=== PATIENT | female | born 1955 | race Caucasian/White ===

== ENCOUNTER 2016-06-25 10:10 | Emergency (ER) | payer OTHER ==
[2016-06-25] MEDS ORDERED: ONDANSETRON 4 MG/2 ML VIAL IVP STA (11:07)
[2016-06-25] MEDS ORDERED: PANTOPRAZOLE 40 MG/10 ML VIAL IVP STA (11:07)
[2016-06-25] MEDS ORDERED: SODIUM CHLORIDE 0.9% 1,000 ML IV STA (11:07)
[2016-06-25] MEDS ORDERED: MORPHINE SULFATE 4 MG/ML SYRINGE IVP STA ×2 (11:07→12:19)
--- NOTE | 2016-06-25 11:25 | ED ---
General Adult HPI - General Chief complaint: Abdominal Pain Stated complaint: rt side pain Time Seen by Provider: 06/25/16 10:53 Source: patient, RN notes reviewed, old records reviewed Mode of arrival: ambulatory Limitations: no limitations - History of Present Illness Initial comments: This is a 6-year-old female year for evaluation of right upper quadrant epigastric abdominal pain. Patient has medical history of similar issues. No comorbid conditions, patient has had thorough evaluation of this pain including EGD MRCP ultrasound, patient has had a cholecystectomy, she is told she has before mildly elevated liver enzymes. But no known causative issue of pain. Patient did see her family doctor yesterday and was given nausea medications and at that did help further the day but her pain returned today and was worse. Patient denies any fevers or Trilogy no diarrhea. - Related Data Home Medications Medication Instructions Recorded Confirmed PARoxetine [Paxil] 20 mg PO DAILY 06/01/15 06/25/16 OXcarbazepine [Trileptal] 300 mg PO QAM 03/03/16 06/25/16 Acetaminophen Tab [Tylenol Tab] 650 mg PO Q4H PRN 06/25/16 06/25/16 OXcarbazepine [Trileptal] 600 mg PO HS 06/25/16 06/25/16 Verapamil [Isoptin] 40 mg PO DAILY 06/25/16 06/25/16 Previous Rx's Medication Instructions Recorded Acetaminophen with Codeine 1 tab PO Q4H PRN #20 tab 06/25/16 [Tylenol w/codeine #3] Prochlorperazine [Compazine] 10 mg PO Q6H PRN #30 tab 06/25/16 Allergies Allergy/AdvReac Type Severity Reaction Status Date / Time ciprofloxacin [From Cipro] Allergy Rash/Hives Verified 06/25/16 10:57 ciprofloxacin HCl Allergy Rash/Hives Verified 06/25/16 10:57 [From Cipro] clarithromycin [From Biaxin] Allergy Rash/Hives Verified 06/25/16 10:57 hydrocodone bitartrate Allergy Rash/Hives Verified 06/25/16 10:57 [From Vicodin] hydromorphone HCl Allergy Itching Verified 06/25/16 10:57 [From Dilaudid] levofloxacin [From Levaquin] Allergy Rash/Hives Verified 06/25/16 10:57 lorazepam [From Ativan] Allergy SEIZURES Verified 06/25/16 10:57 meloxicam [From Mobic] Allergy Rash/Hives Verified 06/25/16 10:57 oxycodone Allergy Confusion Verified 06/25/16 10:57 Penicillins Allergy Swelling Verified 06/25/16 10:57 IN THROAT promethazine HCl Allergy SEIZURES Verified 06/25/16 10:57 [From Phenergan] propoxyphene napsylate Allergy Rash/Hives Verified 06/25/16 10:57 [From Darvocet-N] tramadol HCl [From Ultram] Allergy SEIZURES Verified 06/25/16 10:57 Review of Systems ROS Statement: Those systems with pertinent positive or pertinent negative responses have been documented in the HPI. ROS Other: All systems not noted in ROS Statement are negative. Past Medical History Past Medical History: Cancer, Hypertension, Seizure Disorder Additional Past Medical History / Comment(s): ABDOMINAL PAIN, Last seizure 2015, Chronic Pancreatitis. Hx Kidney Stones, Hx Cervical Cancer. HIATAL HERNIA. History of Any Multi-Drug Resistant Organisms: None Reported Past Surgical History: Appendectomy, Bowel Resection, Cholecystectomy, Hysterectomy Additional Past Surgical History / Comment(s): Surgery on RT Salivary Gland. RT ELBOW NERVE SURG. EGD & COLONOSCOPY, JADEN FUNDLAPLASTY 06/2015 Past Anesthesia/Blood Transfusion Reactions: Postoperative Nausea & Vomiting ( PONV) Additional Past Anesthesia/Blood Transfusion Reaction / Comment(s): TAKES LONG TIME TO AWAKEN Past Psychological History: Anxiety, Panic Disorder Additional Psychological History / Comment(s): PT STATED SHE SEE'S A THERAPIST. CURRENTLY DENIES ANY THOUGHTS OF HARMING SELF NO HOPELESSNESS FELINGS. Smoking Status: Former smoker Past Alcohol Use History: None Reported Additional Past Alcohol Use History / Comment(s): SMOKED 20 YEARS, 5 PPD. QUIT 1998 Past Drug Use History: None Reported - Past Family History Mother Sister(s) Family Medical History: Cancer Additional Family Medical History / Comment(s): COLON CANCER. GRANDFATHER ALSO HAD COLON CANCER Mother Family Medical History: Cancer, Myocardial Infarction ([place]) General Exam Limitations: no limitations General appearance: alert, in no apparent distress Head exam: Present: atraumatic, normocephalic, normal inspection Eye exam: Present: normal appearance, PERRL, EOMI. Absent: scleral icterus, conjunctival injection, periorbital swelling ENT exam: Present: normal exam, mucous membranes moist Neck exam: Present: normal inspection. Absent: tenderness, meningismus, lymphadenopathy Respiratory exam: Present: normal lung sounds bilaterally. Absent: respiratory distress, wheezes, rales, rhonchi, stridor Cardiovascular Exam: Present: regular rate, normal rhythm, normal heart sounds. Absent: systolic murmur, diastolic murmur, rubs, gallop, clicks GI/Abdominal exam: Present: soft, tenderness (Right upper quadrant), normal bowel sounds. Absent: distended, guarding, rebound, rigid Extremities exam: Present: normal inspection, full ROM, normal capillary refill. Absent: tenderness, pedal edema, joint swelling, calf tenderness Back exam: Present: normal inspection Neurological exam: Present: alert, oriented X3, CN II-XII intact Psychiatric exam: Present: normal affect, normal mood Skin exam: Present: warm, dry, intact, normal color. Absent: rash Course Vital Signs 06/25/16 10:22 Temperature 98.5 F Pulse Rate 87 Respiratory 20 Rate Blood Pressure 128/72 O2 Sat by Pulse 98 Oximetry - Reevaluation(s) Reevaluation #1: 06/25/16 12:20 Patient spent this time is resolved Medical Decision Making - Medical Decision Making 60 female with acute on chronic intractable abdominal pain, significant prior workup including multiple different testing and evaluation by stiffer specialist , patient is having exacerbation of pain today, laboratory is normal she is feeling better at this time and can be discharged home - Lab Data Result diagrams: 06/25/16 11:46 Lab Results 06/25/16 Range/Units 11:46 Sodium 141 (137-145) mmol/L Potassium 4.3 (3.5-5.1) mmol/L Chloride 106 (98-107) mmol/L Carbon Dioxide 24 (22-30) mmol/L Anion Gap 11 mmol/L BUN 10 (7-17) mg/dL Creatinine 0.65 (0.52-1.04) mg/dL Est GFR (MDRD) Af Amer >60 (>60 ml/min/1.73 sqM) Est GFR (MDRD) Non-Af >60 (>60 ml/min/1.73 sqM) Glucose 88 (74-99) mg/dL Calcium 9.4 (8.4-10.2) mg/dL Total Bilirubin 0.5 (0.2-1.3) mg/dL AST 22 (14-36) U/L ALT 32 (9-52) U/L Alkaline Phosphatase 116 (38-126) U/L Total Protein 6.6 (6.3-8.2) g/dL Albumin 4.3 (3.5-5.0) g/dL Amylase 49 (30-110) U/L Lipase 223 (23-300) U/L Disposition Clinical Impression: GERD (gastroesophageal reflux disease) Disposition: HOME SELF-CARE Instructions: Abdominal Pain (ED) Prescriptions: Acetaminophen with Codeine [Tylenol w/codeine #3] 1 tab PO Q4H PRN #20 tab PRN Reason: Pain Prochlorperazine [Compazine] 10 mg PO Q6H PRN #30 tab PRN Reason: Nausea Referrals: Sharon Paige MD [Primary Care Provider] - 1-2 days
[2016-06-25 12:02] LABS: ALT 32 U/L (9-52); AST 22 U/L (14-36); Alkaline Phosphatase 116 U/L (38-126); Amylase 49 U/L (30-110); Anion Gap 11 mmol/L; Blood Urea Nitrogen 10 mg/dL (7-17); Calcium 9.4 mg/dL (8.4-10.2); Carbon Dioxide 24 mmol/L (22-30); Chloride 106 mmol/L (98-107); Glucose 88 mg/dL (74-99); Non-African American GFR(MDRD) >60 (>60 ml/min/1.73 sqM); Potassium 4.3 mmol/L (3.5-5.1); Sodium 141 mmol/L (137-145); Total Bilirubin 0.5 mg/dL (0.2-1.3); Total Protein 6.6 g/dL (6.3-8.2)
[2016-06-25 12:16] LABS: Creatine Kinase 54 U/L (30-135)
[2016-06-25] MEDS ORDERED: METOCLOPRAMIDE 5 MG/ML 2 ML VIAL IVP STA (12:18)
[2016-06-25] MEDS ORDERED: diphenhydrAMINE 50 MG/ML 1 ML VIAL IVP STA (12:18)
[2016-06-25 12:29] LABS: Creatine Kinase MB 0.4 ng/mL (0.0-2.4); Troponin I <0.012 ng/mL (0.000-0.034)
[2016-06-25 12:44] VITALS: RESP 18
[2016-06-25 13:09] LABS: Basophils % (A) 1 %; CH 33.6; CHCM 35.7; Eosinophils # (A) 0.2 k/uL (0-0.7); Eosinophils % (A) 2 %; HCT 41.7 % (34.0-46.0); HDW 2.68; Luc # (Auto) 0.15; Luc % (Auto) 2; Lymphocytes # (A) 1.5 k/uL (1.0-4.8); Lymphocytes % (A) 23 %; MCH 31.7 pg (25.0-35.0); MCHC 33.6 g/dL (31.0-37.0); MCV 94.6 fL (80.0-100.0); Mean Platelet Volume 6.8; Monocytes # (A) 0.4 k/uL (0-1.0); Monocytes % (A) 6 %; Neutrophils # (A) 4.2 k/uL (1.3-7.7); Neutrophils % (A) 66 %; RBC 4.41 m/uL (3.80-5.40); RDW 12.3 % (11.5-15.5); WBC 6.5 k/uL (3.8-10.6); WBC (Perox) 6.37
[2016-06-25 13:20] VITALS: BP 140/67; PULSE 92; TEMP 97.8
== END 2016-06-25 13:20 | disposition home or self-care (01) ==
LOC: EC 10:10
DX: K21.9 Gastro-esophageal reflux disease without esophagitis (principal); F41.9 Anxiety disorder, unspecified; F41.0 Panic disorder [episodic paroxysmal anxiety]; G40.909 Epilepsy, unspecified, not intractable, without status epilepticus; I10 Essential (primary) hypertension; Z87.891 Personal history of nicotine dependence; Z79.899 Other long term (current) drug therapy; Z88.1 Allergy status to other antibiotic agents; Z88.5 Allergy status to narcotic agent; Z88.8 Allergy status to other drugs, medicaments and biological substances; Z88.0 Allergy status to penicillin; Z87.19 Personal history of other diseases of the digestive system; Z85.41 Personal history of malignant neoplasm of cervix uteri; Z90.49 Acquired absence of other specified parts of digestive tract; Z90.710 Acquired absence of both cervix and uterus; Z98.890 Other specified postprocedural states
CPT/HCPCS: 99284; 96374; 96375 ×4; 96376; 96361; 36415; 80053; 82150; 82550; 82553; 83690; 84484; 85025; J2270; J1200; J2765; J2405; C9113

== ENCOUNTER 2016-06-29 12:05 | Emergency (ER) | payer OTHER ==
[2016-06-29 12:35] VITALS: RESP 16
[2016-06-29] MEDS ORDERED: ONDANSETRON 4 MG/2 ML VIAL IVP STA (12:46)
[2016-06-29] MEDS ORDERED: DIAZEPAM 5 MG/ML 2 ML SYRINGE IVP STA (12:46)
[2016-06-29] MEDS ORDERED: SODIUM CHLORIDE 0.9% 1,000 ML IV STA ×2 (12:46)
--- NOTE | 2016-06-29 12:52 | ED ---
General Adult HPI - General Chief complaint: Abdominal Pain Stated complaint: RUQ Pain Time Seen by Provider: 06/29/16 12:33 Source: family, RN notes reviewed Mode of arrival: ambulatory Limitations: no limitations - History of Present Illness Initial comments: Patient is a 60-year-old female with significant past medical history for finger times, who presents emergency room today with a chief complaint of increased abdominal pain to the right upper quadrant. Patient does admit that she's had this pain in the past. She admits that she's had increased nausea. She states the nausea is worse than the pain. She states she does take nausea medication of Reglan at home. States tried this with little relief. Denies any vomiting. Patient admits that when she was in the waiting room waiting to be seen she did have a seizure. She does remember it. She states consistent with seizure that she's had in the past. She does admit that she takes Trileptal. States been taking this medication. Patient denies any other complaints or symptoms. Patient denies any recent fever, chills, shortness of breath, chest pain, vomiting, numbness or tingling, dysuria or hematuria, constipation or diarrhea, headaches or visual changes, or any other complaints. - Related Data Home Medications Medication Instructions Recorded Confirmed PARoxetine [Paxil] 20 mg PO DAILY 06/01/15 06/29/16 OXcarbazepine [Trileptal] 300 mg PO QAM 03/03/16 06/29/16 Acetaminophen Tab [Tylenol Tab] 650 mg PO Q4H PRN 06/25/16 06/29/16 OXcarbazepine [Trileptal] 600 mg PO HS 06/25/16 06/29/16 Verapamil [Isoptin] 40 mg PO HS 06/25/16 06/29/16 Previous Rx's Medication Instructions Recorded Acetaminophen with Codeine 1 tab PO Q4H PRN #20 tab 06/25/16 [Tylenol w/codeine #3] Prochlorperazine [Compazine] 10 mg PO Q6H PRN #30 tab 06/25/16 Metoclopramide HCl [Reglan] 10 mg PO Q6HR PRN #5 day 06/29/16 Allergies Allergy/AdvReac Type Severity Reaction Status Date / Time ciprofloxacin [From Cipro] Allergy Rash/Hives Verified 06/29/16 13:01 ciprofloxacin HCl Allergy Rash/Hives Verified 06/29/16 13:01 [From Cipro] clarithromycin [From Biaxin] Allergy Rash/Hives Verified 06/29/16 13:01 hydrocodone bitartrate Allergy Rash/Hives Verified 06/29/16 13:01 [From Vicodin] hydromorphone HCl Allergy Itching Verified 06/29/16 13:01 [From Dilaudid] levofloxacin [From Levaquin] Allergy Rash/Hives Verified 06/29/16 13:01 lorazepam [From Ativan] Allergy SEIZURES Verified 06/29/16 13:01 meloxicam [From Mobic] Allergy Rash/Hives Verified 06/29/16 13:01 oxycodone Allergy Confusion Verified 06/29/16 13:01 Penicillins Allergy Swelling Verified 06/29/16 13:01 IN THROAT promethazine HCl Allergy SEIZURES Verified 06/29/16 13:01 [From Phenergan] propoxyphene napsylate Allergy Rash/Hives Verified 06/29/16 13:01 [From Darvocet-N] tramadol HCl [From Ultram] Allergy SEIZURES Verified 06/29/16 13:01 Review of Systems ROS Statement: Those systems with pertinent positive or pertinent negative responses have been documented in the HPI. ROS Other: All systems not noted in ROS Statement are negative. Past Medical History Past Medical History: Cancer, Hypertension, Seizure Disorder Additional Past Medical History / Comment(s): ABDOMINAL PAIN, Last seizure 2015, Chronic Pancreatitis. Hx Kidney Stones, Hx Cervical Cancer. HIATAL HERNIA. History of Any Multi-Drug Resistant Organisms: None Reported Past Surgical History: Appendectomy, Bowel Resection, Cholecystectomy, Hysterectomy Additional Past Surgical History / Comment(s): Surgery on RT Salivary Gland. RT ELBOW NERVE SURG. EGD & COLONOSCOPY, JADEN FUNDLAPLASTY 06/2015 Past Anesthesia/Blood Transfusion Reactions: Postoperative Nausea & Vomiting ( PONV) Additional Past Anesthesia/Blood Transfusion Reaction / Comment(s): TAKES LONG TIME TO AWAKEN Past Psychological History: Anxiety, Panic Disorder Additional Psychological History / Comment(s): PT STATED SHE SEE'S A THERAPIST. CURRENTLY DENIES ANY THOUGHTS OF HARMING SELF NO HOPELESSNESS FELINGS. Smoking Status: Former smoker Past Alcohol Use History: None Reported Additional Past Alcohol Use History / Comment(s): SMOKED 20 YEARS, 5 PPD. QUIT 1998 Past Drug Use History: None Reported - Past Family History Mother Sister(s) Family Medical History: Cancer Additional Family Medical History / Comment(s): COLON CANCER. GRANDFATHER ALSO HAD COLON CANCER Mother Family Medical History: Cancer, Myocardial Infarction ([place]) General Exam - General Exam Comments Initial Comments: General: The patient is awake and alert, in no distress, and does not appear acutely ill. Eye: Pupils are equal, round and reactive to light, extra-ocular movements are intact. No nystagmus. There is normal conjunctiva bilaterally. No signs of icterus. Ears, nose, mouth and throat: There are moist mucous membranes and no oral lesions. Neck: The neck is supple, there is no tenderness or JVD. Cardiovascular: There is a regular rate and rhythm. No murmur, rub or gallop is appreciated. Respiratory: Lungs are clear to auscultation, respirations are non-labored, breath sounds are equal. No wheezes, stridor, rales, or rhonchi. Gastrointestinal: Normal appearance then. Normal bowel sounds. Abdomen soft on palpation. Patient does have mild tenderness right upper quadrant. No rebound tenderness. No guarding. No CVA tenderness. Musculoskeletal: Normal ROM, no tenderness. Strength 5/5. Sensation intact. Pulses equal bilaterally 2+. Neurological: A&O x 3. CN II-XII intact, There are no obvious motor or sensory deficits. Coordination appears grossly intact. Speech is normal. Skin: Skin is warm and dry and no rashes or lesions are noted. Psychiatric: Cooperative, appropriate mood & affect, normal judgment. Limitations: no limitations Course Vital Signs 06/29/16 12:29 Temperature 98.9 F Pulse Rate 64 Respiratory 16 Rate Blood Pressure 163/77 O2 Sat by Pulse 96 Oximetry Medical Decision Making - Medical Decision Making Case discussed in detail with attending physician Dr. Terrazas. Patient reexamined at this time shows no signs of distress. Patient labs been reviewed and are unremarkable. Patient states she's feeling much better here in the emergency room after she was given the Reglan. She'll be discharged home on Reglan advised follow-up with her GI specialist and also family doctor. Advised return if any symptoms increase or worsen or for any other concerns. - Lab Data Result diagrams: 06/29/16 13:42 06/29/16 13:42 Lab Results 06/29/16 06/29/16 06/29/16 Range/Units 13:42 13:42 14:42 WBC 6.3 (3.8-10.6) k/uL RBC 4.30 (3.80-5.40) m/uL Hgb 14.2 (11.4-16.0) gm/dL Hct 40.7 (34.0-46.0) % MCV 94.6 (80.0-100.0) fL MCH 32.9 (25.0-35.0) pg MCHC 34.8 (31.0-37.0) g/dL RDW 12.2 (11.5-15.5) % Plt Count 219 (150-450) k/uL Neutrophils % 68 % Lymphocytes % 22 % Monocytes % 6 % Eosinophils % 2 % Basophils % 1 % Neutrophils # 4.3 (1.3-7.7) k/uL Lymphocytes # 1.4 (1.0-4.8) k/uL Monocytes # 0.4 (0-1.0) k/uL Eosinophils # 0.1 (0-0.7) k/uL Basophils # 0.1 (0-0.2) k/uL Sodium 143 (137-145) mmol/L Potassium 3.7 (3.5-5.1) mmol/L Chloride 108 H (98-107) mmol/L Carbon Dioxide 24 (22-30) mmol/L Anion Gap 11 mmol/L BUN 11 (7-17) mg/dL Creatinine 0.60 (0.52-1.04) mg/dL Est GFR (MDRD) Af Amer >60 (>60 ml/min/1.73 sqM) Est GFR (MDRD) Non-Af >60 (>60 ml/min/1.73 sqM) Glucose 119 H (74-99) mg/dL Calcium 9.7 (8.4-10.2) mg/dL Total Bilirubin 0.5 (0.2-1.3) mg/dL AST 22 (14-36) U/L ALT 28 (9-52) U/L Alkaline Phosphatase 99 (38-126) U/L Total Protein 6.4 (6.3-8.2) g/dL Albumin 4.2 (3.5-5.0) g/dL Amylase 54 (30-110) U/L Lipase 258 (23-300) U/L Urine Color Yellow Urine Appearance Clear (Clear) Urine pH 6.5 (5.0-8.0) Ur Specific [place] 1.015 (1.001-1.035) Urine Protein Negative (Negative) Urine Glucose (UA) Negative (Negative) Urine Ketones Negative (Negative) Urine Blood Negative (Negative) Urine Nitrate Negative (Negative) Urine Bilirubin Negative (Negative) Urine Urobilinogen <2.0 (<2.0) mg/dL Ur Leukocyte Esterase Small H (Negative) Urine RBC <1 (0-5) /hpf Urine WBC 5 (0-5) /hpf Ur Squamous Epith Cells 1 (0-4) /hpf Urine Bacteria Rare H (None) /hpf Disposition Clinical Impression: Nausea, Chronic abdominal pain Disposition: HOME SELF-CARE Condition: Good Instructions: Abdominal Pain (ED) Additional Instructions: Please follow up with the family doctor/ GI specialist over the next 2-5 days as discussed. Please use nausea medication as prescribed and return here to the emergency room if any symptoms increase or worsen or for any other concerns. Prescriptions: Metoclopramide HCl [Reglan] 10 mg PO Q6HR PRN #5 day PRN Reason: Nausea Referrals: Sharon Paige MD [Primary Care Provider] - 1-2 days Angeles Monreal MD [STAFF PHYSICIAN] - 1-2 days Time of Disposition: 15:24
[2016-06-29 13:59] LABS: Basophils # (A) 0.1 k/uL (0-0.2); Basophils % (A) 1 %; CH 33.8; CHCM 35.9; Eosinophils # (A) 0.1 k/uL (0-0.7); Eosinophils % (A) 2 %; HCT 40.7 % (34.0-46.0); HDW 2.77; HGB 14.2 gm/dL (11.4-16.0); Luc # (Auto) 0.13; Luc % (Auto) 2; Lymphocytes # (A) 1.4 k/uL (1.0-4.8); Lymphocytes % (A) 22 %; MCH 32.9 pg (25.0-35.0); MCHC 34.8 g/dL (31.0-37.0); MCV 94.6 fL (80.0-100.0); Mean Platelet Volume 7.2; Monocytes # (A) 0.4 k/uL (0-1.0); Monocytes % (A) 6 %; Neutrophils # (A) 4.3 k/uL (1.3-7.7); Neutrophils % (A) 68 %; RDW 12.2 % (11.5-15.5); WBC 6.3 k/uL (3.8-10.6); WBC (Perox) 6.66
[2016-06-29 14:13] LABS: ALT 28 U/L (9-52); AST 22 U/L (14-36); Alkaline Phosphatase 99 U/L (38-126); Amylase 54 U/L (30-110); Anion Gap 11 mmol/L; Blood Urea Nitrogen 11 mg/dL (7-17); Calcium 9.7 mg/dL (8.4-10.2); Carbon Dioxide 24 mmol/L (22-30); Chloride 108 mmol/L (98-107); Glucose 119 mg/dL (74-99); Non-African American GFR(MDRD) >60 (>60 ml/min/1.73 sqM); Potassium 3.7 mmol/L (3.5-5.1); Sodium 143 mmol/L (137-145); Total Bilirubin 0.5 mg/dL (0.2-1.3); Total Protein 6.4 g/dL (6.3-8.2)
--- NOTE | 2016-06-29 14:38 | XR ---
EXAMINATION TYPE: XR KUB DATE OF EXAM: 06/29/2016 2:15 PM CLINICAL HISTORY: Right-sided abdominal pain for a few weeks. History of pancreatitis and colitis. TECHNIQUE: 2 upright KUB images of the abdomen are obtained. COMPARISON: CT abdomen and pelvis February 04, 2016. Abdominal x-ray February 23, 2016. FINDINGS: Scattered gas is seen in non-distended small bowel loops. Gas and fecal material is seen in non-distended colon densities from prior surgery at pubic symphysis are redemonstrated. Cholecyste ctomy clips are again seen. Lung bases are clear. No pneumoperitoneum is identified. IMPRESSION: Overall nonobstructive bowel gas pattern.
[2016-06-29] MEDS ORDERED: ACETAMINOPHEN IV (For NPO) 1,000 MG in SALINE 100 100ML.BAG IVPB STA (14:41)
[2016-06-29] MEDS ORDERED: METOCLOPRAMIDE 5 MG/ML 2 ML VIAL IVP STA (14:59)
[2016-06-29 15:00] LABS: Appearance,Urine Clear (Clear); Bacteria,Urine Rare /hpf; Bilirubin,Urine Negative (Negative); Glucose,Urine (UA) Negative (Negative); Ketones,Urine Negative (Negative); Leukocyte Esterase,Urine Small (Negative); Nitrite,Urine Negative (Negative); PH, Urine 6.5 (5.0-8.0); Particle Count 1429; Protein,Urine Negative (Negative); RBC,Urine <1 /hpf (0-5); Specific Gravity,Urine 1.015 (1.001-1.035); Squamous Epithelial Cell,Urine 1 /hpf (0-4); UA Billing (MACRO vs. MICRO) MICRO; Urobilinogen,Urine <2.0 mg/dL (<2.0); WBC,Urine 5 /hpf (0-5)
[2016-06-29 15:49] VITALS: BP 155/78; PULSE 94; TEMP 97.5
== END 2016-06-29 15:49 | disposition home or self-care (01) ==
LOC: EC 12:05
DX: G89.29 Other chronic pain (principal); R10.11 Right upper quadrant pain; R11.0 Nausea; G40.909 Epilepsy, unspecified, not intractable, without status epilepticus; I10 Essential (primary) hypertension; F41.0 Panic disorder [episodic paroxysmal anxiety]; Z79.899 Other long term (current) drug therapy; Z87.891 Personal history of nicotine dependence; Z87.19 Personal history of other diseases of the digestive system; Z87.442 Personal history of urinary calculi
CPT/HCPCS: 36415; 80053; 80183; 82150; 83690; 85025; 81001; 74000; 99284; 96365; 96375 ×2; 96361 ×2; J2765; J3360; J2405; J0131

== ENCOUNTER → 2016-08-07 | Outpatient (CLI) | payer OTHER ==
--- NOTE | 2016-08-07 11:35 | FL ---
EXAMINATION TYPE: FL UGI w esophagus DATE OF EXAM: 08/07/2016 10:41 AM COMPARISON: Prior exam 03 July 2015 HISTORY: Gastroesophageal reflux disease TECHNIQUE: A single/double contrast UGI study is performed. FINDINGS: Swallowing mechanism is normal. No abnormal collections of contrast, the esophagus shows no rmal motility, no extrinsic or intrinsic lesion. At the level of the distal esophagus there is promin ence of the distal esophagus, spectral is a possible recurrent small hiatal hernia present. Gastroeso phageal reflux, reflux from the level of the recurrent hiatal hernia or distal esophageal pouch is no flory into the thoracic esophagus, tertiary esophageal contractions are present. Stomach shows no abnor mal collections of contrast. Duodenal bulb and duodenal sweep are normal. IMPRESSION: Findings compatible with patient's history gastroesophageal reflux disease. Suspect recur rence of hiatal hernia.
== END | disposition home or self-care (01) ==
LOC: RADFLWHC 09:32
PROVIDERS: ATTEND Surgery
DX: K21.9 Gastro-esophageal reflux disease without esophagitis (principal)
CPT/HCPCS: 74240

== ENCOUNTER 2016-08-27 21:08 | Emergency (ER) | payer OTHER ==
[2016-08-27 21:37] VITALS: RESP 18
[2016-08-27] MEDS ORDERED: SODIUM CHLORIDE 0.9% 1,000 ML IV STA (22:16)
--- NOTE | 2016-08-27 22:32 | ED ---
Headache HPI - General Chief Complaint: Headache Stated Complaint: HX: Seizure/brain shocks Time Seen by Provider: 08/27/16 21:50 Source: RN notes reviewed Mode of arrival: wheelchair Limitations: no limitations - History of Present Illness Initial Comments: Patient is a 61-year-old female presents emergency room for evaluation. Patient states she's been having "brain shocks" throughout the day. Patient does state that she's experienced these symptoms in the past before. Patient states she has a history of seizures. Patient states that today she is having worsening brain shocks and feels like her brain is being squeezed. Patient states feeling very drowsy and tired starting this afternoon. Patient's is present with patient. Patient's states that patient began complaining of headache while shopping around noon. Patient's states they went home and patient took a Valium and went for nap. Patient's states that patient was still complaining of head pain so they brought her to the emergency room. Patient's states after arriving in the emergency room patient has been more tired and not acting herself. Patient states she feels weak all over. Patient denies any one-sided weakness. Patient denies changes in vision. Patient denies chest pain, shortness of breath, dizziness. Patient's states that patient takes Briviact for seizures. Patient's states that they had a recent increase in the dose of Briviact. Patient denies alcohol use or illicit drug use. Patient denies accidentally taking more than one of her medications at a time. - Related Data Home Medications Medication Instructions Recorded Confirmed Acetaminophen Tab [Tylenol Tab] 650 mg PO Q4H PRN 06/25/16 08/27/16 Verapamil [Isoptin] 40 mg PO TID 06/25/16 08/27/16 Brivaracetam [Briviact] 100 mg PO BID 08/12/16 08/27/16 Omeprazole [PriLOSEC] 20 mg PO AC-BRKFST 08/12/16 08/27/16 Pyridoxine [Vitamin B-6] 100 mg PO DAILY 08/12/16 08/27/16 Allergies Allergy/AdvReac Type Severity Reaction Status Date / Time ciprofloxacin [From Cipro] Allergy Rash/Hives Verified 08/27/16 21:33 ciprofloxacin HCl Allergy Rash/Hives Verified 08/27/16 21:33 [From Cipro] clarithromycin [From Biaxin] Allergy Rash/Hives Verified 08/27/16 21:33 hydrocodone bitartrate Allergy Rash/Hives Verified 08/27/16 21:33 [From Vicodin] hydromorphone HCl Allergy Itching Verified 08/27/16 21:33 [From Dilaudid] levofloxacin [From Levaquin] Allergy Rash/Hives Verified 08/27/16 21:33 lorazepam [From Ativan] Allergy SEIZURES Verified 08/27/16 21:33 meloxicam [From Mobic] Allergy Rash/Hives Verified 08/27/16 21:33 oxycodone Allergy Confusion Verified 08/27/16 21:33 Penicillins Allergy Swelling Verified 08/27/16 21:33 IN THROAT promethazine HCl Allergy SEIZURES Verified 08/27/16 21:33 [From Phenergan] propoxyphene napsylate Allergy Rash/Hives Verified 08/27/16 21:33 [From Darvocet-N] tramadol HCl [From Ultram] Allergy SEIZURES Verified 08/27/16 21:33 Review of Systems ROS Statement: Those systems with pertinent positive or pertinent negative responses have been documented in the HPI. ROS Other: All systems not noted in ROS Statement are negative. Past Medical History Past Medical History: Cancer, Hypertension, Seizure Disorder Additional Past Medical History / Comment(s): ABDOMINAL PAIN, Last seizure 2015, Chronic Pancreatitis. Hx Kidney Stones, Hx Cervical Cancer. HIATAL HERNIA. History of Any Multi-Drug Resistant Organisms: None Reported Past Surgical History: Appendectomy, Bowel Resection, Cholecystectomy, Hysterectomy Additional Past Surgical History / Comment(s): Surgery on RT Salivary Gland. RT ELBOW NERVE SURG. EGD & COLONOSCOPY, JADEN FUNDLAPLASTY 06/2015 Past Anesthesia/Blood Transfusion Reactions: Postoperative Nausea & Vomiting ( PONV) Additional Past Anesthesia/Blood Transfusion Reaction / Comment(s): TAKES LONG TIME TO AWAKEN Past Psychological History: Anxiety, Panic Disorder Additional Psychological History / Comment(s): PT STATED SHE SEE'S A THERAPIST. CURRENTLY DENIES ANY THOUGHTS OF HARMING SELF NO HOPELESSNESS FELINGS. Smoking Status: Former smoker Past Alcohol Use History: None Reported Additional Past Alcohol Use History / Comment(s): SMOKED 20 YEARS, 5 PPD. QUIT 1998 Past Drug Use History: None Reported - Past Family History Mother Sister(s) Family Medical History: Cancer Additional Family Medical History / Comment(s): COLON CANCER. GRANDFATHER ALSO HAD COLON CANCER Mother Family Medical History: Cancer, Myocardial Infarction ([place]) General Exam - General Exam Comments Initial Comments: Sitting in exam room, sleeping, answers questions when spoken to. Limitations: no limitations General appearance: alert, in no apparent distress Head exam: Present: atraumatic, normocephalic, normal inspection Eye exam: Present: normal appearance, PERRL, EOMI Pupils: Present: normal accommodation Neck exam: Present: normal inspection, full ROM. Absent: tenderness, lymphadenopathy Respiratory exam: Present: normal lung sounds bilaterally. Absent: respiratory distress Cardiovascular Exam: Present: regular rate, normal rhythm, normal heart sounds Extremities exam: Present: normal inspection, full ROM, normal capillary refill Back exam: Present: normal inspection, full ROM Expanded Neurological exam: Present: inattentive Sensory exam: Upper Extremity Light Touch: Normal, Lower Extremity Light Touch: Normal Motor strength exam: RUE: 5, LUE: 5, RLE: 5, LLE: 5 Eye Response: (3) open to voice Motor Response: (6) obeys commands Verbal Response: (4) confused conversation Psychiatric exam: Present: normal affect, normal mood Skin exam: Present: warm, dry, intact, normal color. Absent: rash Course Vital Signs 08/27/16 08/27/16 08/27/16 21:33 22:18 22:49 Temperature 98.1 F Pulse Rate 98 84 83 Respiratory 18 18 18 Rate Blood Pressure 158/71 155/71 164/79 O2 Sat by Pulse 99 Oximetry 08/27/16 08/27/16 08/28/16 23:18 23:48 01:22 Temperature 97.2 F L Pulse Rate 86 82 80 Respiratory 18 18 18 Rate Blood Pressure 141/71 143/87 127/59 O2 Sat by Pulse 100 100 98 Oximetry Medical Decision Making - Medical Decision Making Patient is a 61-year-old female presents to the emergency room for evaluation of headache and drowsiness. Patient's lab show no concerning findings. Urine drug screen significant for benzos. It is possible patient's seizure medications could be causing her symptoms or patient may have taken too much of her valium. CT of brain negative for any acute findings. Patient was given fluids. Patient's symptoms significantly improved and wished to be discharged home. Advised patient to follow-up with her neurologist or primary care provider first thing tomorrow morning. Patient and her state they understand everything that was discussed with them. Return parameters discussed. Case discussed with Dr. Nogueira. - Lab Data Result diagrams: 08/27/16 23:07 08/27/16 23:07 Lab Results 08/27/16 08/27/16 08/27/16 Range/Units 23:07 23:07 23:07 WBC 7.8 (3.8-10.6) k/uL RBC 4.10 (3.80-5.40) m/uL Hgb 13.7 (11.4-16.0) gm/dL Hct 38.2 (34.0-46.0) % MCV 93.2 (80.0-100.0) fL MCH 33.5 (25.0-35.0) pg MCHC 36.0 (31.0-37.0) g/dL RDW 12.6 (11.5-15.5) % Plt Count 239 (150-450) k/uL Neutrophils % 52 % Lymphocytes % 35 % Monocytes % 6 % Eosinophils % 4 % Basophils % 1 % Neutrophils # 4.0 (1.3-7.7) k/uL Lymphocytes # 2.7 (1.0-4.8) k/uL Monocytes # 0.4 (0-1.0) k/uL Eosinophils # 0.3 (0-0.7) k/uL Basophils # 0.0 (0-0.2) k/uL PT (9.0-12.0) sec INR (<1.1) APTT (22.0-30.0) sec Sodium 142 (137-145) mmol/L Potassium 4.1 (3.5-5.1) mmol/L Chloride 110 H (98-107) mmol/L Carbon Dioxide 24 (22-30) mmol/L Anion Gap 8 mmol/L BUN 12 (7-17) mg/dL Creatinine 0.70 (0.52-1.04) mg/dL Est GFR (MDRD) Af Amer >60 (>60 ml/min/1.73 sqM) Est GFR (MDRD) Non-Af >60 (>60 ml/min/1.73 sqM) Glucose 95 (74-99) mg/dL Calcium 9.2 (8.4-10.2) mg/dL Magnesium 2.0 (1.6-2.3) mg/dL Total Bilirubin 0.4 (0.2-1.3) mg/dL AST 26 (14-36) U/L ALT 33 (9-52) U/L Alkaline Phosphatase 94 (38-126) U/L Total Creatine Kinase 42 (30-135) U/L CK-MB (CK-2) 0.5 (0.0-2.4) ng/mL CK-MB (CK-2) Rel Index 1.2 Troponin I <0.012 (0.000-0.034) ng/mL Total Protein 5.7 L (6.3-8.2) g/dL Albumin 3.8 (3.5-5.0) g/dL Salicylates <1.0 mg/dL Urine Opiates Screen (NotDetected) Ur Oxycodone Screen (NotDetected) Urine Methadone Screen (NotDetected) Ur Propoxyphene Screen (NotDetected) Acetaminophen <10.0 ug/mL Ur Barbiturates Screen (NotDetected) U Tricyclic Antidepress (NotDetected) Ur Phencyclidine Scrn (NotDetected) Ur Amphetamines Screen (NotDetected) U Methamphetamines Scrn (NotDetected) U Benzodiazepines Scrn (NotDetected) Urine Cocaine Screen (NotDetected) U Marijuana (THC) Screen (NotDetected) Serum Alcohol <10 mg/dL 08/27/16 08/27/16 Range/Units 23:07 23:33 WBC (3.8-10.6) k/uL RBC (3.80-5.40) m/uL Hgb (11.4-16.0) gm/dL Hct (34.0-46.0) % MCV (80.0-100.0) fL MCH (25.0-35.0) pg MCHC (31.0-37.0) g/dL RDW (11.5-15.5) % Plt Count (150-450) k/uL Neutrophils % % Lymphocytes % % Monocytes % % Eosinophils % % Basophils % % Neutrophils # (1.3-7.7) k/uL Lymphocytes # (1.0-4.8) k/uL Monocytes # (0-1.0) k/uL Eosinophils # (0-0.7) k/uL Basophils # (0-0.2) k/uL PT 10.2 (9.0-12.0) sec INR 1.0 (<1.1) APTT 18.4 L (22.0-30.0) sec Sodium (137-145) mmol/L Potassium (3.5-5.1) mmol/L Chloride (98-107) mmol/L Carbon Dioxide (22-30) mmol/L Anion Gap mmol/L BUN (7-17) mg/dL Creatinine (0.52-1.04) mg/dL Est GFR (MDRD) Af Amer (>60 ml/min/1.73 sqM) Est GFR (MDRD) Non-Af (>60 ml/min/1.73 sqM) Glucose (74-99) mg/dL Calcium (8.4-10.2) mg/dL Magnesium (1.6-2.3) mg/dL Total Bilirubin (0.2-1.3) mg/dL AST (14-36) U/L ALT (9-52) U/L Alkaline Phosphatase (38-126) U/L Total Creatine Kinase (30-135) U/L CK-MB (CK-2) (0.0-2.4) ng/mL CK-MB (CK-2) Rel Index Troponin I (0.000-0.034) ng/mL Total Protein (6.3-8.2) g/dL Albumin (3.5-5.0) g/dL Salicylates mg/dL Urine Opiates Screen Not Detected (NotDetected) Ur Oxycodone Screen Not Detected (NotDetected) Urine Methadone Screen Not Detected (NotDetected) Ur Propoxyphene Screen Not Detected (NotDetected) Acetaminophen ug/mL Ur Barbiturates Screen Not Detected (NotDetected) U Tricyclic Antidepress Not Detected (NotDetected) Ur Phencyclidine Scrn Not Detected (NotDetected) Ur Amphetamines Screen Not Detected (NotDetected) U Methamphetamines Scrn Not Detected (NotDetected) U Benzodiazepines Scrn Detected H (NotDetected) Urine Cocaine Screen Not Detected (NotDetected) U Marijuana (THC) Screen Not Detected (NotDetected) Serum Alcohol mg/dL - Radiology Data Radiology results: report reviewed, image reviewed Disposition Clinical Impression: Headache Disposition: HOME SELF-CARE Condition: Good Instructions: Acute Headache (ED) Additional Instructions: Please follow up with primary care provider and neurologist in 24-48 hours. If any new symptom arises or symptoms worsen, return to ER as soon as possible. Referrals: Sharon Paige MD [Primary Care Provider] - 1-2 days Elena Gonzalez MD [STAFF PHYSICIAN] - 1-2 days Time of Disposition: 01:02
[2016-08-27 23:30] LABS: Basophils % (A) 1 %; CH 34.2; CHCM 36.8; Eosinophils # (A) 0.3 k/uL (0-0.7); Eosinophils % (A) 4 %; HCT 38.2 % (34.0-46.0); HDW 2.99; HGB 13.7 gm/dL (11.4-16.0); Luc # (Auto) 0.27; Luc % (Auto) 3; Lymphocytes # (A) 2.7 k/uL (1.0-4.8); Lymphocytes % (A) 35 %; MCH 33.5 pg (25.0-35.0); MCV 93.2 fL (80.0-100.0); Mean Platelet Volume 6.6; Monocytes # (A) 0.4 k/uL (0-1.0); Monocytes % (A) 6 %; Neutrophils % (A) 52 %; RDW 12.6 % (11.5-15.5); WBC 7.8 k/uL (3.8-10.6); WBC (Perox) 7.82
[2016-08-27 23:43] LABS: ALT 33 U/L (9-52); AST 26 U/L (14-36); Acetaminophen <10.0 ug/mL; Alcohol <10 mg/dL; Alkaline Phosphatase 94 U/L (38-126); Anion Gap 8 mmol/L; Blood Urea Nitrogen 12 mg/dL (7-17); Calcium 9.2 mg/dL (8.4-10.2); Carbon Dioxide 24 mmol/L (22-30); Chloride 110 mmol/L (98-107); Glucose 95 mg/dL (74-99); Non-African American GFR(MDRD) >60 (>60 ml/min/1.73 sqM); Potassium 4.1 mmol/L (3.5-5.1); Salicylate <1.0 mg/dL; Sodium 142 mmol/L (137-145); Total Bilirubin 0.4 mg/dL (0.2-1.3); Total Protein 5.7 g/dL (6.3-8.2)
[2016-08-27 23:44] LABS: Prothrombin Time 10.2 sec (9.0-12.0)
[2016-08-27 23:45] LABS: Partial Thromboplastin Time 18.4 sec (22.0-30.0)
[2016-08-27 23:58] LABS: Creatine Kinase 42 U/L (30-135)
[2016-08-28 00:11] LABS: Creatine Kinase MB 0.5 ng/mL (0.0-2.4); Troponin I <0.012 ng/mL (0.000-0.034)
--- NOTE | 2016-08-28 00:41 | CT ---
EXAM: CT Head Without Intravenous Contrast. CLINICAL HISTORY: Reason: Pain TECHNIQUE: Axial computed tomography images of the head/brain without intravenous contrast. CTDI is 57.4 mGy and DLP is 1064.3 mGy-cm This CT exam was performed using one or more of the following dose reduction techniques: automated exposure control, adjustment of the mA and/or kV according to patient size, and/or use of iterative reconstruction technique. COMPARISON: 11/26/13 FINDINGS: Brain: Bifrontal cerebral volume loss appears unchanged from previous study. No hemorrhage. No significant white matter disease. No edema. Ventricles: Unremarkable. No ventriculomegaly. Bones: No acute fracture. Sinuses: Unremarkable as visualized. No acute sinusitis. Mastoid air cells: Unremarkable as visualized. No mastoid effusion. IMPRESSION: No acute intracranial abnormality.
--- NOTE | 2016-08-28 00:59 | XR ---
EXAM: XR Chest, 2 Views. CLINICAL HISTORY: Reason: Chest Pain TECHNIQUE: Frontal and lateral views of the chest. COMPARISON: No relevant prior studies available. FINDINGS: Lungs: Unremarkable. No consolidation. Pleural spaces: Unremarkable. No pneumothorax. Heart: Unremarkable. No cardiomegaly. Mediastinum: Unremarkable. Bones: Unremarkable. No acute fracture. IMPRESSION: No acute findings in the chest
[2016-08-28 01:24] VITALS: BP 127/59; PULSE 80; TEMP 97.2
== END 2016-08-28 01:24 | disposition home or self-care (01) ==
LOC: EC 21:08
DX: R51 Headache (principal); I10 Essential (primary) hypertension; G40.909 Epilepsy, unspecified, not intractable, without status epilepticus; Z85.41 Personal history of malignant neoplasm of cervix uteri; Z87.891 Personal history of nicotine dependence; Z88.1 Allergy status to other antibiotic agents; Z88.5 Allergy status to narcotic agent; Z88.0 Allergy status to penicillin; Z88.8 Allergy status to other drugs, medicaments and biological substances; Z88.6 Allergy status to analgesic agent
CPT/HCPCS: 36415; 70450; 71020; 80053; 80306; 80320; 82550; 82553; 83520; 83735; 84484; 85025; 85610; 85730; 93005; 96360; 96361; 99284

== ENCOUNTER 2016-11-28 17:04 | Emergency (ER) | payer OTHER ==
[2016-11-28 17:38] VITALS: PULSE 89
[2016-11-28] MEDS ORDERED: MORPHINE SULFATE 4 MG/ML SYRINGE IV STA (18:12)
[2016-11-28] MEDS ORDERED: SODIUM CHLORIDE 0.9% 1,000 ML IV STA (18:12)
[2016-11-28] MEDS ORDERED: ONDANSETRON 4 MG/2 ML VIAL IVP STA (18:12)
[2016-11-28] MEDS ORDERED: metroNIDAZOLE-NS PMX 500 MG in SALINE 1 100ML.BAG IVPB STA (18:15)
--- NOTE | 2016-11-28 18:17 | ED ---
General Adult HPI - General Chief complaint: Abdominal Pain Stated complaint: Abd Pain Time Seen by Provider: 11/28/16 18:02 Source: patient, RN notes reviewed Mode of arrival: ambulatory Limitations: no limitations - History of Present Illness Initial comments: 61-year-old female presents to the emergency department with a chief complaint of abdominal pain. Patient states she's had abdominal pain for about one week. Patient states that it has been getting worse. Patient states it's mostly in her left lower quadrant and extends to her back. Patient states any touch or movement causes her abdomen hurt. Patient does admit to a bowel resection in the past due to diverticulitis. Patient states she has had episode of vomiting. Patient denies any fever. Patient states that she was concerned due to her worsening pain so she thought that she should be evaluated. Patient denies any recent fever, chills, shortness of breath, chest pain, back pain, numbness or tingling, dysuria or hematuria, constipation or diarrhea, headaches or visual changes, or any other current symptoms. - Related Data Home Medications Medication Instructions Recorded Confirmed Verapamil [Isoptin] 40 mg PO HS 06/25/16 11/28/16 Brivaracetam [Briviact] 100 mg PO BID 08/12/16 11/28/16 Omeprazole [PriLOSEC] 20 mg PO AC-BRKFST 08/12/16 11/28/16 Pyridoxine [Vitamin B-6] 100 mg PO DAILY 08/12/16 11/28/16 Cyanocobalamin (Vitamin B-12) 1,000 mcg PO DAILY 11/28/16 11/28/16 [Vitamin B-12] Desvenlafaxine Succinate 25 mg PO DAILY 11/28/16 11/28/16 [Desvenlafaxine Succinate ER] Riboflavin [Vitamin B-2] 100 mg PO DAILY 11/28/16 11/28/16 Allergies Allergy/AdvReac Type Severity Reaction Status Date / Time ciprofloxacin [From Cipro] Allergy Rash/Hives Verified 11/28/16 19:07 ciprofloxacin HCl Allergy Rash/Hives Verified 11/28/16 19:07 [From Cipro] clarithromycin [From Biaxin] Allergy Rash/Hives Verified 11/28/16 19:07 hydrocodone bitartrate Allergy Rash/Hives Verified 11/28/16 19:07 [From Vicodin] hydromorphone HCl Allergy Itching Verified 11/28/16 19:07 [From Dilaudid] levofloxacin [From Levaquin] Allergy Rash/Hives Verified 11/28/16 19:07 lorazepam [From Ativan] Allergy SEIZURES Verified 11/28/16 19:07 meloxicam [From Mobic] Allergy Rash/Hives Verified 11/28/16 19:07 oxycodone Allergy Confusion Verified 11/28/16 19:07 Penicillins Allergy Swelling Verified 11/28/16 19:07 IN THROAT promethazine HCl Allergy SEIZURES Verified 11/28/16 19:07 [From Phenergan] propoxyphene napsylate Allergy Rash/Hives Verified 11/28/16 19:07 [From Darvocet-N] tramadol HCl [From Ultram] Allergy SEIZURES Verified 11/28/16 19:07 Review of Systems ROS Statement: Those systems with pertinent positive or pertinent negative responses have been documented in the HPI. ROS Other: All systems not noted in ROS Statement are negative. Past Medical History Past Medical History: Cancer, Hypertension, Seizure Disorder Additional Past Medical History / Comment(s): Last seizure 05/2015, Chronic Pancreatitis. Hx Kidney Stones, Hx Cervical Cancer. HIATAL HERNIA. History of Any Multi-Drug Resistant Organisms: None Reported Past Surgical History: Appendectomy, Bowel Resection, Cholecystectomy, Hysterectomy Additional Past Surgical History / Comment(s): Surgery on RT Salivary Gland. RT ELBOW NERVE SURG. EGD & COLONOSCOPY, JADEN FUNDLAPLASTY 06/2015 Past Anesthesia/Blood Transfusion Reactions: Postoperative Nausea & Vomiting ( PONV) Additional Past Anesthesia/Blood Transfusion Reaction / Comment(s): TAKES LONG TIME TO AWAKEN Past Psychological History: Anxiety, Panic Disorder Smoking Status: Former smoker Past Alcohol Use History: None Reported Past Drug Use History: None Reported - Past Family History Mother Sister(s) Family Medical History: Cancer Additional Family Medical History / Comment(s): COLON CANCER. GRANDFATHER ALSO HAD COLON CANCER Mother Family Medical History: Cancer, Myocardial Infarction ([place]) General Exam Limitations: no limitations General appearance: alert, in no apparent distress Head exam: Present: atraumatic, normocephalic, normal inspection ENT exam: Present: normal exam, mucous membranes moist Neck exam: Present: normal inspection. Absent: tenderness, meningismus, lymphadenopathy Respiratory exam: Present: normal lung sounds bilaterally. Absent: respiratory distress, wheezes, rales, rhonchi, stridor Cardiovascular Exam: Present: regular rate, normal rhythm, normal heart sounds. Absent: systolic murmur, diastolic murmur, rubs, gallop, clicks GI/Abdominal exam: Present: soft, distended, normal bowel sounds. Absent: tenderness, guarding, rebound, rigid Neurological exam: Present: alert, oriented X3 Psychiatric exam: Present: normal affect, normal mood Skin exam: Present: warm, dry, intact, normal color. Absent: rash Course Vital Signs 11/28/16 11/28/16 17:35 22:21 Temperature 99.3 F 97.7 F Pulse Rate 89 89 Respiratory 18 16 Rate Blood Pressure 141/77 152/69 O2 Sat by Pulse 98 96 Oximetry Medical Decision Making - Medical Decision Making 61-year-old female presents to the emergency department with abdominal pain. At this time CAT scan is reviewed that does show 3 mm left ureteral stone. At this time patient's blood work and CAT scan is reviewed which does appear to 3 mm obstructing stone. This time this makes sense for the patient's symptoms. We will start him on nausea pain medication and anti-inflammatories as well as antibiotics for home. We did discuss close follow-up and return parameters all patient's questions. They state Alli they are given plan. They will be discharged. - Lab Data Result diagrams: 11/28/16 18:58 11/28/16 18:58 Lab Results 11/28/16 11/28/16 11/28/16 Range/Units 18:55 18:58 18:58 WBC 9.8 (3.8-10.6) k/uL RBC 4.24 (3.80-5.40) m/uL Hgb 14.1 (11.4-16.0) gm/dL Hct 40.4 (34.0-46.0) % MCV 95.2 (80.0-100.0) fL MCH 33.1 (25.0-35.0) pg MCHC 34.8 (31.0-37.0) g/dL RDW 12.6 (11.5-15.5) % Plt Count 236 (150-450) k/uL Neutrophils % 61 % Lymphocytes % 23 % Monocytes % 5 % Eosinophils % 7 % Basophils % 1 % Neutrophils # 6.0 (1.3-7.7) k/uL Lymphocytes # 2.3 (1.0-4.8) k/uL Monocytes # 0.5 (0-1.0) k/uL Eosinophils # 0.7 (0-0.7) k/uL Basophils # 0.1 (0-0.2) k/uL PT 9.8 (9.0-12.0) sec INR 1.0 (<1.2) APTT 20.3 L (22.0-30.0) sec Sodium (137-145) mmol/L Potassium (3.5-5.1) mmol/L Chloride (98-107) mmol/L Carbon Dioxide (22-30) mmol/L Anion Gap mmol/L BUN (7-17) mg/dL Creatinine (0.52-1.04) mg/dL Est GFR (MDRD) Af Amer (>60 ml/min/1.73 sqM) Est GFR (MDRD) Non-Af (>60 ml/min/1.73 sqM) Glucose (74-99) mg/dL Plasma Lactic Acid Chandu (0.7-2.0) mmol/L Calcium (8.4-10.2) mg/dL Total Bilirubin (0.2-1.3) mg/dL AST (14-36) U/L ALT (9-52) U/L Alkaline Phosphatase (38-126) U/L Total Protein (6.3-8.2) g/dL Albumin (3.5-5.0) g/dL Urine Color Urine Appearance (Clear) Urine pH (5.0-8.0) Ur Specific [place] (1.001-1.035) Urine Protein (Negative) Urine Glucose (UA) (Negative) Urine Ketones (Negative) Urine Blood (Negative) Urine Nitrite (Negative) Urine Bilirubin (Negative) Urine Urobilinogen (<2.0) mg/dL Ur Leukocyte Esterase (Negative) Urine RBC (0-5) /hpf Urine WBC (0-5) /hpf Ur Squamous Epith Cells (0-4) /hpf Urine Mucus (None) /hpf Blood Type B Positive Blood Type Confirm Blood Type Recheck CABO Indicated Antibody Screen NEGATIVE Spec Expiration Date 12/01/2016235411/28/16 11/28/1611/28/17 Range/Units 18:58 18:58 20:46 WBC (3.8-10.6) k/uL RBC (3.80-5.40) m/uL Hgb (11.4-16.0) gm/dL Hct (34.0-46.0) % MCV (80.0-100.0) fL MCH (25.0-35.0) pg MCHC (31.0-37.0) g/dL RDW (11.5-15.5) % Plt Count (150-450) k/uL Neutrophils % % Lymphocytes % % Monocytes % % Eosinophils % % Basophils % % Neutrophils # (1.3-7.7) k/uL Lymphocytes # (1.0-4.8) k/uL Monocytes # (0-1.0) k/uL Eosinophils # (0-0.7) k/uL Basophils # (0-0.2) k/uL PT (9.0-12.0) sec INR (<1.2) APTT (22.0-30.0) sec Sodium 142 (137-145) mmol/L Potassium 3.8 (3.5-5.1) mmol/L Chloride 108 H (98-107) mmol/L Carbon Dioxide 25 (22-30) mmol/L Anion Gap 9 mmol/L BUN 14 (7-17) mg/dL Creatinine 0.62 (0.52-1.04) mg/dL Est GFR (MDRD) Af Amer >60 (>60 ml/min/1.73 sqM) Est GFR (MDRD) Non-Af >60 (>60 ml/min/1.73 sqM) Glucose 86 (74-99) mg/dL Plasma Lactic Acid Chandu 1.4 (0.7-2.0) mmol/L Calcium 9.2 (8.4-10.2) mg/dL Total Bilirubin 0.2 (0.2-1.3) mg/dL AST 27 (14-36) U/L ALT 33 (9-52) U/L Alkaline Phosphatase 118 (38-126) U/L Total Protein 6.3 (6.3-8.2) g/dL Albumin 4.3 (3.5-5.0) g/dL Urine Color Yellow Urine Appearance Cloudy H (Clear) Urine pH 5.5 (5.0-8.0) Ur Specific [place] 1.015 (1.001-1.035) Urine Protein Negative (Negative) Urine Glucose (UA) Negative (Negative) Urine Ketones Negative (Negative) Urine Blood Moderate H (Negative) Urine Nitrite Positive H (Negative) Urine Bilirubin Negative (Negative) Urine Urobilinogen <2.0 (<2.0) mg/dL Ur Leukocyte Esterase Moderate H (Negative) Urine RBC >182 H (0-5) /hpf Urine WBC 41 H (0-5) /hpf Ur Squamous Epith Cells <1 (0-4) /hpf Urine Mucus Rare H (None) /hpf Blood Type Blood Type Confirm Blood Type Recheck Antibody Screen Spec Expiration Date 11/28/16 Range/Units 20:50 WBC (3.8-10.6) k/uL RBC (3.80-5.40) m/uL Hgb (11.4-16.0) gm/dL Hct (34.0-46.0) % MCV (80.0-100.0) fL MCH (25.0-35.0) pg MCHC (31.0-37.0) g/dL RDW (11.5-15.5) % Plt Count (150-450) k/uL Neutrophils % % Lymphocytes % % Monocytes % % Eosinophils % % Basophils % % Neutrophils # (1.3-7.7) k/uL Lymphocytes # (1.0-4.8) k/uL Monocytes # (0-1.0) k/uL Eosinophils # (0-0.7) k/uL Basophils # (0-0.2) k/uL PT (9.0-12.0) sec INR (<1.2) APTT (22.0-30.0) sec Sodium (137-145) mmol/L Potassium (3.5-5.1) mmol/L Chloride (98-107) mmol/L Carbon Dioxide (22-30) mmol/L Anion Gap mmol/L BUN (7-17) mg/dL Creatinine (0.52-1.04) mg/dL Est GFR (MDRD) Af Amer (>60 ml/min/1.73 sqM) Est GFR (MDRD) Non-Af (>60 ml/min/1.73 sqM) Glucose (74-99) mg/dL Plasma Lactic Acid Chandu (0.7-2.0) mmol/L Calcium (8.4-10.2) mg/dL Total Bilirubin (0.2-1.3) mg/dL AST (14-36) U/L ALT (9-52) U/L Alkaline Phosphatase (38-126) U/L Total Protein (6.3-8.2) g/dL Albumin (3.5-5.0) g/dL Urine Color Urine Appearance (Clear) Urine pH (5.0-8.0) Ur Specific [place] (1.001-1.035) Urine Protein (Negative) Urine Glucose (UA) (Negative) Urine Ketones (Negative) Urine Blood (Negative) Urine Nitrite (Negative) Urine Bilirubin (Negative) Urine Urobilinogen (<2.0) mg/dL Ur Leukocyte Esterase (Negative) Urine RBC (0-5) /hpf Urine WBC (0-5) /hpf Ur Squamous Epith Cells (0-4) /hpf Urine Mucus (None) /hpf Blood Type Blood Type Confirm B Positive Blood Type Recheck Antibody Screen Spec Expiration Date - Radiology Data Radiology results: report reviewed, image reviewed Disposition Clinical Impression: Left ureteral calculus, UTI (urinary tract infection) Disposition: HOME SELF-CARE Condition: Stable Instructions: Kidney Stones (ED), Urinary Tract Infection in Women (ED) Additional Instructions: Please use medication as discussed. Please follow up with family doctor if symptoms have not improved over the next two days. Please return to the emergency room if your symptoms increase or worsen or for any other concerns. Referrals: Sharon Paige MD [Primary Care Provider] - 1-2 days
--- NOTE | 2016-11-28 18:58 | CT ---
EXAMINATION TYPE: CT abdomen pelvis wo con DATE OF EXAM: 11/28/2016 COMPARISON: 02/04/2016 HISTORY: Generalized pain with nuasea CT DLP: 347.7 mGycm Automated exposure control for dose reduction was used. TECHNIQUE: Helical acquisition of images was performed from the lung bases through the pelvis. FINDINGS: Lung bases are clear. There is no pleural effusion. Heart size is normal. Liver shows no focal defect. There are clips from cholecystectomy. Bile ducts are not dilated. Spleen and pancreas appear normal. There is no adrenal mass. Kidneys have normal size and contour. Ureters are not dilated. There is mil d fullness of the calyces and pelvis of the left kidney with evidence of a 3 mm calculus in the proxi mal left ureter. There is no retroperitoneal adenopathy. There is no ascites. Bladder distends smoothly. There are num erous diverticula in the colon. There is no sign of diverticulitis. There are surgical clips from col on surgery in the pelvis. I see no bony destructive process. Appendix is not seen. IMPRESSION: SEVERE COLONIC DIVERTICULOSIS WITHOUT SIGN OF DIVERTICULITIS. 3 MM STONE PARTIALLY OBSTRUCTING THE LEFT UPPER COLLECTING SYSTEM IN THE PROXIMAL LEFT URETER. THIS A PPEARS NEW COMPARED TO OLD EXAM.
[2016-11-28 19:19] LABS: Basophils # (A) 0.1 k/uL (0-0.2); Basophils % (A) 1 %; CH 32.2; CHCM 33.9; Eosinophils # (A) 0.7 k/uL (0-0.7); Eosinophils % (A) 7 %; HCT 40.4 % (34.0-46.0); HDW 2.88; HGB 14.1 gm/dL (11.4-16.0); Luc # (Auto) 0.24; Luc % (Auto) 3; Lymphocytes # (A) 2.3 k/uL (1.0-4.8); Lymphocytes % (A) 23 %; MCH 33.1 pg (25.0-35.0); MCHC 34.8 g/dL (31.0-37.0); MCV 95.2 fL (80.0-100.0); Mean Platelet Volume 6.8; Monocytes # (A) 0.5 k/uL (0-1.0); Monocytes % (A) 5 %; Neutrophils % (A) 61 %; RBC 4.24 m/uL (3.80-5.40); RDW 12.6 % (11.5-15.5); WBC 9.8 k/uL (3.8-10.6)
[2016-11-28] MEDS ORDERED: HYDROmorphone 1 MG/ML 1 ML SYRINGE IVP STA (19:27)
[2016-11-28 19:37] LABS: ALT 33 U/L (9-52); AST 27 U/L (14-36); Alkaline Phosphatase 118 U/L (38-126); Anion Gap 9 mmol/L; Blood Urea Nitrogen 14 mg/dL (7-17); Calcium 9.2 mg/dL (8.4-10.2); Carbon Dioxide 25 mmol/L (22-30); Chloride 108 mmol/L (98-107); Glucose 86 mg/dL (74-99); Non-African American GFR(MDRD) >60 (>60 ml/min/1.73 sqM); Potassium 3.8 mmol/L (3.5-5.1); Sodium 142 mmol/L (137-145); Total Bilirubin 0.2 mg/dL (0.2-1.3); Total Protein 6.3 g/dL (6.3-8.2)
[2016-11-28 19:40] LABS: Prothrombin Time 9.8 sec (9.0-12.0)
[2016-11-28] MEDS ORDERED: METOCLOPRAMIDE 5 MG/ML 2 ML VIAL IVP STA (19:53)
[2016-11-28] MEDS ORDERED: KETOROLAC 30 MG/ML 1 ML VIAL IVP STA (19:53)
[2016-11-28 20:08] LABS: Partial Thromboplastin Time 20.3 sec (22.0-30.0)
[2016-11-28] MEDS ORDERED: TAMSULOSIN 0.4 MG CAP.ER.24H PO STA (20:37)
[2016-11-28 21:01] LABS: Appearance,Urine Cloudy (Clear); Bilirubin,Urine Negative (Negative); Glucose,Urine (UA) Negative (Negative); Ketones,Urine Negative (Negative); Leukocyte Esterase,Urine Moderate (Negative); Mucus,Urine Rare /hpf; Nitrite,Urine Positive (Negative); PH, Urine 5.5 (5.0-8.0); Particle Count 2553; Protein,Urine Negative (Negative); RBC,Urine >182 /hpf (0-5); Specific Gravity,Urine 1.015 (1.001-1.035); Squamous Epithelial Cell,Urine <1 /hpf (0-4); UA Billing (MACRO vs. MICRO) MICRO; Urobilinogen,Urine <2.0 mg/dL (<2.0); WBC,Urine 41 /hpf (0-5)
[2016-11-28] MEDS ORDERED: diphenhydrAMINE 50 MG/ML 1 ML VIAL IVP STA (21:15)
[2016-11-28 22:22] VITALS: BP 152/69; RESP 16; TEMP 97.7
== END 2016-11-28 22:21 | disposition home or self-care (01) ==
LOC: EC 17:04
DX: N20.1 Calculus of ureter (principal); N39.0 Urinary tract infection, site not specified; R11.2 Nausea with vomiting, unspecified; I10 Essential (primary) hypertension; G40.909 Epilepsy, unspecified, not intractable, without status epilepticus; F41.9 Anxiety disorder, unspecified; Z85.41 Personal history of malignant neoplasm of cervix uteri; Z87.891 Personal history of nicotine dependence; Z79.899 Other long term (current) drug therapy; Z88.0 Allergy status to penicillin; Z88.1 Allergy status to other antibiotic agents; Z88.5 Allergy status to narcotic agent; Z88.6 Allergy status to analgesic agent; Z88.8 Allergy status to other drugs, medicaments and biological substances
CPT/HCPCS: 36415; 86900; 86901; 80053; 83605; 85025; 85610; 85730; 86850; 81001; 87040; 87086; 74176; 99284; 96365; 96368; 96366; 96375 ×5; J2270; J2765; J2405; J0696; J1885; J1170

== ENCOUNTER → 2016-12-26 | Outpatient (CLI) | payer OTHER ==
--- NOTE | 2016-12-26 19:49 | CT ---
EXAMINATION TYPE: CT angio abdomen pelvis DATE OF EXAM: 12/26/2016 HISTORY: Generalized pain CT DLP: 500.3mGycm Automated Exposure Control for Dose Reduction was Utilized. CONTRAST: CT scan of the abdomen and pelvis is performed with IV Contrast, patient injected with 100 mL of Omni paque 300. COMPARISON: None. FINDINGS: There are 3-D post processed images. Lung bases are clear. There is no pleural effusion. Noncontrast images show mild atheromatous change in abdominal aorta. There is no sign of aneurysm. There are clips at the gastric fundus. There are cl ips from cholecystectomy. There is no sign of a renal calculus. Abdominal aorta has normal diameter. There is no evidence of aneurysm or dissection. There is patency of the common internal and external iliac arteries bilaterally. There is bilateral patency of the re nal arteries. There is patency of the superior mesenteric artery and the celiac artery. I see no evid ence of hemodynamically significant stenosis. Spleen pancreas liver appear normal. Bile ducts are not dilated. There is no retroperitoneal adenopat hy. Kidneys appear normal. There is no hydronephrosis. There is no ascites. IMPRESSION: There is mild atheromatous change in the abdominal aorta. No evidence of aneurysm or diss ection. No evidence of hemodynamic significant stenosis.
== END | disposition home or self-care (01) ==
LOC: RADCTMAIN 18:24
PROVIDERS: ATTEND Surgery Vascular Surgery
DX: I77.4 Celiac artery compression syndrome (principal); I70.0 Atherosclerosis of aorta
CPT/HCPCS: 74174; Q9967

== ENCOUNTER 2017-01-31 13:05 | Emergency (ER) | payer OTHER ==
[2017-01-31] MEDS ORDERED: SODIUM CHLORIDE 0.9% 1,000 ML IV STA (13:50)
[2017-01-31] MEDS ORDERED: KETOROLAC 30 MG/ML 1 ML VIAL IVP STA (13:50)
[2017-01-31] MEDS ORDERED: METOCLOPRAMIDE 5 MG/ML 2 ML VIAL IVP STA (13:50)
--- NOTE | 2017-01-31 13:53 | ED ---
General Adult HPI - General Chief complaint: Abdominal Pain Stated complaint: Abd Pain Time Seen by Provider: 01/31/17 13:45 Source: patient, RN notes reviewed Mode of arrival: ambulatory Limitations: no limitations - History of Present Illness Initial comments: Patient is a pleasant 61-year-old female presenting to the emergency department complaining of abdominal discomfort. Symptoms started a couple of days ago and are worse today. Discomfort is left lower abdomen with radiation towards the back. Patient has had similar symptoms several times previously associated with kidney stones. Patient does have some dysuria. No hematuria. Patient did not have a bowel movement today otherwise no constipation or diarrhea. Patient has nausea without vomiting. No fevers. Discomfort is moderate to severe. - Related Data Home Medications Medication Instructions Recorded Confirmed Verapamil [Isoptin] 40 mg PO TID 06/25/16 01/31/17 Brivaracetam [Briviact] 100 mg PO BID 08/12/16 01/31/17 Desvenlafaxine Succinate 25 mg PO DAILY 11/28/16 01/31/17 [Desvenlafaxine Succinate ER] Hyoscyamine Sulfate [Levbid] 0.375 mg PO Q12H 01/31/17 01/31/17 Previous Rx's Medication Instructions Recorded Ketorolac [Toradol] 10 mg PO Q6HR PRN #15 tab 01/31/17 Metoclopramide HCl [Reglan] 10 mg PO Q6HR PRN #15 tablet 01/31/17 Tamsulosin [Flomax] 0.4 mg PO DAILY #14 cap 01/31/17 Allergies Allergy/AdvReac Type Severity Reaction Status Date / Time ciprofloxacin [From Cipro] Allergy Rash/Hives Verified 01/31/17 13:59 ciprofloxacin HCl Allergy Rash/Hives Verified 01/31/17 13:59 [From Cipro] clarithromycin [From Biaxin] Allergy Rash/Hives Verified 01/31/17 13:59 hydrocodone bitartrate Allergy Rash/Hives Verified 01/31/17 13:59 [From Vicodin] hydromorphone HCl Allergy Itching Verified 01/31/17 13:59 [From Dilaudid] levofloxacin [From Levaquin] Allergy Rash/Hives Verified 01/31/17 13:59 lorazepam [From Ativan] Allergy SEIZURES Verified 01/31/17 13:59 meloxicam [From Mobic] Allergy Rash/Hives Verified 01/31/17 13:59 oxycodone Allergy Confusion Verified 01/31/17 13:59 Penicillins Allergy Swelling Verified 01/31/17 13:59 IN THROAT promethazine HCl Allergy SEIZURES Verified 01/31/17 13:59 [From Phenergan] propoxyphene napsylate Allergy Rash/Hives Verified 01/31/17 13:59 [From Darvocet-N] tramadol HCl [From Ultram] Allergy SEIZURES Verified 01/31/17 13:59 Review of Systems ROS Statement: Those systems with pertinent positive or pertinent negative responses have been documented in the HPI. ROS Other: All systems not noted in ROS Statement are negative. Constitutional: Denies: fever Eyes: Denies: eye pain ENT: Denies: ear pain Respiratory: Denies: cough Cardiovascular: Denies: chest pain Endocrine: Denies: fatigue Gastrointestinal: Reports: abdominal pain, nausea. Denies: vomiting, diarrhea, constipation Genitourinary: Reports: dysuria. Denies: urgency, frequency, hematuria Musculoskeletal: Denies: arthralgia Skin: Denies: rash Neurological: Denies: weakness Past Medical History Past Medical History: Cancer, Hypertension, Seizure Disorder Additional Past Medical History / Comment(s): Last seizure 05/2015, Chronic Pancreatitis. Hx Kidney Stones, Hx Cervical Cancer. HIATAL HERNIA. History of Any Multi-Drug Resistant Organisms: None Reported Past Surgical History: Appendectomy, Bowel Resection, Cholecystectomy, Hysterectomy Additional Past Surgical History / Comment(s): Surgery on RT Salivary Gland. RT ELBOW NERVE SURG. EGD & COLONOSCOPY, JADEN FUNDLAPLASTY 06/2015 Past Anesthesia/Blood Transfusion Reactions: Postoperative Nausea & Vomiting ( PONV) Additional Past Anesthesia/Blood Transfusion Reaction / Comment(s): TAKES LONG TIME TO AWAKEN Past Psychological History: Anxiety, Panic Disorder Smoking Status: Former smoker Past Alcohol Use History: None Reported Past Drug Use History: None Reported - Past Family History Mother Sister(s) Family Medical History: Cancer Additional Family Medical History / Comment(s): COLON CANCER. GRANDFATHER ALSO HAD COLON CANCER Mother Family Medical History: Cancer, Myocardial Infarction ([place]) General Exam Limitations: no limitations General appearance: alert, in no apparent distress Head exam: Present: atraumatic Eye exam: Present: normal appearance, PERRL ENT exam: Present: normal oropharynx Neck exam: Present: normal inspection Respiratory exam: Present: normal lung sounds bilaterally Cardiovascular Exam: Present: regular rate, normal rhythm Expanded Peripheral pulses: 2+: Dorsalis Pedis (R), Dorsalis Pedis (L) GI/Abdominal exam: Present: soft, tenderness (Mild diffuse tenderness, mild to moderate left lower abdomen tenderness), normal bowel sounds. Absent: distended , guarding, rebound, rigid, pulsatile mass Extremities exam: Present: normal inspection Back exam: Present: CVA tenderness (L) (Mild) Neurological exam: Present: alert Psychiatric exam: Present: normal affect, normal mood Skin exam: Present: normal color Course Vital Signs 01/31/17 13:25 Temperature 97.3 F L Pulse Rate 110 H Respiratory 20 Rate Blood Pressure 131/64 O2 Sat by Pulse 98 Oximetry Medical Decision Making - Medical Decision Making Patient reevaluated and resting comfortably in bed. Patient states discomfort has improved however not resolved. Patient does not want further medication and is comfortable with discharge home. Patient was updated on results and need for follow-up. - Lab Data Result diagrams: 01/31/17 14:40 01/31/17 14:40 Lab Results 01/31/17 01/31/17 01/31/17 Range/Units 14:25 14:40 14:40 WBC 10.7 H (3.8-10.6) k/uL RBC 4.25 (3.80-5.40) m/uL Hgb 14.3 (11.4-16.0) gm/dL Hct 40.2 (34.0-46.0) % MCV 94.6 (80.0-100.0) fL MCH 33.5 (25.0-35.0) pg MCHC 35.5 (31.0-37.0) g/dL RDW 12.4 (11.5-15.5) % Plt Count 248 (150-450) k/uL Neutrophils % 75 % Lymphocytes % 14 % Monocytes % 6 % Eosinophils % 3 % Basophils % 0 % Neutrophils # 8.0 H (1.3-7.7) k/uL Lymphocytes # 1.5 (1.0-4.8) k/uL Monocytes # 0.7 (0-1.0) k/uL Eosinophils # 0.3 (0-0.7) k/uL Basophils # 0.0 (0-0.2) k/uL PT 10.0 (9.0-12.0) sec INR 1.0 (<1.2) APTT 21.9 L (22.0-30.0) sec Sodium (137-145) mmol/L Potassium (3.5-5.1) mmol/L Chloride (98-107) mmol/L Carbon Dioxide (22-30) mmol/L Anion Gap mmol/L BUN (7-17) mg/dL Creatinine (0.52-1.04) mg/dL Est GFR (MDRD) Af Amer (>60 ml/min/1.73 sqM) Est GFR (MDRD) Non-Af (>60 ml/min/1.73 sqM) Glucose (74-99) mg/dL Calcium (8.4-10.2) mg/dL Total Bilirubin (0.2-1.3) mg/dL AST (14-36) U/L ALT (9-52) U/L Alkaline Phosphatase (38-126) U/L Total Protein (6.3-8.2) g/dL Albumin (3.5-5.0) g/dL Amylase (30-110) U/L Lipase (23-300) U/L Urine Color Light Yellow Urine Appearance Clear (Clear) Urine pH 5.5 (5.0-8.0) Ur Specific [place] 1.003 (1.001-1.035) Urine Protein Negative (Negative) Urine Glucose (UA) Negative (Negative) Urine Ketones Negative (Negative) Urine Blood Negative (Negative) Urine Nitrite Negative (Negative) Urine Bilirubin Negative (Negative) Urine Urobilinogen <2.0 (<2.0) mg/dL Ur Leukocyte Esterase Negative (Negative) 01/31/17 Range/Units 14:40 WBC (3.8-10.6) k/uL RBC (3.80-5.40) m/uL Hgb (11.4-16.0) gm/dL Hct (34.0-46.0) % MCV (80.0-100.0) fL MCH (25.0-35.0) pg MCHC (31.0-37.0) g/dL RDW (11.5-15.5) % Plt Count (150-450) k/uL Neutrophils % % Lymphocytes % % Monocytes % % Eosinophils % % Basophils % % Neutrophils # (1.3-7.7) k/uL Lymphocytes # (1.0-4.8) k/uL Monocytes # (0-1.0) k/uL Eosinophils # (0-0.7) k/uL Basophils # (0-0.2) k/uL PT (9.0-12.0) sec INR (<1.2) APTT (22.0-30.0) sec Sodium 136 L (137-145) mmol/L Potassium 5.5 H (3.5-5.1) mmol/L Chloride 105 (98-107) mmol/L Carbon Dioxide 19 L (22-30) mmol/L Anion Gap 12 mmol/L BUN 16 (7-17) mg/dL Creatinine 0.93 (0.52-1.04) mg/dL Est GFR (MDRD) Af Amer >60 (>60 ml/min/1.73 sqM) Est GFR (MDRD) Non-Af >60 (>60 ml/min/1.73 sqM) Glucose 77 (74-99) mg/dL Calcium 9.2 (8.4-10.2) mg/dL Total Bilirubin 1.4 H (0.2-1.3) mg/dL AST 84 H (14-36) U/L ALT 38 (9-52) U/L Alkaline Phosphatase 98 (38-126) U/L Total Protein 7.2 (6.3-8.2) g/dL Albumin 4.6 (3.5-5.0) g/dL Amylase 52 (30-110) U/L Lipase 221 (23-300) U/L Urine Color Urine Appearance (Clear) Urine pH (5.0-8.0) Ur Specific [place] (1.001-1.035) Urine Protein (Negative) Urine Glucose (UA) (Negative) Urine Ketones (Negative) Urine Blood (Negative) Urine Nitrite (Negative) Urine Bilirubin (Negative) Urine Urobilinogen (<2.0) mg/dL Ur Leukocyte Esterase (Negative) - Radiology Data Radiology results: image reviewed (Computed tomography scan and pelvis shows 6 mm calculi left UVJ. Associated hydronephrosis and hydroureter.) Disposition Clinical Impression: Ureterolithiasis Disposition: HOME SELF-CARE Condition: Stable Instructions: Kidney Stones (ED) Additional Instructions: Please follow-up with primary care physician and urology in the being the week. Return for fevers, increased pain, vomiting, worsening symptoms or other concerns. Prescriptions: Ketorolac [Toradol] 10 mg PO Q6HR PRN #15 tab PRN Reason: Pain Metoclopramide HCl [Reglan] 10 mg PO Q6HR PRN #15 tablet PRN Reason: Nausea Tamsulosin [Flomax] 0.4 mg PO DAILY #14 cap Referrals: Sharon Paige MD [Primary Care Provider] - 1-2 days Drew Faulkner MD [STAFF PHYSICIAN] - 1-2 days Time of Disposition: 15:35
[2017-01-31 14:32] LABS: Appearance,Urine Clear (Clear); Bilirubin,Urine Negative (Negative); Glucose,Urine (UA) Negative (Negative); Ketones,Urine Negative (Negative); Leukocyte Esterase,Urine Negative (Negative); Nitrite,Urine Negative (Negative); PH, Urine 5.5 (5.0-8.0); Protein,Urine Negative (Negative); Specific Gravity,Urine 1.003 (1.001-1.035); UA Billing (MACRO vs. MICRO) CHEM; Urobilinogen,Urine <2.0 mg/dL (<2.0)
[2017-01-31 14:53] LABS: Basophils % (A) 0 %; CH 33.2; CHCM 35.3; Eosinophils # (A) 0.3 k/uL (0-0.7); Eosinophils % (A) 3 %; HCT 40.2 % (34.0-46.0); HDW 2.71; HGB 14.3 gm/dL (11.4-16.0); Luc # (Auto) 0.17; Luc % (Auto) 2; Lymphocytes # (A) 1.5 k/uL (1.0-4.8); Lymphocytes % (A) 14 %; MCH 33.5 pg (25.0-35.0); MCHC 35.5 g/dL (31.0-37.0); MCV 94.6 fL (80.0-100.0); Mean Platelet Volume 6.5; Monocytes # (A) 0.7 k/uL (0-1.0); Monocytes % (A) 6 %; Neutrophils % (A) 75 %; RBC 4.25 m/uL (3.80-5.40); RDW 12.4 % (11.5-15.5); WBC 10.7 k/uL (3.8-10.6); WBC (Perox) 11.37
[2017-01-31 15:09] LABS: ALT 38 U/L (9-52); AST 84 U/L (14-36); Alkaline Phosphatase 98 U/L (38-126); Amylase 52 U/L (30-110); Anion Gap 12 mmol/L; Blood Urea Nitrogen 16 mg/dL (7-17); Calcium 9.2 mg/dL (8.4-10.2); Carbon Dioxide 19 mmol/L (22-30); Chloride 105 mmol/L (98-107); Glucose 77 mg/dL (74-99); Non-African American GFR(MDRD) >60 (>60 ml/min/1.73 sqM); Sodium 136 mmol/L (137-145); Total Bilirubin 1.4 mg/dL (0.2-1.3); Total Protein 7.2 g/dL (6.3-8.2)
[2017-01-31 15:10] LABS: Potassium 5.5 mmol/L (3.5-5.1)
--- NOTE | 2017-01-31 15:10 | CT ---
EXAMINATION TYPE: CT abdomen pelvis wo con DATE OF EXAM: 01/31/2017 COMPARISON: 11/28/2016 HISTORY: Left sided pain CT DLP: 301.2 mGycm Automated exposure control for dose reduction was used. TECHNIQUE: Helical acquisition of images was performed from the lung bases through the pelvis. FINDINGS: Lung bases are clear. There is no pleural effusion. Heart size is normal. Liver spleen pancreas appear normal. There are clips from cholecystectomy. Bile ducts are not dilated . There is a small hiatal hernia. There is no adrenal mass. There is mild left-sided hydronephrosis and hydroureter. There is a 6 mm ca lculus at the left ureterovesical junction. Bladder distends smoothly. I see no intestinal wall thickening. There are no dilated loops. There is no sign of a pelvic mass. T here is no ascites. Appendix is not seen. There is no sign of appendicitis. There is no sign of retro peritoneal adenopathy. I see no bony destructive process. IMPRESSION: SMALL CALCULUS AT THE LEFT URETEROVESICAL JUNCTION WITH LEFT-SIDED HYDRONEPHROSIS AND HYDROURETER. TH ERE IS MIGRATION OF THE CALCULUS FROM THE PROXIMAL LEFT URETER COMPARED TO LAST EXAM. SMALL HIATAL HERNIA.
[2017-01-31 15:11] LABS: Partial Thromboplastin Time 21.9 sec (22.0-30.0)
[2017-01-31 15:51] VITALS: BP 133/66; PULSE 100; RESP 18; TEMP 97.9
== END 2017-01-31 15:51 | disposition home or self-care (01) ==
LOC: EC 13:05
DX: N20.1 Calculus of ureter (principal); E78.5 Hyperlipidemia, unspecified; G40.909 Epilepsy, unspecified, not intractable, without status epilepticus; F41.9 Anxiety disorder, unspecified; Z85.41 Personal history of malignant neoplasm of cervix uteri; Z87.442 Personal history of urinary calculi; Z87.891 Personal history of nicotine dependence; Z79.899 Other long term (current) drug therapy; Z88.1 Allergy status to other antibiotic agents; Z88.5 Allergy status to narcotic agent; Z88.8 Allergy status to other drugs, medicaments and biological substances; Z88.0 Allergy status to penicillin; Z90.49 Acquired absence of other specified parts of digestive tract; Z90.710 Acquired absence of both cervix and uterus
CPT/HCPCS: 36415; 80053; 82150; 83690; 85025; 85610; 85730; 81003; 74176; 99284; 96374; 96375; 96361; J2765; J1885

== ENCOUNTER → 2017-02-04 | Outpatient (CLI) | payer OTHER ==
--- NOTE | 2017-02-04 11:54 | XR ---
EXAMINATION TYPE: XR abdomen 1V DATE OF EXAM: 02/04/2017 COMPARISON: 11/28/2016, 01/31/2017 HISTORY: Follow-up renal stones. TECHNIQUE: One view abdominal series FINDINGS: The osseous structures are intact. The bowel gas pattern is nonspecific. There is a calcification the left pelvis measuring 3 mm. Calcification on the right measuring 4 mm li abram is vascular. Previous surgery overlying the pubic rami. Previous surgery right upper quadrant ab domen. IMPRESSION: 1. 2 to 3 mm distal pelvic calcification on the left may correspond to the CT abnormality.
== END ==
LOC: RADXRMAIN 11:17
PROVIDERS: ATTEND Urology
DX: N20.1 Calculus of ureter (principal)
CPT/HCPCS: 74000

== ENCOUNTER 2017-02-13 14:37 | Observation (INO) | payer OTHER ==
[2017-02-13] MEDS ORDERED: ONDANSETRON 4 MG/2 ML VIAL IVP STA (15:47)
[2017-02-13] MEDS ORDERED: PANTOPRAZOLE 40 MG/10 ML VIAL IVP STA (15:47)
[2017-02-13] MEDS ORDERED: SODIUM CHLORIDE 0.9% 1,000 ML IV STA ×3 (15:47→18:42)
[2017-02-13] MEDS ORDERED: MORPHINE SULFATE 4 MG/ML SYRINGE IVP STA (15:48)
[2017-02-13] MEDS ORDERED: diphenhydrAMINE 50 MG/ML 1 ML VIAL IVP STA (16:02)
[2017-02-13] MEDS ORDERED: HYDROmorphone 1 MG/ML 1 ML SYRINGE IVP STA (16:02)
--- NOTE | 2017-02-13 16:41 | ED ---
General Adult HPI - General Chief complaint: Abdominal Pain Stated complaint: abdominal pain Source: patient, RN notes reviewed, old records reviewed Mode of arrival: ambulatory Limitations: no limitations - History of Present Illness Initial comments: This is a 61-year-old female to the ER for evaluation of severe and intractable abdominal pain. Patient takes Bentyl at home for irritable bowel but no pain control for abdominal pain. Patient has significant history of GI disease noticed. Multiple surgeries. Patient states her pain is been going on for about a year but is episodic. This time patient states her abdomen is severely distended with nausea no vomiting. No recent fevers or family history. Patient did have a bowel movement yesterday that was normal. Patient states her pain is continuing to get worse since the morning to the point where she can 't bear it any longer. - Related Data Home Medications Medication Instructions Recorded Confirmed Verapamil [Isoptin] 40 mg PO HS 06/25/16 02/13/17 Brivaracetam [Briviact] 100 mg PO BID 08/12/16 02/13/17 Desvenlafaxine Succinate 25 mg PO HS 11/28/16 02/13/17 [Desvenlafaxine Succinate ER] Dicyclomine [Bentyl] 20 mg PO BID 02/13/17 02/13/17 Omeprazole [PriLOSEC] 20 mg PO AC-BRKFST 02/13/17 02/13/17 Allergies Allergy/AdvReac Type Severity Reaction Status Date / Time ciprofloxacin [From Cipro] Allergy Rash/Hives Verified 02/13/17 15:01 ciprofloxacin HCl Allergy Rash/Hives Verified 02/13/17 15:01 [From Cipro] clarithromycin [From Biaxin] Allergy Rash/Hives Verified 02/13/17 15:01 hydrocodone bitartrate Allergy Rash/Hives Verified 02/13/17 15:01 [From Vicodin] hydromorphone HCl Allergy Itching Verified 02/13/17 15:01 [From Dilaudid] levofloxacin [From Levaquin] Allergy Rash/Hives Verified 02/13/17 15:01 lorazepam [From Ativan] Allergy SEIZURES Verified 02/13/17 15:01 meloxicam [From Mobic] Allergy Rash/Hives Verified 02/13/17 15:01 oxycodone Allergy Confusion Verified 10/06/17 15:01 Penicillins Allergy Swelling Verified 02/13/17 15:01 IN THROAT promethazine HCl Allergy SEIZURES Verified 02/13/17 15:01 [From Phenergan] propoxyphene napsylate Allergy Rash/Hives Verified 02/13/17 15:01 [From Darvocet-N] tramadol HCl [From Ultram] Allergy SEIZURES Verified 02/13/17 15:01 Review of Systems ROS Statement: Those systems with pertinent positive or pertinent negative responses have been documented in the HPI. ROS Other: All systems not noted in ROS Statement are negative. Past Medical History Past Medical History: Cancer, Hypertension, Seizure Disorder Additional Past Medical History / Comment(s): Last seizure 05/2015, Chronic Pancreatitis. Hx Kidney Stones, Hx Cervical Cancer. HIATAL HERNIA. History of Any Multi-Drug Resistant Organisms: None Reported Past Surgical History: Appendectomy, Bowel Resection, Cholecystectomy, Hysterectomy Additional Past Surgical History / Comment(s): Surgery on RT Salivary Gland. RT ELBOW NERVE SURG. EGD & COLONOSCOPY, JADEN FUNDLAPLASTY 06/2015 Past Anesthesia/Blood Transfusion Reactions: Postoperative Nausea & Vomiting ( PONV) Additional Past Anesthesia/Blood Transfusion Reaction / Comment(s): TAKES LONG TIME TO AWAKEN Past Psychological History: Anxiety, Panic Disorder Smoking Status: Former smoker Past Alcohol Use History: None Reported Past Drug Use History: None Reported - Past Family History Mother Sister(s) Family Medical History: Cancer Additional Family Medical History / Comment(s): COLON CANCER. GRANDFATHER ALSO HAD COLON CANCER Mother Family Medical History: Cancer, Myocardial Infarction ([place]) General Exam Limitations: no limitations General appearance: alert, in no apparent distress, anxious, obese Head exam: Present: atraumatic, normocephalic, normal inspection Eye exam: Present: normal appearance, PERRL, EOMI. Absent: scleral icterus, conjunctival injection, periorbital swelling ENT exam: Present: normal exam, mucous membranes moist Neck exam: Present: normal inspection. Absent: tenderness, meningismus, lymphadenopathy Respiratory exam: Present: normal lung sounds bilaterally. Absent: respiratory distress, wheezes, rales, rhonchi, stridor Cardiovascular Exam: Present: regular rate, normal rhythm, normal heart sounds. Absent: systolic murmur, diastolic murmur, rubs, gallop, clicks GI/Abdominal exam: Present: soft, distended, tenderness, guarding, normal bowel sounds. Absent: rebound, rigid Extremities exam: Present: normal inspection, full ROM, normal capillary refill. Absent: tenderness, pedal edema, joint swelling, calf tenderness Back exam: Present: normal inspection Neurological exam: Present: alert, oriented X3, CN II-XII intact Psychiatric exam: Present: normal affect, normal mood Skin exam: Present: warm, dry, intact, normal color. Absent: rash Course Vital Signs 02/13/17 02/13/17 14:43 18:07 Temperature 98.9 F Pulse Rate 98 102 H Respiratory 18 18 Rate Blood Pressure 149/79 166/85 O2 Sat by Pulse 98 100 Oximetry - Reevaluation(s) Reevaluation #1: 02/13/17 18:46 Patient is able to have adequate pain control at this time, resting Reevaluation #2: 02/13/17 18:46 Medical record is consistent with severe abdominal disease and issues. Multiple imaging studies. Medical Decision Making - Medical Decision Making 61 female the ER for evaluation regarding intractable abdominal pain. Patient has severe epigastric abdominal pain with abdominal distention. Patient will be admitted for pain control, nothing by mouth, GI as well as surgical evaluation. - Lab Data Result diagrams: 02/13/17 17:04 02/13/17 17:04 Lab Results 02/13/17 02/13/17 02/13/17 Range/Units 17:04 17:04 17:04 WBC 8.9 (3.8-10.6) k/uL RBC 4.19 (3.80-5.40) m/uL Hgb 13.9 (11.4-16.0) gm/dL Hct 41.1 (34.0-46.0) % MCV 97.9 (80.0-100.0) fL MCH 33.1 (25.0-35.0) pg MCHC 33.8 (31.0-37.0) g/dL RDW 13.2 (11.5-15.5) % Plt Count 262 (150-450) k/uL Neutrophils % 66 % Lymphocytes % 23 % Monocytes % 5 % Eosinophils % 4 % Basophils % 1 % Neutrophils # 5.8 (1.3-7.7) k/uL Lymphocytes # 2.1 (1.0-4.8) k/uL Monocytes # 0.4 (0-1.0) k/uL Eosinophils # 0.4 (0-0.7) k/uL Basophils # 0.1 (0-0.2) k/uL PT (9.0-12.0) sec INR (<1.2) APTT (22.0-30.0) sec Sodium 142 (137-145) mmol/L Potassium 3.6 (3.5-5.1) mmol/L Chloride 109 H (98-107) mmol/L Carbon Dioxide 23 (22-30) mmol/L Anion Gap 10 mmol/L BUN 10 (7-17) mg/dL Creatinine 0.57 (0.52-1.04) mg/dL Est GFR (MDRD) Af Amer >60 (>60 ml/min/1.73 sqM) Est GFR (MDRD) Non-Af >60 (>60 ml/min/1.73 sqM) Glucose 89 (74-99) mg/dL Plasma Lactic Acid [place] (0.7-2.0) mmol/L Calcium 9.3 (8.4-10.2) mg/dL Total Bilirubin 0.2 (0.2-1.3) mg/dL AST 25 (14-36) U/L ALT 39 (9-52) U/L Alkaline Phosphatase 99 (38-126) U/L Total Creatine Kinase 38 (30-135) U/L CK-MB (CK-2) 0.5 (0.0-2.4) ng/mL CK-MB (CK-2) Rel Index 1.3 Troponin I <0.012 (0.000-0.034) ng/mL Total Protein 6.5 (6.3-8.2) g/dL Albumin 4.3 (3.5-5.0) g/dL Amylase 63 (30-110) U/L Lipase 449 H (23-300) U/L 02/13/17 02/13/17 Range/Units 17:04 17:04 WBC (3.8-10.6) k/uL RBC (3.80-5.40) m/uL Hgb (11.4-16.0) gm/dL Hct (34.0-46.0) % MCV (80.0-100.0) fL MCH (25.0-35.0) pg MCHC (31.0-37.0) g/dL RDW (11.5-15.5) % Plt Count (150-450) k/uL Neutrophils % % Lymphocytes % % Monocytes % % Eosinophils % % Basophils % % Neutrophils # (1.3-7.7) k/uL Lymphocytes # (1.0-4.8) k/uL Monocytes # (0-1.0) k/uL Eosinophils # (0-0.7) k/uL Basophils # (0-0.2) k/uL PT 10.1 (9.0-12.0) sec INR 1.0 (<1.2) APTT 21.2 L (22.0-30.0) sec Sodium (137-145) mmol/L Potassium (3.5-5.1) mmol/L Chloride (98-107) mmol/L Carbon Dioxide (22-30) mmol/L Anion Gap mmol/L BUN (7-17) mg/dL Creatinine (0.52-1.04) mg/dL Est GFR (MDRD) Af Amer (>60 ml/min/1.73 sqM) Est GFR (MDRD) Non-Af (>60 ml/min/1.73 sqM) Glucose (74-99) mg/dL Plasma Lactic Acid [place] 0.9 (0.7-2.0) mmol/L Calcium (8.4-10.2) mg/dL Total Bilirubin (0.2-1.3) mg/dL AST (14-36) U/L ALT (9-52) U/L Alkaline Phosphatase (38-126) U/L Total Creatine Kinase (30-135) U/L CK-MB (CK-2) (0.0-2.4) ng/mL CK-MB (CK-2) Rel Index Troponin I (0.000-0.034) ng/mL Total Protein (6.3-8.2) g/dL Albumin (3.5-5.0) g/dL Amylase (30-110) U/L Lipase (23-300) U/L - Radiology Data Radiology results: report reviewed (X-ray abdominal series is negative for acute disease), image reviewed Disposition Clinical Impression: Intractable abdominal pain, Pancreatitis Disposition: ADMITTED IP TO THIS [facility] Condition: Good Referrals: Sharon Paige MD [Primary Care Provider] - 1-2 days
[2017-02-13 17:21] LABS: Basophils # (A) 0.1 k/uL (0-0.2); Basophils % (A) 1 %; CH 34.3; CHCM 35.2; Eosinophils # (A) 0.4 k/uL (0-0.7); Eosinophils % (A) 4 %; HCT 41.1 % (34.0-46.0); HDW 2.81; HGB 13.9 gm/dL (11.4-16.0); Luc # (Auto) 0.13; Luc % (Auto) 2; Lymphocytes # (A) 2.1 k/uL (1.0-4.8); Lymphocytes % (A) 23 %; MCH 33.1 pg (25.0-35.0); MCHC 33.8 g/dL (31.0-37.0); MCV 97.9 fL (80.0-100.0); Monocytes # (A) 0.4 k/uL (0-1.0); Monocytes % (A) 5 %; Neutrophils # (A) 5.8 k/uL (1.3-7.7); Neutrophils % (A) 66 %; RBC 4.19 m/uL (3.80-5.40); RDW 13.2 % (11.5-15.5); WBC 8.9 k/uL (3.8-10.6); WBC (Perox) 9.25
[2017-02-13 17:29] LABS: ALT 39 U/L (9-52); AST 25 U/L (14-36); Alkaline Phosphatase 99 U/L (38-126); Amylase 63 U/L (30-110); Anion Gap 10 mmol/L; Blood Urea Nitrogen 10 mg/dL (7-17); Calcium 9.3 mg/dL (8.4-10.2); Carbon Dioxide 23 mmol/L (22-30); Chloride 109 mmol/L (98-107); Glucose 89 mg/dL (74-99); Non-African American GFR(MDRD) >60 (>60 ml/min/1.73 sqM); Potassium 3.6 mmol/L (3.5-5.1); Sodium 142 mmol/L (137-145); Total Bilirubin 0.2 mg/dL (0.2-1.3); Total Protein 6.5 g/dL (6.3-8.2)
[2017-02-13 17:35] LABS: Creatine Kinase 38 U/L (30-135)
[2017-02-13 17:46] LABS: Prothrombin Time 10.1 sec (9.0-12.0)
[2017-02-13 17:48] LABS: Creatine Kinase MB 0.5 ng/mL (0.0-2.4); Troponin I <0.012 ng/mL (0.000-0.034)
[2017-02-13 17:51] LABS: Partial Thromboplastin Time 21.2 sec (22.0-30.0)
--- NOTE | 2017-02-13 18:19 | XR ---
EXAMINATION TYPE: XR abdomen acute w cxr DATE OF EXAM: 02/13/2017 COMPARISON: 01/28/1717 HISTORY: Abdominal pain TECHNIQUE: Supine, upright, and left side down lateral decubitus views of the abdomen are obtained. FINDINGS: Heart and mediastinum are normal. Lungs are clear. There are clips from cholecystectomy. There is no pleural effusion. Bowel gas pattern is normal. There is no sign of intestinal obstruction or pneumope ritoneum. Fecal pattern is normal. There are no pathologic calcifications over the kidneys.. IMPRESSION: Normal chest. Nonacute abdomen. No adverse change in the abdomen compared to old exam.
[2017-02-13] MEDS ORDERED: SODIUM CHLORIDE 0.9% 1,000 ML IV ONE (18:42)
[2017-02-13] MEDS: MORPHINE SULFATE 4 MG/ML SYRINGE IVP PRN ×2 (19:19→23:24)
[2017-02-13 21:04] VITALS: BMI 25.4
[2017-02-13] MEDS: ONDANSETRON 4 MG/2 ML VIAL IVP PRN (21:23)
[2017-02-13] MEDS: DICYCLOMINE 20 MG TAB PO SCH (22:51)
[2017-02-13] MEDS: VERAPAMIL 40 MG TAB PO SCH (22:51)
[2017-02-13] MEDS: diphenhydrAMINE 50 MG/ML 1 ML VIAL IVP PRN (23:24)
[2017-02-14] MEDS: ONDANSETRON 4 MG/2 ML VIAL IVP PRN ×4 (03:45→21:57)
[2017-02-14] MEDS: MORPHINE SULFATE 4 MG/ML SYRINGE IVP PRN ×3 (03:48→15:31)
[2017-02-14] MEDS: diphenhydrAMINE 50 MG/ML 1 ML VIAL IVP PRN ×3 (08:50→22:02)
[2017-02-14] MEDS: BRIVARACETAM 100 MG PO SCH ×2 (08:52→21:25)
[2017-02-14] MEDS: DICYCLOMINE 20 MG TAB PO SCH ×2 (08:53→21:25)
[2017-02-14] MEDS: PANTOPRAZOLE 40 MG/10 ML VIAL IVP SCH (11:37)
--- NOTE | 2017-02-14 15:21 | P.GSCN ---
History of Present Illness Consult date: 02/14/17 Reason for Consult: Pancreatitis History of present illness: This 61-year-old female who has had multiple episodes of pancreatitis in the past. She's also had multiple abdominal surgeries including a hiatal hernia repair. She states that she began having abdominal pain which was worsening over the last several days in her midepigastric area. She admits to some nausea. Denies any diarrhea. She denies any fevers or chills. She's been able to tolerate some liquids. She denies any alcohol use. She is previously had cholecystectomy. Review of Systems All systems: negative (Noted in history of present illness) Past Medical History Past Medical History: Cancer, Hypertension, Seizure Disorder Additional Past Medical History / Comment(s): Last seizure 10/2016, Chronic Pancreatitis. Hx Kidney Stones, Hx Cervical Cancer. HIATAL HERNIA. History of Any Multi-Drug Resistant Organisms: None Reported Past Surgical History: Appendectomy, Bowel Resection, Cholecystectomy, Hysterectomy Additional Past Surgical History / Comment(s): Surgery on RT Salivary Gland. RT ELBOW NERVE SURG. EGD & COLONOSCOPY, JADEN FUNDLAPLASTY 06/2015, cervicle cancer surgery 1988 Past Anesthesia/Blood Transfusion Reactions: Postoperative Nausea & Vomiting ( PONV) Additional Past Anesthesia/Blood Transfusion Reaction / Comm: TAKES LONG TIME TO AWAKEN Past Psychological History: Anxiety, Panic Disorder Additional Psychological History / Comment(s): PT STATED SHE SEE'S A THERAPIST. CURRENTLY DENIES ANY THOUGHTS OF HARMING SELF NO HOPELESSNESS FELINGS. Smoking Status: Former smoker Past Alcohol Use History: None Reported Additional Past Alcohol Use History / Comment(s): SMOKED 20 YEARS, 5 PPD. QUIT 1998 Past Drug Use History: None Reported - Past Family History Mother Sister(s) Family Medical History: Cancer Additional Family Medical History / Comment(s): COLON CANCER. GRANDFATHER ALSO HAD COLON CANCER Mother Family Medical History: Cancer, Myocardial Infarction ([place]) Medications and Allergies Home Medications Medication Instructions Recorded Confirmed Type Verapamil [Isoptin] 40 mg PO HS 06/25/16 02/13/17 History Brivaracetam [Briviact] 100 mg PO BID 08/12/16 02/13/17 History Desvenlafaxine Succinate 25 mg PO HS 11/28/16 02/13/17 History [Desvenlafaxine Succinate ER] Dicyclomine [Bentyl] 20 mg PO BID 10/06/17 10/06/17 History Omeprazole [PriLOSEC] 20 mg PO AC-BRKFST 02/13/17 02/13/17 History Allergies Allergy/AdvReac Type Severity Reaction Status Date / Time ciprofloxacin [From Cipro] Allergy Rash/Hives Verified 02/13/17 21:06 ciprofloxacin HCl Allergy Rash/Hives Verified 02/13/17 21:06 [From Cipro] clarithromycin [From Biaxin] Allergy Rash/Hives Verified 02/13/17 21:06 hydrocodone bitartrate Allergy Rash/Hives Verified 02/13/17 21:06 [From Vicodin] hydromorphone HCl Allergy Itching Verified 02/13/17 21:06 [From Dilaudid] levofloxacin [From Levaquin] Allergy Rash/Hives Verified 02/13/17 21:06 lorazepam [From Ativan] Allergy SEIZURES Verified 02/13/17 21:06 meloxicam [From Mobic] Allergy Rash/Hives Verified 02/13/17 21:06 oxycodone Allergy Confusion Verified 02/13/17 21:06 Penicillins Allergy Swelling Verified 02/13/17 21:06 IN THROAT promethazine HCl Allergy SEIZURES Verified 02/13/17 21:06 [From Phenergan] propoxyphene napsylate Allergy Rash/Hives Verified 02/13/17 21:06 [From Darvocet-N] tramadol HCl [From Ultram] Allergy SEIZURES Verified 02/13/17 21:06 Surgical - Exam Osteopathic Statement: *. No significant issues noted on an osteopathic structural exam other than those noted in the History and Physical/Consult. Vital Signs Temp Pulse Resp BP Pulse Ox 98.9 F 98 18 149/79 98 02/13/17 14:43 02/13/17 14:43 02/13/17 14:43 02/13/17 14:43 02/13/17 14:43 - General well developed, well nourished, no distress - Eyes PERRL - ENT normal mucosa - Neck trachea midline - Respiratory normal expansion, normal respiratory effort - Cardiovascular Rhythm: regular - Abdomen Soft mild midepigastric tenderness to palpation nondistended no rebound rigidity or guarding - Neurologic normal coordination, normal sensation - Psychiatric oriented to time, oriented to person, oriented to place Results - Labs 02/13/17 17:04 02/13/17 17:04 Abnormal Lab Results - Last 24 Hours (Table) 02/13/17 02/13/17 Range/Units 17:04 17:04 APTT 21.2 L (22.0-30.0) sec Chloride 109 H (98-107) mmol/L Lipase 449 H (23-300) U/L Diabetes panel 02/13/17 Range/Units 17:04 Sodium 142 (137-145) mmol/L Potassium 3.6 (3.5-5.1) mmol/L Chloride 109 H (98-107) mmol/L Carbon Dioxide 23 (22-30) mmol/L BUN 10 (7-17) mg/dL Creatinine 0.57 (0.52-1.04) mg/dL Glucose 89 (74-99) mg/dL Calcium 9.3 (8.4-10.2) mg/dL AST 25 (14-36) U/L ALT 39 (9-52) U/L Alkaline Phosphatase 99 (38-126) U/L Total Protein 6.5 (6.3-8.2) g/dL Albumin 4.3 (3.5-5.0) g/dL Calcium panel 02/13/17 Range/Units 17:04 Calcium 9.3 (8.4-10.2) mg/dL Albumin 4.3 (3.5-5.0) g/dL Pituitary panel 02/13/17 Range/Units 17:04 Sodium 142 (137-145) mmol/L Potassium 3.6 (3.5-5.1) mmol/L Chloride 109 H (98-107) mmol/L Carbon Dioxide 23 (22-30) mmol/L BUN 10 (7-17) mg/dL Creatinine 0.57 (0.52-1.04) mg/dL Glucose 89 (74-99) mg/dL Calcium 9.3 (8.4-10.2) mg/dL Adrenal panel 02/13/17 Range/Units 17:04 Sodium 142 (137-145) mmol/L Potassium 3.6 (3.5-5.1) mmol/L Chloride 109 H (98-107) mmol/L Carbon Dioxide 23 (22-30) mmol/L BUN 10 (7-17) mg/dL Creatinine 0.57 (0.52-1.04) mg/dL Glucose 89 (74-99) mg/dL Calcium 9.3 (8.4-10.2) mg/dL Total Bilirubin 0.2 (0.2-1.3) mg/dL AST 25 (14-36) U/L ALT 39 (9-52) U/L Alkaline Phosphatase 99 (38-126) U/L Total Protein 6.5 (6.3-8.2) g/dL Albumin 4.3 (3.5-5.0) g/dL Assessment and Plan (1) Pancreatitis Status: Acute Plan: Acute pancreatitis etiology unknown at this time. Suspect underlying chronic pancreatitis. 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 If she begins to feel better she may start clear liquid diet. No acute surgical intervention planned at this time
--- NOTE | 2017-02-14 17:49 | P.HPIM ---
History of Present Illness H&P Date: 02/14/17 This is a 60-year-old female one of Dr. Paige with a previous medical history significant for hypertension and hypertensive cardiovascular disease, seizure disorder, hyperlipidemia, GERD, headache, osteoarthritis, history of diverticulitis in the past status post partial colectomy, patient has been struggling with significant abdominal pain over the last year or so initially she thought it was due to her hiatal hernia for which she underwent had a hernia repair that was done in April 2016 without any relief of her pain apparently the patient was seen by the histology supposed to be transferred to the [facility] as an outpatient to follow-up with one of the vascular surgery for possible superior mesenteric artery stenting. Apparently the patient came to the ER with increased bowel pain associated with increased nausea and vomiting not able to get anything out except for dry heaves associated with significant diarrhea as well as she has no hematemesis or hematochezia she has no black tarry stool, she was seen in the ER she was found to have an elevated lipase of 449 because of that she he was felt that the patient needed to be admitted to the hospital for evaluation she was seen in consultation by general surgery she was started on clear liquid diet, patient continues to have significant pain in the midepigastric area radiating to the back she has no evidence of any surgical abdomen at this point patient will be kept in the hospital for another 24 hours she was placed on clear liquid diet and hopefully she will be discharged home in the next 24 hours. I spoke with the patient in length about the possibility of abdominal angina and she is in agreement to go and follow up with her primary care physician and keep the planned to go to the [facility] for possible angiogram of the celiac plexus for evaluation of possible superior mesenteric artery stenosis. Review of Systems Constitutional: Reports anorexia, Reports chronic pain, Reports lethargy, Reports malaise, Reports weakness, Denies weight gain, Denies weight loss Eyes: denies blurred vision, denies bulging eye, denies decreased vision, denies diplopia Ears: deny: decreased hearing Ears, nose, mouth and throat: Denies dysphagia, Denies neck lump, Denies sore throat, Denies vertigo Breasts: absent: change in shape Cardiovascular: Denies chest pain, Denies decreased exercise tolerance, Denies dyspnea on exertion, Denies high blood pressure, Denies rapid heart beat, Denies shortness of breath, Denies syncope Respiratory: Denies cough with sputum, Denies home oxygen, Denies sleep apnea, Denies snoring, Denies wheezing Gastrointestinal: Reports abdominal pain, Reports bloating, Reports diarrhea, Reports dyspepsia, Reports heartburn, Reports loss of appetite, Reports nausea, Reports vomiting, Denies melena Genitourinary: Denies dysuria, Denies hematuria Menstruation: Reports postmenopausal Musculoskeletal: Denies myalgias Musculoskeletal: absent: ankle pain, ankle stiffness, ankle swelling, elbow pain , elbow stiffness, elbow swelling, foot pain, foot stiffness, foot swelling, hand pain, hand stiffness, hand swelling, hip pain, hip stiffness, hip swelling , knee pain, knee stiffness, knee swelling, shoulder pain, shoulder stiffness, shoulder swelling, wrist pain, wrist stiffness, wrist swelling Integumentary: Denies pruritus, Denies rash Neurological: Reports seizures, Denies convulsions, Denies numbness, Denies weakness Psychiatric: Denies anxiety, Denies depression Endocrine: Denies fatigue, Denies weight change Past Medical History Past Medical History: Cancer, Hypertension, Seizure Disorder Additional Past Medical History / Comment(s): Last seizure 10/2016, Chronic Pancreatitis. Hx Kidney Stones, Hx Cervical Cancer. HIATAL HERNIA. History of Any Multi-Drug Resistant Organisms: None Reported Past Surgical History: Appendectomy, Bowel Resection, Cholecystectomy, Hysterectomy Additional Past Surgical History / Comment(s): Surgery on RT Salivary Gland. RT ELBOW NERVE SURG. EGD & COLONOSCOPY, JADEN FUNDLAPLASTY 06/2015, cervicle cancer surgery 1988 Past Anesthesia/Blood Transfusion Reactions: Postoperative Nausea & Vomiting ( PONV) Additional Past Anesthesia/Blood Transfusion Reaction / Comment(s): TAKES LONG TIME TO AWAKEN Past Psychological History: Anxiety, Panic Disorder Additional Psychological History / Comment(s): PT STATED SHE SEE'S A THERAPIST. CURRENTLY DENIES ANY THOUGHTS OF HARMING SELF NO HOPELESSNESS FELINGS. Smoking Status: Former smoker Past Alcohol Use History: None Reported Additional Past Alcohol Use History / Comment(s): SMOKED 20 YEARS, 5 PPD. QUIT 1998 Past Drug Use History: None Reported - Past Family History Mother Sister(s) Family Medical History: Cancer Additional Family Medical History / Comment(s): COLON CANCER. GRANDFATHER ALSO HAD COLON CANCER Mother Family Medical History: Cancer (mother at age of 62 from colon cancer she also had history of [place] and hypertension.), Myocardial Infarction ([place]) Father Family Medical History: Hypertension (father at age of 88 from hypertension.) Brother(s) Family Medical History: No Reported History (patient had 3 brothers one of them from motor vehicle accident.) Sister(s) Family Medical History: Cancer (patient has one sister who from head and neck cancer.) Daughter(s) Family Medical History: No Reported History (patient has one daughter biologic no major medical problems) Son(s) Family Medical History: No Reported History (patient has one biologic son no major medical problem and 3 adopted sons.) Medications and Allergies Home Medications Medication Instructions Recorded Confirmed Type Verapamil [Isoptin] 40 mg PO HS 06/25/16 02/13/17 History Brivaracetam [Briviact] 100 mg PO BID 08/12/16 02/13/17 History Desvenlafaxine Succinate 25 mg PO HS 11/28/16 02/13/17 History [Desvenlafaxine Succinate ER] Dicyclomine [Bentyl] 20 mg PO BID 02/13/17 02/13/17 History Omeprazole [PriLOSEC] 20 mg PO AC-BRKFST 02/13/17 02/13/17 History Allergies Allergy/AdvReac Type Severity Reaction Status Date / Time ciprofloxacin [From Cipro] Allergy Rash/Hives Verified 02/13/17 21:06 ciprofloxacin HCl Allergy Rash/Hives Verified 02/13/17 21:06 [From Cipro] clarithromycin [From Biaxin] Allergy Rash/Hives Verified 02/13/17 21:06 hydrocodone bitartrate Allergy Rash/Hives Verified 02/13/17 21:06 [From Vicodin] hydromorphone HCl Allergy Itching Verified 02/13/17 21:06 [From Dilaudid] levofloxacin [From Levaquin] Allergy Rash/Hives Verified 02/13/17 21:06 lorazepam [From Ativan] Allergy SEIZURES Verified 02/13/17 21:06 meloxicam [From Mobic] Allergy Rash/Hives Verified 02/13/17 21:06 oxycodone Allergy Confusion Verified 02/13/17 21:06 Penicillins Allergy Swelling Verified 02/13/17 21:06 IN THROAT promethazine HCl Allergy SEIZURES Verified 02/13/17 21:06 [From Phenergan] propoxyphene napsylate Allergy Rash/Hives Verified 02/13/17 21:06 [From Darvocet-N] tramadol HCl [From Ultram] Allergy SEIZURES Verified 02/13/17 21:06 Physical Exam Vitals: Vital Signs Temp Pulse Pulse Resp BP BP Pulse Ox 02/14/17 08:00 98.6 F 89 18 136/78 98 02/14/17 04:00 96 18 02/14/17 00:00 100 18 02/13/17 23:54 98.4 F 100 18 138/70 99 02/13/17 21:17 16 02/13/17 19:50 98.1 F 95 18 175/97 98 02/13/17 19:25 98.9 F 102 H 18 166/85 100 02/13/17 18:07 102 H 18 166/85 100 02/13/17 14:43 98.9 F 98 18 149/79 98 Intake and Output 02/13/17 02/14/17 02/14/17 22:59 06:59 14:59 Intake Total 800 850 Balance 800 850 Intake: Amount of Fluid Infused ( 800 ml) Intake, IV Titration 800 Amount Sodium Chloride 0.9% 1, 800 000 ml @ 100 mls/hr IV . Q10H STA Rx#:[id number] Oral 50 Other: Voiding Method Toilet Toilet # Voids 1 3 Weight 63.049 kg - Constitutional General appearance: average body habitus, mild distress - EENT Eyes: anicteric sclerae, EOMI, PERRLA, no ptosis, no scleral icterus, normal appearance ENT: hearing grossly normal, NA/AT, normal oropharynx, no thrush Ears: bilateral: normal - Neck Neck: no lymphadenopathy, normal ROM, no rigidity, no stridor, no thyromegaly Carotids: bilateral: upstroke normal Thyroid: bilateral: normal size - Respiratory Respiratory: bilateral: diminished, negative: dullness, rales, rhonchi, wheezing , prolonged expiration - Cardiovascular Rhythm: irregularly irregular Heart sounds: normal: S1, S2 Abnormal Heart Sounds: no systolic murmur, no S3 Gallop, no S4 Gallop - Gastrointestinal General gastrointestinal: decreased bowel sounds, soft, tenderness (in the mid epigastric area.) - Integumentary Integumentary: normal, normal turgor - Neurologic Neurologic: CNII-XII intact - Musculoskeletal Musculoskeletal: generalized weakness, strength equal bilaterally - Psychiatric Psychiatric: A&O x's 3, appropriate affect, intact judgment & insight Results CBC & Chem 7: 02/15/17 07:36 02/15/17 07:36 Labs: Abnormal Lab Results - Last 24 Hours (Table) 02/13/17 02/13/17 Range/Units 17:04 17:04 APTT 21.2 L (22.0-30.0) sec Chloride 109 H (98-107) mmol/L Lipase 449 H (23-300) U/L Thrombosis Risk Factor Assmnt - DVT/VTE Prophylaxis DVT/VTE Prophylaxis: Pharmacologic Prophylaxis ordered, Mechanical Prophylaxis ordered - Choose All That Apply Each Risk Factor Represents 2 Points: Age 61-74 years Thrombosis Risk Factor Assessment Total Risk Factor Score: 2 Thrombosis Risk Factor Assessment Level: Low Risk Assessment and Plan Plan: Assessment and plan: 1. Mild elevation of lipase possible mild pancreatitis without any evidence of severe case of pancreatitis. Patient was kept on nothing per mouth for tonight she will be started on clear liquid diet, she will be kept on current pain management, she was seen in consultation by surgery there is no further recommendations at this point in time. I had a long conversation with the patient about possibly for abdominal angina that could be related to superior mesenteric artery ischemia subsequently patient may need to follow-up as an outpatient with [facility] as planned by her primary care physician and she was in agreement for that. 2. 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 Patient will need to go for celiac trunk angiogram. 3. History of seizure disorder. Continue Breviact 100 mg orally twice every day. 4. Hypertension and hypertensive cardiovascular disease. Continue verapamil 40 mg orally bedtime. 5. Migraine headaches. Continue verapamil for secondary prevention. 6. History of GERD. Continue PPI. 7. DVT prophylaxis. Heparin 5000 units subcutaneously every 12 hours. 8. GI prophylaxis. As above. 9. Patient is a full code. 10. OBV.
[2017-02-14] MEDS: DESVENLAFAXINE SUCCINATE 25 MG PO SCH (21:25)
[2017-02-14] MEDS: HEPARIN SODIUM,PORCINE 5,000 UNIT/ML 1 ML VIAL SQ SCH (21:25)
[2017-02-14] MEDS: VERAPAMIL 40 MG TAB PO SCH (21:25)
[2017-02-14] MEDS: MORPHINE SULFATE 2 MG/ML SYRINGE IVP PRN (22:02)
[2017-02-15 08:03] LABS: Basophils % (A) 1 %; CH 33.7; CHCM 36.5; Eosinophils # (A) 0.3 k/uL (0-0.7); Eosinophils % (A) 4 %; HCT 37.4 % (34.0-46.0); HDW 2.89; HGB 13.7 gm/dL (11.4-16.0); Luc % (Auto) 1; Lymphocytes # (A) 2.2 k/uL (1.0-4.8); Lymphocytes % (A) 31 %; MCH 34.1 pg (25.0-35.0); MCHC 36.8 g/dL (31.0-37.0); Mean Platelet Volume 8.1; Monocytes # (A) 0.5 k/uL (0-1.0); Monocytes % (A) 6 %; Neutrophils # (A) 4.2 k/uL (1.3-7.7); Neutrophils % (A) 57 %; RBC 4.03 m/uL (3.80-5.40); RDW 12.4 % (11.5-15.5); WBC 7.3 k/uL (3.8-10.6); WBC (Perox) 7.37
[2017-02-15] MEDS: PANTOPRAZOLE 40 MG/10 ML VIAL IVP SCH (08:07)
[2017-02-15] MEDS: HEPARIN SODIUM,PORCINE 5,000 UNIT/ML 1 ML VIAL SQ SCH ×2 (08:07→21:49)
[2017-02-15] MEDS: DICYCLOMINE 20 MG TAB PO SCH ×2 (08:07→21:49)
[2017-02-15 08:18] LABS: MCV 92.8 fL (80.0-100.0)
[2017-02-15] MEDS: BRIVARACETAM 100 MG PO SCH ×2 (08:29→21:48)
[2017-02-15] MEDS: ONDANSETRON 4 MG/2 ML VIAL IVP PRN ×2 (08:29→19:40)
[2017-02-15 08:43] LABS: Anion Gap 8 mmol/L; Carbon Dioxide 24 mmol/L (22-30); Chloride 106 mmol/L (98-107); Glucose 85 mg/dL (74-99); Non-African American GFR(MDRD) >60 (>60 ml/min/1.73 sqM); Sodium 138 mmol/L (137-145); Total Bilirubin 0.5 mg/dL (0.2-1.3); Total Protein 5.6 g/dL (6.3-8.2)
[2017-02-15 08:55] LABS: Blood Urea Nitrogen 5 mg/dL (7-17); Potassium 3.8 mmol/L (3.5-5.1)
[2017-02-15 08:56] LABS: ALT 41 U/L (9-52); AST 31 U/L (14-36); Alkaline Phosphatase 81 U/L (38-126)
[2017-02-15] MEDS: diphenhydrAMINE 50 MG/ML 1 ML VIAL IVP PRN ×2 (09:36→19:39)
[2017-02-15] MEDS: MORPHINE SULFATE 2 MG/ML SYRINGE IVP PRN ×2 (09:37→19:41)
--- NOTE | 2017-02-15 13:47 | P.PN ---
Subjective Progress Note Date: 02/15/17 Principal diagnosis: Pancreatitis Patient states that her abdominal pain is improved today however she complains of some nausea and emesis after eating. Denies any fevers or chills no other complaints at this time Objective - Vital Signs Vital signs: Vital Signs Temp 97.8 F 02/15/17 07:00 Pulse 65 02/15/17 07:00 Resp 18 02/15/17 07:00 BP 131/68 02/15/17 07:00 Pulse Ox 96 02/15/17 07:00 Intake & Output 02/14/17 02/15/17 02/15/17 18:59 06:59 18:59 Intake Total 400 200 Balance 400 200 Intake: Oral 400 200 Other: Voiding Method Toilet # Voids 1 1 - Constitutional General appearance: Present: cooperative - Respiratory Details: Nonlabored breathing - Cardiovascular Rhythm: regular - Gastrointestinal Gastrointestinal Comment(s): Abdomen is soft nontender nondistended - Psychiatric Psychiatric: Present: A&O x's 3 - Labs CBC & Chem 7: 02/15/17 07:36 02/15/17 07:36 Labs: Abnormal Lab Results - Last 24 Hours (Table) 02/15/17 Range/Units 07:36 BUN 5 L (7-17) mg/dL Total Protein 5.6 L (6.3-8.2) g/dL Assessment and Plan (1) Pancreatitis Status: Acute Plan: Pancreatitis appears to be resolving however the patient is experiencing some nausea. Will try clears today. No acute surgical intervention planned at this time.
[2017-02-15] MEDS ORDERED: DEXTROSE 5%-0.45% NACL 1,000 ML IV SCH (15:00)
[2017-02-15] MEDS: D5-0.45% NACL WITH KCL 20MEQ/L 1,000 ML IV SCH ×2 (16:44→21:49)
--- NOTE | 2017-02-15 20:21 | P.PN ---
Subjective Progress Note Date: 02/15/17 This is a 60-year-old female one of Dr. Paige with a previous medical history significant for hypertension and hypertensive cardiovascular disease, seizure disorder, hyperlipidemia, GERD, headache, osteoarthritis, history of diverticulitis in the past status post partial colectomy, patient has been struggling with significant abdominal pain over the last year or so initially she thought it was due to her hiatal hernia for which she underwent had a hernia repair that was done in April 2016 without any relief of her pain apparently the patient was seen by the histology supposed to be transferred to the [facility] as an outpatient to follow-up with one of the vascular surgery for possible superior mesenteric artery stenting. Apparently the patient came to the ER with increased bowel pain associated with increased nausea and vomiting not able to get anything out except for dry heaves associated with significant diarrhea as well as she has no hematemesis or hematochezia she has no black tarry stool, she was seen in the ER she was found to have an elevated lipase of 449 because of that she he was felt that the patient needed to be admitted to the hospital for evaluation she was seen in consultation by general surgery she was started on clear liquid diet, patient continues to have significant pain in the midepigastric area radiating to the back she has no evidence of any surgical abdomen at this point patient will be kept in the hospital for another 24 hours she was placed on clear liquid diet and hopefully she will be discharged home in the next 24 hours. I spoke with the patient in length about the possibility of abdominal angina and she is in agreement to go and follow up with her primary care physician and keep the planned to go to the [facility] for possible angiogram of the celiac plexus for evaluation of possible superior mesenteric artery stenosis. 02/15: Patient feels nauseated and not able to tolerate clears very well , we will increase IVF and will monitor for the next 24 h and keep on supportive care. Objective - Vital Signs Vital signs: Vital Signs Temp 97.8 F 02/15/17 07:00 Pulse 65 02/15/17 07:00 Resp 18 02/15/17 07:00 BP 131/68 02/15/17 07:00 Pulse Ox 96 02/15/17 07:00 Intake & Output 02/14/17 02/15/17 02/15/17 18:59 06:59 18:59 Intake Total 400 Balance 400 Intake: Oral 400 Other: Voiding Method Toilet # Voids 1 1 - Exam - Constitutional General appearance: average body habitus, mild distress - EENT Eyes: anicteric sclerae, EOMI, PERRLA, no ptosis, no scleral icterus, normal appearance ENT: hearing grossly normal, NA/AT, normal oropharynx, no thrush Ears: bilateral: normal - Neck Neck: no lymphadenopathy, normal ROM, no rigidity, no stridor, no thyromegaly Carotids: bilateral: upstroke normal Thyroid: bilateral: normal size - Respiratory Respiratory: bilateral: diminished, negative: dullness, rales, rhonchi, wheezing , prolonged expiration - Cardiovascular Rhythm: irregularly irregular Heart sounds: normal: S1, S2 Abnormal Heart Sounds: no systolic murmur, no S3 Gallop, no S4 Gallop - Gastrointestinal General gastrointestinal: decreased bowel sounds, soft, tenderness (in the mid epigastric area.) - Integumentary Integumentary: normal, normal turgor - Neurologic Neurologic: CNII-XII intact - Musculoskeletal Musculoskeletal: generalized weakness, strength equal bilaterally - Psychiatric Psychiatric: A&O x's 3, appropriate affect, intact judgment & insight - Labs CBC & Chem 7: 02/15/17 07:36 02/15/17 07:36 Assessment and Plan Plan: Assessment and plan: 1. Mild elevation of lipase possible mild pancreatitis without any evidence of severe case of pancreatitis. Patient was kept on nothing per mouth for tonight she will be started on clear liquid diet, she will be kept on current pain management, she was seen in consultation by surgery there is no further recommendations at this point in time. I had a long conversation with the patient about possibly for abdominal angina that could be related to superior mesenteric artery ischemia subsequently patient may need to follow-up as an outpatient with the [facility] as planned by her primary care physician and she was in agreement for that. 2. 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 Patient will need to go for celiac trunk angiogram. 3. History of seizure disorder. Continue Breviact 100 mg orally twice every day. 4. Hypertension and hypertensive cardiovascular disease. Continue verapamil 40 mg orally bedtime. 5. Migraine headaches. Continue verapamil for secondary prevention. 6. History of GERD. Continue PPI. 7. DVT prophylaxis. Heparin 5000 units subcutaneously every 12 hours. 8. GI prophylaxis. As above. 9. Patient is a full code.
[2017-02-15] MEDS: DESVENLAFAXINE SUCCINATE 25 MG PO SCH (21:47)
[2017-02-15] MEDS: VERAPAMIL 40 MG TAB PO SCH (21:49)
[2017-02-15 23:39] VITALS: RESP 16
--- NOTE | 2017-02-16 04:12 | P.CONS ---
History of Present Illness - Reason for Consult Consult date: 02/14/17 Pancreatitis - History of Present Illness The patient is a 61-year-old female who presented to the emergency room with intractable abdominal pain and was found to have elevated lipase level and was admitted for further management with the working diagnosis of acute pancreatitis. The patient reported similar episodes of pains since 1999 or 2001 occurring once or twice a year, however, these has been occurring more frequently this last year. She, apparently, does not comment to the hospital every time she has an episode of pain and tries self-care by staying in bed and following liquid diet with improvement after few days. She had hiatal hernia surgery within the last year without improvement. 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 There is no history of alcohol use. She had prior cholecystectomy. She also had prior bowel resection surgery. Review of Systems Constitutional: Denied fever, chills and unintentional weight loss Neurologic: No headaches, double vision or sensory or motor changes. History of seizure disorder Cardiopulmonary: Denies chest pains, shortness of breath or palpitations Genitourinary: No hematuria, dysuria or frequency. History of kidney stones. history of cervical cancer, S/P hysterectomy Skin: No rashes Musculoskeletal: No joint swelling or pain Endocrine: No diabetes or thyroid disease Psychiatric: No anxiety or depression Past Medical History Past Medical History: Cancer, Hypertension, Seizure Disorder Additional Past Medical History / Comment(s): Last seizure 10/2016, Chronic Pancreatitis. Hx Kidney Stones, Hx Cervical Cancer. HIATAL HERNIA. History of Any Multi-Drug Resistant Organisms: None Reported Past Surgical History: Appendectomy, Bowel Resection, Cholecystectomy, Hysterectomy Additional Past Surgical History / Comment(s): Surgery on RT Salivary Gland. RT ELBOW NERVE SURG. EGD & COLONOSCOPY, JADEN FUNDLAPLASTY 06/2015, cervicle cancer surgery 1988 Past Anesthesia/Blood Transfusion Reactions: Postoperative Nausea & Vomiting ( PONV) Additional Past Anesthesia/Blood Transfusion Reaction / Comm: TAKES LONG TIME TO AWAKEN Past Psychological History: Anxiety, Panic Disorder Additional Psychological History / Comment(s): PT STATED SHE SEE'S A THERAPIST. CURRENTLY DENIES ANY THOUGHTS OF HARMING SELF NO HOPELESSNESS FELINGS. Smoking Status: Former smoker Past Alcohol Use History: None Reported Additional Past Alcohol Use History / Comment(s): SMOKED 20 YEARS, 5 PPD. QUIT 1998 Past Drug Use History: None Reported - Past Family History Mother Sister(s) Family Medical History: Cancer Additional Family Medical History / Comment(s): COLON CANCER. GRANDFATHER ALSO HAD COLON CANCER Mother Family Medical History: Cancer (mother at age of 62 from colon cancer she also had history of MO and hypertension.), Myocardial Infarction (MO) Father Family Medical History: Hypertension (father at age of 88 from hypertension.) Brother(s) Family Medical History: No Reported History (patient had 3 brothers one of them from motor vehicle accident.) Sister(s) Family Medical History: Cancer (patient has one sister who from head and neck cancer.) Daughter(s) Family Medical History: No Reported History (patient has one daughter biologic no major medical problems) Son(s) Family Medical History: No Reported History (patient has one biologic son no major medical problem and 3 adopted sons.) Medications and Allergies Home Medications Medication Instructions Recorded Confirmed Type Verapamil [Isoptin] 40 mg PO HS 06/25/16 02/13/17 History Brivaracetam [Briviact] 100 mg PO BID 08/12/16 02/13/17 History Desvenlafaxine Succinate 25 mg PO HS 11/28/16 02/13/17 History [Desvenlafaxine Succinate ER] Dicyclomine [Bentyl] 20 mg PO BID 02/13/17 02/13/17 History Omeprazole [PriLOSEC] 20 mg PO AC-BRKFST 02/13/17 02/13/17 History Allergies Allergy/AdvReac Type Severity Reaction Status Date / Time ciprofloxacin [From Cipro] Allergy Rash/Hives Verified 02/13/17 21:06 ciprofloxacin HCl Allergy Rash/Hives Verified 02/13/17 21:06 [From Cipro] clarithromycin [From Biaxin] Allergy Rash/Hives Verified 02/13/17 21:06 hydrocodone bitartrate Allergy Rash/Hives Verified 02/13/17 21:06 [From Vicodin] hydromorphone HCl Allergy Itching Verified 02/13/17 21:06 [From Dilaudid] levofloxacin [From Levaquin] Allergy Rash/Hives Verified 02/13/17 21:06 lorazepam [From Ativan] Allergy SEIZURES Verified 02/13/17 21:06 meloxicam [From Mobic] Allergy Rash/Hives Verified 02/13/17 21:06 oxycodone Allergy Confusion Verified 02/13/17 21:06 Penicillins Allergy Swelling Verified 02/13/17 21:06 IN THROAT promethazine HCl Allergy SEIZURES Verified 02/13/17 21:06 [From Phenergan] propoxyphene napsylate Allergy Rash/Hives Verified 02/13/17 21:06 [From Darvocet-N] tramadol HCl [From Ultram] Allergy SEIZURES Verified 02/13/17 21:06 Physical Exam Vitals: Vital Signs Temp Pulse Pulse Resp BP BP Pulse Ox 02/14/17 08:00 98.6 F 89 18 136/78 98 02/14/17 04:00 96 18 02/14/17 00:00 100 18 02/13/17 23:54 98.4 F 100 18 138/70 99 02/13/17 21:17 16 02/13/17 19:50 98.1 F 95 18 175/97 98 02/13/17 19:25 98.9 F 102 H 18 166/85 100 02/13/17 18:07 102 H 18 166/85 100 Intake and Output 02/14/17 02/14/17 02/14/17 06:59 14:59 22:59 Intake Total 850 Balance 850 Intake: Intake, IV Titration 800 Amount Sodium Chloride 0.9% 1, 800 000 ml @ 100 mls/hr IV . Q10H STA Rx#:[id number] Oral 50 Other: Voiding Method Toilet # Voids 3 General appearance: The patient is alert, oriented, in no acute distress. HET: Head is normocephalic and atraumatic. Pupils are equal and reactive. Oropharynx is clear without lesions. Neck: Supple without lymphadenopathy. Trachea midline. Heart: S1 S2. Regular rate and rhythm. Lungs: No crackles or wheezes are heard. Abdomen: Soft, nondistended with bowel sounds. Mild tenderness in epigastric area. No peritoneal signs. No palpable organomegaly or masses. Extremities: Normal skin color and turgor. No cyanosis, rash, ulceration, clubbing, or edema. Radial and pedal pulses are 2/4 bilaterally. Neurological: No focal deficits. Strength and sensation are grossly intact. Results CBC & Chem 7: 02/15/17 07:36 02/15/17 07:36 Assessment and Plan Plan: This 61-year-old female presenting with a clinical picture of chronic pancreatitis. In the absence of any clear etiology, we are most likely dealing with idiopathic pancreatitis. The management is essentially similar with different etiologies, although, specific etiology would have helped prevent future episodes. I doubt that we are dealing with steroid responsive pancreatitis in the absence of imaging findings and the absence of liver enzyme abnormalities and jaundice. Agree with your current management. Will continue to follow with you with interest.
--- NOTE | 2017-02-16 04:24 | P.PN ---
Subjective Progress Note Date: 02/15/17 The patient is a 61-year-old female who presented to the emergency room with intractable abdominal pain and was found to have elevated lipase level and was admitted for further management with the working diagnosis of acute pancreatitis. The patient reported similar episodes of pains since 1999 or 2001 occurring once or twice a year, however, these has been occurring more frequently this last year. She, apparently, does not comment to the hospital every time she has an episode of pain and tries self-care by staying in bed and following liquid diet with improvement after few days. She had hiatal hernia surgery within the last year without improvement. 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 There is no history of alcohol use. She had prior cholecystectomy. She also had prior bowel resection surgery. Last CT of the abdomen was last month and it revealed prior cholecystectomy but no other significant findings in the pancreas or biliary tree. The patient continues to feel somewhat nauseated today and is not desiring oral intake yet. No significant abdominal pain, fever, chills or jaundice. Objective - Vital Signs Vital signs: Vital Signs Temp 97.3 F L 02/15/17 14:12 Pulse 94 02/15/17 14:12 Resp 18 02/15/17 14:12 BP 119/69 02/15/17 14:12 Pulse Ox 97 02/15/17 14:12 Intake & Output 02/15/17 02/15/17 02/16/17 06:59 18:59 06:59 Intake Total 400 440 Balance 400 440 Intake: Oral 400 440 Other: Voiding Method Toilet # Voids 1 2 - Exam General appearance: The patient is alert, oriented, in no acute distress. HET: Head is normocephalic and atraumatic. Pupils are equal and reactive. Oropharynx is clear without lesions. Neck: Supple without lymphadenopathy. Trachea midline. Heart: S1 S2. Regular rate and rhythm. Lungs: No crackles or wheezes are heard. Abdomen: Soft, nontender, nondistended with bowel sounds. No peritoneal signs. No palpable organomegaly or masses. Extremities: Normal skin color and turgor. No cyanosis, rash, ulceration, clubbing, or edema. Radial and pedal pulses are 2/4 bilaterally. Neurological: No focal deficits. Strength and sensation are grossly intact. - Labs CBC & Chem 7: 02/15/17 07:36 02/15/17 07:36 Labs: Abnormal Lab Results - Last 24 Hours (Table) 02/15/17 Range/Units 07:36 BUN 5 L (7-17) mg/dL Total Protein 5.6 L (6.3-8.2) g/dL Assessment and Plan Plan: This 61-year-old female presenting with a clinical picture of chronic pancreatitis. In the absence of any clear etiology, we are most likely dealing with idiopathic pancreatitis. Agree with your current management. Will continue to follow with you closely. An endoscopic ultrasound can be considered based on her course after addressing the superior mesenteric artery stenosis at the [facility] as planned.
[2017-02-16 07:52] VITALS: BP 120/67; PULSE 82; TEMP 97.8
[2017-02-16] MEDS: HEPARIN SODIUM,PORCINE 5,000 UNIT/ML 1 ML VIAL SQ SCH (08:47)
[2017-02-16] MEDS: DICYCLOMINE 20 MG TAB PO SCH (08:47)
[2017-02-16] MEDS: PANTOPRAZOLE 40 MG/10 ML VIAL IVP SCH (08:47)
[2017-02-16] MEDS: ONDANSETRON 4 MG/2 ML VIAL IVP PRN (08:56)
[2017-02-16] MEDS: MORPHINE SULFATE 2 MG/ML SYRINGE IVP PRN (08:57)
[2017-02-16] MEDS: diphenhydrAMINE 50 MG/ML 1 ML VIAL IVP PRN (08:57)
[2017-02-16] MEDS: BRIVARACETAM 100 MG PO SCH (09:14)
[2017-02-16] MEDS: D5-0.45% NACL WITH KCL 20MEQ/L 1,000 ML IV SCH (09:15)
[2017-02-16 12:38] LABS: ALT 31 U/L (9-52); AST 39 U/L (14-36); Alkaline Phosphatase 76 U/L (38-126); Amylase <30 U/L (30-110); Anion Gap 7 mmol/L; Blood Urea Nitrogen 5 mg/dL (7-17); Calcium 8.8 mg/dL (8.4-10.2); Carbon Dioxide 25 mmol/L (22-30); Chloride 107 mmol/L (98-107); Glucose 93 mg/dL (74-99); Non-African American GFR(MDRD) >60 (>60 ml/min/1.73 sqM); Sodium 139 mmol/L (137-145); Total Bilirubin 0.6 mg/dL (0.2-1.3); Total Protein 5.7 g/dL (6.3-8.2)
[2017-02-16 12:45] LABS: Potassium 4.1 mmol/L (3.5-5.1)
--- NOTE | 2017-02-17 12:44 | P.DS ---
Providers Date of admission: 02/13/17 18:42 Expected date of discharge: 02/16/17 Attending physician: Shukri Ambrose Consults: 02/13/17 18:42 Consult Physician Routine Consulting Provider: Murray Tovar Consult Reason/Comments: juan luis,caitlin Do you want consulting provider notified?: Yes Consult Physician Routine Consulting Provider: Osman Amanda Consult Reason/Comments: known Do you want consulting provider notified?: Yes Primary care physician: Sharon Paige [facility] Course: This is a 60-year-old female one of Dr. Paige with a previous medical history significant for hypertension and hypertensive cardiovascular disease, seizure disorder, hyperlipidemia, GERD, headache, osteoarthritis, history of diverticulitis in the past status post partial colectomy, patient has been struggling with significant abdominal pain over the last year or so initially she thought it was due to her hiatal hernia for which she underwent had a hernia repair that was done in April 2016 without any relief of her pain apparently the patient was seen by the histology supposed to be transferred to the [facility] as an outpatient to follow-up with one of the vascular surgery for possible superior mesenteric artery stenting. Apparently the patient came to the ER with increased bowel pain associated with increased nausea and vomiting not able to get anything out except for dry heaves associated with significant diarrhea as well as she has no hematemesis or hematochezia she has no black tarry stool, she was seen in the ER she was found to have an elevated lipase of 449 because of that she he was felt that the patient needed to be admitted to the hospital for evaluation she was seen in consultation by general surgery she was started on clear liquid diet, patient continues to have significant pain in the midepigastric area radiating to the back she has no evidence of any surgical abdomen at this point patient will be kept in the hospital for another 24 hours she was placed on clear liquid diet and hopefully she will be discharged home in the next 24 hours. I spoke with the patient in length about the possibility of abdominal angina and she is in agreement to go and follow up with her primary care physician and keep the planned to go to the [facility] for possible angiogram of the celiac plexus for evaluation of possible superior mesenteric artery stenosis. 02/15: Patient feels nauseated and not able to tolerate clears very well , we will increase IVF and will monitor for the next 24 h and keep on supportive care. 02/16: Repeat amylase is less than 30 and lipase at 173. Patient states that she is still hurting a lot but no nausea. Plan is for patient to follow-up with [facility]. Patient was seen in consultation by Dr. Garcia and patient's symptoms were improving at the time of evaluation. She was also seen by Dr. Amanda with plan for follow-up [facility]. Patient will be discharged home today in stable condition. Discharge diagnoses: 1. Mild elevation of lipase possible mild pancreatitis without any evidence of severe case of pancreatitis. 2. 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 3. History of seizure disorder. 4. Hypertension and hypertensive cardiovascular disease. 5. Migraine headaches. 6. History of GERD. Discharge plan: Home Impression and plan of care have been directed as dictated by the signing physician. Betsy Calvillo nurse practitioner acting as scribe for signing physician. Cc: Dr. Paige Patient Condition at Discharge: Good Plan - Discharge Summary New Discharge Prescriptions: Continue Verapamil [Isoptin] 40 mg PO HS Brivaracetam [Briviact] 100 mg PO BID Desvenlafaxine Succinate [Desvenlafaxine Succinate ER] 25 mg PO HS Omeprazole [PriLOSEC] 20 mg PO AC-BRKFST Dicyclomine [Bentyl] 20 mg PO BID Discharge Medication List Verapamil [Isoptin] 40 mg PO HS 06/25/16 [History] Brivaracetam [Briviact] 100 mg PO BID 08/12/16 [History] Desvenlafaxine Succinate [Desvenlafaxine Succinate ER] 25 mg PO HS 11/28/16 [ History] Dicyclomine [Bentyl] 20 mg PO BID 02/13/17 [History] Omeprazole [PriLOSEC] 20 mg PO AC-BRKFST 02/13/17 [History] Follow up Appointment(s)/Referral(s): Sharon Paige MD [Primary Care Provider] - 1 Week Patient Instructions/Handouts: Pancreatitis (DC) Activity/Diet/Wound Care/Special Instructions: follow up as an outpatient with U marielos Monreal about superior mesenteric artery stenosis Discharge Disposition: HOME SELF-CARE
== END 2017-02-16 13:31 | disposition home or self-care (01) ==
LOC: EC 14:37 → 3OBS 18:42 → 4MS4W 02-14 17:05
PROVIDERS: ADMIT Internal Medicine; ATTEND Internal Medicine
DX: R74.8 Abnormal levels of other serum enzymes (principal); K86.1 Other chronic pancreatitis; K86.81 Exocrine pancreatic insufficiency; G40.909 Epilepsy, unspecified, not intractable, without status epilepticus; I11.9 Hypertensive heart disease without heart failure; G43.909 Migraine, unspecified, not intractable, without status migrainosus; K21.9 Gastro-esophageal reflux disease without esophagitis; E78.5 Hyperlipidemia, unspecified; M19.90 Unspecified osteoarthritis, unspecified site; F41.0 Panic disorder [episodic paroxysmal anxiety]; K58.0 Irritable bowel syndrome with diarrhea; Z79.899 Other long term (current) drug therapy; Z88.6 Allergy status to analgesic agent; Z88.1 Allergy status to other antibiotic agents; Z88.5 Allergy status to narcotic agent; Z88.0 Allergy status to penicillin; Z88.8 Allergy status to other drugs, medicaments and biological substances; Z85.41 Personal history of malignant neoplasm of cervix uteri; Z87.891 Personal history of nicotine dependence; Z80.0 Family history of malignant neoplasm of digestive organs; Z82.49 Family history of ischemic heart disease and other diseases of the circulatory system; Z90.49 Acquired absence of other specified parts of digestive tract
CPT/HCPCS: 96376 ×4; 96361 ×4; 96372 ×3; 96374; 96375; 99285; 36415; 80053 ×3; 82150 ×2; 82550; 82553; 83605; 83690 ×2; 84484; 85025 ×2; 85610; 85730; 74022; G0378 ×5; J2270 ×5; J1200 ×4; J1644 ×3; J2405 ×4; J1170; C9113 ×4

== ENCOUNTER 2017-02-28 13:29 | Observation (INO) | payer OTHER ==
[2017-02-28] MEDS ORDERED: SODIUM CHLORIDE 0.9% 500 ML IV ONE (14:04)
--- NOTE | 2017-02-28 14:10 | ED ---
General Adult HPI - General Chief complaint: Neuro Symptoms/Deficit Stated complaint: acting weird; hx of seizures Time Seen by Provider: 02/28/17 13:35 Source: patient, family, RN notes reviewed Mode of arrival: wheelchair Limitations: no limitations - History of Present Illness Initial comments: This is a 61-year-old female presents emergency Department with a past medical history significant for seizures. 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 Patient comes in today because she feels like she is out of. Family states she has slightly altered and very slow speaking. Patient states symptoms began about 12:30 and she has the sense that she is not really fully here. Patient states that all of her limbs are weak. Patient denies any fever or chills patient denies any chest pain difficulty breathing shortest breath per patient denies any headache. Patient denies any focal deficit. Patient states she does have abdominal pain but that is chronic and nothing new. Patient states she's nauseated. But has not vomited. Patient denies any diarrhea. Patient denies any recent injury or fall. Patient denies drug use. - Related Data Home Medications Medication Instructions Recorded Confirmed Verapamil [Isoptin] 40 mg PO HS 06/25/16 02/28/17 Brivaracetam [Briviact] 100 mg PO BID 08/12/16 02/28/17 Desvenlafaxine Succinate 25 mg PO HS 11/28/16 02/28/17 [Desvenlafaxine Succinate ER] Dicyclomine [Bentyl] 20 mg PO BID 02/13/17 02/28/17 Allergies Allergy/AdvReac Type Severity Reaction Status Date / Time ciprofloxacin [From Cipro] Allergy Rash/Hives Verified 02/28/17 14:11 ciprofloxacin HCl Allergy Rash/Hives Verified 02/28/17 14:11 [From Cipro] clarithromycin [From Biaxin] Allergy Rash/Hives Verified 02/28/17 14:11 hydrocodone bitartrate Allergy Rash/Hives Verified 02/28/17 14:11 [From Vicodin] hydromorphone HCl Allergy Itching Verified 02/28/17 14:11 [From Dilaudid] levofloxacin [From Levaquin] Allergy Rash/Hives Verified 02/28/17 14:11 lorazepam [From Ativan] Allergy Rash/Hives Verified 02/28/17 14:11 meloxicam [From Mobic] Allergy Rash/Hives Verified 02/28/17 14:11 oxycodone Allergy Rash/Hives Verified 02/28/17 14:11 Penicillins Allergy Swelling Verified 02/28/17 14:11 IN THROAT promethazine HCl Allergy Rash/Hives Verified 02/28/17 14:11 [From Phenergan] propoxyphene napsylate Allergy Rash/Hives Verified 02/28/17 14:11 [From Darvocet-N] tramadol HCl [From Ultram] Allergy Rash/Hives Verified 02/28/17 14:11 Review of Systems ROS Statement: Those systems with pertinent positive or pertinent negative responses have been documented in the HPI. ROS Other: All systems not noted in ROS Statement are negative. Past Medical History Past Medical History: Cancer, Hypertension, Seizure Disorder Additional Past Medical History / Comment(s): Last seizure 10/2016, Chronic Pancreatitis. Hx Kidney Stones, Hx Cervical Cancer. HIATAL HERNIA. History of Any Multi-Drug Resistant Organisms: None Reported Past Surgical History: Appendectomy, Bowel Resection, Cholecystectomy, Hysterectomy Additional Past Surgical History / Comment(s): Surgery on RT Salivary Gland. RT ELBOW NERVE SURG. EGD & COLONOSCOPY, JADEN FUNDLAPLASTY 06/2015, cervicle cancer surgery 1988 Past Anesthesia/Blood Transfusion Reactions: Postoperative Nausea & Vomiting ( PONV) Additional Past Anesthesia/Blood Transfusion Reaction / Comment(s): TAKES LONG TIME TO AWAKEN Past Psychological History: Anxiety, Panic Disorder Smoking Status: Former smoker Past Alcohol Use History: None Reported Past Drug Use History: None Reported - Past Family History Mother Sister(s) Family Medical History: Cancer Additional Family Medical History / Comment(s): COLON CANCER. GRANDFATHER ALSO HAD COLON CANCER Mother Family Medical History: Cancer (mother at age of 62 from colon cancer she also had history of IA and hypertension.), Myocardial Infarction (IA) Father Family Medical History: Hypertension (father at age of 88 from hypertension.) Brother(s) Family Medical History: No Reported History (patient had 3 brothers one of them from motor vehicle accident.) Sister(s) Family Medical History: Cancer (patient has one sister who from head and neck cancer.) Daughter(s) Family Medical History: No Reported History (patient has one daughter biologic no major medical problems) Son(s) Family Medical History: No Reported History (patient has one biologic son no major medical problem and 3 adopted sons.) General Exam - General Exam Comments Initial Comments: GENERAL: Patient is well-developed and well-nourished. Patient is nontoxic and well- hydrated and is in no acute distress. ENT: Neck is soft and supple. No significant lymphadenopathy is noted. Oropharynx is clear. Moist mucous membranes. Neck has full range of motion without eliciting any pain. EYES: The sclera were anicteric and conjunctiva were pink and moist. Extraocular movements were intact and pupils were equal round and reactive to light. Eyelids were unremarkable. PULMONARY: Unlabored respirations. Good breath sounds bilaterally. No audible rales rhonchi or wheezing was noted. CARDIOVASCULAR: There is a regular rate and rhythm without any murmurs gallops or rubs. ABDOMEN: Soft and nontender with normal bowel sounds. No palpable organomegaly was noted. There is no palpable pulsatile mass. SKIN: Skin is clear with no lesions or rashes and otherwise unremarkable. NEUROLOGIC: Patient is alert and oriented x3. Cranial nerves II through XII are grossly intact. Patient has generalized weakness of all 4 extremities. Symmetrical smile. Patient initially acted like she couldn't sit up later on she sat up on her own without problem but then could not lay back down without completely collapsing and not helping her self ground slowly. It seemed inconsistent.Patient is having some difficulty speaking but other times completely fluid speech except for the fact that she is talking in a baby talk like manner MUSCULOSKELETAL: Normal extremities with adequate strength and full range of motion. No lower extremity swelling or edema. No calf tenderness. LYMPHATICS: No significant lymphadenopathy is noted PSYCHIATRIC: Unable to evaluate because of the bizarre behavior Limitations: no limitations Course Vital Signs 02/28/17 02/28/17 02/28/17 13:34 14:47 15:40 Temperature 98.8 F Pulse Rate 115 H 90 90 Respiratory 20 20 18 Rate Blood Pressure 171/87 184/84 146/67 O2 Sat by Pulse 99 98 100 Oximetry Medical Decision Making - Medical Decision Making EKG shows normal sinus rhythm at 89 bpm TN interval is 150 QRS is 84 QT interval 374 QTC is 455. Patient's EKG shows no ST segment elevation or depression or T wave abnormalities are noted. Patient does show old Q waves in the inferior leads. Q waves that were seen were also seen on the old EKG. CT of the brain shows no acute normalities. I spoke with Dr. Escamilla and he agreed to admit the patient I admitted the patient. - Lab Data Result diagrams: 02/28/17 14:05 02/28/17 14:05 Lab Results 02/28/17 02/28/17 02/28/17 Range/Units 14:05 14:05 14:05 WBC 6.8 (3.8-10.6) k/uL RBC 4.27 (3.80-5.40) m/uL Hgb 13.7 (11.4-16.0) gm/dL Hct 39.9 (34.0-46.0) % MCV 93.5 (80.0-100.0) fL MCH 32.2 (25.0-35.0) pg MCHC 34.5 (31.0-37.0) g/dL RDW 12.5 (11.5-15.5) % Plt Count 266 (150-450) k/uL Neutrophils % 60 % Lymphocytes % 28 % Monocytes % 7 % Eosinophils % 3 % Basophils % 1 % Neutrophils # 4.1 (1.3-7.7) k/uL Lymphocytes # 1.9 (1.0-4.8) k/uL Monocytes # 0.5 (0-1.0) k/uL Eosinophils # 0.2 (0-0.7) k/uL Basophils # 0.1 (0-0.2) k/uL PT (9.0-12.0) sec INR (<1.2) APTT (22.0-30.0) sec Sodium 144 (137-145) mmol/L Potassium 4.4 (3.5-5.1) mmol/L Chloride 111 H (98-107) mmol/L Carbon Dioxide 22 (22-30) mmol/L Anion Gap 11 mmol/L BUN 7 (7-17) mg/dL Creatinine 0.58 (0.52-1.04) mg/dL Est GFR (MDRD) Af Amer >60 (>60 ml/min/1.73 sqM) Est GFR (MDRD) Non-Af >60 (>60 ml/min/1.73 sqM) Glucose 102 H (74-99) mg/dL Calcium 9.7 (8.4-10.2) mg/dL Total Bilirubin 0.3 (0.2-1.3) mg/dL AST 23 (14-36) U/L ALT 28 (9-52) U/L Alkaline Phosphatase 85 (38-126) U/L Total Creatine Kinase 37 (30-135) U/L CK-MB (CK-2) 0.4 (0.0-2.4) ng/mL CK-MB (CK-2) Rel Index 1.1 Troponin I <0.012 (0.000-0.034) ng/mL Total Protein 6.5 (6.3-8.2) g/dL Albumin 4.3 (3.5-5.0) g/dL Amylase 67 (30-110) U/L Lipase 387 H (23-300) U/L Urine Color Urine Appearance (Clear) Urine pH (5.0-8.0) Ur Specific [place] (1.001-1.035) Urine Protein (Negative) Urine Glucose (UA) (Negative) Urine Ketones (Negative) Urine Blood (Negative) Urine Nitrite (Negative) Urine Bilirubin (Negative) Urine Urobilinogen (<2.0) mg/dL Ur Leukocyte Esterase (Negative) Urine RBC (0-5) /hpf Urine WBC (0-5) /hpf Ur Squamous Epith Cells (0-4) /hpf Urine Mucus (None) /hpf Urine Opiates Screen (NotDetected) Ur Oxycodone Screen (NotDetected) Urine Methadone Screen (NotDetected) Ur Propoxyphene Screen (NotDetected) Ur Barbiturates Screen (NotDetected) U Tricyclic Antidepress (NotDetected) Ur Phencyclidine Scrn (NotDetected) Ur Amphetamines Screen (NotDetected) U Methamphetamines Scrn (NotDetected) U Benzodiazepines Scrn (NotDetected) Urine Cocaine Screen (NotDetected) U Marijuana (THC) Screen (NotDetected) 02/28/17 02/28/17 Range/Units 14:05 15:35 WBC (3.8-10.6) k/uL RBC (3.80-5.40) m/uL Hgb (11.4-16.0) gm/dL Hct (34.0-46.0) % MCV (80.0-100.0) fL MCH (25.0-35.0) pg MCHC (31.0-37.0) g/dL RDW (11.5-15.5) % Plt Count (150-450) k/uL Neutrophils % % Lymphocytes % % Monocytes % % Eosinophils % % Basophils % % Neutrophils # (1.3-7.7) k/uL Lymphocytes # (1.0-4.8) k/uL Monocytes # (0-1.0) k/uL Eosinophils # (0-0.7) k/uL Basophils # (0-0.2) k/uL PT 10.4 (9.0-12.0) sec INR 1.0 (<1.2) APTT 18.1 L (22.0-30.0) sec Sodium (137-145) mmol/L Potassium (3.5-5.1) mmol/L Chloride (98-107) mmol/L Carbon Dioxide (22-30) mmol/L Anion Gap mmol/L BUN (7-17) mg/dL Creatinine (0.52-1.04) mg/dL Est GFR (MDRD) Af Amer (>60 ml/min/1.73 sqM) Est GFR (MDRD) Non-Af (>60 ml/min/1.73 sqM) Glucose (74-99) mg/dL Calcium (8.4-10.2) mg/dL Total Bilirubin (0.2-1.3) mg/dL AST (14-36) U/L ALT (9-52) U/L Alkaline Phosphatase (38-126) U/L Total Creatine Kinase (30-135) U/L CK-MB (CK-2) (0.0-2.4) ng/mL CK-MB (CK-2) Rel Index Troponin I (0.000-0.034) ng/mL Total Protein (6.3-8.2) g/dL Albumin (3.5-5.0) g/dL Amylase (30-110) U/L Lipase (23-300) U/L Urine Color Light Yellow Urine Appearance Clear (Clear) Urine pH 6.5 (5.0-8.0) Ur Specific [place] 1.006 (1.001-1.035) Urine Protein Negative (Negative) Urine Glucose (UA) Negative (Negative) Urine Ketones Negative (Negative) Urine Blood Negative (Negative) Urine Nitrite Negative (Negative) Urine Bilirubin Negative (Negative) Urine Urobilinogen <2.0 (<2.0) mg/dL Ur Leukocyte Esterase Trace H (Negative) Urine RBC <1 (0-5) /hpf Urine WBC 2 (0-5) /hpf Ur Squamous Epith Cells <1 (0-4) /hpf Urine Mucus Rare H (None) /hpf Urine Opiates Screen Not Detected (NotDetected) Ur Oxycodone Screen Not Detected (NotDetected) Urine Methadone Screen Not Detected (NotDetected) Ur Propoxyphene Screen Not Detected (NotDetected) Ur Barbiturates Screen Not Detected (NotDetected) U Tricyclic Antidepress Not Detected (NotDetected) Ur Phencyclidine Scrn Not Detected (NotDetected) Ur Amphetamines Screen Not Detected (NotDetected) U Methamphetamines Scrn Not Detected (NotDetected) U Benzodiazepines Scrn Not Detected (NotDetected) Urine Cocaine Screen Not Detected (NotDetected) U Marijuana (THC) Screen Not Detected (NotDetected) Disposition Clinical Impression: Altered mental state Disposition: ADMITTED IP TO THIS [facility] Referrals: Sharon Paige MD [Primary Care Provider] - 1-2 days Time of Disposition: 16:12
[2017-02-28 14:18] LABS: Basophils # (A) 0.1 k/uL (0-0.2); Basophils % (A) 1 %; CH 33.3; CHCM 35.8; Eosinophils # (A) 0.2 k/uL (0-0.7); Eosinophils % (A) 3 %; HCT 39.9 % (34.0-46.0); HDW 3.01; HGB 13.7 gm/dL (11.4-16.0); Luc # (Auto) 0.12; Luc % (Auto) 2; Lymphocytes # (A) 1.9 k/uL (1.0-4.8); Lymphocytes % (A) 28 %; MCH 32.2 pg (25.0-35.0); MCHC 34.5 g/dL (31.0-37.0); MCV 93.5 fL (80.0-100.0); Mean Platelet Volume 6.6; Monocytes # (A) 0.5 k/uL (0-1.0); Monocytes % (A) 7 %; Neutrophils # (A) 4.1 k/uL (1.3-7.7); Neutrophils % (A) 60 %; RBC 4.27 m/uL (3.80-5.40); RDW 12.5 % (11.5-15.5); WBC 6.8 k/uL (3.8-10.6); WBC (Perox) 6.39
[2017-02-28 14:26] LABS: ALT 28 U/L (9-52); AST 23 U/L (14-36); Alkaline Phosphatase 85 U/L (38-126); Amylase 67 U/L (30-110); Anion Gap 11 mmol/L; Blood Urea Nitrogen 7 mg/dL (7-17); Calcium 9.7 mg/dL (8.4-10.2); Carbon Dioxide 22 mmol/L (22-30); Chloride 111 mmol/L (98-107); Glucose 102 mg/dL (74-99); Non-African American GFR(MDRD) >60 (>60 ml/min/1.73 sqM); Partial Thromboplastin Time 18.1 sec (22.0-30.0); Potassium 4.4 mmol/L (3.5-5.1); Prothrombin Time 10.4 sec (9.0-12.0); Sodium 144 mmol/L (137-145); Total Bilirubin 0.3 mg/dL (0.2-1.3); Total Protein 6.5 g/dL (6.3-8.2)
--- NOTE | 2017-02-28 14:32 | CT ---
EXAMINATION TYPE: CT brain wo con DATE OF EXAM: 02/28/2017 COMPARISON: 08/28/2016 INDICATION: Altered mental status. History of cervical cancer and seizure disorder. Patient states sh e feels "weird." Confusion, feeling of electrical shocks through body, and heart racing. DLP: 877.20 mGycm, Automated exposure control for dose reduction was used. CONTRAST: None CT of the brain is performed utilizing 3 mm thick sections through the posterior fossa and 3 mm thick sections through the remaining calvarium. Study is performed within 24 hours of arrival to the hosp [facility]. No abnormal hyperdensity is present to suggest an acute intracranial hemorrhage. No mass lesion is evident. No acute infarcts are evident. Ventricles and sulci are appropriate for the patient age. Extra-axial space adjacent to the frontal lobes is slightly prominent. Significant change from prior exam however is not evident. Paranasal sinuses and mastoid air cells within the [id number] are clear. IMPRESSIONS: 1. No acute intracranial process.
[2017-02-28 14:40] LABS: Creatine Kinase 37 U/L (30-135)
--- NOTE | 2017-02-28 14:46 | XR ---
EXAMINATION TYPE: XR chest 2V DATE OF EXAM: 02/28/2017 COMPARISON: NONE INDICATION: Altered mental status hypertension seizure TECHNIQUE: Frontal and lateral views of the chest are obtained. FINDINGS: The heart size is normal. The pulmonary vasculature is normal. The lungs are clear. EKG leads overlie the chest. IMPRESSION: 1. No acute pulmonary process.
[2017-02-28] MEDS ORDERED: ONDANSETRON 4 MG/2 ML VIAL IVP STA (14:48)
[2017-02-28 14:53] LABS: Creatine Kinase MB 0.4 ng/mL (0.0-2.4); Troponin I <0.012 ng/mL (0.000-0.034)
[2017-02-28 15:45] LABS: Appearance,Urine Clear (Clear); Bilirubin,Urine Negative (Negative); Glucose,Urine (UA) Negative (Negative); Ketones,Urine Negative (Negative); Leukocyte Esterase,Urine Trace (Negative); Mucus,Urine Rare /hpf; Nitrite,Urine Negative (Negative); PH, Urine 6.5 (5.0-8.0); Particle Count 956; Protein,Urine Negative (Negative); RBC,Urine <1 /hpf (0-5); Specific Gravity,Urine 1.006 (1.001-1.035); Squamous Epithelial Cell,Urine <1 /hpf (0-4); UA Billing (MACRO vs. MICRO) MICRO; Urobilinogen,Urine <2.0 mg/dL (<2.0); WBC,Urine 2 /hpf (0-5)
[2017-02-28] MEDS: ONDANSETRON 4 MG/2 ML VIAL IVP PRN (18:44)
[2017-02-28] MEDS ORDERED: DESVENLAFAXINE 25 MG PO SCH (21:00)
[2017-02-28] MEDS ORDERED: VERAPAMIL 40 MG TAB PO SCH (21:00)
[2017-02-28] MEDS: BRIVIACT 100 MG PO SCH (21:01)
[2017-02-28] MEDS: DICYCLOMINE 20 MG TAB PO SCH (21:02)
--- NOTE | 2017-02-28 21:52 | HP ---
HISTORY AND PHYSICAL CHIEF COMPLAINT: Altered mental status and acting weird. HISTORY OF PRESENT ILLNESS: This 61-year-old female presented to the emergency department with altered mental status. Patient was eating at a local restaurant when she started acting weird according to her friend who was with her. The patient did not pass out but felt that she was about to pass out. The patient had some jerky movements. Did not lose consciousness and did not have any bowel or bladder incontinence. The patient complained of some weakness and fatigue after the episode, was slightly confused and presented to the emergency department where the patient was alert and oriented x3. Following commands and currently still following commands and alert, oriented x3. The patient was extremely weak and lethargic and had a history of seizure, was admitted for further evaluation and admitted to the medical floor. REVIEW OF SYSTEMS: All 14 systems reviewed and negative except as above. HOME MEDICATION: 1. Verapamil 40 mg daily. 2. Brivaracetam 100 mg twice daily. 3. Desvenlafaxine succinate 25 mg q.h.s. 4. Bentyl 20 mg twice daily as needed. ALLERGIES: CIPRO.CLARITHROMYCIN.VICODIN.DILAUDID.LEVAQUIN.ATIVAN.MOBIC.OXYCODONE.PENICILLIN.PHENER LUL.DARVOCET.ULTRAM. PAST MEDICAL HISTORY: 1. Hypertension. 2. Seizure disorder. 3. Chronic pancreatitis. 4. History of kidney stones. 5. History of cervical cancer. 6. Hiatal hernia. 7. Appendectomy. 8. Bowel resection. 9. Cholecystectomy. 10.Hysterectomy. 11.Right salivary gland surgery. 12.Right elbow nerve surgery. 13.EGD. 14.Colonoscopy. 15.Justin fundoplasty in February 2016. 16.Cervical cancer surgery 1988. FAMILY HISTORY: Significant for colon cancer in her mother. Hypertension in her father. PHYSICAL EXAMINATION: General: In her stated age, in no acute distress. HEENT atraumatic, normocephalic. PERRLA. LUNGS: Clear to auscultation bilaterally. NECK: Supple S1, S2. ABDOMEN: Soft, nontender, bowel sounds all 4 quadrants. Lower extremity no edema. Psych alert oriented x3. Following commands. Neuro no focal deficit. Cranial nerves 2-12 intact. Normal strength in all 4 extremities. Skin no rash. IMAGING AND LABS: EKG showed normal sinus rhythm. CT head head showed no acute abnormality. CBC showed normal finding. Chemistry showed normal finding. Liver function test within acceptable range. Troponin negative. Lipase is slightly elevated elevated at 387 with highest normal is 300. PT, PTT, INR within normal limits. UA was normal. Urine drug screen showed normal finding. ASSESSMENT AND PLAN: 1. Altered mental status. Unclear etiology. Patient had a history of seizure. Has been compliant with her medication according to her story. Unsure if this is like episode of seizure. The patient had no bowel or bladder incontinence. The patient had no trauma or loss of consciousness. I would like to consult Neurology. Continue her home medication and consider further recommendation per Neurology recommendation. 2. Generalized weakness. Unclear etiology as above. We will provide home medication and encourage oral intake and repeat blood work in the morning. 3. Seizure disorder. Management as above. 4. Hypertension under fair control. 5. History of chronic pancreatitis, likely slightly elevated. I would continue monitoring and repeat in the morning. 6. Irritable bowel syndrome. We will continue Bentyl 20 mg twice a day as needed. 7. Discharge planning based on clinical progress. MMODL / LAMN: [id number] /
[2017-02-28 22:03] LABS: Glucose,Whole Blood 86 mg/dL (75-99)
[2017-03-01 07:46] VITALS: BP 117/63; PULSE 82; RESP 20; TEMP 97.9
[2017-03-01 07:52] LABS: Basophils % (A) 1 %; CH 33.4; CHCM 34.4; Eosinophils # (A) 0.3 k/uL (0-0.7); Eosinophils % (A) 4 %; HCT 39.6 % (34.0-46.0); HDW 2.99; Luc # (Auto) 0.14; Luc % (Auto) 2; Lymphocytes # (A) 2.1 k/uL (1.0-4.8); Lymphocytes % (A) 30 %; MCH 32.1 pg (25.0-35.0); MCHC 32.9 g/dL (31.0-37.0); MCV 97.5 fL (80.0-100.0); Mean Platelet Volume 6.8; Monocytes # (A) 0.4 k/uL (0-1.0); Monocytes % (A) 6 %; Neutrophils # (A) 3.9 k/uL (1.3-7.7); Neutrophils % (A) 57 %; RBC 4.06 m/uL (3.80-5.40); RDW 12.4 % (11.5-15.5); WBC 6.9 k/uL (3.8-10.6); WBC (Perox) 6.95
[2017-03-01 07:59] LABS: ALT 28 U/L (9-52); AST 21 U/L (14-36); Alkaline Phosphatase 80 U/L (38-126); Anion Gap 11 mmol/L; Blood Urea Nitrogen 5 mg/dL (7-17); Calcium 9.2 mg/dL (8.4-10.2); Carbon Dioxide 20 mmol/L (22-30); Chloride 110 mmol/L (98-107); Glucose 89 mg/dL (74-99); Non-African American GFR(MDRD) >60 (>60 ml/min/1.73 sqM); Sodium 141 mmol/L (137-145); Total Bilirubin 0.4 mg/dL (0.2-1.3); Total Protein 5.8 g/dL (6.3-8.2)
[2017-03-01] MEDS: BRIVIACT 100 MG PO SCH (08:06)
[2017-03-01] MEDS: DICYCLOMINE 20 MG TAB PO SCH (08:06)
[2017-03-01] MEDS: ONDANSETRON 4 MG/2 ML VIAL IVP PRN (08:06)
--- NOTE | 2017-03-01 10:37 | P.DS ---
Providers Date of admission: 02/28/17 16:19 Attending physician: Marybel Ely Consults: 02/28/17 16:18 Consult Physician Urgent Consulting Provider: Jamila Perez Consult Reason/Comments: Altered mental status Do you want consulting provider notified?: Yes 03/01/17 03:45 Consult Physician Routine Consulting Provider: Angeles Monreal Consult Reason/Comments: chronic pancreatitis Do you want consulting provider notified?: Yes, Notify in am 03/01/17 08:00 Consult Physician Urgent Consulting Provider: Aaron Bosch Consult Reason/Comments: Patient with panic attacks and night terrors. Do you want consulting provider notified?: Yes Primary care physician: [facility] Course: This is 61 years old female who presented to the hospital with new onset weakness and fatigue. Patient is well known to have seizure and has been maintained on her medication for a long time and has been followed with neurology and sent clear. Patient denied any bowel or bladder incontinence, loss of consciousness, tongue biting or any trauma. Episode was witnessed by a friend when patient was at the restaurant and felt not to be related to seizure. Patient was admitted to the hospital for further evaluation and evaluated by neurology who recommended EEG and continuous EEG monitoring on an outpatient at [facility]. Patient stated that she would rather follow up with her primary neurologist outpatient as she's been maintained with this neurologist for a long time and he knows her anatomy better than any other physician and she would like to follow up outpatient. Patient felt stable from the medical standpoint and her entire blood work showed stability during the hospital stay. Patient's felt sterile from the medical standpoint and was discharged to follow-up with her primary care physician in one to 2 days and follow-up with neurology in 1 week for consideration for the above testing on outpatient basis. Plan discussed with the nursing staff and patient was discharged in stable condition. Plan - Discharge Summary New Discharge Prescriptions: No Action Verapamil [Isoptin] 40 mg PO HS Brivaracetam [Briviact] 100 mg PO BID Desvenlafaxine Succinate [Desvenlafaxine Succinate ER] 25 mg PO HS Dicyclomine [Bentyl] 20 mg PO BID Discharge Medication List Verapamil [Isoptin] 40 mg PO HS 06/25/16 [History] Brivaracetam [Briviact] 100 mg PO BID 08/12/16 [History] Desvenlafaxine Succinate [Desvenlafaxine Succinate ER] 25 mg PO HS 11/28/16 [ History] Dicyclomine [Bentyl] 20 mg PO BID 02/13/17 [History] Follow up Appointment(s)/Referral(s): Sharon Paige MD [Primary Care Provider] - 1-2 days
--- NOTE | 2017-03-01 10:38 | P.CNNES ---
History of Present Illness Consult date: 02/28/17 Reason for Consult: Patient is being evaluated for altered mental status and confusion. History of Present Illness: This patient is a 61-year-old right-handed white female who has a long-standing history of underlying seizure disorder. Patient states she was at home and just was not feeling well and describes as if she was in a trance. She states that her entire body was out of her control and that she was feeling weak. She states that her heart was racing. She could not focus. She just did not feel well and describes it as a weird sensation. She was noted to have some slurring of her speech as well. The patient apparently has a history of underlying seizure disorder. She has been taking Briviact 100 mg by mouth twice a day as her primary anticonvulsant medication. She states he has been to several neurologists over the years and has been treated with various anticonvulsant medications. She states she first developed fatigue mall seizures at the age of 6. These continued until she was age 20 and she seemed to be grown out of her seizures. Apparently in 2012 she had a grand mal seizure. She was started on Keppra and was evaluated at [facility] epilepsy unit. She was told to switch from Keppra to Lamictal. Apparently she developed hallucinations at that time and was taken off of Lamictal. She had been seen by another neurologist who continued her on Briviact in October 2016. She has been on the same anticonvulsant ever since. The patient was admitted to the medical floor for further management. There is no anticonvulsant blood level that can be done on this particular anticonvulsant that she is taking. She is at the maximum dose of this anticonvulsant. The patient apparently had a unusual event which was noted by her admitting nurse. An 18 code was called as there was concern whether she was having seizure-like activity. Apparently the nursing personnel who responded to the cold did not feel that she was having tonic-clonic or grand mal-like seizures but some weird movements were noted. The patient also mentions that she suffers from severe pancreatitis. She is followed by Dr. Monreal for this condition. She does continuously have recurrent abdominal pain and apparently is being scheduled to be seen at the [facility] for this condition. The patient is now admitted and neurology has been consulted for further evaluation and recommendations. Review of Systems Constitutional: Denies chills, Denies fever Eyes: denies blurred vision, denies pain Ears, nose, mouth and throat: Denies headache, Denies sore throat Cardiovascular: Denies chest pain, Denies shortness of breath Respiratory: Denies cough Gastrointestinal: Denies abdominal pain, Denies diarrhea, Denies nausea, Denies vomiting Genitourinary: Denies dysuria, Denies hematuria Musculoskeletal: Denies myalgias Integumentary: Denies pruritus, Denies rash Neurological: Reports change in mentation, Reports confusion, Reports convulsions, Reports hearing difficulties, Reports memory loss, Reports motor disturbance, Reports paresthesias, Reports tremors, Denies numbness, Denies weakness Psychiatric: Reports anxiety attacks, Reports disorientation, Reports irritability, Reports mood swings, Denies anxiety, Denies depression Endocrine: Denies fatigue, Denies weight change Past Medical History Past Medical History: Cancer, Hypertension, Seizure Disorder Additional Past Medical History / Comment(s): Last seizure 10/2016, Chronic Pancreatitis. Hx Kidney Stones, Hx Cervical Cancer. HIATAL HERNIA. History of Any Multi-Drug Resistant Organisms: None Reported Past Surgical History: Appendectomy, Bowel Resection, Cholecystectomy, Hysterectomy Additional Past Surgical History / Comment(s): Surgery on RT Salivary Gland. RT ELBOW NERVE SURG. EGD & COLONOSCOPY, JADEN FUNDLAPLASTY 06/2015, cervicle cancer surgery 1988 Past Anesthesia/Blood Transfusion Reactions: Postoperative Nausea & Vomiting ( PONV) Additional Past Anesthesia/Blood Transfusion Reaction / Comment(s): TAKES LONG TIME TO AWAKEN Past Psychological History: Anxiety, Panic Disorder Additional Psychological History / Comment(s): PT STATED SHE SEE'S A THERAPIST. CURRENTLY DENIES ANY THOUGHTS OF HARMING SELF NO HOPELESSNESS FELINGS. Smoking Status: Former smoker Past Alcohol Use History: None Reported Additional Past Alcohol Use History / Comment(s): SMOKED 20 YEARS, 5 PPD. QUIT 1998 Past Drug Use History: None Reported - Past Family History Mother Sister(s) Family Medical History: Cancer Additional Family Medical History / Comment(s): COLON CANCER. GRANDFATHER ALSO HAD COLON CANCER Mother Family Medical History: Cancer, Myocardial Infarction ([place]) Father Family Medical History: Hypertension Brother(s) Family Medical History: No Reported History Sister(s) Family Medical History: Cancer Daughter(s) Family Medical History: No Reported History Son(s) Family Medical History: No Reported History Medications and Allergies Home Medications Medication Instructions Recorded Confirmed Type Verapamil [Isoptin] 40 mg PO HS 06/25/16 02/28/17 History Brivaracetam [Briviact] 100 mg PO BID 08/12/16 02/28/17 History Desvenlafaxine Succinate 25 mg PO HS 11/28/16 02/28/17 History [Desvenlafaxine Succinate ER] Dicyclomine [Bentyl] 20 mg PO BID 02/13/17 02/28/17 History Allergies Allergy/AdvReac Type Severity Reaction Status Date / Time ciprofloxacin [From Cipro] Allergy Rash/Hives Verified 02/28/17 14:11 ciprofloxacin HCl Allergy Rash/Hives Verified 02/28/17 14:11 [From Cipro] clarithromycin [From Biaxin] Allergy Rash/Hives Verified 02/28/17 14:11 hydrocodone bitartrate Allergy Rash/Hives Verified 02/28/17 14:11 [From Vicodin] hydromorphone HCl Allergy Itching Verified 02/28/17 14:11 [From Dilaudid] levofloxacin [From Levaquin] Allergy Rash/Hives Verified 02/28/17 14:11 lorazepam [From Ativan] Allergy Rash/Hives Verified 02/28/17 14:11 meloxicam [From Mobic] Allergy Rash/Hives Verified 02/28/17 14:11 oxycodone Allergy Rash/Hives Verified 02/28/17 14:11 Penicillins Allergy Swelling Verified 02/28/17 14:11 IN THROAT promethazine HCl Allergy Rash/Hives Verified 02/28/17 14:11 [From Phenergan] propoxyphene napsylate Allergy Rash/Hives Verified 02/28/17 14:11 [From Darvocet-N] tramadol HCl [From Ultram] Allergy Rash/Hives Verified 02/28/17 14:11 Physical Examination - Vital Signs Vital Signs: Vital Signs Temp Pulse Pulse Resp BP BP Pulse Ox 02/28/17 17:20 98.0 F 100 20 124/90 98 02/28/17 16:52 97 18 140/70 99 02/28/17 15:40 90 18 146/67 100 02/28/17 14:47 90 20 184/84 98 02/28/17 13:34 98.8 F 115 H 20 171/87 99 Intake and Output 02/28/17 02/28/17 02/28/17 06:59 14:59 22:59 Other: Weight 61.689 kg Patient Weight 03/01/17 06:59 Weight 61.689 kg - Constitutional General appearance: average body habitus, cooperative - EENT EENT: PERRL, mucous membranes moist - Respiratory Respiratory: chest non-tender, lungs clear, rhonchi - Cardiovascular Cardiovascular: regular rate, normal S1, normal S2 Extremities: no peripheral edema bilaterally - Gastrointestinal Gastrointestinal: normoactive bowel sounds - Integumentary Integumentary: normal - Neurologic Reflex and gait examination: intact Reflexes: 1+: ankle, bicep, knee, tricep - Musculoskeletal Musculoskeletal: no pain - Psychiatric Psychiatric: mood/affect appropriate, cooperative Results - Laboratory Findings CBC and BMP: 03/01/17 07:15 03/01/17 07:15 Abnormal Lab Findings: Abnormal Labs 02/28/17 02/28/17 02/28/17 14:05 14:05 15:35 APTT 18.1 L Chloride 111 H Glucose 102 H Lipase 387 H Ur Leukocyte Esterase Trace H Urine Mucus Rare H Assessment and Plan (1) Acute encephalopathy Current Visit: Yes Status: Acute SNOMED Code(s): 6405668 (2) Seizure disorder Current Visit: Yes Status: Acute SNOMED Code(s): 468442057 (3) Intractable abdominal pain Current Visit: No Status: Acute SNOMED Code(s): 45283101 (4) Pancreatitis Current Visit: No Status: Acute SNOMED Code(s): 82265540 Plan: This patient is a 61-year-old female admitted with abnormal movements and questionable seizure-like activity. She has a long-standing history of underlying seizure disorder. She is currently on anticonvulsant therapy and takes Briviact 100 mg by mouth twice a day. Anticonvulsant blood levels are not available for this anticonvulsant at this time. The patient apparently has been taking her seizure medication on a very regular basis. She had an episode of confusion and altered mentation which brought her to the emergency room earlier today. She was seen in the ER by Dr. Moser and subsequently admitted to the hospital. Patient was sent for a computed tomography scan of the brain which was reported negative for any acute changes. Patient was admitted to the medical floor and had an event that was very unusual. An 18 code was called for this event. The patient is now back to baseline and is able to follow all commands. We are recommending she undergo routine EEG for further evaluation. She should continue on her current anticonvulsant medication. We are recommending a psychiatry consultation for further evaluation of panic disorder and night terrors. We will await further recommendations from psychiatry. We will recommend a gastroenterology consultation for further evaluation of her history of chronic pancreatitis and abdominal pain. Her overall prognosis at this time remains guarded. Time with Patient: Greater than 30
--- NOTE | 2017-03-01 13:02 | CONS ---
CONSULTATION DATE OF CONSULTATION: 03/01/17 REASON FOR CONSULTATION: Abdominal pain, nausea, vomiting. HISTORY OF PRESENT ILLNESS: The patient is a 61-year-old pleasant white female who was admitted to hospital with seizure-like activity and altered mental status. She has brought into the emergency room by her and subsequently admitted to the hospital for further evaluation. She was seen by neurology and was advised to have an outpatient EEG done. In the meantime, the reason we are consulted is because of ongoing intermittent abdominal pain associated with nausea, vomiting. The patient was admitted to the hospital in the beginning of this month for abdominal pain, slightly elevated lipase and was told she has pancreatitis. On review of the labs lipase was elevated to 400, which is less than 3 times upper limit of normal. Presently, she complains of some pain in the epigastric and right upper quadrant area. She has some nausea but no emesis. She has intermittent explosive diarrhea. Normally has regular bowel movements. No rectal bleeding. PAST MEDICAL HISTORY: Significant for hypertension, seizure disorder. MEDICATIONS: At home include Verapamil, and Bentyl. ALLERGIES: TO CIPRO, DILAUDID, VICODIN, ERYTHROMYCIN, ATIVAN, OXYCODONE, PENICILLIN AND DARVOCET. PAST MEDICAL HISTORY: Past medical history significant for hypertension, seizure disorder, gastroesophageal reflux disease, history of kidney stones. PAST SURGICAL HISTORY: Hiatal hernia repair, appendectomy, bowel resection, cholecystectomy, hysterectomy, right elbow surgery, EGD, colonoscopy in the past. Justin fundoplication. SOCIAL HISTORY: No smoking, alcohol use. FAMILY HISTORY: Mother had colon cancer and father has hypertension. REVIEW OF SYSTEMS: Cardiopulmonary: No chest pain or shortness of breath. Genitourinary: No dysuria or hematuria. Musculoskeletal: Unremarkable. Skin unremarkable and endocrine unremarkable. Psychiatric unremarkable. Neurology unremarkable. ENT vision unremarkable. Constitutional: No recent weight loss. No fever, chills, night sweats. PHYSICAL EXAMINATION: Blood pressure 129/90, pulse rate 100, temperature 98, HEENT examination unremarkable. Conjunctivae pink. Sclerae anicteric. Oral cavity no lesions. Neck: No jugular venous distention or lymph node enlargement. Chest clear to auscultation. HEART: Regular rate and rhythm. ABDOMEN: Soft, it was nontender, nondistended. Bowel sounds are positive. No organomegaly. Extremities no pedal edema. Skin no rashes. NEUROLOGIC: Alert and oriented x3. No focal deficits. LABS: From today, CBC is within normal limits. Amylase and lipase are normal. ALT, AST, T- bilirubin and alkaline phosphatase are normal. Lipase yesterday was 387 and today it is 414. CT of the abdomen and pelvis done in November of 2016 showed normal-appearing pancreas. She had a CT of the brain done yesterday which was normal. IMPRESSION: 1. Seizure-like activity. The patient being followed by Neurology. 2. Abdominal pain, nausea, vomiting. Mild elevation of lipase, not consistent with acute pancreatitis. Often in patients with acute pancreatitis the lipase is more than 3 times the upper limit of normal. I also reviewed labs from her last hospitalization, which was 3 weeks ago, and lipase was always less than 500. CT of the abdomen in November showed completely normal-appearing pancreas. RECOMMENDATIONS: 1. The patient has already been discharged home by Dr. Escamilla today, which I agree with. 2. She has an outpatient appointment to see me in the office in 2 days. 3. She will continue with David for possible irritable bowel syndrome. 4. We will follow her closely during the hospital stay. Thank you for this consultation. MMODL / IJN: [id number] /
== END 2017-03-01 13:46 | disposition home or self-care (01) ==
LOC: EC 13:29 → 4MS4W 16:19 → INTOOBSV 16:19
PROVIDERS: ADMIT Family Medicine; ATTEND Family Medicine
DX: R41.82 Altered mental status, unspecified (principal); R53.1 Weakness; G40.409 Other generalized epilepsy and epileptic syndromes, not intractable, without status epilepticus; G93.40 Encephalopathy, unspecified; K86.1 Other chronic pancreatitis; I10 Essential (primary) hypertension; F41.0 Panic disorder [episodic paroxysmal anxiety]; K58.0 Irritable bowel syndrome with diarrhea; Z79.899 Other long term (current) drug therapy; Z87.442 Personal history of urinary calculi; Z85.41 Personal history of malignant neoplasm of cervix uteri; Z90.49 Acquired absence of other specified parts of digestive tract; Z87.891 Personal history of nicotine dependence; Z88.1 Allergy status to other antibiotic agents; Z88.5 Allergy status to narcotic agent; Z88.0 Allergy status to penicillin; Z88.8 Allergy status to other drugs, medicaments and biological substances; F51.4 Sleep terrors [night terrors]; R10.9 Unspecified abdominal pain; R11.2 Nausea with vomiting, unspecified; R74.8 Abnormal levels of other serum enzymes
CPT/HCPCS: 96376 ×2; 96374; 99285; 36415; 93005; 80053 ×2; 82140; 82150; 82550; 82553; 83690 ×2; 84484; 85025 ×2; 85610; 85730; 81001; 80306; 71020; 70450; G0378 ×2; J2405 ×2

== ENCOUNTER 2017-04-07 16:14 | Emergency (ER) | payer OTHER ==
[2017-04-07 16:27] VITALS: RESP 16
[2017-04-07] MEDS ORDERED: ORPHENADRINE 30 MG/ML 2 ML VIAL IVP STA (17:53)
[2017-04-07] MEDS ORDERED: METOCLOPRAMIDE 5 MG/ML 2 ML VIAL IVP STA (17:53)
[2017-04-07] MEDS ORDERED: SODIUM CHLORIDE 0.9% 500 ML IV STA (17:53)
--- NOTE | 2017-04-07 18:01 | ED ---
Abdominal Pain HPI - General Chief Complaint: Abdominal Pain Stated Complaint: post surgical pain Time Seen by Provider: 04/07/17 17:34 Source: patient, family, RN notes reviewed Mode of arrival: wheelchair Limitations: no limitations - History of Present Illness Initial Comments: 61-year-old female presents emergency Department with chief complaint of abdominal pain. Patient states she's had chronic abdominal pain last year and a half up until one week ago which she received injections in her abdominal wall by her PCP. They felt that she had chronic abdominal wall secondary to her hiatal hernia surgery. Patient states that she went to [facility] for an EGD yesterday and states that she had now developed abdominal pain today. She states the pain is exactly what she had before and they did call her GI doctor who did this procedure and recommended her to receive her injection in her abdominal wall again. Patient denies any shortness of breath denies nausea vomiting diarrhea constipation. - Related Data Home Medications Medication Instructions Recorded Confirmed Verapamil [Isoptin] 40 mg PO HS 06/25/16 04/07/17 Brivaracetam [Briviact] 100 mg PO BID 08/12/16 04/07/17 Desvenlafaxine Succinate 25 mg PO HS 11/28/16 04/07/17 [Desvenlafaxine Succinate ER] Dicyclomine [Bentyl] 20 mg PO BID 02/13/17 04/07/17 Allergies Allergy/AdvReac Type Severity Reaction Status Date / Time ciprofloxacin [From Cipro] Allergy Rash/Hives Verified 04/07/17 17:50 ciprofloxacin HCl Allergy Rash/Hives Verified 04/07/17 17:50 [From Cipro] clarithromycin [From Biaxin] Allergy Rash/Hives Verified 04/07/17 17:50 dicyclomine [From Bentyl] Allergy Confusion Verified 04/07/17 17:50 hydrocodone bitartrate Allergy Rash/Hives Verified 04/07/17 17:50 [From Vicodin] hydromorphone HCl Allergy Itching Verified 04/07/17 17:50 [From Dilaudid] levofloxacin [From Levaquin] Allergy Rash/Hives Verified 04/07/17 17:50 lorazepam [From Ativan] Allergy Rash/Hives Verified 04/07/17 17:50 meloxicam [From Mobic] Allergy Rash/Hives Verified 04/07/17 17:50 oxycodone Allergy Rash/Hives Verified 04/07/17 17:50 Penicillins Allergy Swelling Verified 04/07/17 17:50 IN THROAT promethazine HCl Allergy Rash/Hives Verified 04/07/17 17:50 [From Phenergan] propoxyphene napsylate Allergy Rash/Hives Verified 04/07/17 17:50 [From Darvocet-N] tramadol HCl [From Ultram] Allergy Rash/Hives Verified 04/07/17 17:50 Review of Systems ROS Statement: Those systems with pertinent positive or pertinent negative responses have been documented in the HPI. ROS Other: All systems not noted in ROS Statement are negative. Past Medical History Past Medical History: Cancer, Hypertension, Seizure Disorder Additional Past Medical History / Comment(s): Last seizure 10/2016, Chronic Pancreatitis. Hx Kidney Stones, Hx Cervical Cancer. HIATAL HERNIA. History of Any Multi-Drug Resistant Organisms: None Reported Past Surgical History: Appendectomy, Bowel Resection, Cholecystectomy, Hysterectomy Additional Past Surgical History / Comment(s): Surgery on RT Salivary Gland. RT ELBOW NERVE SURG. EGD & COLONOSCOPY, JADEN FUNDLAPLASTY 06/2015, cervicle cancer surgery 1988 Past Anesthesia/Blood Transfusion Reactions: Postoperative Nausea & Vomiting ( PONV) Additional Past Anesthesia/Blood Transfusion Reaction / Comment(s): TAKES LONG TIME TO AWAKEN Past Psychological History: Anxiety, Panic Disorder Smoking Status: Former smoker Past Alcohol Use History: None Reported Past Drug Use History: None Reported - Past Family History Mother Sister(s) Family Medical History: Cancer Additional Family Medical History / Comment(s): COLON CANCER. GRANDFATHER ALSO HAD COLON CANCER Mother Family Medical History: Cancer, Myocardial Infarction ([place]) Father Family Medical History: Hypertension Brother(s) Family Medical History: No Reported History Sister(s) Family Medical History: Cancer Daughter(s) Family Medical History: No Reported History Son(s) Family Medical History: No Reported History General Exam Limitations: no limitations General appearance: alert, in no apparent distress Head exam: Present: atraumatic, normocephalic, normal inspection Neck exam: Present: normal inspection, full ROM. Absent: tenderness, meningismus, lymphadenopathy Respiratory exam: Present: normal lung sounds bilaterally. Absent: respiratory distress, wheezes, rales, rhonchi, stridor Cardiovascular Exam: Present: regular rate, normal rhythm, normal heart sounds. Absent: systolic murmur, diastolic murmur, rubs, gallop, clicks GI/Abdominal exam: Present: soft, tenderness (Moderate upper abdominal tenderness and epigastric tenderness), normal bowel sounds. Absent: distended, guarding, rebound, rigid Back exam: Absent: CVA tenderness (R), CVA tenderness (L) Skin exam: Present: warm, dry, intact, normal color. Absent: rash Course Vital Signs 04/07/17 16:24 Temperature 98.7 F Pulse Rate 83 Respiratory 16 Rate Blood Pressure 136/80 O2 Sat by Pulse 99 Oximetry Medical Decision Making - Medical Decision Making 61-year-old female presented emergency department for abdominal pain. Patient fiber, x-rays within normal limits. Patient was given Norflex states she feels much better at this time. Patient states she is symptom-free she'll be discharged with follow-up tomorrow with her PCP at her scheduled appointment return parameters were discussed. - Lab Data Result diagrams: 04/07/17 18:35 04/07/17 18:35 Lab Results 04/07/17 04/07/17 04/07/17 Range/Units 18:35 18:35 18:54 WBC 10.9 H (3.8-10.6) k/uL RBC 4.03 (3.80-5.40) m/uL Hgb 13.3 (11.4-16.0) gm/dL Hct 38.2 (34.0-46.0) % MCV 94.7 (80.0-100.0) fL MCH 32.9 (25.0-35.0) pg MCHC 34.7 (31.0-37.0) g/dL RDW 13.6 (11.5-15.5) % Plt Count 282 (150-450) k/uL Neutrophils % 63 % Lymphocytes % 27 % Monocytes % 5 % Eosinophils % 3 % Basophils % 1 % Neutrophils # 6.9 (1.3-7.7) k/uL Lymphocytes # 2.9 (1.0-4.8) k/uL Monocytes # 0.6 (0-1.0) k/uL Eosinophils # 0.4 (0-0.7) k/uL Basophils # 0.1 (0-0.2) k/uL Sodium 141 (137-145) mmol/L Potassium 4.3 (3.5-5.1) mmol/L Chloride 110 H (98-107) mmol/L Carbon Dioxide 21 L (22-30) mmol/L Anion Gap 10 mmol/L BUN 10 (7-17) mg/dL Creatinine 0.60 (0.52-1.04) mg/dL Est GFR (MDRD) Af Amer >60 (>60 ml/min/1.73 sqM) Est GFR (MDRD) Non-Af >60 (>60 ml/min/1.73 sqM) Glucose 87 (74-99) mg/dL Calcium 9.5 (8.4-10.2) mg/dL Total Bilirubin 0.4 (0.2-1.3) mg/dL AST 27 (14-36) U/L ALT 34 (9-52) U/L Alkaline Phosphatase 86 (38-126) U/L Total Protein 6.5 (6.3-8.2) g/dL Albumin 4.2 (3.5-5.0) g/dL Amylase 79 (30-110) U/L Lipase 424 H (23-300) U/L Urine Color Yellow Urine Appearance Clear (Clear) Urine pH 5.5 (5.0-8.0) Ur Specific [place] 1.015 (1.001-1.035) Urine Protein Negative (Negative) Urine Glucose (UA) Negative (Negative) Urine Ketones Negative (Negative) Urine Blood Negative (Negative) Urine Nitrite Negative (Negative) Urine Bilirubin Negative (Negative) Urine Urobilinogen <2.0 (<2.0) mg/dL Ur Leukocyte Esterase Negative (Negative) Disposition Clinical Impression: Abdominal pain Disposition: HOME SELF-CARE Condition: Stable Instructions: Abdominal Pain (ED) Additional Instructions: Please return to the Emergency Department if symptoms worsen or any other concerns. Referrals: Sharon Paige MD [Primary Care Provider] - 1-2 days Time of Disposition: 19:30
[2017-04-07 19:00] LABS: Basophils # (A) 0.1 k/uL (0-0.2); Basophils % (A) 1 %; CH 32.5; CHCM 34.4; Eosinophils # (A) 0.4 k/uL (0-0.7); Eosinophils % (A) 3 %; HCT 38.2 % (34.0-46.0); HDW 2.67; HGB 13.3 gm/dL (11.4-16.0); Luc # (Auto) 0.12; Luc % (Auto) 1; Lymphocytes # (A) 2.9 k/uL (1.0-4.8); Lymphocytes % (A) 27 %; MCH 32.9 pg (25.0-35.0); MCHC 34.7 g/dL (31.0-37.0); MCV 94.7 fL (80.0-100.0); Mean Platelet Volume 7.6; Monocytes # (A) 0.6 k/uL (0-1.0); Monocytes % (A) 5 %; Neutrophils # (A) 6.9 k/uL (1.3-7.7); Neutrophils % (A) 63 %; RBC 4.03 m/uL (3.80-5.40); RDW 13.6 % (11.5-15.5); WBC 10.9 k/uL (3.8-10.6); WBC (Perox) 11.33
[2017-04-07 19:10] LABS: ALT 34 U/L (9-52); AST 27 U/L (14-36); Alkaline Phosphatase 86 U/L (38-126); Amylase 79 U/L (30-110); Anion Gap 10 mmol/L; Blood Urea Nitrogen 10 mg/dL (7-17); Calcium 9.5 mg/dL (8.4-10.2); Carbon Dioxide 21 mmol/L (22-30); Chloride 110 mmol/L (98-107); Glucose 87 mg/dL (74-99); Non-African American GFR(MDRD) >60 (>60 ml/min/1.73 sqM); Potassium 4.3 mmol/L (3.5-5.1); Sodium 141 mmol/L (137-145); Total Bilirubin 0.4 mg/dL (0.2-1.3); Total Protein 6.5 g/dL (6.3-8.2)
[2017-04-07 19:13] LABS: Appearance,Urine Clear (Clear); Bilirubin,Urine Negative (Negative); Glucose,Urine (UA) Negative (Negative); Ketones,Urine Negative (Negative); Leukocyte Esterase,Urine Negative (Negative); Nitrite,Urine Negative (Negative); PH, Urine 5.5 (5.0-8.0); Protein,Urine Negative (Negative); Specific Gravity,Urine 1.015 (1.001-1.035); UA Billing (MACRO vs. MICRO) CHEM; Urobilinogen,Urine <2.0 mg/dL (<2.0)
--- NOTE | 2017-04-07 19:23 | XR ---
EXAMINATION TYPE: XR chest 2V DATE OF EXAM: 04/07/2017 COMPARISON: 02/28/2017 HISTORY: Abdominal pain TECHNIQUE: Frontal and lateral views of the chest are obtained. FINDINGS: Heart and mediastinum are normal. Lungs are clear. Costophrenic angles are clear. There ar e no hilar masses. Bony thorax is intact. IMPRESSION: Normal chest. No change.
--- NOTE | 2017-04-07 19:23 | XR ---
EXAMINATION TYPE: XR abdomen 2V DATE OF EXAM: 04/07/2017 COMPARISON: 02/13/2017 HISTORY: Abdominal pain TECHNIQUE: 3 views FINDINGS: There are clips from cholecystectomy. Bowel gas pattern is normal. There is no sign of inte stinal obstruction or pneumoperitoneum. Fecal pattern is normal. Lung bases are clear. IMPRESSION: Nonacute abdomen. No change.
[2017-04-07 19:38] VITALS: BP 136/60; PULSE 78; TEMP 98.1
== END 2017-04-07 19:41 | disposition home or self-care (01) ==
LOC: EC 16:14
DX: R10.9 Unspecified abdominal pain (principal); I10 Essential (primary) hypertension; G40.909 Epilepsy, unspecified, not intractable, without status epilepticus; F41.9 Anxiety disorder, unspecified; Z85.41 Personal history of malignant neoplasm of cervix uteri; Z87.442 Personal history of urinary calculi; Z87.19 Personal history of other diseases of the digestive system; Z87.891 Personal history of nicotine dependence; Z90.49 Acquired absence of other specified parts of digestive tract; Z90.710 Acquired absence of both cervix and uterus; Z98.890 Other specified postprocedural states; Z79.899 Other long term (current) drug therapy; Z88.0 Allergy status to penicillin; Z88.1 Allergy status to other antibiotic agents; Z88.5 Allergy status to narcotic agent; Z88.6 Allergy status to analgesic agent; Z88.8 Allergy status to other drugs, medicaments and biological substances
CPT/HCPCS: 36415; 80053; 82150; 83690; 85025; 81003; 71020; 74020; 99284; 96374; 96375; 96361; J2360; J2765

== ENCOUNTER 2017-08-05 09:32 | Emergency (ER) | payer OTHER ==
[2017-08-05] MEDS ORDERED: IBUPROFEN 600 MG TAB PO STA (10:08)
[2017-08-05] MEDS ORDERED: SODIUM CHLORIDE 0.9% 1,000 ML IV STA (10:08)
[2017-08-05] MEDS ORDERED: ACETAMINOPHEN TAB 500 MG TAB PO STA (10:08)
[2017-08-05 11:01] LABS: Basophils # (A) 0.1 k/uL (0-0.2); Basophils % (A) 1 %; Eosinophils # (A) 0.2 k/uL (0-0.7); Eosinophils % (A) 4 %; HGB 15.3 gm/dL (11.4-16.0); Lymphocytes # (A) 1.3 k/uL (1.0-4.8); Lymphocytes % (A) 20 %; MCH 32.5 pg (25.0-35.0); MCHC 36.4 g/dL (31.0-37.0); MCV 89.5 fL (80.0-100.0); Mean Platelet Volume 6.8; Monocytes # (A) 0.5 k/uL (0-1.0); Monocytes % (A) 7 %; Neutrophils # (A) 4.4 k/uL (1.3-7.7); Neutrophils % (A) 65 %; Platelet Count 229 k/uL (150-450); RDW 12.1 % (11.5-15.5); WBC 6.7 k/uL (3.8-10.6)
[2017-08-05 11:14] LABS: ALT 36 U/L (9-52); AST 35 U/L (14-36); Albumin 4.3 g/dL (3.5-5.0); Alkaline Phosphatase 109 U/L (38-126); Anion Gap 14 mmol/L; Blood Urea Nitrogen 8 mg/dL (7-17); Calcium 9.5 mg/dL (8.4-10.2); Carbon Dioxide 25 mmol/L (22-30); Chloride 104 mmol/L (98-107); Glucose 95 mg/dL (74-99); Sodium 143 mmol/L (137-145); Total Bilirubin 0.4 mg/dL (0.2-1.3); Total Protein 6.7 g/dL (6.3-8.2)
[2017-08-05 11:16] VITALS: RESP 18
[2017-08-05 11:23] LABS: Creatine Kinase 63 U/L (30-135)
--- NOTE | 2017-08-05 11:24 | XR ---
EXAMINATION TYPE: XR chest 2V DATE OF EXAM: 08/05/2017 COMPARISON: 04/07/2017 HISTORY: 62-year-old female with cough TECHNIQUE: PA and lateral views FINDINGS: The cardiomediastinal silhouette, aorta, and pulmonary vasculature are within normal limits. Mild int erstitial prominence is unchanged. No consolidation or pleural effusion. IMPRESSION: Chronic changes without acute cardiopulmonary process.
[2017-08-05 11:36] LABS: Creatine Kinase MB 0.4 ng/mL (0.0-2.4); Troponin I <0.012 ng/mL (0.000-0.034)
--- NOTE | 2017-08-05 12:02 | ED ---
General Adult HPI - General Chief complaint: Upper Respiratory Infection Stated complaint: Head & chest cold Time Seen by Provider: 08/05/17 10:00 Source: patient, RN notes reviewed Mode of arrival: ambulatory Limitations: no limitations - History of Present Illness Initial comments: Patient 62-year-old female presenting to the emergency room today with chief complaint of increased cough congestion. She does admit to some bodyaches. Admits some chills and fevers at home. She states she's had increased congestion with positive sputum production. States symptoms of increased last 4 days. Patient states she has not taken anything for the symptoms today other than her regular medications. Patient denies any recent shortness of breath, chest pain, back pain, abdominal pain, nausea or vomiting, numbness or tingling , dysuria or hematuria, constipation or diarrhea, visual changes, or any other complaints. - Related Data Home Medications Medication Instructions Recorded Confirmed Verapamil [Isoptin] 40 mg PO HS 06/25/16 08/05/17 Brivaracetam [Briviact] 100 mg PO BID 08/12/16 08/05/17 Desvenlafaxine Succinate 25 mg PO HS 11/28/16 08/05/17 [Desvenlafaxine Succinate ER] Cyanocobalamin [Vitamin B-12] 500 mcg PO DAILY 08/05/17 08/05/17 Fluticasone Nasal [place] [Flonase 1 spray EA NOSTRIL DAILY PRN 08/05/17 08/05/17 Nasal [place]] Pyridoxine [Vitamin B-6] 50 mg PO DAILY 08/05/17 08/05/17 Riboflavin [Vitamin B-2] 50 mg PO DAILY 08/05/17 08/05/17 guaiFENesin [Mucinex] 600 mg PO ONCE PRN 08/05/17 08/05/17 Previous Rx's Medication Instructions Recorded Azithromycin [Zithromax Z-pack] 0 mg PO DIRECTED #6 tab 08/05/17 methylPREDNISolone Dose Pack 4 mg PO DIRECTED #21 package 08/05/17 [Medrol Dose Pack] Allergies Allergy/AdvReac Type Severity Reaction Status Date / Time ciprofloxacin [From Cipro] Allergy Rash/Hives Verified 08/05/17 10:02 ciprofloxacin HCl Allergy Rash/Hives Verified 08/05/17 10:02 [From Cipro] clarithromycin [From Biaxin] Allergy Rash/Hives Verified 08/05/17 10:02 dicyclomine [From Bentyl] Allergy Confusion Verified 08/05/17 10:02 hydrocodone bitartrate Allergy Rash/Hives Verified 08/05/17 10:02 [From Vicodin] hydromorphone HCl Allergy Itching Verified 08/05/17 10:02 [From Dilaudid] levofloxacin [From Levaquin] Allergy Rash/Hives Verified 08/05/17 10:02 lorazepam [From Ativan] Allergy Rash/Hives Verified 08/05/17 10:02 meloxicam [From Mobic] Allergy Rash/Hives Verified 08/05/17 10:02 oxycodone Allergy Rash/Hives Verified 08/05/17 10:02 Penicillins Allergy Swelling Verified 08/05/17 10:02 IN THROAT promethazine HCl Allergy Rash/Hives Verified 08/05/17 10:02 [From Phenergan] propoxyphene napsylate Allergy Rash/Hives Verified 08/05/17 10:02 [From Darvocet-N] tramadol HCl [From Ultram] Allergy Rash/Hives Verified 08/05/17 10:02 Review of Systems ROS Statement: Those systems with pertinent positive or pertinent negative responses have been documented in the HPI. ROS Other: All systems not noted in ROS Statement are negative. Past Medical History Past Medical History: Cancer, Hypertension, Seizure Disorder Additional Past Medical History / Comment(s): Last seizure 10/2016, Chronic Pancreatitis. Hx Kidney Stones, Hx Cervical Cancer. HIATAL HERNIA. History of Any Multi-Drug Resistant Organisms: None Reported Past Surgical History: Appendectomy, Bowel Resection, Cholecystectomy, Hysterectomy Additional Past Surgical History / Comment(s): Surgery on RT Salivary Gland. RT ELBOW NERVE SURG. EGD & COLONOSCOPY, JADEN FUNDLAPLASTY 06/2015, cervicle cancer surgery 1988 Past Anesthesia/Blood Transfusion Reactions: Postoperative Nausea & Vomiting ( PONV) Additional Past Anesthesia/Blood Transfusion Reaction / Comment(s): TAKES LONG TIME TO AWAKEN Past Psychological History: Anxiety, Panic Disorder Smoking Status: Former smoker Past Alcohol Use History: None Reported Past Drug Use History: None Reported - Past Family History Mother Sister(s) Family Medical History: Cancer Additional Family Medical History / Comment(s): COLON CANCER. GRANDFATHER ALSO HAD COLON CANCER Mother Family Medical History: Cancer, Myocardial Infarction ([place]) Father Family Medical History: Hypertension Brother(s) Family Medical History: No Reported History Sister(s) Family Medical History: Cancer Daughter(s) Family Medical History: No Reported History Son(s) Family Medical History: No Reported History General Exam - General Exam Comments Initial Comments: General: The patient is awake and alert, in no distress, and does not appear acutely ill. Eye: Pupils are equal, round and reactive to light, extra-ocular movements are intact. No nystagmus. There is normal conjunctiva bilaterally. No signs of icterus. Ears, nose, mouth and throat: There are moist mucous membranes and no oral lesions. Neck: The neck is supple, there is no tenderness or JVD. Cardiovascular: There is a regular rate and rhythm. No murmur, rub or gallop is appreciated. Patient tender on palpation to the anterior chest wall. Respiratory: Lungs are clear to auscultation, respirations are non-labored, breath sounds are equal. No wheezes, stridor, rales, or rhonchi Musculoskeletal: Normal ROM, no tenderness. Strength 5/5. Sensation intact. Pulses equal bilaterally 2+. Neurological: A&O x 3. CN II-XII intact, There are no obvious motor or sensory deficits. Coordination appears grossly intact. Speech is normal. Skin: Skin is warm and dry and no rashes or lesions are noted. Psychiatric: Cooperative, appropriate mood & affect, normal judgment. Limitations: no limitations Course Vital Signs 08/05/17 08/05/17 08/05/17 09:44 11:14 12:17 Temperature 100.6 F H 99.3 F Pulse Rate 110 H 95 67 Respiratory 20 18 18 Rate Blood Pressure 159/86 184/76 139/89 O2 Sat by Pulse 96 99 99 Oximetry EKG Findings - EKG Comments: EKG Findings:: EKG performed at 1024: A 12-lead EKG was performed and shows the following: Rate is 100, and rhythm is normal sinus. There are normal QRS complexes and normal R-wave progression. ST segments have no elevation or depression, and AL segments appear normal. Medical Decision Making - Medical Decision Making Patient reexamined at this time shows no signs of distress. She is feeling better here in emergency room. She has had cough congestion over the last 4 days. She has had sputum production. Patient does have pain to the anterior chest wall that she admits is worse with the cough and congestion started after all the coughing over the last just 2 days. Patient pain is reproducible. She did have cardiac enzymes which are negative. Patient chest x-ray negative for any pneumonia. EKG showing no changes. Case was discussed with attending physician Dr. Reynolds. She'll restart on antibiotics of azithromycin cover for bronchitis infection also steroids. Advised follow-up family physician over the next 2 days return for any other concerns. - Lab Data Result diagrams: 08/05/17 10:45 08/05/17 10:45 Lab Results 08/05/17 08/05/17 08/05/17 Range/Units 10:45 10:45 10:45 WBC 6.7 (3.8-10.6) k/uL RBC 4.70 (3.80-5.40) m/uL Hgb 15.3 (11.4-16.0) gm/dL Hct 42.0 (34.0-46.0) % MCV 89.5 (80.0-100.0) fL MCH 32.5 (25.0-35.0) pg MCHC 36.4 (31.0-37.0) g/dL RDW 12.1 (11.5-15.5) % Plt Count 229 (150-450) k/uL Neutrophils % 65 % Lymphocytes % 20 % Monocytes % 7 % Eosinophils % 4 % Basophils % 1 % Neutrophils # 4.4 (1.3-7.7) k/uL Lymphocytes # 1.3 (1.0-4.8) k/uL Monocytes # 0.5 (0-1.0) k/uL Eosinophils # 0.2 (0-0.7) k/uL Basophils # 0.1 (0-0.2) k/uL Sodium 143 (137-145) mmol/L Potassium 4.0 (3.5-5.1) mmol/L Chloride 104 (98-107) mmol/L Carbon Dioxide 25 (22-30) mmol/L Anion Gap 14 mmol/L BUN 8 (7-17) mg/dL Creatinine 0.65 (0.52-1.04) mg/dL Est GFR (CKD-EPI)AfAm >90 (>60 ml/min/1.73 sqM) Est GFR (CKD-EPI)NonAf >90 (>60 ml/min/1.73 sqM) Glucose 95 (74-99) mg/dL Plasma Lactic Acid Chandu (0.7-2.0) mmol/L Calcium 9.5 (8.4-10.2) mg/dL Total Bilirubin 0.4 (0.2-1.3) mg/dL AST 35 (14-36) U/L ALT 36 (9-52) U/L Alkaline Phosphatase 109 (38-126) U/L Total Creatine Kinase (30-135) U/L CK-MB (CK-2) (0.0-2.4) ng/mL CK-MB (CK-2) Rel Index Troponin I (0.000-0.034) ng/mL Total Protein 6.7 (6.3-8.2) g/dL Albumin 4.3 (3.5-5.0) g/dL Urine Color Urine Appearance (Clear) Urine pH (5.0-8.0) Ur Specific Golden (1.001-1.035) Urine Protein (Negative) Urine Glucose (UA) (Negative) Urine Ketones (Negative) Urine Blood (Negative) Urine Nitrite (Negative) Urine Bilirubin (Negative) Urine Urobilinogen (<2.0) mg/dL Ur Leukocyte Esterase (Negative) Influenza Type A RNA Not Detected (Not Detectd) Influenza Type B (PCR) Not Detected (Not Detectd) 08/05/17 08/05/17 08/05/17 Range/Units 10:45 10:45 11:45 WBC (3.8-10.6) k/uL RBC (3.80-5.40) m/uL Hgb (11.4-16.0) gm/dL Hct (34.0-46.0) % MCV (80.0-100.0) fL MCH (25.0-35.0) pg MCHC (31.0-37.0) g/dL RDW (11.5-15.5) % Plt Count (150-450) k/uL Neutrophils % % Lymphocytes % % Monocytes % % Eosinophils % % Basophils % % Neutrophils # (1.3-7.7) k/uL Lymphocytes # (1.0-4.8) k/uL Monocytes # (0-1.0) k/uL Eosinophils # (0-0.7) k/uL Basophils # (0-0.2) k/uL Sodium (137-145) mmol/L Potassium (3.5-5.1) mmol/L Chloride (98-107) mmol/L Carbon Dioxide (22-30) mmol/L Anion Gap mmol/L BUN (7-17) mg/dL Creatinine (0.52-1.04) mg/dL Est GFR (CKD-EPI)AfAm (>60 ml/min/1.73 sqM) Est GFR (CKD-EPI)NonAf (>60 ml/min/1.73 sqM) Glucose (74-99) mg/dL Plasma Lactic Acid Chandu 0.9 (0.7-2.0) mmol/L Calcium (8.4-10.2) mg/dL Total Bilirubin (0.2-1.3) mg/dL AST (14-36) U/L ALT (9-52) U/L Alkaline Phosphatase (38-126) U/L Total Creatine Kinase 63 (30-135) U/L CK-MB (CK-2) 0.4 (0.0-2.4) ng/mL CK-MB (CK-2) Rel Index 0.6 Troponin I <0.012 (0.000-0.034) ng/mL Total Protein (6.3-8.2) g/dL Albumin (3.5-5.0) g/dL Urine Color Yellow Urine Appearance Clear (Clear) Urine pH 5.5 (5.0-8.0) Ur Specific [place] 1.014 (1.001-1.035) Urine Protein Negative (Negative) Urine Glucose (UA) Negative (Negative) Urine Ketones Negative (Negative) Urine Blood Negative (Negative) Urine Nitrite Negative (Negative) Urine Bilirubin Negative (Negative) Urine Urobilinogen <2.0 (<2.0) mg/dL Ur Leukocyte Esterase Negative (Negative) Influenza Type A RNA (Not Detectd) Influenza Type B (PCR) (Not Detectd) Disposition Clinical Impression: Acute bronchitis Disposition: HOME SELF-CARE Condition: Good Instructions: Acute Bronchitis (ED) Additional Instructions: Please use medication as discussed. Please follow-up with family doctor in the next 2 days of symptoms have not improved. Please return to emergency room if the symptoms increase or worsen or for any other concerns. Prescriptions: Azithromycin [Zithromax Z-pack] 0 mg PO DIRECTED #6 tab methylPREDNISolone Dose Pack [Medrol Dose Pack] 4 mg PO DIRECTED #21 package Referrals: Alex Gomez DO [Primary Care Provider] - 1-2 days Time of Disposition: 12:30
[2017-08-05 12:11] LABS: Appearance,Urine Clear (Clear); Bilirubin,Urine Negative (Negative); Blood,Urine Negative (Negative); Color,Urine Yellow; Glucose,Urine (UA) Negative (Negative); Ketones,Urine Negative (Negative); Leukocyte Esterase,Urine Negative (Negative); Nitrite,Urine Negative (Negative); PH, Urine 5.5 (5.0-8.0); Protein,Urine Negative (Negative); Specific Gravity,Urine 1.014 (1.001-1.035); Urobilinogen,Urine <2.0 mg/dL (<2.0)
[2017-08-05 12:43] VITALS: BP 143/81; PULSE 90; TEMP 97.3
== END 2017-08-05 12:41 | disposition home or self-care (01) ==
LOC: EC 09:32
DX: J20.9 Acute bronchitis, unspecified (principal); G40.909 Epilepsy, unspecified, not intractable, without status epilepticus; I10 Essential (primary) hypertension; F41.0 Panic disorder [episodic paroxysmal anxiety]; Z85.41 Personal history of malignant neoplasm of cervix uteri; Z87.891 Personal history of nicotine dependence; Z79.899 Other long term (current) drug therapy; Z88.1 Allergy status to other antibiotic agents; Z88.0 Allergy status to penicillin; Z88.5 Allergy status to narcotic agent; Z88.6 Allergy status to analgesic agent; Z88.8 Allergy status to other drugs, medicaments and biological substances
CPT/HCPCS: 36415; 71046; 80053; 81003; 82550; 82553; 83605; 84484; 85025; 87040; 87502; 93005; 96360; 99284

== ENCOUNTER 2017-08-09 19:25 | Observation (INO) | payer OTHER ==
[2017-08-09] MEDS ORDERED: IPRATROPIUM 0.5 MG/2.5 ML NEBU INHALATION STA (19:48)
[2017-08-09] MEDS ORDERED: ALBUTEROL NEBULIZED 2.5 MG/3 ML INHALATION STA (19:48)
[2017-08-09] MEDS ORDERED: SODIUM CHLORIDE 0.9% 500 ML IV STA (19:48)
[2017-08-09] MEDS ORDERED: methylPREDNISolone SOD SUCCI 125 MG/2 ML VIAL IV STA (19:48)
[2017-08-09] MEDS ORDERED: ONDANSETRON 4 MG/2 ML VIAL IVP STA (19:51)
--- NOTE | 2017-08-09 19:54 | ED ---
General Adult HPI - General Chief complaint: Shortness of Breath Stated complaint: SOB Time Seen by Provider: 08/09/17 19:31 Source: patient, RN notes reviewed, old records reviewed Mode of arrival: ambulatory Limitations: no limitations - History of Present Illness Initial comments: 62-year-old female presents for reevaluation of cough and dyspnea. She was in the emergency department several days ago with these symptoms. She was prescribed antibiotics and steroids, despite this treatment she has failed to improve. No history of asthma or COPD, she was a previous smoker and was exposed to secondhand smoke. States she has had a productive cough and dyspnea which has been worsening over the past several days. She also reports some anterior chest pain with cough. She is having some nausea, no significant vomiting. No abdominal pain or diarrhea. She does report subjective fever and chills. No lower extremity pain or swelling. - Related Data Home Medications Medication Instructions Recorded Confirmed Verapamil [Isoptin] 40 mg PO HS 06/25/16 08/09/17 Brivaracetam [Briviact] 100 mg PO BID 08/12/16 08/09/17 Cyanocobalamin [Vitamin B-12] 500 mcg PO DAILY 08/05/17 08/09/17 Fluticasone Nasal [place] [Flonase 1 spray EA NOSTRIL DAILY PRN 08/05/17 08/09/17 Nasal [place]] Pyridoxine [Vitamin B-6] 50 mg PO DAILY 08/05/17 08/09/17 Riboflavin [Vitamin B-2] 50 mg PO DAILY 08/05/17 08/09/17 Azithromycin [Zithromax Z-pack] See Taper PO DAILY 08/09/17 08/09/17 Desvenlafaxine Succinate [Pristiq 25 mg PO HS 08/09/17 08/09/17 ER] methylPREDNISolone Dose Pack See Taper PO DIRECTED 08/09/17 08/09/17 [Medrol Dose Pack] Allergies Allergy/AdvReac Type Severity Reaction Status Date / Time ciprofloxacin [From Cipro] Allergy Rash/Hives Verified 08/09/17 19:30 ciprofloxacin HCl Allergy Rash/Hives Verified 08/09/17 19:30 [From Cipro] clarithromycin [From Biaxin] Allergy Rash/Hives Verified 08/09/17 19:30 dicyclomine [From Bentyl] Allergy Confusion Verified 08/09/17 19:30 hydrocodone bitartrate Allergy Rash/Hives Verified 08/09/17 19:30 [From Vicodin] hydromorphone HCl Allergy Itching Verified 08/09/17 19:30 [From Dilaudid] levofloxacin [From Levaquin] Allergy Rash/Hives Verified 08/09/17 19:30 lorazepam [From Ativan] Allergy Rash/Hives Verified 08/09/17 19:30 meloxicam [From Mobic] Allergy Rash/Hives Verified 08/09/17 19:30 oxycodone Allergy Rash/Hives Verified 08/09/17 19:30 Penicillins Allergy Swelling Verified 08/09/17 19:30 IN THROAT promethazine HCl Allergy Rash/Hives Verified 08/09/17 19:30 [From Phenergan] propoxyphene napsylate Allergy Rash/Hives Verified 08/09/17 19:30 [From Darvocet-N] tramadol HCl [From Ultram] Allergy Rash/Hives Verified 08/09/17 19:30 Review of Systems ROS Statement: Those systems with pertinent positive or pertinent negative responses have been documented in the HPI. ROS Other: All systems not noted in ROS Statement are negative. Past Medical History Past Medical History: Cancer, Hypertension, Seizure Disorder Additional Past Medical History / Comment(s): Last seizure 10/2016, Chronic Pancreatitis. Hx Kidney Stones, Hx Cervical Cancer. HIATAL HERNIA. History of Any Multi-Drug Resistant Organisms: None Reported Past Surgical History: Appendectomy, Bowel Resection, Cholecystectomy, Hysterectomy Additional Past Surgical History / Comment(s): Surgery on RT Salivary Gland. RT ELBOW NERVE SURG. EGD & COLONOSCOPY, JADEN FUNDLAPLASTY 06/2015, cervicle cancer surgery 1988 Past Anesthesia/Blood Transfusion Reactions: Postoperative Nausea & Vomiting ( PONV) Additional Past Anesthesia/Blood Transfusion Reaction / Comment(s): TAKES LONG TIME TO AWAKEN Past Psychological History: Anxiety, Panic Disorder Smoking Status: Former smoker Past Alcohol Use History: None Reported Past Drug Use History: None Reported - Past Family History Mother Sister(s) Family Medical History: Cancer Additional Family Medical History / Comment(s): COLON CANCER. GRANDFATHER ALSO HAD COLON CANCER Mother Family Medical History: Cancer, Myocardial Infarction ([place]) Father Family Medical History: Hypertension Brother(s) Family Medical History: No Reported History Sister(s) Family Medical History: Cancer Daughter(s) Family Medical History: No Reported History Son(s) Family Medical History: No Reported History General Exam Limitations: no limitations General appearance: alert, in no apparent distress Head exam: Present: atraumatic, normocephalic Eye exam: Present: normal appearance, PERRL, EOMI ENT exam: Present: normal exam Neck exam: Present: normal inspection. Absent: tenderness, meningismus Respiratory exam: Present: respiratory distress, wheezes, prolonged expiratory Cardiovascular Exam: Present: regular rate, normal rhythm GI/Abdominal exam: Present: soft. Absent: distended, tenderness, guarding Extremities exam: Present: normal inspection, normal capillary refill. Absent: pedal edema, calf tenderness Neurological exam: Present: alert, oriented X3, CN II-XII intact. Absent: motor sensory deficit Psychiatric exam: Present: anxious Skin exam: Present: warm, dry, intact. Absent: cyanosis, diaphoretic Course Vital Signs 08/09/17 08/09/17 08/09/17 19:28 20:31 20:58 Temperature 97.9 F Pulse Rate 101 H 84 94 Respiratory 22 Rate Blood Pressure 212/93 O2 Sat by Pulse 97 Oximetry EKG Findings - EKG Comments: EKG Findings:: EKG: Normal sinus rhythm, ventricular rate 96, ND interval 140, QRS duration 82, QTC 459, no ST segment elevation or depression Medical Decision Making - Medical Decision Making 60-year-old female presenting with cough and dyspnea. Patient's symptoms have been ongoing for approximately one week, she has been on antibiotics and steroids as an outpatient, she has failed to improve. Laboratory studies reveal white blood cell count 12.4, hemoglobin 15.0, d-dimer is negative, sodium mildly elevated 146, other electrolytes are within normal limits. Troponin and BNP negative. Influenza negative. Chest x-ray consistent with asthma or bronchitis. Patient does not have a formal diagnosis of asthma or COPD, however she does have significant tobacco use in her history and is presenting as reactive airway. The fact that she has failed to improve with outpatient treatment she will be admitted for further treatment of COPD exacerbation - Lab Data Result diagrams: 08/09/17 19:42 08/09/17 19:42 Lab Results 04/01/18 04/01/18 04/01/18 Range/Units 19:42 19:42 19:42 WBC 12.4 H (3.8-10.6) k/uL RBC 4.63 (3.80-5.40) m/uL Hgb 15.0 (11.4-16.0) gm/dL Hct 41.0 (34.0-46.0) % MCV 88.5 (80.0-100.0) fL MCH 32.3 (25.0-35.0) pg MCHC 36.5 (31.0-37.0) g/dL RDW 12.3 (11.5-15.5) % Plt Count 361 (150-450) k/uL Neutrophils % 76 % Lymphocytes % 17 % Monocytes % 4 % Eosinophils % 1 % Basophils % 0 % Neutrophils # 9.4 H (1.3-7.7) k/uL Lymphocytes # 2.1 (1.0-4.8) k/uL Monocytes # 0.5 (0-1.0) k/uL Eosinophils # 0.2 (0-0.7) k/uL Basophils # 0.0 (0-0.2) k/uL Hyperchromasia Slight PT (9.0-12.0) sec INR (<1.2) APTT (22.0-30.0) sec D-Dimer (<0.60) mg/L FEU Sodium 146 H (137-145) mmol/L Potassium 4.0 (3.5-5.1) mmol/L Chloride 109 H (98-107) mmol/L Carbon Dioxide 22 (22-30) mmol/L Anion Gap 15 mmol/L BUN 17 (7-17) mg/dL Creatinine 0.57 (0.52-1.04) mg/dL Est GFR (CKD-EPI)AfAm >90 (>60 ml/min/1.73 sqM) Est GFR (CKD-EPI)NonAf >90 (>60 ml/min/1.73 sqM) Glucose 115 H (74-99) mg/dL Plasma Lactic Acid Chandu (0.7-2.0) mmol/L Calcium 9.7 (8.4-10.2) mg/dL Magnesium 2.1 (1.6-2.3) mg/dL Total Bilirubin 0.3 (0.2-1.3) mg/dL AST 60 H (14-36) U/L ALT 95 H (9-52) U/L Alkaline Phosphatase 94 (38-126) U/L Total Creatine Kinase 45 (30-135) U/L CK-MB (CK-2) 0.5 (0.0-2.4) ng/mL CK-MB (CK-2) Rel Index 1.1 Troponin I <0.012 (0.000-0.034) ng/mL NT-Pro-B Natriuret Pep pg/mL Total Protein 6.7 (6.3-8.2) g/dL Albumin 4.3 (3.5-5.0) g/dL Influenza Type A RNA (Not Detectd) Influenza Type B (PCR) (Not Detectd) 08/09/17 08/09/17 08/09/17 Range/Units 19:42 19:42 19:42 WBC (3.8-10.6) k/uL RBC (3.80-5.40) m/uL Hgb (11.4-16.0) gm/dL Hct (34.0-46.0) % MCV (80.0-100.0) fL MCH (25.0-35.0) pg MCHC (31.0-37.0) g/dL RDW (11.5-15.5) % Plt Count (150-450) k/uL Neutrophils % % Lymphocytes % % Monocytes % % Eosinophils % % Basophils % % Neutrophils # (1.3-7.7) k/uL Lymphocytes # (1.0-4.8) k/uL Monocytes # (0-1.0) k/uL Eosinophils # (0-0.7) k/uL Basophils # (0-0.2) k/uL Hyperchromasia PT 9.6 (9.0-12.0) sec INR 1.0 (<1.2) APTT 19.4 L (22.0-30.0) sec D-Dimer 0.43 (<0.60) mg/L FEU Sodium (137-145) mmol/L Potassium (3.5-5.1) mmol/L Chloride (98-107) mmol/L Carbon Dioxide (22-30) mmol/L Anion Gap mmol/L BUN (7-17) mg/dL Creatinine (0.52-1.04) mg/dL Est GFR (CKD-EPI)AfAm (>60 ml/min/1.73 sqM) Est GFR (CKD-EPI)NonAf (>60 ml/min/1.73 sqM) Glucose (74-99) mg/dL Plasma Lactic Acid Chandu 2.0 (0.7-2.0) mmol/L Calcium (8.4-10.2) mg/dL Magnesium (1.6-2.3) mg/dL Total Bilirubin (0.2-1.3) mg/dL AST (14-36) U/L ALT (9-52) U/L Alkaline Phosphatase (38-126) U/L Total Creatine Kinase (30-135) U/L CK-MB (CK-2) (0.0-2.4) ng/mL CK-MB (CK-2) Rel Index Troponin I (0.000-0.034) ng/mL NT-Pro-B Natriuret Pep 240 pg/mL Total Protein (6.3-8.2) g/dL Albumin (3.5-5.0) g/dL Influenza Type A RNA (Not Detectd) Influenza Type B (PCR) (Not Detectd) 08/09/17 Range/Units 20:08 WBC (3.8-10.6) k/uL RBC (3.80-5.40) m/uL Hgb (11.4-16.0) gm/dL Hct (34.0-46.0) % MCV (80.0-100.0) fL MCH (25.0-35.0) pg MCHC (31.0-37.0) g/dL RDW (11.5-15.5) % Plt Count (150-450) k/uL Neutrophils % % Lymphocytes % % Monocytes % % Eosinophils % % Basophils % % Neutrophils # (1.3-7.7) k/uL Lymphocytes # (1.0-4.8) k/uL Monocytes # (0-1.0) k/uL Eosinophils # (0-0.7) k/uL Basophils # (0-0.2) k/uL Hyperchromasia PT (9.0-12.0) sec INR (<1.2) APTT (22.0-30.0) sec D-Dimer (<0.60) mg/L FEU Sodium (137-145) mmol/L Potassium (3.5-5.1) mmol/L Chloride (98-107) mmol/L Carbon Dioxide (22-30) mmol/L Anion Gap mmol/L BUN (7-17) mg/dL Creatinine (0.52-1.04) mg/dL Est GFR (CKD-EPI)AfAm (>60 ml/min/1.73 sqM) Est GFR (CKD-EPI)NonAf (>60 ml/min/1.73 sqM) Glucose (74-99) mg/dL Plasma Lactic Acid Chandu (0.7-2.0) mmol/L Calcium (8.4-10.2) mg/dL Magnesium (1.6-2.3) mg/dL Total Bilirubin (0.2-1.3) mg/dL AST (14-36) U/L ALT (9-52) U/L Alkaline Phosphatase (38-126) U/L Total Creatine Kinase (30-135) U/L CK-MB (CK-2) (0.0-2.4) ng/mL CK-MB (CK-2) Rel Index Troponin I (0.000-0.034) ng/mL NT-Pro-B Natriuret Pep pg/mL Total Protein (6.3-8.2) g/dL Albumin (3.5-5.0) g/dL Influenza Type A RNA Not Detected (Not Detectd) Influenza Type B (PCR) Not Detected (Not Detectd) Disposition Clinical Impression: Acute exacerbation of chronic obstructive airways disease, Acute bronchitis Disposition: ADMITTED IP TO THIS [facility] Condition: Stable Referrals: Alex Gomez DO [Primary Care Provider] - 1-2 days Decision to Admit Reason: Admit from EC Decision Date: 08/09/17 Decision Time: 21:31
[2017-08-09 20:03] LABS: Basophils % (A) 0 %; Eosinophils # (A) 0.2 k/uL (0-0.7); Eosinophils % (A) 1 %; Hyperchromasia Slight; Lymphocytes # (A) 2.1 k/uL (1.0-4.8); Lymphocytes % (A) 17 %; MCH 32.3 pg (25.0-35.0); MCHC 36.5 g/dL (31.0-37.0); MCV 88.5 fL (80.0-100.0); Mean Platelet Volume 6.7; Monocytes # (A) 0.5 k/uL (0-1.0); Monocytes % (A) 4 %; Neutrophils # (A) 9.4 k/uL (1.3-7.7); Neutrophils % (A) 76 %; Platelet Count 361 k/uL (150-450); RBC 4.63 m/uL (3.80-5.40); RDW 12.3 % (11.5-15.5); WBC 12.4 k/uL (3.8-10.6)
[2017-08-09 20:11] LABS: ALT 95 U/L (9-52); AST 60 U/L (14-36); Albumin 4.3 g/dL (3.5-5.0); Alkaline Phosphatase 94 U/L (38-126); Anion Gap 15 mmol/L; Blood Urea Nitrogen 17 mg/dL (7-17); Calcium 9.7 mg/dL (8.4-10.2); Carbon Dioxide 22 mmol/L (22-30); Chloride 109 mmol/L (98-107); Glucose 115 mg/dL (74-99); Magnesium 2.1 mg/dL (1.6-2.3); Sodium 146 mmol/L (137-145); Total Bilirubin 0.3 mg/dL (0.2-1.3); Total Protein 6.7 g/dL (6.3-8.2)
--- NOTE | 2017-08-09 20:21 | XR ---
EXAMINATION TYPE: XR chest 2V DATE OF EXAM: 08/09/2017 COMPARISON: 08/05/2017 HISTORY: 62-year-old female shortness of breath, difficulty breathing TECHNIQUE: AP and lateral views FINDINGS: Heart normal size. Aorta and pulmonary vasculature within normal limits. Mild peribronchial cuffing i s similar to prior. Some strandy atelectasis mid lungs. No consolidation or pleural effusion. IMPRESSION: Similar mild peribronchial cuffing could represent asthma or bronchitis. Otherwise, no acute cardiopu lmonary process.
[2017-08-09 20:22] LABS: Creatine Kinase 45 U/L (30-135)
[2017-08-09 20:24] LABS: D-Dimer 0.43 mg/L FEU (<0.60); Prothrombin Time 9.6 sec (9.0-12.0)
[2017-08-09 20:28] LABS: Partial Thromboplastin Time 19.4 sec (22.0-30.0)
[2017-08-09 20:35] LABS: Creatine Kinase MB 0.5 ng/mL (0.0-2.4); Troponin I <0.012 ng/mL (0.000-0.034)
[2017-08-09] MEDS ORDERED: IPRATROPIUM-ALBUTEROL 3 ML NEB INHALATION PRN (21:32)
[2017-08-09] MEDS ORDERED: ALBUTEROL NEBULIZED 2.5 MG/3 ML INHALATION PRN (21:34)
[2017-08-09] MEDS ORDERED: ACETAMINOPHEN TAB 325 MG TAB PO PRN (23:05)
[2017-08-09] MEDS ORDERED: HYDROcodone/APAP 5-325MG 1 EACH TAB PO PRN (23:06)
[2017-08-09] MEDS: methylPREDNISolone SOD SUCCI 125 MG/2 ML VIAL IV SCH (23:42)
[2017-08-10] MEDS: guaiFENesin SYRUP 100MG/5ML 200 MG/10 ML CUP PO PRN ×2 (00:02→15:22)
[2017-08-10] MEDS ORDERED: RX INFO: IV CONTRAST WAS GIVEN 1 EACH MISC MISCELLANE PRN (00:12)
[2017-08-10] MEDS ORDERED: NALOXONE 0.4 MG/ML 1 ML VIAL IV PRN (00:14)
--- NOTE | 2017-08-10 00:23 | P.HPIM ---
History of Present Illness H&P Date: 08/10/17 Chief Complaint: sob Admitted to the hospital for shortness of breath that has been ongoing for the last few days the patient has been treated as an outpatient for COPD exacerbation without any significant improvement continued to be short of breath complained also of some chest pain and some right upper quadrant abdominal pain review of systems and systems as reviewed all negative and positive findings as per hpi Past Medical History: Cancer, Hypertension, Seizure Disorder Additional Past Medical History / Comment(s): Last seizure 10/2016, Chronic Pancreatitis. Hx Kidney Stones, Hx Cervical Cancer. HIATAL HERNIA. History of Any Multi-Drug Resistant Organisms: None Reported Past Surgical History: Appendectomy, Bowel Resection, Cholecystectomy, Hysterectomy Additional Past Surgical History / Comment(s): Surgery on RT Salivary Gland. RT ELBOW NERVE SURG. EGD & COLONOSCOPY, JADEN FUNDLAPLASTY 06/2015, cervicle cancer surgery 1988 Past Anesthesia/Blood Transfusion Reactions: Postoperative Nausea & Vomiting ( PONV) Additional Past Anesthesia/Blood Transfusion Reaction / Comment(s): TAKES LONG TIME TO AWAKEN Past Psychological History: Anxiety, Panic Disorder Smoking Status: Former smoker Past Alcohol Use History: None Reported Past Drug Use History: None Reported Constitutional: No acute distress, conversant, pleasant Eyes: Anicteric sclerae, moist conjunctiva, no lid-lag PERRLA ENMT: NC/AT Oropharynx clear, no erythema, exudates Neck: Supple, FROM, no masses, or JVD No carotid bruits No thyromegaly Lungs: Tight bilaterally spastic Cardiovascular: Heart regular in rate and rhythm, No murmurs, gallops, or rubs No peripheral edema Abdominal: Soft Nontender, no guarding, rebound or rigidity Abdomen moving with respiration Normoactive bowel sounds No hepatomegaly, No splenomegaly No palpable mass No abdominal wall hernia noted Skin: Normal temperature, tone, texture, turgor No induration No subcutaneous nodules No rash, lesions No ulcers Extremities: No digital cyanosis No clubbing Pedal pulses intact and symmetrical Radial pulses intact and symmetrical Normal gait and station No calf tenderness Psychiatric:Alert and oriented to person, place and time Appropriate affect Intact judgement Neuro: Muscles Strength 5/5 in all 4 extremities Sensation to light touch grossly present throughout Cranial nerves II-XII grossly intact No focal sensory deficits Laboratory Results - last 24 hr 08/09/17 08/09/17 08/09/17 19:42 19:42 19:42 WBC 12.4 H RBC 4.63 Hgb 15.0 Hct 41.0 MCV 88.5 MCH 32.3 MCHC 36.5 RDW 12.3 Plt Count 361 Neutrophils % 76 Lymphocytes % 17 Monocytes % 4 Eosinophils % 1 Basophils % 0 Neutrophils # 9.4 H Lymphocytes # 2.1 Monocytes # 0.5 Eosinophils # 0.2 Basophils # 0.0 Hyperchromasia Slight PT INR APTT D-Dimer Sodium 146 H Potassium 4.0 Chloride 109 H Carbon Dioxide 22 Anion Gap 15 BUN 17 Creatinine 0.57 Est GFR (CKD-EPI)AfAm >90 Est GFR (CKD-EPI)NonAf >90 Glucose 115 H Plasma Lactic Acid Chandu Calcium 9.7 Magnesium 2.1 Total Bilirubin 0.3 AST 60 H ALT 95 H Alkaline Phosphatase 94 Total Creatine Kinase 45 CK-MB (CK-2) 0.5 CK-MB (CK-2) Rel Index 1.1 Troponin I <0.012 NT-Pro-B Natriuret Pep Total Protein 6.7 Albumin 4.3 Influenza Type A RNA Influenza Type B (PCR) 08/09/17 08/09/17 08/09/17 19:42 19:42 19:42 WBC RBC Hgb Hct MCV MCH MCHC RDW Plt Count Neutrophils % Lymphocytes % Monocytes % Eosinophils % Basophils % Neutrophils # Lymphocytes # Monocytes # Eosinophils # Basophils # Hyperchromasia PT 9.6 INR 1.0 APTT 19.4 L D-Dimer 0.43 Sodium Potassium Chloride Carbon Dioxide Anion Gap BUN Creatinine Est GFR (CKD-EPI)AfAm Est GFR (CKD-EPI)NonAf Glucose Plasma Lactic Acid Chandu 2.0 Calcium Magnesium Total Bilirubin AST ALT Alkaline Phosphatase Total Creatine Kinase CK-MB (CK-2) CK-MB (CK-2) Rel Index Troponin I NT-Pro-B Natriuret Pep 240 Total Protein Albumin Influenza Type A RNA Influenza Type B (PCR) 08/09/17 20:08 WBC RBC Hgb Hct MCV MCH MCHC RDW Plt Count Neutrophils % Lymphocytes % Monocytes % Eosinophils % Basophils % Neutrophils # Lymphocytes # Monocytes # Eosinophils # Basophils # Hyperchromasia PT INR APTT D-Dimer Sodium Potassium Chloride Carbon Dioxide Anion Gap BUN Creatinine Est GFR (CKD-EPI)AfAm Est GFR (CKD-EPI)NonAf Glucose Plasma Lactic Acid Chandu Calcium Magnesium Total Bilirubin AST ALT Alkaline Phosphatase Total Creatine Kinase CK-MB (CK-2) CK-MB (CK-2) Rel Index Troponin I NT-Pro-B Natriuret Pep Total Protein Albumin Influenza Type A RNA Not Detected Influenza Type B (PCR) Not Detected Vital Signs 08/09/17 08/09/17 08/09/17 19:28 20:31 20:58 Temperature 97.9 F Pulse Rate 101 H 84 94 Pulse Rate [ Right] Respiratory 22 Rate Blood Pressure 212/93 Blood Pressure [Left Arm] O2 Sat by Pulse 97 Oximetry 08/09/17 08/09/17 21:38 23:00 Temperature 98.0 F Pulse Rate 99 Pulse Rate [ 83 Right] Respiratory 16 18 Rate Blood Pressure 136/67 Blood Pressure 161/76 [Left Arm] O2 Sat by Pulse 98 95 Oximetry Past Medical History: Cancer, Hypertension, Seizure Disorder Additional Past Medical History / Comment(s): Last seizure 10/2016, Chronic Pancreatitis. Hx Kidney Stones, Hx Cervical Cancer. HIATAL HERNIA. History of Any Multi-Drug Resistant Organisms: None Reported Past Surgical History: Appendectomy, Bowel Resection, Cholecystectomy, Hysterectomy Additional Past Surgical History / Comment(s): Surgery on RT Salivary Gland. RT ELBOW NERVE SURG. EGD & COLONOSCOPY, JADEN FUNDLAPLASTY 06/2015, cervicle cancer surgery 1988 Past Anesthesia/Blood Transfusion Reactions: Postoperative Nausea & Vomiting ( PONV) Additional Past Anesthesia/Blood Transfusion Reaction / Comment(s): TAKES LONG TIME TO AWAKEN Past Psychological History: Anxiety, Panic Disorder Smoking Status: Former smoker Past Alcohol Use History: None Reported Past Drug Use History: None Reported Assessment and plan COPD exacerbation that failed outpatient therapy will continue patient on IV sediment all and tympanic antibiotics Pleuritic chest pain we'll check computed tomography scan of the lungs to rule out PE Right upper quadrant abdominal pain we'll check computed tomography scan of the abdomen If persists consider ultrasound of the abdomen History of seizures no evidence of any seizure activity at this time continue home medications DVT and GI prophylaxis Admit the patient to regular medical floor Past Medical History Past Medical History: Cancer, Hypertension, Seizure Disorder Additional Past Medical History / Comment(s): Last seizure 10/2016, Chronic Pancreatitis. Hx Kidney Stones, Hx Cervical Cancer. HIATAL HERNIA. History of Any Multi-Drug Resistant Organisms: None Reported Past Surgical History: Appendectomy, Bowel Resection, Cholecystectomy, Hysterectomy Additional Past Surgical History / Comment(s): Surgery on RT Salivary Gland. RT ELBOW NERVE SURG. EGD & COLONOSCOPY, JADEN FUNDLAPLASTY 06/2015, cervicle cancer surgery 1988 Past Anesthesia/Blood Transfusion Reactions: Postoperative Nausea & Vomiting ( PONV) Additional Past Anesthesia/Blood Transfusion Reaction / Comment(s): TAKES LONG TIME TO AWAKEN Past Psychological History: Anxiety, Panic Disorder Additional Psychological History / Comment(s): PT STATED SHE SEE'S A THERAPIST. CURRENTLY DENIES ANY THOUGHTS OF HARMING SELF NO HOPELESSNESS FELINGS. Smoking Status: Former smoker Past Alcohol Use History: None Reported Additional Past Alcohol Use History / Comment(s): SMOKED 20 YEARS, 5 PPD. QUIT 1998 Past Drug Use History: None Reported - Past Family History Mother Sister(s) Family Medical History: Cancer Additional Family Medical History / Comment(s): COLON CANCER. GRANDFATHER ALSO HAD COLON CANCER Mother Family Medical History: Cancer, Myocardial Infarction ([place]) Father Family Medical History: Hypertension Brother(s) Family Medical History: No Reported History Sister(s) Family Medical History: Cancer Daughter(s) Family Medical History: No Reported History Son(s) Family Medical History: No Reported History Medications and Allergies Home Medications Medication Instructions Recorded Confirmed Type Verapamil [Isoptin] 40 mg PO HS 06/25/16 08/09/17 History Brivaracetam [Briviact] 100 mg PO BID 08/12/16 08/09/17 History Cyanocobalamin [Vitamin B-12] 500 mcg PO DAILY 08/05/17 08/09/17 History Fluticasone Nasal [place] [Flonase 1 spray EA NOSTRIL DAILY PRN 08/05/17 08/09/17 History Nasal [place]] Pyridoxine [Vitamin B-6] 50 mg PO DAILY 08/05/17 08/09/17 History Riboflavin [Vitamin B-2] 50 mg PO DAILY 08/05/17 08/09/17 History Azithromycin [Zithromax Z-pack] See Taper PO DAILY 08/09/17 08/09/17 History Desvenlafaxine Succinate [Pristiq 25 mg PO HS 08/09/17 08/09/17 History ER] methylPREDNISolone Dose Pack See Taper PO DIRECTED 08/09/17 08/09/17 History [Medrol Dose Pack] Allergies Allergy/AdvReac Type Severity Reaction Status Date / Time ciprofloxacin [From Cipro] Allergy Rash/Hives Verified 08/09/17 19:30 ciprofloxacin HCl Allergy Rash/Hives Verified 08/09/17 19:30 [From Cipro] clarithromycin [From Biaxin] Allergy Rash/Hives Verified 08/09/17 19:30 dicyclomine [From Bentyl] Allergy Confusion Verified 08/09/17 19:30 hydrocodone bitartrate Allergy Rash/Hives Verified 08/09/17 19:30 [From Vicodin] hydromorphone HCl Allergy Itching Verified 08/09/17 19:30 [From Dilaudid] levofloxacin [From Levaquin] Allergy Rash/Hives Verified 08/09/17 19:30 lorazepam [From Ativan] Allergy Rash/Hives Verified 08/09/17 19:30 meloxicam [From Mobic] Allergy Rash/Hives Verified 08/09/17 19:30 oxycodone Allergy Rash/Hives Verified 08/09/17 19:30 Penicillins Allergy Swelling Verified 08/09/17 19:30 IN THROAT promethazine HCl Allergy Rash/Hives Verified 08/09/17 19:30 [From Phenergan] propoxyphene napsylate Allergy Rash/Hives Verified 08/09/17 19:30 [From Darvocet-N] tramadol HCl [From Ultram] Allergy Rash/Hives Verified 08/09/17 19:30 Physical Exam Vitals: Vital Signs Temp Pulse Pulse Resp BP BP Pulse Ox 08/09/17 23:00 98.0 F 83 18 161/76 95 08/09/17 21:38 99 16 136/67 98 08/09/17 20:58 94 08/09/17 20:31 84 08/09/17 19:28 97.9 F 101 H 22 212/93 97 Intake and Output 08/09/17 08/09/17 08/10/17 14:59 22:59 06:59 Other: Weight 64.864 kg Results CBC & Chem 7: 08/09/17 19:42 08/09/17 19:42 Labs: Abnormal Lab Results - Last 24 Hours (Table) 08/09/17 08/09/17 08/09/17 Range/Units 19:42 19:42 19:42 WBC 12.4 H (3.8-10.6) k/uL Neutrophils # 9.4 H (1.3-7.7) k/uL APTT 19.4 L (22.0-30.0) sec Sodium 146 H (137-145) mmol/L Chloride 109 H (98-107) mmol/L Glucose 115 H (74-99) mg/dL AST 60 H (14-36) U/L ALT 95 H (9-52) U/L Thrombosis Risk Factor Assmnt - Choose All That Apply Each Factor Represents 1 point: Obesity (BMI >25), Serious lung disease incl. pneumonia (< 1month) Each Risk Factor Represents 2 Points: Age 61-74 years Thrombosis Risk Factor Assessment Total Risk Factor Score: 4 Thrombosis Risk Factor Assessment Level: Moderate Risk
[2017-08-10] MEDS: methylPREDNISolone SOD SUCCI 125 MG/2 ML VIAL IV SCH ×2 (05:05→13:20)
[2017-08-10 07:28] LABS: Glucose,Whole Blood 139 mg/dL (75-99)
[2017-08-10] MEDS: IPRATROPIUM-ALBUTEROL 3 ML NEB INHALATION SCH ×4 (07:50→22:53)
[2017-08-10] MEDS ORDERED: HEPARIN SODIUM,PORCINE 5,000 UNIT/ML 1 ML VIAL SQ SCH (08:00)
[2017-08-10 08:02] LABS: Basophils % (A) 0 %; Eosinophils # (A) 0.1 k/uL (0-0.7); Eosinophils % (A) 1 %; HCT 40.4 % (34.0-46.0); Lymphocytes # (A) 0.9 k/uL (1.0-4.8); Lymphocytes % (A) 8 %; MCH 32.9 pg (25.0-35.0); MCHC 34.6 g/dL (31.0-37.0); Mean Platelet Volume 7.1; Monocytes # (A) 0.1 k/uL (0-1.0); Monocytes % (A) 1 %; Neutrophils # (A) 10.1 k/uL (1.3-7.7); Neutrophils % (A) 90 %; Platelet Count 297 k/uL (150-450); RBC 4.25 m/uL (3.80-5.40); RDW 12.3 % (11.5-15.5); WBC 11.3 k/uL (3.8-10.6)
[2017-08-10 08:06] LABS: ALT 81 U/L (9-52); AST 48 U/L (14-36); Alkaline Phosphatase 91 U/L (38-126); Anion Gap 18 mmol/L; Blood Urea Nitrogen 13 mg/dL (7-17); Calcium 9.3 mg/dL (8.4-10.2); Carbon Dioxide 18 mmol/L (22-30); Chloride 106 mmol/L (98-107); Glucose 141 mg/dL (74-99); Potassium 3.9 mmol/L (3.5-5.1); Sodium 142 mmol/L (137-145); Total Bilirubin 0.3 mg/dL (0.2-1.3); Total Protein 6.1 g/dL (6.3-8.2)
[2017-08-10 08:08] LABS: MCV 95.1 fL (80.0-100.0)
[2017-08-10] MEDS: INSULIN ASPART 100 UNIT/ML 1 ML 10 ML VIAL SQ SCH ×4 (08:41→21:04)
[2017-08-10] MEDS: PANTOPRAZOLE 40 MG TABLET PO SCH (08:41)
[2017-08-10] MEDS: AZITHROMYCIN 500 MG in SODIUM CHLORIDE 0.9% 250 ML IVPB SCH (08:41)
[2017-08-10] MEDS ORDERED: BRIVARACETAM 100 MG PO SCH (09:00)
[2017-08-10] MEDS: BRIVARACETAM 100 MG PO SCH ×2 (10:30→21:04)
[2017-08-10 11:25] LABS: Glucose,Whole Blood 120 mg/dL (75-99)
--- NOTE | 2017-08-10 11:35 | CT ---
EXAMINATION TYPE: CT angio chest DATE OF EXAM: 08/10/2017 COMPARISON: Chest radiograph of the same date HISTORY: Chest pain, R/O PE CT DLP: 401 mGycm. Automated Exposure Control for Dose Reduction was Utilized. CONTRAST: CTA scan of the thorax is performed with IV Contrast, patient injected with 100 ml mL of Isovue 370, pulmonary embolism protocol. MIP Images are created on CT scanner and reviewed. FINDINGS: LUNGS: Mild centrilobular emphysematous changes are most pronounced at the lung apices. Minimal bibas ilar subsegmental dependent atelectasis is also noted with pleural parenchymal family scarring at the right lung base. No focal consolidation is noted. The lungs are grossly clear, there is no concernin g parenchymal mass or nodule identified. There is no pleural effusion or pneumothorax seen. The tr acheobronchial tree is patent. MEDIASTINUM: There is satisfactory enhancement of the pulmonary artery and its branches, there is no CT evidence for pulmonary embolism. There are no greater than 1 cm hilar or mediastinal lymph nodes. No cardiomegaly or pericardial effusion is seen. OTHER: Small hiatal hernia is incidentally identified. Remainder the visualized portions of the upper abdomen are discussed in the CT abdomen and pelvis dictation the same date. Minimal degenerative tyler nges of the thoracic spine are noted IMPRESSION: 1. No evidence of pulmonary embolus. 2. Small hiatal hernia. 3. Mild centrilobular emphysema and bibasilar subsegmental atelectasis.
[2017-08-10] MEDS ORDERED: ALPRAZolam 0.5 MG TAB PO PRN (11:42)
--- NOTE | 2017-08-10 11:45 | CT ---
EXAMINATION TYPE: CT abdomen pelvis wo con DATE OF EXAM: 08/10/2017 COMPARISON: 01/31/2017 HISTORY: Abdominal pain CT DLP: 778 mGycm Automated exposure control for dose reduction was used. TECHNIQUE: Helical acquisition of images was performed from the lung bases through the pelvis. FINDINGS: LUNG BASES: Lungs are discussed in the CT thorax dictation of the same date LIVER/GB: Gallbladder surgically absent. Unenhanced liver is unremarkable in morphology. PANCREAS: No significant abnormality is seen. SPLEEN: No splenomegaly. ADRENALS: No thickening or nodularity. KIDNEYS: No significant abnormality is seen. No hydronephrosis or nephrolithiasis. FREE AIR: No free air is visualized ADENOPATHY: No greater than 1 cm short axis nodes are seen within the abdomen or pelvis. URINARY BLADDER: No significant abnormality is seen. OSSEOUS STRUCTURES: Nonspecific sclerotic lesion is seen within the right acetabulum, unchanged from the prior. BOWEL: There is a small hiatal hernia with postsurgical changes at the gastroesophageal junction. An astomotic site is seen in the distal sigmoid colon with circumferential minimal thickening just dista l to the anastomotic site, likely due to incomplete distention. No proximal strictures seen. Few colo dulce scattered diverticula are noted without pericolonic fat stranding. No evidence of obstruction thr oughout the bowel. IMPRESSION: 1. NO ACUTE INTRA-ABDOMINAL PROCESS. 2. SMALL HIATAL HERNIA POST SURGICAL CHANGES AT THE GASTROESOPHAGEAL JUNCTION. 3. COLONIC DIVERTICULOSIS WITHOUT EVIDENCE OF DIVERTICULITIS.
--- NOTE | 2017-08-10 14:30 | P.PN ---
Subjective Progress Note Date: 08/10/17 Principal diagnosis: Shortness of breath Patient is feeling better today, everything is better, no chest pain. Still having cough. No fevers or chills. Objective - Vital Signs Vital signs: Vital Signs Temp 98.3 F 08/10/17 07:00 Pulse 122 H 08/10/17 11:37 Resp 18 08/10/17 08:00 BP 181/93 08/10/17 08:00 Pulse Ox 98 08/10/17 08:00 Intake & Output 08/09/17 08/10/17 08/10/17 18:59 06:59 18:59 Weight 64.864 kg Other: Voiding Method Toilet # Voids 2 - Exam Constitutional: No acute distress, conversant, pleasant Eyes:Anicteric sclerae, moist conjunctiva, no lid-lag, PERRLA, ENMT: Oropharynx clear, no erythema, exudates Neck: Supple, FROM, no masses, or JVD, No carotid bruits, No thyromegaly Lungs: Minimal bilateral wheezing, Clear to percussion, Normal respiratory effort, no accessory muscle use Cardiovascular: Tachycardic, regular, No murmurs, gallops, or rubs, No peripheral edema Abdominal: Soft, Nontender, no guarding, rebound or rigidity, Normoactive bowel sounds, No hepatomegaly, No splenomegaly, No palpable mass Skin: Normal temperature, tone, texture, turgor, no induration, No subcutaneous nodules, No rash, lesions, No ulcers Extremities: No digital cyanosis, No clubbing, Pedal pulses intact and symmetrical, Radial pulses intact and symmetrical, No calf tenderness Psychiatric: Alert and oriented to person, place and time, appropriate affect, intact judgement Neuro: Muscles Strength 5/5 in all 4 extremities, Sensation to light touch grossly present throughout, Cranial nerves II-XII grossly intact, no focal sensory deficits - Labs CBC & Chem 7: 08/10/17 07:00 08/10/17 07:00 Labs: Abnormal Lab Results - Last 24 Hours (Table) 08/09/17 08/09/17 08/09/17 Range/Units 19:42 19:42 19:42 WBC 12.4 H (3.8-10.6) k/uL Neutrophils # 9.4 H (1.3-7.7) k/uL Lymphocytes # (1.0-4.8) k/uL APTT 19.4 L (22.0-30.0) sec Sodium 146 H (137-145) mmol/L Chloride 109 H (98-107) mmol/L Carbon Dioxide (22-30) mmol/L Creatinine (0.52-1.04) mg/dL Glucose 115 H (74-99) mg/dL POC Glucose (mg/dL) (75-99) mg/dL AST 60 H (14-36) U/L ALT 95 H (9-52) U/L Troponin I (0.000-0.034) ng/mL Total Protein (6.3-8.2) g/dL 08/10/17 08/10/17 08/10/17 Range/Units 07:00 07:00 07:26 WBC 11.3 H (3.8-10.6) k/uL Neutrophils # 10.1 H (1.3-7.7) k/uL Lymphocytes # 0.9 L (1.0-4.8) k/uL APTT (22.0-30.0) sec Sodium (137-145) mmol/L Chloride (98-107) mmol/L Carbon Dioxide 18 L (22-30) mmol/L Creatinine 0.47 L (0.52-1.04) mg/dL Glucose 141 H (74-99) mg/dL POC Glucose (mg/dL) 139 H (75-99) mg/dL AST 48 H (14-36) U/L ALT 81 H (9-52) U/L Troponin I (0.000-0.034) ng/mL Total Protein 6.1 L (6.3-8.2) g/dL 08/10/17 08/10/17 Range/Units 11:24 13:09 WBC (3.8-10.6) k/uL Neutrophils # (1.3-7.7) k/uL Lymphocytes # (1.0-4.8) k/uL APTT (22.0-30.0) sec Sodium (137-145) mmol/L Chloride (98-107) mmol/L Carbon Dioxide (22-30) mmol/L Creatinine (0.52-1.04) mg/dL Glucose (74-99) mg/dL POC Glucose (mg/dL) 120 H (75-99) mg/dL AST (14-36) U/L ALT (9-52) U/L Troponin I 0.044 H* (0.000-0.034) ng/mL Total Protein (6.3-8.2) g/dL Assessment and Plan Plan: #1 COPD exacerbation: Failed outpatient therapy Continue azithromycin, steroids and DuoNeb. Computed tomography scan of the abdomen/pelvis, and chest reviewed #2 Sinus tachycardia/elevated troponins Acute coronary event is in the differential Consult cardiology Aspirin, Lovenox therapeutic dose, start metoprolol #3 Right upper quadrant abdominal pain CT abdomen and pelvis reviewed, no acute abnormality Continue to monitor #4 History of seizures/essential hypertension Stable Resume home medications Anticipated date of discharge: 08/12. Changed to inpatient
[2017-08-10] MEDS: ASPIRIN 325 MG TAB PO SCH (15:16)
[2017-08-10] MEDS: ENOXAPARIN 60 MG/0.6 ML SYRINGE SQ SCH ×2 (15:16→21:04)
[2017-08-10] MEDS: DIAZEPAM 5 MG TAB PO PRN (15:16)
[2017-08-10] MEDS: METOPROLOL TARTRATE 12.5 MG TAB PO SCH ×2 (15:17→21:52)
[2017-08-10 17:23] LABS: Glucose,Whole Blood 134 mg/dL (75-99)
[2017-08-10] MEDS: methylPREDNISolone SOD SUCCI 40 MG/ML 1 ML VIAL IV SCH ×2 (18:10→22:10)
--- NOTE | 2017-08-10 19:24 | P.CRDCN ---
History of Present Illness History of present illness: Please see full consultation Patient complaining of shortness of breath cough fever for the last 7-10 days. Was in the emergency room about a week back and was treated with antibiotics and steroids but she has not improved. Her shortness of breath became worse and she was experiencing chest discomfort midsternal and she came to the ER once again EKG shows sinus tachycardia. Examination of the lung is consistent with bronchitis No evidence of pulmonary was him on computed tomography scan ECG shows 0.5-[address] depressions upsloping sinus tachycardia 2 troponins are normal Glucose elevated Abnormal LFTs BNP 240 Impression COPD exacerbation Shortness of breath Midsternal chest discomfort Normal cardiac enzymes hypertension Chronic pancreatitis Seizure disorder Past history of smoking Long list of ALLERGIES including ciprofloxacin and Biaxin levofloxacin penicillin Unsure why she takes verapamil 40 mg at night Plan Management of COPD/orchitis admitting physicians 2-D echo and Doppler study to assess cardiac structure and function Lipid panel TSH Telemetry monitoring Outpatient follow-up with Dr. Ascencio in 1-2 weeks Past Medical History Past Medical History: Cancer, Hypertension, Seizure Disorder Additional Past Medical History / Comment(s): Last seizure 10/2016, Chronic Pancreatitis. Hx Kidney Stones, Hx Cervical Cancer. HIATAL HERNIA. History of Any Multi-Drug Resistant Organisms: None Reported Past Surgical History: Appendectomy, Bowel Resection, Cholecystectomy, Hysterectomy Additional Past Surgical History / Comment(s): Surgery on RT Salivary Gland. RT ELBOW NERVE SURG. EGD & COLONOSCOPY, JADEN FUNDLAPLASTY 06/2015, cervicle cancer surgery 1988 Past Anesthesia/Blood Transfusion Reactions: Postoperative Nausea & Vomiting ( PONV) Additional Past Anesthesia/Blood Transfusion Reaction / Comment(s): TAKES LONG TIME TO AWAKEN Past Psychological History: Anxiety, Panic Disorder Additional Psychological History / Comment(s): PT STATED SHE SEE'S A THERAPIST. CURRENTLY DENIES ANY THOUGHTS OF HARMING SELF NO HOPELESSNESS FELINGS. Smoking Status: Former smoker Past Alcohol Use History: None Reported Additional Past Alcohol Use History / Comment(s): SMOKED 20 YEARS, 5 PPD. QUIT 1998 Past Drug Use History: None Reported - Past Family History Mother Sister(s) Family Medical History: Cancer Additional Family Medical History / Comment(s): COLON CANCER. GRANDFATHER ALSO HAD COLON CANCER Mother Family Medical History: Cancer, Myocardial Infarction (NE) Father Family Medical History: Hypertension Brother(s) Family Medical History: No Reported History Sister(s) Family Medical History: Cancer Daughter(s) Family Medical History: No Reported History Son(s) Family Medical History: No Reported History Medications and Allergies Home Medications Medication Instructions Recorded Confirmed Type Verapamil [Isoptin] 40 mg PO HS 06/25/16 08/09/17 History Brivaracetam [Briviact] 100 mg PO BID 08/12/16 08/09/17 History Cyanocobalamin [Vitamin B-12] 500 mcg PO DAILY 08/05/17 08/09/17 History Fluticasone Nasal [place] [Flonase 1 spray EA NOSTRIL DAILY PRN 08/05/17 08/09/17 History Nasal [place]] Pyridoxine [Vitamin B-6] 50 mg PO DAILY 08/05/17 08/09/17 History Riboflavin [Vitamin B-2] 50 mg PO DAILY 08/05/17 08/09/17 History Azithromycin [Zithromax Z-pack] See Taper PO DAILY 08/09/17 08/09/17 History Desvenlafaxine Succinate [Pristiq] 25 mg PO HS 08/09/17 08/09/17 History methylPREDNISolone Dose Pack See Taper PO DIRECTED 08/09/17 08/09/17 History [Medrol Dose Pack] Acetaminophen Tab [Tylenol] 650 mg PO Q4HR PRN tab 08/10/17 Rx Albuterol Sulfate [Proair Hfa] 1 - 2 puff INHALATION Q6HR PRN #1 08/10/17 Rx inhaler Doxycycline Hyclate 100 mg PO BID 5 Days #10 tab 08/10/17 Rx guaiFENesin SYRUP 100MG/5ML 200 mg PO Q4H PRN #20 cup 08/10/17 Rx [Robitussin] Allergies Allergy/AdvReac Type Severity Reaction Status Date / Time ciprofloxacin [From Cipro] Allergy Rash/Hives Verified 08/09/17 19:30 ciprofloxacin HCl Allergy Rash/Hives Verified 08/09/17 19:30 [From Cipro] clarithromycin [From Biaxin] Allergy Rash/Hives Verified 08/09/17 19:30 dicyclomine [From Bentyl] Allergy Confusion Verified 08/09/17 19:30 hydrocodone bitartrate Allergy Rash/Hives Verified 08/09/17 19:30 [From Vicodin] hydromorphone HCl Allergy Itching Verified 08/09/17 19:30 [From Dilaudid] levofloxacin [From Levaquin] Allergy Rash/Hives Verified 08/09/17 19:30 lorazepam [From Ativan] Allergy Rash/Hives Verified 08/09/17 19:30 meloxicam [From Mobic] Allergy Rash/Hives Verified 08/09/17 19:30 oxycodone Allergy Rash/Hives Verified 08/09/17 19:30 Penicillins Allergy Swelling Verified 08/09/17 19:30 IN THROAT promethazine HCl Allergy Rash/Hives Verified 08/09/17 19:30 [From Phenergan] propoxyphene napsylate Allergy Rash/Hives Verified 08/09/17 19:30 [From Darvocet-N] tramadol HCl [From Ultram] Allergy Rash/Hives Verified 08/09/17 19:30 Physical Exam Vitals: Vital Signs Temp Pulse Pulse Resp BP BP Pulse Ox 08/10/17 15:02 116 H 08/10/17 15:00 98.3 F 119 H 18 175/77 96 08/10/17 14:53 127 H 08/10/17 11:37 122 H 08/10/17 11:22 118 H 08/10/17 08:00 92 130 H 18 181/93 98 08/10/17 07:50 76 08/10/17 07:00 98.3 F 121 H 18 157/74 96 08/10/17 02:48 88 08/10/17 02:40 84 08/09/17 23:00 98.0 F 83 18 161/76 95 08/09/17 21:38 99 16 136/67 98 08/09/17 20:58 94 08/09/17 20:31 84 08/09/17 19:28 97.9 F 101 H 22 212/93 97 Intake and Output 08/10/17 08/10/17 08/10/17 06:59 14:59 22:59 Intake Total 250 Balance 250 Intake: Intake, IV Titration 250 Amount Azithromycin 500 mg In 250 Sodium Chloride 0.9% 250 ml @ 125 mls/hr IVPB DAILY [facility] Rx#:[id number] Other: Voiding Method Toilet # Voids 2 4 Results 08/10/17 07:00 08/10/17 07:00 Cardiac Enzymes 08/09/17 08/09/17 08/10/17 Range/Units 19:42 19:42 07:00 AST 60 H 48 H (14-36) U/L CK-MB (CK-2) 0.5 (0.0-2.4) ng/mL Troponin I <0.012 (0.000-0.034) ng/mL 08/10/17 08/10/17 08/10/17 Range/Units 07:00 09:04 13:09 AST (14-36) U/L CK-MB (CK-2) (0.0-2.4) ng/mL Troponin I <0.012 <0.012 0.044 H* (0.000-0.034) ng/mL Coagulation 08/09/17 Range/Units 19:42 PT 9.6 (9.0-12.0) sec APTT 19.4 L (22.0-30.0) sec CBC 08/09/17 08/10/17 Range/Units 19:42 07:00 WBC 12.4 H 11.3 H (3.8-10.6) k/uL RBC 4.63 4.25 (3.80-5.40) m/uL Hgb 15.0 14.0 (11.4-16.0) gm/dL Hct 41.0 40.4 (34.0-46.0) % Plt Count 361 297 (150-450) k/uL Comprehensive Metabolic Panel 08/09/17 08/10/17 Range/Units 19:42 07:00 Sodium 146 H 142 (137-145) mmol/L Potassium 4.0 3.9 (3.5-5.1) mmol/L Chloride 109 H 106 (98-107) mmol/L Carbon Dioxide 22 18 L (22-30) mmol/L BUN 17 13 (7-17) mg/dL Creatinine 0.57 0.47 L (0.52-1.04) mg/dL Glucose 115 H 141 H (74-99) mg/dL Calcium 9.7 9.3 (8.4-10.2) mg/dL AST 60 H 48 H (14-36) U/L ALT 95 H 81 H (9-52) U/L Alkaline Phosphatase 94 91 (38-126) U/L Total Protein 6.7 6.1 L (6.3-8.2) g/dL Albumin 4.3 4.0 (3.5-5.0) g/dL Current Medications Generic Name Dose Route Start Last Admin Trade Name Freq PRN Reason Stop Dose Admin Acetaminophen 650 mg 08/09/17 23:05 08/10/17 06:52 Tylenol Tab PO 650 mg Q4HR PRN Administration Fever and/ or Pain Hydrocodone Bitart/Acetaminophen 1 each 08/09/17 23:06 08/09/17 23:42 Strong 5-325 PO 1 each Q6HR PRN Administration Pain Albuterol Sulfate 2.5 mg 08/09/17 21:34 08/10/17 02:40 Ventolin Nebulized INHALATION 2.5 mg RT-Q2H PRN Administration Shortness Of Breath Or Wheezing Albuterol/Ipratropium 3 ml 08/10/17 08:00 08/10/17 14:53 Duoneb 0.5 Mg-3 Mg/3 Ml Soln INHALATION 3 ml RT-QID [facility] Administration Aspirin 325 mg 08/10/17 14:30 08/10/17 15:16 Aspirin PO 325 mg DAILY [facility] Administration Diazepam 5 mg 08/10/17 11:48 08/10/17 15:16 Valium PO 5 mg BID PRN Administration Anxiety Enoxaparin Sodium 60 mg 08/10/17 14:30 08/10/17 15:16 Lovenox SQ 60 mg Q12HR [facility]LA[facility] Administration Guaifenesin 200 mg 08/09/17 23:07 08/10/17 15:22 Robitussin PO 200 mg Q4H PRN Administration Cough Azithromycin 500 mg/ Sodium 250 mls @ 125 mls/hr 08/10/17 09:00 08/10/17 08: 41 Chloride IVPB 125 mls/hr DAILY F[facility] Administration Insulin Aspart 0 unit 08/10/17 07:30 08/10/17 18:13 Novolog SQ 1 unit ACHS FLAK[facility] Administration Protocol Methylprednisolone Sodium Succinate 40 mg 08/10/17 18:00 08/10/17 18:10 Solu-Medrol IV 40 mg Q6HR [facility] Administration Metoprolol Tartrate 12.5 mg 08/10/17 21:00 08/10/17 15:17 Lopressor PO 12.5 mg BID [facility] Administration Miscellaneous Information 1 each 08/10/17 00:12 Rx Info: Iv Contrast Was Given MISCELLANE 08/12/17 00:13 DAILY PRN Per Protocol Naloxone HCl 0.2 mg 08/10/17 00:14 Narcan IV Q2M PRN Opioid Reversal Non-Formulary Medication 25 mg 08/10/17 21:00 Desvenlafaxine Succinate [Pristiq] PO HS [facility] Non-Formulary Medication 100 mg 08/10/17 11:00 08/10/17 10:30 Brivaracetam [Briviact] PO 100 mg BID [facility] Administration Pantoprazole Sodium 40 mg 08/10/17 07:30 08/10/17 08:41 Protonix PO 40 mg [id number] FLAK[facility] Administration Verapamil HCl 40 mg 08/10/17 21:00 Isoptin PO [facility] Intake and Output 08/10/17 08/10/17 08/10/17 06:59 14:59 22:59 Intake Total 250 Balance 250 Intake: Intake, IV Titration 250 Amount Azithromycin 500 mg In 250 Sodium Chloride 0.9% 250 ml @ 125 mls/hr IVPB DAILY [facility] Rx#:[id number] Other: Voiding Method Toilet # Voids 2 4 08/10/17 07:00 08/10/17 07:00
[2017-08-10 20:54] LABS: Glucose,Whole Blood 154 mg/dL (75-99)
[2017-08-10] MEDS ORDERED: NON-FORMULARY DRUG (Desvenlafaxine Succinate [Pristiq] 25 MG) PO SCH (21:00)
[2017-08-10] MEDS ORDERED: VERAPAMIL 40 MG TAB PO SCH (21:00)
[2017-08-10] MEDS ORDERED: FUROSEMIDE 10 MG/ML 2 ML VIAL IV ONE (21:49)
[2017-08-10] MEDS ORDERED: DIAZEPAM 5 MG TAB PO STA (21:49)
[2017-08-11] MEDS: methylPREDNISolone SOD SUCCI 40 MG/ML 1 ML VIAL IV SCH ×3 (05:40→17:44)
[2017-08-11 07:09] LABS: Glucose,Whole Blood 118 mg/dL (75-99)
[2017-08-11] MEDS: INSULIN ASPART 100 UNIT/ML 1 ML 10 ML VIAL SQ SCH ×3 (07:39→17:33)
[2017-08-11] MEDS: PANTOPRAZOLE 40 MG TABLET PO SCH (07:41)
[2017-08-11] MEDS: guaiFENesin SYRUP 100MG/5ML 200 MG/10 ML CUP PO PRN (07:47)
[2017-08-11 07:52] LABS: Basophils % (A) 0 %; Eosinophils # (A) 0.2 k/uL (0-0.7); Eosinophils % (A) 1 %; HCT 41.3 % (34.0-46.0); HGB 13.9 gm/dL (11.4-16.0); Lymphocytes # (A) 1.3 k/uL (1.0-4.8); Lymphocytes % (A) 6 %; MCHC 33.7 g/dL (31.0-37.0); MCV 91.8 fL (80.0-100.0); Mean Platelet Volume 7.5; Monocytes # (A) 0.5 k/uL (0-1.0); Monocytes % (A) 2 %; Neutrophils # (A) 20.8 k/uL (1.3-7.7); Neutrophils % (A) 91 %; Platelet Count 380 k/uL (150-450); RDW 12.6 % (11.5-15.5); WBC 22.9 k/uL (3.8-10.6)
[2017-08-11 08:00] LABS: ALT 74 U/L (9-52); AST 41 U/L (14-36); Albumin 4.2 g/dL (3.5-5.0); Alkaline Phosphatase 86 U/L (38-126); Anion Gap 14 mmol/L; Blood Urea Nitrogen 20 mg/dL (7-17); Calcium 9.8 mg/dL (8.4-10.2); Carbon Dioxide 23 mmol/L (22-30); Chloride 106 mmol/L (98-107); Glucose 119 mg/dL (74-99); Magnesium 2.2 mg/dL (1.6-2.3); Phosphorus 3.7 mg/dL (2.5-4.5); Potassium 4.3 mmol/L (3.5-5.1); Sodium 143 mmol/L (137-145); Total Bilirubin 0.4 mg/dL (0.2-1.3); Total Protein 6.3 g/dL (6.3-8.2)
[2017-08-11 08:12] VITALS: RESP 16
[2017-08-11] MEDS: IPRATROPIUM-ALBUTEROL 3 ML NEB INHALATION SCH ×3 (08:45→15:54)
[2017-08-11] MEDS: AZITHROMYCIN 500 MG in SODIUM CHLORIDE 0.9% 250 ML IVPB SCH (08:57)
[2017-08-11] MEDS: ASPIRIN 325 MG TAB PO SCH (09:09)
[2017-08-11] MEDS: METOPROLOL TARTRATE 12.5 MG TAB PO SCH (09:10)
[2017-08-11] MEDS: DIAZEPAM 5 MG TAB PO PRN (09:10)
[2017-08-11] MEDS: BRIVARACETAM 100 MG PO SCH (09:11)
[2017-08-11] MEDS: ENOXAPARIN 60 MG/0.6 ML SYRINGE SQ SCH (09:11)
[2017-08-11] MEDS ORDERED: ATORVASTATIN 20 MG TAB PO SCH (11:00)
[2017-08-11 11:23] LABS: Glucose,Whole Blood 123 mg/dL (75-99)
--- NOTE | 2017-08-11 11:34 | ECHOF ---
Referral Reason:sob MEASUREMENTS -------- HEIGHT: 157.5 cm WEIGHT: 64.9 kg BP: 157/91 RVIDd: 2.4 cm (< 3.3) IVSd: 1.2 cm (0.6 - 1.1) LVIDd: 4.0 cm (3.9 - 5.3) LVPWd: 1.1 cm (0.6 - 1.1) IVSs: 1.5 cm LVIDs: 2.9 cm LVPWs: 1.4 cm LA Diam: 2.9 cm (2.7 - 3.8) LAESV Index (A-L): 19.53 ml/m Ao Diam: 2.7 cm (2.0 - 3.7) AV Cusp: 1.9 cm (1.5 - 2.6) MV EXCURSION: 10.022 mm (> 18.000) MV EF SLOPE: 51 mm/s (70 - 150) EPSS: 0.3 cm MV E Braulio: 0.95 m/s MV DecT: 167 ms MV A Braulio: 0.94 m/s MV E/A Ratio: 1.01 FINDINGS -------- Sinus rhythm. This was a technically good study. The left ventricular size is normal. There is borderline concentric left ventricular hypertrophy. Overall left ventricular systolic function is normal with, an EF between 55 - 60 %. The right ventricle is normal in size. Normal LA size by volume 22+/-6 ml/m2. The right atrium is normal in size. The aortic valve is trileaflet and appears structurally normal. The mitral valve is normal. The tricuspid valve appears structurally normal. There is no pulmonic regurgitation present. The aortic root size is normal. Normal inferior vena cava with normal inspiratory collapse consistent with estimated right atrial pre ssure of 5 mmHg. There is no pericardial effusion. CONCLUSIONS -------- 1. Sinus rhythm. 2. This was a technically good study. 3. The left ventricular size is normal. 4. There is borderline concentric left ventricular hypertrophy. 5. Overall left ventricular systolic function is normal with, an EF between 55 - 60 %. 6. The right ventricle is normal in size. 7. Normal LA size by volume 22+/-6 ml/m2. 8. The right atrium is normal in size. 9. The aortic valve is trileaflet and appears structurally normal. 10. The mitral valve is normal. 11. The tricuspid valve appears structurally normal. 12. There is no pulmonic regurgitation present. 13. The aortic root size is normal. 14. Normal inferior vena cava with normal inspiratory collapse consistent with estimated right atrial pressure of 5 mmHg. 15. There is no pericardial effusion. PRACTICE MANAGEMENT CONSULTANT: Vielka Jordan RDCS
--- NOTE | 2017-08-11 12:59 | CONS ---
CONSULTATION Nora Colindres is a 62-year-old female a patient of Dr. Gomez who presents for re- evaluation of cough and dyspnea. She was in the emergency room several days back and she was complaining of shortness of breath with exertion and cough with expectoration. She has already been prescribed antibiotics and steroids and there was no improvement. She has a productive cough and dyspnea for the last few days. REVIEW OF SYSTEMS: Subjectively, she felt feverish and chilly. She has cough with expectoration. No nausea, vomiting, diarrhea. No hematuria or dysuria. No strokes or seizures. No skin lesions. No musculoskeletal complaints. She denied chest pain to me when I interviewed her. PAST HISTORY: Her past history is history of cancer, hypertension, seizure disorder, chronic pancreatitis, cervical cancer, hiatus hernia, kidney stones, appendectomy, bowel resection, cholecystectomy, hysterectomy. PAST PSYCHOLOGICAL HISTORY: She has a panic disorder and anxiety disorder. ALLERGIES: She has a long list of allergies including CIPROFLOXACIN, CLARITHROMYCIN, BENTYL, HYDROCODONE, HYDROMORPHONE, LEVAQUIN, ATIVAN, MELOXICAM, PENICILLIN, PROPOXYPHENE, TRAMADOL. MEDICATIONS: List was reviewed. She is on verapamil, brivaracetam, B12, inhalers, vitamin B6, vitamin B2, Z-Aleksandr, Pristiq and steroid dose pack. PHYSICAL EXAMINATION: On examination, her blood pressure on admission was 175/77 and 157/91 mmHg. She was afebrile on admission and has been so. Her pulse rate is about 120 beats per minute. Breath sounds are reduced bilaterally with bilateral rhonchi. Some crackles at the bases. ABDOMEN: Soft, nontender. HEART: Sounds are normal. No murmurs, no gallops, no rub. Extremities are warm, no edema. A 12-lead ECG was reviewed and shows sinus rhythm with upsloping ST segments. CT scan is reviewed and is consistent with her diagnosis of bronchitis. There is no pulmonary embolism. Mild centrilobular emphysema with bibasilar subsegmental atelectasis consistent with the examination and noted. Diverticulosis is noted on CT abdomen. LABS: Labs are reviewed. On admission, her white count was elevated at 12.4, now 22.9. She is on steroids. Hemoglobin is normal range. Electrolytes are normal. Glucose was elevated. Kidney function was normal. She has had 6 troponins drawn from the first of August. The first 3 troponins are normal and the second 3 troponins are abnormal. Lipid panel was drawn. LDL 92, triglycerides 59. IMPRESSION: 1. Shortness of breath and cough with expectoration consistent with bronchitis being treated with antibiotics as well as steroids. 2. Mild troponin, this is a delayed leak without any EKG changes without any definite ST-segment abnormalities. I will repeat the EKG again. 3. Hypertension. 4. Anxiety disorder. 5. Past history of smoking. 6. I am not sure why she is on verapamil q.h.s. SUGGEST: 1. I would suggest 81 mg of aspirin rather than 325 mg of aspirin. 2. Atorvastatin 20 mg p.o. daily. 3. I will discontinue verapamil completely and start her on 25 mg of losartan if needed for hypertension. We will watch her blood pressure. I reviewed her 2D echo study and shows normal LV size and systolic function. Valves are normal. RV is normal. I will repeat a 12-lead ECG once again once her bronchitis improves, then an ischemia workup will be pursued as an outpatient in the next 1 to 2 weeks. Discussed with the hospitalists. AZAR / THALIA: [id number] /
[2017-08-11 15:39] VITALS: BP 144/68; PULSE 97; TEMP 98
[2017-08-11 17:30] LABS: Glucose,Whole Blood 137 mg/dL (75-99)
[2017-08-12] MEDS ORDERED: AZITHROMYCIN 500 MG TAB PO SCH (09:00)
[2017-08-12] MEDS ORDERED: ASPIRIN 81 MG PO SCH (09:00)
--- NOTE | 2017-08-12 09:45 | P.DS ---
Providers Date of admission: 08/09/17 21:35 Expected date of discharge: 08/11/17 Attending physician: Washington Rosales MD Consults: 08/10/17 14:20 Consult Physician Routine Consulting Provider: George Villeda Consult Reason/Comments: SOB Do you want consulting provider notified?: Yes Primary care physician: [facility] Course: 62-year-old female presented to the emergency department because of shortness of breath that has been ongoing for the last few days. Patient before coming to the ER was treated as an outpatient for COPD exacerbation without any significant improvement, she continued to be short of breath and cough. She also was having some chest pain located in the left side of the chest and radiated to the left arm. The pain felt worse with deep breathing. She was also having some right upper quadrant abdominal pain. Evaluation in the emergency department revealed some tachycardia, EKG showed sinus tachycardia without acute ST or T-wave changes. The rest of her vital signs were within normal limits. She was not febrile or hypoxic. Laboratory findings revealed mild leukocytosis of about 12,000 and mild hypernatremia with a sodium level of 146. Physical exam revealed diffuse wheezing and rhonchi throughout the chest. Patient was admitted to the hospital, she was started on steroids DuoNeb's and azithromycin. Initial troponins were negative but later throughout the admission troponins turned minimally positive. Because of that cardiology was consulted, verapamil was discontinued and she was started on Lopressor, aspirin and was treated with about 48 hours of Lovenox subcu therapeutic dose, she was also started on a statin. She had an echocardiogram which did not reveal any acute abnormalities. Her ejection fraction was within normal limits. Cardiology did not recommend working her up for coronary artery disease while she was in the hospital, Dr. Vuong prefer to see the patient in the office after the respiratory status stabilizes. The case was discussed with the machine operator hay stacker in details. Feedback was provided to the patient as well. Because of the abdominal pain she had a computed tomography scan of the abdomen and pelvis and that showed no acute intra-abdominal process, there was some hiatal hernia and mild diverticulosis. Because of the respiratory symptoms she had a CT angiogram of the chest and that did not show any evidence of PE. There was some mild emphysema on the computed tomography scan. No infiltrates were seen. On the day of discharge she did not have any wheezing and she was able to ambulate without significant shortness of breath, tachycardia or hypoxia. Patient will follow-up in the office with the machine operator hay stacker in several days, she will follow-up with her primary care physician as well. She is aware to come back to emergency department if she has worsening shortness of breath or chest pain. Time for discharge 35 minutes. Patient Condition at Discharge: Stable Plan - Discharge Summary New Discharge Prescriptions: New Acetaminophen Tab [Tylenol] 650 mg PO Q4HR PRN tab PRN Reason: Fever And/ Or Pain Doxycycline Hyclate 100 mg PO BID 5 Days #10 tab guaiFENesin SYRUP 100MG/5ML [Robitussin] 200 mg PO Q4H PRN #20 cup PRN Reason: Cough Albuterol Sulfate [Proair Hfa] 1 - 2 puff INHALATION Q6HR PRN #1 inhaler PRN Reason: Shortness Of Breath Aspirin 81 mg PO DAILY #60 chew Atorvastatin [Lipitor] 20 mg PO DAILY #30 tab Metoprolol Tartrate [Lopressor] 12.5 mg PO BID #60 tab methylPREDNISolone [Medrol Dose Pack] 4 mg PO DIRECTED #1 pack Continue Brivaracetam [Briviact] 100 mg PO BID Riboflavin [Vitamin B-2] 50 mg PO DAILY Pyridoxine [Vitamin B-6] 50 mg PO DAILY Fluticasone Nasal [place] [Flonase Nasal [place]] 1 spray EA NOSTRIL DAILY PRN PRN Reason: Nasal Congestion Cyanocobalamin [Vitamin B-12] 500 mcg PO DAILY Desvenlafaxine Succinate [Pristiq] 25 mg PO HS methylPREDNISolone Dose Pack [Medrol Dose Pack] See Taper PO DIRECTED Azithromycin [Zithromax Z-pack] See Taper PO DAILY Discontinued Verapamil [Isoptin] 40 mg PO HS Discharge Medication List Brivaracetam [Briviact] 100 mg PO BID 08/12/16 [History] Cyanocobalamin [Vitamin B-12] 500 mcg PO DAILY 08/05/17 [History] Fluticasone Nasal [place] [Flonase Nasal [place]] 1 spray EA NOSTRIL DAILY PRN 08/05 [History] Pyridoxine [Vitamin B-6] 50 mg PO DAILY 08/05/17 [History] Riboflavin [Vitamin B-2] 50 mg PO DAILY 08/05/17 [History] Azithromycin [Zithromax Z-pack] See Taper PO DAILY 08/09/17 [History] Desvenlafaxine Succinate [Pristiq] 25 mg PO HS 08/09/17 [History] methylPREDNISolone Dose Pack [Medrol Dose Pack] See Taper PO DIRECTED [History] Acetaminophen Tab [Tylenol] 650 mg PO Q4HR PRN tab 08/10/17 [Rx] Albuterol Sulfate [Proair Hfa] 1 - 2 puff INHALATION Q6HR PRN #1 inhaler [Rx] Doxycycline Hyclate 100 mg PO BID 5 Days #10 tab 08/10/17 [Rx] guaiFENesin [place] 100MG/5ML [Robitussin] 200 mg PO Q4H PRN #20 cup 08/10/17 [Rx] Aspirin 81 mg PO DAILY #60 chew 08/11/17 [Rx] Atorvastatin [Lipitor] 20 mg PO DAILY #30 tab 08/11/17 [Rx] Metoprolol Tartrate [Lopressor] 12.5 mg PO BID #60 tab 08/11/17 [Rx] methylPREDNISolone [Medrol Dose Pack] 4 mg PO DIRECTED #1 pack 08/11/17 [Rx] Follow up Appointment(s)/Referral(s): Haile Vuong MD [STAFF PHYSICIAN] - 08/14/17 (Office will call with appt. time for August.) Alex Gomez DO [Primary Care Provider] - 08/13/17 1:50 pm Patient Instructions/Handouts: Metoprolol (By mouth), Doxycycline (By mouth), Albuterol (By breathing), Aspirin (By mouth), Guaifenesin (By mouth), Methylprednisolone (By mouth), Atorvastatin (By mouth), COPD (Chronic Obstructive Pulmonary Disease) (DC) Activity/Diet/Wound Care/Special Instructions: make sure patient gets her bottle of Briviact from home in med box Discharge Disposition: HOME SELF-CARE
== END 2017-08-11 18:05 | disposition home or self-care (01) ==
LOC: EC 19:25 → 5MS5E 21:35
PROVIDERS: ADMIT Internal Medicine; ATTEND Internal Medicine
DX: J44.1 Chronic obstructive pulmonary disease with (acute) exacerbation (principal); J20.9 Acute bronchitis, unspecified; J44.0 Chronic obstructive pulmonary disease with (acute) lower respiratory infection; R10.11 Right upper quadrant pain; E87.0 Hyperosmolality and hypernatremia; R94.5 Abnormal results of liver function studies; R11.0 Nausea; R00.0 Tachycardia, unspecified; Z77.22 Contact with and (suspected) exposure to environmental tobacco smoke (acute) (chronic); E66.9 Obesity, unspecified; Z68.26 Body mass index [BMI] 26.0-26.9, adult; F41.0 Panic disorder [episodic paroxysmal anxiety]; K86.1 Other chronic pancreatitis; I10 Essential (primary) hypertension; G40.909 Epilepsy, unspecified, not intractable, without status epilepticus; Z79.899 Other long term (current) drug therapy; Z88.1 Allergy status to other antibiotic agents; Z88.5 Allergy status to narcotic agent; Z88.0 Allergy status to penicillin; Z88.8 Allergy status to other drugs, medicaments and biological substances; Z87.891 Personal history of nicotine dependence; Z87.442 Personal history of urinary calculi; Z85.41 Personal history of malignant neoplasm of cervix uteri; Z80.0 Family history of malignant neoplasm of digestive organs; Z82.49 Family history of ischemic heart disease and other diseases of the circulatory system; R73.9 Hyperglycemia, unspecified
CPT/HCPCS: 36415; 71046; 71275; 74176; 80053; 80061; 82550; 82553; 83605; 83735; 83880; 84100; 84443; 84484; 85025; 85379; 85610; 85730; 87040; 87502; 93005; 93306; 94640; 96365; 96366; 96372; 96375; 96376; 99285

== ENCOUNTER → 2017-09-07 | Outpatient (CLI) | payer OTHER ==
[2017-09-04 16:20] VITALS: BMI 26.6
[2017-09-07 14:37] VITALS: BP 144/71; PULSE 87; RESP 16
--- NOTE | 2017-09-09 06:01 | P.PAINCN ---
History of Present Illness - Reason for Consult Consult date: 09/07/17 - History of Present Illness This is 62 years old female with a chronic history of severe right upper quadrant pain, pain started in 2014 after she had hiatal hernia repair surgery, and she had multiple diagnostic study done at [facility],, she reported that the pain is constant localized in the right upper quadrant, it is not related to food, any activity increases her pain is bending, or changing position or taking deep breaths increases her pain, she denies any skin rash, denies any motor or sensory deficits, intensity of the pain is 7/10 increased to 10 over 10, she was treated in the past with specific physical therapy, and she gets some benefit from it and also she had trigger point injection done by her family physician and this decreased her pain for short time, Past Medical History Past Medical History: Cancer, GERD/Reflux, Hypertension, Seizure Disorder Additional Past Medical History / Comment(s): Last seizure 04/2017, Chronic Pancreatitis. Hx Kidney Stones, Hx Cervical Cancer. HIATAL HERNIA,current steroid History of Any Multi-Drug Resistant Organisms: None Reported Past Surgical History: Appendectomy, Bowel Resection, Cholecystectomy, Hysterectomy Additional Past Surgical History / Comment(s): Surgery on RT Salivary Gland. RT ELBOW NERVE SURG. EGD & COLONOSCOPY, JADEN FUNDLAPLASTY 06/2015, cervicle cancer surgery 1988 Past Anesthesia/Blood Transfusion Reactions: Postoperative Nausea & Vomiting ( PONV) Additional Past Anesthesia/Blood Transfusion Reaction / Comm: TAKES LONG TIME TO AWAKEN Past Psychological History: Anxiety, Panic Disorder Additional Psychological History / Comment(s): PT STATED SHE SEE'S A THERAPIST. CURRENTLY DENIES ANY THOUGHTS OF HARMING SELF NO HOPELESSNESS FELINGS. Smoking Status: Former smoker Past Alcohol Use History: None Reported Additional Past Alcohol Use History / Comment(s): SMOKED 20 YEARS, 5 PPD. QUIT 1998 Past Drug Use History: None Reported - Past Family History Mother Sister(s) Family Medical History: Cancer Additional Family Medical History / Comment(s): COLON CANCER. GRANDFATHER ALSO HAD COLON CANCER Mother Family Medical History: Cancer, Myocardial Infarction (ND) Father Family Medical History: Hypertension Brother(s) Family Medical History: No Reported History Sister(s) Family Medical History: Cancer Daughter(s) Family Medical History: No Reported History Son(s) Family Medical History: No Reported History Medications and Allergies Home Medications Medication Instructions Recorded Confirmed Type Brivaracetam [Briviact] 100 mg PO BID 08/12/16 09/07/17 History Cyanocobalamin [Vitamin B-12] 500 mcg PO DAILY 08/05/17 09/07/17 History Fluticasone Nasal Garfield [Flonase 1 spray EA NOSTRIL DAILY PRN 08/05/17 09/07/17 History Nasal Garfield] Pyridoxine [Vitamin B-6] 50 mg PO DAILY 08/05/17 09/07/17 History Desvenlafaxine Succinate [Pristiq] 25 mg PO HS 08/09/17 09/07/17 History methylPREDNISolone Dose Pack See Taper PO DIRECTED 08/09/17 09/07/17 History [Medrol Dose Pack] Albuterol Sulfate [Proair Hfa] 1 - 2 puff INHALATION Q6HR PRN #1 08/10/17 Rx inhaler Aspirin 81 mg PO DAILY #60 chew 08/11/17 09/07/17 Rx Atorvastatin [Lipitor] 20 mg PO DAILY #30 tab 08/11/17 09/07/17 Rx Metoprolol Tartrate [Lopressor] 12.5 mg PO BID #60 tab 08/11/17 09/07/17 Rx Fluticasone/Salmeterol [Advair 1 inhalation PO BID 09/04/17 09/07/17 History 250-50 Diskus] Allergies Allergy/AdvReac Type Severity Reaction Status Date / Time ciprofloxacin [From Cipro] Allergy Rash/Hives Verified 09/07/17 14:18 ciprofloxacin HCl Allergy Rash/Hives Verified 09/07/17 14:18 [From Cipro] clarithromycin [From Biaxin] Allergy Rash/Hives Verified 09/07/17 14:18 dicyclomine [From Bentyl] Allergy Confusion Verified 09/07/17 14:18 hydrocodone bitartrate Allergy Rash/Hives Verified 09/07/17 14:18 [From Vicodin] hydromorphone HCl Allergy Itching Verified 09/07/17 14:18 [From Dilaudid] levofloxacin [From Levaquin] Allergy Rash/Hives Verified 09/07/17 14:18 lorazepam [From Ativan] Allergy seizures Verified 09/07/17 14:18 meloxicam [From Mobic] Allergy Rash/Hives Verified 09/07/17 14:18 oxycodone Allergy Rash/Hives Verified 09/07/17 14:18 Penicillins Allergy Swelling Verified 09/07/17 14:18 IN THROAT promethazine HCl Allergy seizures Verified 09/07/17 14:18 [From Phenergan] propoxyphene napsylate Allergy Rash/Hives Verified 09/07/17 14:18 [From Darvocet-N] tramadol HCl [From Ultram] Allergy seizures Verified 09/07/17 14:18 Physical Exam Social history : smoker , NO ETOH , NO Illegal drugs us Review of Systems : 1- Constitutional : no chills , no fever , no night sweats , 2- Ears : no ear discharge , no change in hearing 3-Nose, Mouth ,Throat ; no bleeding gums, no sore throat , no epistaxis , 4-Cardiovascular : Denies chest pain, , no orthopnea , no palpitation 5-Respiratory : Denies cough , no dyspnea , no hemoptysis 6-Gastrointestinal :, no change in bowel habits , no coffee- ground emesis, complaining of right upper quadrant pain . 7-Genitourinary : No hematuria , no discharge , no incontinence, 8-Musculoskeletal : No gait dysfunction , report low back pain , 9- Neurological : no ataxia , no tremor , no sezure , 10-Psychatric , no suicidal ideation no hallucination 11- Endocrine : no cold intolerence , no polyuria , no polydypsia , 12-Hematologic : no easy bleeding , no easy brusing , 13-Allergic / immunology : no angioedema , no wheezing ,no allergic rhinitis 14-Integumentary : no brttle nails , no change hair / nails , no foot/leg ulcers . Physical Examinations : 1-Constitutional : Cooperative , not in acute distress . 2-HEENT : nech ; supple , no Lymphadenopathy , no Thyromegaly , :eyes , no icterus, no photophobia . ENT : , normal oropharynx , no Thrush 3- Respiratory : Chest clear to auscultations Bilaterally , no wheezing . 4- Cardiovascular : regular rate and rhythem , S1 , S2 , no S3 , no S4. 5- Gastrointestinal: abdomen soft no tenderness , no organomegally , allodynia in the right upper quadrant Tenderness to superficial and deep palpation of the right upper quadrant, the skin of the abdomen intact Is no skin rash in the abdominal area,, tenderness over the costal margin on the right side. 6- Genitourinary : Defferred . 7-Integumentary : No cellulitis , no ulcers , normal skin turgor , no cyanotic . 8- neurologic : Cranial nerve II to XII intact , no focal neurological deffecit 9-psychatric : alert , oriented X 3 , appropriate affect , intact judgment and insight . 10-Lymphatic : no Lymphadenopathy. 11- musculoskeltal: normal gait Cervical Spine motor stregnth in the deltoid and biceps, normal right side , normal Left si . Lumber spine moter stegnth lower extremities ,thigh and legs 5/5 Right side , 5/5 Left side Assessment and Plan Plan: Assessment and plan= 1-right upper quadrant abdominal pain clinic and examination support that the pain secondary to musculoskeletal/muscle spasm . Patient could benefit from ultrasound-guided right rectus sheath block, procedure risk and benefits discussed with the patient , and she agreed with the preceding Time with Patient: Greater than 30 PQRS Measure Charge Sheet Measure #130: Documentation of Current Meds in Medical Chart: Patient's medications documented in chart Measure #226: Tobacco Use: Screen & Cessation Intervention: Pt not a tobacco user Measure #111: Pneumonia Vaccination: Pneumococcal vaccine administered or previously received Measure #47: Advance Care Plan: Advance care planning discussed & documented, plan or surrogate given Measure #412: Opioid Treatment Agreement: No documentation of signed opioid treatment agreement Measure #408: Opioid Therapy Follow-up Evaluation: Patient had NO f/u eval minimum every 3 months during opioid therapy Measure #317: Preventitive Care & Scrn High Bld Press & F/U: Pre-hypertensive or hypertensive BP documented, pt will f/u with PCP Measure #128: Body Mass Index (BMI) Screening & Follow-up: BMI documented within normal parameters Measure #131: Pain Assessment & Follow-up: Pain positive & plan documented, Follow-up scheduled Measure #431: Unhealthy Alcohol Use Preventative Care & Scrn: Patient not identified as an unhealthy alcohol user PQRS Narrative: Smoking Status Former smoker Do You Want the Pneumonia No Vaccine AT THIS TIME? Blood Pressure 144/71 Pain Intensity [Right Upper 8 Abdomen] Scale Used Numeric (1 - 10) Hx Alcohol Use (MH) No Home Medications: Ambulatory Orders Brivaracetam [Briviact] 100 mg PO BID 08/12/16 Cyanocobalamin [Vitamin B-12] 500 mcg PO DAILY 08/05/17 Fluticasone Nasal Garfield [Flonase Nasal Garfield] 1 spray EA NOSTRIL DAILY PRN 08/05 Pyridoxine [Vitamin B-6] 50 mg PO DAILY 08/05/17 Desvenlafaxine Succinate [Pristiq] 25 mg PO HS 08/09/17 methylPREDNISolone Dose Pack [Medrol Dose Pack] See Taper PO DIRECTED Albuterol Sulfate [Proair Hfa] 1 - 2 puff INHALATION Q6HR PRN #1 inhaler Aspirin 81 mg PO DAILY #60 chew 08/11/17 Atorvastatin [Lipitor] 20 mg PO DAILY #30 tab 08/11/17 Metoprolol Tartrate [Lopressor] 12.5 mg PO BID #60 tab 08/11/17 Fluticasone/Salmeterol [Advair 250-50 Diskus] 1 inhalation PO BID 09/04/17
== END | disposition home or self-care (01) ==
LOC: PNWHC3 13:40
PROVIDERS: ATTEND Specialist
DX: G89.28 Other chronic postprocedural pain (principal); R10.11 Right upper quadrant pain; M62.838 Other muscle spasm; K21.9 Gastro-esophageal reflux disease without esophagitis; I10 Essential (primary) hypertension; G40.909 Epilepsy, unspecified, not intractable, without status epilepticus; F41.9 Anxiety disorder, unspecified; F41.0 Panic disorder [episodic paroxysmal anxiety]; Z87.891 Personal history of nicotine dependence; Z79.51 Long term (current) use of inhaled steroids; Z79.899 Other long term (current) drug therapy; Z79.82 Long term (current) use of aspirin; Z88.1 Allergy status to other antibiotic agents; Z88.6 Allergy status to analgesic agent; Z88.0 Allergy status to penicillin; Z90.49 Acquired absence of other specified parts of digestive tract; Z98.890 Other specified postprocedural states; Z88.8 Allergy status to other drugs, medicaments and biological substances
CPT/HCPCS: 99211

== ENCOUNTER → 2017-09-11 | Outpatient (CLI) | payer OTHER ==
--- NOTE | 2017-09-14 08:07 | MM ---
Reason for exam: screening (asymptomatic). Last mammogram was performed 1 year and 1 month ago. History: Patient has history of other cancer at age 33. Physical Findings: A clinical breast exam by your physician is recommended on an annual basis and results should be correlated with mammographic findings. MG Screening Mammo w CAD Bilateral CC and MLO view(s) were taken. Prior study comparison: August 08, 2016, mammogram, performed at [facility]. January 29, 2015, mammogram, performed at [facility]. There are scattered fibroglandular densities. There is chronic nodularity bilaterally. Increase in size bilateral nodules. This finding is changed when compared with previous exams. ASSESSMENT: Incomplete: need additional imaging evaluation, BI-RAD 0 RECOMMENDATION: Ultrasound of both breasts. [facility] will attempt to contact patient to return for ultrasound.
== END | disposition home or self-care (01) ==
LOC: RADMAMWWP 09:47
PROVIDERS: ATTEND Family Medicine
DX: Z12.31 Encounter for screening mammogram for malignant neoplasm of breast (principal)
CPT/HCPCS: 77067

== ENCOUNTER → 2017-09-15 | Outpatient (CLI) | payer OTHER ==
--- NOTE | 2017-09-15 09:25 | USB ---
Reason for exam: additional evaluation requested from abnormal screening. History: Patient has history of other cancer at age 33. Physical Findings: Nurse did not find any significant physical abnormalities on exam. US Breast Workup [facility] Right complete breast ultrasound includes all four quadrants, the retroareolar region and axilla. Finding demonstrates a 0.4 x 0.4 x 0.1cm oval lesion too small to characterize at 10 o'clock, likely tiny cyst. Left complete breast ultrasound includes all four quadrants, the retroareolar region and axilla. Finding demonstrates a 0.5 x 0.3 x 0.4cm round, mixed lesion at 2 o'clock, possibly a complicated cyst and a 0.5 x 0.4 x 0.3cm oval, cystic lesion at 4 o'clock. Multiple 2mm lesions seen lateral bilaterally. 6 month follow up mammogram recommended as a precautionary measure. These results were verbally communicated with the patient and result sheet given to the patient on 09/15/17. ASSESSMENT: Probably benign, BI-RAD 3 RECOMMENDATION: Follow-up diagnostic mammogram of both breasts in 6 months.
== END | disposition home or self-care (01) ==
LOC: RADUSWWP 08:01
PROVIDERS: ATTEND Family Medicine
DX: R92.8 Other abnormal and inconclusive findings on diagnostic imaging of breast (principal)

== ENCOUNTER 2017-09-21 07:14 | Day surgery (SDC) | payer OTHER ==
[2017-09-17 09:13] VITALS: BMI 26.3
[~2017-09-21 07:14] MED LIST: LACTATED RINGERS 1,000 ML IV SCH
[2017-09-21 08:50] VITALS: RESP 16; TEMP 98.2
[2017-09-21] MEDS ORDERED: LIDOCAINE 1% 20 ML VIAL (10MG/ML) FOR IV START INTRADERMA ONE (08:56)
--- NOTE | 2017-09-21 09:57 | P.PCN ---
Date of Procedure: 09/21/17 Preoperative Diagnosis: Right upper quadrant abdominal musculoskeletal pain Rectus sheath syndrome Postoperative Diagnosis: Same as above Procedure(s) Performed: Rectus sheath injection under ultrasound guidance Anesthesia: MAC (Local with IV conscious sedation with to when those of Versed) Surgeon: Kamille Pang Pathology: none sent Condition: stable Disposition: PACU Description of Procedure: The patient was seen in the preop holding area, the procedure was explained to her and her questions were answered then she signed the consent for the procedure. The patient then was brought into the procedure room and placed in the supine position. Skin was prepped with ChloraPrep and draped in a sterile manner. Lidocaine 1% was used to numb the skin up at the entry site. Ultrasound was used to identify the rectus sheath of the right abdominal rectus muscle. Then I used a 4 inch 21-gauge needle to go through the skin and under ultrasound guidance into the rectus sheath and I then injected 40 mg of Kenalog +5 MLS of Marcaine 0.5%. The needle then was removed. The patient tolerated procedure well and was transferred in stable condition to PACU.
[2017-09-21] MEDS ORDERED: IV FLUID CONTINUATION 1,000 ML IV ONE (10:07)
[2017-09-21 10:41] VITALS: BP 154/81; PULSE 84
== END 2017-09-21 10:52 | disposition home or self-care (01) ==
LOC: ORPAIN 07:14
PROVIDERS: ATTEND Anesthesiology
DX: R10.11 Right upper quadrant pain (principal); K21.9 Gastro-esophageal reflux disease without esophagitis; I10 Essential (primary) hypertension; G40.909 Epilepsy, unspecified, not intractable, without status epilepticus; K86.1 Other chronic pancreatitis; F41.9 Anxiety disorder, unspecified; F41.0 Panic disorder [episodic paroxysmal anxiety]; Z79.51 Long term (current) use of inhaled steroids; Z79.82 Long term (current) use of aspirin; Z79.52 Long term (current) use of systemic steroids; Z79.899 Other long term (current) drug therapy; Z85.41 Personal history of malignant neoplasm of cervix uteri; Z87.442 Personal history of urinary calculi; Z87.891 Personal history of nicotine dependence; Z88.6 Allergy status to analgesic agent; Z88.1 Allergy status to other antibiotic agents; Z88.5 Allergy status to narcotic agent; Z88.0 Allergy status to penicillin; Z88.8 Allergy status to other drugs, medicaments and biological substances
CPT/HCPCS: 20550; J2250; J3301; 99152

== ENCOUNTER 2017-09-24 00:10 | Observation (INO) | payer OTHER ==
[2017-09-24 01:07] LABS: Basophils % (A) 0 %; Eosinophils # (A) 0.2 k/uL (0-0.7); Eosinophils % (A) 3 %; HGB 12.9 gm/dL (11.4-16.0); Lymphocytes # (A) 1.9 k/uL (1.0-4.8); Lymphocytes % (A) 21 %; MCH 31.3 pg (25.0-35.0); MCV 92.2 fL (80.0-100.0); Monocytes # (A) 0.6 k/uL (0-1.0); Monocytes % (A) 7 %; Neutrophils # (A) 5.9 k/uL (1.3-7.7); Neutrophils % (A) 67 %; Platelet Count 238 k/uL (150-450); RBC 4.12 m/uL (3.80-5.40); RDW 13.1 % (11.5-15.5); WBC 8.8 k/uL (3.8-10.6)
[2017-09-24 01:18] LABS: ALT 51 U/L (9-52); AST 32 U/L (14-36); Alkaline Phosphatase 94 U/L (38-126); Amylase 74 U/L (30-110); Anion Gap 10 mmol/L; Blood Urea Nitrogen 16 mg/dL (7-17); Calcium 9.5 mg/dL (8.4-10.2); Carbon Dioxide 24 mmol/L (22-30); Chloride 107 mmol/L (98-107); Glucose 107 mg/dL (74-99); Lipase 448 U/L (23-300); Potassium 3.6 mmol/L (3.5-5.1); Sodium 141 mmol/L (137-145); Total Bilirubin 0.2 mg/dL (0.2-1.3); Total Protein 5.6 g/dL (6.3-8.2)
[2017-09-24 01:23] LABS: Creatine Kinase 114 U/L (30-135)
[2017-09-24 01:26] LABS: D-Dimer 0.19 mg/L FEU (<0.60); Prothrombin Time 9.6 sec (9.0-12.0)
[2017-09-24 01:31] LABS: Partial Thromboplastin Time 18.6 sec (22.0-30.0)
[2017-09-24 01:37] LABS: Creatine Kinase MB 2.2 ng/mL (0.0-2.4); Troponin I <0.012 ng/mL (0.000-0.034)
--- NOTE | 2017-09-24 01:50 | XR ---
EXAMINATION TYPE: XR chest 2V DATE OF EXAM: 09/24/2017 COMPARISON: 08/09/2017 HISTORY: Chest pain TECHNIQUE: Frontal and lateral views of the chest are obtained. FINDINGS: Heart and mediastinum are normal. Lungs are clear. Diaphragm is normal. Bony thorax is int act. There are chest leads. IMPRESSION: Normal chest. No change.
[2017-09-24] MEDS ORDERED: NITROGLYCERIN SL TABS 0.4 MG TAB SUBLINGUAL PRN (02:26)
[2017-09-24] MEDS ORDERED: ALBUTEROL NEBULIZED 2.5 MG/3 ML INHALATION PRN (02:29)
[2017-09-24] MEDS ORDERED: FLUTICASONE 50MCG/SPRAY NASAL 16GM EA NOSTRIL PRN (02:29)
--- NOTE | 2017-09-24 02:31 | ED ---
Chest Pain HPI - General Chief Complaint: Chest Pain Stated Complaint: chest pain Time Seen by Provider: 09/24/17 00:12 Source: patient Mode of arrival: EMS Limitations: no limitations - History of Present Illness Initial Comments: This patient is a 62-year-old woman who presents to be evaluated for substernal chest pain which is also radiating to her neck or jaw. Patient states that the pain came on while she was resting in bed. She used one of her inhalers, and then shortly after noted that the pain had, and she also was feeling a little bit nauseated. She states she did have similar episode previously and was seen at the hospital, including have a cardiology consultation and was told that she had a "heart problem." She states that she had a stress test but does not know the result of this yet. MD Complaint: chest pain Onset/Timin -: hour(s) Onset: during rest Pain Location: substernal Pain Radiation: jaw/teeth Severity: severe Quality: tightness Consistency: constant Improves With: nothing Worsens With: nothing Anginal Symptoms: nausea Treatments Prior to Arrival: none - Related Data Home Medications Medication Instructions Recorded Confirmed Brivaracetam [Briviact] 100 mg PO BID 08/12/16 09/24/17 Cyanocobalamin [Vitamin B-12] 500 mcg PO DAILY 08/05/17 09/24/17 Pyridoxine [Vitamin B-6] 50 mg PO DAILY 08/05/17 09/24/17 Desvenlafaxine Succinate [Pristiq] 25 mg PO HS 08/09/17 09/24/17 Budesonide-Formot 160-4.5 Mcg 2 puff INHALATION RT-BID 09/17/17 09/24/17 [Symbicort 160-4.5 Mcg Inhaler] Metoprolol Tartrate 12.5 mg PO BID 09/17/17 09/24/17 Montelukast [Singulair] 10 mg PO HS 09/17/17 09/24/17 Riboflavin [Vitamin B-2] 50 mg PO DAILY 09/24/17 09/24/17 Previous Rx's Medication Instructions Recorded Aspirin 81 mg PO DAILY #60 chew 08/11/17 Atorvastatin [Lipitor] 20 mg PO DAILY #30 tab 08/11/17 Nitroglycerin Sl Tabs [Nitrostat] 0.4 mg SUBLINGUAL Q5M PRN #25 tab 09/24/17 Allergies Allergy/AdvReac Type Severity Reaction Status Date / Time ciprofloxacin [From Cipro] Allergy Rash/Hives Verified 09/24/17 08:42 ciprofloxacin HCl Allergy Rash/Hives Verified 09/24/17 08:42 [From Cipro] clarithromycin [From Biaxin] Allergy Rash/Hives Verified 09/24/17 08:42 dicyclomine [From Bentyl] Allergy Confusion Verified 09/24/17 08:42 hydrocodone bitartrate Allergy Rash/Hives Verified 09/24/17 08:42 [From Vicodin] hydromorphone HCl Allergy Itching Verified 09/24/17 08:42 [From Dilaudid] levofloxacin [From Levaquin] Allergy Rash/Hives Verified 09/24/17 08:42 lorazepam [From Ativan] Allergy seizures Verified 09/24/17 08:42 meloxicam [From Mobic] Allergy Rash/Hives Verified 09/24/17 08:42 oxycodone Allergy Rash/Hives Verified 09/24/17 08:42 Penicillins Allergy Swelling Verified 09/24/17 08:42 IN THROAT promethazine HCl Allergy seizures Verified 09/24/17 08:42 [From Phenergan] propoxyphene napsylate Allergy Rash/Hives Verified 09/24/17 08:42 [From Darvocet-N] tramadol HCl [From Ultram] Allergy seizures Verified 09/24/17 08:42 ipratropium [From Atrovent] AdvReac pain Verified 09/24/17 08:42 Review of Systems ROS Statement: Those systems with pertinent positive or pertinent negative responses have been documented in the HPI. ROS Other: All systems not noted in ROS Statement are negative. Constitutional: Denies: fever, chills, weakness Respiratory: Denies: cough, dyspnea, wheezes Cardiovascular: Reports: as per HPI, chest pain. Denies: palpitations, dyspnea on exertion, orthopnea, edema, syncope Gastrointestinal: Reports: nausea. Denies: abdominal pain, vomiting Genitourinary: Denies: dysuria, hematuria Musculoskeletal: Denies: back pain Skin: Denies: rash Neurological: Denies: headache, weakness, numbness EKG Findings - EKG Comments: EKG Findings:: Possible old inferior infarct. - EKG Results: EKG: interpreted by FELICIANO, sinus rhythm (Rate approximately 92 bpm), normal axis , normal QRS, normal ST/T Past Medical History Past Medical History: Asthma, Cancer, COPD, Hyperlipidemia, Hypertension, Seizure Disorder Additional Past Medical History / Comment(s): Last seizure 04/2017, Chronic Pancreatitis. Hx Kidney Stones, Hx Cervical Cancer. HIATAL HERNIA, hx migraines, hx heart murmer, hx diverticulitis, History of Any Multi-Drug Resistant Organisms: None Reported Past Surgical History: Appendectomy, Bowel Resection, Cholecystectomy, Hysterectomy, Orthopedic Surgery Additional Past Surgical History / Comment(s): Surgery on RT Salivary Gland. RT ELBOW NERVE SURG, EGD & COLONOSCOPY, JADEN FUNDLAPLASTY, cervicle cancer surgery 1988, mendez oophorectomy, Past Anesthesia/Blood Transfusion Reactions: Postoperative Nausea & Vomiting ( PONV) Additional Past Anesthesia/Blood Transfusion Reaction / Comment(s): TAKES LONG TIME TO AWAKEN Past Psychological History: Anxiety, Panic Disorder Smoking Status: Former smoker Past Alcohol Use History: None Reported Past Drug Use History: None Reported - Past Family History Mother Sister(s) Family Medical History: Cancer Additional Family Medical History / Comment(s): COLON CANCER. GRANDFATHER ALSO HAD COLON CANCER Mother Family Medical History: Cancer Father Family Medical History: Hypertension Brother(s) Family Medical History: No Reported History Sister(s) Family Medical History: Cancer Daughter(s) Family Medical History: No Reported History Son(s) Family Medical History: No Reported History General Exam Limitations: no limitations General appearance: alert, in no apparent distress Head exam: Present: atraumatic, normocephalic Eye exam: Present: normal appearance. Absent: scleral icterus, conjunctival injection ENT exam: Present: normal oropharynx Neck exam: Present: normal inspection, full ROM Respiratory exam: Present: normal lung sounds bilaterally. Absent: respiratory distress, wheezes, rales, rhonchi, stridor, chest wall tenderness Cardiovascular Exam: Present: regular rate, normal rhythm, normal heart sounds. Absent: systolic murmur, diastolic murmur, rubs, gallop GI/Abdominal exam: Present: soft. Absent: distended, tenderness, guarding, rebound, rigid Extremities exam: Present: normal inspection, normal capillary refill. Absent: pedal edema, calf tenderness Back exam: Present: normal inspection. Absent: CVA tenderness (R), CVA tenderness (L) Neurological exam: Present: alert Skin exam: Present: warm, dry, intact, normal color. Absent: rash Course Vital Signs 09/24/17 09/24/17 09/24/17 00:11 00:54 01:42 Temperature 97.6 F 98.0 F Pulse Rate 100 88 Respiratory 17 16 16 Rate Blood Pressure 150/89 139/76 O2 Sat by Pulse 98 99 Oximetry 09/24/17 09/24/17 01:57 02:59 Temperature 97.8 F 97.8 F Pulse Rate 93 90 Respiratory 16 16 Rate Blood Pressure 139/76 159/74 O2 Sat by Pulse 99 99 Oximetry Chest Pain MDM - MDM The patient's symptoms have resolved, but she'll be admitted here for further evaluation. Disposition Clinical Impression: Chest pain Disposition: ADMITTED IP TO THIS HOSP Condition: Good Is patient prescribed a controlled substance at d/c from ED?: No
[2017-09-24] MEDS: ACETAMINOPHEN TAB 325 MG TAB PO PRN ×2 (04:09→11:33)
[2017-09-24 07:53] VITALS: RESP 18
[2017-09-24] MEDS ORDERED: SYMBICORT 160-4.5 MCG INHALER INHALATION SCH (08:00)
[2017-09-24 08:02] LABS: Creatine Kinase 93 U/L (30-135)
[2017-09-24 08:16] LABS: Creatine Kinase MB 2.1 ng/mL (0.0-2.4); Troponin I <0.012 ng/mL (0.000-0.034)
[2017-09-24] MEDS ORDERED: PYRIDOXINE 50 MG TAB PO SCH (09:00)
[2017-09-24] MEDS ORDERED: BRIVARACETAM 100 MG PO SCH (09:00)
[2017-09-24] MEDS ORDERED: CYANOCOBALAMIN 500 MCG TAB PO SCH (09:00)
[2017-09-24] MEDS ORDERED: METOPROLOL TARTRATE 12.5 MG TAB PO SCH (09:00)
[2017-09-24] MEDS ORDERED: ATORVASTATIN 20 MG TAB PO SCH (09:00)
[2017-09-24 11:43] LABS: Creatine Kinase 91 U/L (30-135)
[2017-09-24 11:50] VITALS: BP 139/67; TEMP 98.3
[2017-09-24 11:56] LABS: Creatine Kinase MB 1.8 ng/mL (0.0-2.4); Troponin I <0.012 ng/mL (0.000-0.034)
--- NOTE | 2017-09-24 12:06 | P.CRDCN ---
History of Present Illness Consult date: 09/24/17 History of present illness: Mrs. Colindres is a pleasant 62-year-old female past medical history significant for COPD, hypertension, dyslipidemia, seizure disorder, chronic pancreatitis and former tobacco use. She follows with Dr. Vuong in the office. We have been asked to see her in consultation for chest pain. She states last night while sitting in bed developed a pain in the lower jaw that radiated down into the neck, b/l shoulders and anterior chest wall. This was associated with shortness of breath and nausea. Her symptoms persisted for approximately 45 minutes and at that time she decided to call EMS, she was given aspirin in route to the hospital and her pain had almost completely subsided by the time she arrived in the emergency department. She has experienced these symptoms in the past and was evaluated in the hospital and by Dr. Vuong. She underwent a Lexiscan stress test in the office September 17 which was negative for reversible cardiac ischemia with a normal ejection fraction of approximately 65%. EKG reveals sinus mechanism with no acute ST or T-wave abnormalities with nonspecific T-wave abnormalities inferiorly as well as upsloping ST depression. This is consistent with old EKGs. No new changes. Chest x-ray is negative for an acute cardiopulmonary process. Laboratory data reviewed, hemoglobin 12.9, platelets 238, d-dimer negative, sodium 141, potassium 3.6, magnesium 2.0, creatinine 0.7, cardiac enzymes negative 2, lipase 448. Current cardiac medications include aspirin 81 mg daily, atorvastatin 20 mg daily and Lopressor 12.5 mg twice a day. Most recent echocardiogram performed reveals preserved left ventricular systolic function with ejection fraction 55-60%. This was done August 2017. Review of Systems At the time of my exam: CONSTITUTIONAL: Denies fever. Denies chills. EYES: Denies blurred vision. Denies vision changes. Denies eye pain. EARS, NOSE, MOUTH & THROAT: Denies headache. Denies sore throat. Denies ear pain. CARDIOVASCULAR: Denies chest pain. Denies shortness of breath. Denies orthopnea. Denies PND. Denies palpitations. RESPIRATORY: Denies cough. GASTROINTESTINAL: Denies abdominal pain. Denies diarrhea. Denies constipation. Denies nausea. Denies vomiting. MUSCULOSKELETAL: Denies myalgias. INTEGUMENTARY: Denies pruitis. Denies rash. NEUROLOGIC: Denies numbness. Denies tingling. Denies weakness. PSYCHIATRIC: Denies anxiety. Denies depression. ENDOCRINE: Denies fatigue. Denies weight change. Denies polydipsia. Denies polyurina. GENITOURINARY: Denies burning, hematuria or urgency with micturation. HEMATOLOGIC: Denies history of anemia. Denies bleeding. Past Medical History Past Medical History: Asthma, Cancer, COPD, Hyperlipidemia, Hypertension, Seizure Disorder Additional Past Medical History / Comment(s): Last seizure 04/2017, Chronic Pancreatitis. Hx Kidney Stones, Hx Cervical Cancer. HIATAL HERNIA, hx migraines, hx heart murmer, hx diverticulitis, History of Any Multi-Drug Resistant Organisms: None Reported Past Surgical History: Appendectomy, Bowel Resection, Cholecystectomy, Hysterectomy, Orthopedic Surgery Additional Past Surgical History / Comment(s): Surgery on RT Salivary Gland. RT ELBOW NERVE SURG, EGD & COLONOSCOPY, JADEN FUNDLAPLASTY, cervicle cancer surgery 1988, mendez oophorectomy, Past Anesthesia/Blood Transfusion Reactions: Postoperative Nausea & Vomiting ( PONV) Additional Past Anesthesia/Blood Transfusion Reaction / Comment(s): TAKES LONG TIME TO AWAKEN Past Psychological History: Anxiety, Panic Disorder Smoking Status: Former smoker Past Alcohol Use History: None Reported Past Drug Use History: None Reported - Past Family History Mother Sister(s) Family Medical History: Cancer Additional Family Medical History / Comment(s): COLON CANCER. GRANDFATHER ALSO HAD COLON CANCER Mother Family Medical History: Cancer Father Family Medical History: Hypertension Brother(s) Family Medical History: No Reported History Additional Family Medical History / Comment(s): diverticulitis Sister(s) Family Medical History: Cancer Additional Family Medical History / Comment(s): head and neck cancer, brain aneurysm Daughter(s) Family Medical History: No Reported History Son(s) Family Medical History: No Reported History Medications and Allergies Home Medications Medication Instructions Recorded Confirmed Type Brivaracetam [Briviact] 100 mg PO BID 08/12/16 09/24/17 History Cyanocobalamin [Vitamin B-12] 500 mcg PO DAILY 08/05/17 09/24/17 History Pyridoxine [Vitamin B-6] 50 mg PO DAILY 08/05/17 09/24/17 History Desvenlafaxine Succinate [Pristiq] 25 mg PO HS 08/09/17 09/24/17 History Aspirin 81 mg PO DAILY #60 chew 08/11/17 09/24/17 Rx Atorvastatin [Lipitor] 20 mg PO DAILY #30 tab 08/11/17 09/24/17 Rx Budesonide-Formot 160-4.5 Mcg 2 puff INHALATION RT-BID 09/17/17 09/24/17 History [Symbicort 160-4.5 Mcg Inhaler] Metoprolol Tartrate 12.5 mg PO BID 09/17/17 09/24/17 History Montelukast [Singulair] 10 mg PO HS 09/17/17 09/24/17 History Riboflavin [Vitamin B-2] 50 mg PO DAILY 09/24/17 09/24/17 History Allergies Allergy/AdvReac Type Severity Reaction Status Date / Time ciprofloxacin [From Cipro] Allergy Rash/Hives Verified 09/24/17 08:42 ciprofloxacin HCl Allergy Rash/Hives Verified 09/24/17 08:42 [From Cipro] clarithromycin [From Biaxin] Allergy Rash/Hives Verified 09/24/17 08:42 dicyclomine [From Bentyl] Allergy Confusion Verified 09/24/17 08:42 hydrocodone bitartrate Allergy Rash/Hives Verified 09/24/17 08:42 [From Vicodin] hydromorphone HCl Allergy Itching Verified 09/24/17 08:42 [From Dilaudid] levofloxacin [From Levaquin] Allergy Rash/Hives Verified 09/24/17 08:42 lorazepam [From Ativan] Allergy seizures Verified 09/24/17 08:42 meloxicam [From Mobic] Allergy Rash/Hives Verified 09/24/17 08:42 oxycodone Allergy Rash/Hives Verified 09/24/17 08:42 Penicillins Allergy Swelling Verified 09/24/17 08:42 IN THROAT promethazine HCl Allergy seizures Verified 09/24/17 08:42 [From Phenergan] propoxyphene napsylate Allergy Rash/Hives Verified 09/24/17 08:42 [From Darvocet-N] tramadol HCl [From Ultram] Allergy seizures Verified 09/24/17 08:42 ipratropium [From Atrovent] AdvReac pain Verified 09/24/17 08:42 Physical Exam Vitals: Vital Signs Temp Pulse Pulse Pulse Resp BP BP 09/24/17 07:20 98.0 F 87 18 09/24/17 07:15 09/24/17 04:00 98.2 F 90 16 138/78 09/24/17 03:56 16 09/24/17 02:59 97.8 F 90 16 159/74 09/24/17 01:57 97.8 F 93 16 139/76 09/24/17 01:42 98.0 F 88 16 139/76 09/24/17 00:54 16 09/24/17 00:11 97.6 F 100 17 150/89 BP Pulse Ox 09/24/17 07:20 132/63 96 09/24/17 07:15 96 09/24/17 04:00 99 09/24/17 03:56 09/24/17 02:59 99 09/24/17 01:57 99 09/24/17 01:42 99 09/24/17 00:54 09/24/17 00:11 98 Intake and Output 09/23/17 09/24/17 09/24/17 22:59 06:59 14:59 Other: Voiding Method Toilet # Voids 1 Weight 65.317 kg Blood pressure 139/67 heart rate 92 afebrile maintaining oxygen saturation on room air GENERAL: This is a 62-year-old female in no apparent distress at the time of my examination. HEENT: Head is atraumatic, normocephalic. Pupils are equal, round. Sclerae anicteric. Conjunctivae are clear. Mucous membranes of the mouth are moist. Neck is supple. There is no jugular venous distention. No carotid bruit is heard. LUNGS: Clear to auscultation no wheezes, rales or rhonchi. No chest wall tenderness is noted on palpation or with deep breathing. Diminished bilaterally. HEART: Regular rate and rhythm without murmurs, rubs or gallops. S1 and S2 heard. ABDOMEN: Soft, nontender. Bowel sounds are heard. No organomegaly noted. EXTREMITIES: No evidence of peripheral edema and no calf tenderness noted. VASCULAR: Radial and dorsalis pedis pulses palpated, no evidence of clubbing. NEUROLOGIC: Patient is awake, alert and oriented x3. Results 09/24/17 00:43 05/17/18 00:43 Cardiac Enzymes 09/24/17 09/24/17 Range/Units 00:43 00:43 AST 32 (14-36) U/L CK-MB (CK-2) 2.2 (0.0-2.4) ng/mL Troponin I <0.012 (0.000-0.034) ng/mL Coagulation 09/24/17 Range/Units 00:43 PT 9.6 (9.0-12.0) sec APTT 18.6 L (22.0-30.0) sec CBC 09/24/17 Range/Units 00:43 WBC 8.8 (3.8-10.6) k/uL RBC 4.12 (3.80-5.40) m/uL Hgb 12.9 (11.4-16.0) gm/dL Hct 38.0 (34.0-46.0) % Plt Count 238 (150-450) k/uL Comprehensive Metabolic Panel 09/24/17 Range/Units 00:43 Sodium 141 (137-145) mmol/L Potassium 3.6 (3.5-5.1) mmol/L Chloride 107 (98-107) mmol/L Carbon Dioxide 24 (22-30) mmol/L BUN 16 (7-17) mg/dL Creatinine 0.70 (0.52-1.04) mg/dL Glucose 107 H (74-99) mg/dL Calcium 9.5 (8.4-10.2) mg/dL AST 32 (14-36) U/L ALT 51 (9-52) U/L Alkaline Phosphatase 94 (38-126) U/L Total Protein 5.6 L (6.3-8.2) g/dL Albumin 4.0 (3.5-5.0) g/dL Current Medications Generic Name Dose Route Start Last Admin Trade Name Freq PRN Reason Stop Dose Admin Acetaminophen 650 mg 09/24/17 03:55 09/24/17 04:09 Tylenol Tab PO 650 mg Q4HR PRN Administration Fever and/ or Pain Albuterol Sulfate 2.5 mg 09/24/17 02:29 Ventolin Nebulized INHALATION Q6HR PRN Shortness Of Breath Aspirin 325 mg 09/25/17 09:00 Aspirin PO DAILY FLAKITA Atorvastatin Calcium 20 mg 09/24/17 09:00 Lipitor PO DAILY FLAKITA Budesonide/Formoterol Fumarate 2 puff 09/24/17 08:00 09/24/17 07:15 Symbicort 160-4.5 Mcg Inhaler INHALATION 2 puff RT-BID FLAKITA Administration Cyanocobalamin 500 mcg 09/24/17 09:00 Vitamin B-12 PO DAILY FLAKITA Fluticasone Propionate 1 spray 09/24/17 02:29 Flonase Nasal [place] EA NOSTRIL DAILY PRN Nasal Congestion Metoprolol Tartrate 12.5 mg 09/24/17 09:00 Lopressor PO BID FLAKITA Montelukast Sodium 10 mg 09/24/17 21:00 Singulair PO HS FLAKITA Nitroglycerin 0.4 mg 09/24/17 02:26 Nitrostat SUBLINGUAL Q5M PRN Chest Pain Non-Formulary Medication 100 mg 09/24/17 09:00 Brivaracetam [Briviact] PO BID FLAKITA Non-Formulary Medication 25 mg 09/24/17 21:00 Desvenlafaxine Succinate [Pristiq] PO HS FLAKITA Pyridoxine HCl 50 mg 09/24/17 09:00 Vitamin B-6 PO DAILY FLAKITA Intake and Output 09/23/17 09/24/17 09/24/17 22:59 06:59 14:59 Other: Voiding Method Toilet # Voids 1 Weight 65.317 kg 09/24/17 00:43 09/24/17 00:43 Assessment and Plan Assessment: ASSESSMENT 1. Chest pain, atypical. Recent normal Lexiscan stress test last week in the office. An acute coronary event has been ruled out. 2. Hypertension 3. Dyslipidemia 4. COPD 5. Former tobacco use 6. Chronic pancreatitis with elevated lipase on admission 448 PLAN An acute coronary event has been ruled out with no EKG evidence of acute ischemia and negative cardiac enzymes. Continue with aspirin, atorvastatin and Lopressor as was previously ordered. Check lipid panel. Stable from a cardiac perspective. Follow up with Dr. Vuong upon discharge. Thank you kindly for this consultation. Nurse Practitioner note has been reviewed, I agree with a documented findings and plan of care. Patient was seen and examined.
[2017-09-24 12:25] VITALS: PULSE 90
[2017-09-24 12:25] LABS: Cholesterol 136 mg/dL (<200); HDL Cholesterol 87 mg/dL (40-60); LDL Cholesterol,Calculated 40 mg/dL (0-99); Triglycerides 45 mg/dL (<150)
--- NOTE | 2017-09-24 13:17 | P.CRDCN ---
History of Present Illness History of present illness: Patient interviewed and examined. Atypical chest discomfort with 2 serial ECGs that are normal and 3 serial cardiac enzymes that are normal Stress test in the office was normal Suggest patient to go home and follow with a primary care physician and follow with Dr. Ascencio as previously scheduled Past Medical History Past Medical History: Asthma, Cancer, COPD, Hyperlipidemia, Hypertension, Seizure Disorder Additional Past Medical History / Comment(s): Last seizure 04/2017, Chronic Pancreatitis. Hx Kidney Stones, Hx Cervical Cancer. HIATAL HERNIA, hx migraines, hx heart murmer, hx diverticulitis, History of Any Multi-Drug Resistant Organisms: None Reported Past Surgical History: Appendectomy, Bowel Resection, Cholecystectomy, Hysterectomy, Orthopedic Surgery Additional Past Surgical History / Comment(s): Surgery on RT Salivary Gland. RT ELBOW NERVE SURG, EGD & COLONOSCOPY, JADEN FUNDLAPLASTY, cervicle cancer surgery 1988, mendez oophorectomy, Past Anesthesia/Blood Transfusion Reactions: Postoperative Nausea & Vomiting ( PONV) Additional Past Anesthesia/Blood Transfusion Reaction / Comment(s): TAKES LONG TIME TO AWAKEN Past Psychological History: Anxiety, Panic Disorder Smoking Status: Former smoker Past Alcohol Use History: None Reported Past Drug Use History: None Reported - Past Family History Mother Sister(s) Family Medical History: Cancer Additional Family Medical History / Comment(s): COLON CANCER. GRANDFATHER ALSO HAD COLON CANCER Mother Family Medical History: Cancer Father Family Medical History: Hypertension Brother(s) Family Medical History: No Reported History Additional Family Medical History / Comment(s): diverticulitis Sister(s) Family Medical History: Cancer Additional Family Medical History / Comment(s): head and neck cancer, brain aneurysm Daughter(s) Family Medical History: No Reported History Son(s) Family Medical History: No Reported History Medications and Allergies Home Medications Medication Instructions Recorded Confirmed Type RX: Brivaracetam [Briviact] 100 mg PO BID 08/12/16 09/24/17 History RX: Cyanocobalamin [Vitamin B-12] 500 mcg PO DAILY 08/05/17 09/24/17 History RX: Pyridoxine [Vitamin B-6] 50 mg PO DAILY 08/05/17 09/24/17 History RX: Desvenlafaxine Succinate 25 mg PO HS 08/09/17 09/24/17 History [Pristiq] RX: Aspirin 81 mg PO DAILY #60 chew 08/11/17 09/24/17 Rx RX: Atorvastatin [Lipitor] 20 mg PO DAILY #30 tab 08/11/17 09/24/17 Rx Budesonide-Formot 160-4.5 Mcg 2 puff INHALATION RT-BID 09/17/17 09/24/17 History [Symbicort 160-4.5 Mcg Inhaler] Montelukast [Singulair] 10 mg PO HS 09/17/17 09/24/17 History RX: Metoprolol Tartrate 12.5 mg PO BID 09/17/17 09/24/17 History Riboflavin [Vitamin B-2] 50 mg PO DAILY 09/24/17 09/24/17 History Allergies Allergy/AdvReac Type Severity Reaction Status Date / Time ciprofloxacin [From Cipro] Allergy Rash/Hives Verified 09/24/17 08:42 ciprofloxacin HCl Allergy Rash/Hives Verified 09/24/17 08:42 [From Cipro] clarithromycin [From Biaxin] Allergy Rash/Hives Verified 09/24/17 08:42 dicyclomine [From Bentyl] Allergy Confusion Verified 09/24/17 08:42 hydrocodone bitartrate Allergy Rash/Hives Verified 09/24/17 08:42 [From Vicodin] hydromorphone HCl Allergy Itching Verified 09/24/17 08:42 [From Dilaudid] levofloxacin [From Levaquin] Allergy Rash/Hives Verified 09/24/17 08:42 lorazepam [From Ativan] Allergy seizures Verified 09/24/17 08:42 meloxicam [From Mobic] Allergy Rash/Hives Verified 09/24/17 08:42 oxycodone Allergy Rash/Hives Verified 09/24/17 08:42 Penicillins Allergy Swelling Verified 09/24/17 08:42 IN THROAT promethazine HCl Allergy seizures Verified 09/24/17 08:42 [From Phenergan] propoxyphene napsylate Allergy Rash/Hives Verified 09/24/17 08:42 [From Darvocet-N] tramadol HCl [From Ultram] Allergy seizures Verified 09/24/17 08:42 ipratropium [From Atrovent] AdvReac pain Verified 09/24/17 08:42 Physical Exam Vitals: Vital Signs Temp Pulse Pulse Pulse Resp BP BP 09/24/17 12:00 90 92 18 09/24/17 11:35 98.3 F 92 18 09/24/17 08:00 90 87 18 09/24/17 07:20 98.0 F 87 18 09/24/17 07:15 09/24/17 04:00 98.2 F 90 16 138/78 09/24/17 03:56 16 09/24/17 02:59 97.8 F 90 16 159/74 09/24/17 01:57 97.8 F 93 16 139/76 09/24/17 01:42 98.0 F 88 16 139/76 09/24/17 00:54 16 09/24/17 00:11 97.6 F 100 17 150/89 BP Pulse Ox 09/24/17 12:00 09/24/17 11:35 139/67 97 09/24/17 08:00 09/24/17 07:20 132/63 96 09/24/17 07:15 96 09/24/17 04:00 99 09/24/17 03:56 09/24/17 02:59 99 09/24/17 01:57 99 09/24/17 01:42 99 09/24/17 00:54 09/24/17 00:11 98 Intake and Output 09/23/17 09/24/17 09/24/17 22:59 06:59 14:59 Other: Voiding Method Toilet Toilet # Voids 1 Weight 65.317 kg Results 09/24/17 00:43 09/24/17 00:43 Cardiac Enzymes 09/24/17 09/24/17 09/24/17 Range/Units 00:43 00:43 06:58 AST 32 (14-36) U/L CK-MB (CK-2) 2.2 2.1 (0.0-2.4) ng/mL Troponin I <0.012 <0.012 (0.000-0.034) ng/mL 09/24/17 Range/Units 11:01 AST (14-36) U/L CK-MB (CK-2) 1.8 (0.0-2.4) ng/mL Troponin I <0.012 (0.000-0.034) ng/mL Coagulation 09/24/17 Range/Units 00:43 PT 9.6 (9.0-12.0) sec APTT 18.6 L (22.0-30.0) sec Lipids 09/24/17 Range/Units 07:05 Triglycerides 45 (<150) mg/dL Cholesterol 136 (<200) mg/dL HDL Cholesterol 87 H (40-60) mg/dL CBC 09/24/17 Range/Units 00:43 WBC 8.8 (3.8-10.6) k/uL RBC 4.12 (3.80-5.40) m/uL Hgb 12.9 (11.4-16.0) gm/dL Hct 38.0 (34.0-46.0) % Plt Count 238 (150-450) k/uL Comprehensive Metabolic Panel 09/24/17 Range/Units 00:43 Sodium 141 (137-145) mmol/L Potassium 3.6 (3.5-5.1) mmol/L Chloride 107 (98-107) mmol/L Carbon Dioxide 24 (22-30) mmol/L BUN 16 (7-17) mg/dL Creatinine 0.70 (0.52-1.04) mg/dL Glucose 107 H (74-99) mg/dL Calcium 9.5 (8.4-10.2) mg/dL AST 32 (14-36) U/L ALT 51 (9-52) U/L Alkaline Phosphatase 94 (38-126) U/L Total Protein 5.6 L (6.3-8.2) g/dL Albumin 4.0 (3.5-5.0) g/dL Current Medications Generic Name Dose Route Start Last Admin Trade Name Freq PRN Reason Stop Dose Admin Acetaminophen 650 mg 09/24/17 03:55 09/24/17 11:33 Tylenol Tab PO 650 mg Q4HR PRN Administration Fever and/ or Pain Albuterol Sulfate 2.5 mg 09/24/17 02:29 Ventolin Nebulized INHALATION Q6HR PRN Shortness Of Breath Aspirin 81 mg 09/25/17 09:00 Aspirin PO DAILY FLAKITA Atorvastatin Calcium 20 mg 09/24/17 09:00 09/24/17 10:43 Lipitor PO 20 mg DAILY FLAKITA Administration Budesonide/Formoterol Fumarate 2 puff 09/24/17 08:00 09/24/17 07:15 Symbicort 160-4.5 Mcg Inhaler INHALATION 2 puff RT-BID [facility] Administration Cyanocobalamin 500 mcg 09/24/17 09:00 09/24/17 10:42 Vitamin B-12 PO 500 mcg DAILY [facility] Administration Fluticasone Propionate 1 spray 09/24/17 02:29 Flonase Nasal [place] EA NOSTRIL DAILY PRN Nasal Congestion Metoprolol Tartrate 12.5 mg 09/24/17 09:00 09/24/17 10:42 Lopressor PO 12.5 mg BID [facility] Administration Montelukast Sodium 10 mg 09/24/17 21:00 Singulair PO [facility] Nitroglycerin 0.4 mg 09/24/17 02:26 Nitrostat SUBLINGUAL Q5M PRN Chest Pain Non-Formulary Medication 100 mg 09/24/17 09:00 09/24/17 10:43 Brivaracetam [Briviact] PO 100 mg BID [facility] Administration Non-Formulary Medication 25 mg 09/24/17 21:00 Desvenlafaxine Succinate [Pristiq] PO [facility] Pyridoxine HCl 50 mg 09/24/17 09:00 09/24/17 10:42 Vitamin B-6 PO 50 mg DAILY [facility] Administration Intake and Output 09/23/17 09/24/17 09/24/17 22:59 06:59 14:59 Other: Voiding Method Toilet Toilet # Voids 1 Weight 65.317 kg 09/24/17 00:43 09/24/17 00:43
--- NOTE | 2017-09-24 17:45 | HP ---
HISTORY AND PHYSICAL HISTORY AND PHYSICAL AND DISCHARGE SUMMARY: DATE OF ADMISSION: 09/24/17 DATE OF DISCHARGE: 09/24/17 DATE OF SERVICE: 09/24/17 PRESENTING COMPLAINT: Chest pain. HISTORY OF PRESENTING COMPLAINT: A very pleasant 62-year-old patient who follows with Dr. 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 Chronic stable medical conditions include COPD, hyperlipidemia, hypertension, seizure last one being in April of 2017, hiatal hernia. The patient was sleeping around 11 o'clock last night when she felt pain in the jaw, neck and upper part of the chest. There was no dizziness. Had some nausea. No short of breath. No perspiration. Decided to call EMS. EMS gave 3 aspirins and in about half an hour patient chest pain subsided. The patient is rather active. Denies any prior cardiac history. The patient in fact had a stress test about a week ago at Dr. Vuong's office at [facility]. The patient's symptoms are completely resolved. REVIEW OF SYSTEMS: CONSTITUTIONAL: None. HEENT: None. RESPIRATORY: None. CARDIOVASCULAR: As above. Gastrointestinal none. Genitourinary none. Musculoskeletal none. Dermatological, hematologic, lymphatics none. Psychiatry none. Neurological none. PAST HISTORY: COPD, hyperlipidemia, hypertension, seizure disorder, hiatal hernia, diverticulitis, kidney stones, chronic pancreatitis. PAST SURGICAL HISTORY: Appendectomy, bowel resection, cholecystectomy, hysterectomy, surgery in the right salivary gland, right elbow nerve surgery, EGD, colonoscopy, Justin fundoplasty, cervical cancer surgery, bilateral oophorectomy. PSYCH HISTORY: Anxiety, anxiety disorder. SOCIAL HISTORY: Smoked for about 20 years about a pack a day. The patient quit in 1998. FAMILY HISTORY: Colon cancer. HOME MEDICATIONS: 1. Vitamin B2 50 mg a day. 2. Vitamin B6 50 mg a day. 3. Singulair 10 mg q.h.s. 4. Metoprolol 12.5 p.o. b.i.d. 5. Pristiq 25 mg p.o. q.h.s. 6. Vitamin B12 500 mcg a day. 7. Symbicort 160/4.5, 2 puffs b.i.d. 8. Briviact 100 mg b.i.d. 9. Lipitor 20 mg daily. 10.Aspirin 81 mg p.o. daily. 11.Nitrostat 0.4 sublingual q.5 p.r.n. ALLERGIES: LIST IS LONG INCLUDING CIPRO, CLINDAMYCIN, DICYCLOMINE, VICODIN, DILAUDID, LEVAQUIN, ATIVAN, MOBIC, OXYCODONE, PENICILLIN, PHENERGAN, DARVOCET-N 100, ULTRAM, ALL OF THESE APPEARS TO BE SIDE EFFECT. PHYSICAL EXAMINATION: Temperature 98, pulse 87, respiratory 18, blood pressure 132/63, pulse ox 96% on room air. General appearance: Average build, sitting up, not in distress. Eyes: Pupils equal. Conjunctivae normal. HEENT: External appearance of nose and ears normal. Oral cavity normal. Neck JVD not raised. Mass not palpable. Respiratory effort normal. Lungs slightly decreased breath sounds. Cardiovascular 1st and 2nd sounds no edema. ABDOMEN: Soft, nontender. Liver and spleen not palpable. Lymphatics: No lymph nodes palpable in the neck and axilla. Psychiatry alert and oriented x3. Mood and affect normal. Neurological pupils equal. Cranial nerves grossly intact. Power and sensation grossly intact. INVESTIGATIONS: White count 8.8, hemoglobin 12.9, potassium 3.6, BUN and creatinine is normal. Troponin x3 negative. EKG normal sinus rhythm. ASSESSMENT: 1. Atypical throat pain, could be from reflex in a patient who recently had a stress test results for which were initially pending. 2. Chronic obstructive pulmonary disease in an ex-smoker. 3. Hyperlipidemia. 4. Essential hypertension. 5. Hiatal hernia. PLAN: Cardiology was consulted. The patient has seen by Dr. Vuong. He did obtain patient's stress test from a week ago that was negative and said the patient can go home. The patient will follow up with him in the office. DISCHARGE MEDICATIONS: 1. Briviact 100 mg p.o. b.i.d. 2. Vitamin B12 500 mcg a day. 3. Vitamin B6 50 mg p.o. daily. 4. Pristiq 25 mg p.o. q.h.s. 5. Aspirin 81 mg daily. 6. Lipitor 20 mg p.o. daily. 7. Symbicort 160/4.5, 2 puffs b.i.d. 8. Metoprolol tartrate 12.5 p.o. b.i.d. 9. Singulair 10 mg q.h.s. 10.Nitrostat 0.4 sublingual q.5 p.r.n. 11.Vitamin D2 50 mg p.o. daily. FOLLOWUP: Follow up with Dr. Gomez in 3 days, follow up with Dr. Vuong in 1 week. [place] home. Copy Dr. Alex Gomez. MMODL / IJN: [id number] /
[2017-09-24] MEDS ORDERED: MONTELUKAST 10 MG TAB PO SCH (21:00)
[2017-09-24] MEDS ORDERED: NON-FORMULARY DRUG (Desvenlafaxine Succinate [Pristiq] 25 MG) PO SCH (21:00)
--- NOTE | 2017-09-24 21:51 | DS ---
DISCHARGE SUMMARY ADDENDUM: My H and P dictated on this patient earlier today is also discharge summary on this patient, so combine H and P and the discharge summary. MMODL / IJN: [id number] /
[2017-09-25] MEDS ORDERED: ASPIRIN 325 MG TAB PO SCH (09:00)
[2017-09-25] MEDS ORDERED: ASPIRIN 81 MG PO SCH (09:00)
== END 2017-09-24 16:50 | disposition home or self-care (01) ==
LOC: EC 00:10 → 3OBS 02:26
PROVIDERS: ADMIT Hospitalist; ATTEND Hospitalist
DX: R07.89 Other chest pain (principal); J44.9 Chronic obstructive pulmonary disease, unspecified; I10 Essential (primary) hypertension; K86.1 Other chronic pancreatitis; K44.9 Diaphragmatic hernia without obstruction or gangrene; G40.909 Epilepsy, unspecified, not intractable, without status epilepticus; E78.5 Hyperlipidemia, unspecified; Z85.41 Personal history of malignant neoplasm of cervix uteri; G43.909 Migraine, unspecified, not intractable, without status migrainosus; K57.90 Diverticulosis of intestine, part unspecified, without perforation or abscess without bleeding; F41.0 Panic disorder [episodic paroxysmal anxiety]; F41.9 Anxiety disorder, unspecified; Z79.51 Long term (current) use of inhaled steroids; Z79.899 Other long term (current) drug therapy; Z79.82 Long term (current) use of aspirin; Z90.49 Acquired absence of other specified parts of digestive tract; Z88.0 Allergy status to penicillin; Z88.1 Allergy status to other antibiotic agents; Z88.5 Allergy status to narcotic agent; Z88.6 Allergy status to analgesic agent; Z88.8 Allergy status to other drugs, medicaments and biological substances; Z87.891 Personal history of nicotine dependence; Z87.19 Personal history of other diseases of the digestive system; Z80.0 Family history of malignant neoplasm of digestive organs; Z82.49 Family history of ischemic heart disease and other diseases of the circulatory system; Z83.79 Family history of other diseases of the digestive system
CPT/HCPCS: 99285 ×2; 36415; 94640; 94760; 93005; 85379; 80061; 80053; 82150; 82550; 82553; 83690; 83735; 84484; 85025; 85610; 85730; 71046; G0378

== ENCOUNTER 2017-10-14 09:46 | Day surgery (SDC) | payer OTHER ==
[2017-10-08 11:53] VITALS: BMI 26.3
[2017-10-14] MEDS ORDERED: LACTATED RINGERS 1,000 ML IV ONE (10:09)
[2017-10-14 10:31] VITALS: TEMP 98.2
--- NOTE | 2017-10-14 11:21 | P.PCN ---
Date of Procedure: 10/14/17 Surgeon: Brandon Louie Pathology: none sent Condition: stable Disposition: PACU Description of Procedure: PROCEDURE: Ultrasound guided right rectus sheath block. PREOPERATIVE DIAGNOSIS: 1- chronic abdominal pain after hiatal hernia repair POSTOPERATIVE DIAGNOSIS: 1- chronic abdominal pain after hiatal hernia repair ANESTHESIA: Local anesthesia + IV sedation with Versed EBL: None. PROCEDURE INDICATION: History of pain in the right upper abdomen after previous hiatal hernia repair, unresponsive to more conservative treatment measures. Ultrasound was used to verify needle position and maximize safety. No use of blood thinners. PROCEDURE DESCRIPTION: The patient was seen and identified in the preoperative area. Risks, benefits, complications, and alternatives were discussed with the patient, with risks including but not limited to bleeding, infection, nerve damage, incomplete pain relief, and allergic reactions to medications. The patient agreed to proceed with the procedure and signed the consent. IV was started, and vital signs were stable. Patient was taken to the OR and time out was completed. Using ultrasound just to the right of the abdominal midline, the subcutaneous fat, rectus abdominis muscle, and peritoneum were identified. After localization with 1% lidocaine, a 4-inch 22 gauge spinal needle was advanced under direct ultrasound guidance to the posterior (deep) edge of the rectus abdominis. Subsequently, and after negative aspiration of air and blood, 10 mL of a block solution containing Kenalog 40 mg and 9 mL of 0.5% preservative-free ropivacaine, was injected under direct ultrasound guidance. Needle was then removed intact. Skin was cleansed and bandages were applied. There were no complications. DISPOSITION / PLANS: The patient was placed in a supine position and transferred to the recovery area in a stable condition for observation and was discharged from the recovery room after meeting discharge criteria. Home discharge instructions given to the patient by the staff. The patient was reexamined prior to discharge and there were no issues. The patient will schedule a third rectus sheath block in 2-4 weeks.
[2017-10-14] MEDS ORDERED: IV FLUID CONTINUATION 800 ML IV ONE (11:38)
[2017-10-14 11:42] VITALS: RESP 18
[2017-10-14 12:04] VITALS: BP 140/83; PULSE 83
== END 2017-10-14 12:23 | disposition home or self-care (01) ==
LOC: ORPAIN 09:46
PROVIDERS: ATTEND Anesthesiology
DX: G89.28 Other chronic postprocedural pain (principal); R10.9 Unspecified abdominal pain; Z88.1 Allergy status to other antibiotic agents; Z88.0 Allergy status to penicillin; Z88.8 Allergy status to other drugs, medicaments and biological substances
CPT/HCPCS: 64486; J2250; J3301; 20550; 99152

== ENCOUNTER → 2017-10-22 | Outpatient (CLI) | payer OTHER ==
[2017-10-22 12:30] VITALS: BP 129/77; PULSE 84; RESP 16
--- NOTE | 2017-10-22 13:08 | P.PAINPG ---
Subjective Progress Note Date: 10/22/17 Patient seen and examined today for follow-up visit with regards to right abdominal pain. Patient had umbilical hernia repair over 2 years ago, and has had chronic constant pain in her right upper quadrant around the umbilicus. Patient states severity is 7/10, ascribes it as a throbbing aching nagging type pain in her right upper quadrant. Patient has had 2 right rectus sheath blocks performed in our clinic, states that the first one was of most benefit, and that the second one provided only with to 3 days of relief. Patient had this issue treated by her primary care physician Raoul year and a half ago in which they blindly did trigger point injections in her right abdomen once a week for 3 weeks and then went to physical therapy. She states that she had about a year relief when she had that done, and it was reaggravated when she was ill and having chronic coughing spells. I discussed with patient performing a right-sided rectus sheath block again and the next 2-4 weeks, patient was inquiring about medication for pain, described discussed with her that opiates were not appropriate for this type of abdominal pain and to continue with regimen of extra Tylenol and ibuprofen when necessary. I prescribed lidocaine topical cream to be applied as needed to help with some of the myofascial pain. Physical exam: Vital signs: Stable, reviewed General: In O 3 no acute distress Cardio: Regular rate and rhythm, no murmurs Respiratory: Nonlabored, clear to auscultation bilateral Abdominal: tender to palpation right upper quadrant, no rebound. Integumentary: Surgical scars identified appropriate no erythema Psychiatric: Normal mood and affect Objective - Vital Signs Vital signs: Vital Signs Temp Pulse 84 10/22/17 12:18 Resp 16 10/22/17 12:18 BP 129/77 10/22/17 12:18 Pulse Ox 96 10/22/17 12:18 Intake & Output 10/21/17 10/22/17 10/22/17 18:59 06:59 18:59 Weight 65.317 kg Assessment and Plan Assessment: 1. Chronic post surgical pain 2. Chronic abdominal pain Plan: 1. Medications: We'll prescribed lidocaine 5% topical cream, continue with ibuprofen and Tylenol when necessary 2. Investigations: None 3. Intervention: Will perform a right rectus sheath block in 2 weeks PQRS Measure Charge Sheet PQRS Narrative: Smoking Status Former smoker Do You Want the Pneumonia No Vaccine AT THIS TIME? Blood Pressure 129/77 Pain Intensity [Right Upper 9 Lateral Abdomen] Scale Used Numeric (1 - 10) Hx Alcohol Use (MH) No Home Medications: Ambulatory Orders Brivaracetam [Briviact] 100 mg PO BID 08/12/16 Cyanocobalamin [Vitamin B-12] 500 mcg PO DAILY 08/05/17 Pyridoxine [Vitamin B-6] 50 mg PO DAILY 08/05/17 Desvenlafaxine Succinate [Pristiq] 25 mg PO HS 08/09/17 Aspirin 81 mg PO DAILY #60 chew 08/11/17 Atorvastatin [Lipitor] 20 mg PO DAILY #30 tab 08/11/17 Budesonide-Formot 160-4.5 Mcg [Symbicort 160-4.5 Mcg Inhaler] 2 puff INHALATION RT-BID 09/17/17 Metoprolol Tartrate 12.5 mg PO BID 09/17/17 Montelukast [Singulair] 10 mg PO HS 09/17/17 Nitroglycerin Sl Tabs [Nitrostat] 0.4 mg SUBLINGUAL Q5M PRN #25 tab 09/24/17 Riboflavin [Vitamin B-2] 50 mg PO DAILY 09/24/17 Acetaminophen Tab [Tylenol Tab] 500 mg PO HS PRN 10/22/17 Albuterol Inhaler [Ventolin Hfa Inhaler] 1 - 2 puff INHALATION RT-Q6H PRN Ibuprofen [Motrin] 600 mg PO HS PRN 10/22/17 Controlled Substance Measures - Controlled Substance Measures Is patient prescribed a controlled substance at discharge?: No
== END | disposition home or self-care (01) ==
LOC: PNWHC3 11:59
PROVIDERS: ATTEND Anesthesiology
DX: R10.9 Unspecified abdominal pain (principal); G89.29 Other chronic pain; Z79.899 Other long term (current) drug therapy; Z79.82 Long term (current) use of aspirin
CPT/HCPCS: 99211

== ENCOUNTER 2017-11-03 08:04 | Day surgery (SDC) | payer OTHER ==
[2017-10-28 15:28] VITALS: BMI 26.3
[2017-11-03 09:16] VITALS: RESP 16; TEMP 98.3
--- NOTE | 2017-11-03 10:14 | P.PCN ---
Date of Procedure: 11/03/17 Procedure(s) Performed: Procedure= right rectus abdominis sheathi block under ultrasound guidance. Preoperative diagnoses= chronic severe right upper quadrant pain, after hital hernia surgery. Postoperative diagnoses= same as preop diagnosis. Anesthesia= local infiltration with ropivacaine 0.5% 2 mL. Complications= none . Description of the procedure= risks and benefits and alternatives of the procedure discussed with the patient , including but not limited to risk of infection and bleeding and not complete pain relief and the risk of ALLERGIC reaction to the medication ,she agreed with the preceding, patient taken to the procedure room placed in supine position the right abdominal area prepped with chlorhexidine 3, then under strict sterile technique using ultrasound guidance , local infiltration of the skin and subcu interstitial with ropivacaine 0.5% to allow for skin and subcu infiltrations, using 26-gauge needle then 21-gauge PUjunk needle, 4 inches long advanced slowly under ultrasound guidance, and placed at the the sheath of the abdominis muscle, then after negative aspiration and after appropriate needle placement confirmed total of 15 ML of ropivacaine 0.5% mixed with 80 mg of Kenalog injected after negative aspiration patient tolerated the procedure well without any complete patient. And she will follow up with the pain clinic in a few weeks
[2017-11-03 10:15] VITALS: BP 134/72; PULSE 71
== END 2017-11-03 10:38 | disposition home or self-care (01) ==
LOC: ORPAIN 08:04
PROVIDERS: ATTEND Specialist
DX: G89.29 Other chronic pain (principal); R10.11 Right upper quadrant pain
CPT/HCPCS: 64486; J1030; 20550

== ENCOUNTER → 2017-12-03 | Outpatient (CLI) | payer OTHER ==
[2017-12-03 14:55] VITALS: BP 135/82; PULSE 91; RESP 18
--- NOTE | 2017-12-03 15:25 | P.PAINPG ---
Subjective Progress Note Date: 12/03/17 Principal diagnosis: Right-sided abdominal pain This a very pleasant 62-year-old woman with a history of long-standing right upper quadrant abdominal pain of myofascial origin that stems from her previous procedure of a Justin fundoplication. She recently underwent trigger point injections in this area. She says that this worked very well to relieve the anterior component of her pain. She now reports having myofascial pain from her mid axillary line posteriorly. She would like to have a repeat of her procedure to help reduce this. Objective - Vital Signs Vital signs: Vital Signs Temp Pulse 91 12/03/17 14:48 Resp 18 12/03/17 14:48 BP 135/82 12/03/17 14:48 Pulse Ox 97 12/03/17 14:48 Intake & Output 12/02/17 12/03/17 12/03/17 18:59 06:59 18:59 Weight 64.41 kg - Exam General: The patient is alert and oriented. Patient is not sedated Patient answers all question appropriately. Cardiac: Heart is regular in rate and rhythm Respiratory: Clear to auscultation. No audible wheezes. Abdomen: Soft nontender nondistended. She is tender to palpation in the mid axillary line at approximately T10 vertebral body. This is clearly identified. This is on the right side. There are no obvious sores or lesions. Lower extremities: Strength is normal bilaterally. Sensation is normal bilaterally. Reflexes are preserved and symmetric bilaterally. Straight leg raise is negative bilaterally. Assessment and Plan (1) Myofascial pain syndrome Narrative/Plan: Plan of Care We will schedule the patient for repeat of trigger point injections in her abdomen. We will schedule 3 of these to be done approximately one week apart. We will minimize her dose of steroids for these to make this an appropriate procedure. These will be done without any sedation so the patient can help identify the painful spots for her. I discussed this with her and she is in agreement with this plan of care. Current Visit: Yes Status: Acute Code(s): M79.1 - MYALGIA SNOMED Code(s): 311208207 (2) Intractable abdominal pain Current Visit: No Status: Acute Code(s): R10.9 - UNSPECIFIED ABDOMINAL PAIN SNOMED Code(s): 51546078 PQRS Measure Charge Sheet Measure #130: Documentation of Current Meds in Medical Chart: Patient not eligible for medications to be documented Measure #226: Tobacco Use: Screen & Cessation Intervention: Pt not a tobacco user Measure #111: Pneumonia Vaccination: Pneumococcal vaccine NOT administered or previously given Measure #47: Advance Care Plan: Advance care planning discussed & documented, pt chose/unable to give Measure #412: Opioid Treatment Agreement: No documentation of signed opioid treatment agreement Measure #408: Opioid Therapy Follow-up Evaluation: Patient had NO f/u eval minimum every 3 months during opioid therapy Measure #317: Preventitive Care & Scrn High Bld Press & F/U: Normal blood pressure, f/u not required Measure #128: Body Mass Index (BMI) Screening & Follow-up: BMI documented ABOVE normal parameters - f/u documented Measure #131: Pain Assessment & Follow-up: Pain positive & plan documented Measure #431: Unhealthy Alcohol Use Preventative Care & Scrn: Patient not identified as an unhealthy alcohol user PQRS Narrative: Smoking Status Former smoker Do You Want the Pneumonia Vaccine Up to Date Vaccine AT THIS TIME? Blood Pressure 135/82 Pain Intensity [Right 0 Generalized] Scale Used Numeric (1 - 10) Hx Alcohol Use (MH) No Home Medications: Ambulatory Orders Brivaracetam [Briviact] 100 mg PO BID 08/12/16 Cyanocobalamin [Vitamin B-12] 500 mcg PO DAILY 08/05/17 Pyridoxine [Vitamin B-6] 50 mg PO DAILY 08/05/17 Desvenlafaxine Succinate [Pristiq] 25 mg PO HS 08/09/17 Aspirin 81 mg PO DAILY #60 chew 08/11/17 Atorvastatin [Lipitor] 20 mg PO DAILY #30 tab 08/11/17 Budesonide-Formot 160-4.5 Mcg [Symbicort 160-4.5 Mcg Inhaler] 2 puff INHALATION RT-BID 09/17/17 Metoprolol Tartrate 12.5 mg PO BID 09/17/17 Montelukast [Singulair] 10 mg PO HS 09/17/17 Nitroglycerin Sl Tabs [Nitrostat] 0.4 mg SUBLINGUAL Q5M PRN #25 tab 09/24/17 Riboflavin [Vitamin B-2] 50 mg PO DAILY 09/24/17 Acetaminophen Tab [Tylenol Tab] 500 mg PO HS PRN 10/22/17 Albuterol Inhaler [Ventolin Hfa Inhaler] 1 - 2 puff INHALATION RT-Q6H PRN Ibuprofen [Motrin] 600 mg PO HS PRN 10/22/17 Lidocaine [Lidocaine 5% Rectal Cream] 1 applic TOPICAL QID PRN 10/22/17 Ondansetron [Zofran] 1 tab PO DAILY 12/03/17 Pantoprazole [Protonix] 1 tab PO DAILY 12/03/17 Ranitidine HCl [Zantac] 1 tab PO BID 12/03/17 Controlled Substance Measures - Controlled Substance Measures Is patient prescribed a controlled substance at discharge?: No
== END | disposition home or self-care (01) ==
LOC: PNWHC3 14:33
PROVIDERS: ATTEND Pain Medicine Pain Medicine
DX: R10.11 Right upper quadrant pain (principal); M79.1 Myalgia; Z87.891 Personal history of nicotine dependence; Z79.82 Long term (current) use of aspirin; Z79.899 Other long term (current) drug therapy
CPT/HCPCS: 99211

== ENCOUNTER 2018-01-01 10:02 | Day surgery (SDC) | payer OTHER ==
[2017-12-29 17:41] VITALS: BMI 26.2
--- NOTE | 2018-01-01 00:44 | P.GSHP ---
History of Present Illness H&P Date: 01/01/18 CHIEF COMPLAINT: GERD HISTORY OF PRESENT ILLNESS: The patient is a 62-year-old female who presents reports gastroesophageal reflux disease. Upper endoscopy was offered for further evaluation and management. PAST MEDICAL HISTORY: Please see list. PAST SURGICAL HISTORY: Please see list. MEDICATIONS: Please see list. ALLERGIES: Please see list. SOCIAL HISTORY: No illicit drug use FAMILY HISTORY: No reports of Crohn disease or ulcerative colitis. REVIEW OF ORGAN SYSTEMS: CONSTITUTIONAL: No reports of fevers or chills. GI: Denies any blood in stools or constipation. PHYSICAL EXAM: VITAL SIGNS: Stable GENERAL: Well-developed and pleasant in no acute distress. HEENT: No scleral icterus. Extraocular movements grossly intact. Moist buccal mucosa. NECK: Supple without lymphadenopathy. CHEST: Unlabored respirations. Equal bilateral excursions. CARDIOVASCULAR: Regular rate and rhythm. Distal 2+ pulses. ABDOMEN: Soft, nondistended. MUSCULOSKELETAL: No clubbing, cyanosis, or edema. ASSESSMENT: 1. Gastroesophageal reflux disease PLAN: 1. Recommend proceeding with an upper endoscopy Past Medical History Past Medical History: Asthma, Cancer, COPD, Hyperlipidemia, Hypertension, Seizure Disorder Additional Past Medical History / Comment(s): Last seizure 04/2017, Chronic Pancreatitis. Hx Kidney Stones, Hx Cervical Cancer. HIATAL HERNIA, REOCCURING , hx migraines, hx heart murmer, hx diverticulitis, HX ELEV LIVER ENZYMES. CHRONIC PAIN RUQ ABD; PAIN CLINIC PATIENT History of Any Multi-Drug Resistant Organisms: None Reported Past Surgical History: Appendectomy, Bowel Resection, Cholecystectomy, Hysterectomy, Orthopedic Surgery Additional Past Surgical History / Comment(s): Surgery on RT Salivary Gland. RT ELBOW NERVE SURG, EGD & COLONOSCOPY, JADEN FUNDOPLASTY, Cervical Cancer Surgery 1988, Flex Oophorectomy. EXPLORATORY LAPAROSCOPIES. PAIN CLINIC PROC Past Anesthesia/Blood Transfusion Reactions: Previous Problems w/ Anesthesia, Postoperative Nausea & Vomiting (PONV) Additional Past Anesthesia/Blood Transfusion Reaction / Comment(s): HX TAKES LONG TIME TO AWAKEN Smoking Status: Former smoker - Past Family History Mother Sister(s) Family Medical History: Cancer Additional Family Medical History / Comment(s): COLON CANCER. GRANDFATHER ALSO HAD COLON CANCER Mother Family Medical History: Cancer Additional Family Medical History / Comment(s): COLON CA Father Family Medical History: Hypertension Brother(s) Family Medical History: No Reported History Additional Family Medical History / Comment(s): diverticulitis Sister(s) Family Medical History: Cancer Additional Family Medical History / Comment(s): head and neck cancer, brain aneurysm Daughter(s) Family Medical History: No Reported History Son(s) Family Medical History: No Reported History Medications and Allergies Home Medications Medication Instructions Recorded Confirmed Type Brivaracetam [Briviact] 100 mg PO BID 08/12/16 12/29/17 History Cyanocobalamin [Vitamin B-12] 500 mcg PO DAILY 08/05/17 12/29/17 History Pyridoxine [Vitamin B-6] 50 mg PO DAILY 08/05/17 12/29/17 History Desvenlafaxine Succinate [Pristiq] 25 mg PO HS 08/09/17 12/29/17 History Atorvastatin [Lipitor] 20 mg PO DAILY #30 tab 08/11/17 12/29/17 Rx Budesonide-Formot 160-4.5 Mcg 2 puff INHALATION BID 09/17/17 12/29/17 History [Symbicort 160-4.5 Mcg Inhaler] Metoprolol Tartrate 12.5 mg PO BID 09/17/17 12/29/17 History Montelukast [Singulair] 10 mg PO HS 09/17/17 12/29/17 History Nitroglycerin Sl Tabs [Nitrostat] 0.4 mg SUBLINGUAL Q5M PRN #25 tab 09/24/17 Rx Riboflavin [Vitamin B-2] 200 mg PO DAILY 09/24/17 12/29/17 History Albuterol Inhaler [Ventolin Hfa 1 - 2 puff INHALATION Q6HR PRN 10/22/17 History Inhaler] Lidocaine [Lidocaine 5% Rectal 1 applic TOPICAL QID PRN 10/22/17 12/29/17 History Cream] Ondansetron [Zofran] 4 mg PO DAILY PRN 12/03/17 12/29/17 History Pantoprazole [Protonix] 40 mg PO DAILY 12/03/17 12/29/17 History Omeprazole [PriLOSEC] 20 mg PO 1200 12/29/17 12/29/17 History Ranitidine HCl 150 mg PO BID 12/29/17 12/29/17 History Allergies Allergy/AdvReac Type Severity Reaction Status Date / Time ciprofloxacin [From Cipro] Allergy Rash/Hives Verified 12/29/17 17:15 ciprofloxacin HCl Allergy Rash/Hives Verified 12/29/17 17:15 [From Cipro] clarithromycin [From Biaxin] Allergy Rash/Hives Verified 12/29/17 17:15 dicyclomine [From Bentyl] Allergy Confusion Verified 12/29/17 17:15 hydrocodone bitartrate Allergy Rash/Hives Verified 12/29/17 17:15 [From Vicodin] hydromorphone HCl Allergy Itching Verified 12/29/17 17:15 [From Dilaudid] levofloxacin [From Levaquin] Allergy Rash/Hives Verified 12/29/17 17:15 lorazepam [From Ativan] Allergy seizures Verified 12/29/17 17:15 meloxicam [From Mobic] Allergy Rash/Hives Verified 12/29/17 17:15 oxycodone Allergy Rash/Hives Verified 12/29/17 17:15 Penicillins Allergy Swelling Verified 12/29/17 17:15 IN THROAT promethazine HCl Allergy seizures Verified 12/29/17 17:15 [From Phenergan] propoxyphene napsylate Allergy Rash/Hives Verified 12/29/17 17:15 [From Darvocet-N] tramadol HCl [From Ultram] Allergy seizures Verified 12/29/17 17:15 ipratropium [From Atrovent] AdvReac pain Verified 12/29/17 17:15
[~2018-01-01 10:02] MED LIST changes: +LIDOCAINE 1% 20 ML VIAL (10MG/ML) FOR IV START INTRADERMA PRN; +MIDAZOLAM 2 MG/2 ML VIAL IV PRN
[2018-01-01 10:24] VITALS: RESP 18; TEMP 98.5
[2018-01-01] MEDS ORDERED: PROPOFOL 10 MG/ML 20 ML VIAL IV ONE (10:51)
[2018-01-01] MEDS ORDERED: LIDOCAINE 1% INJ 10MG/ML (20 ML MDV) ONE (10:51)
--- NOTE | 2018-01-01 11:10 | P.PCN ---
Date of Procedure: 01/01/18 Description of Procedure: PREOPERATIVE DIAGNOSIS: Gastroesophageal reflux disease. Previous history of Justin fundoplasty Epigastric abdominal pain POSTOPERATIVE DIAGNOSIS: Gastroesophageal reflux disease. Previous history of Justin fundoplasty Epigastric abdominal pain Diaphragmatic hiatal hernia, recurrent, incarcerated Gastritis, mild OPERATION: Esophagogastroduodenoscopy with biopsies along antrum. SURGEON: Nora Capellan MD ANESTHESIA: MAC. INDICATIONS: The patient is a 62-year-old female who presents with a history of reflux disease. Benefits and risks of the procedure were described. Informed consent was obtained. DESCRIPTION: The patient was brought into the endoscopy suite and laid in the left lateral decubitus position. An Olympus gastroscope was passed along the posterior oropharynx down to the distal esophagus where the squamocolumnar junction was encountered at 35 cm from the incisors. The stomach was entered and no bile reflux was found. Additional findings are listed below. Biopsies with cold forceps were obtained of the antrum. The first through third portion of the duodenum was examined and unremarkable. Retroflexion of the scope confirmed Hill grade 1 lower esophageal valve. The squamocolumnar junction demonstrated LA grade B erosive esophagitis. The stomach was desufflated. The patient tolerated the procedure well. FINDINGS: Squamocolumnar junction 35 cm from the incisors. Diaphragmatic hiatus at 37 cm. Hiatal hernia, 3 cm, fixed, recurrent Hill grade 1 lower esophageal valve. LA grade B erosive esophagitis. No active duodenitis. Chronic gastritis with recent bleed RECOMMENDATIONS: Upper endoscopy as needed. Plan - Discharge Summary New Discharge Prescriptions: No Action Brivaracetam [Briviact] 100 mg PO BID Pyridoxine [Vitamin B-6] 50 mg PO DAILY Cyanocobalamin [Vitamin B-12] 500 mcg PO DAILY Desvenlafaxine Succinate [Pristiq] 25 mg PO HS Atorvastatin [Lipitor] 20 mg PO DAILY #30 tab Budesonide-Formot 160-4.5 Mcg [Symbicort 160-4.5 Mcg Inhaler] 2 puff INHALATION BID Montelukast [Singulair] 10 mg PO HS Metoprolol Tartrate 12.5 mg PO BID Riboflavin [Vitamin B-2] 200 mg PO DAILY Nitroglycerin Sl Tabs [Nitrostat] 0.4 mg SUBLINGUAL Q5M PRN #25 tab PRN Reason: Chest Pain Albuterol Inhaler [Ventolin Hfa Inhaler] 1 - 2 puff INHALATION Q6HR PRN PRN Reason: sob Lidocaine [Lidocaine 5% Rectal Cream] 1 applic TOPICAL QID PRN PRN Reason: Pain Pantoprazole [Protonix] 40 mg PO DAILY Ondansetron [Zofran] 4 mg PO DAILY PRN PRN Reason: Nausea Omeprazole [PriLOSEC] 20 mg PO 1200 Ranitidine HCl 150 mg PO BID Discharge Medication List Brivaracetam [Briviact] 100 mg PO BID 08/12/16 [History] Cyanocobalamin [Vitamin B-12] 500 mcg PO DAILY 08/05/17 [History] Pyridoxine [Vitamin B-6] 50 mg PO DAILY 08/05/17 [History] Desvenlafaxine Succinate [Pristiq] 25 mg PO HS 08/09/17 [History] Atorvastatin [Lipitor] 20 mg PO DAILY #30 tab 08/11/17 [Rx] Budesonide-Formot 160-4.5 Mcg [Symbicort 160-4.5 Mcg Inhaler] 2 puff INHALATION BID 09/17/17 [History] Metoprolol Tartrate 12.5 mg PO BID 09/17/17 [History] Montelukast [Singulair] 10 mg PO HS 09/17/17 [History] Nitroglycerin Sl Tabs [Nitrostat] 0.4 mg SUBLINGUAL Q5M PRN #25 tab 09/24/17 [Rx ] Riboflavin [Vitamin B-2] 200 mg PO DAILY 09/24/17 [History] Albuterol Inhaler [Ventolin Hfa Inhaler] 1 - 2 puff INHALATION Q6HR PRN [History] Lidocaine [Lidocaine 5% Rectal Cream] 1 applic TOPICAL QID PRN 10/22/17 [History ] Ondansetron [Zofran] 4 mg PO DAILY PRN 12/03/17 [History] Pantoprazole [Protonix] 40 mg PO DAILY 12/03/17 [History] Omeprazole [PriLOSEC] 20 mg PO 1200 12/29/17 [History] Ranitidine HCl 150 mg PO BID 12/29/17 [History]
[2018-01-01] MEDS ORDERED: IV FLUID CONTINUATION 1,000 ML IV ONE (11:16)
[2018-01-01 11:35] VITALS: BP 138/82; PULSE 77
== END 2018-01-01 11:54 | disposition home or self-care (01) ==
LOC: ORWHC2ENDO 10:02
PROVIDERS: ATTEND Surgery Plastic and Reconstructive Surgery
DX: K29.51 Unspecified chronic gastritis with bleeding (principal); K21.9 Gastro-esophageal reflux disease without esophagitis; K44.9 Diaphragmatic hernia without obstruction or gangrene; K22.10 Ulcer of esophagus without bleeding; Z79.899 Other long term (current) drug therapy; Z88.0 Allergy status to penicillin; Z88.1 Allergy status to other antibiotic agents; Z88.5 Allergy status to narcotic agent; Z88.3 Allergy status to other anti-infective agents; Z88.8 Allergy status to other drugs, medicaments and biological substances; J44.9 Chronic obstructive pulmonary disease, unspecified; Z85.41 Personal history of malignant neoplasm of cervix uteri; K86.1 Other chronic pancreatitis; K57.92 Diverticulitis of intestine, part unspecified, without perforation or abscess without bleeding
CPT/HCPCS: 88305; 43239; J2001; J2704

== ENCOUNTER 2018-01-03 15:31 | Emergency (ER) | payer OTHER ==
[2018-01-03] MEDS ORDERED: IPRATROPIUM-ALBUTEROL 3 ML NEB INHALATION STA (16:01)
[2018-01-03] MEDS ORDERED: methylPREDNISolone SOD SUCCI 125 MG/2 ML VIAL IV STA (16:01)
[2018-01-03] MEDS ORDERED: SODIUM CHLORIDE 0.9% 1,000 ML IV STA ×2 (16:01)
--- NOTE | 2018-01-03 16:04 | ED ---
SOB HPI - General Chief Complaint: Shortness of Breath Stated Complaint: Sob Time Seen by Provider: 01/03/18 15:55 Source: patient, RN notes reviewed, old records reviewed Mode of arrival: wheelchair Limitations: no limitations - History of Present Illness Initial Comments: Patient is a 62 year old female with hisotry of COPD presents with cough, congestion and LUZ for one day. She reports she started with upper respiratory congestion end of last week. She reports it has settled to her lungs. Patient reports she uses her inhaler more frequently, and has nebulizer at home. She reports cough is productive. She reports her muscles hurt when coughing. She denies chest pain when not coughing or at rest. - Related Data Home Medications Medication Instructions Recorded Confirmed Brivaracetam [Briviact] 100 mg PO BID 08/12/16 01/01/18 Cyanocobalamin [Vitamin B-12] 500 mcg PO DAILY 08/05/17 01/01/18 Pyridoxine [Vitamin B-6] 50 mg PO DAILY 08/05/17 01/01/18 Desvenlafaxine Succinate [Pristiq] 25 mg PO HS 08/09/17 01/01/18 Budesonide-Formot 160-4.5 Mcg 2 puff INHALATION BID 09/17/17 01/01/18 [Symbicort 160-4.5 Mcg Inhaler] Metoprolol Tartrate 12.5 mg PO BID 09/17/17 01/01/18 Montelukast [Singulair] 10 mg PO HS 09/17/17 01/01/18 Riboflavin [Vitamin B-2] 200 mg PO DAILY 09/24/17 01/01/18 Albuterol Inhaler [Ventolin Hfa 1 - 2 puff INHALATION Q6HR PRN 10/22/17 01/01/18 Inhaler] Lidocaine [Lidocaine 5% Rectal 1 applic TOPICAL QID PRN 10/22/17 01/01/18 Cream] Ondansetron [Zofran] 4 mg PO DAILY PRN 12/03/17 01/01/18 Pantoprazole [Protonix] 40 mg PO DAILY 12/03/17 01/01/18 Omeprazole [PriLOSEC] 20 mg PO 1200 12/29/17 01/01/18 Ranitidine HCl 150 mg PO BID 12/29/17 01/01/18 Previous Rx's Medication Instructions Recorded Atorvastatin [Lipitor] 20 mg PO DAILY #30 tab 08/11/17 Nitroglycerin Sl Tabs [Nitrostat] 0.4 mg SUBLINGUAL Q5M PRN #25 tab 09/24/17 Doxycycline [Vibramycin] 100 mg PO Q12HR 7 Days 01/03/18 Ipratropium-Albuterol Nebulize 3 ml INHALATION Q4H #20 neb 01/03/18 [Duoneb 0.5 mg-3 mg/3 ml Soln] predniSONE 50 mg PO DAILY #5 tablet 01/03/18 Allergies Allergy/AdvReac Type Severity Reaction Status Date / Time ciprofloxacin [From Cipro] Allergy Rash/Hives Verified 01/03/18 15:37 ciprofloxacin HCl Allergy Rash/Hives Verified 01/03/18 15:37 [From Cipro] clarithromycin [From Biaxin] Allergy Rash/Hives Verified 01/03/18 15:37 dicyclomine [From Bentyl] Allergy Confusion Verified 01/03/18 15:37 hydrocodone bitartrate Allergy Rash/Hives Verified 01/03/18 15:37 [From Vicodin] hydromorphone HCl Allergy Itching Verified 01/03/18 15:37 [From Dilaudid] levofloxacin [From Levaquin] Allergy Rash/Hives Verified 01/03/18 15:37 lorazepam [From Ativan] Allergy seizures Verified 01/03/18 15:37 meloxicam [From Mobic] Allergy Rash/Hives Verified 01/03/18 15:37 oxycodone Allergy Rash/Hives Verified 01/03/18 15:37 Penicillins Allergy Swelling Verified 01/03/18 15:37 IN THROAT promethazine HCl Allergy seizures Verified 01/03/18 15:37 [From Phenergan] propoxyphene napsylate Allergy Rash/Hives Verified 01/03/18 15:37 [From Darvocet-N] tramadol HCl [From Ultram] Allergy seizures Verified 01/03/18 15:37 ipratropium [From Atrovent] AdvReac pain Verified 01/03/18 15:37 Review of Systems ROS Statement: Those systems with pertinent positive or pertinent negative responses have been documented in the HPI. ROS Other: All systems not noted in ROS Statement are negative. Past Medical History Past Medical History: Asthma, Cancer, COPD, Hyperlipidemia, Hypertension, Seizure Disorder Additional Past Medical History / Comment(s): Last seizure 04/2017, Chronic Pancreatitis. Hx Kidney Stones, Hx Cervical Cancer. HIATAL HERNIA, REOCCURING , hx migraines, hx heart murmer, hx diverticulitis, HX ELEV LIVER ENZYMES. CHRONIC PAIN RUQ ABD; PAIN CLINIC PATIENT History of Any Multi-Drug Resistant Organisms: None Reported Past Surgical History: Appendectomy, Bowel Resection, Cholecystectomy, Hysterectomy, Orthopedic Surgery Additional Past Surgical History / Comment(s): Surgery on RT Salivary Gland. RT ELBOW NERVE SURG, EGD & COLONOSCOPY, JADEN FUNDOPLASTY, Cervical Cancer Surgery 1988, Flex Oophorectomy. EXPLORATORY LAPAROSCOPIES. PAIN CLINIC PROC Past Anesthesia/Blood Transfusion Reactions: Previous Problems w/ Anesthesia, Postoperative Nausea & Vomiting (PONV) Additional Past Anesthesia/Blood Transfusion Reaction / Comment(s): HX TAKES LONG TIME TO AWAKEN Past Psychological History: Anxiety, Panic Disorder Smoking Status: Former smoker Past Alcohol Use History: None Reported Past Drug Use History: None Reported - Past Family History Mother Sister(s) Family Medical History: Cancer Additional Family Medical History / Comment(s): COLON CANCER. GRANDFATHER ALSO HAD COLON CANCER Mother Family Medical History: Cancer Additional Family Medical History / Comment(s): COLON CA Father Family Medical History: Hypertension Brother(s) Family Medical History: No Reported History Additional Family Medical History / Comment(s): diverticulitis Sister(s) Family Medical History: Cancer Additional Family Medical History / Comment(s): head and neck cancer, brain aneurysm Daughter(s) Family Medical History: No Reported History Son(s) Family Medical History: No Reported History General Exam - General Exam Comments Initial Comments: This is a 62 year old female, no significant distress. Limitations: no limitations General appearance: alert, in no apparent distress Head exam: Present: atraumatic, normocephalic, normal inspection Eye exam: Present: normal appearance, PERRL, EOMI. Absent: scleral icterus, conjunctival injection, periorbital swelling ENT exam: Present: normal exam, mucous membranes moist Neck exam: Present: normal inspection. Absent: tenderness, meningismus, lymphadenopathy Respiratory exam: Present: wheezes (bilateral wheezing). Absent: normal lung sounds bilaterally, respiratory distress, rales, rhonchi, stridor Cardiovascular Exam: Present: regular rate, normal rhythm, normal heart sounds. Absent: systolic murmur, diastolic murmur, rubs, gallop, clicks GI/Abdominal exam: Present: soft, normal bowel sounds. Absent: distended, tenderness, guarding, rebound, rigid Extremities exam: Present: normal inspection, full ROM, normal capillary refill. Absent: tenderness, pedal edema, joint swelling, calf tenderness Back exam: Present: normal inspection Neurological exam: Present: alert, oriented X3, CN II-XII intact Psychiatric exam: Present: normal affect, normal mood Skin exam: Present: warm, dry, intact, normal color. Absent: rash Course Vital Signs 01/03/18 01/03/18 01/03/18 15:32 16:13 16:30 Temperature 98.3 F Pulse Rate 74 74 78 Respiratory 24 18 18 Rate Blood Pressure 148/84 O2 Sat by Pulse 98 Oximetry 01/03/18 01/03/18 18:14 18:35 Temperature 98.2 F Pulse Rate 97 97 Respiratory 20 18 Rate Blood Pressure 176/74 142/76 O2 Sat by Pulse 98 96 Oximetry Medical Decision Making - Medical Decision Making This is a 62 year old female with cough, SOB for one day. She has upper respiratory congesiton for the week prior to today. She has diffuse wheezing on initial exam. Given double duoneb treatment with significant improvement. Vitals stable, and Oxygen is 99 to 98% on room air. CXR is unremarkable for pneumonia. She does continue to have productive cough. Given IV steriods, fluids. Labs were unremarkable. At this time, will treat the patient for COPD exacerbtaion with steriods, and doxycycline for productive cough. She has multiple antibiotic allergies. At this time, discussed close follow up with PCP and pulmonology. Discussed strict return parameters. Patient agrees to treatment plan and will comply. - Lab Data Result diagrams: 01/03/18 16:26 01/03/18 16: Lab Results 01/03/18 01/03/18 01/03/18 Range/Units 16:26 16:26 16:26 WBC 10.7 H (3.8-10.6) k/uL RBC 4.37 (3.80-5.40) m/uL Hgb 14.7 (11.4-16.0) gm/dL Hct 42.4 (34.0-46.0) % MCV 97.1 (80.0-100.0) fL MCH 33.6 (25.0-35.0) pg MCHC 34.6 (31.0-37.0) g/dL RDW 12.5 (11.5-15.5) % Plt Count 247 (150-450) k/uL Neutrophils % 64 % Lymphocytes % 25 % Monocytes % 7 % Eosinophils % 1 % Basophils % 1 % Neutrophils # 6.9 (1.3-7.7) k/uL Lymphocytes # 2.7 (1.0-4.8) k/uL Monocytes # 0.7 (0-1.0) k/uL Eosinophils # 0.1 (0-0.7) k/uL Basophils # 0.1 (0-0.2) k/uL PT (9.0-12.0) sec INR (<1.2) APTT (22.0-30.0) sec Sodium 142 (137-145) mmol/L Potassium 4.3 (3.5-5.1) mmol/L Chloride 110 H (98-107) mmol/L Carbon Dioxide 24 (22-30) mmol/L Anion Gap 8 mmol/L BUN 11 (7-17) mg/dL Creatinine 0.60 (0.52-1.04) mg/dL Est GFR (CKD-EPI)AfAm >90 (>60 ml/min/1.73 sqM) Est GFR (CKD-EPI)NonAf >90 (>60 ml/min/1.73 sqM) Glucose 79 (74-99) mg/dL Calcium 9.4 (8.4-10.2) mg/dL Magnesium 2.2 (1.6-2.3) mg/dL Total Bilirubin 0.5 (0.2-1.3) mg/dL AST 38 H (14-36) U/L ALT 43 (9-52) U/L Alkaline Phosphatase 75 (38-126) U/L Total Creatine Kinase 62 (30-135) U/L CK-MB (CK-2) 0.9 (0.0-2.4) ng/mL CK-MB (CK-2) Rel Index 1.5 Troponin I <0.012 (0.000-0.034) ng/mL NT-Pro-B Natriuret Pep pg/mL Total Protein 6.1 L (6.3-8.2) g/dL Albumin 4.1 (3.5-5.0) g/dL 01/03/18 01/03/18 Range/Units 16:26 16:26 WBC (3.8-10.6) k/uL RBC (3.80-5.40) m/uL Hgb (11.4-16.0) gm/dL Hct (34.0-46.0) % MCV (80.0-100.0) fL MCH (25.0-35.0) pg MCHC (31.0-37.0) g/dL RDW (11.5-15.5) % Plt Count (150-450) k/uL Neutrophils % % Lymphocytes % % Monocytes % % Eosinophils % % Basophils % % Neutrophils # (1.3-7.7) k/uL Lymphocytes # (1.0-4.8) k/uL Monocytes # (0-1.0) k/uL Eosinophils # (0-0.7) k/uL Basophils # (0-0.2) k/uL PT 9.6 (9.0-12.0) sec INR 1.0 (<1.2) APTT 20.8 L (22.0-30.0) sec Sodium (137-145) mmol/L Potassium (3.5-5.1) mmol/L Chloride (98-107) mmol/L Carbon Dioxide (22-30) mmol/L Anion Gap mmol/L BUN (7-17) mg/dL Creatinine (0.52-1.04) mg/dL Est GFR (CKD-EPI)AfAm (>60 ml/min/1.73 sqM) Est GFR (CKD-EPI)NonAf (>60 ml/min/1.73 sqM) Glucose (74-99) mg/dL Calcium (8.4-10.2) mg/dL Magnesium (1.6-2.3) mg/dL Total Bilirubin (0.2-1.3) mg/dL AST (14-36) U/L ALT (9-52) U/L Alkaline Phosphatase (38-126) U/L Total Creatine Kinase (30-135) U/L CK-MB (CK-2) (0.0-2.4) ng/mL CK-MB (CK-2) Rel Index Troponin I (0.000-0.034) ng/mL NT-Pro-B Natriuret Pep 250 pg/mL Total Protein (6.3-8.2) g/dL Albumin (3.5-5.0) g/dL Normal sinus rhythm. Possible inferior infarct age-indeterminate. Atenolol EKG noted. Ventricular rate of 87 bpm. NJ was 152. QRS duration 82. QT QTc is 360/442. 01/04/18 16:16 - Radiology Data Radiology results: report reviewed Normal sinus rhythm. Possible inferior infarct age-indeterminate. Atenolol EKG noted. Ventricular rate of 87 bpm. NJ was 152. QRS duration 82. QT QTc is 360/442. CXR is negative for acute disease. Disposition Clinical Impression: Acute exacerbation of chronic obstructive airways disease Disposition: HOME SELF-CARE Condition: Good Instructions: Acute Bronchitis (ED) Additional Instructions: Patient has a follow-up with gate supervisor and PCP the morning. Return to emergency department if any alarming signs or symptoms occur. Prescriptions: Doxycycline [Vibramycin] 100 mg PO Q12HR 7 Days Ipratropium-Albuterol Nebulize [Duoneb 0.5 mg-3 mg/3 ml Soln] 3 ml INHALATION Q4H #20 neb predniSONE 50 mg PO DAILY #5 tablet Is patient prescribed a controlled substance at d/c from ED?: No Referrals: Alex Gomez DO [Primary Care Provider] - 1-2 days Time of Disposition: 18:18
[2018-01-03 16:52] LABS: ALT 43 U/L (9-52); AST 38 U/L (14-36); Albumin 4.1 g/dL (3.5-5.0); Alkaline Phosphatase 75 U/L (38-126); Anion Gap 8 mmol/L; Blood Urea Nitrogen 11 mg/dL (7-17); Calcium 9.4 mg/dL (8.4-10.2); Carbon Dioxide 24 mmol/L (22-30); Chloride 110 mmol/L (98-107); Glucose 79 mg/dL (74-99); Magnesium 2.2 mg/dL (1.6-2.3); Potassium 4.3 mmol/L (3.5-5.1); Sodium 142 mmol/L (137-145); Total Bilirubin 0.5 mg/dL (0.2-1.3); Total Protein 6.1 g/dL (6.3-8.2)
[2018-01-03 16:54] LABS: Creatine Kinase 62 U/L (30-135)
[2018-01-03 16:56] LABS: Prothrombin Time 9.6 sec (9.0-12.0)
--- NOTE | 2018-01-03 16:59 | XR ---
EXAMINATION TYPE: XR chest 2V DATE OF EXAM: 01/03/2018 COMPARISON: Chest radiograph 09/24/2017 HISTORY: Dyspnea and chest pain TECHNIQUE: Frontal and lateral views of the chest are obtained. FINDINGS: There is no focal air space opacity, pleural effusion, or pneumothorax seen. The cardiac silhouette size is within normal limits. The osseous structures are intact. IMPRESSION: No acute cardiopulmonary process. No significant interval change.
[2018-01-03 17:04] LABS: Partial Thromboplastin Time 20.8 sec (22.0-30.0)
[2018-01-03 17:08] LABS: Creatine Kinase MB 0.9 ng/mL (0.0-2.4); Troponin I <0.012 ng/mL (0.000-0.034)
[2018-01-03 17:12] LABS: Basophils # (A) 0.1 k/uL (0-0.2); Basophils % (A) 1 %; Eosinophils # (A) 0.1 k/uL (0-0.7); Eosinophils % (A) 1 %; HCT 42.4 % (34.0-46.0); HGB 14.7 gm/dL (11.4-16.0); Lymphocytes # (A) 2.7 k/uL (1.0-4.8); Lymphocytes % (A) 25 %; MCH 33.6 pg (25.0-35.0); MCHC 34.6 g/dL (31.0-37.0); MCV 97.1 fL (80.0-100.0); Monocytes # (A) 0.7 k/uL (0-1.0); Monocytes % (A) 7 %; Neutrophils # (A) 6.9 k/uL (1.3-7.7); Neutrophils % (A) 64 %; Platelet Count 247 k/uL (150-450); RBC 4.37 m/uL (3.80-5.40); RDW 12.5 % (11.5-15.5); WBC 10.7 k/uL (3.8-10.6)
[2018-01-03 18:15] VITALS: PULSE 97
[2018-01-03 18:43] VITALS: BP 142/76; RESP 18; TEMP 98.2
== END 2018-01-03 18:35 | disposition home or self-care (01) ==
LOC: EC 15:31
DX: J44.1 Chronic obstructive pulmonary disease with (acute) exacerbation (principal); I10 Essential (primary) hypertension; G40.909 Epilepsy, unspecified, not intractable, without status epilepticus; Z87.891 Personal history of nicotine dependence; Z79.51 Long term (current) use of inhaled steroids; Z79.899 Other long term (current) drug therapy; Z88.0 Allergy status to penicillin; Z88.1 Allergy status to other antibiotic agents; Z88.5 Allergy status to narcotic agent; Z88.6 Allergy status to analgesic agent; Z88.8 Allergy status to other drugs, medicaments and biological substances; Z87.39 Personal history of other diseases of the musculoskeletal system and connective tissue; Z85.41 Personal history of malignant neoplasm of cervix uteri; Z90.710 Acquired absence of both cervix and uterus
CPT/HCPCS: 36415; 94640; 83880; 80053; 82550; 82553; 83735; 84484; 85025; 85610; 85730; 71046; 99285; 96374; 96361 ×2; J2930

== ENCOUNTER 2018-01-04 16:36 | Observation (INO) | payer OTHER ==
[2018-01-04] MEDS ORDERED: MAGNESIUM SULFATE-D5W PMX 1 GM in DEXTROSE/WATER 1 100ML.BAG IVPB STA (17:12)
[2018-01-04] MEDS ORDERED: methylPREDNISolone SOD SUCCI 125 MG/2 ML VIAL IV STA (17:12)
[2018-01-04] MEDS ORDERED: SODIUM CHLORIDE 0.9% 1,000 ML IV STA (17:12)
[2018-01-04] MEDS ORDERED: IPRATROPIUM-ALBUTEROL 3 ML NEB INHALATION STA (17:13)
[2018-01-04 18:23] LABS: Basophils % (A) 0 %; Eosinophils # (A) 0.3 k/uL (0-0.7); Eosinophils % (A) 1 %; HCT 41.3 % (34.0-46.0); HGB 13.5 gm/dL (11.4-16.0); Lymphocytes # (A) 1.1 k/uL (1.0-4.8); Lymphocytes % (A) 5 %; MCH 32.7 pg (25.0-35.0); MCHC 32.6 g/dL (31.0-37.0); MCV 100.1 fL (80.0-100.0); Mean Platelet Volume 6.9; Monocytes # (A) 0.6 k/uL (0-1.0); Monocytes % (A) 3 %; Neutrophils # (A) 18.4 k/uL (1.3-7.7); Neutrophils % (A) 90 %; Platelet Count 266 k/uL (150-450); RBC 4.13 m/uL (3.80-5.40); RDW 12.9 % (11.5-15.5); WBC 20.6 k/uL (3.8-10.6)
--- NOTE | 2018-01-04 18:32 | XR ---
EXAMINATION TYPE: XR chest 2V DATE OF EXAM: 01/04/2018 COMPARISON: Yesterday HISTORY: COPD. Difficulty breathing TECHNIQUE: Frontal and lateral views of the chest are obtained. FINDINGS: Heart and mediastinum are normal. Lungs are clear. There is no pleural effusion. There are chest leads. Bony thorax appears intact. IMPRESSION: No active cardiopulmonary disease. No change. No evidence of any significant COPD.
[2018-01-04 18:33] LABS: ALT 43 U/L (9-52); AST 30 U/L (14-36); Albumin 4.3 g/dL (3.5-5.0); Alkaline Phosphatase 76 U/L (38-126); Anion Gap 9 mmol/L; Blood Urea Nitrogen 13 mg/dL (7-17); Calcium 9.6 mg/dL (8.4-10.2); Carbon Dioxide 23 mmol/L (22-30); Chloride 109 mmol/L (98-107); Glucose 129 mg/dL (74-99); Sodium 141 mmol/L (137-145); Total Bilirubin 0.2 mg/dL (0.2-1.3); Total Protein 6.3 g/dL (6.3-8.2)
[2018-01-04 18:38] LABS: Creatine Kinase 69 U/L (30-135)
[2018-01-04 18:51] LABS: Creatine Kinase MB 1.7 ng/mL (0.0-2.4); Troponin I <0.012 ng/mL (0.000-0.034)
[2018-01-04] MEDS ORDERED: ACETAMINOPHEN TAB 325 MG TAB PO STA (18:55)
[2018-01-04 19:20] LABS: Prothrombin Time 9.5 sec (9.0-12.0)
[2018-01-04 19:24] LABS: D-Dimer <0.17 mg/L FEU (<0.60); Partial Thromboplastin Time 19.2 sec (22.0-30.0)
--- NOTE | 2018-01-04 22:50 | ED ---
General Adult HPI - General Chief complaint: Shortness of Breath Stated complaint: Diff breathing Time Seen by Provider: 01/04/18 16:49 Source: patient Mode of arrival: wheelchair Limitations: no limitations - History of Present Illness Initial comments: Nora Colindres is a 62-year-old female with history of COPD who presents to the emergency department today for evaluation of progressively worsening shortness of breath. Patient was seen in the emergency department yesterday she received steroids and a breathing treatment with improvement in her symptoms and discharged home. Patient reports that sometimes the weather can exacerbate her COPD so she went to an early lunch to avoid being in the heat. Patient reports that after returning home she had progressively worsening shortness of breath, around 2:30 she took a breathing treatment with minimal improvement. The rest the evening the patient could feel herself wheezing and by nighttime decided to come to the ER for further evaluation. Patient reports that she feels tightness and wheezing when she tries to take a deep breath, she denies any exertional chest pain, lightheadedness or diaphoresis. She does feel some palpitations but has had this in the past when having breathing difficulty. She denies any previous history of DVT or PE. Patient denies any fevers, chills, nausea, vomiting or change in bowel or bladder habits. She was prescribed by mouth prednisone upon discharge yesterday she states she has taken one dose of this. - Related Data Home Medications Medication Instructions Recorded Confirmed Brivaracetam [Briviact] 100 mg PO BID 08/12/16 01/04/18 Cyanocobalamin [Vitamin B-12] 500 mcg PO DAILY 08/05/17 01/04/18 Pyridoxine [Vitamin B-6] 50 mg PO DAILY 08/05/17 01/04/18 Desvenlafaxine Succinate [Pristiq] 25 mg PO HS 08/09/17 01/04/18 Budesonide-Formot 160-4.5 Mcg 2 puff INHALATION BID 09/17/17 01/04/18 [Symbicort 160-4.5 Mcg Inhaler] Metoprolol Tartrate 12.5 mg PO BID 09/17/17 01/04/18 Montelukast [Singulair] 10 mg PO HS 09/17/17 01/04/18 Riboflavin [Vitamin B-2] 200 mg PO DAILY 09/24/17 01/04/18 Albuterol Inhaler [Ventolin Hfa 1 - 2 puff INHALATION Q6HR PRN 10/22/17 01/04/18 Inhaler] Lidocaine [Lidocaine 5% Rectal 1 applic TOPICAL QID PRN 10/22/17 01/04/18 Cream] Ondansetron [Zofran] 4 mg PO DAILY PRN 12/03/17 01/04/18 Pantoprazole [Protonix] 40 mg PO DAILY 12/03/17 01/04/18 Omeprazole [PriLOSEC] 20 mg PO 1200 12/29/17 01/04/18 Ranitidine HCl 150 mg PO BID 12/29/17 01/04/18 Ipratropium-Albuterol Nebulize 3 ml INHALATION RT-Q4H 01/04/18 01/04/18 [Duoneb 0.5 mg-3 mg/3 ml Soln] Previous Rx's Medication Instructions Recorded Atorvastatin [Lipitor] 20 mg PO DAILY #30 tab 08/11/17 Nitroglycerin Sl Tabs [Nitrostat] 0.4 mg SUBLINGUAL Q5M PRN #25 tab 09/24/17 Doxycycline [Vibramycin] 100 mg PO Q12HR 7 Days 01/03/18 predniSONE 50 mg PO DAILY #5 tablet 01/03/18 Allergies Allergy/AdvReac Type Severity Reaction Status Date / Time ciprofloxacin [From Cipro] Allergy Rash/Hives Verified 01/04/18 17:52 ciprofloxacin HCl Allergy Rash/Hives Verified 01/04/18 17:52 [From Cipro] clarithromycin [From Biaxin] Allergy Rash/Hives Verified 01/04/18 17:52 dicyclomine [From Bentyl] Allergy Confusion Verified 01/04/18 17:52 hydrocodone bitartrate Allergy Rash/Hives Verified 01/04/18 17:52 [From Vicodin] hydromorphone HCl Allergy Itching Verified 01/04/18 17:52 [From Dilaudid] levofloxacin [From Levaquin] Allergy Rash/Hives Verified 01/04/18 17:52 lorazepam [From Ativan] Allergy seizures Verified 01/04/18 17:52 meloxicam [From Mobic] Allergy Rash/Hives Verified 01/04/18 17:52 oxycodone Allergy Rash/Hives Verified 01/04/18 17:52 Penicillins Allergy Swelling Verified 01/04/18 17:52 IN THROAT promethazine HCl Allergy seizures Verified 01/04/18 17:52 [From Phenergan] propoxyphene napsylate Allergy Rash/Hives Verified 01/04/18 17:52 [From Darvocet-N] tramadol HCl [From Ultram] Allergy seizures Verified 01/04/18 17:52 ipratropium [From Atrovent] AdvReac pain Verified 01/04/18 17:52 Review of Systems ROS Statement: Those systems with pertinent positive or pertinent negative responses have been documented in the HPI. ROS Other: All systems not noted in ROS Statement are negative. Past Medical History Past Medical History: Asthma, Cancer, COPD, Hyperlipidemia, Hypertension, Seizure Disorder Additional Past Medical History / Comment(s): Last seizure 04/2017, Chronic Pancreatitis. Hx Kidney Stones, Hx Cervical Cancer. HIATAL HERNIA, REOCCURING , hx migraines, hx heart murmer, hx diverticulitis, HX ELEV LIVER ENZYMES. CHRONIC PAIN RUQ ABD; PAIN CLINIC PATIENT History of Any Multi-Drug Resistant Organisms: None Reported Past Surgical History: Appendectomy, Bowel Resection, Cholecystectomy, Hysterectomy, Orthopedic Surgery Additional Past Surgical History / Comment(s): Surgery on RT Salivary Gland. RT ELBOW NERVE SURG, EGD & COLONOSCOPY, JADEN FUNDOPLASTY, Cervical Cancer Surgery 1988, Flex Oophorectomy. EXPLORATORY LAPAROSCOPIES. PAIN CLINIC PROC Past Anesthesia/Blood Transfusion Reactions: Previous Problems w/ Anesthesia, Postoperative Nausea & Vomiting (PONV) Additional Past Anesthesia/Blood Transfusion Reaction / Comment(s): HX TAKES LONG TIME TO AWAKEN Past Psychological History: Anxiety, Panic Disorder Smoking Status: Former smoker Past Alcohol Use History: None Reported Past Drug Use History: None Reported - Past Family History Mother Sister(s) Family Medical History: Cancer Additional Family Medical History / Comment(s): COLON CANCER. GRANDFATHER ALSO HAD COLON CANCER Mother Family Medical History: Cancer Additional Family Medical History / Comment(s): COLON CA Father Family Medical History: Hypertension Brother(s) Family Medical History: No Reported History Additional Family Medical History / Comment(s): diverticulitis Sister(s) Family Medical History: Cancer Additional Family Medical History / Comment(s): head and neck cancer, brain aneurysm Daughter(s) Family Medical History: No Reported History Son(s) Family Medical History: No Reported History General Exam - General Exam Comments Initial Comments: GENERAL: Patient is well-developed and well-nourished. Patient is nontoxic and well- hydrated and is in mild distress. HENT: Normocephalic, Atraumatic. Neck is soft and supple. No significant lymphadenopathy is noted. Oropharynx is clear. Moist mucous membranes. Neck has full range of motion without eliciting any pain. EYES: The sclera were anicteric and conjunctiva were pink and moist. Extraocular movements were intact and pupils were equal round and reactive to light. Eyelids were unremarkable. PULMONARY: Tachypnea, increased work of breathing, wheezes in all lung chavarria CARDIOVASCULAR: Tachycardic, regular ABDOMEN: Soft and nontender with normal bowel sounds. SKIN: Skin is clear with no lesions or rashes and otherwise unremarkable. NEUROLOGIC: Patient is alert and oriented x3. Cranial nerves II through XII are grossly intact. Motor and sensory are also intact. Normal speech, volume and content. Symmetrical smile. MUSCULOSKELETAL: Normal extremities with adequate strength and full range of motion. No lower extremity swelling or edema. No calf tenderness. LYMPHATICS: No significant lymphadenopathy is noted PSYCHIATRIC: Normal psychiatric evaluation. Limitations: no limitations Limitations: no limitations Course Vital Signs 01/04/18 01/04/18 01/04/18 16:41 17:25 17:31 Temperature 98.6 F Pulse Rate 130 H 111 H 113 H Respiratory 24 20 18 Rate Blood Pressure 162/85 O2 Sat by Pulse 98 Oximetry 01/04/18 01/04/18 18:57 22:29 Temperature Pulse Rate 112 H 105 H Respiratory 17 18 Rate Blood Pressure 134/74 149/86 O2 Sat by Pulse 96 95 Oximetry EKG Findings - EKG Comments: EKG Findings:: EKG obtained at 1656, rate is 1:15, rhythm is sinus tachycardia, normal axis, normal intervals, NH 148, QRS 88, QTC 464, noted to have Q waves in the inferior leads, no acute ST elevations or depressions no evidence of acute ischemia or infarction. Medical Decision Making - Medical Decision Making Patient was seen and evaluated, history was obtained from the patient She with a history of COPD now having worsening wheezing and shortness of breath , was evaluated yesterday received IV steroids, breathing treatment was discharged home on oral steroids Despite being compliant with medication she has progressively worsening wheezing Labs EKG and chest x-ray were ordered Chest x-ray with changes consistent with COPD, EKG with sinus tachycardia no acute findings noted Labs reveal significant leukocytosis, this is likely reactive and secondary to recent steroid use Patient with mild improvement after repeat steroids and DuoNeb's, at this time I feel the patient warrants admission to the hospital for [id number] steroids and DuoNeb's patient is agreeable with this that she is very anxious that if she is discharged home she will have recurrent exacerbation. Patient was admitted with a consult pulmonology. - Lab Data Result diagrams: 01/04/18 18:05 01/04/18 18:05 Lab Results 01/04/18 01/04/18 01/04/18 Range/Units 18:05 18:05 18:05 WBC 20.6 H (3.8-10.6) k/uL RBC 4.13 (3.80-5.40) m/uL Hgb 13.5 (11.4-16.0) gm/dL Hct 41.3 (34.0-46.0) % MCV 100.1 H (80.0-100.0) fL MCH 32.7 (25.0-35.0) pg MCHC 32.6 (31.0-37.0) g/dL RDW 12.9 (11.5-15.5) % Plt Count 266 (150-450) k/uL Neutrophils % 90 % Lymphocytes % 5 % Monocytes % 3 % Eosinophils % 1 % Basophils % 0 % Neutrophils # 18.4 H (1.3-7.7) k/uL Lymphocytes # 1.1 (1.0-4.8) k/uL Monocytes # 0.6 (0-1.0) k/uL Eosinophils # 0.3 (0-0.7) k/uL Basophils # 0.0 (0-0.2) k/uL PT (9.0-12.0) sec INR (<1.2) APTT (22.0-30.0) sec D-Dimer (<0.60) mg/L FEU Sodium 141 (137-145) mmol/L Potassium 4.0 (3.5-5.1) mmol/L Chloride 109 H (98-107) mmol/L Carbon Dioxide 23 (22-30) mmol/L Anion Gap 9 mmol/L BUN 13 (7-17) mg/dL Creatinine 0.60 (0.52-1.04) mg/dL Est GFR (CKD-EPI)AfAm >90 (>60 ml/min/1.73 sqM) Est GFR (CKD-EPI)NonAf >90 (>60 ml/min/1.73 sqM) Glucose 129 H (74-99) mg/dL Calcium 9.6 (8.4-10.2) mg/dL Total Bilirubin 0.2 (0.2-1.3) mg/dL AST 30 (14-36) U/L ALT 43 (9-52) U/L Alkaline Phosphatase 76 (38-126) U/L Total Creatine Kinase 69 (30-135) U/L CK-MB (CK-2) 1.7 (0.0-2.4) ng/mL CK-MB (CK-2) Rel Index 2.5 Troponin I <0.012 (0.000-0.034) ng/mL NT-Pro-B Natriuret Pep pg/mL Total Protein 6.3 (6.3-8.2) g/dL Albumin 4.3 (3.5-5.0) g/dL 01/04/18 01/04/18 Range/Units 18:05 18:44 WBC (3.8-10.6) k/uL RBC (3.80-5.40) m/uL Hgb (11.4-16.0) gm/dL Hct (34.0-46.0) % MCV (80.0-100.0) fL MCH (25.0-35.0) pg MCHC (31.0-37.0) g/dL RDW (11.5-15.5) % Plt Count (150-450) k/uL Neutrophils % % Lymphocytes % % Monocytes % % Eosinophils % % Basophils % % Neutrophils # (1.3-7.7) k/uL Lymphocytes # (1.0-4.8) k/uL Monocytes # (0-1.0) k/uL Eosinophils # (0-0.7) k/uL Basophils # (0-0.2) k/uL PT 9.5 (9.0-12.0) sec INR 1.0 (<1.2) APTT 19.2 L (22.0-30.0) sec D-Dimer <0.17 (<0.60) mg/L FEU Sodium (137-145) mmol/L Potassium (3.5-5.1) mmol/L Chloride (98-107) mmol/L Carbon Dioxide (22-30) mmol/L Anion Gap mmol/L BUN (7-17) mg/dL Creatinine (0.52-1.04) mg/dL Est GFR (CKD-EPI)AfAm (>60 ml/min/1.73 sqM) Est GFR (CKD-EPI)NonAf (>60 ml/min/1.73 sqM) Glucose (74-99) mg/dL Calcium (8.4-10.2) mg/dL Total Bilirubin (0.2-1.3) mg/dL AST (14-36) U/L ALT (9-52) U/L Alkaline Phosphatase (38-126) U/L Total Creatine Kinase (30-135) U/L CK-MB (CK-2) (0.0-2.4) ng/mL CK-MB (CK-2) Rel Index Troponin I (0.000-0.034) ng/mL NT-Pro-B Natriuret Pep 213 pg/mL Total Protein (6.3-8.2) g/dL Albumin (3.5-5.0) g/dL Disposition Clinical Impression: COPD (chronic obstructive pulmonary disease) Disposition: ADMITTED IP TO THIS [facility] Condition: Stable Referrals: Alex Gomez DO [Primary Care Provider] - 1-2 days
[2018-01-04] MEDS: IPRATROPIUM-ALBUTEROL 3 ML NEB INHALATION PRN (23:50)
[2018-01-05] MEDS: MONTELUKAST 10 MG TAB PO SCH ×2 (00:59→22:15)
[2018-01-05] MEDS: METOPROLOL TARTRATE 12.5 MG TAB PO SCH ×3 (00:59→22:14)
[2018-01-05] MEDS: ZOLPIDEM 5 MG TAB PO PRN (00:59)
[2018-01-05] MEDS: DESVENLAFAXINE SUCCINATE PO SCH ×2 (01:30→22:14)
[2018-01-05] MEDS: BRIVARACETAM PO SCH ×3 (01:30→22:13)
[2018-01-05] MEDS: IPRATROPIUM-ALBUTEROL 3 ML NEB INHALATION PRN ×4 (08:53→19:42)
[2018-01-05] MEDS ORDERED: predniSONE 20 MG TAB PO SCH (09:00)
--- NOTE | 2018-01-05 11:38 | P.CNPUL ---
History of Present Illness Consult date: 01/05/18 Requesting physician: Cecilio Mcconnell Reason for consult: dyspnea Chief complaint: Shortness of breath, chest tightness and wheezing. History of present illness: A pleasant 62-year-old female patient who has a history of chronic obstructive pulmonary disease and follows with Dr. Xiao in our office for the same. Her FEV1 value is 86% of predicted. He does have a 30 year smoking history however quit many years ago. She's been on Symbicort and Singulair and albuterol. She also has a history of hyperlipidemia, hypertension, peritonitis, diverticulitis , seizure disorder, GERD. He presented here to the emergency room on 2017 with complaints of increasing shortness breath cough or congestion. She was treated for an acute bronchitis and discharged home on doxycycline and prednisone 50 mg daily for 5 days. She felt no real improvement and return to the emergency room again yesterday. She felt as though the weather is making it very difficult for her to breathe. She did utilize breathing treatments at home without much improvement. Asked x-ray shows no acute pulmonary process. She was maintaining good O2 saturations in the 90s on room air. She was afebrile. She was tachycardic with slight tachypnea. White count 20.6 on 50 mg of prednisone. She was seen in consultation today on the regular medical floor. She is awake and alert in no acute distress. She is breathing somewhat better today as compared to yesterday. Still not quite back to her baseline. Dyspneic with minimal exertion. She has a dry nonproductive cough. No chills or night sweats. No hemoptysis. Review of Systems 14 point review of system was conducted. All negative other than as mentioned in HPI. Past Medical History Past Medical History: Asthma, Cancer, COPD, Hyperlipidemia, Hypertension, Seizure Disorder Additional Past Medical History / Comment(s): Last seizure 04/2017, chronic pancreatitis, kidney stones, cervical cancer. recurring hiatal hernia, migraines, heart murmur, diverticulitis, hx of LFT, chronic RUQ pain, pain clinic. History of Any Multi-Drug Resistant Organisms: None Reported Past Surgical History: Appendectomy, Bowel Resection, Cholecystectomy, Hysterectomy, Orthopedic Surgery Additional Past Surgical History / Comment(s): Surgery on right salivary gland, right elbow nerve surgery, EGD, colonoscopy, renee fundoplasty, cervical cancer surgery 1988, bilateral oophorectomy. exploratory laparscopies, pain clinic procedures. Past Anesthesia/Blood Transfusion Reactions: Previous Problems w/ Anesthesia, Postoperative Nausea & Vomiting (PONV) Additional Past Anesthesia/Blood Transfusion Reaction / Comment(s): Takes long time to awaken. Past Psychological History: Anxiety, Panic Disorder Smoking Status: Former smoker Past Alcohol Use History: None Reported Additional Past Alcohol Use History / Comment(s): Smoked 20 years, mostly 1 PPD. Quit 1998. Past Drug Use History: None Reported - Past Family History Mother Sister(s) Family Medical History: Cancer Additional Family Medical History / Comment(s): COLON CANCER. GRANDFATHER ALSO HAD COLON CANCER Mother Family Medical History: Cancer Additional Family Medical History / Comment(s): Colon cancer Father Family Medical History: Hypertension Brother(s) Family Medical History: No Reported History Additional Family Medical History / Comment(s): Diverticulitis Sister(s) Family Medical History: Cancer Additional Family Medical History / Comment(s): Head and neck cancer, brain aneurysm Daughter(s) Family Medical History: No Reported History Son(s) Family Medical History: No Reported History Medications and Allergies Home Medications Medication Instructions Recorded Confirmed Type Brivaracetam [Briviact] 100 mg PO BID 08/12/16 01/04/18 History Cyanocobalamin [Vitamin B-12] 500 mcg PO DAILY 08/05/17 01/04/18 History Pyridoxine [Vitamin B-6] 50 mg PO DAILY 08/05/17 01/04/18 History Desvenlafaxine Succinate [Pristiq] 25 mg PO HS 08/09/17 01/04/18 History Atorvastatin [Lipitor] 20 mg PO DAILY #30 tab 08/11/17 01/04/18 Rx Budesonide-Formot 160-4.5 Mcg 2 puff INHALATION BID 09/17/17 01/04/18 History [Symbicort 160-4.5 Mcg Inhaler] Metoprolol Tartrate 12.5 mg PO BID 09/17/17 01/04/18 History Montelukast [Singulair] 10 mg PO HS 09/17/17 01/04/18 History Nitroglycerin Sl Tabs [Nitrostat] 0.4 mg SUBLINGUAL Q5M PRN #25 tab 09/24/17 Rx Riboflavin [Vitamin B-2] 200 mg PO DAILY 09/24/17 01/04/18 History Albuterol Inhaler [Ventolin Hfa 1 - 2 puff INHALATION Q6HR PRN 10/22/17 History Inhaler] Lidocaine [Lidocaine 5% Rectal 1 applic TOPICAL QID PRN 10/22/17 01/04/18 History Cream] Ondansetron [Zofran] 4 mg PO DAILY PRN 12/03/17 01/04/18 History Pantoprazole [Protonix] 40 mg PO DAILY 12/03/17 01/04/18 History Omeprazole [PriLOSEC] 20 mg PO 1200 12/29/17 01/04/18 History Ranitidine HCl 150 mg PO BID 12/29/17 01/04/18 History Doxycycline [Vibramycin] 100 mg PO Q12HR 7 Days 01/03/18 01/04/18 Rx predniSONE 50 mg PO DAILY #5 tablet 01/03/18 01/04/18 Rx Ipratropium-Albuterol Nebulize 3 ml INHALATION RT-Q4H 01/04/18 01/04/18 History [Duoneb 0.5 mg-3 mg/3 ml Soln] Allergies Allergy/AdvReac Type Severity Reaction Status Date / Time ciprofloxacin [From Cipro] Allergy Rash/Hives Verified 01/04/18 17:52 ciprofloxacin HCl Allergy Rash/Hives Verified 01/04/18 17:52 [From Cipro] clarithromycin [From Biaxin] Allergy Rash/Hives Verified 01/04/18 17:52 dicyclomine [From Bentyl] Allergy Confusion Verified 01/04/18 17:52 hydrocodone bitartrate Allergy Rash/Hives Verified 01/04/18 17:52 [From Vicodin] hydromorphone HCl Allergy Itching Verified 01/04/18 17:52 [From Dilaudid] levofloxacin [From Levaquin] Allergy Rash/Hives Verified 01/04/18 17:52 lorazepam [From Ativan] Allergy seizures Verified 01/04/18 17:52 meloxicam [From Mobic] Allergy Rash/Hives Verified 01/04/18 17:52 oxycodone Allergy Rash/Hives Verified 01/04/18 17:52 Penicillins Allergy Swelling Verified 01/04/18 17:52 IN THROAT promethazine HCl Allergy seizures Verified 01/04/18 17:52 [From Phenergan] propoxyphene napsylate Allergy Rash/Hives Verified 01/04/18 17:52 [From Darvocet-N] tramadol HCl [From Ultram] Allergy seizures Verified 01/04/18 17:52 ipratropium [From Atrovent] AdvReac pain Verified 01/04/18 17:52 Physical Exam Vitals: Vital Signs Temp Pulse Pulse Resp BP BP Pulse Ox 01/05/18 09:04 98 01/05/18 08:54 94 20 94 L 01/05/18 05:45 97.2 F L 84 18 131/65 98 01/05/18 01:00 97.1 F L 118 H 22 162/79 94 L 01/05/18 00:01 108 H 01/04/18 23:50 104 H 01/04/18 23:38 98.8 F 103 H 18 144/80 97 01/04/18 22:29 105 H 18 149/86 95 01/04/18 18:57 112 H 17 134/74 96 01/04/18 17:31 113 H 18 01/04/18 17:25 111 H 20 01/04/18 16:41 98.6 F 130 H 24 162/85 98 Intake and Output 01/04/18 01/05/18 01/05/18 22:59 06:59 14:59 Other: Voiding Method Toilet # Voids 1 Weight 64.864 kg 65.9 kg GENERAL EXAM: Alert, active, comfortable in no apparent distress. HEAD: Normocephalic. EYES: Normal reaction of pupils, equal size. NOSE: Clear with pink turbinates. THROAT: No erythema or exudates. NECK: No masses, no JVD. CHEST: No chest wall deformity. LUNGS: Equal air entry with bilateral end expiratory wheeze. Diminished. CVS: S1 and S2 normal with no audible murmur, regular rhythm. ABDOMEN: No hepatosplenomegaly, normal bowel sounds, no guarding or rigidity. SPINE: No scoliosis or deformity SKIN: No rashes CENTRAL NERVOUS SYSTEM: No focal deficits, tone is normal in all 4 extremities. EXTREMITIES: There is no peripheral edema. No clubbing, no cyanosis. Peripheral pulses are intact. Results - Laboratory Findings CBC and BMP: 01/04/18 18:05 01/04/18 18:05 PT/INR, D-dimer PT 9.5 sec (9.0-12.0) 01/04/18 18:44 INR 1.0 (<1.2) 01/04/18 18:44 D-Dimer <0.17 mg/L FEU (<0.60) 01/04/18 18:44 Abnormal lab findings: Abnormal Labs 01/04/18 01/04/18 08 18:05 18:05 18:44 WBC 20.6 H MCV 100.1 H Neutrophils # 18.4 H APTT 19.2 L Chloride 109 H Glucose 129 H - Diagnostic Findings Chest x-ray: image reviewed (No acute process) Assessment and Plan Assessment: Impression: #1 Acute exacerbation of chronic obstructive pulmonary disease. #2 Hyperlipidemia. #3 Hypertension. #4 Seizure disorder. #5 Chronic pancreatitis. #6 Diverticulosis. #7 Remote history of smoking. #8 Anxiety/panic disorder. Plan: The patient was seen and evaluated by Dr. Fairbanks. We'll continue with her COPD exacerbation treatment plan including IV Solu-Medrol, DuoNeb inhalations, Symbicort, Singulair. We will increase her activity as tolerated. We'll continue to follow. I, the cosigning physician, performed a history & physical examination of the patient. Lungs sounds with bilateral end expiratory wheeze. Diminished. Maintaining good O2 saturations in the 90s on room air. I discussed the assessment and plan of care with my nurse practitioner, Astrid Farris. I attest to the above consultation as dictated by her. Time with Patient: Greater than 30
[2018-01-05] MEDS: methylPREDNISolone SOD SUCCI 125 MG/2 ML VIAL IV SCH ×2 (12:53→17:22)
[2018-01-05] MEDS ORDERED: ONDANSETRON 4 MG TAB PO PRN (13:04)
[2018-01-05] MEDS ORDERED: NITROGLYCERIN SL TABS 0.4 MG TAB SUBLINGUAL PRN (13:04)
[2018-01-05] MEDS ORDERED: LIDOCAINE 4% CREAM 5 GM TUBE TOPICAL PRN (13:04)
--- NOTE | 2018-01-05 14:45 | P.HPIM ---
History of Present Illness 62-year-old pleasant female with the remote history of smoking 30 years ago with a fever of 86% came in with comments of shortness of breath cough unable to bring up anything patient was seen in the ER last Thursday improved symptoms after which patient was discharged from ER after she was given breathing treatments and a dose of steroid. Patient started having symptoms today morning again unable to breathe patient came to bacteria ER because of that and patient was subsequently admitted patient is presently on 2 L of 5 and saturating 94%. Patient denied any fever chills or 60 did not send pneumonic process. Review of Systems REVIEW OF SYSTEMS: CONSTITUTIONAL: No fever, no malaise, no fatigue. HEENT: No recent visual problems or hearing problems. Denied any sore throat. CARDIOVASCULAR: No chest pain, orthopnea, PND, no palpitations, no syncope. PULMONARY: As mentioned in HPI GASTROINTESTINAL: No diarrhea, no nausea, no vomiting, no abdominal pain. Normoactive bowel sounds. NEUROLOGICAL: No headaches, no weakness, no numbness. HEMATOLOGICAL: Denies any bleeding or petechiae. GENITOURINARY: Denies any burning micturition, frequency, or urgency. MUSCULOSKELETAL/RHEUMATOLOGICAL: Denies any joint pain, swelling, or any muscle pain. ENDOCRINE: Denies any polyuria or polydipsia. The rest of the 14-point review of systems is negative. Past Medical History Past Medical History: Asthma, Cancer, COPD, Hyperlipidemia, Hypertension, Seizure Disorder Additional Past Medical History / Comment(s): Last seizure 04/2017, chronic pancreatitis, kidney stones, cervical cancer. recurring hiatal hernia, migraines, heart murmur, diverticulitis, hx of LFT, chronic RUQ pain, pain clinic. History of Any Multi-Drug Resistant Organisms: None Reported Past Surgical History: Appendectomy, Bowel Resection, Cholecystectomy, Hysterectomy, Orthopedic Surgery Additional Past Surgical History / Comment(s): Surgery on right salivary gland, right elbow nerve surgery, EGD, colonoscopy, renee fundoplasty, cervical cancer surgery 1988, bilateral oophorectomy. exploratory laparscopies, pain clinic procedures. Past Anesthesia/Blood Transfusion Reactions: Previous Problems w/ Anesthesia, Postoperative Nausea & Vomiting (PONV) Additional Past Anesthesia/Blood Transfusion Reaction / Comment(s): Takes long time to awaken. Past Psychological History: Anxiety, Panic Disorder Smoking Status: Former smoker Past Alcohol Use History: None Reported Additional Past Alcohol Use History / Comment(s): Smoked 20 years, mostly 1 PPD. Quit 1998. Past Drug Use History: None Reported - Past Family History Mother Sister(s) Family Medical History: Cancer Additional Family Medical History / Comment(s): COLON CANCER. GRANDFATHER ALSO HAD COLON CANCER Mother Family Medical History: Cancer Additional Family Medical History / Comment(s): Colon cancer Father Family Medical History: Hypertension Brother(s) Family Medical History: No Reported History Additional Family Medical History / Comment(s): Diverticulitis Sister(s) Family Medical History: Cancer Additional Family Medical History / Comment(s): Head and neck cancer, brain aneurysm Daughter(s) Family Medical History: No Reported History Son(s) Family Medical History: No Reported History Medications and Allergies Home Medications Medication Instructions Recorded Confirmed Type Brivaracetam [Briviact] 100 mg PO BID 08/12/16 01/04/18 History Cyanocobalamin [Vitamin B-12] 500 mcg PO DAILY 08/05/17 01/04/18 History Pyridoxine [Vitamin B-6] 50 mg PO DAILY 08/05/17 01/04/18 History Desvenlafaxine Succinate [Pristiq] 25 mg PO HS 08/09/17 01/04/18 History Atorvastatin [Lipitor] 20 mg PO DAILY #30 tab 08/11/17 01/04/18 Rx Budesonide-Formot 160-4.5 Mcg 2 puff INHALATION BID 09/17/17 01/04/18 History [Symbicort 160-4.5 Mcg Inhaler] Metoprolol Tartrate 12.5 mg PO BID 09/17/17 01/04/18 History Montelukast [Singulair] 10 mg PO HS 09/17/17 01/04/18 History Nitroglycerin Sl Tabs [Nitrostat] 0.4 mg SUBLINGUAL Q5M PRN #25 tab 09/24/17 Rx Riboflavin [Vitamin B-2] 200 mg PO DAILY 09/24/17 01/04/18 History Albuterol Inhaler [Ventolin Hfa 1 - 2 puff INHALATION Q6HR PRN 10/22/17 History Inhaler] Lidocaine [Lidocaine 5% Rectal 1 applic TOPICAL QID PRN 10/22/17 01/04/18 History Cream] Ondansetron [Zofran] 4 mg PO DAILY PRN 12/03/17 01/04/18 History Pantoprazole [Protonix] 40 mg PO DAILY 12/03/17 01/04/18 History Omeprazole [PriLOSEC] 20 mg PO 1200 12/29/17 01/04/18 History Ranitidine HCl 150 mg PO BID 12/29/17 01/04/18 History Doxycycline [Vibramycin] 100 mg PO Q12HR 7 Days 01/03/18 01/04/18 Rx predniSONE 50 mg PO DAILY #5 tablet 01/03/18 01/04/18 Rx Ipratropium-Albuterol Nebulize 3 ml INHALATION RT-Q4H 01/04/18 01/04/18 History [Duoneb 0.5 mg-3 mg/3 ml Soln] Allergies Allergy/AdvReac Type Severity Reaction Status Date / Time ciprofloxacin [From Cipro] Allergy Rash/Hives Verified 01/04/18 17:52 ciprofloxacin HCl Allergy Rash/Hives Verified 01/04/18 17:52 [From Cipro] clarithromycin [From Biaxin] Allergy Rash/Hives Verified 01/04/18 17:52 dicyclomine [From Bentyl] Allergy Confusion Verified 01/04/18 17:52 hydrocodone bitartrate Allergy Rash/Hives Verified 01/04/18 17:52 [From Vicodin] hydromorphone HCl Allergy Itching Verified 01/04/18 17:52 [From Dilaudid] levofloxacin [From Levaquin] Allergy Rash/Hives Verified 01/04/18 17:52 lorazepam [From Ativan] Allergy seizures Verified 01/04/18 17:52 meloxicam [From Mobic] Allergy Rash/Hives Verified 01/04/18 17:52 oxycodone Allergy Rash/Hives Verified 01/04/18 17:52 Penicillins Allergy Swelling Verified 01/04/18 17:52 IN THROAT promethazine HCl Allergy seizures Verified 01/04/18 17:52 [From Phenergan] propoxyphene napsylate Allergy Rash/Hives Verified 01/04/18 17:52 [From Darvocet-N] tramadol HCl [From Ultram] Allergy seizures Verified 01/04/18 17:52 ipratropium [From Atrovent] AdvReac pain Verified 01/04/18 17:52 Physical Exam Vitals: Vital Signs Temp Pulse Pulse Resp BP BP Pulse Ox 01/05/18 12:04 92 14 01/05/18 11:56 90 14 01/05/18 09:04 98 01/05/18 08:54 94 20 94 L 01/05/18 08:00 20 01/05/18 05:45 97.2 F L 84 18 131/65 98 01/05/18 01:00 97.1 F L 118 H 22 162/79 94 L 01/05/18 00:01 108 H 01/04/18 23:50 104 H 01/04/18 23:38 98.8 F 103 H 18 144/80 97 01/04/18 22:29 105 H 18 149/86 95 01/04/18 18:57 112 H 17 134/74 96 01/04/18 17:31 113 H 18 01/04/18 17:25 111 H 20 01/04/18 16:41 98.6 F 130 H 24 162/85 98 Intake and Output 01/04/18 01/05/18 01/05/18 22:59 06:59 14:59 Intake Total 600 Balance 600 Intake: Oral 600 Other: Voiding Method Toilet Toilet # Voids 1 3 Weight 64.864 kg 65.9 kg PHYSICAL EXAMINATION: GENERAL: The patient is alert and oriented x3, not in any acute distress. Well developed, well nourished. HEENT: Pupils are round and equally reacting to light. EOMI. No scleral icterus. No conjunctival pallor. Normocephalic, atraumatic. No pharyngeal erythema. No thyromegaly. CARDIOVASCULAR: S1 and S2 present. No murmurs, rubs, or gallops. PULMONARY: Decreased air entry with minimal expiratory wheezing ABDOMEN: Soft, nontender, nondistended, normoactive bowel sounds. No palpable organomegaly. MUSCULOSKELETAL: No joint swelling or deformity. EXTREMITIES: No cyanosis, clubbing, or pedal edema. NEUROLOGICAL: Gross neurological examination did not reveal any focal deficits. SKIN: No rashes. Results CBC & Chem 7: 01/04/18 18:05 01/04/18 18:05 Labs: Abnormal Lab Results - Last 24 Hours (Table) 01/04/18 01/04/18 01/04/18 Range/Units 18:05 18:05 18:44 WBC 20.6 H (3.8-10.6) k/uL MCV 100.1 H (80.0-100.0) fL Neutrophils # 18.4 H (1.3-7.7) k/uL APTT 19.2 L (22.0-30.0) sec Chloride 109 H (98-107) mmol/L Glucose 129 H (74-99) mg/dL Thrombosis Risk Factor Assmnt - Choose All That Apply Any of the Below Risk Factors Present?: Yes Each Factor Represents 1 point: Abnormal pulmonary function (COPD) Other Risk Factors: Yes Each Risk Factor Represents 2 Points: Age 61-74 years Other congenital or acquired thrombophilia - If yes, enter type in comment: No Thrombosis Risk Factor Assessment Total Risk Factor Score: 3 Thrombosis Risk Factor Assessment Level: Moderate Risk Assessment and Plan Plan: -COPD exacerbation: Patient is on IV steroids and doxycycline along with inhaled treatments. -Hypertension -Seizure disorder -Hyperlipidemia -Chronic pancreatitis -Anxiety or panic disorder. For above-mentioned chronic medical problems patient will be resumed on appropriate home medications.
[2018-01-05] MEDS: DOXYCYCLINE MONOHYDRATE 100 MG CAPSULE PO SCH ×2 (16:06→22:14)
[2018-01-05] MEDS: SYMBICORT 160-4.5 MCG INHALER INHALATION SCH (19:41)
[2018-01-05] MEDS: FAMOTIDINE 20 MG TAB PO SCH (22:15)
[2018-01-06] MEDS: methylPREDNISolone SOD SUCCI 125 MG/2 ML VIAL IV SCH ×3 (00:45→11:11)
[2018-01-06] MEDS: ZOLPIDEM 5 MG TAB PO PRN (00:45)
[2018-01-06] MEDS: METOPROLOL TARTRATE 12.5 MG TAB PO SCH (07:27)
[2018-01-06] MEDS: FAMOTIDINE 20 MG TAB PO SCH (07:27)
[2018-01-06] MEDS: DOXYCYCLINE MONOHYDRATE 100 MG CAPSULE PO SCH (07:27)
[2018-01-06] MEDS ORDERED: PANTOPRAZOLE 40 MG TABLET PO SCH (07:30)
[2018-01-06 08:04] VITALS: BP 143/72; RESP 18; TEMP 98
[2018-01-06] MEDS: IPRATROPIUM-ALBUTEROL 3 ML NEB INHALATION PRN (08:38)
[2018-01-06] MEDS: SYMBICORT 160-4.5 MCG INHALER INHALATION SCH (08:38)
[2018-01-06 08:50] VITALS: PULSE 96
[2018-01-06] MEDS ORDERED: RIBOFLAVIN 200 MG PO SCH (09:00)
[2018-01-06] MEDS ORDERED: ATORVASTATIN 20 MG TAB PO SCH (09:00)
[2018-01-06] MEDS: BRIVARACETAM PO SCH (09:13)
[2018-01-06] MEDS ORDERED: CYANOCOBALAMIN 500 MCG TAB PO SCH (12:00)
[2018-01-06] MEDS ORDERED: PYRIDOXINE 50 MG TAB PO SCH (12:00)
--- NOTE | 2018-01-06 14:37 | P.DS ---
Providers Date of admission: 01/04/18 22:54 Expected date of discharge: 01/06/18 Attending physician: Cecilio Mcconnell Consults: 01/04/18 22:54 Consult Physician Routine Consulting Provider: Michel Xiao Reason/Comments: COPD exacerbation Do you want consulting provider notified?: Yes, Notify in am Primary care physician: Alex Gomez [facility] Course: Final Diagnoses: -COPD exacerbation -Hypertension -Seizure disorder -Hyperlipidemia -Chronic pancreatitis -Anxiety or panic disorder. Hospital course:62-year-old pleasant female with the remote history of smoking 30 years ago with a fever of 86% came in with comments of shortness of breath cough unable to bring up anything patient was seen in the ER last Thursday improved symptoms after which patient was discharged from ER after she was given breathing treatments and a dose of steroid. Patient started having symptoms today morning again unable to breathe patient came to bacteria ER because of that and patient was subsequently admitted patient is presently on 2 L of 5 and saturating 94%. Patient denied any fever chills or 60 did not send pneumonic process. Evaluated by pulmonary, maintained on IV steroids, nebulized medical dilators, antibiotics. Significant clinical improvement. Cleared by pulmonary for discharge. Patient is being discharged home in a stable condition with guarded prognosis. EXAMINATION: GENERAL: The patient is alert and oriented x3, not in any acute distress. CARDIOVASCULAR: S1 and S2 present. No murmurs, rubs, or gallops. PULMONARY: Decreased air entry with no expiratory wheezing ABDOMEN: Soft, nontender, nondistended, normoactive bowel sounds. NEUROLOGICAL: Gross neurological examination did not reveal any focal deficits. The impression and plan of care has been dictated as directed. : I performed a history and examination of this patient, discussed the same with the dictator. I agree with the dictator's note ,documented as a scribe. Any additional findings or plans will be noted. Time taken: 35 minutes Patient Condition at Discharge: Stable Plan - Discharge Summary New Discharge Prescriptions: New predniSONE 10 mg PO DIRECTED #30 tab Continue Brivaracetam [Briviact] 100 mg PO BID Pyridoxine [Vitamin B-6] 50 mg PO DAILY Cyanocobalamin [Vitamin B-12] 500 mcg PO DAILY Desvenlafaxine Succinate [Pristiq] 25 mg PO HS Atorvastatin [Lipitor] 20 mg PO DAILY #30 tab Budesonide-Formot 160-4.5 Mcg [Symbicort 160-4.5 Mcg Inhaler] 2 puff INHALATION BID Montelukast [Singulair] 10 mg PO HS Metoprolol Tartrate 12.5 mg PO BID Riboflavin [Vitamin B-2] 200 mg PO DAILY Nitroglycerin Sl Tabs [Nitrostat] 0.4 mg SUBLINGUAL Q5M PRN #25 tab PRN Reason: Chest Pain Albuterol Inhaler [Ventolin Hfa Inhaler] 1 - 2 puff INHALATION Q6HR PRN PRN Reason: sob Lidocaine [Lidocaine 5% Rectal Cream] 1 applic TOPICAL QID PRN PRN Reason: Pain Pantoprazole [Protonix] 40 mg PO DAILY Ondansetron [Zofran] 4 mg PO DAILY PRN PRN Reason: Nausea Omeprazole [PriLOSEC] 20 mg PO 1200 Doxycycline [Vibramycin] 100 mg PO Q12HR 7 Days Ipratropium-Albuterol Nebulize [Duoneb 0.5 mg-3 mg/3 ml Soln] 3 ml INHALATION RT-Q4H Discontinued Ranitidine HCl 150 mg PO BID predniSONE 50 mg PO DAILY #5 tablet Discharge Medication List Brivaracetam [Briviact] 100 mg PO BID 08/12/16 [History] Cyanocobalamin [Vitamin B-12] 500 mcg PO DAILY 08/05/17 [History] Pyridoxine [Vitamin B-6] 50 mg PO DAILY 08/05/17 [History] Desvenlafaxine Succinate [Pristiq] 25 mg PO HS 08/09/17 [History] Atorvastatin [Lipitor] 20 mg PO DAILY #30 tab 08/11/17 [Rx] Budesonide-Formot 160-4.5 Mcg [Symbicort 160-4.5 Mcg Inhaler] 2 puff INHALATION BID 09/17/17 [History] Metoprolol Tartrate 12.5 mg PO BID 09/17/17 [History] Montelukast [Singulair] 10 mg PO HS 09/17/17 [History] Nitroglycerin Sl Tabs [Nitrostat] 0.4 mg SUBLINGUAL Q5M PRN #25 tab 09/24/17 [Rx ] Riboflavin [Vitamin B-2] 200 mg PO DAILY 09/24/17 [History] Albuterol Inhaler [Ventolin Hfa Inhaler] 1 - 2 puff INHALATION Q6HR PRN [History] Lidocaine [Lidocaine 5% Rectal Cream] 1 applic TOPICAL QID PRN 10/22/17 [History ] Ondansetron [Zofran] 4 mg PO DAILY PRN 12/03/17 [History] Pantoprazole [Protonix] 40 mg PO DAILY 12/03/17 [History] Omeprazole [PriLOSEC] 20 mg PO 1200 12/29/17 [History] Doxycycline [Vibramycin] 100 mg PO Q12HR 7 Days 01/03/18 [Rx] Ipratropium-Albuterol Nebulize [Duoneb 0.5 mg-3 mg/3 ml Soln] 3 ml INHALATION RT -Q4H 01/04/18 [History] predniSONE 10 mg PO DIRECTED #30 tab 01/06/18 [Rx] Follow up Appointment(s)/Referral(s): Michel Xiao DO [Doctor of Osteopathic Medicine] - 01/14/18 2:30 pm (With Sonia Farris NP) Alex Gomez DO [Primary Care Provider] - 01/14/18 1:00 pm Ambulatory/Diagnostic Orders: Complete Blood Count w/diff [LAB.AMB] Time Frame: 3 Days, Location: None Selected Patient Instructions/Handouts: COPD (Chronic Obstructive Pulmonary Disease) (DC ) Activity/Diet/Wound Care/Special Instructions: Regular, low fat diet. Activity as tolerated. Discharge Disposition: HOME SELF-CARE
== END 2018-01-06 12:13 | disposition home or self-care (01) ==
LOC: EC 16:36 → 4MS4W 22:54
PROVIDERS: ADMIT Internal Medicine; ATTEND Internal Medicine
DX: J44.1 Chronic obstructive pulmonary disease with (acute) exacerbation (principal); I10 Essential (primary) hypertension; G40.909 Epilepsy, unspecified, not intractable, without status epilepticus; E78.5 Hyperlipidemia, unspecified; K86.1 Other chronic pancreatitis; F41.0 Panic disorder [episodic paroxysmal anxiety]; Z87.891 Personal history of nicotine dependence; Z79.51 Long term (current) use of inhaled steroids; Z79.899 Other long term (current) drug therapy; Z88.6 Allergy status to analgesic agent; Z88.1 Allergy status to other antibiotic agents; Z88.5 Allergy status to narcotic agent; Z88.0 Allergy status to penicillin; Z88.8 Allergy status to other drugs, medicaments and biological substances; Z87.442 Personal history of urinary calculi; Z85.41 Personal history of malignant neoplasm of cervix uteri; R10.11 Right upper quadrant pain; G89.29 Other chronic pain; Z90.49 Acquired absence of other specified parts of digestive tract; Z80.0 Family history of malignant neoplasm of digestive organs; Z82.49 Family history of ischemic heart disease and other diseases of the circulatory system; Z83.79 Family history of other diseases of the digestive system; Z80.8 Family history of malignant neoplasm of other organs or systems; D72.829 Elevated white blood cell count, unspecified; K21.9 Gastro-esophageal reflux disease without esophagitis; K57.90 Diverticulosis of intestine, part unspecified, without perforation or abscess without bleeding
CPT/HCPCS: 96365 ×2; 96375 ×2; 96376 ×2; 99285; 36415; 94640 ×4; 94760; 93005; 85379; 83880; 80053; 82550; 82553; 84484; 85025; 85610; 85730; 71046; G0378 ×3; J2930 ×3; J3475; J7512

== ENCOUNTER 2018-01-07 16:45 | Emergency (ER) | payer OTHER ==
[2018-01-07] MEDS ORDERED: IPRATROPIUM 0.5 MG/2.5 ML NEBU INHALATION STA (17:30)
[2018-01-07] MEDS ORDERED: ALBUTEROL NEBULIZED 2.5 MG/3 ML INHALATION STA (17:30)
[2018-01-07] MEDS ORDERED: SODIUM CHLORIDE 0.9% 1,000 ML IV STA (17:30)
--- NOTE | 2018-01-07 18:02 | ED ---
General Adult HPI - General Chief complaint: Shortness of Breath Stated complaint: diff breathing Time Seen by Provider: 01/07/18 17:30 Source: patient, RN notes reviewed, old records reviewed Mode of arrival: wheelchair Limitations: no limitations - History of Present Illness Initial comments: This is a 62-year-old female the ER for evaluation today. States she presents for evaluation regards to shortness shortness of breath. Patient has known history of COPD treated recent diagnosis suspicious underlying heart disease. Patient was just discharged from hospital 24 hours ago states she had some increased shortness of breath while going for a walk last night and woke up today with significant shortness of breath, patient does admit to mild anxiety. She states that she tries to do any activity she becomes severely short of breath or chest pain - Related Data Home Medications Medication Instructions Recorded Confirmed Brivaracetam [Briviact] 100 mg PO BID 08/12/16 01/07/18 Cyanocobalamin [Vitamin B-12] 500 mcg PO DAILY 08/05/17 01/07/18 Pyridoxine [Vitamin B-6] 50 mg PO DAILY 08/05/17 01/07/18 Desvenlafaxine Succinate [Pristiq] 25 mg PO HS 08/09/17 01/07/18 Budesonide-Formot 160-4.5 Mcg 2 puff INHALATION RT-BID 09/17/17 01/07/18 [Symbicort 160-4.5 Mcg Inhaler] Metoprolol Tartrate 12.5 mg PO BID 09/17/17 01/07/18 Montelukast [Singulair] 10 mg PO HS 09/17/17 01/07/18 Riboflavin [Vitamin B-2] 200 mg PO DAILY 09/24/17 01/07/18 Albuterol Inhaler [Ventolin Hfa 1 - 2 puff INHALATION RT-Q6H PRN 10/22/17 Inhaler] Lidocaine [Lidocaine 5% Rectal 1 applic TOPICAL QID PRN 10/22/17 01/07/18 Cream] Ondansetron [Zofran] 4 mg PO DAILY PRN 12/03/17 01/07/18 Pantoprazole [Protonix] 40 mg PO DAILY 12/03/17 01/07/18 Omeprazole [PriLOSEC] 20 mg PO 1200 12/29/17 01/07/18 Ipratropium-Albuterol Nebulize 3 ml INHALATION RT-Q4H 01/04/18 01/07/18 [Duoneb 0.5 mg-3 mg/3 ml Soln] Previous Rx's Medication Instructions Recorded Atorvastatin [Lipitor] 20 mg PO DAILY #30 tab 08/11/17 Nitroglycerin Sl Tabs [Nitrostat] 0.4 mg SUBLINGUAL Q5M PRN #25 tab 09/24/17 Doxycycline [Vibramycin] 100 mg PO Q12HR 7 Days 01/03/18 predniSONE 10 mg PO DIRECTED #30 tab 01/06/18 Allergies Allergy/AdvReac Type Severity Reaction Status Date / Time ciprofloxacin [From Cipro] Allergy Rash/Hives Verified 01/07/18 18:03 ciprofloxacin HCl Allergy Rash/Hives Verified 01/07/18 18:03 [From Cipro] clarithromycin [From Biaxin] Allergy Rash/Hives Verified 01/07/18 18:03 dicyclomine [From Bentyl] Allergy Confusion Verified 01/07/18 18:03 hydrocodone bitartrate Allergy Rash/Hives Verified 01/07/18 18:03 [From Vicodin] hydromorphone HCl Allergy Itching Verified 01/07/18 18:03 [From Dilaudid] levofloxacin [From Levaquin] Allergy Rash/Hives Verified 01/07/18 18:03 lorazepam [From Ativan] Allergy seizures Verified 01/07/18 18:03 meloxicam [From Mobic] Allergy Rash/Hives Verified 01/07/18 18:03 oxycodone Allergy Rash/Hives Verified 01/07/18 18:03 Penicillins Allergy Swelling Verified 01/07/18 18:03 IN THROAT promethazine HCl Allergy seizures Verified 01/07/18 18:03 [From Phenergan] propoxyphene napsylate Allergy Rash/Hives Verified 01/07/18 18:03 [From Darvocet-N] tramadol HCl [From Ultram] Allergy seizures Verified 01/07/18 18:03 ipratropium [From Atrovent] AdvReac pain Verified 01/07/18 18:03 Review of Systems ROS Statement: Those systems with pertinent positive or pertinent negative responses have been documented in the HPI. ROS Other: All systems not noted in ROS Statement are negative. Past Medical History Past Medical History: Asthma, Cancer, COPD, Hyperlipidemia, Hypertension, Seizure Disorder Additional Past Medical History / Comment(s): Last seizure 04/2017, chronic pancreatitis, kidney stones, cervical cancer. recurring hiatal hernia, migraines, heart murmur, diverticulitis, hx of LFT, chronic RUQ pain, pain clinic. History of Any Multi-Drug Resistant Organisms: None Reported Past Surgical History: Appendectomy, Bowel Resection, Cholecystectomy, Hysterectomy, Orthopedic Surgery Additional Past Surgical History / Comment(s): Surgery on right salivary gland, right elbow nerve surgery, EGD, colonoscopy, renee fundoplasty, cervical cancer surgery 1988, bilateral oophorectomy. exploratory laparscopies, pain clinic procedures. Past Anesthesia/Blood Transfusion Reactions: Previous Problems w/ Anesthesia, Postoperative Nausea & Vomiting (PONV) Additional Past Anesthesia/Blood Transfusion Reaction / Comment(s): Takes long time to awaken. Past Psychological History: Anxiety, Panic Disorder Smoking Status: Former smoker Past Alcohol Use History: None Reported Past Drug Use History: None Reported - Past Family History Mother Sister(s) Family Medical History: Cancer Additional Family Medical History / Comment(s): COLON CANCER. GRANDFATHER ALSO HAD COLON CANCER Mother Family Medical History: Cancer Additional Family Medical History / Comment(s): Colon cancer Father Family Medical History: Hypertension Brother(s) Family Medical History: No Reported History Additional Family Medical History / Comment(s): Diverticulitis Sister(s) Family Medical History: Cancer Additional Family Medical History / Comment(s): Head and neck cancer, brain aneurysm Daughter(s) Family Medical History: No Reported History Son(s) Family Medical History: No Reported History General Exam Limitations: no limitations General appearance: alert, in no apparent distress, anxious Head exam: Present: atraumatic, normocephalic, normal inspection Eye exam: Present: normal appearance, PERRL, EOMI. Absent: scleral icterus, conjunctival injection, periorbital swelling ENT exam: Present: normal exam, mucous membranes moist Neck exam: Present: normal inspection. Absent: tenderness, meningismus, lymphadenopathy Respiratory exam: Present: wheezes. Absent: normal lung sounds bilaterally, respiratory distress, rales, rhonchi, stridor Cardiovascular Exam: Present: normal rhythm, tachycardia, normal heart sounds. Absent: systolic murmur, diastolic murmur, rubs, gallop, clicks GI/Abdominal exam: Present: soft, normal bowel sounds. Absent: distended, tenderness, guarding, rebound, rigid Extremities exam: Present: normal inspection, full ROM, normal capillary refill. Absent: tenderness, pedal edema, joint swelling, calf tenderness Back exam: Present: normal inspection Neurological exam: Present: alert, oriented X3, CN II-XII intact Psychiatric exam: Present: normal affect, normal mood Skin exam: Present: warm, dry, intact, normal color. Absent: rash Course Vital Signs 01/07/18 01/07/18 01/07/18 17:05 18:08 18:37 Temperature 98.5 F Pulse Rate 110 H 92 98 Respiratory 24 18 18 Rate Blood Pressure 143/72 O2 Sat by Pulse 99 Oximetry 01/07/18 01/07/18 19:04 19:57 Temperature Pulse Rate 108 H 107 H Respiratory 16 18 Rate Blood Pressure 136/64 151/80 O2 Sat by Pulse 95 97 Oximetry - Reevaluation(s) Reevaluation #1: 01/07/18 20:17 Patient's symptoms are significantly improved here in the emergency room Reevaluation #2: 01/07/18 20:17 Patient's oxygen level remains normal, patient states 100 heart rate is up at home oxygen still remains normal 96 percent EKG Findings - EKG Comments: EKG Findings:: EKG shows normal sinus rhythm rate of 99, UT 1:30, QRS 74, QTC 441 Medical Decision Making - Medical Decision Making 62 female the ER with COPD coming of COPD/anxiety reaction. Patient's feeling much better on oxygen here in the ER, patient symptoms are improved patient can be discharged home she has CT which is negative is no acute distress - Lab Data Result diagrams: 01/07/18 18:22 01/07/18 18:22 Lab Results 01/07/18 01/07/18 01/07/18 Range/Units 18:22 18:22 18:22 WBC 13.1 H (3.8-10.6) k/uL RBC 4.40 (3.80-5.40) m/uL Hgb 14.4 (11.4-16.0) gm/dL Hct 42.4 (34.0-46.0) % MCV 96.4 (80.0-100.0) fL MCH 32.7 (25.0-35.0) pg MCHC 33.9 (31.0-37.0) g/dL RDW 12.4 (11.5-15.5) % Plt Count 321 (150-450) k/uL Neutrophils % 86 % Lymphocytes % 8 % Monocytes % 3 % Eosinophils % 2 % Basophils % 0 % Neutrophils # 11.3 H (1.3-7.7) k/uL Lymphocytes # 1.1 (1.0-4.8) k/uL Monocytes # 0.5 (0-1.0) k/uL Eosinophils # 0.2 (0-0.7) k/uL Basophils # 0.0 (0-0.2) k/uL PT (9.0-12.0) sec INR (<1.2) APTT (22.0-30.0) sec Sodium 139 (137-145) mmol/L Potassium 4.7 (3.5-5.1) mmol/L Chloride 106 (98-107) mmol/L Carbon Dioxide 21 L (22-30) mmol/L Anion Gap 12 mmol/L BUN 18 H (7-17) mg/dL Creatinine 0.70 (0.52-1.04) mg/dL Est GFR (CKD-EPI)AfAm >90 (>60 ml/min/1.73 sqM) Est GFR (CKD-EPI)NonAf >90 (>60 ml/min/1.73 sqM) Glucose 109 H (74-99) mg/dL Calcium 10.0 (8.4-10.2) mg/dL Total Bilirubin 0.8 (0.2-1.3) mg/dL AST 58 H (14-36) U/L ALT 44 (9-52) U/L Alkaline Phosphatase 85 (38-126) U/L Total Creatine Kinase 54 (30-135) U/L CK-MB (CK-2) 1.9 (0.0-2.4) ng/mL CK-MB (CK-2) Rel Index 3.5 Troponin I <0.012 (0.000-0.034) ng/mL NT-Pro-B Natriuret Pep pg/mL Total Protein 6.5 (6.3-8.2) g/dL Albumin 4.4 (3.5-5.0) g/dL 01/07/18 01/07/18 Range/Units 18:22 18:22 WBC (3.8-10.6) k/uL RBC (3.80-5.40) m/uL Hgb (11.4-16.0) gm/dL Hct (34.0-46.0) % MCV (80.0-100.0) fL MCH (25.0-35.0) pg MCHC (31.0-37.0) g/dL RDW (11.5-15.5) % Plt Count (150-450) k/uL Neutrophils % % Lymphocytes % % Monocytes % % Eosinophils % % Basophils % % Neutrophils # (1.3-7.7) k/uL Lymphocytes # (1.0-4.8) k/uL Monocytes # (0-1.0) k/uL Eosinophils # (0-0.7) k/uL Basophils # (0-0.2) k/uL PT 18.0 H (9.0-12.0) sec INR 2.0 H (<1.2) APTT 23.8 (22.0-30.0) sec Sodium (137-145) mmol/L Potassium (3.5-5.1) mmol/L Chloride (98-107) mmol/L Carbon Dioxide (22-30) mmol/L Anion Gap mmol/L BUN (7-17) mg/dL Creatinine (0.52-1.04) mg/dL Est GFR (CKD-EPI)AfAm (>60 ml/min/1.73 sqM) Est GFR (CKD-EPI)NonAf (>60 ml/min/1.73 sqM) Glucose (74-99) mg/dL Calcium (8.4-10.2) mg/dL Total Bilirubin (0.2-1.3) mg/dL AST (14-36) U/L ALT (9-52) U/L Alkaline Phosphatase (38-126) U/L Total Creatine Kinase (30-135) U/L CK-MB (CK-2) (0.0-2.4) ng/mL CK-MB (CK-2) Rel Index Troponin I (0.000-0.034) ng/mL NT-Pro-B Natriuret Pep 500 pg/mL Total Protein (6.3-8.2) g/dL Albumin (3.5-5.0) g/dL - Radiology Data Radiology results: report reviewed (CTA chest is negative), image reviewed Disposition Clinical Impression: Asthma with exacerbation, Acute exacerbation of chronic obstructive airways disease, Anxiety Disposition: HOME SELF-CARE Condition: Good Instructions: Bronchospasm (ED), Acute Bronchitis (ED) Is patient prescribed a controlled substance at d/c from ED?: No Referrals: Alex Gomez DO [Primary Care Provider] - 1-2 days
[2018-01-07 18:38] LABS: Basophils % (A) 0 %; Eosinophils # (A) 0.2 k/uL (0-0.7); Eosinophils % (A) 2 %; HCT 42.4 % (34.0-46.0); HGB 14.4 gm/dL (11.4-16.0); Lymphocytes # (A) 1.1 k/uL (1.0-4.8); Lymphocytes % (A) 8 %; MCH 32.7 pg (25.0-35.0); MCHC 33.9 g/dL (31.0-37.0); MCV 96.4 fL (80.0-100.0); Monocytes # (A) 0.5 k/uL (0-1.0); Monocytes % (A) 3 %; Neutrophils # (A) 11.3 k/uL (1.3-7.7); Neutrophils % (A) 86 %; Platelet Count 321 k/uL (150-450); RDW 12.4 % (11.5-15.5); WBC 13.1 k/uL (3.8-10.6)
[2018-01-07 18:45] LABS: ALT 44 U/L (9-52); AST 58 U/L (14-36); Albumin 4.4 g/dL (3.5-5.0); Alkaline Phosphatase 85 U/L (38-126); Anion Gap 12 mmol/L; Blood Urea Nitrogen 18 mg/dL (7-17); Carbon Dioxide 21 mmol/L (22-30); Chloride 106 mmol/L (98-107); Glucose 109 mg/dL (74-99); Potassium 4.7 mmol/L (3.5-5.1); Sodium 139 mmol/L (137-145); Total Bilirubin 0.8 mg/dL (0.2-1.3); Total Protein 6.5 g/dL (6.3-8.2)
[2018-01-07 18:49] LABS: Creatine Kinase 54 U/L (30-135)
[2018-01-07 19:02] LABS: Creatine Kinase MB 1.9 ng/mL (0.0-2.4); Troponin I <0.012 ng/mL (0.000-0.034)
[2018-01-07 19:06] LABS: Partial Thromboplastin Time 23.8 sec (22.0-30.0)
[2018-01-07 19:58] VITALS: RESP 18
--- NOTE | 2018-01-07 20:03 | CT ---
EXAMINATION TYPE: CT angio chest DATE OF EXAM: 01/07/2018 7:57 PM COMPARISON: August 10, 2017 HISTORY: SOB AND CHEST PAIN CT DLP: 228.1 mGycm Automated exposure control for dose reduction was used. CONTRAST: CTA scan of the thorax is performed with IV Contrast, patient injected with 60 mL of Isovue 370, pulm onary embolism protocol. There are 3-D post processed images.. FINDINGS: The lungs are clear of consolidation. There is no pleural effusion. Heart appears normal. Thoracic ao rta appears normal. There is no sign of aneurysm or dissection. I see no filling defects in the pulmo nary arteries. There is no mediastinal adenopathy. There are no hilar masses. There is small hiatal h ernia. The bony thorax appears intact. IMPRESSION: NO EVIDENCE OF PULMONARY EMBOLISM. THERE IS CLEARING OF SUBSEGMENTAL ATELECTASIS AT THE RIGHT LUNG BA SE COMPARED TO LAST EXAM. SMALL HIATAL HERNIA.
[2018-01-07 21:06] VITALS: BP 149/82; PULSE 100; TEMP 98.2
== END 2018-01-07 21:07 | disposition home or self-care (01) ==
LOC: EC 16:45
DX: J44.1 Chronic obstructive pulmonary disease with (acute) exacerbation (principal); F41.9 Anxiety disorder, unspecified; I10 Essential (primary) hypertension; G40.909 Epilepsy, unspecified, not intractable, without status epilepticus; Z87.891 Personal history of nicotine dependence; Z79.51 Long term (current) use of inhaled steroids; Z79.899 Other long term (current) drug therapy; Z88.0 Allergy status to penicillin; Z88.1 Allergy status to other antibiotic agents; Z88.5 Allergy status to narcotic agent; Z88.6 Allergy status to analgesic agent; Z88.8 Allergy status to other drugs, medicaments and biological substances; Z87.19 Personal history of other diseases of the digestive system; Z85.41 Personal history of malignant neoplasm of cervix uteri; Z90.710 Acquired absence of both cervix and uterus
CPT/HCPCS: 36415; 94640; 93005; 83880; 80053; 82550; 82553; 84484; 85025; 85610; 85730; 71275; 99285; 96360; 96361; Q9967

== ENCOUNTER → 2018-03-11 | Outpatient (CLI) | payer OTHER ==
--- NOTE | 2018-03-11 13:59 | MM ---
Reason for exam: screening (asymptomatic). Last mammogram was performed 6 months ago. History: Patient is postmenopausal and has history of other cancer at age 33. Took estrogen for 1 year beginning at age 33. Took progesterone for 1 year beginning at age 33. Physical Findings: Nurse did not find any significant physical abnormalities on exam. MG Diagnostic Mammo w CAD [place] Bilateral CC and MLO view(s) were taken. Prior study comparison: September 11, 2017, bilateral MG screening mammo w CAD. August 08, 2016, mammogram, performed at [facility]. There are scattered fibroglandular densities. Chronic nodularity bilateral. No significant changes when compared with prior studies. These results were verbally communicated with the patient and result sheet given to the patient on 03/11/18 ASSESSMENT: Benign, BI-RAD 2 RECOMMENDATION: Routine screening mammogram of both breasts in 1 year.
== END | disposition home or self-care (01) ==
LOC: RADMAMWWP 12:57
PROVIDERS: ATTEND Family Medicine
DX: R92.8 Other abnormal and inconclusive findings on diagnostic imaging of breast (principal)
CPT/HCPCS: 77066

== ENCOUNTER → 2018-04-27 | Outpatient (CLI) | payer OTHER ==
[2018-04-27 12:08] LABS: Basophils # (A) 0.1 k/uL (0-0.2); Basophils % (A) 1 %; Eosinophils # (A) 0.3 k/uL (0-0.7); Eosinophils % (A) 4 %; HCT 41.3 % (34.0-46.0); HGB 13.4 gm/dL (11.4-16.0); Lymphocytes # (A) 1.7 k/uL (1.0-4.8); Lymphocytes % (A) 22 %; MCH 31.6 pg (25.0-35.0); MCHC 32.5 g/dL (31.0-37.0); MCV 97.2 fL (80.0-100.0); Mean Platelet Volume 7.1; Monocytes # (A) 0.4 k/uL (0-1.0); Monocytes % (A) 6 %; Neutrophils # (A) 4.9 k/uL (1.3-7.7); Neutrophils % (A) 65 %; Platelet Count 281 k/uL (150-450); RBC 4.26 m/uL (3.80-5.40); RDW 12.4 % (11.5-15.5); WBC 7.5 k/uL (3.8-10.6)
[2018-04-27 12:22] LABS: INR 0.9 (<1.2); Partial Thromboplastin Time 22.6 sec (22.0-30.0); Prothrombin Time 9.7 sec (9.0-12.0)
[2018-04-27 16:14] LABS: Anion Gap 6.1 mmol/L (4.00-12.00); Carbon Dioxide 26.9 mmol/L (21.6-31.8); Potassium 4.6 mmol/L (3.5-5.5)
== END ==
LOC: LABWHC1 11:04
PROVIDERS: ATTEND Internal Medicine
DX: I25.10 Atherosclerotic heart disease of native coronary artery without angina pectoris (principal)
CPT/HCPCS: 36415; 80051; 82565; 84520; 85025; 85610; 85730

== ENCOUNTER → 2018-05-25 | Outpatient (CLI) | payer OTHER ==
[2018-05-25 19:19] LABS: Anion Gap 10.3 mmol/L (4.00-12.00); Carbon Dioxide 27.7 mmol/L (21.6-31.8)
== END | disposition home or self-care (01) ==
LOC: LABWHC1 13:27
PROVIDERS: ATTEND Internal Medicine
DX: I25.10 Atherosclerotic heart disease of native coronary artery without angina pectoris (principal)
CPT/HCPCS: 36415; 80051; 82565; 84520

== ENCOUNTER 2018-06-14 10:16 | Emergency (ER) | payer OTHER ==
[2018-06-14 10:23] VITALS: RESP 18; TEMP 98.4
[2018-06-14] MEDS ORDERED: SODIUM CHLORIDE 0.9% 500 ML 500 ML IV STA (10:56)
--- NOTE | 2018-06-14 10:56 | ED ---
General Adult HPI - General Chief complaint: Seizure Stated complaint: Seizure Time Seen by Provider: 06/14/18 10:29 Source: patient Mode of arrival: ambulatory Limitations: no limitations - History of Present Illness Initial comments: Dictation was produced using [employer] dictation software. please excuse any grammatical, word or spelling errors. Chief Complaint: Patient is 62-year-old female with history of epilepsy. She takes antiseizure medications brought in for altered mental status. History of Present Illness: 62-year-old female. She has past medical history of epilepsy. Patient takes antiepileptic medications. Patient has established care with neurologist. 7 PM yesterday patient had episode of seizure. She recovered well from that. This morning she awoke and appeared normal. went to the hospital to do some errands. Those at approximately 8 AM with patient's felt that she was last at baseline. He came back home noted that EMS was there. Patient had allegedly called neurologist for unknown reason. EMS is not at bedside for report. at bedside reports that patient appears altered. She is usually verbal and coherent. Patient doesn't follow commands. Unable to obtain ROS at this time given mental status. PHYSICAL EXAM: General Impression: Eyes open, no acute distress, uncooperative, doesn't follow instructions HEENT: Normocephalic atraumatic, extra-ocular movements intact, pupils equal and reactive to light bilaterally, mucous membranes moist. Cardiovascular: Heart regular rate and rhythm, S1&S2 audible, no murmurs, rubs or gallops Chest: Lungs clear to auscultation bilaterally, no rhonchi, no wheeze, no rales Abdomen: Bowel sounds present, abdomen soft, non-tender, non-distended, no organomegaly Musculoskeletal: Pulses present and equal in all extremities, no peripheral edema Neurological: Moves all extremities grossly, with Spons to pain, eyes open Skin: Intact with no visualized rashes ED course: 62-year-old female presents with altered mental status. Vital signs upon arrival are within acceptable limits. Patient appears severely a phasic. Code stroke paged. Code stroke neurologist was contacted reviewed films Dr. turner. He states that patient is not a TPA candidate at this time. Recommends 1 g of Keppra and seizure precautions. Patient reevaluated and found to be within acceptable limits. Patient is mentating appropriately. Patient states she does not want Keppra because it makes her aggressive. Discussed patient case with Dr. Bowen patient's neurologist admits patient be admitted to light. Confirm This with Dr. Mcconnell. Patient's symptoms are suspicious for psychogenic seizures. At this point I believe patient does not need any antiseizure medication at this time. Patient stable for transfer to [facility] where there is neurology coverage.Laboratory evaluation obtained. CBC, metabolic panel, electrolytes showed no abnormalities. CT is unremarkable. Chest x-ray is unremarkable. CT angiogram of the head and neck shows no acute processes. Patient to be transferred to [facility]. Septic physician is Dr. Coburn. EKG interpretation: Ventricular rate 89, normal sinus rhythm, KS interval 140, QRS 86, QTC 467. No KS prolongation, no QTC prolongation, no ST or T-wave changes noted. EKG compared to 01/07/2018 showing no changes. Overall, this EKG is unremarkable - Related Data Home Medications Medication Instructions Recorded Confirmed Brivaracetam [Briviact] 100 mg PO BID 08/12/16 01/07/18 Cyanocobalamin [Vitamin B-12] 500 mcg PO DAILY 08/05/17 01/07/18 Pyridoxine [Vitamin B-6] 50 mg PO DAILY 08/05/17 01/07/18 Desvenlafaxine Succinate [Pristiq] 25 mg PO HS 08/09/17 01/07/18 Budesonide-Formot 160-4.5 Mcg 2 puff INHALATION RT-BID 09/17/17 01/07/18 [Symbicort 160-4.5 Mcg Inhaler] Metoprolol Tartrate 12.5 mg PO BID 09/17/17 01/07/18 Montelukast [Singulair] 10 mg PO HS 09/17/17 01/07/18 Riboflavin [Vitamin B-2] 200 mg PO DAILY 09/24/17 01/07/18 Albuterol Inhaler [Ventolin Hfa 1 - 2 puff INHALATION RT-Q6H PRN 10/22/17 Inhaler] Lidocaine [Lidocaine 5% Rectal 1 applic TOPICAL QID PRN 10/22/17 01/07/18 Cream] Ondansetron [Zofran] 4 mg PO DAILY PRN 12/03/17 01/07/18 Pantoprazole [Protonix] 40 mg PO DAILY 12/03/17 01/07/18 Omeprazole [PriLOSEC] 20 mg PO 1200 12/29/17 01/07/18 Ipratropium-Albuterol Nebulize 3 ml INHALATION RT-Q4H 01/04/18 01/07/18 [Duoneb 0.5 mg-3 mg/3 ml Soln] Previous Rx's Medication Instructions Recorded Atorvastatin [Lipitor] 20 mg PO DAILY #30 tab 08/11/17 Nitroglycerin Sl Tabs [Nitrostat] 0.4 mg SUBLINGUAL Q5M PRN #25 tab 09/24/17 Doxycycline [Vibramycin] 100 mg PO Q12HR 7 Days 01/03/18 predniSONE 10 mg PO DIRECTED #30 tab 01/06/18 Allergies Allergy/AdvReac Type Severity Reaction Status Date / Time ciprofloxacin [From Cipro] Allergy Rash/Hives Verified 01/07/18 18:03 ciprofloxacin HCl Allergy Rash/Hives Verified 01/07/18 18:03 [From Cipro] clarithromycin [From Biaxin] Allergy Rash/Hives Verified 01/07/18 18:03 dicyclomine [From Bentyl] Allergy Confusion Verified 01/07/18 18:03 hydrocodone bitartrate Allergy Rash/Hives Verified 01/07/18 18:03 [From Vicodin] hydromorphone HCl Allergy Itching Verified 01/07/18 18:03 [From Dilaudid] levofloxacin [From Levaquin] Allergy Rash/Hives Verified 01/07/18 18:03 lorazepam [From Ativan] Allergy seizures Verified 01/07/18 18:03 meloxicam [From Mobic] Allergy Rash/Hives Verified 01/07/18 18:03 oxycodone Allergy Rash/Hives Verified 01/07/18 18:03 Penicillins Allergy Swelling Verified 01/07/18 18:03 IN THROAT promethazine HCl Allergy seizures Verified 01/07/18 18:03 [From Phenergan] propoxyphene napsylate Allergy Rash/Hives Verified 01/07/18 18:03 [From Darvocet-N] tramadol HCl [From Ultram] Allergy seizures Verified 01/07/18 18:03 ipratropium [From Atrovent] AdvReac pain Verified 01/07/18 18:03 Review of Systems ROS Statement: Those systems with pertinent positive or pertinent negative responses have been documented in the HPI. ROS Other: All systems not noted in ROS Statement are negative. Past Medical History Past Medical History: Asthma, Cancer, COPD, Hyperlipidemia, Hypertension, Seizure Disorder Additional Past Medical History / Comment(s): Last seizure 04/2017, chronic pancreatitis, kidney stones, cervical cancer. recurring hiatal hernia, migraines, heart murmur, diverticulitis, hx of LFT, chronic RUQ pain, pain clinic. History of Any Multi-Drug Resistant Organisms: None Reported Past Surgical History: Appendectomy, Bowel Resection, Cholecystectomy, Hysterectomy, Orthopedic Surgery Additional Past Surgical History / Comment(s): Surgery on right salivary gland, right elbow nerve surgery, EGD, colonoscopy, renee fundoplasty, cervical cancer surgery 1988, bilateral oophorectomy. exploratory laparscopies, pain clinic procedures. Past Anesthesia/Blood Transfusion Reactions: Previous Problems w/ Anesthesia, Postoperative Nausea & Vomiting (PONV) Additional Past Anesthesia/Blood Transfusion Reaction / Comment(s): Takes long time to awaken. Past Psychological History: Anxiety, Panic Disorder Smoking Status: Former smoker Past Alcohol Use History: None Reported Past Drug Use History: None Reported - Past Family History Mother Sister(s) Family Medical History: Cancer Additional Family Medical History / Comment(s): COLON CANCER. GRANDFATHER ALSO HAD COLON CANCER Mother Family Medical History: Cancer Additional Family Medical History / Comment(s): Colon cancer Father Family Medical History: Hypertension Brother(s) Family Medical History: No Reported History Additional Family Medical History / Comment(s): Diverticulitis Sister(s) Family Medical History: Cancer Additional Family Medical History / Comment(s): Head and neck cancer, brain aneurysm Daughter(s) Family Medical History: No Reported History Son(s) Family Medical History: No Reported History General Exam Limitations: no limitations Course Vital Signs 06/14/18 06/14/18 06/14/18 10:18 10:45 11:00 Temperature 98.4 F Pulse Rate 102 H 85 86 Respiratory 18 18 18 Rate Blood Pressure 128/78 142/82 137/78 O2 Sat by Pulse 98 98 100 Oximetry 06/14/18 06/14/18 06/14/18 11:15 11:36 11:45 Temperature Pulse Rate 90 91 82 Respiratory 18 18 18 Rate Blood Pressure 158/72 143/81 145/89 O2 Sat by Pulse 98 99 100 Oximetry 06/14/18 11:57 Temperature Pulse Rate 87 Respiratory 18 Rate Blood Pressure 143/81 O2 Sat by Pulse 100 Oximetry Medical Decision Making - Lab Data Result diagrams: 06/14/18 10:38 06/14/18 10:38 Lab Results 06/14/18 06/14/18 06/14/18 Range/Units 10:38 10:38 10:38 WBC 8.2 (3.8-10.6) k/uL RBC 4.85 (3.80-5.40) m/uL Hgb 15.3 (11.4-16.0) gm/dL Hct 44.7 (34.0-46.0) % MCV 92.1 D (80.0-100.0) fL MCH 31.5 (25.0-35.0) pg MCHC 34.2 (31.0-37.0) g/dL RDW 12.4 (11.5-15.5) % Plt Count 299 (150-450) k/uL Neutrophils % 66 % Lymphocytes % 22 % Monocytes % 6 % Eosinophils % 4 % Basophils % 1 % Neutrophils # 5.4 (1.3-7.7) k/uL Lymphocytes # 1.8 (1.0-4.8) k/uL Monocytes # 0.5 (0-1.0) k/uL Eosinophils # 0.3 (0-0.7) k/uL Basophils # 0.1 (0-0.2) k/uL PT (9.0-12.0) sec INR (<1.2) APTT (22.0-30.0) sec Sodium 141 (137-145) mmol/L Potassium 3.5 (3.5-5.1) mmol/L Chloride 102 (98-107) mmol/L Carbon Dioxide 28 (22-30) mmol/L Anion Gap 11 mmol/L BUN 20 H (7-17) mg/dL Creatinine 0.71 (0.52-1.04) mg/dL Est GFR (CKD-EPI)AfAm >90 (>60 ml/min/1.73 sqM) Est GFR (CKD-EPI)NonAf >90 (>60 ml/min/1.73 sqM) Glucose 76 (74-99) mg/dL Calcium 10.0 (8.4-10.2) mg/dL Total Bilirubin 0.6 (0.2-1.3) mg/dL AST 28 (14-36) U/L ALT 26 (9-52) U/L Alkaline Phosphatase 115 (38-126) U/L Total Creatine Kinase 74 (30-135) U/L CK-MB (CK-2) 0.5 (0.0-2.4) ng/mL CK-MB (CK-2) Rel Index 0.7 Troponin I <0.012 (0.000-0.034) ng/mL Total Protein 7.0 (6.3-8.2) g/dL Albumin 4.7 (3.5-5.0) g/dL 06/14/18 Range/Units 10:38 WBC (3.8-10.6) k/uL RBC (3.80-5.40) m/uL Hgb (11.4-16.0) gm/dL Hct (34.0-46.0) % MCV (80.0-100.0) fL MCH (25.0-35.0) pg MCHC (31.0-37.0) g/dL RDW (11.5-15.5) % Plt Count (150-450) k/uL Neutrophils % % Lymphocytes % % Monocytes % % Eosinophils % % Basophils % % Neutrophils # (1.3-7.7) k/uL Lymphocytes # (1.0-4.8) k/uL Monocytes # (0-1.0) k/uL Eosinophils # (0-0.7) k/uL Basophils # (0-0.2) k/uL PT 9.9 (9.0-12.0) sec INR 0.9 (<1.2) APTT 22.4 (22.0-30.0) sec Sodium (137-145) mmol/L Potassium (3.5-5.1) mmol/L Chloride (98-107) mmol/L Carbon Dioxide (22-30) mmol/L Anion Gap mmol/L BUN (7-17) mg/dL Creatinine (0.52-1.04) mg/dL Est GFR (CKD-EPI)AfAm (>60 ml/min/1.73 sqM) Est GFR (CKD-EPI)NonAf (>60 ml/min/1.73 sqM) Glucose (74-99) mg/dL Calcium (8.4-10.2) mg/dL Total Bilirubin (0.2-1.3) mg/dL AST (14-36) U/L ALT (9-52) U/L Alkaline Phosphatase (38-126) U/L Total Creatine Kinase (30-135) U/L CK-MB (CK-2) (0.0-2.4) ng/mL CK-MB (CK-2) Rel Index Troponin I (0.000-0.034) ng/mL Total Protein (6.3-8.2) g/dL Albumin (3.5-5.0) g/dL Disposition Clinical Impression: Altered mental status Disposition: OTHER INSTITUTION NOT DEFINED Condition: Fair Referrals: Alex Gomez DO [Primary Care Provider] - 1-2 days Time of Disposition: 12:09 - Out of Hospital Transfer - Req. Specs Out of Hospital Transfer - Requested Specifics: Other Emergency Center ([facility])
[2018-06-14] MEDS ORDERED: levETIRAcetam IV 1,000 MG in SALINE 1 100ML.BAG IVPB STA (11:07)
--- NOTE | 2018-06-14 11:21 | CT ---
EXAMINATION TYPE: CT brain wo con for TPA DATE OF EXAM: 06/14/2018 HISTORY: Neuro Deficits CT DLP: 1075.4 mGycm. Automated Exposure Control for Dose Reduction was Utilized. TECHNIQUE: CT scan of the head is performed without contrast. COMPARISON: CT brain February 28, 2017. FINDINGS: There is no acute intracranial hemorrhage or midline shift identified. There is diffuse ventricular and sulcal prominence consistent with diffuse age-related cerebral atrophy most prominent over the bilateral frontal lobes. Yuen-white matter differentiation is fairly well-maintained. The globes are intact and the visualized sinuses are clear. IMPRESSION: No acute intracranial hemorrhage or midline shift. There is mild to moderate diffuse ag e-related cerebral atrophy most prominent over the bilateral frontal lobes redemonstrated. No signif icant change from most recent CT study.
[2018-06-14 11:29] LABS: Basophils # (A) 0.1 k/uL (0-0.2); Basophils % (A) 1 %; Eosinophils # (A) 0.3 k/uL (0-0.7); Eosinophils % (A) 4 %; HCT 44.7 % (34.0-46.0); HGB 15.3 gm/dL (11.4-16.0); Lymphocytes # (A) 1.8 k/uL (1.0-4.8); Lymphocytes % (A) 22 %; MCH 31.5 pg (25.0-35.0); MCHC 34.2 g/dL (31.0-37.0); Mean Platelet Volume 7.5; Monocytes # (A) 0.5 k/uL (0-1.0); Monocytes % (A) 6 %; Neutrophils # (A) 5.4 k/uL (1.3-7.7); Neutrophils % (A) 66 %; Platelet Count 299 k/uL (150-450); RBC 4.85 m/uL (3.80-5.40); RDW 12.4 % (11.5-15.5); WBC 8.2 k/uL (3.8-10.6)
[2018-06-14 11:31] LABS: ALT 26 U/L (9-52); AST 28 U/L (14-36); Albumin 4.7 g/dL (3.5-5.0); Alkaline Phosphatase 115 U/L (38-126); Anion Gap 11 mmol/L; Blood Urea Nitrogen 20 mg/dL (7-17); Carbon Dioxide 28 mmol/L (22-30); Chloride 102 mmol/L (98-107); Glucose 76 mg/dL (74-99); Potassium 3.5 mmol/L (3.5-5.1); Sodium 141 mmol/L (137-145); Total Bilirubin 0.6 mg/dL (0.2-1.3)
[2018-06-14 11:40] LABS: INR 0.9 (<1.2); Partial Thromboplastin Time 22.4 sec (22.0-30.0); Prothrombin Time 9.9 sec (9.0-12.0)
--- NOTE | 2018-06-14 11:42 | XR ---
EXAMINATION TYPE: XR chest 1V portable DATE OF EXAM: 06/14/2018 COMPARISON: Chest x-ray January 04, 2018. CTA chest January 07, 2018. HISTORY: Altered mental status and weakness. TECHNIQUE: Single AP portable frontal upright view of the chest is obtained. FINDINGS: There is some chronic parenchymal change without suspicious focal air space opacity, pleur al effusion, or pneumothorax seen. The cardiac silhouette size is stable and upper limits of normal. Overlying EKG leads are seen. Cholecystectomy clips are redemonstrated. The osseous structures are intact. IMPRESSION: No acute process. No significant change from prior studies.
[2018-06-14 11:47] LABS: MCV 92.1 fL (80.0-100.0)
[2018-06-14 11:53] LABS: Creatine Kinase 74 U/L (30-135)
--- NOTE | 2018-06-14 12:05 | CT ---
EXAMINATION TYPE: CODE STROKE: CTA head neck DATE OF EXAM: 06/14/2018 HISTORY: Neuro deficits COMPARISON: NONE CT DLP: 388.7 mGycm. Automated Exposure Control for Dose Reduction was Utilized. TECHNIQUE: CTA scan of the neck is performed without and with IV Contrast, patient injected with 65 ml mL of Isovue 370, axial images are obtained, coronal and sagittal reformatted images are reviewed. Three-D reconstructed images are created on an independent workstation and reviewed. FINDINGS: Carotid/Vascular Structures: There is a conventional three-vessel branch pattern of the aortic arch. The common carotid arteries are patent. Minimal nonhemodynamically significant stenosis is seen of th e proximal right internal carotid artery. There is medial course of the bilateral cervical portions o f the internal carotid arteries. The vertebral arteries are codominant and patent. There is diminutive caliber of the left and focal stenosis of the right posterior cerebral arteries i n the P1 segments. P2 segments appear patent. Posterior communicating arteries are present and theref ore [place] of [place] appears intact. No evidence of aneurysmal outpouching is seen of the intracrania l vasculature. Other: Mild emphysematous changes are seen at the lung apices. Mild multilevel degenerative changes o f the cervical spine are present. 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 IMPRESSION: 1. No evidence of vascular occlusion or dissection. No evidence of aneurysmal outpouching of the vasc ulature of the head or neck. 2. Nonhemodynamically significant stenosis of the P1 segment of the right posterior cerebral artery a nd a short segment of 3 mm with patency and normal caliber of the P2 segment.
[2018-06-14 12:06] LABS: Creatine Kinase MB 0.5 ng/mL (0.0-2.4); Troponin I <0.012 ng/mL (0.000-0.034)
[2018-06-14 12:07] LABS: Appearance,Urine Clear (Clear); Bilirubin,Urine Negative (Negative); Blood,Urine Negative (Negative); Color,Urine Yellow; Glucose,Urine (UA) Negative (Negative); Ketones,Urine Negative (Negative); Leukocyte Esterase,Urine Negative (Negative); Nitrite,Urine Negative (Negative); Protein,Urine Negative (Negative); Specific Gravity,Urine 1.005 (1.001-1.035); Urobilinogen,Urine <2.0 mg/dL (<2.0)
[2018-06-14 12:59] VITALS: BP 138/72; PULSE 82
== END 2018-06-14 13:48 | disposition other institution (70) ==
LOC: EC 10:16
DX: R41.82 Altered mental status, unspecified (principal); J44.9 Chronic obstructive pulmonary disease, unspecified; I10 Essential (primary) hypertension; G40.909 Epilepsy, unspecified, not intractable, without status epilepticus; Z87.891 Personal history of nicotine dependence; Z79.899 Other long term (current) drug therapy; Z79.51 Long term (current) use of inhaled steroids; Z88.1 Allergy status to other antibiotic agents; Z88.5 Allergy status to narcotic agent; Z88.8 Allergy status to other drugs, medicaments and biological substances; Z88.6 Allergy status to analgesic agent; Z88.0 Allergy status to penicillin; Z87.19 Personal history of other diseases of the digestive system; Z86.69 Personal history of other diseases of the nervous system and sense organs; Z85.41 Personal history of malignant neoplasm of cervix uteri; Z90.49 Acquired absence of other specified parts of digestive tract; Z90.710 Acquired absence of both cervix and uterus
CPT/HCPCS: 99285; 96360; 36415; 93005; 80053; 82550; 82553; 84484; 85025; 85610; 85730; 81003; 71045; 70496; 70450; 70498; Q9967

== ENCOUNTER → 2018-08-10 | Outpatient (CLI) | payer OTHER ==
[2018-08-10 13:15] VITALS: BP 134/66; PULSE 104; RESP 16; TEMP 96.8; BMI 26.5
--- NOTE | 2018-08-10 14:33 | P.HPOB ---
History of Present Illness H&P Date: 08/10/18 Chief Complaint: The patient is here for her routine gynecologic exam. This is a 63-year-old G2 PII with an LMP of 1988. She is status post [facility] in 1988 for cervical cancer according to the patient. No adjuvant therapy was needed she had a later BSO for benign reasons. The patient is without gynecologic complaints. Her last pelvic exam was about one year ago. Review of Systems The patient's weight has been stable over the last year. She denies respiratory, cardiac, or G.I. problems. Past Medical History Past Medical History: Asthma, Cancer, COPD, Hyperlipidemia, Hypertension, Seizure Disorder Additional Past Medical History / Comment(s): Last seizure 04/2017, chronic pancreatitis, kidney stones. recurring hiatal hernia, migraines, heart murmur, diverticulitis, hx of fatty liver, chronic RUQ pain, pain clinic. Osteopenia. 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 Cervical cancer history in 1988. History of Any Multi-Drug Resistant Organisms: None Reported Past Surgical History: Appendectomy, Bladder Surgery, Bowel Resection, Cholecystectomy, Hysterectomy, Orthopedic Surgery Additional Past Surgical History / Comment(s): Surgery on right salivary gland, right elbow nerve surgery, EGD, colonoscopy, renee fundoplasty, [facility] 1988, bilateral oophorectomy 1989, bladder sling procedure. exploratory laparscopies, pain clinic procedures. Past Anesthesia/Blood Transfusion Reactions: Previous Problems w/ Anesthesia, Postoperative Nausea & Vomiting (PONV) Additional Past Anesthesia/Blood Transfusion Reaction / Comment(s): Takes long time to awaken. Past Psychological History: Anxiety, Panic Disorder Additional Psychological History / Comment(s): . Smoking Status: Former smoker Past Alcohol Use History: None Reported Additional Past Alcohol Use History / Comment(s): Smoked 20 years, mostly 1 PPD. Quit 1998. Past Drug Use History: None Reported Additional History: She quit smoking in 1999. She has been since 1995 and does not work outside the home. - Past Family History Mother Sister(s) Family Medical History: Cancer Additional Family Medical History / Comment(s): COLON CANCER. GRANDFATHER ALSO HAD COLON CANCER Mother Family Medical History: Cancer Additional Family Medical History / Comment(s): Colon cancer Father Family Medical History: Hypertension Brother(s) Family Medical History: No Reported History Additional Family Medical History / Comment(s): Diverticulitis Sister(s) Family Medical History: Cancer Additional Family Medical History / Comment(s): Head and neck cancer, brain aneurysm Daughter(s) Family Medical History: No Reported History Son(s) Family Medical History: No Reported History Medications and Allergies Home Medications Medication Instructions Recorded Confirmed Type Brivaracetam [Briviact] 100 mg PO BID 08/12/16 01/07/18 History Cyanocobalamin [Vitamin B-12] 500 mcg PO DAILY 08/05/17 01/07/18 History Pyridoxine [Vitamin B-6] 50 mg PO DAILY 08/05/17 01/07/18 History Desvenlafaxine Succinate [Pristiq] 25 mg PO HS 08/09/17 01/07/18 History Atorvastatin [Lipitor] 20 mg PO DAILY #30 tab 08/11/17 01/07/18 Rx Budesonide-Formot 160-4.5 Mcg 2 puff INHALATION RT-BID 09/17/17 01/07/18 History [Symbicort 160-4.5 Mcg Inhaler] Metoprolol Tartrate 12.5 mg PO BID 09/17/17 01/07/18 History Montelukast [Singulair] 10 mg PO HS 09/17/17 01/07/18 History Nitroglycerin Sl Tabs [Nitrostat] 0.4 mg SUBLINGUAL Q5M PRN #25 tab 09/24/17 01/07/18 Rx Riboflavin [Vitamin B-2] 200 mg PO DAILY 09/24/17 01/07/18 History Albuterol Inhaler [Ventolin Hfa 1 - 2 puff INHALATION RT-Q6H PRN 10/22/17 01/07/18 History Inhaler] Lidocaine [Lidocaine 5% Rectal 1 applic TOPICAL QID PRN 10/22/17 01/07/18 History Cream] Ondansetron [Zofran] 4 mg PO DAILY PRN 12/03/17 01/07/18 History Pantoprazole [Protonix] 40 mg PO DAILY 12/03/17 01/07/18 History Omeprazole [PriLOSEC] 20 mg PO 1200 12/29/17 01/07/18 History Doxycycline [Vibramycin] 100 mg PO Q12HR 7 Days 01/03/18 01/07/18 Rx Ipratropium-Albuterol Nebulize 3 ml INHALATION RT-Q4H 01/04/18 01/07/18 History [Duoneb 0.5 mg-3 mg/3 ml Soln] predniSONE 10 mg PO DIRECTED #30 tab 01/06/18 01/07/18 Rx Allergies Allergy/AdvReac Type Severity Reaction Status Date / Time ciprofloxacin [From Cipro] Allergy Rash/Hives Verified 08/10/18 14:26 ciprofloxacin HCl Allergy Rash/Hives Verified 08/10/18 14:26 [From Cipro] clarithromycin [From Biaxin] Allergy Rash/Hives Verified 08/10/18 14:26 dicyclomine [From Bentyl] Allergy Confusion Verified 08/10/18 14:26 hydrocodone bitartrate Allergy Rash/Hives Verified 08/10/18 14:26 [From Vicodin] hydromorphone HCl Allergy Itching Verified 08/10/18 14:26 [From Dilaudid] levofloxacin [From Levaquin] Allergy Rash/Hives Verified 08/10/18 14:26 lorazepam [From Ativan] Allergy seizures Verified 08/10/18 14:26 meloxicam [From Mobic] Allergy Rash/Hives Verified 08/10/18 14:26 oxycodone Allergy Rash/Hives Verified 08/10/18 14:26 Penicillins Allergy Swelling Verified 08/10/18 14:26 IN THROAT promethazine HCl Allergy seizures Verified 08/10/18 14:26 [From Phenergan] propoxyphene napsylate Allergy Rash/Hives Verified 08/10/18 14:26 [From Darvocet-N] tramadol HCl [From Ultram] Allergy seizures Verified 08/10/18 14:26 ipratropium [From Atrovent] AdvReac pain Verified 08/10/18 14:26 Exam Vital Signs Temp Pulse Resp BP Pulse Ox 08/10/18 13:13 96.8 F L 104 H 16 134/66 96 Intake and Output 08/09/18 08/10/18 08/10/18 22:59 06:59 14:59 Other: Weight 65.771 kg Height 5'2", weight 145 pounds, BMI 26.5. This is a well-developed well-nourished white female who is alert and oriented times 3 in no acute distress. HEENT: Within normal limits. NECK: Supple without mass or thyromegaly. CHEST AND LUNGS: Clear to auscultation. HEART: Regular rate and rhythm. BREASTS: Are without mass or discharge. AXILLARY EXAM: Negative for adenopathy. BACK: Negative for CVA tenderness. ABDOMEN: Soft, nontender, without palpable masses. PELVIC EXAM: External genitalia appears normal with mild atrophy. Vagina appears normal mild to moderate atrophy. There is a benign appearing mucosal flap measuring approximately 6 mm in the area of her urethral sling which seems consistent with a mucosal change following her sling procedure. There is no evidence of prolapse. Bimanual examination is negative for mass or tenderness. RECTAL EXAM: Rectovaginal exam is negative for mass or tenderness and is negative for occult blood. EXTREMITIES: Nontender. IMPRESSION: 1. 63-year-old menopausal female status post [facility] for cervical cancer in 1988. No evidence of recurrence. 2. History of osteopenia per the patient. PLAN: 1. Pap smear of the vaginal cuff was obtained because of her history of cervical cancer. We will continue to do this yearly. 2. Self breast awareness was discussed with the patient. 3. Bilateral diagnostic mammogram was done on 03/11/2018 and it was recommended that she resume screening mammograms in one year. The patient was notified of this and she will do this in one year. 4. Osteoporosis prevention was discussed. I have stressed the importance of adequate calcium, vitamin D and regular exercise. Recommended amounts of calcium and vitamin D were also discussed. I have recommended bone density testing since it's been several years since she has had this done. She would like to do this next year with her annual well woman exam. 5. She was advised to return in one year for her annual well woman exam.
== END ==
LOC: WWCWWP 12:51
PROVIDERS: ATTEND Obstetrics & Gynecology
DX: Z53.9 Procedure and treatment not carried out, unspecified reason (principal)

== ENCOUNTER → 2018-08-23 | Outpatient (CLI) | payer OTHER ==
[2018-08-23 17:31] LABS: Anion Gap 8.2 mmol/L (4.00-12.00); Carbon Dioxide 28.8 mmol/L (21.6-31.8); Potassium 3.8 mmol/L (3.5-5.5)
== END | disposition home or self-care (01) ==
LOC: LABWHC1 10:48
PROVIDERS: ATTEND Internal Medicine
DX: E78.2 Mixed hyperlipidemia (principal); I25.10 Atherosclerotic heart disease of native coronary artery without angina pectoris; R94.31 Abnormal electrocardiogram [ECG] [EKG]; R07.2 Precordial pain; R56.9 Unspecified convulsions
CPT/HCPCS: 36415; 80051; 82565; 84520

== ENCOUNTER → 2018-09-13 | Outpatient (CLI) | payer OTHER ==
[2018-09-13 14:40] LABS: Basophils # (A) 0.1 k/uL (0-0.2); Basophils % (A) 1 %; Eosinophils # (A) 0.4 k/uL (0-0.7); Eosinophils % (A) 4 %; HCT 42.6 % (34.0-46.0); HGB 14.7 gm/dL (11.4-16.0); Lymphocytes % (A) 21 %; MCH 32.6 pg (25.0-35.0); MCHC 34.4 g/dL (31.0-37.0); MCV 94.9 fL (80.0-100.0); Mean Platelet Volume 6.8; Monocytes # (A) 0.5 k/uL (0-1.0); Monocytes % (A) 5 %; Neutrophils # (A) 6.3 k/uL (1.3-7.7); Neutrophils % (A) 67 %; Platelet Count 288 k/uL (150-450); RBC 4.49 m/uL (3.80-5.40); RDW 12.7 % (11.5-15.5); WBC 9.4 k/uL (3.8-10.6)
[2018-09-13 14:59] LABS: Appearance,Urine Clear (Clear); Bilirubin,Urine Negative (Negative); Blood,Urine Negative (Negative); Color,Urine Yellow; Glucose,Urine (UA) Negative (Negative); Ketones,Urine Negative (Negative); Leukocyte Esterase,Urine Negative (Negative); Nitrite,Urine Negative (Negative); Protein,Urine Negative (Negative); Specific Gravity,Urine 1.023 (1.001-1.035); Urobilinogen,Urine <2.0 mg/dL (<2.0)
[2018-09-13 19:48] LABS: LDL Cholesterol,Calculated 55.4 mg/dL (0.0-131.0); VLDL Calculation 24.6 mg/dL (5.00-40.00)
== END | disposition home or self-care (01) ==
LOC: LABWHC1 14:07
PROVIDERS: ATTEND Family Medicine
DX: Z00.01 Encounter for general adult medical examination with abnormal findings (principal)
CPT/HCPCS: 36415; 80061; 81003; 84443; 84450; 84460; 85025

== ENCOUNTER → 2018-09-20 | Outpatient (CLI) | payer OTHER ==
[2018-09-20 15:15] LABS: Basophils # (A) 0.1 k/uL (0-0.2); Basophils % (A) 1 %; Eosinophils # (A) 0.2 k/uL (0-0.7); Eosinophils % (A) 2 %; HCT 47.4 % (34.0-46.0); HGB 15.6 gm/dL (11.4-16.0); Lymphocytes # (A) 2.3 k/uL (1.0-4.8); Lymphocytes % (A) 23 %; MCH 31.4 pg (25.0-35.0); MCV 95.2 fL (80.0-100.0); Mean Platelet Volume 6.7; Monocytes # (A) 0.6 k/uL (0-1.0); Monocytes % (A) 6 %; Neutrophils # (A) 6.9 k/uL (1.3-7.7); Neutrophils % (A) 67 %; Platelet Count 296 k/uL (150-450); RBC 4.98 m/uL (3.80-5.40); RDW 12.8 % (11.5-15.5); WBC 10.3 k/uL (3.8-10.6)
[2018-09-20 19:19] LABS: Albumin 4.7 g/dL (3.80-4.90); Albumin/Globulin Ratio 3.36 (1.60-3.17); Anion Gap 8.5 mmol/L (4.00-12.00); Calcium 9.6 mg/dL (8.7-10.3); Carbon Dioxide 30.5 mmol/L (21.6-31.8); Globulin 1.4 g/dL (1.6-3.3); Total Bilirubin 0.4 mg/dL (0.2-1.2); Total Protein 6.1 g/dL (6.2-8.2)
== END ==
LOC: LABWHC1 14:36
PROVIDERS: ATTEND Family Medicine
DX: R53.83 Other fatigue (principal)
CPT/HCPCS: 36415; 80053; 84443; 85025

== ENCOUNTER 2018-10-09 15:02 | Emergency (ER) | payer OTHER ==
[2018-10-09] MEDS ORDERED: SODIUM CHLORIDE 0.9% 1,000 ML IV STA ×2 (15:16)
[2018-10-09] MEDS ORDERED: IPRATROPIUM-ALBUTEROL 3 ML NEB INHALATION STA (15:16)
[2018-10-09 15:28] VITALS: TEMP 98.3
--- NOTE | 2018-10-09 16:12 | ED ---
SOB HPI - General Chief Complaint: Shortness of Breath Stated Complaint: SOB Time Seen by Provider: 10/09/18 15:14 Source: patient, RN notes reviewed, old records reviewed Mode of arrival: ambulatory Limitations: no limitations - History of Present Illness Initial Comments: This is a 63-year-old female the ER for evaluation. Patient does say for evalua tion shortness of breath. History of shortness of breath. History of cough and congestion. Patient has history of COPD, no chest pain. No recent travel history no sick contacts. No fevers. Patient has a few days of shortness of breath is slowly improving MD Complaint: shortness of breath, cough -: days(s) Severity: mild Severity scale (1-10): 2 Quality: aching Consistency: constant Improves With: nothing Worsens With: nothing Known History Of: COPD, asthma Context: recent URI Associated Symptoms: fever, cough Treatments Prior to Arrival: none - Related Data Home Medications Medication Instructions Recorded Confirmed Brivaracetam [Briviact] 100 mg PO BID 08/12/16 10/09/18 Montelukast [Singulair] 10 mg PO HS 09/17/17 10/09/18 Pantoprazole [Protonix] 40 mg PO DAILY 12/03/17 10/09/18 Ipratropium-Albuterol Nebulize 3 ml INHALATION RT-Q4H 01/04/18 10/09/18 [Duoneb 0.5 mg-3 mg/3 ml Soln] Albuterol Inhaler [Ventolin Hfa 1 - 2 puff INHALATION RT-Q6H PRN 08/10/18 10/09/18 Inhaler] Aspirin 81 mg PO DAILY 08/10/18 10/09/18 Cyanocobalamin (Vitamin B-12) 1,000 mcg PO DAILY 08/10/18 10/09/18 [Vitamin B-12] Desvenlafaxine Succinate [Pristiq 25 mg PO DAILY 08/10/18 10/09/18 ER] Fluticasone Nasal [place] [Flonase 1 spray EA NOSTRIL DAILY 08/10/18 10/09/18 Nasal [place]] Fluticasone/Salmeterol 1 puff INHALATION RT-BID 08/10/18 10/09/18 [Fluticasone-Salmeterol 113-14] Hydrochlorothiazide 25 mg PO DAILY 08/10/18 10/09/18 Potassium 99 mg PO DAILY 08/10/18 10/09/18 Spironolactone 25 mg PO DAILY 08/10/18 10/09/18 Previous Rx's Medication Instructions Recorded Atorvastatin [Lipitor] 20 mg PO DAILY #30 tab 08/11/17 Nitroglycerin Sl Tabs [Nitrostat] 0.4 mg SUBLINGUAL Q5M PRN #25 tab 09/24/17 Azithromycin [Zithromax] 500 mg PO DAILY #5 tab 10/09/18 predniSONE 50 mg PO DAILY #5 tab 10/09/18 Allergies Allergy/AdvReac Type Severity Reaction Status Date / Time ciprofloxacin [From Cipro] Allergy Rash/Hives Verified 10/09/18 16:13 ciprofloxacin HCl Allergy Rash/Hives Verified 10/09/18 16:13 [From Cipro] clarithromycin [From Biaxin] Allergy Rash/Hives Verified 10/09/18 16:13 dicyclomine [From Bentyl] Allergy Confusion Verified 10/09/18 16:13 hydrocodone bitartrate Allergy Rash/Hives Verified 10/09/18 16:13 [From Vicodin] hydromorphone HCl Allergy Itching Verified 10/09/18 16:13 [From Dilaudid] levofloxacin [From Levaquin] Allergy Rash/Hives Verified 10/09/18 16:13 meloxicam [From Mobic] Allergy Rash/Hives Verified 10/09/18 16:13 oxycodone Allergy Rash/Hives Verified 10/09/18 16:13 Penicillins Allergy Swelling Verified 10/09/18 16:13 IN THROAT propoxyphene napsylate Allergy Rash/Hives Verified 10/09/18 16:13 [From Darvocet-N] ipratropium [From Atrovent] AdvReac Chest Pain Verified 10/09/18 16:13 lorazepam [From Ativan] AdvReac seizures Verified 10/09/18 16:13 promethazine HCl AdvReac seizures Verified 10/09/18 16:13 [From Phenergan] tramadol HCl [From Ultram] AdvReac seizures Verified 10/09/18 16:13 Review of Systems ROS Statement: Those systems with pertinent positive or pertinent negative responses have been documented in the HPI. ROS Other: All systems not noted in ROS Statement are negative. Past Medical History Past Medical History: Asthma, Coronary Artery Disease (CAD), Cancer, COPD, Hyperlipidemia, Hypertension, Seizure Disorder Additional Past Medical History / Comment(s): Last seizure 04/2017, chronic pancreatitis, kidney stones. recurring hiatal hernia, migraines, heart murmur, diverticulitis, hx of fatty liver, chronic RUQ pain, pain clinic. Osteopenia. 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 Cervical cancer history in 1988. History of Any Multi-Drug Resistant Organisms: None Reported Past Surgical History: Appendectomy, Bladder Surgery, Bowel Resection, Cholecystectomy, Heart Catheterization, Hysterectomy, Orthopedic Surgery Additional Past Surgical History / Comment(s): Surgery on right salivary gland, right elbow nerve surgery, EGD, colonoscopy, renee fundoplasty, [facility]N 1988, bilateral oophorectomy 1989, bladder sling procedure. exploratory laparscopies, pain clinic procedures. Past Anesthesia/Blood Transfusion Reactions: Previous Problems w/ Anesthesia, Postoperative Nausea & Vomiting (PONV) Additional Past Anesthesia/Blood Transfusion Reaction / Comment(s): Takes long time to awaken. Past Psychological History: Anxiety, Panic Disorder Smoking Status: Former smoker Past Alcohol Use History: None Reported Past Drug Use History: None Reported - Past Family History Mother Sister(s) Family Medical History: Cancer Additional Family Medical History / Comment(s): COLON CANCER. GRANDFATHER ALSO HAD COLON CANCER Mother Family Medical History: Cancer Additional Family Medical History / Comment(s): Colon cancer Father Family Medical History: Hypertension Brother(s) Family Medical History: No Reported History Additional Family Medical History / Comment(s): Diverticulitis Sister(s) Family Medical History: Cancer Additional Family Medical History / Comment(s): Head and neck cancer, brain aneurysm Daughter(s) Family Medical History: No Reported History Son(s) Family Medical History: No Reported History General Exam Limitations: no limitations General appearance: alert, in no apparent distress Head exam: Present: atraumatic, normocephalic, normal inspection Eye exam: Present: normal appearance, PERRL, EOMI. Absent: scleral icterus, conjunctival injection, periorbital swelling ENT exam: Present: normal exam, mucous membranes moist Neck exam: Present: normal inspection. Absent: tenderness, meningismus, lymphadenopathy Respiratory exam: Present: wheezes, accessory muscle use, decreased breath sounds, prolonged expiratory. Absent: respiratory distress, rales, rhonchi, stridor Cardiovascular Exam: Present: normal rhythm, tachycardia, normal heart sounds. Absent: systolic murmur, diastolic murmur, rubs, gallop, clicks GI/Abdominal exam: Present: soft, normal bowel sounds. Absent: distended, tenderness, guarding, rebound, rigid Extremities exam: Present: normal inspection, full ROM, normal capillary refill. Absent: tenderness, pedal edema, joint swelling, calf tenderness Back exam: Present: normal inspection Neurological exam: Present: alert, oriented X3, CN II-XII intact Psychiatric exam: Present: normal affect, normal mood Skin exam: Present: warm, dry, intact, normal color. Absent: rash Course Vital Signs 10/09/18 10/09/18 10/09/18 15:19 16:07 16:22 Temperature 98.3 F Pulse Rate 110 H 90 104 H Respiratory 22 20 14 Rate Blood Pressure 140/86 O2 Sat by Pulse 95 Oximetry - Reevaluation(s) Reevaluation #1: 10/09/18 18:13 Medical record is reviewed Reevaluation #2: 10/09/18 18:13 Patient has no acute distress, breathing is improved able to ambulate without difficulty. Medical Decision Making - Medical Decision Making 63 female the ER for evaluation. Patient symptoms are improved. Patient feelin g better would like to be discharged. No acute distress. - Lab Data Result diagrams: 10/09/18 15:41 10/09/18 15:41 Lab Results 10/09/18 10/09/18 10/09/18 Range/Units 15:41 15:41 15:41 WBC 11.1 H (3.8-10.6) k/uL RBC 4.69 (3.80-5.40) m/uL Hgb 14.8 (11.4-16.0) gm/dL Hct 43.2 (34.0-46.0) % MCV 92.1 (80.0-100.0) fL MCH 31.5 (25.0-35.0) pg MCHC 34.2 (31.0-37.0) g/dL RDW 14.6 (11.5-15.5) % Plt Count 330 (150-450) k/uL Neutrophils % 72 % Lymphocytes % 18 % Monocytes % 5 % Eosinophils % 3 % Basophils % 1 % Neutrophils # 8.0 H (1.3-7.7) k/uL Lymphocytes # 2.0 (1.0-4.8) k/uL Monocytes # 0.5 (0-1.0) k/uL Eosinophils # 0.4 (0-0.7) k/uL Basophils # 0.1 (0-0.2) k/uL PT 9.7 (9.0-12.0) sec INR 0.9 (<1.2) APTT 22.1 (22.0-30.0) sec D-Dimer 0.26 (<0.60) mg/L FEU Sodium 139 (137-145) mmol/L Potassium 3.3 L (3.5-5.1) mmol/L Chloride 102 (98-107) mmol/L Carbon Dioxide 26 (22-30) mmol/L Anion Gap 11 mmol/L BUN 14 (7-17) mg/dL Creatinine 0.73 (0.52-1.04) mg/dL Est GFR (CKD-EPI)AfAm >90 (>60 ml/min/1.73 sqM) Est GFR (CKD-EPI)NonAf 88 (>60 ml/min/1.73 sqM) Glucose 99 (74-99) mg/dL Calcium 9.8 (8.4-10.2) mg/dL Magnesium 2.3 (1.6-2.3) mg/dL Total Bilirubin 0.4 (0.2-1.3) mg/dL AST 30 (14-36) U/L ALT 30 (9-52) U/L Alkaline Phosphatase 100 (38-126) U/L Troponin I (0.000-0.034) ng/mL NT-Pro-B Natriuret Pep pg/mL Total Protein 6.6 (6.3-8.2) g/dL Albumin 4.5 (3.5-5.0) g/dL 10/09/18 10/09/18 Range/Units 15:41 15:41 WBC (3.8-10.6) k/uL RBC (3.80-5.40) m/uL Hgb (11.4-16.0) gm/dL Hct (34.0-46.0) % MCV (80.0-100.0) fL MCH (25.0-35.0) pg MCHC (31.0-37.0) g/dL RDW (11.5-15.5) % Plt Count (150-450) k/uL Neutrophils % % Lymphocytes % % Monocytes % % Eosinophils % % Basophils % % Neutrophils # (1.3-7.7) k/uL Lymphocytes # (1.0-4.8) k/uL Monocytes # (0-1.0) k/uL Eosinophils # (0-0.7) k/uL Basophils # (0-0.2) k/uL PT (9.0-12.0) sec INR (<1.2) APTT (22.0-30.0) sec D-Dimer (<0.60) mg/L FEU Sodium (137-145) mmol/L Potassium (3.5-5.1) mmol/L Chloride (98-107) mmol/L Carbon Dioxide (22-30) mmol/L Anion Gap mmol/L BUN (7-17) mg/dL Creatinine (0.52-1.04) mg/dL Est GFR (CKD-EPI)AfAm (>60 ml/min/1.73 sqM) Est GFR (CKD-EPI)NonAf (>60 ml/min/1.73 sqM) Glucose (74-99) mg/dL Calcium (8.4-10.2) mg/dL Magnesium (1.6-2.3) mg/dL Total Bilirubin (0.2-1.3) mg/dL AST (14-36) U/L ALT (9-52) U/L Alkaline Phosphatase (38-126) U/L Troponin I <0.012 (0.000-0.034) ng/mL NT-Pro-B Natriuret Pep 88 pg/mL Total Protein (6.3-8.2) g/dL Albumin (3.5-5.0) g/dL - EKG Data -: EKG Interpreted by Me (EKG shows sinus rhythm rate of 87, SD 1:30, QRS 80, QTC 480) - Radiology Data Radiology results: report reviewed (S x-rays negative for acute disease), image reviewed Disposition Clinical Impression: Acute bronchitis Disposition: HOME SELF-CARE Condition: Good Instructions (If sedation given, give patient instructions): Acute Bronchitis (ED) Prescriptions: predniSONE 50 mg PO DAILY #5 tab Azithromycin [Zithromax] 500 mg PO DAILY #5 tab Is patient prescribed a controlled substance at d/c from ED?: No Referrals: Alex Gomez DO [Primary Care Provider] - 1-2 days
[2018-10-09 16:24] LABS: Basophils # (A) 0.1 k/uL (0-0.2); Basophils % (A) 1 %; Eosinophils # (A) 0.4 k/uL (0-0.7); Eosinophils % (A) 3 %; HCT 43.2 % (34.0-46.0); HGB 14.8 gm/dL (11.4-16.0); Lymphocytes % (A) 18 %; MCH 31.5 pg (25.0-35.0); MCHC 34.2 g/dL (31.0-37.0); MCV 92.1 fL (80.0-100.0); Mean Platelet Volume 7.5; Monocytes # (A) 0.5 k/uL (0-1.0); Monocytes % (A) 5 %; Neutrophils % (A) 72 %; Platelet Count 330 k/uL (150-450); RBC 4.69 m/uL (3.80-5.40); RDW 14.6 % (11.5-15.5); WBC 11.1 k/uL (3.8-10.6)
[2018-10-09 16:38] LABS: D-Dimer 0.26 mg/L FEU (<0.60); INR 0.9 (<1.2); Partial Thromboplastin Time 22.1 sec (22.0-30.0); Prothrombin Time 9.7 sec (9.0-12.0)
[2018-10-09 16:40] LABS: ALT 30 U/L (9-52); AST 30 U/L (14-36); Albumin 4.5 g/dL (3.5-5.0); Alkaline Phosphatase 100 U/L (38-126); Anion Gap 11 mmol/L; Blood Urea Nitrogen 14 mg/dL (7-17); Calcium 9.8 mg/dL (8.4-10.2); Carbon Dioxide 26 mmol/L (22-30); Chloride 102 mmol/L (98-107); Glucose 99 mg/dL (74-99); Magnesium 2.3 mg/dL (1.6-2.3); Potassium 3.3 mmol/L (3.5-5.1); Sodium 139 mmol/L (137-145); Total Bilirubin 0.4 mg/dL (0.2-1.3); Total Protein 6.6 g/dL (6.3-8.2)
--- NOTE | 2018-10-09 16:45 | XR ---
EXAMINATION TYPE: XR chest 2V DATE OF EXAM: 10/09/2018 COMPARISON: Chest x-ray June 14, 2018 HISTORY: Shortness of breath. TECHNIQUE: Frontal and lateral views of the chest are obtained. FINDINGS: Overlying EKG leads are redemonstrated. There is chronic parenchymal change without suspici ous focal air space opacity, pleural effusion, or pneumothorax seen. The cardiac silhouette size is within normal limits. The osseous structures are intact. Cholecystectomy clips are redemonstrated. IMPRESSION: No acute cardiopulmonary process. No significant change from prior.
[2018-10-09] MEDS ORDERED: DEXAMETHASONE SOD PHOSPHATE 10 MG/ML 1 ML VIAL IV STA (18:10)
[2018-10-09 18:21] VITALS: BP 127/74; PULSE 105; RESP 17
== END 2018-10-09 18:20 | disposition home or self-care (01) ==
LOC: EC 15:02
DX: J20.9 Acute bronchitis, unspecified (principal); J44.0 Chronic obstructive pulmonary disease with (acute) lower respiratory infection; I25.10 Atherosclerotic heart disease of native coronary artery without angina pectoris; G40.909 Epilepsy, unspecified, not intractable, without status epilepticus; I10 Essential (primary) hypertension; Z79.82 Long term (current) use of aspirin; Z79.51 Long term (current) use of inhaled steroids; Z79.899 Other long term (current) drug therapy; Z88.1 Allergy status to other antibiotic agents; Z88.5 Allergy status to narcotic agent; Z88.6 Allergy status to analgesic agent; Z88.8 Allergy status to other drugs, medicaments and biological substances; Z88.0 Allergy status to penicillin; Z85.41 Personal history of malignant neoplasm of cervix uteri; Z87.891 Personal history of nicotine dependence; Z95.5 Presence of coronary angioplasty implant and graft
CPT/HCPCS: 36415; 94640; 93005; 85379; 83880; 80053; 83735; 84484; 85025; 85610; 85730; 71046; 99285; 96374; 96361; J1100

== ENCOUNTER → 2018-11-23 | Outpatient (CLI) | payer OTHER | END | disposition home or self-care (01) | LOC: LABWHC1 16:22 | PROVIDERS: ATTEND Surgery Plastic and Reconstructive Surgery | DX: Z01.812 Encounter for preprocedural laboratory examination (principal) | CPT/HCPCS: 36415; 86850; 86900; 86901 ==

== ENCOUNTER 2018-11-26 11:51 | Day surgery (SDC) | payer OTHER ==
--- NOTE | 2018-11-26 07:38 | P.GSHP ---
History of Present Illness H&P Date: 11/26/18 CHIEF COMPLAINT: History of intra-abdominal adhesions HISTORY OF PRESENT ILLNESS: The patient is a 63-year-old female who presents with history of intra-abdominal adhesions from multiple prior surgeries including increasing abdominal pain. She now presents for diagnostic laparoscopy including lysis of adhesions. PAST MEDICAL HISTORY: Please see list. PAST SURGICAL HISTORY: Please see list. MEDICATIONS: Please see list. ALLERGIES: Please see list. SOCIAL HISTORY: No illicit drug use FAMILY HISTORY: No reports of Crohn disease or ulcerative colitis. REVIEW OF ORGAN SYSTEMS: CONSTITUTIONAL: No reports of fevers or chills. GI: Denies any blood in stools or constipation. PHYSICAL EXAM: VITAL SIGNS: Stable GENERAL: Well-developed pleasant and in no acute distress. HEENT: No scleral icterus. Extraocular movements grossly intact. Moist buccal mucosa. NECK: Supple without lymphadenopathy. CHEST: Unlabored respirations. Equal bilateral excursions. CARDIOVASCULAR: Regular rate and rhythm. Distal 2+ pulses. ABDOMEN: Soft, diffuse abdominal tenderness. No peritonitis. MUSCULOSKELETAL: No clubbing, cyanosis, or edema. ASSESSMENT: 1. Diffuse abdominal pain. 2. History of multiple abdominal surgeries. 3. Intra-abdominal adhesions. PLAN: 1. Robotic lysis of adhesions were described in detail including risk of injury to the intestine, need for further surgery, and open technique. 2. DVT prophylaxis. 3. Antibiotic prophylaxis. Past Medical History Past Medical History: Asthma, Coronary Artery Disease (CAD), Cancer, COPD, Hyperlipidemia, Hypertension, Seizure Disorder Additional Past Medical History / Comment(s): Last seizure APRIL 28 OR JUN 2018. Chronic pancreatitis. Kidney stones. Recurring hiatal hernia. Migraines. Heart murmur. Diverticulitis. Fatty liver. Pain clinic. Osteopenia. Cervical cancer history in 1988. History of Any Multi-Drug Resistant Organisms: None Reported Past Surgical History: Appendectomy, Bladder Surgery, Bowel Resection, Cholecystectomy, Heart Catheterization, Hysterectomy, Orthopedic Surgery Additional Past Surgical History / Comment(s): Surgery on right salivary gland. Right elbow nerve surgery. EGD. Colonoscopy. Justin fundoplasty. EMELYN 1988, bilateral oophorectomy 1989. Bladder sling procedure. Exploratory laparscopies. Pain clinic procedures. Past Anesthesia/Blood Transfusion Reactions: Previous Problems w/ Anesthesia, Postoperative Nausea & Vomiting (PONV) Additional Past Anesthesia/Blood Transfusion Reaction / Comment(s): Takes long time to awaken. Past Psychological History: Anxiety, Panic Disorder Smoking Status: Former smoker Past Alcohol Use History: None Reported Additional Past Alcohol Use History / Comment(s): Smoked 20 years, mostly 1 PPD. Quit 1998. Past Drug Use History: None Reported - Past Family History Mother Sister(s) Family Medical History: Cancer Additional Family Medical History / Comment(s): COLON CANCER. GRANDFATHER ALSO HAD COLON CANCER Mother Family Medical History: Cancer Additional Family Medical History / Comment(s): Colon cancer Father Family Medical History: Hypertension Brother(s) Family Medical History: No Reported History Additional Family Medical History / Comment(s): Diverticulitis Sister(s) Family Medical History: Cancer Additional Family Medical History / Comment(s): Head and neck cancer, brain aneurysm Daughter(s) Family Medical History: No Reported History Son(s) Family Medical History: No Reported History Medications and Allergies Home Medications Medication Instructions Recorded Confirmed Type Brivaracetam [Briviact] 100 mg PO BID 08/12/16 11/22/18 History Montelukast [Singulair] 10 mg PO HS 09/17/17 11/22/18 History Nitroglycerin Sl Tabs [Nitrostat] 0.4 mg SUBLINGUAL Q5M PRN #25 tab 09/24/17 11/22/18 Rx Pantoprazole [Protonix] 40 mg PO QAM 12/03/17 11/22/18 History Ipratropium-Albuterol Nebulize 3 ml INHALATION RT-Q4H PRN 01/04/18 11/22/18 History [Duoneb 0.5 mg-3 mg/3 ml Soln] Albuterol Inhaler [Ventolin Hfa 1 - 2 puff INHALATION RT-Q6H PRN 08/10/18 11/22/18 History Inhaler] Aspirin 81 mg PO DAILY 08/10/18 11/22/18 History Cyanocobalamin (Vitamin B-12) 1,000 mcg PO DAILY 08/10/18 11/22/18 History [Vitamin B-12] Desvenlafaxine Succinate [Pristiq 25 mg PO DAILY 08/10/18 11/22/18 History ER] Fluticasone Nasal [place] [Flonase 1 spray EA NOSTRIL DAILY 08/10/18 11/22/18 His tory Nasal [place]] Fluticasone/Salmeterol 1 puff INHALATION RT-BID 08/10/18 11/22/18 History [Fluticasone-Salmeterol 113-14] Hydrochlorothiazide 25 mg PO QAM 08/10/18 11/22/18 History Potassium 595 mg PO DAILY 08/10/18 11/22/18 History Spironolactone 25 mg PO QAM 08/10/18 11/22/18 History Atorvastatin [Lipitor] 20 mg PO QAM 11/22/18 11/22/18 History Allergies Allergy/AdvReac Type Severity Reaction Status Date / Time ciprofloxacin [From Cipro] Allergy Rash/Hives Verified 11/22/18 15:17 ciprofloxacin HCl Allergy Rash/Hives Verified 11/22/18 15:17 [From Cipro] clarithromycin [From Biaxin] Allergy Rash/Hives Verified 11/22/18 15:17 dicyclomine [From Bentyl] Allergy Confusion Verified 11/22/18 15:17 hydrocodone bitartrate Allergy Rash/Hives Verified 11/22/18 15:17 [From Vicodin] hydromorphone HCl Allergy Itching Verified 11/22/18 15:17 [From Dilaudid] levofloxacin [From Levaquin] Allergy Rash/Hives Verified 11/22/18 15:17 meloxicam [From Mobic] Allergy Rash/Hives Verified 11/22/18 15:17 oxycodone Allergy Rash/Hives Verified 11/22/18 15:17 Penicillins Allergy Swelling Verified 11/22/18 15:17 IN THROAT propoxyphene napsylate Allergy Rash/Hives Verified 11/22/18 15:17 [From Darvocet-N] ipratropium [From Atrovent] AdvReac Chest Pain Verified 11/22/18 15:17 lorazepam [From Ativan] AdvReac seizures Verified 11/22/18 15:17 promethazine HCl AdvReac seizures Verified 11/22/18 15:17 [From Phenergan] tramadol HCl [From Ultram] AdvReac seizures Verified 11/22/18 15:17
[~2018-11-26 11:51] MED LIST changes: +CLINDAMYCIN 600 MG in DEXTROSE 5% IN WATER 50 ML IVPB STA; +HYDROmorphone 0.5 MG/0.5 ML SYRINGE IVP PRN; -LIDOCAINE 1% 20 ML VIAL (10MG/ML) FOR IV START INTRADERMA PRN; -MIDAZOLAM 2 MG/2 ML VIAL IV PRN; +Pre Op ABX Message 1 EACH MISC MISCELLANE ONE
[2018-11-26] MEDS ORDERED: LIDOCAINE 1% 20 ML VIAL (10MG/ML) FOR IV START INTRADERMA ONE (13:11)
[2018-11-26] MEDS: ONDANSETRON 4 MG/2 ML VIAL IVP PRN ×2 (13:18→15:26)
[2018-11-26 13:34] LABS: Basophils # (A) 0.1 k/uL (0-0.2); Basophils % (A) 1 %; Eosinophils # (A) 0.2 k/uL (0-0.7); Eosinophils % (A) 2 %; HCT 43.3 % (34.0-46.0); Lymphocytes # (A) 2.2 k/uL (1.0-4.8); Lymphocytes % (A) 22 %; MCH 32.4 pg (25.0-35.0); MCHC 34.7 g/dL (31.0-37.0); MCV 93.2 fL (80.0-100.0); Mean Platelet Volume 6.6; Monocytes # (A) 0.7 k/uL (0-1.0); Monocytes % (A) 7 %; Neutrophils # (A) 6.8 k/uL (1.3-7.7); Neutrophils % (A) 68 %; Platelet Count 344 k/uL (150-450); RBC 4.65 m/uL (3.80-5.40)
[2018-11-26 13:41] LABS: ALT 38 U/L (9-52); AST 29 U/L (14-36); African American GFR (CKD) >90 (>60 ml/min/1.73 sqM); Albumin 4.4 g/dL (3.5-5.0); Alkaline Phosphatase 96 U/L (38-126); Anion Gap 8 mmol/L; Blood Urea Nitrogen 16 mg/dL (7-17); Calcium 9.7 mg/dL (8.4-10.2); Carbon Dioxide 30 mmol/L (22-30); Chloride 102 mmol/L (98-107); Glucose 92 mg/dL (74-99); Potassium 3.4 mmol/L (3.5-5.1); Sodium 140 mmol/L (137-145); Total Bilirubin 0.6 mg/dL (0.2-1.3); Total Protein 6.4 g/dL (6.3-8.2)
[2018-11-26] MEDS ORDERED: HEPARIN SODIUM,PORCINE 5,000 UNIT/ML 1 ML VIAL SQ ONE (13:46)
[2018-11-26] MEDS ORDERED: ePHEDrine SULFATE/0.9% NACL/PF 50 MG/5 ML SYRINGE IV ONE (14:01)
[2018-11-26] MEDS ORDERED: KETOROLAC 30 MG/ML 1 ML VIAL ONE (14:01)
[2018-11-26] MEDS ORDERED: NEOSTIGMINE 1 MG/ML 10 ML VIAL ONE (14:01)
[2018-11-26] MEDS ORDERED: LIDOCAINE 1% INJ 10MG/ML (20 ML MDV) ONE (14:01)
[2018-11-26] MEDS ORDERED: MIDAZOLAM 2 MG/2 ML VIAL ONE (14:01)
[2018-11-26] MEDS ORDERED: PROPOFOL 10 MG/ML 20 ML VIAL IV ONE (14:01)
[2018-11-26] MEDS ORDERED: GLYCOPYRROLATE 0.2 MG/ML 2 ML VIAL ONE (14:01)
[2018-11-26] MEDS ORDERED: fentaNYL (PF) 50 MCG/ML 2 ML AMP ONE (14:01)
[2018-11-26] MEDS ORDERED: ROCURONIUM BROMIDE 10 MG/ML 10 ML VIAL IV ONE (14:01)
[2018-11-26] MEDS ORDERED: BUPIVACAINE (PF) 0.25% 30 ML VIAL SQ ONE (14:28)
[2018-11-26 15:23] VITALS: TEMP 100
[2018-11-26 15:37] VITALS: RESP 16
[2018-11-26] MEDS ORDERED: METOCLOPRAMIDE 5 MG/ML 2 ML VIAL IVP ONE (15:39)
--- NOTE | 2018-11-26 15:41 | P.OP ---
Date of Procedure: 11/26/18 Description of Procedure: Date of Procedure: 11/26/18 SURGEON: NORA CAPELLAN MD PREOPERATIVE DIAGNOSES: 1. Bilateral upper abdominal pain 2. Epigastric abdominal pain 3. History of multiple abdominal surgeries 4. History of peritoneal adhesions 5. History of multiple ALLERGIES 6. Chronic obstructive pulmonary disease 7. Ischemic cardiomyopathy 8. Gastroesophageal reflux disease 9. Hyperlipidemia 10. Depressive disorder POSTOPERATIVE DIAGNOSES: 1. Bilateral upper abdominal pain 2. Epigastric abdominal pain 3. History of multiple abdominal surgeries 4. History of peritoneal adhesions 5. History of multiple ALLERGIES 6. Chronic obstructive pulmonary disease 7. Ischemic cardiomyopathy 8. Gastroesophageal reflux disease 9. Hyperlipidemia 10. Depressive disorder OPERATION: 1. Robotic-assisted da Ju Xi laparoscopic extensive lysis of adhesions over 30 minutes Anesthesia: GETA, local Estimated Blood Loss (ml): 5 Pathology: none sent Condition: stable Disposition: same day Operative Findings: 1. Dense adhesions along the epigastrium consistent with patient's location of pain 2. All adhesions lysed including epigastrium, right upper quadrant and left lower quadrant INDICATIONS: The patient is a 63-year-old female who presents with severe epigastric and right upper quadrant abdominal pain. She has history of multiple abdominal surgeries. Robotic assisted laparoscopic approach was described. Benefits and risks of the procedure including but not limited to bleeding, infe ction, injury to the small bowel was described. Informed consent was obtained. DESCRIPTION OF PROCEDURE: Patient was brought to the operating room, placed in supine position. After general induction, the abdomen had been prepped and draped in standard sterile fashion. The robotic da Ju XI system was primed. After a timeout protocol was performed, the patient had been prepped and draped in standard sterile fashion. The robot was docked along the right lateral abdomen. The patient was repositioned in Trendelenburg position of 10 degrees. A 5 mm 0 degrees laparoscopic trocar entry was performed along the left upper quadrant. The abdomen was insufflated to 15 mmHg pressure which she tolerated well. Diagnostic laparoscopy demonstrated severe intra-abdominal adhesions involving the epigastrium and right upper quadrant. The small bowel was unremarkable without evidence of dilation or suggestion of obstruction. No injury to the bowel, viscera or mesentery was identified. Next, three 8 mm robotic ports were placed along the right lateral abdominal wall. Please note that the ports were placed at least 8 cm away from the target anatomy. Instruments were interchanged using only 3 ports for a grasper, vessel sealer, and scissors with cautery. Instruments were interchanged by the assistant sales center manager including Bovie cautery scissors. I had sat at the console. The camera was positioned along the epigastrium. Extensive lysis of adhesions over 30 minutes was performed. Carefully the adhesions were taken down without injury to the small bowel using vessel sealer and cautery on scissors. No involvement of small bowel was found. Hemostasis was excellent and abdomen was dry upon completion. The robot was undocked. All pneumoperitoneum and instruments were evacuated from the abdominal cavity. The incisions were reapproximated using 4-0 Monocryl in an interrupted subcuticular fashion. Please note along the trocar sites, local anesthetic was placed as a field block prior to insertion of all instruments. Liquid glue was applied to the skin. At the end of the procedure needle, sponge, and instrument count had been verified correct by the neurosurgical nurse practitioner. The patient was transferred to postanesthesia care unit in stable condition. Intraoperative images including findings were described to the patients family. Plan - Discharge Summary Discharge Rx Participant: No New Discharge Prescriptions: New Acetaminophen [Tylenol] 325 mg PO Q4H #30 tab Continue Brivaracetam [Briviact] 100 mg PO BID Montelukast [Singulair] 10 mg PO HS Nitroglycerin Sl Tabs [Nitrostat] 0.4 mg SUBLINGUAL Q5M PRN #25 tab PRN Reason: Chest Pain Pantoprazole [Protonix] 40 mg PO QAM Albuterol Inhaler [Ventolin Hfa Inhaler] 1 - 2 puff INHALATION RT-Q6H PRN PRN Reason: Shortness Of Breath Desvenlafaxine Succinate [Pristiq] 25 mg PO HS Fluticasone Nasal [place] [Flonase Nasal [place]] 1 spray EA NOSTRIL DAILY Aspirin 81 mg PO DAILY Spironolactone 25 mg PO QAM Potassium 595 mg PO DAILY Hydrochlorothiazide 25 mg PO QAM Fluticasone/Salmeterol [Fluticasone-Salmeterol 113-14] 1 puff INHALATION RT- BID Cyanocobalamin (Vitamin B-12) [Vitamin B-12] 1,000 mcg PO DAILY Atorvastatin [Lipitor] 20 mg PO QAM No Action Sulfamethox-Tmp 800-160Mg [Bactrim DS 800-160 mg] 2 tab PO Q12HR #40 tab Discharge Medication List Brivaracetam [Briviact] 100 mg PO BID 08/12/16 [History] Montelukast [Singulair] 10 mg PO HS 09/17/17 [History] Nitroglycerin Sl Tabs [Nitrostat] 0.4 mg SUBLINGUAL Q5M PRN #25 tab 09/24/17 [Rx] Pantoprazole [Protonix] 40 mg PO QAM 12/03/17 [History] Albuterol Inhaler [Ventolin Hfa Inhaler] 1 - 2 puff INHALATION RT-Q6H PRN 08/10/18 [History] Aspirin 81 mg PO DAILY 08/10/18 [History] Cyanocobalamin (Vitamin B-12) [Vitamin B-12] 1,000 mcg PO DAILY 08/10/18 [History] Desvenlafaxine Succinate [Pristiq] 25 mg PO HS 08/10/18 [History] Fluticasone Nasal [place] [Flonase Nasal [place]] 1 spray EA NOSTRIL DAILY 08/10/18 [History] Fluticasone/Salmeterol [Fluticasone-Salmeterol 113-14] 1 puff INHALATION RT-BID 08/10/18 [History] Hydrochlorothiazide 25 mg PO QAM 08/10/18 [History] Potassium 595 mg PO DAILY 08/10/18 [History] Spironolactone 25 mg PO QAM 08/10/18 [History] Atorvastatin [Lipitor] 20 mg PO QAM 11/22/18 [History] Acetaminophen [Tylenol] 325 mg PO Q4H #30 tab 11/26/18 [Rx] Sulfamethox-Tmp 800-160Mg [Bactrim DS 800-160 mg] 2 tab PO Q12HR #40 tab 12/05/18 [Rx] Follow up Appointment(s)/Referral(s): Nora Capellan MD [STAFF PHYSICIAN] - 12/07/18 Patient Instructions/Handouts: *Surgery [facility] - (Anesthesia) Discharge Instructions Outpatient Surgery, *[facility] - Scopalamine Patch Instructions, Lysis of Abdominal Adhesions (DC) Activity/Diet/Wound Care/Special Instructions: May shower. No bathtub soaks for 10 days, 12/06/2018. No lifting over 10 pounds until 12/06/2018. Take Tylenol as needed Discharge Disposition: HOME SELF-CARE
[2018-11-26] MEDS ORDERED: LACTATED RINGERS 1,000 ML IV ONE (15:51)
[2018-11-26] MEDS ORDERED: SCOPOLAMINE 1.5MG/72HR PATCH TRANSDERM ONE (16:08)
[2018-11-26 17:08] VITALS: PULSE 99
[2018-11-26 17:26] VITALS: BP 125/72
== END 2018-11-26 17:49 | disposition home or self-care (01) ==
LOC: OR 11:51
PROVIDERS: ATTEND Surgery Plastic and Reconstructive Surgery
DX: K66.0 Peritoneal adhesions (postprocedural) (postinfection) (principal); E87.6 Hypokalemia; F41.1 Generalized anxiety disorder; I49.9 Cardiac arrhythmia, unspecified; G45.4 Transient global amnesia; J44.9 Chronic obstructive pulmonary disease, unspecified; I25.5 Ischemic cardiomyopathy; E78.5 Hyperlipidemia, unspecified; F32.9 Major depressive disorder, single episode, unspecified; G40.909 Epilepsy, unspecified, not intractable, without status epilepticus; I25.10 Atherosclerotic heart disease of native coronary artery without angina pectoris; F41.9 Anxiety disorder, unspecified; K21.9 Gastro-esophageal reflux disease without esophagitis; G43.909 Migraine, unspecified, not intractable, without status migrainosus; Z82.49 Family history of ischemic heart disease and other diseases of the circulatory system; Z80.0 Family history of malignant neoplasm of digestive organs; Z88.1 Allergy status to other antibiotic agents; Z88.5 Allergy status to narcotic agent; Z88.0 Allergy status to penicillin; Z88.8 Allergy status to other drugs, medicaments and biological substances; Z79.82 Long term (current) use of aspirin; Z79.899 Other long term (current) drug therapy
CPT/HCPCS: 86900; 86901; 80053; 85025; 86850; 36415; 49329; J2250; J1644; J2710; J2765; J2405; J2001; J3010; J1885; J2704

== ENCOUNTER 2018-12-04 20:40 | Emergency (ER) | payer OTHER ==
[2018-12-04] MEDS ORDERED: SULFAMETHOX-TMP 800-160MG 1 EACH TAB PO STA (22:21)
--- NOTE | 2018-12-04 22:53 | ED ---
General Adult HPI - General Chief complaint: Skin/Abscess/Foreign Body Stated complaint: Surgical complications Time Seen by Provider: 12/04/18 21:25 Source: patient, RN notes reviewed, old records reviewed Mode of arrival: ambulatory Limitations: no limitations - History of Present Illness Initial comments: 63-year-old female patient past history of laparoscopic surgery to remove adhesions on 11/26 presents to ED with erythema around port sites. Patient has port sites on her right upper quadrant, right lower quadrant and left lower quadrant with mild amount of erythema around them. Patient has mild amount of pain on port site, denies any other symptoms. Denies any systemic symptoms including fevers chills, nausea vomiting or diarrhea. Denies any other complaints at this time. Systemic: Pt denies fatigue, fever/chills, rash. Pt denies weakness, night sweats, weight loss. Neuro: Pt denies headache, visual disturbances, syncope or pre-syncope. HEENT: Pt denies ocular discharge or irritation, otalgia, rhinorrhea, pharyngitis or notable lymphadenopathy. Cardiopulmonary: Pt denies chest pain, SOB, heart palpitations, dyspnea on exertion. Abdominal/GI: Pt denies abdominal pain, n/v/d. : Pt denies dysuria, burning w/ urination, frequency/urgency. Denies new onset urinary or bowel incontinence. MSK: Pt denies myalgia, loss of strength or function in extremities. Neuro: Pt denies new onset weakness, paresthesias. - Related Data Home Medications Medication Instructions Recorded Confirmed Brivaracetam [Briviact] 100 mg PO BID 08/12/16 11/22/18 Montelukast [Singulair] 10 mg PO 09/17/17 11/22/18 Pantoprazole [Protonix] 40 mg PO QAM 12/03/17 11/22/18 Albuterol Inhaler [Ventolin Hfa 1 - 2 puff INHALATION RT-Q6H PRN 08/10/18 11/26/18 Inhaler] Aspirin 81 mg PO DAILY 08/10/18 11/22/18 Cyanocobalamin (Vitamin B-12) 1,000 mcg PO DAILY 08/10/18 11/26/18 [Vitamin B-12] Desvenlafaxine Succinate [Pristiq] 25 mg PO 08/10/18 11/26/18 Fluticasone Nasal [place] [Flonase 1 spray EA NOSTRIL DAILY 08/10/18 11/26/18 Nasal [place]] Fluticasone/Salmeterol 1 puff INHALATION RT-BID 08/10/18 11/26/18 [Fluticasone-Salmeterol 113-14] Hydrochlorothiazide 25 mg PO QAM 08/10/18 11/22/18 Potassium 595 mg PO DAILY 08/10/18 11/22/18 Spironolactone 25 mg PO QAM 08/10/18 11/22/18 Atorvastatin [Lipitor] 20 mg PO QAM 11/22/18 11/26/18 Previous Rx's Medication Instructions Recorded Nitroglycerin Sl Tabs [Nitrostat] 0.4 mg SUBLINGUAL Q5M PRN #25 tab 09/24/17 Acetaminophen [Tylenol] 325 mg PO Q4H #30 tab 11/26/18 Sulfamethox-Tmp 800-160Mg [Bactrim 2 tab PO Q12HR #40 tab 12/05/18 DS 800-160 mg] Allergies Allergy/AdvReac Type Severity Reaction Status Date / Time ciprofloxacin [From Cipro] Allergy Rash/Hives Verified 12/04/18 20:46 ciprofloxacin HCl Allergy Rash/Hives Verified 12/04/18 20:46 [From Cipro] clarithromycin [From Biaxin] Allergy Rash/Hives Verified 12/04/18 20:46 dicyclomine [From Bentyl] Allergy Confusion Verified 12/04/18 20:46 hydrocodone bitartrate Allergy Rash/Hives Verified 12/04/18 20:46 [From Vicodin] hydromorphone HCl Allergy Itching Verified 12/04/18 20:46 [From Dilaudid] levofloxacin [From Levaquin] Allergy Rash/Hives Verified 12/04/18 20:46 meloxicam [From Mobic] Allergy Rash/Hives Verified 12/04/18 20:46 oxycodone Allergy Rash/Hives Verified 12/04/18 20:46 Penicillins Allergy Swelling Verified 12/04/18 20:46 IN THROAT propoxyphene napsylate Allergy Rash/Hives Verified 12/04/18 20:46 [From Darvocet-N] ipratropium [From Atrovent] AdvReac Chest Pain Verified 12/04/18 20:46 lorazepam [From Ativan] AdvReac seizures Verified 12/04/18 20:46 promethazine HCl AdvReac seizures Verified 12/04/18 20:46 [From Phenergan] tramadol HCl [From Ultram] AdvReac seizures Verified 12/04/18 20:46 Review of Systems ROS Statement: Those systems with pertinent positive or pertinent negative responses have been documented in the HPI. ROS Other: All systems not noted in ROS Statement are negative. Past Medical History Past Medical History: Asthma, Coronary Artery Disease (CAD), Cancer, COPD, Hyperlipidemia, Hypertension, Seizure Disorder Additional Past Medical History / Comment(s): Last seizure APRIL 28 OR JUN 2018. Chronic pancreatitis. Kidney stones. Recurring hiatal hernia. Migraines. Heart murmur. Diverticulitis. Fatty liver. Pain clinic. Osteopenia. Cervical cancer history in 1988. History of Any Multi-Drug Resistant Organisms: None Reported Past Surgical History: Appendectomy, Bladder Surgery, Bowel Resection, Cholecystectomy, Heart Catheterization, Hysterectomy, Orthopedic Surgery Additional Past Surgical History / Comment(s): Surgery on right salivary gland. Right elbow nerve surgery. EGD. Colonoscopy. Justin fundoplasty. EMELYN 1988, b ilateral oophorectomy 1989. Bladder sling procedure. Exploratory laparscopies. Pain clinic procedures. laparoscopic adhesions Past Anesthesia/Blood Transfusion Reactions: Previous Problems w/ Anesthesia, Postoperative Nausea & Vomiting (PONV) Additional Past Anesthesia/Blood Transfusion Reaction / Comment(s): Takes long time to awaken. Past Psychological History: Anxiety, Panic Disorder Smoking Status: Former smoker Past Alcohol Use History: None Reported Past Drug Use History: None Reported - Past Family History Mother Sister(s) Family Medical History: Cancer Additional Family Medical History / Comment(s): COLON CANCER. GRANDFATHER ALSO HAD COLON CANCER Mother Family Medical History: Cancer Additional Family Medical History / Comment(s): Colon cancer Father Family Medical History: Hypertension Brother(s) Family Medical History: No Reported History Additional Family Medical History / Comment(s): Diverticulitis Sister(s) Family Medical History: Cancer Additional Family Medical History / Comment(s): Head and neck cancer, brain aneurysm Daughter(s) Family Medical History: No Reported History Son(s) Family Medical History: No Reported History General Exam - General Exam Comments Initial Comments: Constitutional: NAD, AOX3, Pt has pleasant affect. HEENT: NC/AT, trachea midline, neck supple, no lymphadenopathy. Posterior pharynx non erythematous, without exudates. External ears appear normal, without discharge. Mucous membranes moist. Eyes PERRLA, EOM intact. There is no scleral icterus. No pallor noted. Cardiopulmonary: RRR, no murmurs, rubs or gallops, no JVD noted. Lungs CTAB in anterior and posterior chavarria. No peripheral edema. Abdominal exam: Abdomen soft and non-distended. Abdomen non-tender to palpation in all 4 quadrants. Bowel sounds active in LLQ. No hepatosplenomegaly. No ecchymosis Neuro: CN II-XII grossly intact. No nuchal rigidity. No raccon eyes, no hoff sign, no hemotympanum. No cervical spinal tenderness. MSK: No posterior calf tenderness bilaterally, homans sign negative bilaterally. Posterior tibialis and radial pulse +2 bilaterally. Sensation intact in upper and lower extremities. Full active ROM in upper and lower extremities, 5/5 stregnth. Mild erythema noted around port sites, no fluctuance, no drainage. Limitations: no limitations Course Vital Signs 12/04/18 12/04/18 20:43 23:42 Temperature 98.2 F 97.6 F Pulse Rate 104 H 88 Respiratory 18 16 Rate Blood Pressure 148/99 125/63 O2 Sat by Pulse 98 96 Oximetry Medical Decision Making - Medical Decision Making 62-year-old female patient with past medical history pertinent for recent laparoscopic abdominal surgery for removal of adhesions approximately one week ago by Dr. Capellan this ED after erythema around port sites developed approximately 2 days ago. Patient has a systemic symptoms. Physical exam revealed erythema around port sites, mildly tender to palpation, no drainage or fluctuance. O2 investigations revealed a leukocytosis of 14. On-call surgeon Dr. Mccoy was contacted by Dr. Hutchins who recommended based laboratory investigations and discharge on oral antibiotics. Patient discharged with Bactrim due to extensive ALLERGIES to antibiotics. Patient to follow up with Dr. Capellan on Thursday and return to ER if fever develops or if condition worsens in any way. - Lab Data Result diagrams: 12/04/18 23:35 12/04/18 23:35 Lab Results 12/04/18 12/04/18 Range/Units 23:35 23:35 WBC 14.0 H (3.8-10.6) k/uL RBC 4.65 (3.80-5.40) m/uL Hgb 15.0 (11.4-16.0) gm/dL Hct 43.7 (34.0-46.0) % MCV 93.9 (80.0-100.0) fL MCH 32.2 (25.0-35.0) pg MCHC 34.3 (31.0-37.0) g/dL RDW 13.0 (11.5-15.5) % Plt Count 280 (150-450) k/uL Neutrophils % 64 % Lymphocytes % 22 % Monocytes % 7 % Eosinophils % 3 % Basophils % 1 % Neutrophils # 9.0 H (1.3-7.7) k/uL Lymphocytes # 3.0 (1.0-4.8) k/uL Monocytes # 0.9 (0-1.0) k/uL Eosinophils # 0.5 (0-0.7) k/uL Basophils # 0.1 (0-0.2) k/uL Sodium 138 (137-145) mmol/L Potassium 3.5 (3.5-5.1) mmol/L Chloride 101 (98-107) mmol/L Carbon Dioxide 30 (22-30) mmol/L Anion Gap 7 mmol/L BUN 19 H (7-17) mg/dL Creatinine 0.69 (0.52-1.04) mg/dL Est GFR (CKD-EPI)AfAm >90 (>60 ml/min/1.73 sqM) Est GFR (CKD-EPI)NonAf >90 (>60 ml/min/1.73 sqM) Glucose 102 H (74-99) mg/dL Calcium 9.6 (8.4-10.2) mg/dL Total Bilirubin 0.5 (0.2-1.3) mg/dL AST 21 (14-36) U/L ALT 26 (9-52) U/L Alkaline Phosphatase 99 (38-126) U/L Total Protein 6.1 L (6.3-8.2) g/dL Albumin 4.2 (3.5-5.0) g/dL Disposition Clinical Impression: Pain at surgical site, Cellulitis Disposition: HOME SELF-CARE Condition: Stable Instructions (If sedation given, give patient instructions): Cellulitis (ED) Additional Instructions: Patient to adhere to previously discussed treatment plan and will take medication(s) as directed. Patient to follow up with PCP in 1-2 days. Patient to return to ED if symptoms do not improve. Take medications as directed. Follow-up with Dr. Capellan on thursday. Return immediately to ER if condition worsens, fever develops. Prescriptions: Sulfamethox-Tmp 800-160Mg [Bactrim DS 800-160 mg] 2 tab PO Q12HR #40 tab Is patient prescribed a controlled substance at d/c from ED?: No Referrals: Alex Gomez DO [Primary Care Provider] - 1-2 days Nora Capellan MD [STAFF PHYSICIAN] - 1-2 days
[2018-12-04 23:43] VITALS: BP 125/63; PULSE 88; RESP 16; TEMP 97.6
[2018-12-05 00:10] LABS: ALT 26 U/L (9-52); AST 21 U/L (14-36); African American GFR (CKD) >90 (>60 ml/min/1.73 sqM); Albumin 4.2 g/dL (3.5-5.0); Alkaline Phosphatase 99 U/L (38-126); Anion Gap 7 mmol/L; Basophils # (A) 0.1 k/uL (0-0.2); Basophils % (A) 1 %; Blood Urea Nitrogen 19 mg/dL (7-17); Calcium 9.6 mg/dL (8.4-10.2); Carbon Dioxide 30 mmol/L (22-30); Chloride 101 mmol/L (98-107); Eosinophils # (A) 0.5 k/uL (0-0.7); Eosinophils % (A) 3 %; Glucose 102 mg/dL (74-99); HCT 43.7 % (34.0-46.0); Lymphocytes % (A) 22 %; MCH 32.2 pg (25.0-35.0); MCHC 34.3 g/dL (31.0-37.0); MCV 93.9 fL (80.0-100.0); Mean Platelet Volume 6.5; Monocytes # (A) 0.9 k/uL (0-1.0); Monocytes % (A) 7 %; Neutrophils % (A) 64 %; Platelet Count 280 k/uL (150-450); Potassium 3.5 mmol/L (3.5-5.1); RBC 4.65 m/uL (3.80-5.40); Sodium 138 mmol/L (137-145); Total Bilirubin 0.5 mg/dL (0.2-1.3); Total Protein 6.1 g/dL (6.3-8.2)
[2018-12-05] MEDS ORDERED: SULFAMETHOX-TMP 800-160MG 1 EACH TAB PO STA (00:17)
[2018-12-05] MEDS ORDERED: SULFAMETH-TMP DS STARTER PACK 2 TAB BTL PO STA (00:17)
[2018-12-05] MEDS ORDERED: FLUCONAZOLE 150 MG TAB PO STA (00:30)
== END 2018-12-05 00:50 | disposition home or self-care (01) ==
LOC: EC 20:40
DX: T81.49XA Infection following a procedure, other surgical site, initial encounter (principal); D72.829 Elevated white blood cell count, unspecified; J44.9 Chronic obstructive pulmonary disease, unspecified; I25.10 Atherosclerotic heart disease of native coronary artery without angina pectoris; E78.5 Hyperlipidemia, unspecified; I10 Essential (primary) hypertension; G40.909 Epilepsy, unspecified, not intractable, without status epilepticus; F41.9 Anxiety disorder, unspecified; Z87.891 Personal history of nicotine dependence; Z88.0 Allergy status to penicillin; Z88.1 Allergy status to other antibiotic agents; Z88.5 Allergy status to narcotic agent; Z88.6 Allergy status to analgesic agent; Z88.8 Allergy status to other drugs, medicaments and biological substances; Z79.51 Long term (current) use of inhaled steroids; Z79.82 Long term (current) use of aspirin; Z79.899 Other long term (current) drug therapy; Z87.19 Personal history of other diseases of the digestive system; Z85.41 Personal history of malignant neoplasm of cervix uteri; Z90.710 Acquired absence of both cervix and uterus
CPT/HCPCS: 36415; 80053; 85025; 99284

== ENCOUNTER 2018-12-22 12:36 | Observation (INO) | payer OTHER ==
[2018-12-22] MEDS ORDERED: SODIUM CHLORIDE 0.9% 1,000 ML IV ONE (13:34)
[2018-12-22] MEDS ORDERED: HYDROmorphone 1 MG/ML 1 ML SYRINGE IVP STA (13:34)
[2018-12-22] MEDS ORDERED: ONDANSETRON 4 MG/2 ML VIAL IVP STA (13:34)
[2018-12-22] MEDS ORDERED: PANTOPRAZOLE 40 MG/10 ML VIAL IVP STA (13:35)
[2018-12-22] MEDS: SODIUM CHLORIDE 0.9% 1,000 ML IV SCH (13:45)
[2018-12-22 14:00] LABS: Basophils % (A) 0 %; Eosinophils # (A) 0.4 k/uL (0-0.7); Eosinophils % (A) 5 %; HCT 42.5 % (34.0-46.0); HGB 14.6 gm/dL (11.4-16.0); Lymphocytes % (A) 22 %; MCH 32.8 pg (25.0-35.0); MCHC 34.3 g/dL (31.0-37.0); MCV 95.7 fL (80.0-100.0); Monocytes # (A) 0.7 k/uL (0-1.0); Monocytes % (A) 7 %; Neutrophils # (A) 5.9 k/uL (1.3-7.7); Neutrophils % (A) 64 %; Platelet Count 294 k/uL (150-450); RBC 4.44 m/uL (3.80-5.40); RDW 12.9 % (11.5-15.5); WBC 9.2 k/uL (3.8-10.6)
[2018-12-22 14:07] LABS: Appearance,Urine Clear (Clear); Bilirubin,Urine Negative (Negative); Blood,Urine Negative (Negative); Color,Urine Light Yellow; Glucose,Urine (UA) Negative (Negative); Ketones,Urine Negative (Negative); Leukocyte Esterase,Urine Negative (Negative); Nitrite,Urine Negative (Negative); PH, Urine 7.5 (5.0-8.0); Protein,Urine Negative (Negative); Specific Gravity,Urine 1.013 (1.001-1.035); Urobilinogen,Urine <2.0 mg/dL (<2.0)
[2018-12-22 14:12] LABS: ALT 28 U/L (9-52); AST 25 U/L (14-36); African American GFR (CKD) >90 (>60 ml/min/1.73 sqM); Albumin 4.2 g/dL (3.5-5.0); Alkaline Phosphatase 89 U/L (38-126); Amylase 65 U/L (30-110); Anion Gap 8 mmol/L; Blood Urea Nitrogen 15 mg/dL (7-17); Calcium 9.8 mg/dL (8.4-10.2); Carbon Dioxide 29 mmol/L (22-30); Chloride 103 mmol/L (98-107); Glucose 100 mg/dL (74-99); Potassium 3.4 mmol/L (3.5-5.1); Sodium 140 mmol/L (137-145); Total Bilirubin 0.5 mg/dL (0.2-1.3); Total Protein 6.3 g/dL (6.3-8.2)
--- NOTE | 2018-12-22 14:22 | XR ---
EXAMINATION TYPE: XR KUB DATE OF EXAM: 12/22/2018 COMPARISON: 04/07/2017 HISTORY: Pain TECHNIQUE: One view abdominal series FINDINGS: The osseous structures are intact. The bowel gas pattern is nonspecific. Postsurgical change right u pper quadrant. Hypertrophic change of the spine. Metallic densities overlying the pelvis likely relat ed to previous intervention.. Arthropathy of the hips. IMPRESSION: 1. Nonspecific abdomen.
--- NOTE | 2018-12-22 14:42 | CT ---
EXAMINATION TYPE: CT abdomen pelvis w con DATE OF EXAM: 12/22/2018 COMPARISON: 08/10/2017 HISTORY: Post operative abdominal pain CT DLP: 689.3 mGycm Automated exposure control for dose reduction was used. TECHNIQUE: Helical acquisition of images was performed from the lung bases through the pelvis. CONTRAST: Performed without Oral Contrast and with IV Contrast, patient injected with 100 ml mL of Isovue 300. FINDINGS: LUNG BASES: No significant abnormality is appreciated. LIVER/GB: No significant abnormality is appreciated. Gallbladder surgically absent. Mild compensatory dilatation of the common bile duct. PANCREAS: No significant abnormality is seen. SPLEEN: No significant abnormality is seen. ADRENALS: No significant abnormality is seen. KIDNEYS: No significant abnormality is seen. FREE AIR: No free air is visualized. RETROPERITONEAL ADENOPATHY: None visualized REPRODUCTIVE ORGANS: Postsurgical changes of hysterectomy. URINARY BLADDER: No significant abnormality is seen. PELVIC ADENOPATHY: None visualized. OSSEOUS STRUCTURES: No significant abnormality is seen. BOWEL: Postsurgical changes are seen near the rectosigmoid junction. Moderate amount stool is seen t hroughout the large intestines. Diverticulosis without diverticulitis. No bowel obstruction. No ascit es. No free intraperitoneal air. OTHER: Redemonstration of postsurgical changes near the gastroesophageal junction with a small hiatal hernia. IMPRESSION: NO ACUTE PROCESS WITHIN THE ABDOMEN OR PELVIS. Postsurgical changes in the abdomen as above. Constipation. Diverticulosis.
--- NOTE | 2018-12-22 14:53 | ED ---
Abdominal Pain HPI - General Chief Complaint: Abdominal Pain Stated Complaint: Abd pain-post op Time Seen by Provider: 12/22/18 12:58 Source: patient, RN notes reviewed, old records reviewed Mode of arrival: ambulatory Limitations: no limitations - History of Present Illness Initial Comments: Patient has abdominal adhesion surgery around on 11/26 complaints of pain since that time. Patient reports he is nauseated no vomiting. She states she's had some loose stools. Patient reports that she has had this persistent pain since that time. Patient reports that when she be contacted Dr. Capellan, whom told her to come here for further evaluation. She reports that she has had no fevers or chills. Her incision states been uncomfortable. - Related Data Home Medications Medication Instructions Recorded Confirmed Brivaracetam [Briviact] 100 mg PO BID 08/12/16 12/22/18 Montelukast [Singulair] 10 mg PO HS 09/17/17 12/22/18 Pantoprazole [Protonix] 40 mg PO QAM 12/03/17 12/22/18 Albuterol Inhaler [Ventolin Hfa 1 - 2 puff INHALATION RT-Q6H PRN 08/10/18 12/22/18 Inhaler] Aspirin 81 mg PO DAILY 08/10/18 12/22/18 Cyanocobalamin (Vitamin B-12) 1,000 mcg PO DAILY 08/10/18 12/22/18 [Vitamin B-12] Desvenlafaxine Succinate [Pristiq] 25 mg PO HS 08/10/18 12/22/18 Fluticasone Nasal [place] [Flonase 1 spray EA NOSTRIL DAILY 08/10/18 12/22/18 Nasal [place]] Fluticasone/Salmeterol 1 puff INHALATION RT-BID 08/10/18 12/22/18 [Fluticasone-Salmeterol 113-14] Hydrochlorothiazide 25 mg PO QAM 08/10/18 12/22/18 Potassium 594 mg PO DAILY 08/10/18 12/22/18 Spironolactone 25 mg PO QAM 08/10/18 12/22/18 Atorvastatin [Lipitor] 20 mg PO QAM 11/22/18 12/22/18 Acetaminophen [Tylenol] 325 mg PO Q4H PRN 12/22/18 12/22/18 Previous Rx's Medication Instructions Recorded Nitroglycerin Sl Tabs [Nitrostat] 0.4 mg SUBLINGUAL Q5M PRN #25 tab 09/24/17 Allergies Allergy/AdvReac Type Severity Reaction Status Date / Time adhesive Allergy Itching Verified 12/22/18 13:46 ciprofloxacin [From Cipro] Allergy Rash/Hives Verified 12/22/18 13:46 ciprofloxacin HCl Allergy Rash/Hives Verified 12/22/18 13:46 [From Cipro] clarithromycin [From Biaxin] Allergy Rash/Hives Verified 12/22/18 13:46 hydrocodone bitartrate Allergy Rash/Hives Verified 12/22/18 13:46 [From Vicodin] hydromorphone HCl Allergy Itching Verified 12/22/18 13:46 [From Dilaudid] levofloxacin [From Levaquin] Allergy Rash/Hives Verified 12/22/18 13:46 meloxicam [From Mobic] Allergy Rash/Hives Verified 12/22/18 13:46 oxycodone Allergy Rash/Hives Verified 12/22/18 13:46 Penicillins Allergy Swelling Verified 12/22/18 13:46 IN THROAT propoxyphene napsylate Allergy Rash/Hives Verified 12/22/18 13:46 [From Darvocet-N] dicyclomine [From Bentyl] AdvReac Confusion Verified 12/22/18 13:46 ipratropium [From Atrovent] AdvReac Chest Pain Verified 12/22/18 13:46 lorazepam [From Ativan] AdvReac seizures Verified 12/22/18 13:46 promethazine HCl AdvReac seizures Verified 12/22/18 13:46 [From Phenergan] tramadol HCl [From Ultram] AdvReac seizures Verified 12/22/18 13:46 DERMABOND Allergy Severe Rash/Hives Uncoded 12/22/18 13:46 Review of Systems ROS Statement: Those systems with pertinent positive or pertinent negative responses have been documented in the HPI. ROS Other: All systems not noted in ROS Statement are negative. Past Medical History Past Medical History: Asthma, Coronary Artery Disease (CAD), Cancer, COPD, Hyperlipidemia, Hypertension, Seizure Disorder Additional Past Medical History / Comment(s): Last seizure APRIL 28 OR JUN 2018. Chronic pancreatitis. Kidney stones. Recurring hiatal hernia. Migraines. Heart murmur. Diverticulitis. Fatty liver. Pain clinic. Osteopenia. Cervical cancer history in 1988. History of Any Multi-Drug Resistant Organisms: None Reported Past Surgical History: Appendectomy, Bladder Surgery, Bowel Resection, Cholecystectomy, Heart Catheterization, Hysterectomy, Orthopedic Surgery Additional Past Surgical History / Comment(s): Surgery on right salivary gland. Right elbow nerve surgery. EGD. Colonoscopy. Justin fundoplasty. EMELYN 1988, bilateral oophorectomy 1989. Bladder sling procedure. Exploratory laparscopies. Pain clinic procedures. laparoscopic adhesions Past Anesthesia/Blood Transfusion Reactions: Previous Problems w/ Anesthesia, Postoperative Nausea & Vomiting (PONV) Additional Past Anesthesia/Blood Transfusion Reaction / Comment(s): Takes long time to awaken. Past Psychological History: Anxiety, Panic Disorder Smoking Status: Former smoker Past Alcohol Use History: None Reported Past Drug Use History: None Reported - Past Family History Mother Sister(s) Family Medical History: Cancer Additional Family Medical History / Comment(s): COLON CANCER. GRANDFATHER ALSO HAD COLON CANCER Mother Family Medical History: Cancer Additional Family Medical History / Comment(s): Colon cancer Father Family Medical History: Hypertension Brother(s) Family Medical History: No Reported History Additional Family Medical History / Comment(s): Diverticulitis Sister(s) Family Medical History: Cancer Additional Family Medical History / Comment(s): Head and neck cancer, brain aneurysm Daughter(s) Family Medical History: No Reported History Son(s) Family Medical History: No Reported History General Exam - General Exam Comments Initial Comments: 63-year-old female. No acute distress. Limitations: no limitations General appearance: alert, in no apparent distress Head exam: Present: atraumatic, normocephalic, normal inspection Eye exam: Present: normal appearance, PERRL, EOMI. Absent: scleral icterus, conjunctival injection, periorbital swelling ENT exam: Present: normal exam, mucous membranes moist Neck exam: Present: normal inspection. Absent: tenderness, meningismus, lymphadenopathy Respiratory exam: Present: normal lung sounds bilaterally Cardiovascular Exam: Present: regular rate, normal rhythm, normal heart sounds. Absent: systolic murmur, diastolic murmur, rubs, gallop, clicks GI/Abdominal exam: Present: soft, tenderness (Diffuse abdominal tenderness. She reports some resources and sensory incision sites appear well.), normal bowel sounds. Absent: distended, guarding, rebound, rigid Extremities exam: Present: normal inspection, full ROM, normal capillary refill. Absent: tenderness, pedal edema, joint swelling, calf tenderness Back exam: Present: normal inspection Neurological exam: Present: alert, oriented X3, CN II-XII intact Psychiatric exam: Present: normal affect, normal mood Course Vital Signs 12/22/18 12/22/18 12:48 15:10 Temperature 98.3 F Pulse Rate 102 H 102 H Respiratory 18 18 Rate Blood Pressure 123/81 136/84 O2 Sat by Pulse 96 95 Oximetry Medical Decision Making - Medical Decision Making This is a [id number] female presents emergency department today for evaluation with complaints of diffuse abdominal pain, she reports the pain seems to be mainly epigastric pain towards her back. Patient denies any fevers or chills. She complains of pain since her last surgery for adhesions. This was done in mid November by Dr. Kent. At this time patient's labwork was reviewed and relatively unremarkable. She did have a mildly elevated lipase. Upon her review of her chart she's had similar lipases for the past year. Patient at this time has a relatively normal CT abdomen and pelvis. Postsurgical changes were noted. I discussed the case with patient's surgeon Dr. Kent. She recommends we admit the Patient for IV hydration nausea medicine and may need further evaluation for the lipase being elevated like MRCP. Patient isn't are informed of results. All questions answered. - Lab Data Result diagrams: 12/22/18 13:46 12/22/18 13:46 Lab Results 12/22/18 12/22/18 12/22/18 Range/Units 13:46 13:46 13:46 WBC 9.2 (3.8-10.6) k/uL RBC 4.44 (3.80-5.40) m/uL Hgb 14.6 (11.4-16.0) gm/dL Hct 42.5 (34.0-46.0) % MCV 95.7 (80.0-100.0) fL MCH 32.8 (25.0-35.0) pg MCHC 34.3 (31.0-37.0) g/dL RDW 12.9 (11.5-15.5) % Plt Count 294 (150-450) k/uL Neutrophils % 64 % Lymphocytes % 22 % Monocytes % 7 % Eosinophils % 5 % Basophils % 0 % Neutrophils # 5.9 (1.3-7.7) k/uL Lymphocytes # 2.0 (1.0-4.8) k/uL Monocytes # 0.7 (0-1.0) k/uL Eosinophils # 0.4 (0-0.7) k/uL Basophils # 0.0 (0-0.2) k/uL Sodium 140 (137-145) mmol/L Potassium 3.4 L (3.5-5.1) mmol/L Chloride 103 (98-107) mmol/L Carbon Dioxide 29 (22-30) mmol/L Anion Gap 8 mmol/L BUN 15 (7-17) mg/dL Creatinine 0.65 (0.52-1.04) mg/dL Est GFR (CKD-EPI)AfAm >90 (>60 ml/min/1.73 sqM) Est GFR (CKD-EPI)NonAf >90 (>60 ml/min/1.73 sqM) Glucose 100 H (74-99) mg/dL Calcium 9.8 (8.4-10.2) mg/dL Total Bilirubin 0.5 (0.2-1.3) mg/dL AST 25 (14-36) U/L ALT 28 (9-52) U/L Alkaline Phosphatase 89 (38-126) U/L Total Protein 6.3 (6.3-8.2) g/dL Albumin 4.2 (3.5-5.0) g/dL Amylase 65 (30-110) U/L Lipase 360 H (23-300) U/L Urine Color Light Yellow Urine Appearance Clear (Clear) Urine pH 7.5 (5.0-8.0) Ur Specific [place] 1.013 (1.001-1.035) Urine Protein Negative (Negative) Urine Glucose (UA) Negative (Negative) Urine Ketones Negative (Negative) Urine Blood Negative (Negative) Urine Nitrite Negative (Negative) Urine Bilirubin Negative (Negative) Urine Urobilinogen <2.0 (<2.0) mg/dL Ur Leukocyte Esterase Negative (Negative) - Radiology Data Radiology results: report reviewed No acute process within the abdomen or pelvis. Postsurgical changes of the area of the rectosigmoid junction Monurol stool seen throughout large intestine. No bowel obstruction. Diverticulosis noted. Disposition Clinical Impression: Pancreatitis, Nausea & vomiting, Abdominal pain Disposition: ADMITTED IP TO THIS HOSP Condition: Good Instructions (If sedation given, give patient instructions): Abdominal Pain (ED) Is patient prescribed a controlled substance at d/c from ED?: No Referrals: Alex Gomez DO [Primary Care Provider] - 1-2 days Time of Disposition: 15:40
[2018-12-22] MEDS ORDERED: diphenhydrAMINE 50 MG/ML 1 ML VIAL IVP STA (15:02)
[2018-12-22] MEDS ORDERED: METOCLOPRAMIDE 5 MG/ML 2 ML VIAL IVP STA (15:02)
[2018-12-22] MEDS ORDERED: ACETAMINOPHEN TAB 325 MG TAB PO PRN (15:42)
[2018-12-22] MEDS ORDERED: NALOXONE 0.4 MG/ML 1 ML VIAL IV PRN (15:42)
[2018-12-22] MEDS ORDERED: MORPHINE SULFATE 4 MG/ML SYRINGE IV PRN (15:42)
[2018-12-22] MEDS ORDERED: IBUPROFEN 400 MG TAB PO PRN (15:42)
[2018-12-22 16:50] VITALS: BMI 26.3
[2018-12-22] MEDS ORDERED: ALBUTEROL NEBULIZED 2.5 MG/3 ML INHALATION PRN (21:18)
[2018-12-22] MEDS: Desvenlafaxine Succinate [Pristiq] 25 MG PO SCH (21:57)
[2018-12-22] MEDS: Brivaracetam [Briviact] 100 MG PO SCH (21:57)
[2018-12-22] MEDS: MONTELUKAST 10 MG TAB PO SCH (21:58)
[2018-12-23] MEDS: SODIUM CHLORIDE 0.9% 1,000 ML IV SCH ×2 (02:32→20:38)
[2018-12-23] MEDS: Brivaracetam [Briviact] 100 MG PO SCH ×2 (08:50→21:19)
[2018-12-23] MEDS: SPIRONOLACTONE 25 MG TAB PO SCH (08:50)
[2018-12-23] MEDS: ATORVASTATIN 20 MG TAB PO SCH (08:50)
[2018-12-23] MEDS: CYANOCOBALAMIN 500 MCG TAB PO SCH (08:50)
[2018-12-23] MEDS: HYDROCHLOROTHIAZIDE 25 MG TAB PO SCH (08:50)
[2018-12-23] MEDS: PANTOPRAZOLE 40 MG TABLET PO SCH (08:50)
[2018-12-23] MEDS ORDERED: POTASSIUM PO SCH (09:00)
[2018-12-23] MEDS: SALMETEROL INHALATION SCH ×2 (09:25→21:28)
[2018-12-23] MEDS: FLUTICASONE INHALATION SCH ×2 (09:25→21:28)
[2018-12-23] MEDS: KETOROLAC 30 MG/ML 1 ML VIAL IVP PRN ×2 (09:56→19:57)
--- NOTE | 2018-12-23 10:21 | P.CONS ---
History of Present Illness - Reason for Consult Consult date: 12/23/18 abdominal pain chronic pancreatitis Requesting physician: Nora Capellan - Chief Complaint abdominal pain - History of Present Illness 63-year-old female with a past medical history acalculous cholecystectomy, multiple abdominal surgeries, cervical cancer, COPD, asthma, hypertension, depression, ischemic cardiomyopathy, GERD with Justin fundoplasty, and recent robotic laparoscopic exam with EMILI 11/26/2018. Patient reports a history of chronic pancreatitis that dates back more than 10 years given to her by Dr. Gomez. When asked she is unsure the reason. No histo ry of ETOH abuse. No EUS. Not sure if shes had autoimmune testing. no changes in medications. No weight loss. Upon review of medical report here records that dates back to 2016 abdominal imaging studies ado not report obvious inflammatory changes or pancreatic calcifications lipase levels nonspecific between the 3-400 range. Amylase normal. She reports being evaluated by Dr. Monreal in the past few years agoregarding chronic pancreatitis and states EUS was discussed but not advisedat the time. She underwent EGD colonoscopy within the past 6 months and reports it was normal. Abdominal pain prior to surgery was present for about 6-9 months and previously treated in the past by Dr. Paige with injections. Pain prior to surgery abdominal pains described in the midepigastric region radiating to the bilateral upper abdomen which has now resolved. Abdominal pain now is originating in the mid abdominal midepigastric region and radiating directly through between the shoulder blades.denies diarrhea or constipation. Denies hematemesis hematochezia melena fever or chills. Denies weight loss. Reports intermittent bloating in the upper abdomen. Presently white count 9.2. Hemoglobin 14.6. MCV 95. Platelet 294. Total bilirubin 0.5. AST 25. ALT 28. AP 89. Lipase 360. Amylase 65. CT abdomen no significant abnormalities seen in the pancreas spleen liver gallbladder. No ascites. Diverticulosis. Constipation. Review of Systems Constitutional: Denies fever, chills, sweats, weight gain, or loss. HEENT: Negative for migraines, blurred vision or loss, earaches, drainage, tinnitus, oral mucosal lesions, dysphagia, or odynophagia. CARDIAC: Negative for chest pain, arrhythmias, or palpitation. RESPIRATORY: Negative for shortness of breath, hemoptysis, cough, or sputum production. GI: See HPI for pertinent findings. : Negative for hematuria, urgency, frequency, polyuria, or dysuria. GYNc: Denies possibility of . Negative vaginal discharge. MUSCULOSKELETAL: Negative for muscle aches, swelling, arthritis, and arthralgias . NEUROLOGIC: Negative for stroke or TIA. ENDOCRINE: Negative for thyroid problems. SKIN: Negative for rash or itching. PSYCHIATRIC: Negative history for depression and anxiety Past Medical History Past Medical History: Asthma, Coronary Artery Disease (CAD), Cancer, COPD, Hyperlipidemia, Hypertension, Seizure Disorder Additional Past Medical History / Comment(s): Last seizure APRIL 28 OR JUN 2018. Chronic pancreatitis. Kidney stones. Recurring hiatal hernia. Migraines. Heart murmur. Diverticulitis. Fatty liver. Pain clinic. Osteopenia. Cervical cancer history in 1988. History of Any Multi-Drug Resistant Organisms: None Reported Past Surgical History: Appendectomy, Bladder Surgery, Bowel Resection, Cholecystectomy, Heart Catheterization, Hysterectomy, Orthopedic Surgery Additional Past Surgical History / Comment(s): Surgery on right salivary gland. Right elbow nerve surgery. EGD. Colonoscopy. Justin fundoplasty. EMELYN 1988, bilateral oophorectomy 1989. Bladder sling procedure. Exploratory laparscopies. Pain clinic procedures. laparoscopic adhesions Past Anesthesia/Blood Transfusion Reactions: Previous Problems w/ Anesthesia, Postoperative Nausea & Vomiting (PONV) Additional Past Anesthesia/Blood Transfusion Reaction / Comm: Takes long time to awaken. Past Psychological History: Anxiety, Panic Disorder Smoking Status: Former smoker Past Alcohol Use History: None Reported Additional Past Alcohol Use History / Comment(s): Smoked 20 years, mostly 1 PPD. Quit 1998. Past Drug Use History: None Reported - Past Family History Mother Sister(s) Family Medical History: Cancer Additional Family Medical History / Comment(s): COLON CANCER. GRANDFATHER ALSO HAD COLON CANCER Mother Family Medical History: Cancer Additional Family Medical History / Comment(s): Colon cancer Father Family Medical History: Hypertension Brother(s) Family Medical History: No Reported History Additional Family Medical History / Comment(s): Diverticulitis Sister(s) Family Medical History: Cancer Additional Family Medical History / Comment(s): Head and neck cancer, brain aneurysm Daughter(s) Family Medical History: No Reported History Son(s) Family Medical History: No Reported History Medications and Allergies Home Medications Medication Instructions Recorded Confirmed Type Brivaracetam [Briviact] 100 mg PO BID 08/12/16 12/22/18 History Montelukast [Singulair] 10 mg PO HS 09/17/17 12/22/18 History Nitroglycerin Sl Tabs [Nitrostat] 0.4 mg SUBLINGUAL Q5M PRN #25 tab 09/24/17 12/22/18 Rx Pantoprazole [Protonix] 40 mg PO QAM 12/03/17 12/22/18 History Albuterol Inhaler [Ventolin Hfa 1 - 2 puff INHALATION RT-Q6H PRN 08/10/18 12/22/18 History Inhaler] Aspirin 81 mg PO DAILY 08/10/18 12/22/18 History Cyanocobalamin (Vitamin B-12) 1,000 mcg PO DAILY 08/10/18 12/22/18 History [Vitamin B-12] Desvenlafaxine Succinate [Pristiq] 25 mg PO HS 08/10/18 12/22/18 History Fluticasone Nasal [place] [Flonase 1 spray EA NOSTRIL DAILY 08/10/18 12/22/18 H istory Nasal [place]] Fluticasone/Salmeterol 1 puff INHALATION RT-BID 08/10/18 12/22/18 History [Fluticasone-Salmeterol 113-14] Hydrochlorothiazide 25 mg PO QAM 08/10/18 12/22/18 History Potassium 594 mg PO DAILY 08/10/18 12/22/18 History Spironolactone 25 mg PO QAM 08/10/18 12/22/18 History Atorvastatin [Lipitor] 20 mg PO QAM 11/22/18 12/22/18 History Acetaminophen [Tylenol] 325 mg PO Q4H PRN 12/22/18 12/22/18 History Allergies Allergy/AdvReac Type Severity Reaction Status Date / Time adhesive Allergy Itching Verified 12/22/18 13:46 ciprofloxacin [From Cipro] Allergy Rash/Hives Verified 12/22/18 13:46 ciprofloxacin HCl Allergy Rash/Hives Verified 12/22/18 13:46 [From Cipro] clarithromycin [From Biaxin] Allergy Rash/Hives Verified 12/22/18 13:46 hydrocodone bitartrate Allergy Rash/Hives Verified 12/22/18 13:46 [From Vicodin] hydromorphone HCl Allergy Itching Verified 12/22/18 13:46 [From Dilaudid] levofloxacin [From Levaquin] Allergy Rash/Hives Verified 12/22/18 13:46 meloxicam [From Mobic] Allergy Rash/Hives Verified 12/22/18 13:46 oxycodone Allergy Rash/Hives Verified 12/22/18 13:46 Penicillins Allergy Swelling Verified 12/22/18 13:46 IN THROAT propoxyphene napsylate Allergy Rash/Hives Verified 12/22/18 13:46 [From Darvocet-N] dicyclomine [From Bentyl] AdvReac Confusion Verified 12/22/18 13:46 ipratropium [From Atrovent] AdvReac Chest Pain Verified 12/22/18 13:46 lorazepam [From Ativan] AdvReac seizures Verified 12/22/18 13:46 promethazine HCl AdvReac seizures Verified 12/22/18 13:46 [From Phenergan] tramadol HCl [From Ultram] AdvReac seizures Verified 12/22/18 13:46 DERMABOND Allergy Severe Rash/Hives Uncoded 12/22/18 13:46 Physical Exam Vitals: Vital Signs Temp Pulse Pulse Resp BP BP Pulse Ox 12/23/18 08:00 93 12 12/23/18 07:00 98 F 93 12 114/69 96 12/23/18 02:34 98.0 F 95 18 104/63 96 12/22/18 19:03 98.1 F 100 18 109/76 93 L 12/22/18 16:42 97.7 F 109 H 14 119/72 98 12/22/18 15:10 102 H 18 136/84 95 12/22/18 12:48 98.3 F 102 H 18 123/81 96 Intake and Output 12/22/18 12/23/18 12/23/18 22:59 06:59 14:59 Intake Total 200 Balance 200 Intake: Oral 200 Other: Voiding Method Toilet Toilet General appearance: The patient is alert, oriented, in no acute distress. HET: Head is normocephalic and atraumatic. Pupils are equal and reactive. Oropharynx is clear without lesions. Neck: Supple without lymphadenopathy. Trachea midline. Heart: S1 S2. Regular rate and rhythm. Lungs: No crackles or wheezes are heard. Abdomen: Soft, mildly tender to the midabdomen, mildly bloated with bowel sounds. No peritoneal signs. No palpable organomegaly or masses. Extremities: Normal skin color and turgor. No cyanosis, rash, ulceration, clubbing, or edema. Radial and pedal pulses are 2/4 bilaterally. Neurological: No focal deficits. Strength and sensation are grossly intact. Results CBC & Chem 7: 12/22/18 13:46 12/22/18 13:46 Labs: Abnormal Lab Results - Last 24 Hours (Table) 12/22/18 Range/Units 13:46 Potassium 3.4 L (3.5-5.1) mmol/L Glucose 100 H (74-99) mg/dL Lipase 360 H (23-300) U/L CT scan - abdomen: report reviewed ( Dr. Monreal) Assessment and Plan (1) Abdominal pain Narrative/Plan: 63-year-old female admitted with acute abdominal pain with a reported history of chronic pancreatitis that dates back more than 10 years ago and recent robotic laparoscopic exam for lysis of adhesions 1 month ago. Abdominal imaging studies reported no obvious abnormalities of the pancreas liver or biliary tree. Biochemically mild elevation of lipase in the 300 range with normal amylase and LFTs. Underlying IBS cannot be excluded. Current Visit: Yes Status: Acute Code(s): R10.9 - UNSPECIFIED ABDOMINAL PAIN SNOMED Code(s): 66818857 Plan: 1. We'll request autoimmune serology IgG subclass 1-4 and [employer]PH[employer]. Outpatient EUS was discussed but not advised at this time. We'll review GI office records. Low fat diet. Bentyl 10 mg TID. Avoid constipation bowel regularity was discussed as well as diet activity. For now continue with symptomatic supportive measures. Diet per surgery. Thank you for this kind referral and the opportunity to participate in the care of your patient. This consultation was discussed with Dr. Monreal. The impression and plan of care have been directed as dictated.
[2018-12-23] MEDS ORDERED: ONDANSETRON 4 MG/2 ML VIAL IVP PRN (10:39)
[2018-12-23] MEDS: SENNOSIDES-DOCUSATE SODIUM 1 EACH TAB PO SCH (15:15)
--- NOTE | 2018-12-23 15:23 | P.PN ---
<Bernadine French J Carlos - Last Filed: 12/23/18 15:20> Subjective Progress Note Date: 12/23/18 CHIEF COMPLAINT: abdominal pain HISTORY OF PRESENT ILLNESS: patient seen and examined at the bedside. Patient currently rating her abdominal pain 5 out of 10. She reports the pain is in the right upper quadrant and radiates to her back. Denies nausea or vomiting. Tolerating clear liquid diet. PHYSICAL EXAM: VITAL SIGNS: Reviewed. GENERAL: Well-developed in no acute distress. HEENT: No sclera icterus. Extraocular movements grossly intact. Moist buccal mucosa. Head is atraumatic, normocephalic. Hears conversational speech. No nasal drainage. NECK: Supple without lymphadenopathy. CHEST: Non-labored respirations and equal bilateral excursions. CARDIOVASCULAR: Regular rate with regular rhythm. Palpable 2+ radial pulses. ABDOMEN: Soft. Nondistended. Tenderness upon palpation of right upper quadrant. MUSCULOSKELETAL: No clubbing, cyanosis or edema. no pain with palpation of the back. NEUROLOGIC: No focal or lateralizing signs. Cranial nerves II through XII grossly intact. PSYCH: Appropriate affect. Alert and oriented to person, place and time. SKIN: Well perfused. Good skin turgor. ASSESSMENT: 1. Abdominal pain 2. Chronic pancreatitis PLAN: 1. Clear liquid diet. Advance as tolerated. Continue IV fluids. 2. Consult GI for further evaluation. Await recommendations 3. Monitor labs Nurse practitioner note has been reviewed by physician. Signing provider agrees with the documented findings, assessment, and plan of care. Objective - Vital Signs Vital signs: Vital Signs Temp 98 F 12/23/18 07:00 Pulse 93 12/23/18 08:00 Resp 12 12/23/18 08:00 BP 114/69 12/23/18 07:00 Pulse Ox 96 12/23/18 07:00 Intake & Output 12/22/18 12/23/18 12/23/18 18:59 06:59 18:59 Intake Total 200 700 Balance 200 700 Weight 65.317 kg Intake: Intake, IV Titration 700 Amount Sodium Chloride 0.9% 1, 700 000 ml @ 100 mls/hr IV . Q10H [facility] Rx#:[id number] Oral 200 Other: Voiding Method Toilet Toilet Toilet - Labs CBC & Chem 7: 12/22/18 13:46 12/22/18 13:46 <Nora Capellan N - Last Filed: 12/23/18 18:29> Subjective For workup of irritable bowel syndrome, patient has multiple drug ALLERGIES including to diclocymine Objective - Vital Signs Vital signs: Vital Signs Temp 98.2 F 12/23/18 15:00 Pulse 86 12/23/18 15:00 Resp 12 12/23/18 15:00 BP 131/84 12/23/18 15:00 Pulse Ox 98 12/23/18 15:00 Intake & Output 12/22/18 12/23/18 12/23/18 18:59 06:59 18:59 Intake Total 200 700 Balance 200 700 Weight 65.317 kg Intake: Intake, IV Titration 700 Amount Sodium Chloride 0.9% 1, 700 000 ml @ 100 mls/hr IV . Q10H [facility] Rx#:[id number] Oral 200 Other: Voiding Method Toilet Toilet Toilet - Labs CBC & Chem 7: 12/22/18 13:46 12/22/18 13:46 Assessment and Plan (1) Pancreatitis Current Visit: Yes Status: Acute Code(s): K85.90 - ACUTE PANCREATITIS WITHOUT NECROSIS OR INFECTION, UNSP SNOMED Code(s): 14781203 (2) Abdominal pain Current Visit: Yes Status: Acute Code(s): R10.9 - UNSPECIFIED ABDOMINAL PAIN SNOMED Code(s): 36424381 (3) Nausea & vomiting Current Visit: Yes Status: Acute Code(s): R11.2 - NAUSEA WITH VOMITING, UNSPECIFIED SNOMED Code(s): 57853248 (4) COPD (chronic obstructive pulmonary disease) Current Visit: No Status: Acute Code(s): J44.9 - CHRONIC OBSTRUCTIVE PULMONARY DISEASE, UNSPECIFIED SNOMED Code(s): 97029266 (5) Intractable abdominal pain Current Visit: No Status: Acute Code(s): R10.9 - UNSPECIFIED ABDOMINAL PAIN SNOMED Code(s): 04321609 (6) Diverticulosis Current Visit: Yes Status: Acute Code(s): K57.90 - DVRTCLOS OF INTEST, PART UNSP, W/O PERF OR ABSCESS W/O BLEED SNOMED Code(s): 551865801
[2018-12-23] MEDS ORDERED: DICYCLOMINE 10 MG CAP PO SCH (16:00)
--- NOTE | 2018-12-23 18:28 | P.GSHP ---
History of Present Illness H&P Date: 12/22/18 CHIEF COMPLAINT: Recurrent pancreatitis and abdominal pain HISTORY OF PRESENT ILLNESS: The patient is a 63-year-old female who comes in with acute bilateral upper quadrant epigastric pain with radiation to her back. She reports the pain is worse with movement including taking deep breaths. She confirms that her previous left upper quadrant abdominal pain has been resolved since her recent surgery. Incidentally, she reports the pain with radiation to her back is worse. She has known history of recurrent hiatal hernia. She denies any gastroesophageal reflux disease. Additionally she presents with elevated lipase levels. As a result of these findings, she is admitted with pancreatitis. PAST MEDICAL HISTORY: See list. PAST SURGICAL HISTORY: See list. MEDICATIONS: See list. ALLERGIES: See list. SOCIAL HISTORY: See list. FAMILY HISTORY: Consistent with colon cancer REVIEW OF ORGAN SYSTEMS: CONSTITUTIONAL: No fevers or chills. No recent weight loss. EYES: Denies any trouble with vision. Wears glasses. HEENT: No difficulties with hearing. No nosebleeds. History of difficulty swallowing. RESPIRATORY: Denies pneumonia. Has some troubles with breathing or dyspnea on exertion. CARDIOVASCULAR: Past chest pain, palpitations. No recent heart attacks. GASTROINTESTINAL: Denies fatty food intolerance. Has change in bowel habits and gas bloat. GENITOURINARY: Denies any blood in urine or increased urinary frequency. NEUROLOGICAL: Denies any numbness or tingling along the distal extremities. Has seizure disorders. No headaches. MUSCULOSKELETAL: Denies any back pain, stiffness or joint arthritis. SKIN: No current skin cancer. No rash. PSYCHIATRIC: Has depression. No suicidal thoughts. ENDOCRINE: Denies current thyroid disorders. Denies any blood sugar glucose intolerance. HEME/LYMPHATIC: Denies any lumps and bumps around the neck. No recent deep veno us thrombosis. ALLERGY/IMMUNOLOGY: No immunoglobulin therapy. No immune deficiencies. BREAST: Denies current breast lumps, pain or nipple discharge. PHYSICAL EXAM: VITALS: Reviewed CONSTITUTIONAL: Well developed and in no acute distress. EYES: Conjuctivae without sclera icterus. Pupils are equally round and reactive to light. Extraocular movements grossly intact. HEAD, EARS, NOSE, THROAT: Moist buccal mucosa. Head is atraumatic, normocephalic. Hears conversational speech. No nasal drainage. NECK: Supple. No JV distention. No thyroidomegaly. RESPIRATORY: Non-labored respirations and equal bilateral excursions. No gross wheezes. CARDIOVASCULAR: Regular rate and rhythm. Extremities without moderate edema. Palpable 2+ radial pulses. ABDOMEN: No hepatomegaly. Soft. Tender along the epigastrium. No peritonitis. LYMPH: No neck lymphadenopathy. No axillary lymphadenopathy. MUSCULOSKELETAL: Range of motion bilateral upper extremities within normal limits. Nail and fingers with good capillary refill. SKIN: Warm and well perfused with good skin turgor. NEUROLOGIC: Cranial nerves I through XII grossly intact. Sensation upper and extremities intact. No focal or lateralizing signs. PSYCH: Appropriate affect. Alert and oriented to person, place and time. Displays appropriate insight. CLINCAL LABS: Reviewed. Lipase elevated over 300. RADIOLOGY: Report reviewed without free air or inflammation. MEDICAL TEST: Endoscopy reviewed Of upper endoscopy confirms recurrent hiatal hernia IMAGING: Independently reviewed with diverticulosis including along right upper quadrant and epigastrium. Moderate stool burden along transverse colon and sigmoid colon ASSESSMENT: 1. Pancreatitis 2. Epigastric abdominal pain 3. Diverticulosis 4. Multiple ALLERGIES PLAN: 1. Recommend GI consultation for work-up of cryptogenic pancreatitis 2. IV fluid hydration. 3. DVT prophylaxis 4. GI prophylaxis Past Medical History Past Medical History: Asthma, Coronary Artery Disease (CAD), Cancer, COPD, Hyperlipidemia, Hypertension, Seizure Disorder Additional Past Medical History / Comment(s): Last seizure APRIL 28 OR JUN 2018. Chronic pancreatitis. Kidney stones. Recurring hiatal hernia. Migraines. Heart murmur. Diverticulitis. Fatty liver. Pain clinic. Osteopenia. Cervical cancer history in 1988. History of Any Multi-Drug Resistant Organisms: None Reported Past Surgical History: Appendectomy, Bladder Surgery, Bowel Resection, Cholecystectomy, Heart Catheterization, Hysterectomy, Orthopedic Surgery Additional Past Surgical History / Comment(s): Surgery on right salivary gland. Right elbow nerve surgery. EGD. Colonoscopy. Justin fundoplasty. EMELYN 1988, bilateral oophorectomy 1989. Bladder sling procedure. Exploratory laparscopies. Pain clinic procedures. laparoscopic adhesions Past Anesthesia/Blood Transfusion Reactions: Previous Problems w/ Anesthesia, Postoperative Nausea & Vomiting (PONV) Additional Past Anesthesia/Blood Transfusion Reaction / Comment(s): Takes long time to awaken. Past Psychological History: Anxiety, Panic Disorder Smoking Status: Former smoker Past Alcohol Use History: None Reported Additional Past Alcohol Use History / Comment(s): Smoked 20 years, mostly 1 PPD. Quit 1998. Past Drug Use History: None Reported - Past Family History Mother Sister(s) Family Medical History: Cancer Additional Family Medical History / Comment(s): COLON CANCER. GRANDFATHER ALSO HAD COLON CANCER Mother Family Medical History: Cancer Additional Family Medical History / Comment(s): Colon cancer Father Family Medical History: Hypertension Brother(s) Family Medical History: No Reported History Additional Family Medical History / Comment(s): Diverticulitis Sister(s) Family Medical History: Cancer Additional Family Medical History / Comment(s): Head and neck cancer, brain aneurysm Daughter(s) Family Medical History: No Reported History Son(s) Family Medical History: No Reported History Medications and Allergies Home Medications Medication Instructions Recorded Confirmed Type Brivaracetam [Briviact] 100 mg PO BID 08/12/16 12/22/18 History Montelukast [Singulair] 10 mg PO HS 09/17/17 12/22/18 History Nitroglycerin Sl Tabs [Nitrostat] 0.4 mg SUBLINGUAL Q5M PRN #25 tab 09/24/17 12/22/18 Rx Pantoprazole [Protonix] 40 mg PO QAM 12/03/17 12/22/18 History Albuterol Inhaler [Ventolin Hfa 1 - 2 puff INHALATION RT-Q6H PRN 08/10/18 12/22/18 History Inhaler] Aspirin 81 mg PO DAILY 08/10/18 12/22/18 History Cyanocobalamin (Vitamin B-12) 1,000 mcg PO DAILY 08/10/18 12/22/18 History [Vitamin B-12] Desvenlafaxine Succinate [Pristiq] 25 mg PO HS 08/10/18 12/22/18 History Fluticasone Nasal [place] [Flonase 1 spray EA NOSTRIL DAILY 08/10/18 12/22/18 History Nasal [place]] Fluticasone/Salmeterol 1 puff INHALATION RT-BID 08/10/18 12/22/18 History [Fluticasone-Salmeterol 113-14] Hydrochlorothiazide 25 mg PO QAM 08/10/18 12/22/18 History Potassium 594 mg PO DAILY 08/10/18 12/22/18 History Spironolactone 25 mg PO QAM 08/10/18 12/22/18 History Atorvastatin [Lipitor] 20 mg PO QAM 11/22/18 12/22/18 History Acetaminophen [Tylenol] 325 mg PO Q4H PRN 12/22/18 12/22/18 History Allergies Allergy/AdvReac Type Severity Reaction Status Date / Time adhesive Allergy Itching Verified 12/22/18 13:46 ciprofloxacin [From Cipro] Allergy Rash/Hives Verified 12/22/18 13:46 ciprofloxacin HCl Allergy Rash/Hives Verified 12/22/18 13:46 [From Cipro] clarithromycin [From Biaxin] Allergy Rash/Hives Verified 12/22/18 13:46 hydrocodone bitartrate Allergy Rash/Hives Verified 12/22/18 13:46 [From Vicodin] hydromorphone HCl Allergy Itching Verified 12/22/18 13:46 [From Dilaudid] levofloxacin [From Levaquin] Allergy Rash/Hives Verified 12/22/18 13:46 meloxicam [From Mobic] Allergy Rash/Hives Verified 12/22/18 13:46 oxycodone Allergy Rash/Hives Verified 12/22/18 13:46 Penicillins Allergy Swelling Verified 12/22/18 13:46 IN THROAT propoxyphene napsylate Allergy Rash/Hives Verified 12/22/18 13:46 [From Darvocet-N] dicyclomine [From Bentyl] AdvReac Confusion Verified 12/22/18 13:46 ipratropium [From Atrovent] AdvReac Chest Pain Verified 12/22/18 13:46 lorazepam [From Ativan] AdvReac seizures Verified 12/22/18 13:46 promethazine HCl AdvReac seizures Verified 12/22/18 13:46 [From Phenergan] tramadol HCl [From Ultram] AdvReac seizures Verified 12/22/18 13:46 DERMABOND Allergy Severe Rash/Hives Uncoded 12/22/18 13:46 Surgical - Exam Vital Signs Temp Pulse Resp BP Pulse Ox 98.3 F 102 H 18 123/81 96 12/22/18 12:48 12/22/18 12:48 12/22/18 12:48 12/22/18 12:48 12/22/18 12:48 Results - Labs 12/22/18 13:46 12/22/18 13:46 Assessment and Plan (1) Pancreatitis Current Visit: Yes Status: Acute Code(s): K85.90 - ACUTE PANCREATITIS WITHOUT NECROSIS OR INFECTION, UNSP SNOMED Code(s): 89191020 (2) Abdominal pain Current Visit: Yes Status: Acute Code(s): R10.9 - UNSPECIFIED ABDOMINAL PAIN SNOMED Code(s): 02817294 (3) Nausea & vomiting Current Visit: Yes Status: Acute Code(s): R11.2 - NAUSEA WITH VOMITING, UNSPECIFIED SNOMED Code(s): 40489513 (4) COPD (chronic obstructive pulmonary disease) Current Visit: No Status: Acute Code(s): J44.9 - CHRONIC OBSTRUCTIVE PULMONARY DISEASE, UNSPECIFIED SNOMED Code(s): 44851626 (5) Intractable abdominal pain Current Visit: No Status: Acute Code(s): R10.9 - UNSPECIFIED ABDOMINAL PAIN SNOMED Code(s): 68289843 (6) Diverticulosis Current Visit: Yes Status: Acute Code(s): K57.90 - DVRTCLOS OF INTEST, PART UNSP, W/O PERF OR ABSCESS W/O BLEED SNOMED Code(s): 121159704
[2018-12-23] MEDS: Desvenlafaxine Succinate [Pristiq] 25 MG PO SCH (19:56)
[2018-12-23] MEDS: MONTELUKAST 10 MG TAB PO SCH (19:57)
[2018-12-23] MEDS: FLUTICASONE SALMETEROL INHALATION SCH (21:20)
[2018-12-24] MEDS: SODIUM CHLORIDE 0.9% 1,000 ML IV SCH ×3 (05:02→14:41)
[2018-12-24] MEDS: FLUTICASONE SALMETEROL INHALATION SCH ×2 (09:01→09:03)
[2018-12-24] MEDS ORDERED: MAGNESIUM CITRATE 296 ML BOTTLE PO ONE (09:03)
[2018-12-24] MEDS ORDERED: MAGNESIUM HYDROXIDE 2,400 MG/10 ML CUP PO ONE (09:03)
[2018-12-24 09:37] LABS: ALT 26 U/L (9-52); AST 25 U/L (14-36); African American GFR (CKD) >90 (>60 ml/min/1.73 sqM); Albumin 3.9 g/dL (3.5-5.0); Alkaline Phosphatase 74 U/L (38-126); Amylase 51 U/L (30-110); Anion Gap 8 mmol/L; Blood Urea Nitrogen 7 mg/dL (7-17); Calcium 9.1 mg/dL (8.4-10.2); Carbon Dioxide 26 mmol/L (22-30); Chloride 107 mmol/L (98-107); Glucose 103 mg/dL (74-99); Potassium 3.6 mmol/L (3.5-5.1); Sodium 141 mmol/L (137-145); Total Bilirubin 0.4 mg/dL (0.2-1.3); Total Protein 5.8 g/dL (6.3-8.2)
[2018-12-24 09:43] VITALS: BP 117/81; PULSE 83; RESP 16; TEMP 98.9
[2018-12-24] MEDS: SPIRONOLACTONE 25 MG TAB PO SCH (09:44)
[2018-12-24] MEDS: ATORVASTATIN 20 MG TAB PO SCH (09:45)
[2018-12-24] MEDS: SENNOSIDES-DOCUSATE SODIUM 1 EACH TAB PO SCH (09:45)
[2018-12-24] MEDS: CYANOCOBALAMIN 500 MCG TAB PO SCH (09:45)
[2018-12-24] MEDS: HYDROCHLOROTHIAZIDE 25 MG TAB PO SCH (09:45)
[2018-12-24] MEDS: PANTOPRAZOLE 40 MG TABLET PO SCH (09:45)
[2018-12-24] MEDS: Brivaracetam [Briviact] 100 MG PO SCH (10:11)
--- NOTE | 2018-12-24 10:49 | P.PN ---
Subjective Progress Note Date: 12/24/18 Principal diagnosis: abdominal pain Feels a little better today. Past a few small pieces of nonbloody stool. Receiving laxatives. Afebrile. Objective - Vital Signs Vital signs: Vital Signs Temp 98.9 F 12/24/18 09:42 Pulse 83 12/24/18 09:42 Resp 16 12/24/18 09:42 BP 117/81 12/24/18 09:42 Pulse Ox 96 12/24/18 09:42 Intake & Output 12/23/18 12/24/18 12/24/18 18:59 06:59 18:59 Intake Total 700 260 Balance 700 260 Intake: Intake, IV Titration 700 Amount Sodium Chloride 0.9% 1, 700 000 ml @ 100 mls/hr IV . Q10H [facility] Rx#:[id number] Oral 260 Other: Voiding Method Toilet Toilet - Exam General appearance: The patient is alert, oriented, in no acute distress. HET: Head is normocephalic and atraumatic. Pupils are equal and reactive. Oropharynx is clear without lesions. Neck: Supple without lymphadenopathy. Trachea midline. Heart: S1 S2. Regular rate and rhythm. Lungs: No crackles or wheezes are heard. Abdomen: Soft, mild tenderness across the midabdomen, nondistended with bowel sounds. No peritoneal signs. No palpable organomegaly or masses. Extremities: Normal skin color and turgor. No cyanosis, rash, ulceration, clubbing, or edema. Radial and pedal pulses are 2/4 bilaterally. Neurological: No focal deficits. Strength and sensation are grossly intact. - Labs CBC & Chem 7: 12/22/18 13:46 12/24/18 08:38 Labs: Abnormal Lab Results - Last 24 Hours (Table) 12/22/18 12/24/18 Range/Units 13:46 08:38 Glucose 103 H (74-99) mg/dL Total Protein 5.8 L (6.3-8.2) g/dL Lipase 317 H (23-300) U/L IgG1 172.0 L (405.0-1011.0) mg/dL Assessment and Plan (1) Abdominal pain Narrative/Plan: 63-year-old female admitted with acute abdominal pain with a reported history of chronic pancreatitis that dates back more than 10 years ago and recent robotic laparoscopic exam for lysis of adhesions 1 month ago. Abdominal imaging studies reported no obvious abnormalities of the pancreas liver or biliary tree. Biochemically mild elevation of lipase in the 300 range with normal amylase and LFTs. Underlying IBS cannot be excluded. Current Visit: Yes Status: Acute Code(s): R10.9 - UNSPECIFIED ABDOMINAL PAIN SNOMED Code(s): 11500930 Plan: 1. Stool softeners daily for regularity. Patient has a bowel movement she may be discharged. Follow-up in GI clinic as needed. Assessment and plan a care discussed with Dr. Monreal
[2018-12-24 11:16] LABS: IgG Subclass 2 93.3 mg/dL (169.0-640.0)
--- NOTE | 2018-12-24 15:17 | P.DS ---
<Bernadine French J Carlos - Last Filed: 12/24/18 15:13> Providers Expected date of discharge: 12/24/18 Hospital Course: The patient is a 63-year-old female who comes in with acute bilateral upper quadrant epigastric pain with radiation to her back. She reports the pain is worse with movement including taking deep breaths. She confirms that her previous left upper quadrant abdominal pain has been resolved since her recent surgery. Incidentally, she reports the pain with radiation to her back is worse. She has known history of recurrent hiatal hernia. She denies any gastroesophageal reflux disease. Additionally she presents with elevated lipase levels. As a result of these findings, she is admitted with pancreatitis. GI was consulted for further evaluation. Autoimmune serology was ordered per GI team. She was started on Senna S per GI. Possibilty of IBS per GI service. Thea herndon also reports constipation. She was given a dose of Milk of Magnesia. She reports her abdominal pain has improved and is requesting discharge. Patient is stable for discharge home today. She is to follow up outpatient with Dr. Capellan and also GI service. Please see EMR for further hospital course details. Discharge diagnosis 1. Abdominal pain 2. Chronic pancreatitis 3. Diverticulosis Nurse practitioner note has been reviewed by physician. Signing provider agrees with the documented findings, assessment, and plan of care. Patient Condition at Discharge: Stable Plan - Discharge Summary Discharge Rx Participant: Yes New Discharge Prescriptions: New Sennosides/Docusate Sodium [Senna-S Laxative Tablet] 1 each PO DAILY PRN #30 tablet PRN Reason: Constipation Continue Brivaracetam [Briviact] 100 mg PO BID Montelukast [Singulair] 10 mg PO HS Nitroglycerin Sl Tabs [Nitrostat] 0.4 mg SUBLINGUAL Q5M PRN #25 tab PRN Reason: Chest Pain Pantoprazole [Protonix] 40 mg PO QAM Albuterol Inhaler [Ventolin Hfa Inhaler] 1 - 2 puff INHALATION RT-Q6H PRN PRN Reason: Shortness Of Breath Desvenlafaxine Succinate [Pristiq] 25 mg PO HS Fluticasone Nasal [place] [Flonase Nasal [place]] 1 spray EA NOSTRIL DAILY Aspirin 81 mg PO DAILY Spironolactone 25 mg PO QAM Potassium 594 mg PO DAILY Hydrochlorothiazide 25 mg PO QAM Fluticasone/Salmeterol [Fluticasone-Salmeterol 113-14] 1 puff INHALATION RT- BID Cyanocobalamin (Vitamin B-12) [Vitamin B-12] 1,000 mcg PO DAILY Atorvastatin [Lipitor] 20 mg PO QAM Acetaminophen [Tylenol] 325 mg PO Q4H PRN PRN Reason: Pain Discharge Medication List Brivaracetam [Briviact] 100 mg PO BID 08/12/16 [History] Montelukast [Singulair] 10 mg PO HS 09/17/17 [History] Nitroglycerin Sl Tabs [Nitrostat] 0.4 mg SUBLINGUAL Q5M PRN #25 tab 09/24/17 [Rx] Pantoprazole [Protonix] 40 mg PO QAM 12/03/17 [History] Albuterol Inhaler [Ventolin Hfa Inhaler] 1 - 2 puff INHALATION RT-Q6H PRN 08/10/18 [History] Aspirin 81 mg PO DAILY 08/10/18 [History] Cyanocobalamin (Vitamin B-12) [Vitamin B-12] 1,000 mcg PO DAILY 08/10/18 [History] Desvenlafaxine Succinate [Pristiq] 25 mg PO HS 08/10/18 [History] Fluticasone Nasal [place] [Flonase Nasal [place]] 1 spray EA NOSTRIL DAILY 08/10/18 [History] Fluticasone/Salmeterol [Fluticasone-Salmeterol 113-14] 1 puff INHALATION RT-BID 08/10/18 [History] Hydrochlorothiazide 25 mg PO QAM 08/10/18 [History] Potassium 594 mg PO DAILY 08/10/18 [History] Spironolactone 25 mg PO QAM 08/10/18 [History] Atorvastatin [Lipitor] 20 mg PO QAM 11/22/18 [History] Acetaminophen [Tylenol] 325 mg PO Q4H PRN 12/22/18 [History] Sennosides/Docusate Sodium [Senna-S Laxative Tablet] 1 each PO DAILY PRN #30 tablet 12/24/18 [Rx] Follow up Appointment(s)/Referral(s): Angeles Monreal MD [STAFF PHYSICIAN] - 2 Weeks Alex Gomez DO [Primary Care Provider] - 1-2 days Patient Instructions/Handouts: Abdominal Pain (ED) Activity/Diet/Wound Care/Special Instructions: Please make appt. Activity as tolerated. Diet as tolerated. <Nora Capellan - Last Filed: 12/24/18 20:28> Providers Date of admission: 12/22/18 15:23 Attending physician: Nora Capellan Primary care physician: Alex Gomez - Discharge Diagnosis(es) (1) Pancreatitis Status: Acute (2) Abdominal pain Status: Acute (3) Nausea & vomiting Status: Acute (4) COPD (chronic obstructive pulmonary disease) Status: Acute (5) Intractable abdominal pain Status: Acute (6) Diverticulosis Status: Acute
== END 2018-12-24 15:45 | disposition home or self-care (01) ==
LOC: EC 12:36 → 4SSUR 15:23
PROVIDERS: ADMIT Surgery Plastic and Reconstructive Surgery; ATTEND Surgery Plastic and Reconstructive Surgery
DX: K85.90 Acute pancreatitis without necrosis or infection, unspecified (principal); K86.1 Other chronic pancreatitis; K57.90 Diverticulosis of intestine, part unspecified, without perforation or abscess without bleeding; K44.9 Diaphragmatic hernia without obstruction or gangrene; I10 Essential (primary) hypertension; F32.9 Major depressive disorder, single episode, unspecified; I25.5 Ischemic cardiomyopathy; K21.9 Gastro-esophageal reflux disease without esophagitis; Z88.9 Allergy status to unspecified drugs, medicaments and biological substances; J44.9 Chronic obstructive pulmonary disease, unspecified; E78.5 Hyperlipidemia, unspecified; F41.0 Panic disorder [episodic paroxysmal anxiety]; G40.909 Epilepsy, unspecified, not intractable, without status epilepticus; G89.29 Other chronic pain; I25.10 Atherosclerotic heart disease of native coronary artery without angina pectoris; K58.9 Irritable bowel syndrome, unspecified; K76.0 Fatty (change of) liver, not elsewhere classified; M85.80 Other specified disorders of bone density and structure, unspecified site; Z87.442 Personal history of urinary calculi; Z79.899 Other long term (current) drug therapy; Z90.49 Acquired absence of other specified parts of digestive tract; Z85.41 Personal history of malignant neoplasm of cervix uteri; Z87.19 Personal history of other diseases of the digestive system; Z90.710 Acquired absence of both cervix and uterus; Z90.722 Acquired absence of ovaries, bilateral; Z87.891 Personal history of nicotine dependence; Z91.048 Other nonmedicinal substance allergy status; Z79.82 Long term (current) use of aspirin; Z88.1 Allergy status to other antibiotic agents; Z88.5 Allergy status to narcotic agent; Z88.0 Allergy status to penicillin; Z88.8 Allergy status to other drugs, medicaments and biological substances; Z82.49 Family history of ischemic heart disease and other diseases of the circulatory system; Z80.0 Family history of malignant neoplasm of digestive organs; Z80.8 Family history of malignant neoplasm of other organs or systems
CPT/HCPCS: 96376; 96375 ×2; 96361; 96374; 99285; 36415; 94640; 80053 ×2; 82150 ×2; 83690 ×2; 85025; 81003; 82787; 86038; 74018; 74177; G0378 ×3; J1200; J2765; J2405 ×2; J1885; J1170; C9113; Q9967

== ENCOUNTER → 2019-05-09 | Outpatient (CLI) | payer OTHER ==
[2019-05-09 16:16] LABS: Basophils % (A) 0 %; Eosinophils # (A) 0.2 k/uL (0-0.7); Eosinophils % (A) 2 %; HGB 16.4 gm/dL (11.4-16.0); Lymphocytes # (A) 1.9 k/uL (1.0-4.8); Lymphocytes % (A) 19 %; MCH 33.2 pg (25.0-35.0); MCHC 34.9 g/dL (31.0-37.0); MCV 95.2 fL (80.0-100.0); Mean Platelet Volume 8.1; Monocytes # (A) 0.6 k/uL (0-1.0); Monocytes % (A) 6 %; Neutrophils # (A) 7.3 k/uL (1.3-7.7); Neutrophils % (A) 72 %; Platelet Count 315 k/uL (150-450); RBC 4.94 m/uL (3.80-5.40); RDW 12.1 % (11.5-15.5); WBC 10.3 k/uL (3.8-10.6)
== END | disposition home or self-care (01) ==
LOC: LABWHC1 14:50
PROVIDERS: ATTEND Family Medicine
DX: D72.828 Other elevated white blood cell count (principal)
CPT/HCPCS: 36415; 85025

== ENCOUNTER 2019-05-30 11:20 | Emergency (ER) | payer OTHER ==
[2019-05-30] MEDS ORDERED: SODIUM CHLORIDE 0.9% 500 ML 500 ML IV STA (12:20)
[2019-05-30 12:34] VITALS: RESP 16
[2019-05-30 12:43] LABS: Basophils # (A) 0.2 k/uL (0-0.2); Basophils % (A) 1 %; Eosinophils # (A) 0.1 k/uL (0-0.7); Eosinophils % (A) 1 %; HCT 44.2 % (34.0-46.0); HGB 15.3 gm/dL (11.4-16.0); Lymphocytes # (A) 2.3 k/uL (1.0-4.8); Lymphocytes % (A) 15 %; MCH 33.5 pg (25.0-35.0); MCHC 34.7 g/dL (31.0-37.0); MCV 96.5 fL (80.0-100.0); Mean Platelet Volume 7.5; Monocytes # (A) 0.6 k/uL (0-1.0); Monocytes % (A) 4 %; Neutrophils # (A) 12.1 k/uL (1.3-7.7); Neutrophils % (A) 78 %; Platelet Count 273 k/uL (150-450); RBC 4.58 m/uL (3.80-5.40); RDW 12.5 % (11.5-15.5); WBC 15.5 k/uL (3.8-10.6)
[2019-05-30 12:47] LABS: ALT 30 U/L (4-34); AST 26 U/L (14-36); African American GFR (CKD) >90 (>60 ml/min/1.73 sqM); Albumin 3.9 g/dL (3.5-5.0); Alkaline Phosphatase 77 U/L (38-126); Anion Gap 5 mmol/L; Blood Urea Nitrogen 16 mg/dL (7-17); Calcium 9.3 mg/dL (8.4-10.2); Carbon Dioxide 27 mmol/L (22-30); Chloride 105 mmol/L (98-107); Glucose 88 mg/dL (74-99); Non-African American GFR(CKD) >90 (>60 ml/min/1.73 sqM); Potassium 4.5 mmol/L (3.5-5.1); Sodium 137 mmol/L (137-145); Total Bilirubin 0.7 mg/dL (0.2-1.3); Total Protein 5.8 g/dL (6.3-8.2)
[2019-05-30 12:55] LABS: INR 0.9 (<1.2); Prothrombin Time 9.8 sec (9.0-12.0)
--- NOTE | 2019-05-30 13:28 | ED ---
General Adult HPI - General Chief complaint: Shortness of Breath Stated complaint: poss steriod reaction Time Seen by Provider: 05/30/19 11:59 Source: patient, RN notes reviewed Mode of arrival: ambulatory Limitations: no limitations - History of Present Illness Initial comments: 63-year-old female with a past medical history of asthma, CAD, COPD, hyper lipidemia, hypertension presents to the emergency department for a chief complaint of bruising. Patient states that she has had a cough for about 4 weeks for which she was put on steroids by Dr. Xiao. Patient states she is on her second course of 15 and a steroid so has been taking this about 28 days. States that her cough in terms of breath is improving however she now has bruises that have been appearing for the past couple days. She denies blood thinner usage. She denies coagulation disorder or blood disorder. States that her friend told her it may be secondary to the steroids that she decided to come in.Patient has no other complaints at this time including shortness of breath, chest pain, abdominal pain, nausea or vomiting, headache, or visual changes. - Related Data Home Medications Medication Instructions Recorded Confirmed Brivaracetam [Briviact] 100 mg PO BID 08/12/16 12/22/18 Montelukast [Singulair] 10 mg PO HS 09/17/17 12/22/18 Pantoprazole [Protonix] 40 mg PO QAM 12/03/17 12/22/18 Albuterol Inhaler [Ventolin Hfa 1 - 2 puff INHALATION RT-Q6H PRN 08/10/18 12/22/18 Inhaler] Aspirin 81 mg PO DAILY 08/10/18 12/22/18 Cyanocobalamin (Vitamin B-12) 1,000 mcg PO DAILY 08/10/18 12/22/18 [Vitamin B-12] Desvenlafaxine Succinate [Pristiq] 25 mg PO HS 08/10/18 12/22/18 Fluticasone Nasal [place] [Flonase 1 spray EA NOSTRIL DAILY 08/10/18 12/22/18 Nasal [place]] Fluticasone/Salmeterol 1 puff INHALATION RT-BID 08/10/18 12/22/18 [Fluticasone-Salmeterol 113-14] Hydrochlorothiazide 25 mg PO QAM 08/10/18 12/22/18 Potassium 594 mg PO DAILY 08/10/18 12/22/18 Spironolactone 25 mg PO QAM 08/10/18 12/22/18 Atorvastatin [Lipitor] 20 mg PO QAM 11/22/18 12/22/18 Acetaminophen [Tylenol] 325 mg PO Q4H PRN 12/22/18 12/22/18 Previous Rx's Medication Instructions Recorded Nitroglycerin Sl Tabs [Nitrostat] 0.4 mg SUBLINGUAL Q5M PRN #25 tab 09/24/17 Sennosides/Docusate Sodium 1 each PO DAILY PRN #30 tablet 12/24/18 [Senna-S Laxative Tablet] Allergies Allergy/AdvReac Type Severity Reaction Status Date / Time adhesive Allergy Itching Verified 05/30/19 11:26 ciprofloxacin [From Cipro] Allergy Rash/Hives Verified 05/30/19 11:26 ciprofloxacin HCl Allergy Rash/Hives Verified 05/30/19 11:26 [From Cipro] clarithromycin [From Biaxin] Allergy Rash/Hives Verified 05/30/19 11:26 hydrocodone bitartrate Allergy Rash/Hives Verified 05/30/19 11:26 [From Vicodin] hydromorphone HCl Allergy Itching Verified 05/30/19 11:26 [From Dilaudid] levofloxacin [From Levaquin] Allergy Rash/Hives Verified 05/30/19 11:26 meloxicam [From Mobic] Allergy Rash/Hives Verified 05/30/19 11:26 oxycodone Allergy Rash/Hives Verified 05/30/19 11:26 Penicillins Allergy Swelling Verified 05/30/19 11:26 IN THROAT propoxyphene napsylate Allergy Rash/Hives Verified 05/30/19 11:26 [From Darvocet-N] dicyclomine [From Bentyl] AdvReac Confusion Verified 05/30/19 11:26 ipratropium [From Atrovent] AdvReac Chest Pain Verified 05/30/19 11:26 lorazepam [From Ativan] AdvReac seizures Verified 05/30/19 11:26 promethazine HCl AdvReac seizures Verified 05/30/19 11:26 [From Phenergan] tramadol HCl [From Ultram] AdvReac seizures Verified 05/30/19 11:26 DERMABOND Allergy Severe Rash/Hives Uncoded 05/30/19 11:26 Review of Systems ROS Statement: Those systems with pertinent positive or pertinent negative responses have been documented in the HPI. ROS Other: All systems not noted in ROS Statement are negative. Past Medical History Past Medical History: Asthma, Coronary Artery Disease (CAD), Cancer, COPD, Hyperlipidemia, Hypertension, Seizure Disorder Additional Past Medical History / Comment(s): Last seizure APRIL 28 OR JUN 2018. Chronic pancreatitis. Kidney stones. Recurring hiatal hernia. Migraines. Heart murmur. Diverticulitis. Fatty liver. Pain clinic. Osteopenia. Cervical cancer history in 1988. History of Any Multi-Drug Resistant Organisms: None Reported Past Surgical History: Appendectomy, Bladder Surgery, Bowel Resection, Cholecystectomy, Heart Catheterization, Hysterectomy, Orthopedic Surgery Additional Past Surgical History / Comment(s): Surgery on right salivary gland. Right elbow nerve surgery. EGD. Colonoscopy. Justin fundoplasty. EMELYN 1988, bilateral oophorectomy 1989. Bladder sling procedure. Exploratory laparscopies. Pain clinic procedures. laparoscopic adhesions Past Anesthesia/Blood Transfusion Reactions: Previous Problems w/ Anesthesia, Postoperative Nausea & Vomiting (PONV) Additional Past Anesthesia/Blood Transfusion Reaction / Comment(s): Takes long time to awaken. Past Psychological History: Anxiety, Panic Disorder Smoking Status: Former smoker Past Alcohol Use History: None Reported Past Drug Use History: None Reported - Past Family History Mother Sister(s) Family Medical History: Cancer Additional Family Medical History / Comment(s): COLON CANCER. GRANDFATHER ALSO HAD COLON CANCER Mother Family Medical History: Cancer Additional Family Medical History / Comment(s): Colon cancer Father Family Medical History: Hypertension Brother(s) Family Medical History: No Reported History Additional Family Medical History / Comment(s): Diverticulitis Sister(s) Family Medical History: Cancer Additional Family Medical History / Comment(s): Head and neck cancer, brain aneurysm Daughter(s) Family Medical History: No Reported History Son(s) Family Medical History: No Reported History General Exam Limitations: no limitations General appearance: alert, in no apparent distress Head exam: Present: atraumatic, normocephalic, normal inspection Eye exam: Present: normal appearance, PERRL, EOMI. Absent: scleral icterus, conjunctival injection, periorbital swelling ENT exam: Present: normal exam, mucous membranes moist Neck exam: Present: normal inspection, full ROM. Absent: tenderness, meningismus, lymphadenopathy Respiratory exam: Present: normal lung sounds bilaterally. Absent: respiratory distress, wheezes, rales, rhonchi, stridor Cardiovascular Exam: Present: regular rate, normal rhythm, normal heart sounds. Absent: systolic murmur, diastolic murmur, rubs, gallop, clicks Extremities exam: Present: other (small scattered areas of ecchymosis noted on extermities. ) Neurological exam: Present: alert Psychiatric exam: Present: normal affect, normal mood Course Vital Signs 05/30/19 05/30/19 11:21 12:31 Temperature 98.5 F Pulse Rate 98 86 Respiratory 18 16 Rate Blood Pressure 122/79 139/95 O2 Sat by Pulse 98 99 Oximetry EKG Findings - EKG Comments: EKG Findings:: Normal sinus rhythm, ventricular rate 85, ME interval 122, QTC 430 Medical Decision Making - Medical Decision Making Patient presents for minimal amount of ecchymosis on the extremities. This is generally unimpressive. Very sporadic. White blood cell count is 6.5 which is likely secondary to steroids platelets 273. PTT PT/INR are unremarkable. BMP unremarkable. Chest x-ray shows no acute cardiopulmonary process. No significant change from prior. Patient is not on any blood thinners. No history of coagulopathy. At this time as patient only has 2 days left of her surgery would recommend she stop these follow up with primary care for additional evaluation. She will return here if she has any worsening symptoms. - Lab Data Result diagrams: 05/30/19 12:06 05/30/19 12:06 Lab Results 05/30/19 05/30/19 05/30/19 Range/Units 12:06 12:06 12:06 WBC 15.5 H (3.8-10.6) k/uL RBC 4.58 (3.80-5.40) m/uL Hgb 15.3 (11.4-16.0) gm/dL Hct 44.2 (34.0-46.0) % MCV 96.5 (80.0-100.0) fL MCH 33.5 (25.0-35.0) pg MCHC 34.7 (31.0-37.0) g/dL RDW 12.5 (11.5-15.5) % Plt Count 273 (150-450) k/uL Neutrophils % 78 % Lymphocytes % 15 % Monocytes % 4 % Eosinophils % 1 % Basophils % 1 % Neutrophils # 12.1 H (1.3-7.7) k/uL Lymphocytes # 2.3 (1.0-4.8) k/uL Monocytes # 0.6 (0-1.0) k/uL Eosinophils # 0.1 (0-0.7) k/uL Basophils # 0.2 (0-0.2) k/uL PT 9.8 (9.0-12.0) sec INR 0.9 (<1.2) APTT 20.0 L (22.0-30.0) sec Sodium 137 (137-145) mmol/L Potassium 4.5 (3.5-5.1) mmol/L Chloride 105 (98-107) mmol/L Carbon Dioxide 27 (22-30) mmol/L Anion Gap 5 mmol/L BUN 16 (7-17) mg/dL Creatinine 0.69 (0.52-1.04) mg/dL Est GFR (CKD-EPI)AfAm >90 (>60 ml/min/1.73 sqM) Est GFR (CKD-EPI)NonAf >90 (>60 ml/min/1.73 sqM) Glucose 88 (74-99) mg/dL Calcium 9.3 (8.4-10.2) mg/dL Total Bilirubin 0.7 (0.2-1.3) mg/dL AST 26 (14-36) U/L ALT 30 (4-34) U/L Alkaline Phosphatase 77 (38-126) U/L Total Protein 5.8 L (6.3-8.2) g/dL Albumin 3.9 (3.5-5.0) g/dL Disposition Clinical Impression: Contusion Disposition: HOME SELF-CARE Condition: Good Instructions (If sedation given, give patient instructions): Contusion in Adults (ED) Additional Instructions: Please discontinue steroids. Follow-up with primary care in 1-2 days. Return to the emergency department if you have any worsening symptoms. Is patient prescribed a controlled substance at d/c from ED?: No Referrals: Alex Gomez DO [Primary Care Provider] - 1-2 days Time of Disposition: 14:20
--- NOTE | 2019-05-30 13:40 | XR ---
EXAMINATION TYPE: XR chest 2V DATE OF EXAM: 05/30/2019 COMPARISON: Chest x-ray October 09, 2018. HISTORY: Cough and shortness of breath TECHNIQUE: Frontal and lateral views of the chest are obtained. FINDINGS: Overlying EKG leads. There is no focal air space opacity, pleural effusion, or pneumothorax seen. The cardiac silhouette size is within normal limits. Cholecystectomy clips are redemonstrated . The osseous structures are intact. IMPRESSION: No acute cardiopulmonary process. No significant change from prior.
[2019-05-30 14:44] VITALS: BP 125/81; PULSE 87; TEMP 98.3
== END 2019-05-30 14:42 | disposition home or self-care (01) ==
LOC: EC 11:20
DX: S80.12XA Contusion of left lower leg, initial encounter (principal); S80.11XA Contusion of right lower leg, initial encounter; S40.022A Contusion of left upper arm, initial encounter; S40.021A Contusion of right upper arm, initial encounter; R05 Cough; J44.9 Chronic obstructive pulmonary disease, unspecified; I25.10 Atherosclerotic heart disease of native coronary artery without angina pectoris; E78.5 Hyperlipidemia, unspecified; I10 Essential (primary) hypertension; G40.909 Epilepsy, unspecified, not intractable, without status epilepticus; Z87.891 Personal history of nicotine dependence; Z88.0 Allergy status to penicillin; Z88.1 Allergy status to other antibiotic agents; Z88.5 Allergy status to narcotic agent; Z88.6 Allergy status to analgesic agent; Z88.8 Allergy status to other drugs, medicaments and biological substances; Z91.048 Other nonmedicinal substance allergy status; Z79.51 Long term (current) use of inhaled steroids; Z79.82 Long term (current) use of aspirin; Z79.899 Other long term (current) drug therapy; Z85.41 Personal history of malignant neoplasm of cervix uteri; Z87.19 Personal history of other diseases of the digestive system; Z90.710 Acquired absence of both cervix and uterus; X58.XXXA Exposure to other specified factors, initial encounter
CPT/HCPCS: 36415; 71046; 80053; 85025; 85610; 85730; 93005; 96360; 99285

== ENCOUNTER 2019-06-11 20:41 | Emergency (ER) | payer OTHER ==
[2019-06-11 20:55] VITALS: TEMP 98.3
[2019-06-11] MEDS ORDERED: SODIUM CHLORIDE 0.9% 1,000 ML IV STA (21:01)
[2019-06-11] MEDS ORDERED: SODIUM CHLORIDE 0.9% 1,000 ML IV ONE (21:01)
--- NOTE | 2019-06-11 21:01 | ED ---
Seizure HPI - General Chief Complaint: Seizure Stated Complaint: seizure Time Seen by Provider: 06/11/19 20:45 Source: patient, family, EMS, RN notes reviewed, old records reviewed Mode of arrival: EMS Limitations: altered mental status - History of Present Illness Initial Comments: This is a 62-year-old female DF for evaluation patient closely for evaluation regards to seizure-like activity possibly up 3 times today. As well as collapsed hitting the ground, patient's primary EMS significantly unresponsive secondary to postictal state history obtained from EMS patient is unable to give history due to the patient had multiple seizures today and has been postictal, with normal vital signs since transfer MD Complaint: seizure, possible seizure -: hour(s) Description of Episode: loss of consciousness -: second(s) Witnessed: yes - by bystander Trauma: No Seizure History: known seizure disorder, history of withdrawal seizures Place: home Possible Precipitating Event: none Associated Symptoms: denies other symptoms Treatments Prior to Arrival: none - Related Data Home Medications Medication Instructions Recorded Confirmed Brivaracetam [Briviact] 100 mg PO BID 08/12/16 06/11/19 Montelukast [Singulair] 10 mg PO HS 09/17/17 06/11/19 Pantoprazole [Protonix] 40 mg PO QAM 12/03/17 06/11/19 Albuterol Inhaler [Ventolin Hfa 1 - 2 puff INHALATION RT-Q6H PRN 08/10/18 06/11/19 Inhaler] Aspirin 81 mg PO DAILY 08/10/18 06/11/19 Cyanocobalamin (Vitamin B-12) 1,000 mcg PO DAILY 08/10/18 06/11/19 [Vitamin B-12] Desvenlafaxine Succinate [Pristiq] 25 mg PO HS 08/10/18 06/11/19 Fluticasone Nasal [place] [Flonase 2 spray EA NOSTRIL DAILY 08/10/18 06/11/19 Nasal [place]] Fluticasone/Salmeterol 1 puff INHALATION RT-BID 08/10/18 06/11/19 [Fluticasone-Salmeterol 113-14] Hydrochlorothiazide 25 mg PO QAM 08/10/18 06/11/19 Potassium 594 mg PO DAILY 08/10/18 06/11/19 Spironolactone 12.5 mg PO QAM 08/10/18 06/11/19 Atorvastatin [Lipitor] 20 mg PO QAM 11/22/18 06/11/19 Acetaminophen [Tylenol] 325 mg PO Q4H PRN 12/22/18 06/11/19 ALPRAZolam [Xanax] 0.25 mg PO DAILY PRN 06/11/19 06/11/19 Previous Rx's Medication Instructions Recorded Nitroglycerin Sl Tabs [Nitrostat] 0.4 mg SUBLINGUAL Q5M PRN #25 tab 09/24/17 Sennosides/Docusate Sodium 1 each PO DAILY PRN #30 tablet 12/24/18 [Senna-S Laxative Tablet] Allergies Allergy/AdvReac Type Severity Reaction Status Date / Time adhesive Allergy Itching Verified 06/11/19 22:45 ciprofloxacin [From Cipro] Allergy Rash/Hives Verified 06/11/19 22:45 ciprofloxacin HCl Allergy Rash/Hives Verified 06/11/19 22:45 [From Cipro] clarithromycin [From Biaxin] Allergy Rash/Hives Verified 06/11/19 22:45 hydrocodone bitartrate Allergy Rash/Hives Verified 06/11/19 22:45 [From Vicodin] hydromorphone HCl Allergy Itching Verified 06/11/19 22:45 [From Dilaudid] levofloxacin [From Levaquin] Allergy Rash/Hives Verified 06/11/19 22:45 meloxicam [From Mobic] Allergy Rash/Hives Verified 06/11/19 22:45 oxycodone Allergy Rash/Hives Verified 06/11/19 22:45 Penicillins Allergy Swelling Verified 06/11/19 22:45 IN THROAT propoxyphene napsylate Allergy Rash/Hives Verified 06/11/19 22:45 [From Darvocet-N] dicyclomine [From Bentyl] AdvReac Confusion Verified 06/11/19 22:45 ipratropium [From Atrovent] AdvReac Chest Pain Verified 06/11/19 22:45 lorazepam [From Ativan] AdvReac seizures Verified 06/11/19 22:45 promethazine HCl AdvReac seizures Verified 06/11/19 22:45 [From Phenergan] tramadol HCl [From Ultram] AdvReac seizures Verified 06/11/19 22:45 DERMABOND Allergy Severe Rash/Hives Uncoded 06/11/19 22:45 Review of Systems ROS Statement: Those systems with pertinent positive or pertinent negative responses have been documented in the HPI. ROS Other: All systems not noted in ROS Statement are negative. Past Medical History Past Medical History: Asthma, Coronary Artery Disease (CAD), Cancer, COPD, Hyper lipidemia, Hypertension, Seizure Disorder Additional Past Medical History / Comment(s): Last seizure APRIL 28 OR JUN 2018. Chronic pancreatitis. Kidney stones. Recurring hiatal hernia. Migraines. Heart murmur. Diverticulitis. Fatty liver. Pain clinic. Osteopenia. Cervical cancer history in 1988. History of Any Multi-Drug Resistant Organisms: None Reported Past Surgical History: Appendectomy, Bladder Surgery, Bowel Resection, Cholecystectomy, Heart Catheterization, Hysterectomy, Orthopedic Surgery Additional Past Surgical History / Comment(s): Surgery on right salivary gland. Right elbow nerve surgery. EGD. Colonoscopy. Justin fundoplasty. EMELYN 1988, bilateral oophorectomy 1989. Bladder sling procedure. Exploratory laparscopies. Pain clinic procedures. laparoscopic adhesions Past Anesthesia/Blood Transfusion Reactions: Previous Problems w/ Anesthesia, Postoperative Nausea & Vomiting (PONV) Additional Past Anesthesia/Blood Transfusion Reaction / Comment(s): Takes long time to awaken. Past Psychological History: Anxiety, Panic Disorder Smoking Status: Former smoker Past Alcohol Use History: None Reported Past Drug Use History: None Reported - Past Family History Mother Sister(s) Family Medical History: Cancer Additional Family Medical History / Comment(s): COLON CANCER. GRANDFATHER ALSO HAD COLON CANCER Mother Family Medical History: Cancer Additional Family Medical History / Comment(s): Colon cancer Father Family Medical History: Hypertension Brother(s) Family Medical History: No Reported History Additional Family Medical History / Comment(s): Diverticulitis Sister(s) Family Medical History: Cancer Additional Family Medical History / Comment(s): Head and neck cancer, brain aneurysm Daughter(s) Family Medical History: No Reported History Son(s) Family Medical History: No Reported History General Exam Limitations: altered mental status General appearance: alert, in no apparent distress Head exam: Present: atraumatic, normocephalic, normal inspection Eye exam: Present: normal appearance, PERRL, EOMI. Absent: scleral icterus, conjunctival injection, periorbital swelling ENT exam: Present: normal exam, mucous membranes moist Neck exam: Present: normal inspection. Absent: tenderness, meningismus, lymphadenopathy Respiratory exam: Present: normal lung sounds bilaterally. Absent: respiratory distress, wheezes, rales, rhonchi, stridor Cardiovascular Exam: Present: regular rate, normal rhythm, normal heart sounds. Absent: systolic murmur, diastolic murmur, rubs, gallop, clicks GI/Abdominal exam: Present: soft, normal bowel sounds. Absent: distended, tenderness, guarding, rebound, rigid Extremities exam: Present: normal inspection, full ROM, normal capillary refill. Absent: tenderness, pedal edema, joint swelling, calf tenderness Back exam: Present: normal inspection Neurological exam: Present: alert, oriented X3, CN II-XII intact Psychiatric exam: Present: normal affect, normal mood Skin exam: Present: warm, dry, intact, normal color. Absent: rash Course Vital Signs 06/11/19 06/11/19 20:49 22:30 Temperature 98.3 F Pulse Rate 81 98 Respiratory 18 16 Rate Blood Pressure 131/81 134/76 O2 Sat by Pulse 100 96 Oximetry - Reevaluation(s) Reevaluation #1: 06/11/19 21:00 Medical records reviewed including extensive ALLERGY list Reevaluation #2: 06/11/19 23:11 patient has a few recurrent seizures although they do resolve spontaneously Reevaluation #3: 06/12/19 00:09 Patient has been seizure-free for the last 2 hours, at this point patient will resume home medications Medical Decision Making - Medical Decision Making 63 female here with recurrent seizure, seizure-like activity as well as well here in the ER. Patient does not want transfer to another hospital for neurology, patient without seizure here in the ER currently. Patient can be discharged home - Lab Data Result diagrams: 06/11/19 20:50 06/11/19 20:50 Lab Results 06/11/19 06/11/19 06/11/19 Range/Units 20:50 20:50 23:20 WBC 8.4 (3.8-10.6) k/uL RBC 4.54 (3.80-5.40) m/uL Hgb 14.8 (11.4-16.0) gm/dL Hct 43.2 (34.0-46.0) % MCV 95.2 (80.0-100.0) fL MCH 32.7 (25.0-35.0) pg MCHC 34.3 (31.0-37.0) g/dL RDW 12.5 (11.5-15.5) % Plt Count 233 (150-450) k/uL Neutrophils % 57 % Lymphocytes % 26 % Monocytes % 7 % Eosinophils % 4 % Basophils % 3 % Neutrophils # 4.7 (1.3-7.7) k/uL Lymphocytes # 2.2 (1.0-4.8) k/uL Monocytes # 0.6 (0-1.0) k/uL Eosinophils # 0.4 (0-0.7) k/uL Basophils # 0.3 H (0-0.2) k/uL Sodium 137 (137-145) mmol/L Potassium 3.3 L (3.5-5.1) mmol/L Chloride 104 (98-107) mmol/L Carbon Dioxide 26 (22-30) mmol/L Anion Gap 7 mmol/L BUN 15 (7-17) mg/dL Creatinine 0.67 (0.52-1.04) mg/dL Est GFR (CKD-EPI)AfAm >90 (>60 ml/min/1.73 sqM) Est GFR (CKD-EPI)NonAf >90 (>60 ml/min/1.73 sqM) Glucose 81 (74-99) mg/dL Calcium 9.4 (8.4-10.2) mg/dL Phosphorus 3.7 (2.5-4.5) mg/dL Magnesium 2.1 (1.6-2.3) mg/dL Total Bilirubin 0.6 (0.2-1.3) mg/dL AST 35 (14-36) U/L ALT 31 (4-34) U/L Alkaline Phosphatase 92 (38-126) U/L Total Protein 6.3 (6.3-8.2) g/dL Albumin 4.2 (3.5-5.0) g/dL Urine Color Yellow Urine Appearance Clear (Clear) Urine pH 5.5 (5.0-8.0) Ur Specific [place] 1.019 (1.001-1.035) Urine Protein Negative (Negative) Urine Glucose (UA) Negative (Negative) Urine Ketones Negative (Negative) Urine Blood Negative (Negative) Urine Nitrite Negative (Negative) Urine Bilirubin Negative (Negative) Urine Urobilinogen <2.0 (<2.0) mg/dL Ur Leukocyte Esterase Negative (Negative) Salicylates <1.0 mg/dL Acetaminophen <10.0 ug/mL - EKG Data -: EKG Interpreted by Me (EKG shows sinus arrhythmia 94, MA 146, QRS 86, QTc 465) - Radiology Data Radiology results: report reviewed (CT brain Cspine negative for genetic injury chest x-ray and pelvis x-ray negative for acute medical injury), image reviewed Disposition Clinical Impression: Epileptic seizure, generalized Disposition: HOME SELF-CARE Condition: Good Instructions (If sedation given, give patient instructions): Recurrent Seizures in Adults (ED) Is patient prescribed a controlled substance at d/c from ED?: No Referrals: Guzman Bowen MD [STAFF PHYSICIAN] - 1-2 days
[2019-06-11 21:11] LABS: Basophils # (A) 0.3 k/uL (0-0.2); Basophils % (A) 3 %; Eosinophils # (A) 0.4 k/uL (0-0.7); Eosinophils % (A) 4 %; HCT 43.2 % (34.0-46.0); HGB 14.8 gm/dL (11.4-16.0); Lymphocytes # (A) 2.2 k/uL (1.0-4.8); Lymphocytes % (A) 26 %; MCH 32.7 pg (25.0-35.0); MCHC 34.3 g/dL (31.0-37.0); MCV 95.2 fL (80.0-100.0); Mean Platelet Volume 7.7; Monocytes # (A) 0.6 k/uL (0-1.0); Monocytes % (A) 7 %; Neutrophils # (A) 4.7 k/uL (1.3-7.7); Neutrophils % (A) 57 %; Platelet Count 233 k/uL (150-450); RBC 4.54 m/uL (3.80-5.40); RDW 12.5 % (11.5-15.5); WBC 8.4 k/uL (3.8-10.6)
[2019-06-11 21:20] LABS: ALT 31 U/L (4-34); AST 35 U/L (14-36); Acetaminophen <10.0 ug/mL; African American GFR (CKD) >90 (>60 ml/min/1.73 sqM); Albumin 4.2 g/dL (3.5-5.0); Alkaline Phosphatase 92 U/L (38-126); Anion Gap 7 mmol/L; Blood Urea Nitrogen 15 mg/dL (7-17); Calcium 9.4 mg/dL (8.4-10.2); Carbon Dioxide 26 mmol/L (22-30); Chloride 104 mmol/L (98-107); Glucose 81 mg/dL (74-99); Magnesium 2.1 mg/dL (1.6-2.3); Non-African American GFR(CKD) >90 (>60 ml/min/1.73 sqM); Phosphorus 3.7 mg/dL (2.5-4.5); Potassium 3.3 mmol/L (3.5-5.1); Salicylate <1.0 mg/dL; Sodium 137 mmol/L (137-145); Total Bilirubin 0.6 mg/dL (0.2-1.3); Total Protein 6.3 g/dL (6.3-8.2)
--- NOTE | 2019-06-11 21:33 | CT ---
EXAMINATION TYPE: CT brain cspine wo con DATE OF EXAM: 06/11/2019 COMPARISON: Brain 06/14/2018 HISTORY: 63-year-old female with seizure CT DLP: 1263.4 mGycm Automated exposure control for dose reduction was used. Technique: Examination of the head was done in axial plane without intravenous contrast. Coronal and sagittal reconstructions performed. CT of the cervical spine was obtained in axial plane without intravenous injection of contrast mater ial. Coronal and sagittal reformatted images were obtained from the axial views for evaluation of f ractures, spinal alignment and canal. FINDINGS: Head: There is no evidence of acute intracranial hemorrhage, acute ischemic changes, mass, mass-effect, or extra-axial fluid collection. There is no effacement of cerebral sulci or basal subarachnoid cister ns. There is no hydrocephalus. There is no midline shift. Yuen-white matter distinction is preserv ed. There is moderate bifrontal atrophy. Partially empty sella. Trace mucosal thickening ethmoid air cells. Mastoid air cells are well pneumatized. Orbits and globes are intact. Cervical spine: No craniocervical junction abnormality, predental space widening, or prevertebral soft tissue swellin g. Retropharyngeal course of the ICA. Right submandibular gland not visualized, either atrophic or surgi vilma absent. Emphysematous change in the visualized upper lungs. Congenital posterior fusion defect of C1. Straightening of the normal cervical lordosis but with preserved alignment. Mild degenerative disc disease mid to lower cervical spine, more moderate at C6-C7. Assessment of the spinal canal from C5-C6 and below is limited due to artifact from patient's shoulde rs. Uncovertebral joint arthropathy lower cervical spine. Sagittal and coronal reformatted images confirm above findings. COMBINED IMPRESSION: 1. Moderate bifrontal atrophy. No acute intracranial abnormality seen. 2. No acute fracture or malalignment of the cervical spine. Mild spondylotic change lower cervical sp ine.
--- NOTE | 2019-06-11 21:35 | XR ---
EXAMINATION TYPE: XR chest 1V DATE OF EXAM: 06/11/2019 COMPARISON: 05/30/2019 HISTORY: 63-year-old female with fall after 3 seizures, pain TECHNIQUE: Single frontal view of the chest is obtained. FINDINGS: Heart upper limits of normal in size. Aorta and pulmonary vasculature within normal limits. Some patc hy left basilar opacity adjacent to the cardiac apex. No other consolidation. No sizable effusion. IMPRESSION: Some left basilar opacity could represent atelectasis or developing infiltrate.
--- NOTE | 2019-06-11 21:36 | XR ---
EXAMINATION TYPE: XR pelvis AP view DATE OF EXAM: 06/11/2019 COMPARISON: 12/22/2018 HISTORY: 63-year-old female with fall and pain TECHNIQUE: AP view FINDINGS: Suture anchors within the pubic bones. Focal sclerosis superior right acetabulum is unchanged suggest zack of a bone island. SI joints appear symmetric and intact as do the hips and pubic symphysis. Some sutures within the left paramedian pelvis suggesting prior bowel surgery. No acute fracture, subluxat ion, or dislocation. IMPRESSION: No acute osseous abnormality seen.
[2019-06-11] MEDS ORDERED: MORPHINE SULFATE 4 MG/ML SYRINGE IVP STA (22:21)
[2019-06-11] MEDS ORDERED: ONDANSETRON 4 MG/2 ML VIAL IVP STA (22:54)
[2019-06-11 23:25] LABS: Appearance,Urine Clear (Clear); Bilirubin,Urine Negative (Negative); Blood,Urine Negative (Negative); Color,Urine Yellow; Glucose,Urine (UA) Negative (Negative); Ketones,Urine Negative (Negative); Leukocyte Esterase,Urine Negative (Negative); Nitrite,Urine Negative (Negative); PH, Urine 5.5 (5.0-8.0); Protein,Urine Negative (Negative); Specific Gravity,Urine 1.019 (1.001-1.035); Urobilinogen,Urine <2.0 mg/dL (<2.0)
[2019-06-12 00:44] VITALS: BP 120/63; PULSE 92; RESP 18
== END 2019-06-12 00:43 | disposition home or self-care (01) ==
LOC: EC 20:41
DX: G40.409 Other generalized epilepsy and epileptic syndromes, not intractable, without status epilepticus (principal); R41.82 Altered mental status, unspecified; J44.9 Chronic obstructive pulmonary disease, unspecified; I25.10 Atherosclerotic heart disease of native coronary artery without angina pectoris; E78.5 Hyperlipidemia, unspecified; I10 Essential (primary) hypertension; Z87.891 Personal history of nicotine dependence; Z88.0 Allergy status to penicillin; Z88.1 Allergy status to other antibiotic agents; Z88.5 Allergy status to narcotic agent; Z88.6 Allergy status to analgesic agent; Z88.8 Allergy status to other drugs, medicaments and biological substances; Z91.048 Other nonmedicinal substance allergy status; Z79.51 Long term (current) use of inhaled steroids; Z79.82 Long term (current) use of aspirin; Z79.899 Other long term (current) drug therapy; Z85.41 Personal history of malignant neoplasm of cervix uteri; Z87.19 Personal history of other diseases of the digestive system; Z86.69 Personal history of other diseases of the nervous system and sense organs; Z87.39 Personal history of other diseases of the musculoskeletal system and connective tissue; Z90.710 Acquired absence of both cervix and uterus; Z82.0 Family history of epilepsy and other diseases of the nervous system
CPT/HCPCS: 36415; 93005; 80053; 83735; 84100; 85025; 81003; 83520; 72170; 71045; 72125; 70450; 99285; 96374; 96375; 96361 ×3; G0480; J2270; J2405; 80329

== ENCOUNTER 2019-06-13 11:19 | Observation (INO) | payer OTHER ==
[2019-06-13] MEDS ORDERED: SODIUM CHLORIDE 0.9% 1,000 ML IV STA (11:40)
--- NOTE | 2019-06-13 11:47 | ED ---
General Adult HPI - General Chief complaint: Seizure Stated complaint: seizures Time Seen by Provider: 06/13/19 11:20 Source: patient, EMS, RN notes reviewed Mode of arrival: EMS Limitations: no limitations - History of Present Illness Initial comments: Patient is a pleasant 63-year-old female presenting to the emergency department for seizure. Patient states her anticonvulsant was recently decreased. Patient states dose was restarted at 100 just a few days ago. Patient states she did miss all of her medication on Thursday. Patient did have several seizures yesterday. Patient had reported 3 seizures prior to EMS arrival today. Fire department witness a fourth seizure and EMS witness a fifth seizure that resolved with Versed. Patient feels drowsy and fatigued at this time. Patient states she does have a mild headache however that is chronic with her history of seizures. Patient does have known generalized tonic-clonic seizures since 2010. Patient states generally her medication has been controlling her seizures. Last seizure prior to this weekend was one year ago. Patient states this was associated with low potassium. Patient denies any recent illness. - Related Data Home Medications Medication Instructions Recorded Confirmed Brivaracetam [Briviact] 100 mg PO BID 08/12/16 06/11/19 Montelukast [Singulair] 10 mg PO HS 09/17/17 06/11/19 Pantoprazole [Protonix] 40 mg PO QAM 12/03/17 06/11/19 Albuterol Inhaler [Ventolin Hfa 1 - 2 puff INHALATION RT-Q6H PRN 08/10/18 06/11/19 Inhaler] Aspirin 81 mg PO DAILY 08/10/18 06/11/19 Cyanocobalamin (Vitamin B-12) 1,000 mcg PO DAILY 08/10/18 06/11/19 [Vitamin B-12] Desvenlafaxine Succinate [Pristiq] 25 mg PO HS 08/10/18 06/11/19 Fluticasone Nasal [place] [Flonase 2 spray EA NOSTRIL DAILY 08/10/18 06/11/19 Nasal [place]] Fluticasone/Salmeterol 1 puff INHALATION RT-BID 08/10/18 06/11/19 [Fluticasone-Salmeterol 113-14] Hydrochlorothiazide 25 mg PO QAM 08/10/18 06/11/19 Potassium 594 mg PO DAILY 08/10/18 06/11/19 Spironolactone 12.5 mg PO QAM 08/10/18 06/11/19 Atorvastatin [Lipitor] 20 mg PO QAM 11/22/18 06/11/19 Acetaminophen [Tylenol] 325 mg PO Q4H PRN 12/22/18 06/11/19 ALPRAZolam [Xanax] 0.25 mg PO DAILY PRN 06/11/19 06/11/19 Previous Rx's Medication Instructions Recorded Nitroglycerin Sl Tabs [Nitrostat] 0.4 mg SUBLINGUAL Q5M PRN #25 tab 09/24/17 Sennosides/Docusate Sodium 1 each PO DAILY PRN #30 tablet 12/24/18 [Senna-S Laxative Tablet] Allergies Allergy/AdvReac Type Severity Reaction Status Date / Time adhesive Allergy Itching Verified 06/11/19 22:45 ciprofloxacin [From Cipro] Allergy Rash/Hives Verified 06/11/19 22:45 ciprofloxacin HCl Allergy Rash/Hives Verified 06/11/19 22:45 [From Cipro] clarithromycin [From Biaxin] Allergy Rash/Hives Verified 06/11/19 22:45 hydrocodone bitartrate Allergy Rash/Hives Verified 06/11/19 22:45 [From Vicodin] hydromorphone HCl Allergy Itching Verified 06/11/19 22:45 [From Dilaudid] levofloxacin [From Levaquin] Allergy Rash/Hives Verified 06/11/19 22:45 meloxicam [From Mobic] Allergy Rash/Hives Verified 06/11/19 22:45 oxycodone Allergy Rash/Hives Verified 06/11/19 22:45 Penicillins Allergy Swelling Verified 06/11/19 22:45 IN THROAT propoxyphene napsylate Allergy Rash/Hives Verified 06/11/19 22:45 [From Darvocet-N] dicyclomine [From Bentyl] AdvReac Confusion Verified 06/11/19 22:45 ipratropium [From Atrovent] AdvReac Chest Pain Verified 06/11/19 22:45 lorazepam [From Ativan] AdvReac seizures Verified 06/11/19 22:45 promethazine HCl AdvReac seizures Verified 06/11/19 22:45 [From Phenergan] tramadol HCl [From Ultram] AdvReac seizures Verified 06/11/19 22:45 DERMABOND Allergy Severe Rash/Hives Uncoded 06/11/19 22:45 Review of Systems ROS Statement: Those systems with pertinent positive or pertinent negative responses have been documented in the HPI. ROS Other: All systems not noted in ROS Statement are negative. Constitutional: Denies: fever Eyes: Denies: eye pain ENT: Denies: ear pain Respiratory: Denies: dyspnea Cardiovascular: Denies: chest pain Endocrine: Reports: fatigue Gastrointestinal: Denies: abdominal pain Genitourinary: Denies: dysuria Musculoskeletal: Denies: back pain Skin: Denies: rash Neurological: Reports: as per HPI, headache Past Medical History Past Medical History: Asthma, Coronary Artery Disease (CAD), Cancer, COPD, Hyperlipidemia, Hypertension, Seizure Disorder Additional Past Medical History / Comment(s): Last seizure APRIL 28 OR JUN 2018. Chronic pancreatitis. Kidney stones. Recurring hiatal hernia. Migraines. Heart murmur. Diverticulitis. Fatty liver. Pain clinic. Osteopenia. Cervical cancer history in 1988. History of Any Multi-Drug Resistant Organisms: None Reported Past Surgical History: Appendectomy, Bladder Surgery, Bowel Resection, Cholecystectomy, Heart Catheterization, Hysterectomy, Orthopedic Surgery Additional Past Surgical History / Comment(s): Surgery on right salivary gland. Right elbow nerve surgery. EGD. Colonoscopy. Justin fundoplasty. EMELYN 1988, bilateral oophorectomy 1989. Bladder sling procedure. Exploratory laparscopies. Pain clinic procedures. laparoscopic adhesions Past Anesthesia/Blood Transfusion Reactions: Previous Problems w/ Anesthesia, Postoperative Nausea & Vomiting (PONV) Additional Past Anesthesia/Blood Transfusion Reaction / Comment(s): Takes long time to awaken. Past Psychological History: Anxiety, Panic Disorder Smoking Status: Former smoker Past Alcohol Use History: None Reported Past Drug Use History: None Reported - Past Family History Mother Sister(s) Family Medical History: Cancer Additional Family Medical History / Comment(s): COLON CANCER. GRANDFATHER ALSO HAD COLON CANCER Mother Family Medical History: Cancer Additional Family Medical History / Comment(s): Colon cancer Father Family Medical History: Hypertension Brother(s) Family Medical History: No Reported History Additional Family Medical History / Comment(s): Diverticulitis Sister(s) Family Medical History: Cancer Additional Family Medical History / Comment(s): Head and neck cancer, brain aneurysm Daughter(s) Family Medical History: No Reported History Son(s) Family Medical History: No Reported History General Exam Limitations: no limitations General appearance: alert, in no apparent distress Head exam: Present: normocephalic Eye exam: Present: normal appearance, PERRL ENT exam: Present: normal oropharynx Neck exam: Present: normal inspection. Absent: tenderness, meningismus Respiratory exam: Present: normal lung sounds bilaterally Cardiovascular Exam: Present: regular rate, normal rhythm GI/Abdominal exam: Present: soft. Absent: tenderness Extremities exam: Present: normal inspection. Absent: pedal edema, calf tenderness Neurological exam: Present: alert, oriented X3, CN II-XII intact. Absent: motor sensory deficit Expanded Neurological exam: Absent: protecting the airway Patient oriented to: Present: person, place, time Speech: Present: fluid speech Cranial nerves: EOM's Intact: Normal Motor strength exam: RUE: 5, LUE: 5, RLE: 5, LLE: 5 Eye Response: (4) open spontaneously Motor Response: (6) obeys commands Verbal Response: (5) oriented Psychiatric exam: Present: normal affect, normal mood Skin exam: Present: normal color Course Vital Signs 06/13/19 11:22 Temperature 98.6 F Pulse Rate 111 H Respiratory 18 Rate Blood Pressure 129/88 O2 Sat by Pulse 97 Oximetry EKG Findings - EKG Comments: EKG Findings:: Sinus tachycardia at 111. NM 104. QRS 78. QTC 490. QTc 666. Normal axis. Inferior Q waves. No acute ST change. Medical Decision Making - Medical Decision Making Patient reevaluated and resting comfortably in bed. Case was discussed with Dr. Abreu, who will admit covered for Dr. Jenkins. Neurology will be consulted. - Lab Data Result diagrams: 06/13/19 11:48 06/13/19 11:48 Lab Results 06/13/19 06/13/19 06/13/19 Range/Units 11:48 11:48 12:00 WBC 5.2 (3.8-10.6) k/uL RBC 4.23 (3.80-5.40) m/uL Hgb 14.1 (11.4-16.0) gm/dL Hct 40.6 (34.0-46.0) % MCV 96.0 (80.0-100.0) fL MCH 33.3 (25.0-35.0) pg MCHC 34.7 (31.0-37.0) g/dL RDW 12.6 (11.5-15.5) % Plt Count 190 (150-450) k/uL Neutrophils % 63 % Lymphocytes % 24 % Monocytes % 6 % Eosinophils % 3 % Basophils % 3 % Neutrophils # 3.3 (1.3-7.7) k/uL Lymphocytes # 1.2 (1.0-4.8) k/uL Monocytes # 0.3 (0-1.0) k/uL Eosinophils # 0.2 (0-0.7) k/uL Basophils # 0.1 (0-0.2) k/uL Sodium 137 (137-145) mmol/L Potassium 3.8 (3.5-5.1) mmol/L Chloride 105 (98-107) mmol/L Carbon Dioxide 27 (22-30) mmol/L Anion Gap 5 mmol/L BUN 12 (7-17) mg/dL Creatinine 0.62 (0.52-1.04) mg/dL Est GFR (CKD-EPI)AfAm >90 (>60 ml/min/1.73 sqM) Est GFR (CKD-EPI)NonAf >90 (>60 ml/min/1.73 sqM) Glucose 92 (74-99) mg/dL Calcium 9.0 (8.4-10.2) mg/dL Magnesium 2.2 (1.6-2.3) mg/dL Total Bilirubin 0.6 (0.2-1.3) mg/dL AST 36 (14-36) U/L ALT 26 (4-34) U/L Alkaline Phosphatase 74 (38-126) U/L Total Protein 5.8 L (6.3-8.2) g/dL Albumin 3.7 (3.5-5.0) g/dL Urine Color Yellow Urine Appearance Cloudy H (Clear) Urine pH 5.5 (5.0-8.0) Ur Specific [place] 1.027 (1.001-1.035) Urine Protein Negative (Negative) Urine Glucose (UA) Negative (Negative) Urine Ketones Negative (Negative) Urine Blood Negative (Negative) Urine Nitrite Negative (Negative) Urine Bilirubin Negative (Negative) Urine Urobilinogen <2.0 (<2.0) mg/dL Ur Leukocyte Esterase Moderate H (Negative) Urine RBC 1 (0-5) /hpf Urine WBC 5 (0-5) /hpf Ur Squamous Epith Cells 8 H (0-4) /hpf Urine Bacteria Rare H (None) /hpf Hyaline Casts 4 H (0-2) /lpf Urine Mucus Rare H (None) /hpf Disposition Clinical Impression: Generalized seizure Disposition: ADMITTED IP TO THIS HOSP Is patient prescribed a controlled substance at d/c from ED?: No Referrals: Guzman Bowen MD [STAFF PHYSICIAN] - 1-2 days Decision Time: 13:44
[2019-06-13 11:57] LABS: Basophils # (A) 0.1 k/uL (0-0.2); Basophils % (A) 3 %; Eosinophils # (A) 0.2 k/uL (0-0.7); Eosinophils % (A) 3 %; HCT 40.6 % (34.0-46.0); HGB 14.1 gm/dL (11.4-16.0); Lymphocytes # (A) 1.2 k/uL (1.0-4.8); Lymphocytes % (A) 24 %; MCH 33.3 pg (25.0-35.0); MCHC 34.7 g/dL (31.0-37.0); Mean Platelet Volume 7.2; Monocytes # (A) 0.3 k/uL (0-1.0); Monocytes % (A) 6 %; Neutrophils # (A) 3.3 k/uL (1.3-7.7); Neutrophils % (A) 63 %; Platelet Count 190 k/uL (150-450); RBC 4.23 m/uL (3.80-5.40); RDW 12.6 % (11.5-15.5); WBC 5.2 k/uL (3.8-10.6)
[2019-06-13 12:06] LABS: ALT 26 U/L (4-34); AST 36 U/L (14-36); African American GFR (CKD) >90 (>60 ml/min/1.73 sqM); Albumin 3.7 g/dL (3.5-5.0); Alkaline Phosphatase 74 U/L (38-126); Anion Gap 5 mmol/L; Blood Urea Nitrogen 12 mg/dL (7-17); Carbon Dioxide 27 mmol/L (22-30); Chloride 105 mmol/L (98-107); Glucose 92 mg/dL (74-99); Magnesium 2.2 mg/dL (1.6-2.3); Non-African American GFR(CKD) >90 (>60 ml/min/1.73 sqM); Potassium 3.8 mmol/L (3.5-5.1); Sodium 137 mmol/L (137-145); Total Bilirubin 0.6 mg/dL (0.2-1.3); Total Protein 5.8 g/dL (6.3-8.2)
[2019-06-13 12:41] LABS: Appearance,Urine Cloudy (Clear); Bacteria,Urine Rare /hpf; Bilirubin,Urine Negative (Negative); Blood,Urine Negative (Negative); Color,Urine Yellow; Glucose,Urine (UA) Negative (Negative); Hyaline Casts,Urine 4 /lpf (0-2); Ketones,Urine Negative (Negative); Leukocyte Esterase,Urine Moderate (Negative); Mucus,Urine Rare /hpf; Nitrite,Urine Negative (Negative); PH, Urine 5.5 (5.0-8.0); Protein,Urine Negative (Negative); RBC,Urine 1 /hpf (0-5); Specific Gravity,Urine 1.027 (1.001-1.035); Squamous Epithelial Cell,Urine 8 /hpf (0-4); Urobilinogen,Urine <2.0 mg/dL (<2.0); WBC,Urine 5 /hpf (0-5)
[2019-06-13] MEDS ORDERED: NALOXONE 0.4 MG/ML 1 ML VIAL IV PRN (13:44)
[2019-06-13] MEDS ORDERED: SODIUM CHLORIDE 0.9% 1,000 ML IV SCH (13:45)
[2019-06-13] MEDS ORDERED: MIDAZOLAM 1 MG/ML 5 ML VIAL IV PRN (13:47)
[2019-06-13] MEDS ORDERED: MIDAZOLAM 2 MG/2 ML VIAL IV PRN (14:43)
[2019-06-13 15:23] LABS: Glucose,Whole Blood 104 mg/dL (75-99)
--- NOTE | 2019-06-13 16:54 | P.CNPUL ---
History of Present Illness Consult date: 06/13/19 Requesting physician: Jim Abreu Reason for consult: other (Status epilepticus) Chief complaint: Seizure History of present illness: This is a 63-year-old female with known history of seizure disorder since 2010. Patient has been over the years on multiple anticonvulsants therapy. She norm ally follows up with Dr. Bowen/neurologist, and she is to see Dr. Gonzalez for her seizures. Apparently it has been extremely difficult to control her seizures, and she had poor tolerance to loss of antiseizure medications. She cannot tolerate Ativan, she cannot tolerate Keppra, and she is maintained on briviact at 100 mg by mouth twice a day. The dose has been recently decreased. And she has been missing dosages. Yesterday the patient had several seizures, she had at least 3 grand mal seizures before EMS arrived to bring her to the ER today. The fire department staff witnessed a for seizure and EMS witnessed a 50 seizure that resolved with Versed. Patient was brought in and she was complaining of mild headache. Patient was admitted to the regular medical floor, and apparently the rapid response team responded to another seizure while she was on the floor. Patient was given Versed, controlled her seizure, and she was transferred to the ICU. Clearly the patient had a grand mal witnessed seizure while on the medical floor. Now she is on seizure precautions, neurology has been notified about her condition, and I was asked to see her mostly because she was in the ICU. During my evaluation, the patient was admitted drowsy, but she was arousable, in no distress, and relatively asymptomatic. After evaluating the patient, I recommended immediate notification to the neurologist to address loading the patient with anti seizure medication . Review of Systems Constitutional: No fever no chills no weight loss. Cardiac: Denied chest pain, denies palpitations, denies syncope. Pulmonary: Denies cough wheezing shortness of breath hemoptysis or chest pain. GI: Denies nausea vomiting abdominal pain melena or hematemesis. Genitourinary: Denies any dysuria frequency urgency hematuria Musculoskeletal: Denies any arthralgia or myalgia. Neurologic: As noted in HPI. Psychiatric: Denies any symptoms of active depression. Hematologic: Denies any clotting bleeding or bruising Skin: Denies any rashes or pruritus. Endocrine: Denies any symptoms to suggest hypothyroidism or diabetes. ENT: Denies any earache or sore throat or blurred vision. Past Medical History Past Medical History: Asthma, Coronary Artery Disease (CAD), Cancer, COPD, Hyperlipidemia, Hypertension, Seizure Disorder Additional Past Medical History / Comment(s): Last seizure APRIL 28 OR JUN 2018. Chronic pancreatitis. Kidney stones. Recurring hiatal hernia. Migraines. Heart murmur. Diverticulitis. Fatty liver. Pain clinic. Osteopenia. Cervical cancer history in 1988. History of Any Multi-Drug Resistant Organisms: None Reported Past Surgical History: Appendectomy, Bladder Surgery, Bowel Resection, Cholecystectomy, Heart Catheterization, Hysterectomy, Orthopedic Surgery Additional Past Surgical History / Comment(s): Surgery on right salivary gland. Right elbow nerve surgery. EGD. Colonoscopy. Justin fundoplasty. EMELYN 1988, bi lateral oophorectomy 1989. Bladder sling procedure. Exploratory laparscopies. Pain clinic procedures. laparoscopic adhesions Past Anesthesia/Blood Transfusion Reactions: Previous Problems w/ Anesthesia, Postoperative Nausea & Vomiting (PONV) Additional Past Anesthesia/Blood Transfusion Reaction / Comment(s): Takes long time to awaken. Past Psychological History: Anxiety, Panic Disorder Smoking Status: Former smoker Past Alcohol Use History: None Reported Past Drug Use History: None Reported - Past Family History Mother Sister(s) Family Medical History: Cancer Additional Family Medical History / Comment(s): COLON CANCER. GRANDFATHER ALSO HAD COLON CANCER Mother Family Medical History: Cancer Additional Family Medical History / Comment(s): Colon cancer Father Family Medical History: Hypertension Brother(s) Family Medical History: No Reported History Additional Family Medical History / Comment(s): Diverticulitis Sister(s) Family Medical History: Cancer Additional Family Medical History / Comment(s): Head and neck cancer, brain aneurysm Daughter(s) Family Medical History: No Reported History Son(s) Family Medical History: No Reported History Medications and Allergies Home Medications Medication Instructions Recorded Confirmed Type Brivaracetam [Briviact] 100 mg PO BID 08/12/16 06/13/19 History Montelukast [Singulair] 10 mg PO HS 09/17/17 06/13/19 History Nitroglycerin Sl Tabs [Nitrostat] 0.4 mg SUBLINGUAL Q5M PRN #25 tab 09/24/17 0 06/13/19 Rx Pantoprazole [Protonix] 40 mg PO QAM 12/03/17 06/13/19 History Albuterol Inhaler [Ventolin Hfa 1 - 2 puff INHALATION RT-Q6H PRN 08/10/18 06/13/19 History Inhaler] Aspirin 81 mg PO DAILY 08/10/18 06/13/19 History Desvenlafaxine Succinate [Pristiq] 25 mg PO HS 08/10/18 06/13/19 History Fluticasone Nasal [place] [Flonase 2 spray EA NOSTRIL DAILY 08/10/18 06/13/19 History Nasal [place]] Fluticasone/Salmeterol 1 puff INHALATION RT-BID 08/10/18 06/13/19 History [Fluticasone-Salmeterol 113-14] Hydrochlorothiazide 25 mg PO QAM 08/10/18 06/13/19 History Spironolactone 12.5 mg PO QAM 08/10/18 06/13/19 History Atorvastatin [Lipitor] 20 mg PO QAM 11/22/18 06/13/19 History ALPRAZolam [Xanax] 0.25 mg PO DAILY PRN 06/11/19 06/13/19 History Cyanocobalamin [Vitamin B-12] 500 mcg PO DAILY 06/13/19 06/13/19 History Diclofenac Sodium Gel [Voltaren 2 gm TOPICAL QID PRN 06/13/19 06/13/19 History Gel] Ipratropium-Albuterol Nebulize 3 ml INHALATION RT-QID 06/13/19 06/13/19 History [Duoneb 0.5 mg-3 mg/3 ml Soln] Potassium Chloride [Klor-Con 10] 10 meq PO DAILY 06/13/19 06/13/19 History Allergies Allergy/AdvReac Type Severity Reaction Status Date / Time adhesive Allergy Itching Verified 06/11/19 22:45 ciprofloxacin [From Cipro] Allergy Rash/Hives Verified 06/11/19 22:45 ciprofloxacin HCl Allergy Rash/Hives Verified 06/11/19 22:45 [From Cipro] clarithromycin [From Biaxin] Allergy Rash/Hives Verified 06/11/19 22:45 hydrocodone bitartrate Allergy Rash/Hives Verified 06/11/19 22:45 [From Vicodin] hydromorphone HCl Allergy Itching Verified 06/11/19 22:45 [From Dilaudid] levofloxacin [From Levaquin] Allergy Rash/Hives Verified 06/11/19 22:45 meloxicam [From Mobic] Allergy Rash/Hives Verified 06/11/19 22:45 oxycodone Allergy Rash/Hives Verified 06/11/19 22:45 Penicillins Allergy Swelling Verified 06/11/19 22:45 IN THROAT propoxyphene napsylate Allergy Rash/Hives Verified 06/11/19 22:45 [From Darvocet-N] dicyclomine [From Bentyl] AdvReac Confusion Verified 06/11/19 22:45 ipratropium [From Atrovent] AdvReac Chest Pain Verified 06/11/19 22:45 lorazepam [From Ativan] AdvReac seizures Verified 06/11/19 22:45 promethazine HCl AdvReac seizures Verified 06/11/19 22:45 [From Phenergan] tramadol HCl [From Ultram] AdvReac seizures Verified 06/11/19 22:45 DERMABOND Allergy Severe Rash/Hives Uncoded 06/11/19 22:45 Physical Exam Vitals: Vital Signs Temp Pulse Pulse Resp BP BP Pulse Ox 06/13/19 14:47 101 H 135/69 100 06/13/19 13:46 98.0 F 93 18 137/84 100 06/13/19 13:39 87 18 117/89 100 06/13/19 11:22 98.6 F 111 H 18 129/88 97 Intake and Output 06/13/19 06/13/19 06/13/19 06:59 14:59 22:59 Other: Weight 63.503 kg Physical Exam: Revealed a 63-year-old female in no distress. Head: Atraumatic, normocephalic. HEENT:[Neck is supple.] [No neck masses.] [No thyromegaly.] [No JVD.] PERRLA, EOMI, neck Chest: [Clear throughout, no crackles, no rhonchi, no wheezes.] Cardiac Exam: [Normal S1 and S2, no S3 gallop, no murmur.] Abdomen: [Soft, nontender, no megaly, no rebound, no guarding, normal bowel sounds.] Extremities: [No clubbing, no edema, no cyanosis.] Neurological Exam: [No focal neurologic deficit. Alert and oriented 3. Psychiatric: Normal mood, affect and normal mental status examination. Skin: No rashes. Lymphatics: No lymphadenopathy.] Results - Laboratory Findings CBC and BMP: 06/13/19 11:48 06/13/19 11:48 Abnormal lab findings: Abnormal Labs 06/13/19 06/13/19 06/13/19 11:48 12:00 15:22 POC Glucose (mg/dL) 104 H Total Protein 5.8 L Urine Appearance Cloudy H Ur Leukocyte Esterase Moderate H Ur Squamous Epith Cells 8 H Urine Bacteria Rare H Hyaline Casts 4 H Urine Mucus Rare H Assessment and Plan Assessment: Impression: Poorly controlled seizure disorder. Possible status epilepticus. Chronic obstructive pulmonary disease, presently inactive. Coronary artery disease Benign essential hypertension. History of chronic pancreatitis History of robotic laparoscopic exam for lysis of adhesions Recommendation: Continue to monitor in the ICU. Placed on seizure precautions. Suggest loading the patient with Dilantin or possibly valproic acid however the neurologist non licensed nuclear equipment operator will be notified to address this issue. Patient has poor tolerance to Ativan, Keppra, and she has multiple ALLERGIES as noted above. We'll continue to monitor in the ICU along with the neurology,, and admitting staff Resume home meds. Will follow-up Time with Patient: Greater than 30
[2019-06-13] MEDS ORDERED: MORPHINE SULFATE 2 MG/ML SYRINGE IVP PRN (18:25)
[2019-06-13] MEDS ORDERED: ONDANSETRON 4 MG/2 ML VIAL IVP PRN (18:25)
[2019-06-13] MEDS: BRIVARACETAM 100 MG PO SCH (20:13)
[2019-06-13] MEDS ORDERED: NON FORMULARY DRUG PO SCH (21:00)
--- NOTE | 2019-06-13 21:03 | P.HPIM ---
History of Present Illness H&P Date: 06/13/19 Chief Complaint: Seizure activity History of present complaint: This is a very pleasant 63-year-old patient, who follows with neurologist Dr. Bowen. Patient was diagnosed with epilepsy many years ago. Had been stable. Feels ago patient started having grand mal seizures. Patient been to different hospitals including [facility], [facility], [facility]. She was put on the c urrent antiepileptic medication called BRIVARACETUM. Few weeks ago the dose was cut back to 75 mg twice a day by her neurologist. On Thursday she started feeling an aura.: And she called her neurologist. He asked her to increase the dose back 100 mg twice a day.. That evening she forgot to take the dose. And remember the following day. Yesterday patient had 3 episodes of seizures in her home. One of the EMS. When she was admitted to the medical floor she had another. ER physician Dr. Calvillo called me. Neurology Dr. Deutsch was consulted from the ER. On arrival to the floor. Patient had another couple of episodes. Patient is given IV Versed and transferred to the ICU. When I saw the patient she is comfortable laying in bed and able to give me history. She denies any urinary frequency urgency or burning. No fever or chills. Denies any respiratory symptoms. Did eat a little bit of food in the evening. Review of systems: GEN.: Tired EYES: None HEENT: None NECK: None RESPIRATORY: None CARDIOVASCULAR: None GASTROINTESTINAL: None GENITOURINARY: None MUSCULOSKELETAL: None LYMPHATICS: None HEMATOLOGICAL: None PSYCHIATRY: None NEUROLOGICAL: As above Past medical history to include: Coronary artery disease, COPD, hypertension, hyperlipidemia, epilepsy, chronic pancreatitis, hiatal hernia, diverticulosis, fatty liver, anxiety disorder Social history: , smoked for 23 years a pack a day stopped in 1998. No alcohol. 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 EYES: Pupils equal. Conjunctiva normal. HEENT: External appearance of nose and ears normal, oral cavity grossly normal. NECK: JVD not raised; masses not palpable. HEART: First and second heart sounds are normal; no edema. LUNGS: Respiratory rate normal; clear to auscultation. ABDOMEN: Soft, nontender, liver spleen not palpable, no masses palpable. PSYCH: Alert and oriented x3; mood and affect normal. NEUROLOGICAL: Cranial nerves grossly intact; no facial asymmetry, power and sensation grossly intact. LYMPHATICS: No lymph nodes palpable in the axilla and neck INVESTIGATIONS, reviewed in the clinical context: White count 5.2 hemoglobin 14.1 platelets 190 potassium 3.8 bun 12 creatinine 0.62 UA-request is moderate, squamous epithelial cells 8, EKG tracing personally reviewed by me-sinus tachycardia Assessment: -Recurrent episodes of epilepsy, possible status epilepticus in a patient whose dose of anti-epilepsy medication was decreased recently. And patient missed one dose couple of days ago. Patient has received IV Versed. Admitted to the ICU for close monitoring. -Coronary artery disease -COPD in an ex-smoker -Hyperlipidemia -Essential hypertension -Chronic pancreatitis with-kidney stones asymptomatic -Fatty liver - Plan: Neurology Dr. Deutsch was consulted. Patient's home dose of antiepileptic medication has been resumed. 100 mg twice a day starting this evening. IV Versed when necessary. Seizure precautions. Other home medications will be resumed. Lovenox for DVT prophylaxis. Patient admitted to the ICU. 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 Care was discussed with the patient question answered. Past Medical History Past Medical History: Asthma, Coronary Artery Disease (CAD), Cancer, COPD, Hyperlipidemia, Hypertension, Seizure Disorder Additional Past Medical History / Comment(s): Last seizure APRIL 28 OR JUN 2018. Chronic pancreatitis. Kidney stones. Recurring hiatal hernia. Migra jarad. Heart murmur. Diverticulitis. Fatty liver. Pain clinic. Osteopenia. Cervical cancer history in 1988. History of Any Multi-Drug Resistant Organisms: None Reported Past Surgical History: Appendectomy, Bladder Surgery, Bowel Resection, Cholecystectomy, Heart Catheterization, Hysterectomy, Orthopedic Surgery Additional Past Surgical History / Comment(s): Surgery on right salivary gland. Right elbow nerve surgery. EGD. Colonoscopy. Justin fundoplasty. EMELYN 1988, bilateral oophorectomy 1989. Bladder sling procedure. Exploratory laparscopies. Pain clinic procedures. laparoscopic adhesions Past Anesthesia/Blood Transfusion Reactions: Previous Problems w/ Anesthesia, Postoperative Nausea & Vomiting (PONV) Additional Past Anesthesia/Blood Transfusion Reaction / Comment(s): Takes long time to awaken. Past Psychological History: Anxiety, Panic Disorder Smoking Status: Former smoker Past Alcohol Use History: None Reported Past Drug Use History: None Reported - Past Family History Mother Sister(s) Family Medical History: Cancer Additional Family Medical History / Comment(s): COLON CANCER. GRANDFATHER ALSO HAD COLON CANCER Mother Family Medical History: Cancer Additional Family Medical History / Comment(s): Colon cancer Father Family Medical History: Hypertension Brother(s) Family Medical History: No Reported History Additional Family Medical History / Comment(s): Diverticulitis Sister(s) Family Medical History: Cancer Additional Family Medical History / Comment(s): Head and neck cancer, brain aneurysm Daughter(s) Family Medical History: No Reported History Son(s) Family Medical History: No Reported History Medications and Allergies Home Medications Medication Instructions Recorded Confirmed Type Brivaracetam [Briviact] 100 mg PO BID 08/12/16 06/13/19 History Montelukast [Singulair] 10 mg PO HS 09/17/17 06/13/19 History Nitroglycerin Sl Tabs [Nitrostat] 0.4 mg SUBLINGUAL Q5M PRN #25 tab 09/24/17 06/13/19 Rx Pantoprazole [Protonix] 40 mg PO QAM 12/03/17 06/13/19 History Albuterol Inhaler [Ventolin Hfa 1 - 2 puff INHALATION RT-Q6H PRN 08/10/18 History Inhaler] Aspirin 81 mg PO DAILY 08/10/18 06/13/19 History Desvenlafaxine Succinate [Pristiq] 25 mg PO HS 08/10/18 06/13/19 History Fluticasone Nasal [place] [Flonase 2 spray EA NOSTRIL DAILY 08/10/18 06/13/19 History Nasal [place]] Fluticasone/Salmeterol 1 puff INHALATION RT-BID 08/10/18 06/13/19 History [Fluticasone-Salmeterol 113-14] Hydrochlorothiazide 25 mg PO QAM 08/10/18 06/13/19 History Spironolactone 12.5 mg PO QAM 08/10/18 06/13/19 History Atorvastatin [Lipitor] 20 mg PO QAM 11/22/18 06/13/19 History ALPRAZolam [Xanax] 0.25 mg PO DAILY PRN 06/11/19 06/13/19 History Cyanocobalamin [Vitamin B-12] 500 mcg PO DAILY 06/13/19 06/13/19 History Diclofenac Sodium Gel [Voltaren 2 gm TOPICAL QID PRN 06/13/19 06/13/19 History Gel] Ipratropium-Albuterol Nebulize 3 ml INHALATION RT-QID 06/13/19 06/13/19 History [Duoneb 0.5 mg-3 mg/3 ml Soln] Potassium Chloride [Klor-Con 10] 10 meq PO DAILY 06/13/19 06/13/19 History Allergies Allergy/AdvReac Type Severity Reaction Status Date / Time adhesive Allergy Itching Verified 06/11/19 22:45 ciprofloxacin [From Cipro] Allergy Rash/Hives Verified 06/11/19 22:45 ciprofloxacin HCl Allergy Rash/Hives Verified 06/11/19 22:45 [From Cipro] clarithromycin [From Biaxin] Allergy Rash/Hives Verified 06/11/19 22:45 hydrocodone bitartrate Allergy Rash/Hives Verified 06/11/19 22:45 [From Vicodin] hydromorphone HCl Allergy Itching Verified 06/11/19 22:45 [From Dilaudid] levofloxacin [From Levaquin] Allergy Rash/Hives Verified 06/11/19 22:45 meloxicam [From Mobic] Allergy Rash/Hives Verified 06/11/19 22:45 oxycodone Allergy Rash/Hives Verified 06/11/19 22:45 Penicillins Allergy Swelling Verified 06/11/19 22:45 IN THROAT propoxyphene napsylate Allergy Rash/Hives Verified 06/11/19 22:45 [From Darvocet-N] dicyclomine [From Bentyl] AdvReac Confusion Verified 06/11/19 22:45 ipratropium [From Atrovent] AdvReac Chest Pain Verified 06/11/19 22:45 lorazepam [From Ativan] AdvReac seizures Verified 06/11/19 22:45 promethazine HCl AdvReac seizures Verified 06/11/19 22:45 [From Phenergan] tramadol HCl [From Ultram] AdvReac seizures Verified 06/11/19 22:45 DERMABOND Allergy Severe Rash/Hives Uncoded 06/11/19 22:45 Physical Exam Vitals: Vital Signs Temp Pulse Pulse Resp BP BP Pulse Ox 06/13/19 18:00 105 H 16 122/78 99 06/13/19 17:00 92 12 128/79 100 06/13/19 16:00 97 18 128/78 100 06/13/19 15:18 98.6 F 101 H 12 137/84 100 06/13/19 14:47 101 H 135/69 100 06/13/19 13:46 98.0 F 93 18 137/84 100 06/13/19 13:39 87 18 117/89 100 06/13/19 11:22 98.6 F 111 H 18 129/88 97 Intake and Output 06/13/19 06/13/19 06/13/19 06:59 14:59 22:59 Intake Total 40 Balance 40 Intake: IV 40 Sodium Chloride 0.9% 1, 40 000 ml @ 100 mls/hr IV . Q10H STA Rx#:[id number] Other: # Voids 1 Weight 63.503 kg Results CBC & Chem 7: 06/13/19 11:48 06/13/19 11:48 Labs: Abnormal Lab Results - Last 24 Hours (Table) 06/13/19 06/13/19 06/13/19 Range/Units 11:48 12:00 15:22 POC Glucose (mg/dL) 104 H (75-99) mg/dL Total Protein 5.8 L (6.3-8.2) g/dL Urine Appearance Cloudy H (Clear) Ur Leukocyte Esterase Moderate H (Negative) Ur Squamous Epith Cells 8 H (0-4) /hpf Urine Bacteria Rare H (None) /hpf Hyaline Casts 4 H (0-2) /lpf Urine Mucus Rare H (None) /hpf Thrombosis Risk Factor Assmnt - Choose All That Apply Any of the Below Risk Factors Present?: Yes Each Factor Represents 1 point: Abnormal pulmonary function (COPD) Other Risk Factors: Yes Each Risk Factor Represents 2 Points: Age 61-74 years Other congenital or acquired thrombophilia - If yes, enter type in comment: No Thrombosis Risk Factor Assessment Total Risk Factor Score: 3 Thrombosis Risk Factor Assessment Level: Moderate Risk
[2019-06-14] MEDS: ACETAMINOPHEN TAB 325 MG TAB PO PRN ×2 (05:25→14:11)
[2019-06-14 05:29] LABS: HGB 14.1 gm/dL (11.4-16.0); MCH 32.3 pg (25.0-35.0); MCHC 33.5 g/dL (31.0-37.0); MCV 96.2 fL (80.0-100.0); Mean Platelet Volume 7.4; Platelet Count 234 k/uL (150-450); RBC 4.36 m/uL (3.80-5.40); RDW 12.7 % (11.5-15.5); WBC 5.9 k/uL (3.8-10.6)
[2019-06-14 05:43] LABS: African American GFR (CKD) >90 (>60 ml/min/1.73 sqM); Anion Gap 2 mmol/L; Blood Urea Nitrogen 11 mg/dL (7-17); Calcium 8.8 mg/dL (8.4-10.2); Carbon Dioxide 31 mmol/L (22-30); Chloride 102 mmol/L (98-107); Glucose 89 mg/dL (74-99); Non-African American GFR(CKD) >90 (>60 ml/min/1.73 sqM); Potassium 3.1 mmol/L (3.5-5.1); Sodium 135 mmol/L (137-145)
[2019-06-14] MEDS: POTASSIUM CHLORIDE ER 20 MEQ TAB.ER PO SCH ×2 (06:31→07:06)
[2019-06-14] MEDS ORDERED: ALPRAZolam 0.25 MG TAB PO PRN (07:10)
[2019-06-14] MEDS ORDERED: DICLOFENAC SODIUM GEL 100 GM TUBE TOPICAL PRN (07:10)
[2019-06-14] MEDS ORDERED: ALBUTEROL NEBULIZED 2.5 MG/3 ML INHALATION PRN (07:10)
[2019-06-14] MEDS ORDERED: PANTOPRAZOLE 40 MG TABLET PO SCH (07:30)
[2019-06-14 08:03] VITALS: TEMP 98.4
[2019-06-14] MEDS: BRIVARACETAM 100 MG PO SCH (08:12)
[2019-06-14] MEDS: IPRATROPIUM-ALBUTEROL 3 ML NEB INHALATION SCH ×3 (08:56→15:45)
[2019-06-14] MEDS ORDERED: ASPIRIN 81 MG PO SCH (09:00)
[2019-06-14] MEDS ORDERED: CYANOCOBALAMIN 500 MCG TAB PO SCH (09:00)
[2019-06-14] MEDS ORDERED: ATORVASTATIN 20 MG TAB PO SCH (09:00)
[2019-06-14] MEDS ORDERED: POTASSIUM CHLORIDE ER 10 MEQ TAB.ER.PRT PO SCH (09:00)
[2019-06-14] MEDS ORDERED: HYDROCHLOROTHIAZIDE 25 MG TAB PO SCH (09:00)
[2019-06-14] MEDS ORDERED: SPIRONOLACTONE 25 MG TAB PO SCH (09:00)
[2019-06-14] MEDS ORDERED: FLUTICASONE 50MCG/SPRAY NASAL 16GM EA NOSTRIL SCH (09:00)
--- NOTE | 2019-06-14 12:37 | P.CNNES ---
History of Present Illness Consult date: 06/14/19 Reason for Consult: recurrent seizures History of Present Illness: HISTORY OF PRESENT ILLNESS: Thank you for allowing me to evaluate Ms. Nora Colindres. Ms. Colindres is a 63 year-old woman with PMhx of asthma, CAD, COPD, HLD, HTN, seizure disorder, chronic pancreatitis, kidney stones, migraines, diverticulitis, cervical cancer (in 1988), anxiety, panic disorder, who presented to [facility] for repeated seizure episodes. Patient's seizure med dose was decreased recently but increased back to her usual as patient was having auras. Unfortunately, patient missed her doses on Thursday and when patient came to ED on Thursday06/13/2019, patient had had 3 seizures prior to EMS arrival and then 2 additional after EMS arrival, which resolved with versed. Patient was admitted to Med/Surg unit when she had another episode that lasted with intermittent shaking for about 6 minutes. Given versed. Patient has not had additional episodes since yesterday. Patient reports slight headache and reported nausea and dizziness during evaluation. Patient states that she had seizures at age 6 and stopped at age 19 (petit mal, blanking out), and then she started having GTC seizures ~10 years ago. patient had been on briviact for almost 3 years, but she felt like her mind was slowing down, so she spoke to her neurologist, Dr. Bowen, and started a lower dose at 75mg BID the day after [place] in 2018. PAST MEDICAL HISTORY: asthma, CAD, COPD, HLD, HTN, seizure disorder, chronic pancreatitis, kidney stones, migraines, diverticulitis, cervical cancer (in 1988), anxiety, panic disorder PAST SURGICAL HISTORY: appendectomy, cholecystectomy, hysterectomy, R elbow nerve surgery, justin fundoplasty, bladder sling procedure, exploratory laparascopies HOME MEDICATIONS: Briviact, Singulair, protonix, desvenlafaxine, aspirin, spironolactone, HCTZ, atorvastatin, Vitamin B12, KCl ALLERGIES: Please see list below SOCIAL HISTORY: Former smoker FAMILY HISTORY: Mother and grandfather with colon cancer. Father with HTN. Sister with head and neck cancer, brain aneurysm REVIEW OF SYSTEMS: The 14 systems are reviewed and no additional points are identified compared to the review of systems documented history and physical PHYSICAL EXAMINATION: VITAL SIGNS: T 98.4 HR 80 RR 12 BP 109/60 O2 sat 94% on RA GEN.: NAD, pleasant and cooperative HEENT: NCAT, sclera without icterus NECK: Supple SKIN AND EXTREMITIES: Warm to touch, no edema NEURO: MENTAL STATUS: Patient alert and oriented to self, place, time. Able to name the current president. Speech fluent, able to name and repeat, following all commands readily. No right and left disorientation, neglect. CRANIAL NERVES II THROUGH XII: II: Pupils are equal and reactive to light symmetrically. Visual chavarria are intact to confrontation. III, IV, : No ptosis. Extraocular movements full. No nystagmus. V: Facial sensation intact from V1-3. VII. No clear facial asymmetry. VIII: Hearing intact to finger rub bilaterally. IX, X: Symmetric palate elevation. XI: Shoulder shrug intact. XII: Tongue midline without fasciculation or atrophy. MOTOR: Normal bulk/tone. No pronator drift or tremor. Strength is 5/5 throughout all 4 extremities. SENSORY: Intact to light touch in all 4 extremities. REFLEXES: 2+ throughout. Toes are downgoing. COORDINATION: Finger to nose intact. No dysmetria. GAIT: not assessed DIAGNOSTIC TESTING: LABORATORY: WBC 5.9 Hgb 14.1 Platelet 234 Na 135 K 3.1 Cl 102 CO2 31 BUN 11 Cr 0.58 glucose 89 AST 36 ALT 26 AlkPhos 74 Urinalysis moderate leukesterase IMAGING: CT Head w/o contrast 06/14/2018: No acute intracranial hemorrhage or midline shift. There is mild to mod diffuse age-related cerebral atrophy most prominent over the b/l frontal lobes redemonstrated. No significant change from CT head in 02/2017. ASSESSMENT: 63 year-old woman with PMhx of asthma, CAD, COPD, HLD, HTN, seizure disorder, chronic pancreatitis, kidney stones, migraines, diverticulitis, cervical cancer (in 1988), anxiety, panic disorder, who presented to [facility] for repeated seizure episodes. Patient likely had increased seizure episodes in the setting of decreased Briviact dose along with missing a dose. Patient seizure free for ~24 hours now. Even after her seizures, patient's mental status returned to baseline. RECOMMENDATIONS: 1. continue Briviact 100mg BID 2. patient will follow-up with Dr. Bowen, her neurologist, within 2-3 weeks 3. Neurology will sign off at this time. Past Medical History Past Medical History: Asthma, Coronary Artery Disease (CAD), Cancer, COPD, Hyperlipidemia, Hypertension, Seizure Disorder Additional Past Medical History / Comment(s): Last seizure APRIL 28 OR JUN 2018. Chronic pancreatitis. Kidney stones. Recurring hiatal hernia. Migraines. Heart murmur. Diverticulitis. Fatty liver. Pain clinic. Osteopenia. Cervical cancer history in 1988. History of Any Multi-Drug Resistant Organisms: None Reported Past Surgical History: Appendectomy, Bladder Surgery, Bowel Resection, Charu cystectomy, Heart Catheterization, Hysterectomy, Orthopedic Surgery Additional Past Surgical History / Comment(s): Surgery on right salivary gland. Right elbow nerve surgery. EGD. Colonoscopy. Justin fundoplasty. EMELYN 1988, bilateral oophorectomy 1989. Bladder sling procedure. Exploratory laparscopies. Pain clinic procedures. laparoscopic adhesions Past Anesthesia/Blood Transfusion Reactions: Previous Problems w/ Anesthesia, Postoperative Nausea & Vomiting (PONV) Additional Past Anesthesia/Blood Transfusion Reaction / Comment(s): Takes long time to awaken. Past Psychological History: Anxiety, Panic Disorder Smoking Status: Former smoker Past Alcohol Use History: None Reported Past Drug Use History: None Reported - Past Family History Mother Sister(s) Family Medical History: Cancer Additional Family Medical History / Comment(s): COLON CANCER. GRANDFATHER ALSO HAD COLON CANCER Mother Family Medical History: Cancer Additional Family Medical History / Comment(s): Colon cancer Father Family Medical History: Hypertension Brother(s) Family Medical History: No Reported History Additional Family Medical History / Comment(s): Diverticulitis Sister(s) Family Medical History: Cancer Additional Family Medical History / Comment(s): Head and neck cancer, brain aneurysm Daughter(s) Family Medical History: No Reported History Son(s) Family Medical History: No Reported History Medications and Allergies Home Medications Medication Instructions Recorded Confirmed Type Brivaracetam [Briviact] 100 mg PO BID 08/12/16 06/13/19 History Montelukast [Singulair] 10 mg PO HS 09/17/17 06/13/19 History Nitroglycerin Sl Tabs [Nitrostat] 0.4 mg SUBLINGUAL Q5M PRN #25 tab 09/24/17 06/13/19 Rx Pantoprazole [Protonix] 40 mg PO QAM 12/03/17 06/13/19 History Albuterol Inhaler [Ventolin Hfa 1 - 2 puff INHALATION RT-Q6H PRN 08/10/18 06/13/19 History Inhaler] Aspirin 81 mg PO DAILY 08/10/18 06/13/19 History Desvenlafaxine Succinate [Pristiq] 25 mg PO HS 08/10/18 06/13/19 History Fluticasone Nasal [place] [Flonase 2 spray EA NOSTRIL DAILY 08/10/18 06/13/19 History Nasal [place]] Fluticasone/Salmeterol 1 puff INHALATION RT-BID 08/10/18 06/13/19 History [Fluticasone-Salmeterol 113-14] Hydrochlorothiazide 25 mg PO QAM 08/10/18 06/13/19 History Spironolactone 12.5 mg PO QAM 08/10/18 06/13/19 History Atorvastatin [Lipitor] 20 mg PO QAM 11/22/18 06/13/19 History ALPRAZolam [Xanax] 0.25 mg PO DAILY PRN 06/11/19 06/13/19 History Cyanocobalamin [Vitamin B-12] 500 mcg PO DAILY 06/13/19 06/13/19 History Diclofenac Sodium Gel [Voltaren 2 gm TOPICAL QID PRN 06/13/19 06/13/19 History Gel] Ipratropium-Albuterol Nebulize 3 ml INHALATION RT-QID 06/13/19 06/13/19 History [Duoneb 0.5 mg-3 mg/3 ml Soln] Potassium Chloride [Klor-Con 10] 10 meq PO DAILY 06/13/19 06/13/19 History Allergies Allergy/AdvReac Type Severity Reaction Status Date / Time adhesive Allergy Itching Verified 06/11/19 22:45 ciprofloxacin [From Cipro] Allergy Rash/Hives Verified 06/11/19 22:45 ciprofloxacin HCl Allergy Rash/Hives Verified 06/11/19 22:45 [From Cipro] clarithromycin [From Biaxin] Allergy Rash/Hives Verified 06/11/19 22:45 hydrocodone bitartrate Allergy Rash/Hives Verified 06/11/19 22:45 [From Vicodin] hydromorphone HCl Allergy Itching Verified 06/11/19 22:45 [From Dilaudid] levofloxacin [From Levaquin] Allergy Rash/Hives Verified 06/11/19 22:45 meloxicam [From Mobic] Allergy Rash/Hives Verified 06/11/19 22:45 oxycodone Allergy Rash/Hives Verified 06/11/19 22:45 Penicillins Allergy Swelling Verified 06/11/19 22:45 IN THROAT propoxyphene napsylate Allergy Rash/Hives Verified 06/11/19 22:45 [From Darvocet-N] dicyclomine [From Bentyl] AdvReac Confusion Verified 06/11/19 22:45 ipratropium [From Atrovent] AdvReac Chest Pain Verified 06/11/19 22:45 lorazepam [From Ativan] AdvReac seizures Verified 06/11/19 22:45 promethazine HCl AdvReac seizures Verified 06/11/19 22:45 [From Phenergan] tramadol HCl [From Ultram] AdvReac seizures Verified 06/11/19 22:45 DERMABOND Allergy Severe Rash/Hives Uncoded 06/11/19 22:45 Physical Examination - Vital Signs Vital Signs: Vital Signs Temp Pulse Pulse Pulse Resp BP BP 06/14/19 09:00 84 10 L 112/60 06/14/19 08:00 98.4 F 80 12 109/60 06/14/19 07:00 76 11 L 114/65 06/14/19 06:00 82 13 112/71 06/14/19 05:00 89 11 L 104/58 06/14/19 04:00 98.3 F 81 91 12 109/63 06/14/19 03:00 86 15 108/55 06/14/19 02:00 84 16 114/57 06/14/19 01:00 80 16 120/86 06/14/19 00:11 87 14 06/14/19 00:00 98.3 F 95 84 16 115/69 06/13/19 23:00 85 16 133/90 06/13/19 22:00 92 10 L 129/82 06/13/19 21:00 95 15 119/67 06/13/19 20:31 06/13/19 20:00 98.8 F 105 H 89 23 129/81 06/13/19 18:00 105 H 16 122/78 06/13/19 17:00 92 12 128/79 06/13/19 16:00 97 18 128/78 06/13/19 15:18 98.6 F 101 H 12 137/84 06/13/19 14:47 101 H 135/69 06/13/19 13:46 98.0 F 93 18 137/84 06/13/19 13:39 87 18 117/89 06/13/19 11:22 98.6 F 111 H 18 129/88 Pulse Ox 06/14/19 09:00 95 06/14/19 08:00 94 L 06/14/19 07:00 93 L 06/14/19 06:00 96 06/14/19 05:00 94 L 06/14/19 04:00 94 L 06/14/19 03:00 94 L 06/14/19 02:00 94 L 06/14/19 01:00 93 L 06/14/19 00:11 95 06/14/19 00:00 95 06/13/19 23:00 95 06/13/19 22:00 96 06/13/19 21:00 95 06/13/19 20:31 99 06/13/19 20:00 99 06/13/19 18:00 99 06/13/19 17:00 100 06/13/19 16:00 100 06/13/19 15:18 100 06/13/19 14:47 100 06/13/19 13:46 100 06/13/19 13:39 100 06/13/19 11:22 97 Intake and Output 06/13/19 06/14/19 06/14/19 22:59 06:59 14:59 Intake Total 100 160 60 Output Total 250 0 Balance 100 -90 60 Intake: IV 100 160 20 Sodium Chloride 0.9% 1, 100 160 20 000 ml @ 100 mls/hr IV . Q10H STA Rx#:[id number] Intake, IV Titration 40 Amount Sodium Chloride 0.9% 1, 40 000 ml @ 20 mls/hr IV . Q24H FLAKITA Rx#:[id number] Output: Urine 250 0 Other: Voiding Method Bedside Commode # Voids 0 1 1 Weight 63.3 kg Results - Laboratory Findings CBC and BMP: 06/14/19 04:51 06/14/19 11:52 Abnormal Lab Findings: Abnormal Labs 06/13/19 06/13/19 06/13/19 11:48 12:00 15:22 Sodium Potassium Carbon Dioxide POC Glucose (mg/dL) 104 H Total Protein 5.8 L Urine Appearance Cloudy H Ur Leukocyte Esterase Moderate H Ur Squamous Epith Cells 8 H Urine Bacteria Rare H Hyaline Casts 4 H Urine Mucus Rare H 06/14/19 04:51 Sodium 135 L Potassium 3.1 L Carbon Dioxide 31 H POC Glucose (mg/dL) Total Protein Urine Appearance Ur Leukocyte Esterase Ur Squamous Epith Cells Urine Bacteria Hyaline Casts Urine Mucus
[2019-06-14 13:02] VITALS: BP 130/90; PULSE 98; RESP 11
--- NOTE | 2019-06-14 13:05 | CONS ---
CONSULTATION CHIEF COMPLAINT: Prolonged QT interval. Nora is a 63-year-old lady with history of seizure disorder, who is admitted to the hospital with recurrent episodes of seizures. Cardiology had been consulted because of prolonged QT interval. There is no prior cardiac history. There is no history of coronary artery disease, congestive heart failure, or syncope. There is no family history of premature or sudden . There is no prior history of valvular heart disease. Patient's EKG shows prolonged QT interval, but I went back and looked at all her EKGs. She has always had prolonged QT interval. It could be related to the medications that she is on. She is on Pristiq and an antiseizure medication and the Protonix. Try to avoid QT prolonging drugs wherever there are safer alternatives, avoid and will continue to monitor her meticulously. PAST MEDICAL HISTORY: Significant for seizure disorder and hypertension along with COPD. MEDICATIONS: At home include K-Dur, DuoNeb, hydrochlorothiazide, fluticasone, Flonase, Brevia, Lipitor aspirin, albuterol, Xanax, Protonix, Singulair, and Pristiq. She has multiple drug allergies, they are charted and I have reviewed them. FAMILY HISTORY: Negative for premature or sudden . SOCIAL HISTORY: She denies smoking, ETOH abuse or drug abuse. REVIEW OF SYSTEMS: HEENT: Unremarkable. CARDIAC: As described above. RESPIRATORY: As described above. GI: Negative. GENITOURINARY: Negative. ALLERGY/IMMUNOLOGY: Negative. SKIN: Negative. MUSCULOSKELETAL: Negative. ENDOCRINE: Negative. DERMATOLOGY: Negative. CONSTITUTIONAL: Negative. ONCOLOGICAL: Negative. SQL DBA: Significant for seizure disorder. On exam, patient is comfortable at rest. Afebrile. Vital signs are stable. There is no jugular venous distention. Carotid upstroke is normal. There is no bruit. Chest exam reveals good air entry bilaterally. Heart exam reveals first and second heart sounds. No gallop. No murmur. No rub. Abdomen is soft, nontender. Exam of the extremities did not reveal any edema. Peripheral pulses are felt. LABS: Show that the hemoglobin is 14.1, platelet count is 230, potassium is 3.1, creatinine is 0.5. ASSESSMENT: 1. Asymptomatic prolonged QT interval, probably drug induced. 2. Seizure disorder. 3. Chronic obstructive pulmonary disease. PLAN: Please avoid QT prolonging drugs wherever you can, supplement the potassium. Continue to watch her on telemetry. MMODL / IJN: [id number] /
--- NOTE | 2019-06-14 13:19 | P.PN ---
Subjective Progress Note Date: 06/14/19 Principal diagnosis: Poorly controlled seizures This is a 63-year-old female with known history of seizure disorder since 2010. Patient has been over the years on multiple anticonvulsants therapy. She normally follows up with Dr. Bowen/neurologist, and she is to see Dr. Gonzalez for her seizures. Apparently it has been extremely difficult to control her seizures, and she had poor tolerance to loss of antiseizure medications. She cannot tolerate Ativan, she cannot tolerate Keppra, and she is maintained on briviact at 100 mg by mouth twice a day. The dose has been recently decreased. And she has been missing dosages. Yesterday the patient had several seizures, she had at least 3 grand mal seizures before EMS arrived to bring her to the ER today. The fire department staff witnessed a for seizure and EMS witnessed a 50 seizure that resolved with Versed. Patient was brought in and she was complaining of mild headache. Patient was admitted to the regular medical floor, and apparently the rapid response team responded to another seizure while she was on the floor. Patient was given Versed, controlled her seizure, and she was transferred to the ICU. Clearly the patient had a grand mal witnessed seizure while on the medical floor. Now she is on seizure precautions, neurology has been notified about her condition, and I was asked to see her mostly because she was in the ICU. During my evaluation, the patient was admitted drowsy, but she was arousable, in no distress, and relatively asymptomatic. After evaluating the patient, I recommended immediate n otification to the neurologist to address loading the patient with anti seizure medication . Patient was reevaluated today on 06/14/2019, has been in the ICU for the last 24 hours, seizure free since admission to the ICU yesterday. Her seizure medication dose has been increased as per neurology on the case. Did not feel the need of adding more seizure medications. Obviously her seizures seem to be fairly well controlled for the time being. Hence the patient could be transferred out of the ICU today. And monitored for the next 24 hours. And if she remains seizure-free, could even consider discharge planning in the next 24 hours. The patient will need to follow-up with her neurologist on outpatient basis once discharge. Labs today are basically unremarkable she had low potassium and that has been already corrected. She is asymptomatic except for vague headaches. Objective - Vital Signs Vital signs: Vital Signs Temp 98.4 F 06/14/19 08:00 Pulse 98 06/14/19 13:00 Resp 11 L 06/14/19 13:00 BP 130/90 06/14/19 13:00 Pulse Ox 95 06/14/19 12:00 Intake & Output 06/13/19 06/14/19 06/14/19 18:59 06:59 18:59 Intake Total 40 220 140 Output Total 250 0 Balance 40 -30 140 Weight 63.503 kg 63.3 kg Intake: IV 40 220 20 Sodium Chloride 0.9% 1, 40 220 20 000 ml @ 100 mls/hr IV . Q10H STA Rx#:[id number] Intake, IV Titration 120 Amount Sodium Chloride 0.9% 1, 120 000 ml @ 20 mls/hr IV . Q24H FLAKITA Rx#:[id number] Output: Urine 250 0 Other: Voiding Method Bedside Commode # Voids 1 1 0 - Exam Physical Exam: Revealed a 63-year-old female in no distress. Head: Atraumatic normocephalic. HEENT:[Neck is supple.] [No neck masses.] [No thyromegaly.] [No JVD.] Chest: [Clear throughout, no crackles, no rhonchi, no wheezes.] Cardiac Exam: [Normal S1 and S2, no S3 gallop, no murmur.] Abdomen: [Soft, nontender, no megaly, no rebound, no guarding, normal bowel sounds.] Extremities: [No clubbing, no edema, no cyanosis.] Neurological Exam: [No focal neurologic deficit.] Alert and oriented 3. Psychiatric: Normal mood, affect and normal mental status examination. Musculoskeletal: No deformities noted limitation in range of motion. Skin: No rashes. Lymphatics: No lymphadenopathy. - Labs CBC & Chem 7: 06/14/19 04:51 06/14/19 11:52 Labs: Abnormal Lab Results - Last 24 Hours (Table) 06/13/19 06/14/19 Range/Units 15:22 04:51 Sodium 135 L (137-145) mmol/L Potassium 3.1 L (3.5-5.1) mmol/L Carbon Dioxide 31 H (22-30) mmol/L POC Glucose (mg/dL) 104 H (75-99) mg/dL Assessment and Plan Assessment: Impression: Poorly controlled seizure disorder. Mostly related to the decrease in her antiseizure medications/briviact Chronic obstructive pulmonary disease, inactive Coronary artery disease presently inactive. Benign essential hypertension History of chronic pancreatitis History of laparoscopic surgery for lysis of adhesions. Recommendation: Considering the patient has been seizure-free since admission to the ICU and since the dose of her seizure medication has been adjusted. Patient to be transferred out of the ICU to a regular medical floor. Continue seizure precautions. Resume home meds. We'll continue to follow. Time with Patient: Less than 30
--- NOTE | 2019-06-14 19:35 | ECHOF ---
Referral Reason:QT prolonged MEASUREMENTS -------- HEIGHT: 162.6 cm WEIGHT: 63.0 kg BP: 130/94 IVSd: 1.4 cm (0.6 - 1.1) LVIDd: 3.4 cm (3.9 - 5.3) LVPWd: 1.1 cm (0.6 - 1.1) IVSs: 1.5 cm LVIDs: 2.8 cm LVPWs: 1.2 cm LA Diam: 3.2 cm (2.7 - 3.8) LAESV Index (A-L): 16.03 ml/m MV EXCURSION: 13.189 mm (> 18.000) MV EF SLOPE: 89 mm/s (70 - 150) EPSS: 0.2 cm MV E Braulio: 0.62 m/s MV DecT: 198 ms MV A Braulio: 0.92 m/s MV E/A Ratio: 0.68 RAP: 5.00 mmHg RVSP: 18.48 mmHg FINDINGS -------- Undetermined rhythm. This was a technically adequate study. The left ventricular size is normal. There is mild concentric left ventricular hypertrophy. There is normal global left ventricular contractility. Overall left ventricular systolic function is nor mal with, an EF between 55 - 60 %. The diastolic filling pattern is normal for the age of the patie nt 14.31. The right ventricle is normal in size. The left atrial size is normal. The right atrial size is normal. There is mild aortic valve sclerosis. There is no evidence of aortic regurgitation. Mild mitral annular calcification present. Mild mitral regurgitation is present. Mild tricuspid regurgitation present. Right ventricular systolic pressure is normal at < 35 mmHg. There is no evidence of pulmonary hypertension. The pulmonic valve was not well visualized. The aortic root size is normal. Echo free space indicative of a pericardial fat pad. CONCLUSIONS -------- 1. Undetermined rhythm. 2. This was a technically adequate study. 3. The left ventricular size is normal. 4. There is mild concentric left ventricular hypertrophy. 5. There is normal global left ventricular contractility. 6. Overall left ventricular systolic function is normal with, an EF between 55 - 60 %. 7. The diastolic filling pattern is normal for the age of the patient 14.31 8. The right ventricle is normal in size. 9. The left atrial size is normal. 10. The right atrial size is normal. 11. There is mild aortic valve sclerosis. 12. Mild mitral annular calcification present. 13. Mild mitral regurgitation is present. 14. Mild tricuspid regurgitation present. 15. Right ventricular systolic pressure is normal at < 35 mmHg. 16. There is no evidence of pulmonary hypertension. 17. The pulmonic valve was not well visualized. 18. The aortic root size is normal. 19. Echo free space indicative of a pericardial fat pad. [employer] INTERN: Monisha Marie RDCS
[2019-06-14] MEDS ORDERED: MONTELUKAST 10 MG TAB PO SCH (21:00)
--- NOTE | 2019-06-15 00:04 | P.DS ---
Providers Date of admission: 06/13/19 13:44 Expected date of discharge: 06/14/19 Attending physician: Jim Abreu Consults: 06/13/19 13:45 Consult Physician Urgent Consulting Provider: Melita Deutsch Consult Reason/Comments: Current seizure Do you want consulting provider notified?: Yes 06/13/19 13:48 Consult Physician Urgent Consulting Provider: Earlene Pardo Consult Reason/Comments: Long QTc Do you want consulting provider notified?: Yes Primary care physician: Alex Ly [facility] Hospital Course: Chief Complaint: Seizure activity Hospital course: This is a very pleasant 63-year-old patient, who follows with neurologist Dr. Bowen. Patient was diagnosed with epilepsy many years ago. Had been stable. Feels ago patient started having grand mal seizures. Patient been to different hospitals including [facility]. She was put on the current antiepileptic medication called BRIVARACETUM. Few weeks ago the dose was cut back to 75 mg twice a day by her neurologist. On Thursday she started feeling an aura.: And she called her neurologist. He asked her to increase the dose back 100 mg twice a day.. That evening she forgot to take the dose. And remember the following day. Yesterday patient had 3 episodes of seizures in her home. One of the EMS. When she was admitted to the medical floor she had another. ER physician Dr. Calvillo called me. Neurology Dr. Deutsch was consulted from the ER. On arrival to the floor. Patient had another couple of episodes. Patient is given IV Versed and transferred to the ICU. When I saw the patient she is comfortable laying in bed and able to give me history. She denies any urinary frequency urgency or burning. No fever or chills. Denies any respiratory symptoms. Did eat a little bit of food in the evening. Patient was resumed on a home dose of AED. No further episodes and ICU. Did well. Doing well today also. I'll keep her neurology to be discharged. Chen ent will follow-up with Dr. Bowen outpatient. Also seen by Dr. Precious Monreal from cardiology for a prolonged QT interval. Which patient said in the past. Had a 2-D echocardiogram located be discharged. Consultants: Dr. Deutsch from neurology Dr. Fairbanks from technical sales representatives Physical examination: VITAL SIGNS: 98.4, 80, 20, 109/60, 94% room air GENERAL: BMI 24, comfortable EYES: Pupils equal. Conjunctiva normal. HEENT: External appearance of nose and ears normal, oral cavity grossly normal. NECK: JVD not raised; masses not palpable. HEART: First and second heart sounds are normal; no edema. LUNGS: Respiratory rate normal; clear to auscultation. ABDOMEN: Soft, nontender, liver spleen not palpable, no masses palpable. PSYCH: Alert and oriented x3; mood and affect normal. NEUROLOGICAL: Cranial nerves grossly intact; no facial asymmetry, power and sensation grossly intact. INVESTIGATIONS, reviewed in the clinical context: White count 5.9. 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 -Coronary artery disease -COPD in an ex-smoker -Hyperlipidemia -Essential hypertension -Chronic pancreatitis with-kidney stones asymptomatic -Fatty liver -Prolonged QT interval - Disposition: Home Plan - Discharge Summary Discharge Rx Participant: No New Discharge Prescriptions: Continue Brivaracetam [Briviact] 100 mg PO BID Montelukast [Singulair] 10 mg PO HS Nitroglycerin Sl Tabs [Nitrostat] 0.4 mg SUBLINGUAL Q5M PRN #25 tab PRN Reason: Chest Pain Pantoprazole [Protonix] 40 mg PO QAM Albuterol Inhaler [Ventolin Hfa Inhaler] 1 - 2 puff INHALATION RT-Q6H PRN PRN Reason: Shortness Of Breath Desvenlafaxine Succinate [Pristiq] 25 mg PO HS Fluticasone Nasal [place] [Flonase Nasal [place]] 2 spray EA NOSTRIL DAILY Aspirin 81 mg PO DAILY Spironolactone 12.5 mg PO QAM Fluticasone/Salmeterol [Fluticasone-Salmeterol 113-14] 1 puff INHALATION RT- BID Atorvastatin [Lipitor] 20 mg PO QAM ALPRAZolam [Xanax] 0.25 mg PO DAILY PRN PRN Reason: Anxiety Cyanocobalamin [Vitamin B-12] 500 mcg PO DAILY Diclofenac Sodium Gel [Voltaren Gel] 2 gm TOPICAL QID PRN PRN Reason: Pain Ipratropium-Albuterol Nebulize [Duoneb 0.5 mg-3 mg/3 ml Soln] 3 ml INHALATION RT-QID Discontinued Hydrochlorothiazide 25 mg PO QAM Potassium Chloride [Klor-Con 10] 10 meq PO DAILY Discharge Medication List Brivaracetam [Briviact] 100 mg PO BID 08/12/16 [History] Montelukast [Singulair] 10 mg PO HS 09/17/17 [History] Nitroglycerin Sl Tabs [Nitrostat] 0.4 mg SUBLINGUAL Q5M PRN #25 tab 09/24/17 [Rx] Pantoprazole [Protonix] 40 mg PO QAM 12/03/17 [History] Albuterol Inhaler [Ventolin Hfa Inhaler] 1 - 2 puff INHALATION RT-Q6H PRN 08/10/18 [History] Aspirin 81 mg PO DAILY 08/10/18 [History] Desvenlafaxine Succinate [Pristiq] 25 mg PO HS 08/10/18 [History] Fluticasone Nasal [place] [Flonase Nasal [place]] 2 spray EA NOSTRIL DAILY 08/10/18 [History] Fluticasone/Salmeterol [Fluticasone-Salmeterol 113-14] 1 puff INHALATION RT-BID 08/10/18 [History] Spironolactone 12.5 mg PO QAM 08/10/18 [History] Atorvastatin [Lipitor] 20 mg PO QAM 11/22/18 [History] ALPRAZolam [Xanax] 0.25 mg PO DAILY PRN 06/11/19 [History] Cyanocobalamin [Vitamin B-12] 500 mcg PO DAILY 06/13/19 [History] Diclofenac Sodium Gel [Voltaren Gel] 2 gm TOPICAL QID PRN 06/13/19 [History] Ipratropium-Albuterol Nebulize [Duoneb 0.5 mg-3 mg/3 ml Soln] 3 ml INHALATION RT-QID 06/13/19 [History] Follow up Appointment(s)/Referral(s): Guzman Bowen MD [STAFF PHYSICIAN] - 1 Week Alex Gomez DO [Primary Care Provider] - 1 Week Patient Instructions/Handouts: Depression (GEN), Epilepsy (GEN) Discharge Disposition: HOME SELF-CARE
== END 2019-06-14 16:13 | disposition home or self-care (01) ==
LOC: EC 11:19 → 5NMEDONC 13:44 → UNDOADMIN 13:44 → INTOOBSV 13:44 → 2SICU 15:55 → 5NMEDONC 15:55 → UNDODISIN 06-14 16:13
PROVIDERS: ADMIT Hospitalist; ATTEND Hospitalist
DX: G40.409 Other generalized epilepsy and epileptic syndromes, not intractable, without status epilepticus (principal); I25.10 Atherosclerotic heart disease of native coronary artery without angina pectoris; J44.9 Chronic obstructive pulmonary disease, unspecified; E78.5 Hyperlipidemia, unspecified; I10 Essential (primary) hypertension; K86.1 Other chronic pancreatitis; N20.0 Calculus of kidney; K76.0 Fatty (change of) liver, not elsewhere classified; R94.31 Abnormal electrocardiogram [ECG] [EKG]; R00.0 Tachycardia, unspecified; I08.3 Combined rheumatic disorders of mitral, aortic and tricuspid valves; G31.9 Degenerative disease of nervous system, unspecified; K44.9 Diaphragmatic hernia without obstruction or gangrene; G43.909 Migraine, unspecified, not intractable, without status migrainosus; K57.90 Diverticulosis of intestine, part unspecified, without perforation or abscess without bleeding; M85.80 Other specified disorders of bone density and structure, unspecified site; F41.9 Anxiety disorder, unspecified; F41.0 Panic disorder [episodic paroxysmal anxiety]; Z87.891 Personal history of nicotine dependence; Z79.899 Other long term (current) drug therapy; Z79.82 Long term (current) use of aspirin; Z79.51 Long term (current) use of inhaled steroids; Z91.09 Other allergy status, other than to drugs and biological substances; Z88.1 Allergy status to other antibiotic agents; Z88.5 Allergy status to narcotic agent; Z88.6 Allergy status to analgesic agent; Z88.0 Allergy status to penicillin; Z88.8 Allergy status to other drugs, medicaments and biological substances; Z85.41 Personal history of malignant neoplasm of cervix uteri; Z90.49 Acquired absence of other specified parts of digestive tract; Z98.890 Other specified postprocedural states; Z90.710 Acquired absence of both cervix and uterus; Z86.69 Personal history of other diseases of the nervous system and sense organs; Z90.722 Acquired absence of ovaries, bilateral; Z91.89 Other specified personal risk factors, not elsewhere classified; Z80.0 Family history of malignant neoplasm of digestive organs; Z82.49 Family history of ischemic heart disease and other diseases of the circulatory system; Z83.79 Family history of other diseases of the digestive system; Z80.8 Family history of malignant neoplasm of other organs or systems
CPT/HCPCS: 96374; 96375; 96361; 99285; 36415; 93005; 93306; 80053; 80048; 83735; 84132; 85025; 85027; 81001; G0378 ×3; J2250; J2405; J2270; 96360

== ENCOUNTER → 2019-06-14 | Outpatient (CLI) | payer OTHER ==
[2019-06-14 17:30] LABS: HCT 45.4 % (34.0-46.0); HGB 15.4 gm/dL (11.4-16.0); MCH 32.8 pg (25.0-35.0); MCHC 33.8 g/dL (31.0-37.0); MCV 96.9 fL (80.0-100.0); Mean Platelet Volume 7.7; Platelet Count 281 k/uL (150-450); RBC 4.68 m/uL (3.80-5.40); RDW 12.6 % (11.5-15.5); WBC 6.7 k/uL (3.8-10.6)
[2019-06-14 18:35] LABS: Basophils # (M) 0.07 k/uL (0-0.2); Eosinophils # (M) 0.13 k/uL (0-0.7); Lymphocytes # (M) 2.08 k/uL (1.0-4.8); Neutrophils # (M) 4.02 k/uL (1.3-7.7); Neutrophils % (M) 60 %; Nucleated Red Blood Cells 0 /100 WBC (0-0); Total Cells Counted 100
== END | disposition home or self-care (01) ==
LOC: LABWHC1 16:20
DX: Z78.9 Other specified health status (principal)
CPT/HCPCS: 36415; 85025

== ENCOUNTER 2019-06-15 19:50 | Emergency (ER) | payer OTHER ==
[2019-06-15 20:04] VITALS: TEMP 97.8
--- NOTE | 2019-06-15 20:44 | ED ---
Seizure HPI - General Chief Complaint: Seizure Stated Complaint: Seizure Time Seen by Provider: 06/15/19 20:16 Source: EMS, RN notes reviewed, old records reviewed Mode of arrival: EMS Limitations: altered mental status - History of Present Illness Initial Comments: This is a 63 year old female to ED for seizure evaluation, presented by EMS for evaluation regards seizure history of seizures and seizure disorder currently going back on seizure medication. Increasing back to normal dose. Patient had multiple ER visits recently for seizures with inpatient hospitalization. No change in medications was made denying any complaints felt well today did take medications as prescribed. Patient is awake and alert in the room states she has mild headache with his family after her seizures MD Complaint: seizure -: days(s) Description of Episode: loss of consciousness, tonic-clonic movement, post-event confusion -: minutes(s) Witnessed: yes - by bystander Seizure History: known seizure disorder Place: home Possible Precipitating Event: stress Associated Symptoms: weakness Treatments Prior to Arrival: none - Related Data Home Medications Medication Instructions Recorded Confirmed Brivaracetam [Briviact] 100 mg PO BID 08/12/16 06/13/19 Montelukast [Singulair] 10 mg PO HS 09/17/17 06/13/19 Pantoprazole [Protonix] 40 mg PO QAM 12/03/17 06/13/19 Albuterol Inhaler [Ventolin Hfa 1 - 2 puff INHALATION RT-Q6H PRN 08/10/18 06/13/19 Inhaler] Aspirin 81 mg PO DAILY 08/10/18 06/13/19 Desvenlafaxine Succinate [Pristiq] 25 mg PO HS 08/10/18 06/13/19 Fluticasone Nasal [place] [Flonase 2 spray EA NOSTRIL DAILY 08/10/18 06/13/19 Nasal [place]] Fluticasone/Salmeterol 1 puff INHALATION RT-BID 08/10/18 06/13/19 [Fluticasone-Salmeterol 113-14] Spironolactone 12.5 mg PO QAM 08/10/18 06/13/19 Atorvastatin [Lipitor] 20 mg PO QAM 11/22/18 06/13/19 ALPRAZolam [Xanax] 0.25 mg PO DAILY PRN 06/11/19 06/13/19 Cyanocobalamin [Vitamin B-12] 500 mcg PO DAILY 06/13/19 06/13/19 Diclofenac Sodium Gel [Voltaren 2 gm TOPICAL QID PRN 06/13/19 06/13/19 Gel] Ipratropium-Albuterol Nebulize 3 ml INHALATION RT-QID 06/13/19 06/13/19 [Duoneb 0.5 mg-3 mg/3 ml Soln] Previous Rx's Medication Instructions Recorded Nitroglycerin Sl Tabs [Nitrostat] 0.4 mg SUBLINGUAL Q5M PRN #25 tab 09/24/17 Allergies Allergy/AdvReac Type Severity Reaction Status Date / Time adhesive Allergy Itching Verified 06/15/19 20:04 ciprofloxacin [From Cipro] Allergy Rash/Hives Verified 06/15/19 20:04 ciprofloxacin HCl Allergy Rash/Hives Verified 06/15/19 20:04 [From Cipro] clarithromycin [From Biaxin] Allergy Rash/Hives Verified 06/15/19 20:04 hydrocodone bitartrate Allergy Rash/Hives Verified 06/15/19 20:04 [From Vicodin] hydromorphone HCl Allergy Itching Verified 06/15/19 20:04 [From Dilaudid] levofloxacin [From Levaquin] Allergy Rash/Hives Verified 06/15/19 20:04 meloxicam [From Mobic] Allergy Rash/Hives Verified 06/15/19 20:04 oxycodone Allergy Rash/Hives Verified 06/15/19 20:04 Penicillins Allergy Swelling Verified 06/15/19 20:04 IN THROAT propoxyphene napsylate Allergy Rash/Hives Verified 06/15/19 20:04 [From Darvocet-N] dicyclomine [From Bentyl] AdvReac Confusion Verified 06/15/19 20:04 ipratropium [From Atrovent] AdvReac Chest Pain Verified 06/15/19 20:04 lorazepam [From Ativan] AdvReac seizures Verified 06/15/19 20:04 promethazine HCl AdvReac seizures Verified 06/15/19 20:04 [From Phenergan] tramadol HCl [From Ultram] AdvReac seizures Verified 06/15/19 20:04 DERMABOND Allergy Severe Rash/Hives Uncoded 06/15/19 20:04 Review of Systems ROS Statement: Those systems with pertinent positive or pertinent negative responses have been documented in the HPI. ROS Other: All systems not noted in ROS Statement are negative. Past Medical History Past Medical History: Asthma, Coronary Artery Disease (CAD), Cancer, COPD, Hyperlipidemia, Hypertension, Seizure Disorder Additional Past Medical History / Comment(s): Last seizure APRIL 28 OR JUN 2018. Chronic pancreatitis. Kidney stones. Recurring hiatal hernia. Migraines. Heart murmur. Diverticulitis. Fatty liver. Pain clinic. Osteopenia. Cervical cancer history in 1988. History of Any Multi-Drug Resistant Organisms: None Reported Past Surgical History: Appendectomy, Bladder Surgery, Bowel Resection, Cholecystectomy, Heart Catheterization, Hysterectomy, Orthopedic Surgery Additional Past Surgical History / Comment(s): Surgery on right salivary gland. Right elbow nerve surgery. EGD. Colonoscopy. Justin fundoplasty. EMELYN 1988, bilateral oophorectomy 1989. Bladder sling procedure. Exploratory laparscopies. Pain clinic procedures. laparoscopic adhesions Past Anesthesia/Blood Transfusion Reactions: Previous Problems w/ Anesthesia, Postoperative Nausea & Vomiting (PONV) Additional Past Anesthesia/Blood Transfusion Reaction / Comment(s): Takes long time to awaken. Past Psychological History: Anxiety, Panic Disorder Smoking Status: Former smoker Past Alcohol Use History: None Reported Past Drug Use History: None Reported - Past Family History Mother Sister(s) Family Medical History: Cancer Additional Family Medical History / Comment(s): COLON CANCER. GRANDFATHER ALSO HAD COLON CANCER Mother Family Medical History: Cancer Additional Family Medical History / Comment(s): Colon cancer Father Family Medical History: Hypertension Brother(s) Family Medical History: No Reported History Additional Family Medical History / Comment(s): Diverticulitis Sister(s) Family Medical History: Cancer Additional Family Medical History / Comment(s): Head and neck cancer, brain aneurysm Daughter(s) Family Medical History: No Reported History Son(s) Family Medical History: No Reported History General Exam Limitations: altered mental status General appearance: alert, in no apparent distress, anxious, lethargic (postIctal) Head exam: Present: atraumatic, normocephalic, normal inspection Eye exam: Present: normal appearance, PERRL, EOMI. Absent: scleral icterus, conjunctival injection, periorbital swelling ENT exam: Present: normal exam, mucous membranes moist Neck exam: Present: normal inspection. Absent: tenderness, meningismus, lymphadenopathy Respiratory exam: Present: normal lung sounds bilaterally. Absent: respiratory distress, wheezes, rales, rhonchi, stridor Cardiovascular Exam: Present: normal rhythm, tachycardia, normal heart sounds. Absent: systolic murmur, diastolic murmur, rubs, gallop, clicks GI/Abdominal exam: Present: soft, normal bowel sounds. Absent: distended, tenderness, guarding, rebound, rigid Extremities exam: Present: normal inspection, full ROM, normal capillary refill. Absent: tenderness, pedal edema, joint swelling, calf tenderness Back exam: Present: normal inspection Neurological exam: Present: alert, oriented X3, CN II-XII intact Psychiatric exam: Present: normal affect, normal mood Skin exam: Present: warm, dry, intact, normal color. Absent: rash Course Vital Signs 06/15/19 19:57 Temperature 97.8 F Pulse Rate 112 H Respiratory 17 Rate Blood Pressure 130/82 O2 Sat by Pulse 96 Oximetry - Reevaluation(s) Reevaluation #1: 06/15/19 20:43 medical record is reviewed as well as prior ED visits and inpatient visit Reevaluation #2: 06/15/19 22:14 Patient's seizure activity is improved here in the ER Reevaluation #3: 06/15/19 22:14 Patient's family state patient home Medical Decision Making - Medical Decision Making 63 female recurrent seizure patient's feeling good here in the ER the can be di scharged home to care of family - Lab Data Result diagrams: 06/15/19 20:15 06/15/19 20:15 Lab Results 06/15/19 06/15/19 06/15/19 Range/Units 20:15 20:15 20:15 WBC 8.4 (3.8-10.6) k/uL RBC 4.47 (3.80-5.40) m/uL Hgb 15.0 (11.4-16.0) gm/dL Hct 42.9 (34.0-46.0) % MCV 96.1 (80.0-100.0) fL MCH 33.6 (25.0-35.0) pg MCHC 35.0 (31.0-37.0) g/dL RDW 12.9 (11.5-15.5) % Plt Count 248 (150-450) k/uL Neutrophils % 61 % Lymphocytes % 25 % Monocytes % 6 % Eosinophils % 3 % Basophils % 3 % Neutrophils # 5.1 (1.3-7.7) k/uL Lymphocytes # 2.1 (1.0-4.8) k/uL Monocytes # 0.5 (0-1.0) k/uL Eosinophils # 0.2 (0-0.7) k/uL Basophils # 0.2 (0-0.2) k/uL Sodium 139 (137-145) mmol/L Potassium 3.6 (3.5-5.1) mmol/L Chloride 103 (98-107) mmol/L Carbon Dioxide 31 H (22-30) mmol/L Anion Gap 5 mmol/L BUN 17 (7-17) mg/dL Creatinine 0.66 (0.52-1.04) mg/dL Est GFR (CKD-EPI)AfAm >90 (>60 ml/min/1.73 sqM) Est GFR (CKD-EPI)NonAf >90 (>60 ml/min/1.73 sqM) Glucose 97 (74-99) mg/dL Calcium 9.8 (8.4-10.2) mg/dL Phosphorus 4.5 (2.5-4.5) mg/dL Magnesium 2.2 (1.6-2.3) mg/dL Total Bilirubin 0.5 (0.2-1.3) mg/dL AST 42 H (14-36) U/L ALT 38 H (4-34) U/L Alkaline Phosphatase 91 (38-126) U/L Creatine Kinase 72 (30-135) U/L CK-MB (CK-2) 1.6 (0.0-2.4) ng/mL Total Protein 6.3 (6.3-8.2) g/dL Albumin 4.3 (3.5-5.0) g/dL Lipase 350 H (23-300) U/L Salicylates <1.0 mg/dL Urine Opiates Screen (NotDetected) Ur Oxycodone Screen (NotDetected) Urine Methadone Screen (NotDetected) Ur Propoxyphene Screen (NotDetected) Acetaminophen <10.0 ug/mL Ur Barbiturates Screen (NotDetected) U Tricyclic Antidepress (NotDetected) Ur Phencyclidine Scrn (NotDetected) Ur Amphetamines Screen (NotDetected) U Methamphetamines Scrn (NotDetected) U Benzodiazepines Scrn (NotDetected) Urine Cocaine Screen (NotDetected) U Marijuana (THC) Screen (NotDetected) Serum Alcohol <10 mg/dL 06/15/19 Range/Units 21:22 WBC (3.8-10.6) k/uL RBC (3.80-5.40) m/uL Hgb (11.4-16.0) gm/dL Hct (34.0-46.0) % MCV (80.0-100.0) fL MCH (25.0-35.0) pg MCHC (31.0-37.0) g/dL RDW (11.5-15.5) % Plt Count (150-450) k/uL Neutrophils % % Lymphocytes % % Monocytes % % Eosinophils % % Basophils % % Neutrophils # (1.3-7.7) k/uL Lymphocytes # (1.0-4.8) k/uL Monocytes # (0-1.0) k/uL Eosinophils # (0-0.7) k/uL Basophils # (0-0.2) k/uL Sodium (137-145) mmol/L Potassium (3.5-5.1) mmol/L Chloride (98-107) mmol/L Carbon Dioxide (22-30) mmol/L Anion Gap mmol/L BUN (7-17) mg/dL Creatinine (0.52-1.04) mg/dL Est GFR (CKD-EPI)AfAm (>60 ml/min/1.73 sqM) Est GFR (CKD-EPI)NonAf (>60 ml/min/1.73 sqM) Glucose (74-99) mg/dL Calcium (8.4-10.2) mg/dL Phosphorus (2.5-4.5) mg/dL Magnesium (1.6-2.3) mg/dL Total Bilirubin (0.2-1.3) mg/dL AST (14-36) U/L ALT (4-34) U/L Alkaline Phosphatase (38-126) U/L Creatine Kinase (30-135) U/L CK-MB (CK-2) (0.0-2.4) ng/mL Total Protein (6.3-8.2) g/dL Albumin (3.5-5.0) g/dL Lipase (23-300) U/L Salicylates mg/dL Urine Opiates Screen Not Detected (NotDetected) Ur Oxycodone Screen Not Detected (NotDetected) Urine Methadone Screen Not Detected (NotDetected) Ur Propoxyphene Screen Not Detected (NotDetected) Acetaminophen ug/mL Ur Barbiturates Screen Not Detected (NotDetected) U Tricyclic Antidepress Not Detected (NotDetected) Ur Phencyclidine Scrn Not Detected (NotDetected) Ur Amphetamines Screen Not Detected (NotDetected) U Methamphetamines Scrn Not Detected (NotDetected) U Benzodiazepines Scrn Detected H (NotDetected) Urine Cocaine Screen Not Detected (NotDetected) U Marijuana (THC) Screen Not Detected (NotDetected) Serum Alcohol mg/dL Disposition Clinical Impression: Generalized seizure, Epileptic seizure, generalized, Seizure disorder Disposition: HOME SELF-CARE Condition: Fair Instructions (If sedation given, give patient instructions): Recurrent Seizures in Adults (ED) Is patient prescribed a controlled substance at d/c from ED?: No Referrals: Nonstaff,Physician [Primary Care Provider] - 1-2 days
[2019-06-15] MEDS ORDERED: SODIUM CHLORIDE 0.9% 1,000 ML IV STA ×2 (20:45)
[2019-06-15 21:24] LABS: Basophils # (A) 0.2 k/uL (0-0.2); Basophils % (A) 3 %; Eosinophils # (A) 0.2 k/uL (0-0.7); Eosinophils % (A) 3 %; HCT 42.9 % (34.0-46.0); Lymphocytes # (A) 2.1 k/uL (1.0-4.8); Lymphocytes % (A) 25 %; MCH 33.6 pg (25.0-35.0); MCV 96.1 fL (80.0-100.0); Mean Platelet Volume 7.6; Monocytes # (A) 0.5 k/uL (0-1.0); Monocytes % (A) 6 %; Neutrophils # (A) 5.1 k/uL (1.3-7.7); Neutrophils % (A) 61 %; Platelet Count 248 k/uL (150-450); RBC 4.47 m/uL (3.80-5.40); RDW 12.9 % (11.5-15.5); WBC 8.4 k/uL (3.8-10.6)
[2019-06-15 21:31] LABS: ALT 38 U/L (4-34); AST 42 U/L (14-36); Acetaminophen <10.0 ug/mL; African American GFR (CKD) >90 (>60 ml/min/1.73 sqM); Albumin 4.3 g/dL (3.5-5.0); Alcohol <10 mg/dL; Alkaline Phosphatase 91 U/L (38-126); Anion Gap 5 mmol/L; Blood Urea Nitrogen 17 mg/dL (7-17); Calcium 9.8 mg/dL (8.4-10.2); Carbon Dioxide 31 mmol/L (22-30); Chloride 103 mmol/L (98-107); Creatine Kinase 72 U/L (30-135); Glucose 97 mg/dL (74-99); Magnesium 2.2 mg/dL (1.6-2.3); Non-African American GFR(CKD) >90 (>60 ml/min/1.73 sqM); Phosphorus 4.5 mg/dL (2.5-4.5); Potassium 3.6 mmol/L (3.5-5.1); Salicylate <1.0 mg/dL; Sodium 139 mmol/L (137-145); Total Bilirubin 0.5 mg/dL (0.2-1.3); Total Protein 6.3 g/dL (6.3-8.2)
[2019-06-15 22:11] LABS: Amphetamine Screen,Urine Not Detected (NotDetected); Barbiturate Screen,Urine Not Detected (NotDetected); Benzodiazepines Screen,Urine Detected (NotDetected); Cocaine Screen,Urine Not Detected (NotDetected); Methadone Screen, Urine Not Detected (NotDetected); Opiate Screen,Urine Not Detected (NotDetected); Oxycodone Screen, Urine Not Detected (NotDetected); Phencyclidine Screen,Urine Not Detected (NotDetected); Tricyclic Antidepressant,Urine Not Detected (NotDetected); Urn Cannabinoid Scrn Not Detected (NotDetected)
[2019-06-15 22:22] VITALS: BP 107/75; PULSE 100; RESP 18
== END 2019-06-15 22:47 | disposition home or self-care (01) ==
LOC: EC 19:50
DX: G40.409 Other generalized epilepsy and epileptic syndromes, not intractable, without status epilepticus (principal); R00.0 Tachycardia, unspecified; R41.82 Altered mental status, unspecified; R53.1 Weakness; J44.9 Chronic obstructive pulmonary disease, unspecified; I25.10 Atherosclerotic heart disease of native coronary artery without angina pectoris; E78.5 Hyperlipidemia, unspecified; I10 Essential (primary) hypertension; F41.9 Anxiety disorder, unspecified; Z87.891 Personal history of nicotine dependence; Z88.0 Allergy status to penicillin; Z88.1 Allergy status to other antibiotic agents; Z88.5 Allergy status to narcotic agent; Z88.8 Allergy status to other drugs, medicaments and biological substances; Z91.048 Other nonmedicinal substance allergy status; Z79.51 Long term (current) use of inhaled steroids; Z79.82 Long term (current) use of aspirin; Z79.899 Other long term (current) drug therapy; Z85.41 Personal history of malignant neoplasm of cervix uteri; Z86.69 Personal history of other diseases of the nervous system and sense organs; Z87.19 Personal history of other diseases of the digestive system; Z90.710 Acquired absence of both cervix and uterus; Z95.818 Presence of other cardiac implants and grafts; Z82.0 Family history of epilepsy and other diseases of the nervous system; Z82.49 Family history of ischemic heart disease and other diseases of the circulatory system; Z53.8 Procedure and treatment not carried out for other reasons
CPT/HCPCS: 36415; 93005; 80053; 82550; 82553; 83690; 83735; 84100; 85025; 80306; 83520; 99285; 96360; 96361; G0480 ×2; 80320; 80329

== ENCOUNTER → 2019-06-17 | Outpatient (CLI) | payer OTHER ==
[2019-06-17 18:30] LABS: African American GFR (CKD) 78.9 (60.0-200.0); Anion Gap 8.4 mmol/L (4.00-12.00); BUN/Creat Ratio 13.33 Ratio (12.00-20.00); Calcium 9.8 mg/dL (8.7-10.3); Carbon Dioxide 29.6 mmol/L (21.6-31.8); Potassium 4.1 mmol/L (3.5-5.5)
== END | disposition home or self-care (01) ==
LOC: LABWHC1 13:26
PROVIDERS: ATTEND Family Medicine
DX: E87.6 Hypokalemia (principal)
CPT/HCPCS: 36415; 80048

== ENCOUNTER 2019-06-19 18:55 | Emergency (ER) | payer OTHER ==
[2019-06-19 19:04] VITALS: RESP 18; TEMP 97.4
[2019-06-19] MEDS ORDERED: SODIUM CHLORIDE 0.9% 500 ML 500 ML IV STA (19:12)
--- NOTE | 2019-06-19 19:19 | ED ---
General Adult HPI - General Chief complaint: Seizure Stated complaint: Seizure Time Seen by Provider: 06/19/19 19:00 Source: patient, RN notes reviewed, old records reviewed Mode of arrival: ambulatory Limitations: altered mental status - History of Present Illness Initial comments: 62-year-old female history of seizure disorder presenting for evaluation of tonic-clonic seizure. EMS had been called initially for seizure activity, patient was postictal at the time EMS arrived, she recurrent episode wall being transported to the hospital lasting approximately 1 minute. She was given 10 mg of intramuscular Versed. Unable to contribute to the history of time my evaluation. She is maintaining her airway, moving all extremities and will follow some simple commands but not able to answer specific questions. states there has been adjustments in her seizure medication over the past several weeks. She's had multiple ER visits and admissions with recurrent seizure. No head trauma. No injury reported according to family. Prior to seizure she had been at her baseline. - Related Data Home Medications Medication Instructions Recorded Confirmed Brivaracetam [Briviact] 100 mg PO BID 08/12/16 06/13/19 Montelukast [Singulair] 10 mg PO HS 09/17/17 06/13/19 Pantoprazole [Protonix] 40 mg PO QAM 12/03/17 06/13/19 Albuterol Inhaler [Ventolin Hfa 1 - 2 puff INHALATION RT-Q6H PRN 08/10/18 06/13/19 Inhaler] Aspirin 81 mg PO DAILY 08/10/18 06/13/19 Desvenlafaxine Succinate [Pristiq] 25 mg PO HS 08/10/18 06/13/19 Fluticasone Nasal [place] [Flonase 2 spray EA NOSTRIL DAILY 08/10/18 06/13/19 Nasal [place]] Fluticasone/Salmeterol 1 puff INHALATION RT-BID 08/10/18 06/13/19 [Fluticasone-Salmeterol 113-14] Spironolactone 12.5 mg PO QAM 08/10/18 06/13/19 Atorvastatin [Lipitor] 20 mg PO QAM 11/22/18 06/13/19 ALPRAZolam [Xanax] 0.25 mg PO DAILY PRN 06/11/19 06/13/19 Cyanocobalamin [Vitamin B-12] 500 mcg PO DAILY 06/13/19 06/13/19 Diclofenac Sodium Gel [Voltaren 2 gm TOPICAL QID PRN 06/13/19 06/13/19 Gel] Ipratropium-Albuterol Nebulize 3 ml INHALATION RT-QID 06/13/19 06/13/19 [Duoneb 0.5 mg-3 mg/3 ml Soln] Previous Rx's Medication Instructions Recorded Nitroglycerin Sl Tabs [Nitrostat] 0.4 mg SUBLINGUAL Q5M PRN #25 tab 09/24/17 Allergies Allergy/AdvReac Type Severity Reaction Status Date / Time adhesive Allergy Itching Verified 06/15/19 20:04 ciprofloxacin [From Cipro] Allergy Rash/Hives Verified 06/15/19 20:04 ciprofloxacin HCl Allergy Rash/Hives Verified 06/15/19 20:04 [From Cipro] clarithromycin [From Biaxin] Allergy Rash/Hives Verified 06/15/19 20:04 hydrocodone bitartrate Allergy Rash/Hives Verified 06/15/19 20:04 [From Vicodin] hydromorphone HCl Allergy Itching Verified 06/15/19 20:04 [From Dilaudid] levofloxacin [From Levaquin] Allergy Rash/Hives Verified 06/15/19 20:04 meloxicam [From Mobic] Allergy Rash/Hives Verified 06/15/19 20:04 oxycodone Allergy Rash/Hives Verified 06/15/19 20:04 Penicillins Allergy Swelling Verified 06/15/19 20:04 IN THROAT propoxyphene napsylate Allergy Rash/Hives Verified 06/15/19 20:04 [From Darvocet-N] dicyclomine [From Bentyl] AdvReac Confusion Verified 06/15/19 20:04 ipratropium [From Atrovent] AdvReac Chest Pain Verified 06/15/19 20:04 lorazepam [From Ativan] AdvReac seizures Verified 06/15/19 20:04 promethazine HCl AdvReac seizures Verified 06/15/19 20:04 [From Phenergan] tramadol HCl [From Ultram] AdvReac seizures Verified 06/15/19 20:04 DERMABOND Allergy Severe Rash/Hives Uncoded 06/15/19 20:04 Review of Systems ROS Statement: Those systems with pertinent positive or pertinent negative responses have been documented in the HPI. ROS Other: All systems not noted in ROS Statement are negative. Past Medical History Past Medical History: Asthma, Coronary Artery Disease (CAD), Cancer, COPD, Hyperlipidemia, Hypertension, Seizure Disorder Additional Past Medical History / Comment(s): Last seizure APRIL 28 OR JUN 2018. Chronic pancreatitis. Kidney stones. Recurring hiatal hernia. Migraines. Heart murmur. Diverticulitis. Fatty liver. Pain clinic. Osteopenia. Cervical cancer history in 1988. History of Any Multi-Drug Resistant Organisms: None Reported Past Surgical History: Appendectomy, Bladder Surgery, Bowel Resection, Cholecystectomy, Heart Catheterization, Hysterectomy, Orthopedic Surgery Additional Past Surgical History / Comment(s): Surgery on right salivary gland. Right elbow nerve surgery. EGD. Colonoscopy. Justin fundoplasty. EMELYN 1988, bilateral oophorectomy 1989. Bladder sling procedure. Exploratory laparscopies. Pain clinic procedures. laparoscopic adhesions Past Anesthesia/Blood Transfusion Reactions: Previous Problems w/ Anesthesia, Postoperative Nausea & Vomiting (PONV) Additional Past Anesthesia/Blood Transfusion Reaction / Comment(s): Takes long time to awaken. Past Psychological History: Anxiety, Panic Disorder Smoking Status: Former smoker Past Alcohol Use History: None Reported Past Drug Use History: None Reported - Past Family History Mother Sister(s) Family Medical History: Cancer Additional Family Medical History / Comment(s): COLON CANCER. GRANDFATHER ALSO HAD COLON CANCER Mother Family Medical History: Cancer Additional Family Medical History / Comment(s): Colon cancer Father Family Medical History: Hypertension Brother(s) Family Medical History: No Reported History Additional Family Medical History / Comment(s): Diverticulitis Sister(s) Family Medical History: Cancer Additional Family Medical History / Comment(s): Head and neck cancer, brain aneurysm Daughter(s) Family Medical History: No Reported History Son(s) Family Medical History: No Reported History General Exam Limitations: altered mental status General appearance: lethargic Head exam: Present: atraumatic, normocephalic Eye exam: Present: normal appearance, PERRL ENT exam: Present: normal exam Neck exam: Present: normal inspection. Absent: tenderness, meningismus Respiratory exam: Present: normal lung sounds bilaterally. Absent: respiratory distress, wheezes Cardiovascular Exam: Present: regular rate, normal rhythm GI/Abdominal exam: Present: soft. Absent: distended, tenderness, guarding Extremities exam: Present: normal inspection, normal capillary refill. Absent: pedal edema, calf tenderness Neurological exam: Absent: motor sensory deficit Skin exam: Present: warm, dry, intact. Absent: cyanosis, diaphoretic Course Vital Signs 06/19/19 06/19/19 18:57 19:12 Temperature 97.4 F L Pulse Rate 99 99 Respiratory 18 18 Rate Blood Pressure 113/69 105/58 O2 Sat by Pulse 92 L 98 Oximetry EKG Findings - EKG Comments: EKG Findings:: EKG: Normal sinus rhythm, inferior infarct similar compared to EKG obtained on June 15 which was 4 days ago, rate of 99, NV interval 150, QRS duration 84, QTC 500 ms. Medical Decision Making - Medical Decision Making 63-year-old female presenting with generalized tonic-clonic seizure, 2 episodes prior to arrival. Had been treated with Versed by EMS. Patient has nonfocal neurologic exam, head CT is performed which is negative for itch cream hemorrhage, no mass effect or acute findings, she has bifrontal atrophy. Normal CBC, sodium 135, otherwise electrolytes are within normal limits. EKG is sinus rhythm. I did discuss case with Dr. Abreu, covering for the patient's primary care physician, however there is no neurology coverage and does recommend transfer. I discussed case with the ER physician at [facility] Dr. Kunz, will accept transfer for neurology evaluation. Patient and her are agreeable with transfer. - Lab Data Result diagrams: 06/19/19 19:41 06/19/19 19:41 Lab Results 06/19/19 06/19/19 Range/Units 19:41 19:41 WBC 6.9 (3.8-10.6) k/uL RBC 4.20 (3.80-5.40) m/uL Hgb 14.1 (11.4-16.0) gm/dL Hct 40.2 (34.0-46.0) % MCV 95.8 (80.0-100.0) fL MCH 33.7 (25.0-35.0) pg MCHC 35.1 (31.0-37.0) g/dL RDW 13.0 (11.5-15.5) % Plt Count 252 (150-450) k/uL Neutrophils % (Manual) 70 % Lymphocytes % (Manual) 19 % Monocytes % (Manual) 10 % Eosinophils % (Manual) 1 % Neutrophils # (Manual) 4.83 (1.3-7.7) k/uL Lymphocytes # (Manual) 1.31 (1.0-4.8) k/uL Monocytes # (Manual) 0.69 (0-1.0) k/uL Eosinophils # (Manual) 0.07 (0-0.7) k/uL Nucleated RBCs 0 (0-0) /100 WBC Manual Slide Review Performed RBC Morphology Normal Sodium 135 L (137-145) mmol/L Potassium 3.7 (3.5-5.1) mmol/L Chloride 103 (98-107) mmol/L Carbon Dioxide 26 (22-30) mmol/L Anion Gap 6 mmol/L BUN 19 H (7-17) mg/dL Creatinine 0.63 (0.52-1.04) mg/dL Est GFR (CKD-EPI)AfAm >90 (>60 ml/min/1.73 sqM) Est GFR (CKD-EPI)NonAf >90 (>60 ml/min/1.73 sqM) Glucose 97 (74-99) mg/dL Calcium 9.3 (8.4-10.2) mg/dL Magnesium 2.2 (1.6-2.3) mg/dL Total Bilirubin 0.6 (0.2-1.3) mg/dL AST 39 H (14-36) U/L ALT 32 (4-34) U/L Alkaline Phosphatase 70 (38-126) U/L Total Protein 5.9 L (6.3-8.2) g/dL Albumin 4.0 (3.5-5.0) g/dL Disposition Clinical Impression: Generalized seizure, Seizure disorder Disposition: OTHER INSTITUTION NOT DEFINED Condition: Stable Is patient prescribed a controlled substance at d/c from ED?: No Referrals: None,Stated [REFERRING] - 1-2 days Time of Disposition: 21:10 - Out of Hospital Transfer - Req. Specs Out of Hospital Transfer - Requested Specifics: Other Emergency Center (Transferred to [facility])
[2019-06-19 19:55] LABS: HCT 40.2 % (34.0-46.0); HGB 14.1 gm/dL (11.4-16.0); MCH 33.7 pg (25.0-35.0); MCHC 35.1 g/dL (31.0-37.0); MCV 95.8 fL (80.0-100.0); Mean Platelet Volume 7.6; Platelet Count 252 k/uL (150-450); WBC 6.9 k/uL (3.8-10.6)
[2019-06-19 20:12] LABS: Eosinophils # (M) 0.07 k/uL (0-0.7); Lymphocytes # (M) 1.31 k/uL (1.0-4.8); Monocytes # (M) 0.69 k/uL (0-1.0); Neutrophils # (M) 4.83 k/uL (1.3-7.7); Neutrophils % (M) 70 %; Nucleated Red Blood Cells 0 /100 WBC (0-0); Total Cells Counted 100
[2019-06-19 20:39] LABS: ALT 32 U/L (4-34); African American GFR (CKD) >90 (>60 ml/min/1.73 sqM); Anion Gap 6 mmol/L; Blood Urea Nitrogen 19 mg/dL (7-17); Calcium 9.3 mg/dL (8.4-10.2); Carbon Dioxide 26 mmol/L (22-30); Chloride 103 mmol/L (98-107); Glucose 97 mg/dL (74-99); Non-African American GFR(CKD) >90 (>60 ml/min/1.73 sqM); Sodium 135 mmol/L (137-145); Total Bilirubin 0.6 mg/dL (0.2-1.3); Total Protein 5.9 g/dL (6.3-8.2)
[2019-06-19 20:40] LABS: AST 39 U/L (14-36); Alkaline Phosphatase 70 U/L (38-126); Magnesium 2.2 mg/dL (1.6-2.3); Potassium 3.7 mmol/L (3.5-5.1)
--- NOTE | 2019-06-19 20:45 | CT ---
EXAMINATION TYPE: CT brain wo con DATE OF EXAM: 06/19/2019 COMPARISON: CT brain June 11, 2019 HISTORY: Seizure activity. History of seizures. CT DLP: 1123.4 mGycm Automated exposure control for dose reduction was used. There is mild frontal lobe cortical atrophy. There is no mass effect nor midline shift. There is no s ign of intracranial hemorrhage. The calvarium is intact. Skull base is intact. IMPRESSION: Mild frontal lobe atrophy. No acute intracranial abnormality. No change.
[2019-06-19] MEDS ORDERED: MIDAZOLAM 1 MG/ML 5 ML VIAL IV PRN (20:51)
[2019-06-19] MEDS ORDERED: ALPRAZolam 0.25 MG TAB PO PRN (20:52)
[2019-06-19] MEDS ORDERED: NON FORMULARY DRUG (Brivaracetam [Briviact] 100 MG) PO SCH (21:00)
[2019-06-19] MEDS ORDERED: SODIUM CHLORIDE 0.9% 1,000 ML IV SCH (21:00)
[2019-06-19 21:27] LABS: Appearance,Urine Clear (Clear); Bilirubin,Urine Negative (Negative); Blood,Urine Negative (Negative); Color,Urine Light Yellow; Glucose,Urine (UA) Negative (Negative); Ketones,Urine Negative (Negative); Leukocyte Esterase,Urine Negative (Negative); Nitrite,Urine Negative (Negative); PH, Urine 5.5 (5.0-8.0); Protein,Urine Negative (Negative); Specific Gravity,Urine 1.009 (1.001-1.035); Urobilinogen,Urine <2.0 mg/dL (<2.0)
[2019-06-19 23:43] VITALS: BP 130/87; PULSE 97
== END 2019-06-19 21:35 | disposition short-term general hospital (02) ==
LOC: EC 18:55
DX: G40.409 Other generalized epilepsy and epileptic syndromes, not intractable, without status epilepticus (principal); G31.9 Degenerative disease of nervous system, unspecified; R41.82 Altered mental status, unspecified; J44.9 Chronic obstructive pulmonary disease, unspecified; I25.10 Atherosclerotic heart disease of native coronary artery without angina pectoris; E78.5 Hyperlipidemia, unspecified; I10 Essential (primary) hypertension; M85.80 Other specified disorders of bone density and structure, unspecified site; F41.9 Anxiety disorder, unspecified; Z87.891 Personal history of nicotine dependence; Z88.0 Allergy status to penicillin; Z88.1 Allergy status to other antibiotic agents; Z88.5 Allergy status to narcotic agent; Z88.6 Allergy status to analgesic agent; Z88.8 Allergy status to other drugs, medicaments and biological substances; Z91.048 Other nonmedicinal substance allergy status; Z79.51 Long term (current) use of inhaled steroids; Z79.82 Long term (current) use of aspirin; Z79.899 Other long term (current) drug therapy; Z85.41 Personal history of malignant neoplasm of cervix uteri; Z87.19 Personal history of other diseases of the digestive system; Z90.710 Acquired absence of both cervix and uterus; Z82.0 Family history of epilepsy and other diseases of the nervous system; Z53.8 Procedure and treatment not carried out for other reasons
CPT/HCPCS: 36415; 70450; 80053; 81003; 83735; 85025; 93005; 96360; 96361; 99285

== ENCOUNTER 2019-06-26 14:58 | Emergency (ER) | payer OTHER ==
[2019-06-26] MEDS ORDERED: SODIUM CHLORIDE 0.9% 1,000 ML IV ONE (15:49)
[2019-06-26] MEDS ORDERED: ONDANSETRON 4 MG/2 ML VIAL IVP STA (16:13)
[2019-06-26 16:14] LABS: Basophils # (A) 0.2 k/uL (0-0.2); Basophils % (A) 2 %; Eosinophils # (A) 0.1 k/uL (0-0.7); Eosinophils % (A) 1 %; HCT 47.6 % (34.0-46.0); HGB 16.3 gm/dL (11.4-16.0); Lymphocytes # (A) 2.8 k/uL (1.0-4.8); Lymphocytes % (A) 29 %; MCHC 34.3 g/dL (31.0-37.0); Mean Platelet Volume 8.2; Monocytes # (A) 0.6 k/uL (0-1.0); Monocytes % (A) 6 %; Neutrophils # (A) 5.8 k/uL (1.3-7.7); Neutrophils % (A) 60 %; Platelet Count 423 k/uL (150-450); RBC 4.96 m/uL (3.80-5.40); RDW 12.9 % (11.5-15.5); WBC 9.6 k/uL (3.8-10.6)
[2019-06-26 16:17] LABS: ALT 33 U/L (4-34); AST 47 U/L (14-36); African American GFR (CKD) >90 (>60 ml/min/1.73 sqM); Albumin 5.1 g/dL (3.5-5.0); Alkaline Phosphatase 87 U/L (38-126); Anion Gap 12 mmol/L; Blood Urea Nitrogen 17 mg/dL (7-17); Calcium 10.2 mg/dL (8.4-10.2); Carbon Dioxide 23 mmol/L (22-30); Chloride 103 mmol/L (98-107); Glucose 102 mg/dL (74-99); Non-African American GFR(CKD) >90 (>60 ml/min/1.73 sqM); Sodium 138 mmol/L (137-145); Total Bilirubin 0.9 mg/dL (0.2-1.3); Total Protein 7.8 g/dL (6.3-8.2)
[2019-06-26 16:21] LABS: Potassium 5.2 mmol/L (3.5-5.1)
--- NOTE | 2019-06-26 16:43 | ED ---
General Adult HPI - General Chief complaint: Recheck/Abnormal Lab/Rx Stated complaint: Reaction to meds Time Seen by Provider: 06/26/19 15:00 Source: patient, family, RN notes reviewed, old records reviewed Mode of arrival: wheelchair Limitations: no limitations - History of Present Illness Initial comments: This is a 75-year-old female who presents emergency Department complaining of nausea and dizziness and feeling shaky. Patient states it all started after she started her Vimpat 100 mg twice a day. Patient states she just started this 3 days ago. Patient states when she was on 50 she had no symptoms. Patient denies any fever chills or cough. Patient denies any chest pain difficulty breathing first breath per patient denies any abdominal pain. Patient denies any vomiting but is having the dry heaves. Patient denies any diarrhea. Chen ent denies any rashes or lesions. Patient denies any focal numbness or weakness. - Related Data Home Medications Medication Instructions Recorded Confirmed Brivaracetam [Briviact] 100 mg PO BID 08/12/16 06/13/19 Montelukast [Singulair] 10 mg PO HS 09/17/17 06/13/19 Pantoprazole [Protonix] 40 mg PO QAM 12/03/17 06/13/19 Albuterol Inhaler [Ventolin Hfa 1 - 2 puff INHALATION RT-Q6H PRN 08/10/18 06/13/19 Inhaler] Aspirin 81 mg PO DAILY 08/10/18 06/13/19 Desvenlafaxine Succinate [Pristiq] 25 mg PO HS 08/10/18 06/13/19 Fluticasone Nasal [place] [Flonase 2 spray EA NOSTRIL DAILY 08/10/18 06/13/19 Nasal [place]] Fluticasone/Salmeterol 1 puff INHALATION RT-BID 08/10/18 06/13/19 [Fluticasone-Salmeterol 113-14] Spironolactone 12.5 mg PO QAM 08/10/18 06/13/19 Atorvastatin [Lipitor] 20 mg PO QAM 11/22/18 06/13/19 ALPRAZolam [Xanax] 0.25 mg PO DAILY PRN 06/11/19 06/13/19 Cyanocobalamin [Vitamin B-12] 500 mcg PO DAILY 06/13/19 06/13/19 Diclofenac Sodium Gel [Voltaren 2 gm TOPICAL QID PRN 06/13/19 06/13/19 Gel] Ipratropium-Albuterol Nebulize 3 ml INHALATION RT-QID 06/13/19 06/13/19 [Duoneb 0.5 mg-3 mg/3 ml Soln] Previous Rx's Medication Instructions Recorded Nitroglycerin Sl Tabs [Nitrostat] 0.4 mg SUBLINGUAL Q5M PRN #25 tab 09/24/17 Allergies Allergy/AdvReac Type Severity Reaction Status Date / Time adhesive Allergy Itching Verified 06/26/19 15:01 ciprofloxacin [From Cipro] Allergy Rash/Hives Verified 06/26/19 15:01 ciprofloxacin HCl Allergy Rash/Hives Verified 06/26/19 15:01 [From Cipro] clarithromycin [From Biaxin] Allergy Rash/Hives Verified 06/26/19 15:01 hydrocodone bitartrate Allergy Rash/Hives Verified 06/26/19 15:01 [From Vicodin] hydromorphone HCl Allergy Itching Verified 06/26/19 15:01 [From Dilaudid] levofloxacin [From Levaquin] Allergy Rash/Hives Verified 06/26/19 15:01 meloxicam [From Mobic] Allergy Rash/Hives Verified 06/26/19 15:01 oxycodone Allergy Rash/Hives Verified 06/26/19 15:01 Penicillins Allergy Swelling Verified 06/26/19 15:01 IN THROAT propoxyphene napsylate Allergy Rash/Hives Verified 06/26/19 15:01 [From Darvocet-N] dicyclomine [From Bentyl] AdvReac Confusion Verified 06/26/19 15:01 ipratropium [From Atrovent] AdvReac Chest Pain Verified 06/26/19 15:01 lorazepam [From Ativan] AdvReac seizures Verified 06/26/19 15:01 promethazine HCl AdvReac seizures Verified 06/26/19 15:01 [From Phenergan] tramadol HCl [From Ultram] AdvReac seizures Verified 06/26/19 15:01 DERMABOND Allergy Severe Rash/Hives Uncoded 06/15/19 20:04 Review of Systems ROS Statement: Those systems with pertinent positive or pertinent negative responses have been documented in the HPI. ROS Other: All systems not noted in ROS Statement are negative. Past Medical History Past Medical History: Asthma, Coronary Artery Disease (CAD), Cancer, COPD, Hyperlipidemia, Hypertension, Seizure Disorder Additional Past Medical History / Comment(s): Last seizure APRIL 28 OR JUN 2018. Chronic pancreatitis. Kidney stones. Recurring hiatal hernia. Migraines. Heart murmur. Diverticulitis. Fatty liver. Pain clinic. Osteopenia. Cervical cancer history in 1988. History of Any Multi-Drug Resistant Organisms: None Reported Past Surgical History: Appendectomy, Bladder Surgery, Bowel Resection, Cholecystectomy, Heart Catheterization, Hysterectomy, Orthopedic Surgery Additional Past Surgical History / Comment(s): Surgery on right salivary gland. Right elbow nerve surgery. EGD. Colonoscopy. Justin fundoplasty. EMELYN 1988, bilateral oophorectomy 1989. Bladder sling procedure. Exploratory laparscopies. Pain clinic procedures. laparoscopic adhesions Past Anesthesia/Blood Transfusion Reactions: Previous Problems w/ Anesthesia, Postoperative Nausea & Vomiting (PONV) Additional Past Anesthesia/Blood Transfusion Reaction / Comment(s): Takes long time to awaken. Past Psychological History: Anxiety, Panic Disorder Smoking Status: Former smoker Past Alcohol Use History: None Reported Past Drug Use History: None Reported - Past Family History Mother Sister(s) Family Medical History: Cancer Additional Family Medical History / Comment(s): COLON CANCER. GRANDFATHER ALSO HAD COLON CANCER Mother Family Medical History: Cancer Additional Family Medical History / Comment(s): Colon cancer Father Family Medical History: Hypertension Brother(s) Family Medical History: No Reported History Additional Family Medical History / Comment(s): Diverticulitis Sister(s) Family Medical History: Cancer Additional Family Medical History / Comment(s): Head and neck cancer, brain aneurysm Daughter(s) Family Medical History: No Reported History Son(s) Family Medical History: No Reported History General Exam - General Exam Comments Initial Comments: GENERAL: Patient is well-developed and well-nourished. Patient is nontoxic and well- hydrated and is in mild distress. ENT: Neck is soft and supple. No significant lymphadenopathy is noted. Oropharynx is clear. Moist mucous membranes. Neck has full range of motion without eliciting any pain. EYES: The sclera were anicteric and conjunctiva were pink and moist. Extraocular movements were intact and pupils were equal round and reactive to light. Eyelids were unremarkable. PULMONARY: Unlabored respirations. Good breath sounds bilaterally. No audible rales rhonchi or wheezing was noted. CARDIOVASCULAR: There is a regular rate and rhythm without any murmurs gallops or rubs. ABDOMEN: Soft and nontender with normal bowel sounds. No palpable organomegaly was noted. There is no palpable pulsatile mass. SKIN: Skin is clear with no lesions or rashes and otherwise unremarkable. NEUROLOGIC: Patient is alert and oriented x3. Cranial nerves II through XII are grossly intact. Motor and sensory are also intact. Normal speech, volume and content. Symmetrical smile. MUSCULOSKELETAL: Normal extremities with adequate strength and full range of motion. LYMPHATICS: No significant lymphadenopathy is noted PSYCHIATRIC: Normal psychiatric evaluation. Limitations: no limitations Course Vital Signs 06/26/19 06/26/19 06/26/19 15:02 15:24 15:25 Temperature 98.4 F 99.3 F Pulse Rate 118 H 106 H Respiratory 16 28 H 28 H Rate Blood Pressure 152/79 156/93 O2 Sat by Pulse 95 96 Oximetry 06/26/19 16:31 Temperature Pulse Rate 98 Respiratory 16 Rate Blood Pressure 133/71 O2 Sat by Pulse 99 Oximetry Medical Decision Making - Medical Decision Making I spoke with the physician at [facility] that prescribed the patient on Vimpat and she agreed that going down to 50 mg twice a day. Patient has a neurology appointment on Thursday. Patient states she's feeling better since she has gotten fluids and antinausea medication - Lab Data Result diagrams: 06/26/19 15:20 06/26/19 15:20 Lab Results 06/26/19 06/26/19 Range/Units 15:20 15:20 WBC 9.6 (3.8-10.6) k/uL RBC 4.96 (3.80-5.40) m/uL Hgb 16.3 H (11.4-16.0) gm/dL Hct 47.6 H (34.0-46.0) % MCV 96.0 (80.0-100.0) fL MCH 33.0 (25.0-35.0) pg MCHC 34.3 (31.0-37.0) g/dL RDW 12.9 (11.5-15.5) % Plt Count 423 (150-450) k/uL Neutrophils % 60 % Lymphocytes % 29 % Monocytes % 6 % Eosinophils % 1 % Basophils % 2 % Neutrophils # 5.8 (1.3-7.7) k/uL Lymphocytes # 2.8 (1.0-4.8) k/uL Monocytes # 0.6 (0-1.0) k/uL Eosinophils # 0.1 (0-0.7) k/uL Basophils # 0.2 (0-0.2) k/uL Sodium 138 (137-145) mmol/L Potassium 5.2 H (3.5-5.1) mmol/L Chloride 103 (98-107) mmol/L Carbon Dioxide 23 (22-30) mmol/L Anion Gap 12 mmol/L BUN 17 (7-17) mg/dL Creatinine 0.68 (0.52-1.04) mg/dL Est GFR (CKD-EPI)AfAm >90 (>60 ml/min/1.73 sqM) Est GFR (CKD-EPI)NonAf >90 (>60 ml/min/1.73 sqM) Glucose 102 H (74-99) mg/dL Calcium 10.2 (8.4-10.2) mg/dL Total Bilirubin 0.9 (0.2-1.3) mg/dL AST 47 H (14-36) U/L ALT 33 (4-34) U/L Alkaline Phosphatase 87 (38-126) U/L Total Protein 7.8 (6.3-8.2) g/dL Albumin 5.1 H (3.5-5.0) g/dL Disposition Clinical Impression: Adverse drug effect Disposition: HOME SELF-CARE Condition: Good Additional Instructions: Patient should decrease her Vimpat to 50 mg twice a day and follow-up with her neurologist. If patient's symptoms continue or worsen she needs to come to the emergency department Is patient prescribed a controlled substance at d/c from ED?: No Referrals: Guzman Bowen MD [STAFF PHYSICIAN] - 1-2 days Time of Disposition: 17:14
[2019-06-26 17:24] VITALS: BP 119/99; PULSE 105; RESP 20; TEMP 98.8
== END 2019-06-26 17:24 | disposition home or self-care (01) ==
LOC: EC 14:58
DX: R11.0 Nausea (principal); R42 Dizziness and giddiness; T42.6X5A Adverse effect of other antiepileptic and sedative-hypnotic drugs, initial encounter; J44.9 Chronic obstructive pulmonary disease, unspecified; I10 Essential (primary) hypertension; E78.5 Hyperlipidemia, unspecified; F41.0 Panic disorder [episodic paroxysmal anxiety]; Z79.82 Long term (current) use of aspirin; Z79.899 Other long term (current) drug therapy; Z79.51 Long term (current) use of inhaled steroids; Z91.048 Other nonmedicinal substance allergy status; Z88.1 Allergy status to other antibiotic agents; Z88.5 Allergy status to narcotic agent; Z88.6 Allergy status to analgesic agent; Z88.0 Allergy status to penicillin; Z88.8 Allergy status to other drugs, medicaments and biological substances; Z87.891 Personal history of nicotine dependence; Z85.41 Personal history of malignant neoplasm of cervix uteri
CPT/HCPCS: 36415; 80053; 85025; 99284; 96374; 96361; J2405

== ENCOUNTER → 2019-06-28 | Outpatient (CLI) | payer OTHER | LOC: LABWHC1 16:03 | PROVIDERS: ATTEND Family Medicine | DX: E87.6 Hypokalemia (principal) | CPT/HCPCS: 36415; 84132 ==

== ENCOUNTER 2019-07-04 13:16 | Emergency (ER) | payer OTHER ==
[2019-07-04] MEDS ORDERED: SODIUM CHLORIDE 0.9% 500 ML 500 ML IV STA (14:09)
[2019-07-04 14:46] LABS: Basophils % (A) 0 %; Eosinophils # (A) 0.2 k/uL (0-0.7); Eosinophils % (A) 2 %; HCT 41.8 % (34.0-46.0); HGB 14.6 gm/dL (11.4-16.0); Lymphocytes % (A) 21 %; MCH 33.1 pg (25.0-35.0); MCV 94.5 fL (80.0-100.0); Mean Platelet Volume 8.3; Monocytes # (A) 0.6 k/uL (0-1.0); Monocytes % (A) 6 %; Neutrophils # (A) 6.5 k/uL (1.3-7.7); Neutrophils % (A) 69 %; Platelet Count 344 k/uL (150-450); RBC 4.42 m/uL (3.80-5.40); RDW 12.8 % (11.5-15.5); WBC 9.4 k/uL (3.8-10.6)
[2019-07-04] MEDS ORDERED: ONDANSETRON 4 MG/2 ML VIAL IVP STA (14:59)
[2019-07-04] MEDS ORDERED: MIDAZOLAM 1 MG/ML 5 ML VIAL IV STA ×2 (15:32→15:34)
[2019-07-04 15:36] LABS: ALT 15 U/L (4-34); AST 20 U/L (14-36); African American GFR (CKD) >90 (>60 ml/min/1.73 sqM); Albumin 2.5 g/dL (3.5-5.0); Alkaline Phosphatase 50 U/L (38-126); Anion Gap 4 mmol/L; Blood Urea Nitrogen 10 mg/dL (7-17); Carbon Dioxide 24 mmol/L (22-30); Chloride 112 mmol/L (98-107); Glucose 65 mg/dL (74-99); Non-African American GFR(CKD) >90 (>60 ml/min/1.73 sqM); Sodium 140 mmol/L (137-145); Total Bilirubin 0.3 mg/dL (0.2-1.3); Total Protein 4.2 g/dL (6.3-8.2)
[2019-07-04] MEDS ORDERED: MIDAZOLAM 2 MG/2 ML VIAL IV STA (15:38)
[2019-07-04 15:42] LABS: Calcium 6.5 mg/dL (8.4-10.2)
[2019-07-04 15:49] LABS: Potassium 2.1 mmol/L (3.5-5.1)
[2019-07-04 15:57] LABS: Glucose,Whole Blood 116 mg/dL (75-99)
--- NOTE | 2019-07-04 15:59 | ED ---
Seizure HPI - General Chief Complaint: Seizure Stated Complaint: Seizure Time Seen by Provider: 07/04/19 14:09 Source: patient, EMS, RN notes reviewed Mode of arrival: EMS Limitations: no limitations - History of Present Illness Initial Comments: This a 63-year-old female presents emergency department via EMS chief complaint of seizure. Patient reportedly had a prolonged seizure at home and hasn't a short seizure reported by EMS. Patient has not been given any benzodiazepines. reports that she does not respond well to Ativan in which she normally receives Versed. Patient had a recent hospitalization here along with a transferred to [facility] for evaluation and treatment. Patient was started on new medication which she has been very lethargic from. There is no significant head injury patient was jamari was symptoms happened. She is awake and alert at this time has complained of mild headache and nausea. This is very common procedure for patient. Patient denies any extremity weakness. - Related Data Home Medications Medication Instructions Recorded Confirmed Brivaracetam [Briviact] 100 mg PO BID 08/12/16 06/13/19 Montelukast [Singulair] 10 mg PO HS 09/17/17 06/13/19 Pantoprazole [Protonix] 40 mg PO QAM 12/03/17 06/13/19 Albuterol Inhaler [Ventolin Hfa 1 - 2 puff INHALATION RT-Q6H PRN 08/10/18 06/13/19 Inhaler] Aspirin 81 mg PO DAILY 08/10/18 06/13/19 Desvenlafaxine Succinate [Pristiq] 25 mg PO HS 08/10/18 06/13/19 Fluticasone Nasal [place] [Flonase 2 spray EA NOSTRIL DAILY 08/10/18 06/13/19 Nasal [place]] Fluticasone/Salmeterol 1 puff INHALATION RT-BID 08/10/18 06/13/19 [Fluticasone-Salmeterol 113-14] Spironolactone 12.5 mg PO QAM 08/10/18 06/13/19 Atorvastatin [Lipitor] 20 mg PO QAM 11/22/18 06/13/19 ALPRAZolam [Xanax] 0.25 mg PO DAILY PRN 06/11/19 06/13/19 Cyanocobalamin [Vitamin B-12] 500 mcg PO DAILY 06/13/19 06/13/19 Diclofenac Sodium Gel [Voltaren 2 gm TOPICAL QID PRN 06/13/19 06/13/19 Gel] Ipratropium-Albuterol Nebulize 3 ml INHALATION RT-QID 06/13/19 06/13/19 [Duoneb 0.5 mg-3 mg/3 ml Soln] Previous Rx's Medication Instructions Recorded Nitroglycerin Sl Tabs [Nitrostat] 0.4 mg SUBLINGUAL Q5M PRN #25 tab 09/24/17 Allergies Allergy/AdvReac Type Severity Reaction Status Date / Time adhesive Allergy Itching Verified 06/26/19 15:01 ciprofloxacin [From Cipro] Allergy Rash/Hives Verified 06/26/19 15:01 ciprofloxacin HCl Allergy Rash/Hives Verified 06/26/19 15:01 [From Cipro] clarithromycin [From Biaxin] Allergy Rash/Hives Verified 06/26/19 15:01 hydrocodone bitartrate Allergy Rash/Hives Verified 06/26/19 15:01 [From Vicodin] hydromorphone HCl Allergy Itching Verified 06/26/19 15:01 [From Dilaudid] levofloxacin [From Levaquin] Allergy Rash/Hives Verified 06/26/19 15:01 meloxicam [From Mobic] Allergy Rash/Hives Verified 06/26/19 15:01 oxycodone Allergy Rash/Hives Verified 06/26/19 15:01 Penicillins Allergy Swelling Verified 06/26/19 15:01 IN THROAT propoxyphene napsylate Allergy Rash/Hives Verified 06/26/19 15:01 [From Darvocet-N] dicyclomine [From Bentyl] AdvReac Confusion Verified 06/26/19 15:01 ipratropium [From Atrovent] AdvReac Chest Pain Verified 06/26/19 15:01 lorazepam [From Ativan] AdvReac seizures Verified 06/26/19 15:01 promethazine HCl AdvReac seizures Verified 06/26/19 15:01 [From Phenergan] tramadol HCl [From Ultram] AdvReac seizures Verified 06/26/19 15:01 DERMABOND Allergy Severe Rash/Hives Uncoded 06/15/19 20:04 Review of Systems ROS Statement: Those systems with pertinent positive or pertinent negative responses have been documented in the HPI. ROS Other: All systems not noted in ROS Statement are negative. Past Medical History Past Medical History: Asthma, Coronary Artery Disease (CAD), Cancer, COPD, Hyperlipidemia, Hypertension, Seizure Disorder Additional Past Medical History / Comment(s): Last seizure APRIL 28 OR JUN 2018. Chronic pancreatitis. Kidney stones. Recurring hiatal hernia. Migraines. Heart murmur. Diverticulitis. Fatty liver. Pain clinic. Osteopenia. Cervical cancer history in 1988. History of Any Multi-Drug Resistant Organisms: None Reported Past Surgical History: Appendectomy, Bladder Surgery, Bowel Resection, Cholecystectomy, Heart Catheterization, Hysterectomy, Orthopedic Surgery Additional Past Surgical History / Comment(s): Surgery on right salivary gland. Right elbow nerve surgery. EGD. Colonoscopy. Justin fundoplasty. EMELYN 1988, bilateral oophorectomy 1989. Bladder sling procedure. Exploratory laparscopies. Pain clinic procedures. laparoscopic adhesions Past Anesthesia/Blood Transfusion Reactions: Previous Problems w/ Anesthesia, Postoperative Nausea & Vomiting (PONV) Additional Past Anesthesia/Blood Transfusion Reaction / Comment(s): Takes long time to awaken. Past Psychological History: Anxiety, Panic Disorder Smoking Status: Former smoker Past Alcohol Use History: None Reported Past Drug Use History: None Reported - Past Family History Mother Sister(s) Family Medical History: Cancer Additional Family Medical History / Comment(s): COLON CANCER. GRANDFATHER ALSO HAD COLON CANCER Mother Family Medical History: Cancer Additional Family Medical History / Comment(s): Colon cancer Father Family Medical History: Hypertension Brother(s) Family Medical History: No Reported History Additional Family Medical History / Comment(s): Diverticulitis Sister(s) Family Medical History: Cancer Additional Family Medical History / Comment(s): Head and neck cancer, brain aneurysm Daughter(s) Family Medical History: No Reported History Son(s) Family Medical History: No Reported History General Exam Limitations: no limitations General appearance: alert, in no apparent distress Head exam: Present: atraumatic, normocephalic, normal inspection Eye exam: Present: normal appearance, PERRL, EOMI. Absent: scleral icterus, conjunctival injection, periorbital swelling ENT exam: Present: normal exam, normal oropharynx (No tongue injury noted), mucous membranes moist Neck exam: Present: normal inspection, full ROM. Absent: tenderness, meningismus, lymphadenopathy Respiratory exam: Present: normal lung sounds bilaterally. Absent: respiratory distress, wheezes, rales, rhonchi, stridor Cardiovascular Exam: Present: regular rate, normal rhythm, normal heart sounds. Absent: systolic murmur, diastolic murmur, rubs, gallop, clicks GI/Abdominal exam: Present: soft, normal bowel sounds. Absent: distended, tenderness, guarding, rebound, rigid Neurological exam: Present: alert, oriented X3, CN II-XII intact, reflexes normal. Absent: motor sensory deficit Skin exam: Present: warm, dry, intact, normal color. Absent: rash Course Vital Signs 07/04/19 13:20 Temperature 98.8 F Pulse Rate 96 Respiratory 18 Rate Blood Pressure 123/81 O2 Sat by Pulse 97 Oximetry - Reevaluation(s) Reevaluation #1: 07/04/19 16:26 I was called the room secondary to patient having seizure. I did recommend giving the patient Ativan though in the room states that she has worsening symptoms. Patient was given 2 mg of Versed this time. Reevaluation #2: 07/04/19 16:26 Critical lab values were reported though after reviewing CMP this appears to be a diluted sample, Accu-Chek was ordered current Accu-Chek 116, repeat BMP was drawn. Medical Decision Making - Medical Decision Making 63-year-old female presented emergency from for seizure via EMS. Patient had multiple seizures today. She has had multiple medications adjustments recently and has been seen by neurologist at [facility]. Patient will be transferred to [facility] for further treatment and she has been taking that recently. Case discussed with Kayy Figueroa accepts transfer. - Lab Data Result diagrams: 07/04/19 13:31 07/04/19 16:43 Lab Results 07/04/19 07/04/19 07/04/19 Range/Units 13:31 15:17 15:54 WBC 9.4 (3.8-10.6) k/uL RBC 4.42 (3.80-5.40) m/uL Hgb 14.6 (11.4-16.0) gm/dL Hct 41.8 (34.0-46.0) % MCV 94.5 (80.0-100.0) fL MCH 33.1 (25.0-35.0) pg MCHC 35.0 (31.0-37.0) g/dL RDW 12.8 (11.5-15.5) % Plt Count 344 (150-450) k/uL Neutrophils % 69 % Lymphocytes % 21 % Monocytes % 6 % Eosinophils % 2 % Basophils % 0 % Neutrophils # 6.5 (1.3-7.7) k/uL Lymphocytes # 2.0 (1.0-4.8) k/uL Monocytes # 0.6 (0-1.0) k/uL Eosinophils # 0.2 (0-0.7) k/uL Basophils # 0.0 (0-0.2) k/uL Sodium 140 (137-145) mmol/L Potassium 2.1 L* (3.5-5.1) mmol/L Chloride 112 H (98-107) mmol/L Carbon Dioxide 24 (22-30) mmol/L Anion Gap 4 mmol/L BUN 10 (7-17) mg/dL Creatinine 0.37 L (0.52-1.04) mg/dL Est GFR (CKD-EPI)AfAm >90 (>60 ml/min/1.73 sqM) Est GFR (CKD-EPI)NonAf >90 (>60 ml/min/1.73 sqM) Glucose 65 L (74-99) mg/dL POC Glucose (mg/dL) 116 H (75-99) mg/dL POC Glu Patient Case Manager ID Salgat, Shoshana Calcium 6.5 L (8.4-10.2) mg/dL Total Bilirubin 0.3 (0.2-1.3) mg/dL AST 20 (14-36) U/L ALT 15 (4-34) U/L Alkaline Phosphatase 50 (38-126) U/L Total Protein 4.2 L (6.3-8.2) g/dL Albumin 2.5 L (3.5-5.0) g/dL 07/04/19 Range/Units 16:43 WBC (3.8-10.6) k/uL RBC (3.80-5.40) m/uL Hgb (11.4-16.0) gm/dL Hct (34.0-46.0) % MCV (80.0-100.0) fL MCH (25.0-35.0) pg MCHC (31.0-37.0) g/dL RDW (11.5-15.5) % Plt Count (150-450) k/uL Neutrophils % % Lymphocytes % % Monocytes % % Eosinophils % % Basophils % % Neutrophils # (1.3-7.7) k/uL Lymphocytes # (1.0-4.8) k/uL Monocytes # (0-1.0) k/uL Eosinophils # (0-0.7) k/uL Basophils # (0-0.2) k/uL Sodium 138 (137-145) mmol/L Potassium 3.1 L (3.5-5.1) mmol/L Chloride 101 (98-107) mmol/L Carbon Dioxide 31 H (22-30) mmol/L Anion Gap 6 mmol/L BUN 13 (7-17) mg/dL Creatinine 0.60 (0.52-1.04) mg/dL Est GFR (CKD-EPI)AfAm >90 (>60 ml/min/1.73 sqM) Est GFR (CKD-EPI)NonAf >90 (>60 ml/min/1.73 sqM) Glucose 117 H (74-99) mg/dL POC Glucose (mg/dL) (75-99) mg/dL POC Glu Patient Case Manager ID Calcium 9.1 (8.4-10.2) mg/dL Total Bilirubin (0.2-1.3) mg/dL AST (14-36) U/L ALT (4-34) U/L Alkaline Phosphatase (38-126) U/L Total Protein (6.3-8.2) g/dL Albumin (3.5-5.0) g/dL - EKG Data -: EKG Interpreted by Dc EKG Comments: EKG performed at 14:27 normal sinus rhythm rate of 91 LA 154 QRS 86 QT/QTC 392/482 normal intervals, normal axis Q-wave in 2-3 aVF Disposition Clinical Impression: Seizure disorder, Epileptic seizure, generalized Disposition: OTHER INSTITUTION NOT DEFINED Condition: Stable Referrals: Nonstaff,Physician [Primary Care Provider] - 1-2 days Time of Disposition: 16:56 - Out of Hospital Transfer - Req. Specs Out of Hospital Transfer - Requested Specifics: Other Emergency Center ([facility]
[2019-07-04 17:08] LABS: African American GFR (CKD) >90 (>60 ml/min/1.73 sqM); Anion Gap 6 mmol/L; Blood Urea Nitrogen 13 mg/dL (7-17); Calcium 9.1 mg/dL (8.4-10.2); Carbon Dioxide 31 mmol/L (22-30); Chloride 101 mmol/L (98-107); Glucose 117 mg/dL (74-99); Non-African American GFR(CKD) >90 (>60 ml/min/1.73 sqM); Potassium 3.1 mmol/L (3.5-5.1); Sodium 138 mmol/L (137-145)
[2019-07-04] MEDS ORDERED: POTASSIUM CHLORIDE ER 20 MEQ TAB.ER PO STA (17:10)
[2019-07-04 17:19] VITALS: BP 123/73; PULSE 110; RESP 16; TEMP 97.8
[2019-07-04] MEDS ORDERED: ACETAMINOPHEN TAB 325 MG TAB PO STA (17:20)
== END 2019-07-04 19:13 | disposition short-term general hospital (02) ==
LOC: EC 13:16
DX: G40.409 Other generalized epilepsy and epileptic syndromes, not intractable, without status epilepticus (principal); J44.9 Chronic obstructive pulmonary disease, unspecified; I25.10 Atherosclerotic heart disease of native coronary artery without angina pectoris; E78.5 Hyperlipidemia, unspecified; I10 Essential (primary) hypertension; Z87.891 Personal history of nicotine dependence; Z88.0 Allergy status to penicillin; Z88.1 Allergy status to other antibiotic agents; Z88.5 Allergy status to narcotic agent; Z88.6 Allergy status to analgesic agent; Z88.8 Allergy status to other drugs, medicaments and biological substances; Z91.048 Other nonmedicinal substance allergy status; Z79.51 Long term (current) use of inhaled steroids; Z79.82 Long term (current) use of aspirin; Z79.899 Other long term (current) drug therapy; Z85.41 Personal history of malignant neoplasm of cervix uteri; Z90.710 Acquired absence of both cervix and uterus; Z86.69 Personal history of other diseases of the nervous system and sense organs; Z82.0 Family history of epilepsy and other diseases of the nervous system; Z53.8 Procedure and treatment not carried out for other reasons
CPT/HCPCS: 36415; 93005; 80053; 80048; 85025; 99285; 96374; 96375; 96361 ×3; J2250; J2405

== ENCOUNTER → 2019-07-23 | Outpatient (CLI) | payer OTHER | END | disposition home or self-care (01) | LOC: LABWHC1 10:22 | PROVIDERS: ATTEND Family Medicine | DX: Z53.9 Procedure and treatment not carried out, unspecified reason (principal) ==

== ENCOUNTER 2019-09-01 14:35 | Emergency (ER) | payer OTHER ==
[2019-09-01 14:41] VITALS: RESP 18; TEMP 98
--- NOTE | 2019-09-01 14:50 | ED ---
General Adult HPI - General Source: patient Mode of arrival: ambulatory Limitations: no limitations <Maria AGarcia D - Last Filed: 09/01/19 15:12> <Tulio Moser - Last Filed: 09/01/19 17:08> - General Chief complaint: Recheck/Abnormal Lab/Rx Stated complaint: potassium drop/hx of siezure Time Seen by Provider: 09/01/19 14:44 - History of Present Illness Initial comments: Dictation was produced using [employer] dictation software. please excuse any grammatical, word or spelling errors. This patient was cared for during a federal and state declared state of emergency secondary to Covid 19 Chief Complaint: 64-year-old feel presents with lightheadedness and concerned that her potassium is low. History of Present Illness: She 64-year-old female she has history of low potassium. She told me that time her potassium gets low she gets seizures. Patient is on brivacetam. . Patient states that she normally gets lightheadedness and fatigue and weakness whenever her potassium is low. She is supposed to have her potassium checked last week however hasn't gotten her appointment to get her potassium rechecked. Patient concerned that her potassium is low. She is worried that she might have a seizure. The ROS documented in this emergency department record has been reviewed and confirmed by me. Those systems with pertinent positive or negative responses have been documented in the HPI. All other systems are other negative and/or noncontributory. PHYSICAL EXAM: General Impression: Alert and oriented x3, not in acute distress HEENT: Normocephalic atraumatic, extra-ocular movements intact, pupils equal and reactive to light bilaterally, mucous membranes moist. Cardiovascular: Heart regular rate and rhythm Chest: Able to complete full sentences, no retractions, no tachypnea Abdomen: abdomen soft, non-tender, non-distended, no organomegaly Musculoskeletal: Pulses present and equal in all extremities, no peripheral edema Motor: no focal deficits noted Neurological: CN II-XII grossly intact, no focal motor or sensory deficits noted Skin: Intact with no visualized rashes Psych: Tearful ED course: 64-year-old female past medical history of seizures, low potassium presents with generalized weakness and concern of low potassium. Vital signs upon arrival are within acceptable limits. Medications were reviewed. Patient care is signed out to Dr. Moser. (Garcia Saha) - Related Data Home Medications Medication Instructions Recorded Confirmed Brivaracetam [Briviact] 100 mg PO BID 08/12/16 07/04/19 Montelukast [Singulair] 10 mg PO HS 09/17/17 07/04/19 Pantoprazole [Protonix] 40 mg PO DAILY 12/03/17 07/04/19 Albuterol Inhaler (Bulk) [Ventolin 2 puff INHALATION RT-Q6H PRN 08/10/18 Hfa Inhaler (Bulk)] Aspirin 81 mg PO DAILY 08/10/18 07/04/19 Desvenlafaxine Succinate [Pristiq] 25 mg PO DAILY 08/10/18 07/04/19 Fluticasone Nasal [place] [Flonase 2 spray EA NOSTRIL DAILY PRN 08/10/18 07/04/19 Nasal [place]] Spironolactone 12.5 mg PO DAILY 08/10/18 07/04/19 Atorvastatin [Lipitor] 20 mg PO DAILY 11/22/18 07/04/19 ALPRAZolam [Xanax] 0.25 mg PO DAILY 06/11/19 07/04/19 Cyanocobalamin [Vitamin B-12] 500 mcg PO DAILY 06/13/19 07/04/19 Diclofenac Sodium Gel [Voltaren 2 gm TOPICAL QID PRN 06/13/19 07/04/19 Gel] Ipratropium-Albuterol Nebulize 3 ml INHALATION RT-QID 06/13/19 07/04/19 [Duoneb 0.5 mg-3 mg/3 ml Soln] Fluticasone/Salmeterol 1 puff INHALATION RT-BID 07/04/19 07/04/19 [Fluticasone-Salmeterol 232-14] Lacosamide [Vimpat] 50 mg PO HS 07/04/19 07/04/19 Potassium Chloride ER [K-Dur 10] 10 meq PO DAILY 07/04/19 07/04/19 Previous Rx's Medication Instructions Recorded Nitroglycerin Sl Tabs [Nitrostat] 0.4 mg SUBLINGUAL Q5M PRN #25 tab 09/24/17 Allergies Allergy/AdvReac Type Severity Reaction Status Date / Time adhesive Allergy Itching Verified 09/01/19 14:41 ciprofloxacin [From Cipro] Allergy Rash/Hives Verified 09/01/19 14:41 ciprofloxacin HCl Allergy Rash/Hives Verified 09/01/19 14:41 [From Cipro] clarithromycin [From Biaxin] Allergy Rash/Hives Verified 09/01/19 14:41 hydrocodone bitartrate Allergy Rash/Hives Verified 09/01/19 14:41 [From Vicodin] hydromorphone HCl Allergy Itching Verified 09/01/19 14:41 [From Dilaudid] levofloxacin [From Levaquin] Allergy Rash/Hives Verified 09/01/19 14:41 meloxicam [From Mobic] Allergy Rash/Hives Verified 09/01/19 14:41 oxycodone Allergy Rash/Hives Verified 09/01/19 14:41 Penicillins Allergy Swelling Verified 09/01/19 14:41 IN THROAT propoxyphene napsylate Allergy Rash/Hives Verified 09/01/19 14:41 [From Darvocet-N] dicyclomine [From Bentyl] AdvReac Confusion Verified 09/01/19 14:41 ipratropium [From Atrovent] AdvReac Chest Pain Verified 09/01/19 14:41 lorazepam [From Ativan] AdvReac seizures Verified 09/01/19 14:41 promethazine HCl AdvReac seizures Verified 09/01/19 14:41 [From Phenergan] tramadol HCl [From Ultram] AdvReac seizures Verified 09/01/19 14:41 DERMABOND Allergy Severe Rash/Hives Uncoded 09/01/19 14:41 Review of Systems ROS Other: All systems not noted in ROS Statement are negative. <Garcia Saha - Last Filed: 09/01/19 15:12> ROS Other: All systems not noted in ROS Statement are negative. <Tulio Moser - Last Filed: 09/01/19 17:08> ROS Statement: Those systems with pertinent positive or pertinent negative responses have been documented in the HPI. Past Medical History Past Medical History: Asthma, Coronary Artery Disease (CAD), Cancer, COPD, Hyperlipidemia, Hypertension, Seizure Disorder Additional Past Medical History / Comment(s): Last seizure APRIL 28 OR JUN 2018. Chronic pancreatitis. Kidney stones. Recurring hiatal hernia. Migraines. Heart murmur. Diverticulitis. Fatty liver. Pain clinic. Osteopenia. Cervical cancer history in 1988. History of Any Multi-Drug Resistant Organisms: None Reported Past Surgical History: Appendectomy, Bladder Surgery, Bowel Resection, Cholecystectomy, Heart Catheterization, Hysterectomy, Orthopedic Surgery Additional Past Surgical History / Comment(s): Surgery on right salivary gland. Right elbow nerve surgery. EGD. Colonoscopy. Justin fundoplasty. EMELYN 1988, bilateral oophorectomy 1989. Bladder sling procedure. Exploratory laparscopies. Pain clinic procedures. laparoscopic adhesions Past Anesthesia/Blood Transfusion Reactions: Previous Problems w/ Anesthesia, Postoperative Nausea & Vomiting (PONV) Additional Past Anesthesia/Blood Transfusion Reaction / Comment(s): Takes long time to awaken. Past Psychological History: Anxiety, Panic Disorder Smoking Status: Former smoker Past Alcohol Use History: None Reported Past Drug Use History: None Reported - Past Family History Mother Sister(s) Family Medical History: Cancer Additional Family Medical History / Comment(s): COLON CANCER. GRANDFATHER ALSO HAD COLON CANCER Mother Family Medical History: Cancer Additional Family Medical History / Comment(s): Colon cancer Father Family Medical History: Hypertension Brother(s) Family Medical History: No Reported History Additional Family Medical History / Comment(s): Diverticulitis Sister(s) Family Medical History: Cancer Additional Family Medical History / Comment(s): Head and neck cancer, brain aneurysm Daughter(s) Family Medical History: No Reported History Son(s) Family Medical History: No Reported History <Garcia Saha - Last Filed: 09/01/19 15:12> General Exam Limitations: no limitations <Garcia Saha - Last Filed: 09/01/19 15:12> Course Vital Signs 09/01/19 14:38 Temperature 98.0 F Pulse Rate 88 Respiratory 18 Rate Blood Pressure 143/88 O2 Sat by Pulse 99 Oximetry Medical Decision Making - Lab Data Result diagrams: 09/01/19 16:00 09/01/19 16:00 <Tulio Moser - Last Filed: 09/01/19 17:08> - Medical Decision Making EKG shows normal sinus rhythm at 85 bpm WA interval 250 QRS is 82 QT interval 390 QTC is 464 per patient's EKG shows no ST segment elevation or depression. Patient's EKG shows Q waves in the inferior leads. I will back into reevaluate the patient after her potassium came back at 4.2 and patient admitted to me that it was possible that she got herself worked up with some anxiety because she had not had her potassium tested on a regular basis l dioni she supposed to. (Tulio Moser) - Lab Data Lab Results 09/01/19 09/01/19 Range/Units 16:00 16:00 WBC 7.7 (3.8-10.6) k/uL RBC 4.20 (3.80-5.40) m/uL Hgb 14.1 (11.4-16.0) gm/dL Hct 41.7 (34.0-46.0) % MCV 99.2 (80.0-100.0) fL MCH 33.6 (25.0-35.0) pg MCHC 33.8 (31.0-37.0) g/dL RDW 11.8 (11.5-15.5) % Plt Count 253 (150-450) k/uL Neutrophils % 66 % Lymphocytes % 20 % Monocytes % 7 % Eosinophils % 5 % Basophils % 1 % Neutrophils # 5.1 (1.3-7.7) k/uL Lymphocytes # 1.5 (1.0-4.8) k/uL Monocytes # 0.5 (0-1.0) k/uL Eosinophils # 0.4 (0-0.7) k/uL Basophils # 0.0 (0-0.2) k/uL Sodium 138 (137-145) mmol/L Potassium 4.2 (3.5-5.1) mmol/L Chloride 107 (98-107) mmol/L Carbon Dioxide 26 (22-30) mmol/L Anion Gap 5 mmol/L BUN 11 (7-17) mg/dL Creatinine 0.64 (0.52-1.04) mg/dL Est GFR (CKD-EPI)AfAm >90 (>60 ml/min/1.73 sqM) Est GFR (CKD-EPI)NonAf >90 (>60 ml/min/1.73 sqM) Glucose 97 (74-99) mg/dL Calcium 9.1 (8.4-10.2) mg/dL Ionized Calcium Caitlyn 4.9 (4.5-5.3) mg/dL Magnesium 2.2 (1.6-2.3) mg/dL Disposition <Garcia Saha - Last Filed: 09/01/19 15:12> Is patient prescribed a controlled substance at d/c from ED?: No Time of Disposition: 17:08 <Tuloi Moser - Last Filed: 09/01/19 17:08> Clinical Impression: Lightheaded Disposition: HOME SELF-CARE Condition: Good Instructions (If sedation given, give patient instructions): Lightheadedness (ED) Referrals: Cristian Lin MD [Primary Care Provider] - 1-2 days
[2019-09-01 16:14] LABS: Ionized Calcium 4.9 mg/dL (4.5-5.3)
[2019-09-01] MEDS ORDERED: NITROGLYCERIN SL TABS 0.4 MG TAB SUBLINGUAL PRN (16:14)
[2019-09-01 16:29] LABS: African American GFR (CKD) >90 (>60 ml/min/1.73 sqM); Anion Gap 5 mmol/L; Basophils % (A) 1 %; Blood Urea Nitrogen 11 mg/dL (7-17); Calcium 9.1 mg/dL (8.4-10.2); Carbon Dioxide 26 mmol/L (22-30); Chloride 107 mmol/L (98-107); Eosinophils # (A) 0.4 k/uL (0-0.7); Eosinophils % (A) 5 %; Glucose 97 mg/dL (74-99); HCT 41.7 % (34.0-46.0); HGB 14.1 gm/dL (11.4-16.0); Lymphocytes # (A) 1.5 k/uL (1.0-4.8); Lymphocytes % (A) 20 %; MCH 33.6 pg (25.0-35.0); MCHC 33.8 g/dL (31.0-37.0); MCV 99.2 fL (80.0-100.0); Magnesium 2.2 mg/dL (1.6-2.3); Mean Platelet Volume 7.5; Monocytes # (A) 0.5 k/uL (0-1.0); Monocytes % (A) 7 %; Neutrophils # (A) 5.1 k/uL (1.3-7.7); Neutrophils % (A) 66 %; Non-African American GFR(CKD) >90 (>60 ml/min/1.73 sqM); Platelet Count 253 k/uL (150-450); Potassium 4.2 mmol/L (3.5-5.1); RDW 11.8 % (11.5-15.5); Sodium 138 mmol/L (137-145); WBC 7.7 k/uL (3.8-10.6)
[2019-09-01 17:34] VITALS: BP 140/82; PULSE 85
[2019-09-01] MEDS ORDERED: NITROGLYCERIN OINT 1 INCH/GM PACKET TOPICAL SCH (18:00)
[2019-09-02] MEDS ORDERED: ASPIRIN 325 MG TAB PO SCH (09:00)
== END 2019-09-01 17:34 | disposition home or self-care (01) ==
LOC: EC 14:35
DX: R42 Dizziness and giddiness (principal); J44.9 Chronic obstructive pulmonary disease, unspecified; I10 Essential (primary) hypertension; F41.0 Panic disorder [episodic paroxysmal anxiety]; G40.909 Epilepsy, unspecified, not intractable, without status epilepticus; Z79.82 Long term (current) use of aspirin; Z79.51 Long term (current) use of inhaled steroids; Z79.899 Other long term (current) drug therapy; Z91.048 Other nonmedicinal substance allergy status; Z88.1 Allergy status to other antibiotic agents; Z88.5 Allergy status to narcotic agent; Z88.6 Allergy status to analgesic agent; Z88.0 Allergy status to penicillin; Z88.8 Allergy status to other drugs, medicaments and biological substances; Z85.41 Personal history of malignant neoplasm of cervix uteri; Z87.891 Personal history of nicotine dependence
CPT/HCPCS: 36415; 80048; 82330; 83735; 85025; 93005; 99284

== ENCOUNTER → 2019-10-25 | Outpatient (CLI) | payer OTHER ==
[2019-10-25 21:42] LABS: African American GFR (CKD) 106.1 (60.0-200.0); Anion Gap 4.3 mmol/L (4.00-12.00); BUN/Creat Ratio 11.43 Ratio (12.00-20.00); Calcium 9.3 mg/dL (8.7-10.3); Carbon Dioxide 29.7 mmol/L (21.6-31.8); Non-African American GFR(CKD) 91.6 (60.0-200.0); Potassium 4.4 mmol/L (3.5-5.5)
== END | disposition home or self-care (01) ==
LOC: LABWHC1 10:56
PROVIDERS: ATTEND Nurse Practitioner Family
DX: E87.6 Hypokalemia (principal)
CPT/HCPCS: 36415; 80048

== ENCOUNTER → 2020-01-31 | Outpatient (CLI) | payer OTHER ==
--- NOTE | 2020-01-31 12:07 | MM ---
Reason for exam: additional evaluation requested from prior study. Last mammogram was performed 1 year and 11 months ago. History: Patient is postmenopausal and has history of other cancer at age 33. Took estrogen for 1 year beginning at age 33. Took progesterone for 1 year beginning at age 33. Physical Findings: Nurse did not find any significant physical abnormalities on exam. MG Diagnostic Mammo w CAD [place] Bilateral CC and MLO view(s) were taken. Prior study comparison: March 11, 2018, bilateral MG diagnostic mammo w CAD [place]. September 11, 2017, bilateral MG screening mammo w CAD. There is chronic nodularity in the left breast. No significant new findings when compared with previous films. These results were verbally communicated with the patient and result sheet given to the patient on 01/31/20. ASSESSMENT: Incomplete: need additional imaging evaluation, BI-RAD 0 RECOMMENDATION: Ultrasound of the left breast. (palpable)
--- NOTE | 2020-01-31 12:08 | USB ---
Reason for exam: additional evaluation requested from abnormal screening. History: Patient is postmenopausal and has history of other cancer at age 33. Took estrogen for 1 year beginning at age 33. Took progesterone for 1 year beginning at age 33. US Breast Limited LT Left limited breast ultrasound including focal area of concern, retroareolar and axilla demonstrates no cystic or solid lesion seen. These results were verbally communicated with the patient and result sheet given to the patient on 01/31/20. ASSESSMENT: Negative, BI-RAD 1 RECOMMENDATION: Routine screening mammogram of both breasts in 1 year. Manage on a clinical basis with regard to palpable.
--- NOTE | 2020-01-31 15:31 | BD ---
EXAMINATION TYPE: Axial Bone Density DATE OF EXAM: 01/31/2020 COMPARISON: NONE CLINICAL HISTORY: Height: 61 IN Weight: 138 LBS FRAX RISK QUESTIONS: Secondary Osteoporosis: 3. Menopause before 45: YES TOTAL HYST AGE 33 RISK FACTORS HISTORY OF: Active: YES Postmenopausal woman: TOTAL HYST AGE 33 Take estrogen and/or progesterone medications: NOT NOW How lon YEARS MEDICATIONS: Additional Medications: VIT D, POTASSIUM, SEIZURE MEDS, STOMACH MEDS, BABY ASPIRIN, PRESTIQUE,SERAQUE LLE EXAM MEASUREMENTS: Bone mineral densitometry was performed using the [employer]. Bone mineral density as measured about the Lumbar spine is: ----- L1-L4(G/cm2): 0.885 T Score Values are as follows: ----- L2: -2.8 ----- L3: -2.1 ----- L4: -3.0 ----- L1-L4: -2.5 Bone mineral density BASELINE Bone mineral density about the R hip (g/cm2): 0.648 Bone mineral density about the L hip (g/cm2): 0.665 T Score values are as follows: -----R Neck: -2.8 -----L Neck: -2.7 -----R Total: -2.2 -----L Total: -2.2 Bone mineral density BASELINE IMPRESSION: Osteoporosis (T Score less than -2.5). There is increased fracture risk and therapy is usually indicated based on age. Re-Screen 1-2 years. NOTE: T-SCORE=SD OF THE YOUNG ADULT MEAN.
== END | disposition home or self-care (01) ==
LOC: RADMAMWWP 10:51
PROVIDERS: ATTEND Family Medicine
DX: N63.20 Unspecified lump in the left breast, unspecified quadrant (principal); R92.8 Other abnormal and inconclusive findings on diagnostic imaging of breast; M81.0 Age-related osteoporosis without current pathological fracture
CPT/HCPCS: 77066; 77080

== ENCOUNTER 2020-10-23 18:17 | Observation (INO) | payer MEDICARE, OTHER ==
[2020-10-23] MEDS ORDERED: ONDANSETRON 4 MG/2 ML VIAL IVP STA (19:22)
[2020-10-23] MEDS ORDERED: MORPHINE SULFATE 4 MG/ML SYRINGE IV STA (19:22)
[2020-10-23] MEDS ORDERED: SODIUM CHLORIDE 0.9% 1,000 ML IV STA (19:22)
--- NOTE | 2020-10-23 19:35 | ED ---
Abdominal Pain HPI - General Chief Complaint: Abdominal Pain Stated Complaint: Abd pain Time Seen by Provider: 10/23/20 19:10 Source: patient Mode of arrival: ambulatory Limitations: no limitations - History of Present Illness Initial Comments: 65 year-old female patient with past medical history significant for diverticulitis and cervical cancer, is s/p cholecystectomy, colectomy, and complete hysterectomy presents to the emergency department today for evaluation of right upper quadrant abdominal pain. Patient states that pain started 4 days ago, radiates to her right flank, and now right lower quadrant. Reports increase in pain after eating. Did have several episodes of vomiting three nights ago. Denies any diarrhea or constipation. Denies fever but has had episodes of sweating and chills. Was seen and evaluated at [facility], underwent lab testing and CT scan. Did have elevated wbc count at [address] scan abdomen and pelvis. She was discharged. Followed up with her primary care physician today and presented here when pain worsened this evening. Patient denies any recent rash, cough, shortness of breath, chest pain, numbness, tingling, dizziness, weakness, hematuria, dysuria, urinary urgency, urinary frequency, headache, visual changes, or any other complaints. - Related Data Home Medications Medication Instructions Recorded Confirmed Brivaracetam [Briviact] 100 mg PO BID 08/12/16 10/23/20 Montelukast [Singulair] 10 mg PO HS 09/17/17 10/23/20 Pantoprazole [Protonix] 40 mg PO DAILY 12/03/17 10/23/20 Aspirin 81 mg PO DAILY 08/10/18 10/23/20 Desvenlafaxine Succinate [Pristiq] 25 mg PO HS 08/10/18 10/23/20 Fluticasone Nasal [place] [Flonase 2 spray EA NOSTRIL DAILY PRN 08/10/18 10/23/20 Nasal [place]] Atorvastatin [Lipitor] 20 mg PO DAILY 11/22/18 10/23/20 Potassium Chloride ER [K-Dur 10] 10 meq PO DAILY 07/04/19 10/23/20 Albuterol Sulfate [Proair Hfa] 2 puff INHALATION RT-QID PRN 10/23/20 10/23/20 Budesonide/Formoterol Fumarate 2 puff INHALATION RT-BID 10/23/20 10/23/20 [Symbicort 160-4.5 Mcg Inhaler] Metoprolol Succinate (ER) [Toprol 25 mg PO DAILY 10/23/20 10/23/20 Xl] Previous Rx's Medication Instructions Recorded Nitroglycerin Sl Tabs [Nitrostat] 0.4 mg SUBLINGUAL Q5M PRN #25 tab 09/24/17 Allergies Allergy/AdvReac Type Severity Reaction Status Date / Time adhesive Allergy Itching Verified 10/23/20 22:07 ciprofloxacin [From Cipro] Allergy Rash/Hives Verified 10/23/20 22:07 ciprofloxacin HCl Allergy Rash/Hives Verified 10/23/20 22:07 [From Cipro] clarithromycin [From Biaxin] Allergy Rash/Hives Verified 10/23/20 22:07 hydrocodone bitartrate Allergy Rash/Hives Verified 10/23/20 22:07 [From Vicodin] hydromorphone HCl Allergy Itching Verified 10/23/20 22:07 [From Dilaudid] levofloxacin [From Levaquin] Allergy Rash/Hives Verified 10/23/20 22:07 meloxicam [From Mobic] Allergy Rash/Hives Verified 10/23/20 22:07 oxycodone Allergy Rash/Hives Verified 10/23/20 22:07 Penicillins Allergy Swelling Verified 10/23/20 22:07 IN THROAT propoxyphene napsylate Allergy Rash/Hives Verified 10/23/20 22:07 [From Darvocet-N] dicyclomine [From Bentyl] AdvReac Confusion Verified 10/23/20 22:07 ipratropium [From Atrovent] AdvReac Chest Pain Verified 10/23/20 22:07 lorazepam [From Ativan] AdvReac seizures Verified 10/23/20 22:07 promethazine HCl AdvReac seizures Verified 10/23/20 22:07 [From Phenergan] tramadol HCl [From Ultram] AdvReac seizures Verified 10/23/20 22:07 DERMABOND Allergy Severe Rash/Hives Uncoded 10/23/20 18:29 Review of Systems ROS Statement: Those systems with pertinent positive or pertinent negative responses have been documented in the HPI. ROS Other: All systems not noted in ROS Statement are negative. Past Medical History Past Medical History: Asthma, Coronary Artery Disease (CAD), Cancer, COPD, Hyperlipidemia, Hypertension, Seizure Disorder Additional Past Medical History / Comment(s): Last seizure APRIL 28 OR JUN 2018. Chronic pancreatitis. Kidney stones. Recurring hiatal hernia. Migraines. Heart murmur. Diverticulitis. Fatty liver. Pain clinic. Osteopenia. Cervical cancer history in 1988. History of Any Multi-Drug Resistant Organisms: None Reported Past Surgical History: Appendectomy, Bladder Surgery, Bowel Resection, Cholecystectomy, Heart Catheterization, Hysterectomy, Orthopedic Surgery Additional Past Surgical History / Comment(s): Surgery on right salivary gland. Right elbow nerve surgery. EGD. Colonoscopy. Justin fundoplasty. EMELYN 1988, bilateral oophorectomy 1989. Bladder sling procedure. Exploratory laparscopies. Pain clinic procedures. laparoscopic adhesions Past Anesthesia/Blood Transfusion Reactions: Previous Problems w/ Anesthesia, Postoperative Nausea & Vomiting (PONV) Additional Past Anesthesia/Blood Transfusion Reaction / Comment(s): Takes long time to awaken. Past Psychological History: Anxiety, Panic Disorder Smoking Status: Former smoker Past Alcohol Use History: None Reported Past Drug Use History: None Reported - Past Family History Mother Sister(s) Family Medical History: Cancer Additional Family Medical History / Comment(s): COLON CANCER. GRANDFATHER ALSO H AD COLON CANCER Mother Family Medical History: Cancer Additional Family Medical History / Comment(s): Colon cancer Father Family Medical History: Hypertension Brother(s) Family Medical History: No Reported History Additional Family Medical History / Comment(s): Diverticulitis Sister(s) Family Medical History: Cancer Additional Family Medical History / Comment(s): Head and neck cancer, brain aneurysm Daughter(s) Family Medical History: No Reported History Son(s) Family Medical History: No Reported History General Exam Limitations: no limitations General appearance: alert, in no apparent distress, other (This is a well- developed, well-nourished adult female patient in no acute distress. Vital signs upon presentation are temperature 98.3F, pulse 104, respirations 18, blood pressure 148/100, pulse ox 98% on room air.) Eye exam: Present: normal appearance, PERRL, EOMI. Absent: scleral icterus, conjunctival injection, periorbital swelling ENT exam: Present: normal exam, normal oropharynx, mucous membranes moist Respiratory exam: Present: normal lung sounds bilaterally. Absent: respiratory distress, wheezes, rales, rhonchi, stridor Cardiovascular Exam: Present: regular rate, normal rhythm, normal heart sounds. Absent: systolic murmur, diastolic murmur, rubs, gallop, clicks GI/Abdominal exam: Present: soft, tenderness (right upper quadrant, right lower quadrant, mid-epigastric ), normal bowel sounds. Absent: distended, guarding, rebound, rigid Neurological exam: Present: alert, oriented X3, CN II-XII intact Psychiatric exam: Present: normal affect, normal mood Skin exam: Present: warm, dry, intact, normal color. Absent: rash Course Vital Signs 10/23/20 10/23/20 10/23/20 18:25 20:20 20:58 Temperature 98.3 F Pulse Rate 104 H 88 72 Respiratory 18 22 18 Rate Blood Pressure 148/100 164/101 132/70 O2 Sat by Pulse 98 97 98 Oximetry 10/24/20 00:40 Temperature Pulse Rate 77 Respiratory 18 Rate Blood Pressure 127/87 O2 Sat by Pulse 95 Oximetry Medical Decision Making - Medical Decision Making 65-year-old female patient presents to the emergency department today for evaluation of right upper quadrant abdominal pain that radiates to the right flank. Symptoms were going on for the last 4 days. Did have some vomiting. She did have negative CT scan at outside facility. Labs here today show white blood cell count at 9.9. Liver enzymes are normal. Bilirubin normal. Urinalysis shows 21 white blood cells other is contamination with squamous epithelial cells, this will be sent for culture. She is afebrile here. We did give several doses of pain medication. She had negative ultrasound. She'll be admitted for intractable abdominal pain and further evaluation by general surgery. She has seen Dr. Capellan in the past. She verbalizes understanding and agrees with this plan. My attending is Dr. Hutchins. - Lab Data Result diagrams: 10/23/20 19:25 10/23/20 19:25 Lab Results 10/23/20 10/23/20 10/23/20 Range/Units 19:25 19:25 19:25 WBC 9.9 (3.8-10.6) k/uL RBC 4.81 (3.80-5.40) m/uL Hgb 16.1 H (11.4-16.0) gm/dL Hct 45.3 (34.0-46.0) % MCV 94.0 (80.0-100.0) fL MCH 33.4 (25.0-35.0) pg MCHC 35.5 (31.0-37.0) g/dL RDW 11.9 (11.5-15.5) % Plt Count 299 (150-450) k/uL MPV 6.9 Neutrophils % 65 % Lymphocytes % 25 % Monocytes % 5 % Eosinophils % 3 % Basophils % 1 % Neutrophils # 6.4 (1.3-7.7) k/uL Lymphocytes # 2.5 (1.0-4.8) k/uL Monocytes # 0.5 (0-1.0) k/uL Eosinophils # 0.3 (0-0.7) k/uL Basophils # 0.1 (0-0.2) k/uL Sodium 141 (137-145) mmol/L Potassium 4.3 (3.5-5.1) mmol/L Chloride 106 (98-107) mmol/L Carbon Dioxide 26 (22-30) mmol/L Anion Gap 9 mmol/L BUN 13 (7-17) mg/dL Creatinine 0.78 (0.52-1.04) mg/dL Est GFR (CKD-EPI)AfAm >90 (>60 ml/min/1.73 sqM) Est GFR (CKD-EPI)NonAf 80 (>60 ml/min/1.73 sqM) Glucose 100 H (74-99) mg/dL Plasma Lactic Acid [place]u (0.7-2.0) mmol/L Calcium 10.1 (8.4-10.2) mg/dL Total Bilirubin 0.6 (0.2-1.3) mg/dL AST 32 (14-36) U/L ALT 23 (4-34) U/L Alkaline Phosphatase 124 (38-126) U/L Troponin I (0.000-0.034) ng/mL Total Protein 7.1 (6.3-8.2) g/dL Albumin 5.0 (3.5-5.0) g/dL Lipase 289 (23-300) U/L Urine Color Yellow Urine Appearance Cloudy H (Clear) Urine pH 5.5 (5.0-8.0) Ur Specific [place] 1.035 (1.001-1.035) Urine Protein 1+ H (Negative) Urine Glucose (UA) Negative (Negative) Urine Ketones 1+ H (Negative) Urine Blood Negative (Negative) Urine Nitrite Negative (Negative) Urine Bilirubin Negative (Negative) Urine Urobilinogen <2.0 (<2.0) mg/dL Ur Leukocyte Esterase Moderate H (Negative) Urine RBC 2 (0-5) /hpf Urine WBC 21 H (0-5) /hpf Ur Squamous Epith Cells 9 H (0-4) /hpf Hyaline Casts 7 H (0-2) /lpf Urine Mucus Many H (None) /hpf 10/23/20 10/23/20 Range/Units 19:25 19:25 WBC (3.8-10.6) k/uL RBC (3.80-5.40) m/uL Hgb (11.4-16.0) gm/dL Hct (34.0-46.0) % MCV (80.0-100.0) fL MCH (25.0-35.0) pg MCHC (31.0-37.0) g/dL RDW (11.5-15.5) % Plt Count (150-450) k/uL MPV Neutrophils % % Lymphocytes % % Monocytes % % Eosinophils % % Basophils % % Neutrophils # (1.3-7.7) k/uL Lymphocytes # (1.0-4.8) k/uL Monocytes # (0-1.0) k/uL Eosinophils # (0-0.7) k/uL Basophils # (0-0.2) k/uL Sodium (137-145) mmol/L Potassium (3.5-5.1) mmol/L Chloride (98-107) mmol/L Carbon Dioxide (22-30) mmol/L Anion Gap mmol/L BUN (7-17) mg/dL Creatinine (0.52-1.04) mg/dL Est GFR (CKD-EPI)AfAm (>60 ml/min/1.73 sqM) Est GFR (CKD-EPI)NonAf (>60 ml/min/1.73 sqM) Glucose (74-99) mg/dL Plasma Lactic Acid [place] 1.1 (0.7-2.0) mmol/L Calcium (8.4-10.2) mg/dL Total Bilirubin (0.2-1.3) mg/dL AST (14-36) U/L ALT (4-34) U/L Alkaline Phosphatase (38-126) U/L Troponin I <0.012 (0.000-0.034) ng/mL Total Protein (6.3-8.2) g/dL Albumin (3.5-5.0) g/dL Lipase (23-300) U/L Urine Color Urine Appearance (Clear) Urine pH (5.0-8.0) Ur Specific [place] (1.001-1.035) Urine Protein (Negative) Urine Glucose (UA) (Negative) Urine Ketones (Negative) Urine Blood (Negative) Urine Nitrite (Negative) Urine Bilirubin (Negative) Urine Urobilinogen (<2.0) mg/dL Ur Leukocyte Esterase (Negative) Urine RBC (0-5) /hpf Urine WBC (0-5) /hpf Ur Squamous Epith Cells (0-4) /hpf Hyaline Casts (0-2) /lpf Urine Mucus (None) /hpf - EKG Data -: EKG Interpreted by Nh EKG Comments: EKG obtained at 2128 shows normal sinus rhythm with a ventricular rate of 85, NE interval 142, QRS duration 80, QT 404, QTC 480. No evidence of ST elevation or depression. - Radiology Data Radiology results: report reviewed, image reviewed Ultrasound of the right upper quadrant was obtained. Report was reviewed in its entirety. Impression by Dr. Almaraz shows right renal cortical atrophy. No hydronephrosis. No dilated ducts. No ascites. Possible nonobstructing 5 mm c alculus lower pole right kidney. Disposition Clinical Impression: Intractable abdominal pain, Vomiting Disposition: ADMITTED IP TO THIS [facility] Condition: Serious Referrals: Alex Gomez DO [Primary Care Provider] - 1-2 days Decision to Admit Reason: Admit from EC Decision Date: 10/24/20 Decision Time: 01:33
[2020-10-23 19:41] LABS: Basophils # (A) 0.1 k/uL (0-0.2); Basophils % (A) 1 %; Eosinophils # (A) 0.3 k/uL (0-0.7); Eosinophils % (A) 3 %; HCT 45.3 % (34.0-46.0); HGB 16.1 gm/dL (11.4-16.0); Lymphocytes # (A) 2.5 k/uL (1.0-4.8); Lymphocytes % (A) 25 %; MCH 33.4 pg (25.0-35.0); MCHC 35.5 g/dL (31.0-37.0); Mean Platelet Volume 6.9; Monocytes # (A) 0.5 k/uL (0-1.0); Monocytes % (A) 5 %; Neutrophils # (A) 6.4 k/uL (1.3-7.7); Neutrophils % (A) 65 %; Platelet Count 299 k/uL (150-450); RBC 4.81 m/uL (3.80-5.40); RDW 11.9 % (11.5-15.5); WBC 9.9 k/uL (3.8-10.6)
[2020-10-23 19:50] LABS: ALT 23 U/L (4-34); AST 32 U/L (14-36); African American GFR (CKD) >90 (>60 ml/min/1.73 sqM); Alkaline Phosphatase 124 U/L (38-126); Anion Gap 9 mmol/L; Blood Urea Nitrogen 13 mg/dL (7-17); Calcium 10.1 mg/dL (8.4-10.2); Carbon Dioxide 26 mmol/L (22-30); Chloride 106 mmol/L (98-107); Glucose 100 mg/dL (74-99); Lipase 289 U/L (23-300); Non-African American GFR(CKD) 80 (>60 ml/min/1.73 sqM); Potassium 4.3 mmol/L (3.5-5.1); Sodium 141 mmol/L (137-145); Total Bilirubin 0.6 mg/dL (0.2-1.3); Total Protein 7.1 g/dL (6.3-8.2)
[2020-10-23] MEDS ORDERED: KETOROLAC 15 MG/ML 1 ML VIAL IVP STA (20:45)
[2020-10-23 21:36] LABS: Appearance,Urine Cloudy (Clear); Bilirubin,Urine Negative (Negative); Blood,Urine Negative (Negative); Color,Urine Yellow; Glucose,Urine (UA) Negative (Negative); Hyaline Casts,Urine 7 /lpf (0-2); Ketones,Urine 1+ (Negative); Leukocyte Esterase,Urine Moderate (Negative); Mucus,Urine Many /hpf; Nitrite,Urine Negative (Negative); PH, Urine 5.5 (5.0-8.0); Protein,Urine 1+ (Negative); RBC,Urine 2 /hpf (0-5); Specific Gravity,Urine 1.035 (1.001-1.035); Squamous Epithelial Cell,Urine 9 /hpf (0-4); Urobilinogen,Urine <2.0 mg/dL (<2.0); WBC,Urine 21 /hpf (0-5)
[2020-10-24] MEDS ORDERED: MORPHINE SULFATE 4 MG/ML SYRINGE IVP STA (00:22)
[2020-10-24] MEDS ORDERED: ONDANSETRON 4 MG/2 ML VIAL IVP STA (00:22)
--- NOTE | 2020-10-24 01:00 | US ---
EXAMINATION TYPE: US abdomen limited DATE OF EXAM: 10/24/2020 COMPARISON: NONE CLINICAL HISTORY: RUQ pain; pain after eating; hx cholecystectomy. RUQ pain. Hx cholecystectomy, ana endectomy, bowel resection. EXAM MEASUREMENTS: Liver Length: 12.9 cm Gallbladder Wall: Cholecystectomy. CBD: Not visualized. Right Kidney: 9.2 x 6.2 x 5.4 cm Limited exam due to overlying bowel gas. Pancreas: Obscured. Liver: Appears coarse in echotexture. Limited due to gas. Evidence for sonographic Fritz's sign: CBD: Not visualized. Right Kidney: Cortex appears thin. Pyramids appear to be prominent. Hyperechoic focus seen: 0.5 x 0.7 x 0.3 cm. IMPRESSION: There is right renal cortical atrophy. No hydronephrosis. No dilated ducts. No ascites. Possible nono bstructing 5 mm calculus lower pole right kidney.
[2020-10-24] MEDS ORDERED: MORPHINE SULFATE 4 MG/ML SYRINGE IV PRN (01:31)
[2020-10-24] MEDS ORDERED: NALOXONE 0.4 MG/ML 1 ML VIAL IV PRN (01:31)
[2020-10-24] MEDS ORDERED: METOCLOPRAMIDE 5 MG/ML 2 ML VIAL IVP STA (01:53)
[2020-10-24] MEDS ORDERED: diphenhydrAMINE 50 MG/ML 1 ML VIAL IVP STA (01:53)
[2020-10-24] MEDS: SODIUM CHLORIDE 0.9% 1,000 ML IV SCH ×2 (02:09→15:55)
[2020-10-24] MEDS: ONDANSETRON 4 MG/2 ML VIAL IVP PRN ×2 (09:01→15:55)
[2020-10-24] MEDS ORDERED: FLUTICASONE 50MCG/SPRAY NASAL 16GM EA NOSTRIL PRN (10:27)
[2020-10-24] MEDS ORDERED: ALBUTEROL NEBULIZED 2.5 MG/3 ML INHALATION PRN (10:27)
[2020-10-24] MEDS ORDERED: NITROGLYCERIN SL TABS 0.4 MG TAB SUBLINGUAL PRN (10:27)
[2020-10-24] MEDS: PANTOPRAZOLE 40 MG/10 ML VIAL IVP SCH (12:20)
--- NOTE | 2020-10-24 15:36 | P.HPIM ---
History of Present Illness 65 year-old female patient with past medical history significant for diverticulitis and cervical cancer, is s/p cholecystectomy, colectomy, and complete hysterectomy presents to the emergency department today for evaluation of right upper quadrant abdominal pain. Patient states that pain started 4 days ago, radiates to her right flank, and now right lower quadrant. Reports increase in pain after eating. Did have several episodes of vomiting three nights ago. Denies any diarrhea or constipation. Denies fever but has had episodes of sweating and chills. Was seen and evaluated at [facility], underwent lab testing and CT scan. Did have elevated wbc count at [address] scan abdomen and pelvis. She was discharged. Followed up with her primary care physician today and presented here when pain worsened this evening. Patient denies any recent rash, cough, shortness of breath, chest pain, numbness, tingling, dizziness, weakness, hematuria, dysuria, urinary urgency, urinary frequency, headache, visual changes, or any other complaints. Patient had an abdominal ultrasound which showed nephrolithiasis with a nonobst ructing 5 mm calculus in the lower pole of the right kidney. Patient had a cholecystectomy in the past. Urine and analysis is bit the abnormal was consulted and felt which is contaminated urine sample but not impressive for urinary tract infection. Patient has normal liver enzymes. General surgery was consulted. Patient will be started on Protonix twice a day. Patient's abdominal pain improved but still nauseous. Review of Systems REVIEW OF SYSTEMS: CONSTITUTIONAL: No fever, no malaise, no fatigue. HEENT: No recent visual problems or hearing problems. Denied any sore throat. CARDIOVASCULAR: No chest pain, orthopnea, PND, no palpitations, no syncope. PULMONARY: No shortness of breath, no cough, no hemoptysis. GASTROINTESTINAL: As mentioned in HPI NEUROLOGICAL: No headaches, no weakness, no numbness. HEMATOLOGICAL: Denies any bleeding or petechiae. GENITOURINARY: Denies any burning micturition, frequency, or urgency. MUSCULOSKELETAL/RHEUMATOLOGICAL: Denies any joint pain, swelling, or any muscle pain. ENDOCRINE: Denies any polyuria or polydipsia. The rest of the 14-point review of systems is negative. Past Medical History Past Medical History: Asthma, Coronary Artery Disease (CAD), Cancer, COPD, Hyperlipidemia, Hypertension, Seizure Disorder Additional Past Medical History / Comment(s): Last seizure APRIL 28 OR JUN 2018. Chronic pancreatitis. Kidney stones. Recurring hiatal hernia. Migraines. Heart murmur. Diverticulitis. Fatty liver. Pain clinic. Osteopenia. Cervical cancer history in 1988. History of Any Multi-Drug Resistant Organisms: None Reported Past Surgical History: Appendectomy, Bladder Surgery, Bowel Resection, Cholecystectomy, Heart Catheterization, Hysterectomy, Orthopedic Surgery Additional Past Surgical History / Comment(s): Surgery on right salivary gland. Right elbow nerve surgery. EGD. Colonoscopy. Justin fundoplasty. EMELYN 1988, bilateral oophorectomy 1989. Bladder sling procedure. Exploratory laparscopies. Pain clinic procedures. laparoscopic adhesions Past Anesthesia/Blood Transfusion Reactions: Previous Problems w/ Anesthesia, Postoperative Nausea & Vomiting (PONV) Additional Past Anesthesia/Blood Transfusion Reaction / Comment(s): Takes long time to awaken. Past Psychological History: Anxiety, Panic Disorder Smoking Status: Former smoker Past Alcohol Use History: None Reported Past Drug Use History: None Reported - Past Family History Mother Sister(s) Family Medical History: Cancer Additional Family Medical History / Comment(s): COLON CANCER. GRANDFATHER ALSO HAD COLON CANCER Mother Family Medical History: Cancer Additional Family Medical History / Comment(s): Colon cancer Father Family Medical History: Hypertension Brother(s) Family Medical History: No Reported History Additional Family Medical History / Comment(s): Diverticulitis Sister(s) Family Medical History: Cancer Additional Family Medical History / Comment(s): Head and neck cancer, brain aneurysm Daughter(s) Family Medical History: No Reported History Son(s) Family Medical History: No Reported History Medications and Allergies Home Medications Medication Instructions Recorded Confirmed Type Brivaracetam [Briviact] 100 mg PO BID 08/12/16 10/23/20 History Montelukast [Singulair] 10 mg PO HS 09/17/17 10/23/20 History Nitroglycerin Sl Tabs [Nitrostat] 0.4 mg SUBLINGUAL Q5M PRN #25 tab 09/24/17 10/23/20 Rx Pantoprazole [Protonix] 40 mg PO DAILY 12/03/17 10/23/20 History Aspirin 81 mg PO DAILY 08/10/18 10/23/20 History Desvenlafaxine Succinate [Pristiq] 25 mg PO HS 08/10/18 10/23/20 History Fluticasone Nasal [place] [Flonase 2 spray EA NOSTRIL DAILY PRN 08/10/18 10/23/20 History Nasal [place]] Atorvastatin [Lipitor] 20 mg PO DAILY 11/22/18 10/23/20 History Potassium Chloride ER [K-Dur 10] 10 meq PO DAILY 07/04/19 10/23/20 History Albuterol Sulfate [Proair Hfa] 2 puff INHALATION RT-QID PRN 10/23/20 10/23/20 History Budesonide/Formoterol Fumarate 2 puff INHALATION RT-BID 10/23/20 10/23/20 Hist ory [Symbicort 160-4.5 Mcg Inhaler] Metoprolol Succinate (ER) [Toprol 25 mg PO DAILY 10/23/20 10/23/20 History Xl] Allergies Allergy/AdvReac Type Severity Reaction Status Date / Time adhesive Allergy Itching Verified 10/23/20 22:07 ciprofloxacin [From Cipro] Allergy Rash/Hives Verified 10/23/20 22:07 ciprofloxacin HCl Allergy Rash/Hives Verified 10/23/20 22:07 [From Cipro] clarithromycin [From Biaxin] Allergy Rash/Hives Verified 10/23/20 22:07 hydrocodone bitartrate Allergy Rash/Hives Verified 10/23/20 22:07 [From Vicodin] hydromorphone HCl Allergy Itching Verified 10/23/20 22:07 [From Dilaudid] levofloxacin [From Levaquin] Allergy Rash/Hives Verified 10/23/20 22:07 meloxicam [From Mobic] Allergy Rash/Hives Verified 10/23/20 22:07 oxycodone Allergy Rash/Hives Verified 10/23/20 22:07 Penicillins Allergy Swelling Verified 10/23/20 22:07 IN THROAT propoxyphene napsylate Allergy Rash/Hives Verified 10/23/20 22:07 [From Darvocet-N] dicyclomine [From Bentyl] AdvReac Confusion Verified 10/23/20 22:07 ipratropium [From Atrovent] AdvReac Chest Pain Verified 10/23/20 22:07 lorazepam [From Ativan] AdvReac seizures Verified 10/23/20 22:07 promethazine HCl AdvReac seizures Verified 10/23/20 22:07 [From Phenergan] tramadol HCl [From Ultram] AdvReac seizures Verified 10/23/20 22:07 DERMABOND Allergy Severe Rash/Hives Uncoded 10/23/20 18:29 Physical Exam Vitals: Vital Signs Temp Pulse Pulse Resp BP BP Pulse Ox 10/24/20 15:00 98.5 F 84 16 158/90 98 10/24/20 13:14 98.7 F 97 18 151/73 98 10/24/20 07:52 94 18 155/84 98 10/24/20 05:00 75 18 135/84 95 10/24/20 02:00 78 22 154/85 98 10/24/20 00:40 77 18 127/87 95 10/23/20 20:58 72 18 132/70 98 10/23/20 20:20 88 22 164/101 97 10/23/20 18:25 98.3 F 104 H 18 148/100 98 PHYSICAL EXAMINATION: GENERAL: The patient is alert and oriented x3, not in any acute distress. Well developed, well nourished. HEENT: Pupils are round and equally reacting to light. EOMI. No scleral icterus. No conjunctival pallor. Normocephalic, atraumatic. No pharyngeal erythema. No thyromegaly. CARDIOVASCULAR: S1 and S2 present. No murmurs, rubs, or gallops. PULMONARY: Chest is clear to auscultation, no wheezing or crackles. ABDOMEN: Soft, nontender, nondistended, normoactive bowel sounds. No palpable organomegaly. MUSCULOSKELETAL: No joint swelling or deformity. EXTREMITIES: No cyanosis, clubbing, or pedal edema. NEUROLOGICAL: Gross neurological examination did not reveal any focal deficits. SKIN: No rashes. Results CBC & Chem 7: 10/23/20 19:25 10/23/20 19:25 Labs: Abnormal Lab Results - Last 24 Hours (Table) 10/23/20 10/23/20 10/23/20 Range/Units 19:25 19:25 19:25 Hgb 16.1 H (11.4-16.0) gm/dL Glucose 100 H (74-99) mg/dL Urine Appearance Cloudy H (Clear) Urine Protein 1+ H (Negative) Urine Ketones 1+ H (Negative) Ur Leukocyte Esterase Moderate H (Negative) Urine WBC 21 H (0-5) /hpf Ur Squamous Epith Cells 9 H (0-4) /hpf Hyaline Casts 7 H (0-2) /lpf Urine Mucus Many H (None) /hpf Microbiology - Last 24 Hours (Table) 10/23/20 19:25 Urine Culture - Preliminary Urine,Clean Catch Assessment and Plan Plan: -Abdominal pain nausea in the right upper quadrant: Alex related to gastritis or peptic ulcer disease will increase the Protonix to twice a day and cannot completely rule out this nonobstructive renal calculi is contributing to her pain and nausea. Her abdominal pain although improved. Patient will be continue on IV fluids, continue with Zofran. General surgery was consulted. -Coronary artery disease -COPD without any acute exacerbation Hyperlipidemia -Hypertension -Seizure disorder -Anxiety disorder -DVT prophylaxis: Ambulation
[2020-10-24] MEDS: SYMBICORT 160-4.5 MCG INHALER INHALATION SCH (20:51)
[2020-10-24] MEDS ORDERED: Desvenlafaxine Succinate [Pristiq] 25 MG Tab.Er.24h PO SCH (21:00)
[2020-10-24] MEDS ORDERED: MONTELUKAST 10 MG TAB PO SCH (21:00)
--- NOTE | 2020-10-24 22:08 | P.GSCN ---
History of Present Illness Consult date: 10/24/20 History of present illness: CHIEF COMPLAINT: Right upper quadrant abdominal pain HISTORY OF PRESENT ILLNESS: The patient is a 65 year old female who presents with intractable nausea and vomiting including right upper quadrant abdominal pain. She reports the pain is sharp and radiates from her right flank to the right upper abdomen. Her symptoms has been ongoing for more than 1-2 days. She reports prior episodes. Her pain is moderate to severe. She presents to the ER for the severity of her pain. She has personal history of kidney stones. Gen. surgery is consulted for moderate to severe right upper quadrant abdominal pain. PAST MEDICAL HISTORY: See list and reviewed PAST SURGICAL HISTORY: See list and reviewed MEDICATIONS: See list and reviewed ALLERGIES: See list and reviewed SOCIAL HISTORY: See list and reviewed FAMILY HISTORY: See list and reviewed REVIEW OF ORGAN SYSTEMS: CONSTITUTIONAL: No fevers or chills. No recent weight loss. EYES: Denies any trouble with vision. No glasses. HEENT: No difficulties with hearing. No nosebleeds. No difficulty swallowing. RESPIRATORY: Has asthma. Has chronic obstructive pulmonary disease CARDIOVASCULAR: Has hyperlipidemia. Has hypertensive heart disease. Has coronary artery disease. History of chronic pancreatitis. GASTROINTESTINAL: Has gastroesophageal reflux disease. Has hiatal hernia and diverticulosis. GENITOURINARY: Denies any blood in urine or increased urinary frequency. Has kidney stones. NEUROLOGICAL: Denies any numbness or tingling along the distal extremities. Has seizure disorder. Has migraines. MUSCULOSKELETAL: Has back pain, stiffness or joint arthritis. SKIN: No current skin cancer. No rash. PSYCHIATRIC: Has depressive disorder. Has anxiety disorder and panic disorder. HEME/LYMPHATIC: Denies any lumps and bumps around the neck. No recent deep ve nous thrombosis. ALLERGY/IMMUNOLOGY: No immunoglobulin therapy. No immune deficiencies. BREAST: Denies current breast lumps, pain or nipple discharge. PHYSICAL EXAM: VITALS: Reviewed CONSTITUTIONAL: Well developed and in no acute distress. EYES: Conjuctivae without sclera icterus. Extraocular movements grossly intact. HEAD, EARS, NOSE, THROAT: Moist buccal mucosa. Head is atraumatic, normoc ephalic. Hears conversational speech. No nasal drainage. NECK: Supple. No JV distention. No thyroidomegaly. RESPIRATORY: Non-labored respirations and equal bilateral excursions. No gross wheezes. CARDIOVASCULAR: Regular rate and rhythm. Extremities without moderate edema. Palpable 2+ radial pulses. ABDOMEN: Tender right upper quadrant. No gross peritonitis. LYMPH: No neck lymphadenopathy. MUSCULOSKELETAL: Nail and fingers with good capillary refill. SKIN: Warm and well perfused with good skin turgor. NEUROLOGIC: Cranial nerves II through XII grossly intact. Sensation upper and ex tremities intact. No focal or lateralizing signs. PSYCH: Appropriate affect. Alert and oriented to person, place and time. Displays appropriate insight. CLINCAL LABS: Reviewed. WBC normal 9.9. IMAGING: Independently reviewed of the right upper quadrant ultrasound with gallbladder surgically absent. Common bile duct within normal limits. This is my independent interpretation. RADIOLOGY: Report reviewed with nonobstructive 5 mm kidney stone along the right pole of the kidney. RECORDS: previous old records reviewed. Lysis of adhesions 2017 reviewed. Operative Findings: 1. Dense adhesions along the epigastrium consistent with patient's location of pain 2. All adhesions lysed including epigastrium, right upper quadrant and left lower quadrant ASSESSMENT: 1. Intractable nausea and vomiting with right upper quadrant abdominal pain 2. Kidney stones 3. History of peritoneal adhesions PLAN: 1. Recommend management of kidney stones. 2. Antiemetics for intractable nausea vomiting 3. May benefit from CT of the abdomen and pelvis Past Medical History Past Medical History: Asthma, Coronary Artery Disease (CAD), Cancer, COPD, Hyperlipidemia, Hypertension, Seizure Disorder Additional Past Medical History / Comment(s): Last seizure APRIL 28 OR JUN 2018. Chronic pancreatitis. Kidney stones. Recurring hiatal hernia. Migraines. Heart murmur. Diverticulitis. Fatty liver. Pain clinic. Osteopenia. Cervical cancer history in 1988. History of Any Multi-Drug Resistant Organisms: None Reported Past Surgical History: Appendectomy, Bladder Surgery, Bowel Resection, Cholecystectomy, Heart Catheterization, Hysterectomy, Orthopedic Surgery Additional Past Surgical History / Comment(s): Surgery on right salivary gland. Right elbow nerve surgery. EGD. Colonoscopy. Justin fundoplasty. EMELYN 1988, bilateral oophorectomy 1989. Bladder sling procedure. Exploratory laparscopies. Pain clinic procedures. laparoscopic adhesions Past Anesthesia/Blood Transfusion Reactions: Previous Problems w/ Anesthesia, Postoperative Nausea & Vomiting (PONV) Additional Past Anesthesia/Blood Transfusion Reaction / Comm: Takes long time to awaken. Past Psychological History: Anxiety, Panic Disorder Additional Psychological History / Comment(s): . Smoking Status: Former smoker Past Alcohol Use History: None Reported Additional Past Alcohol Use History / Comment(s): Smoked 20 years, mostly 1 PPD. Quit 1998. Past Drug Use History: None Reported - Past Family History Mother Sister(s) Family Medical History: Cancer Additional Family Medical History / Comment(s): COLON CANCER. GRANDFATHER ALSO HAD COLON CANCER Mother Family Medical History: Cancer Additional Family Medical History / Comment(s): Colon cancer Father Family Medical History: Hypertension Brother(s) Family Medical History: No Reported History Additional Family Medical History / Comment(s): Diverticulitis Sister(s) Family Medical History: Cancer Additional Family Medical History / Comment(s): Head and neck cancer, brain aneurysm Daughter(s) Family Medical History: No Reported History Son(s) Family Medical History: No Reported History Medications and Allergies Home Medications Medication Instructions Recorded Confirmed Type Brivaracetam [Briviact] 100 mg PO BID 08/12/16 10/23/20 History Montelukast [Singulair] 10 mg PO HS 09/17/17 10/23/20 History Nitroglycerin Sl Tabs [Nitrostat] 0.4 mg SUBLINGUAL Q5M PRN #25 tab 09/24/17 10/23/20 Rx Pantoprazole [Protonix] 40 mg PO DAILY 12/03/17 10/23/20 History Aspirin 81 mg PO DAILY 08/10/18 10/23/20 History Desvenlafaxine Succinate [Pristiq] 25 mg PO HS 08/10/18 10/23/20 History Fluticasone Nasal [place] [Flonase 2 spray EA NOSTRIL DAILY PRN 08/10/18 10/23/20 History Nasal [place]] Atorvastatin [Lipitor] 20 mg PO DAILY 11/22/18 10/23/20 History Potassium Chloride ER [K-Dur 10] 10 meq PO DAILY 07/04/19 10/23/20 History Albuterol Sulfate [Proair Hfa] 2 puff INHALATION RT-QID PRN 10/23/20 10/23/20 History Budesonide/Formoterol Fumarate 2 puff INHALATION RT-BID 10/23/20 10/23/20 History [Symbicort 160-4.5 Mcg Inhaler] Metoprolol Succinate (ER) [Toprol 25 mg PO DAILY 10/23/20 10/23/20 History Xl] Allergies Allergy/AdvReac Type Severity Reaction Status Date / Time adhesive Allergy Itching Verified 10/23/20 22:07 ciprofloxacin [From Cipro] Allergy Rash/Hives Verified 10/23/20 22:07 ciprofloxacin HCl Allergy Rash/Hives Verified 10/23/20 22:07 [From Cipro] clarithromycin [From Biaxin] Allergy Rash/Hives Verified 10/23/20 22:07 hydrocodone bitartrate Allergy Rash/Hives Verified 10/23/20 22:07 [From Vicodin] hydromorphone HCl Allergy Itching Verified 10/23/20 22:07 [From Dilaudid] levofloxacin [From Levaquin] Allergy Rash/Hives Verified 10/23/20 22:07 meloxicam [From Mobic] Allergy Rash/Hives Verified 10/23/20 22:07 oxycodone Allergy Rash/Hives Verified 10/23/20 22:07 Penicillins Allergy Swelling Verified 10/23/20 22:07 IN THROAT propoxyphene napsylate Allergy Rash/Hives Verified 10/23/20 22:07 [From Darvocet-N] dicyclomine [From Bentyl] AdvReac Confusion Verified 10/23/20 22:07 ipratropium [From Atrovent] AdvReac Chest Pain Verified 10/23/20 22:07 lorazepam [From Ativan] AdvReac seizures Verified 10/23/20 22:07 promethazine HCl AdvReac seizures Verified 10/23/20 22:07 [From Phenergan] tramadol HCl [From Ultram] AdvReac seizures Verified 10/23/20 22:07 DERMABOND Allergy Severe Rash/Hives Uncoded 10/23/20 18:29 Surgical - Exam Vital Signs Temp Pulse Resp BP Pulse Ox 98.3 F 104 H 18 148/100 98 10/23/20 18:25 10/23/20 18:25 10/23/20 18:25 10/23/20 18:25 10/23/20 18:25 Results - Labs 10/23/20 19:25 10/23/20 19:25 Microbiology - Last 24 Hours (Table) 10/23/20 19:25 Urine Culture - Preliminary Urine,Clean Catch Assessment and Plan (1) Right upper quadrant abdominal pain Current Visit: Yes Status: Acute Code(s): R10.11 - RIGHT UPPER QUADRANT PAIN SNOMED Code(s): 137020333 (2) Peritoneal adhesions Current Visit: Yes Status: Acute Code(s): K66.0 - PERITONEAL ADHESIONS (POSTPROCEDURAL) (POSTINFECTION) SNOMED Code(s): 76267753 (3) Kidney stone on right side Current Visit: Yes Status: Acute Code(s): N20.0 - CALCULUS OF KIDNEY SNOMED Code(s): 12040028 (4) Intractable abdominal pain Current Visit: Yes Status: Acute Code(s): R10.9 - UNSPECIFIED ABDOMINAL PAIN SNOMED Code(s): 37237981 (5) Vomiting Current Visit: Yes Status: Acute Code(s): R11.10 - VOMITING, UNSPECIFIED SNOMED Code(s): 889315507
[2020-10-25] MEDS: SODIUM CHLORIDE 0.9% 1,000 ML IV SCH ×2 (03:45→12:34)
[2020-10-25 08:20] VITALS: BP 138/79; PULSE 84; RESP 16; TEMP 98
[2020-10-25] MEDS: SYMBICORT 160-4.5 MCG INHALER INHALATION SCH (08:30)
[2020-10-25 08:51] LABS: HCT 40.8 % (37.2-46.3); HGB 14.1 g/dL (12.0-15.0); MCH 32.9 pg (27.0-32.0); MCHC 34.6 g/dL (32.0-37.0); MCV 95.1 fL (80.0-97.0); Platelet Count 249 X 10*3/uL (140-440); RBC 4.29 X 10*6/uL (4.10-5.20); RDW 11.6 % (11.5-14.5); WBC 10.83 X 10*3/uL (4.50-10.00)
[2020-10-25] MEDS: PANTOPRAZOLE 40 MG/10 ML VIAL IVP SCH (08:57)
[2020-10-25] MEDS ORDERED: METOPROLOL SUCCINATE (ER) 25 MG TAB.ER.24H PO SCH (09:00)
[2020-10-25] MEDS ORDERED: ASPIRIN 81 MG PO SCH (09:00)
[2020-10-25] MEDS ORDERED: ATORVASTATIN 20 MG TAB PO SCH (09:00)
--- NOTE | 2020-10-25 11:00 | CT ---
EXAMINATION TYPE: CT abdomen pelvis wo con DATE OF EXAM: 10/25/2020 COMPARISON: CT 12/22/2018 HISTORY: Right upper and lower quadrant pain CT DLP: 282.9 mGycm Automated exposure control for dose reduction was used. TECHNIQUE: Helical acquisition of images from the lung bases through the pelvis. FINDINGS: Lack of intravenous contrast could compromise sensitivity. Distal esophagus is somewhat dil ated, there is postop change at the gastroesophageal junction. Metallic densities present at the mitr al valve level LUNG BASES: No significant abnormality is appreciated. AORTA: No significant abnormality is appreciataed. LIVER/GB: Patient is post cholecystectomy. Liver shows no mass. PANCREAS: No significant abnormality is seen. SPLEEN: No significant abnormality is seen. ADRENALS: No significant abnormality is seen. KIDNEYS: No significant abnormality is seen. REPRODUCTIVE ORGANS: No significant abnormality is seen. URINARY BLADDER: No significant abnormality is seen. BOWEL: Diverticular changes associated with the colon, postop change noted at the rectosigmoid level , no evident appendicitis FREE AIR: No Free Air is visible. ASCITES: None visible. PELVIC ADENOPATHY: None visualized. RETROPERITONEAL ADENOPATHY: No Retroperitoneal Adenopathy visible. OSSEOUS STRUCTURES: Metallic densities are present at the pubic bones as on prior. IMPRESSION: NONCONTRAST EXAM. POSTOP CHANGES. DIVERTICULOSIS.
[2020-10-25 11:33] LABS: African American GFR (CKD) 110.9 (60.0-200.0); Anion Gap 9.7 mmol/L (4.00-12.00); BUN/Creat Ratio 13.33 Ratio (12.00-20.00); Calcium 8.8 mg/dL (8.7-10.3); Carbon Dioxide 22.3 mmol/L (21.6-31.8); Non-African American GFR(CKD) 95.7 (60.0-200.0); Potassium 3.9 mmol/L (3.5-5.5)
[2020-10-26] MEDS ORDERED: PANTOPRAZOLE 40 MG TABLET PO SCH (07:30)
--- NOTE | 2020-10-26 09:24 | P.DS ---
Providers Date of admission: 10/24/20 01:41 Expected date of discharge: 10/25/20 Attending physician: Yuliana Harrington Consults: 10/24/20 01:32 Consult Physician Routine Consulting Provider: Nora Capellan Consult Reason/Comments: Intractable abdominal pain Do you want consulting provider notified?: Yes Primary care physician: Alex Gomez Hospital Course: Final diagnosis -Abdominal pain nausea in the right upper quadrant: Most likely related to gastritis or peptic ulcer disease -Diverticulosis is noted on CT -nonobstructive renal calculi as noted on ultrasound -Coronary artery disease -COPD without any acute exacerbation -Hyperlipidemia -Hypertension -Seizure disorder -Anxiety disorder -DVT prophylaxis Discharge disposition Patient is being discharged in a stable condition with guarded prognosis to home. Patient will follow-up with Dr. Alex Gomez in the outpatient setting upon discharge. Patient is to also follow up with Dr. Weaver in one week. Patient will continue on Protonix twice daily. Total time taken is greater than 35 minutes. Hospital course 65 year-old female patient with past medical history significant for diverticulitis and cervical cancer, is s/p cholecystectomy, colectomy, and complete hysterectomy presents to the emergency department today for evaluation of right upper quadrant abdominal pain. Patient states that pain started 4 days ago, radiates to her right flank, and now right lower quadrant. Reports increase in pain after eating. Did have several episodes of vomiting three nights ago. Denies any diarrhea or constipation. Denies fever but has had episodes of sweating and chills. Was seen and evaluated at [facility], underwent lab testing and CT scan. Did have elevated wbc count at [address] scan abdomen and pelvis. She was discharged. Followed up with her primary care physician today and presented here when pain worsened this evening. Patient denies any recent rash, cough, shortness of breath, chest pain, numbness, tingling, dizziness, weakness, hematuria, dysuria, urinary urgency, urinary frequency, headache, visual changes, or any other complaints. Patient had an abdominal ultrasound which showed nephrolithiasis with a nonobstructing 5 mm calculus in the lower pole of the right kidney. Patient had a cholecystectomy in the past. Urine and analysis is bit the abnormal was consulted and felt which is contaminated urine sample but not impressive for urinary tract infection. Patient has normal liver enzymes. General surgery was consulted. Patient will be started on Protonix twice a day. Patient's abdominal pain improved but still nauseous. 10/25/2020 Patient is seen in follow-up underwent repeat CT abdomen showing diverticulosis and was started on diet and tolerated. Patient was seen and evaluated by surgery recommending continuing strict diet and Protonix twice daily and outpatient follow-up in 1-[address] Weaver. Patient continued to have some mild abdominal discomfort although states improved when she is up and walking and able to pass gas. She will continue on Protonix 40 mg twice daily until follow-up and instructed to follow a strict diverticulosis diet. Currently patient denies any chest pain, shortness of breath, or palpitations. Patient is afebrile. No reports of nausea or vomiting and patient is tolerating diet. She will be discharged home today. On exam vital signs are stable. Cardio S1, S2 are muffled. Respiratory system shows diminished breath sounds at the bases with no wheezing or rhonchi noted. Abdomen is soft and nontender. Nervous system shows no focal deficits. Please refer to medication reconciliation sheet for a list of medications. Patient Condition at Discharge: Stable Plan - Discharge Summary Discharge Rx Participant: No New Discharge Prescriptions: New Ondansetron Odt [Zofran Odt] 4 mg PO Q8HR PRN #12 tab PRN Reason: Nausea Continue Brivaracetam [Briviact] 100 mg PO BID Montelukast [Singulair] 10 mg PO HS Nitroglycerin Sl Tabs [Nitrostat] 0.4 mg SUBLINGUAL Q5M PRN #25 tab PRN Reason: Chest Pain Desvenlafaxine Succinate [Pristiq] 25 mg PO HS Fluticasone Nasal [place] [Flonase Nasal [place]] 2 spray EA NOSTRIL DAILY PRN PRN Reason: Allergy Symptoms Aspirin 81 mg PO DAILY Atorvastatin [Lipitor] 20 mg PO DAILY Potassium Chloride ER [K-Dur 10] 10 meq PO DAILY Budesonide/Formoterol Fumarate [Symbicort 160-4.5 Mcg Inhaler] 2 puff IN HALATION RT-BID Metoprolol Succinate (ER) [Toprol XL] 25 mg PO DAILY Albuterol Sulfate [Proair Hfa] 2 puff INHALATION RT-QID PRN PRN Reason: Shortness Of Breath Changed Pantoprazole [Protonix] 40 mg PO BID 30 Days #60 tab Discharge Medication List Brivaracetam [Briviact] 100 mg PO BID 08/12/16 [History] Montelukast [Singulair] 10 mg PO HS 09/17/17 [History] Nitroglycerin Sl Tabs [Nitrostat] 0.4 mg SUBLINGUAL Q5M PRN #25 tab 09/24/17 [Rx] Aspirin 81 mg PO DAILY 08/10/18 [History] Desvenlafaxine Succinate [Pristiq] 25 mg PO HS 08/10/18 [History] Fluticasone Nasal [place] [Flonase Nasal [place]] 2 spray EA NOSTRIL DAILY PRN 08/10/18 [History] Atorvastatin [Lipitor] 20 mg PO DAILY 11/22/18 [History] Potassium Chloride ER [K-Dur 10] 10 meq PO DAILY 07/04/19 [History] Albuterol Sulfate [Proair Hfa] 2 puff INHALATION RT-QID PRN 10/23/20 [History] Budesonide/Formoterol Fumarate [Symbicort 160-4.5 Mcg Inhaler] 2 puff INHALATION RT-BID 10/23/20 [History] Metoprolol Succinate (ER) [Toprol XL] 25 mg PO DAILY 10/23/20 [History] Ondansetron Odt [Zofran Odt] 4 mg PO Q8HR PRN #12 tab 10/25/20 [Rx] Pantoprazole [Protonix] 40 mg PO BID 30 Days #60 tab 10/25/20 [Rx] Follow up Appointment(s)/Referral(s): Nora Capellan MD [STAFF PHYSICIAN] - 11/06/20 3:30 pm (for persistent Diverticulosis issues) Alex Gomez DO [Primary Care Provider] - 1-2 days ( Office will call you with appointment time) Patient Instructions/Handouts: Diverticulosis (DC), Diverticulosis Diet (GEN) Activity/Diet/Wound Care/Special Instructions: Activity Limited until follow-up Follow-up with primary care provider upon discharge Follow-up with GI outpatient Continue with Protonix twice daily Follow strict diet Encourage walking around Discharge Disposition: HOME SELF-CARE
== END 2020-10-25 15:00 | disposition home or self-care (01) ==
LOC: EC 18:17 → 6NMEDSUR 10-24 01:41
PROVIDERS: ADMIT Hospitalist; ATTEND Hospitalist
DX: R10.11 Right upper quadrant pain (principal); K57.90 Diverticulosis of intestine, part unspecified, without perforation or abscess without bleeding; R11.2 Nausea with vomiting, unspecified; I25.10 Atherosclerotic heart disease of native coronary artery without angina pectoris; I11.9 Hypertensive heart disease without heart failure; K76.0 Fatty (change of) liver, not elsewhere classified; N20.0 Calculus of kidney; K66.0 Peritoneal adhesions (postprocedural) (postinfection); K86.1 Other chronic pancreatitis; J44.9 Chronic obstructive pulmonary disease, unspecified; G40.909 Epilepsy, unspecified, not intractable, without status epilepticus; E78.5 Hyperlipidemia, unspecified; K44.9 Diaphragmatic hernia without obstruction or gangrene; G43.909 Migraine, unspecified, not intractable, without status migrainosus; M85.80 Other specified disorders of bone density and structure, unspecified site; M19.90 Unspecified osteoarthritis, unspecified site; F41.0 Panic disorder [episodic paroxysmal anxiety]; F32.9 Major depressive disorder, single episode, unspecified; Z87.442 Personal history of urinary calculi; Z85.41 Personal history of malignant neoplasm of cervix uteri; Z87.891 Personal history of nicotine dependence; Z79.82 Long term (current) use of aspirin; Z79.899 Other long term (current) drug therapy; Z79.51 Long term (current) use of inhaled steroids; Z88.6 Allergy status to analgesic agent; Z88.1 Allergy status to other antibiotic agents; Z88.5 Allergy status to narcotic agent; Z88.0 Allergy status to penicillin; Z88.8 Allergy status to other drugs, medicaments and biological substances; Z91.048 Other nonmedicinal substance allergy status; Z90.49 Acquired absence of other specified parts of digestive tract; Z90.710 Acquired absence of both cervix and uterus; Z80.0 Family history of malignant neoplasm of digestive organs; Z82.49 Family history of ischemic heart disease and other diseases of the circulatory system; Z80.8 Family history of malignant neoplasm of other organs or systems; Z83.79 Family history of other diseases of the digestive system
CPT/HCPCS: 96376 ×2; 96375 ×3; 96374; 99285; 36415; 93005; 80053; 80048; 83605; 83690; 84484; 85025; 85027; 81001; 87086; 87635; 76705; 74176; G0378 ×2; J2270 ×2; J1200; J2765; J2405 ×2; J1885; C9113 ×2

== ENCOUNTER 2020-12-26 09:47 | Day surgery (SDC) | payer MEDICARE, OTHER ==
[2020-12-24 09:30] VITALS: BMI 26.2
[~2020-12-26 09:47] MED LIST changes: -CLINDAMYCIN 600 MG in DEXTROSE 5% IN WATER 50 ML IVPB STA; -HYDROmorphone 0.5 MG/0.5 ML SYRINGE IVP PRN; +LIDOCAINE 1% (10MG/ML) FOR IV START INTRADERMA PRN; -Pre Op ABX Message 1 EACH MISC MISCELLANE ONE
[2020-12-26] MEDS ORDERED: LACTATED RINGERS 1,000 ML IV ONE (10:16)
[2020-12-26 10:27] VITALS: RESP 16; TEMP 97.2
[2020-12-26] MEDS ORDERED: PROPOFOL 10 MG/ML 20 ML VIAL IV ONE (10:49)
--- NOTE | 2020-12-26 11:11 | P.GSHP ---
History of Present Illness H&P Date: 12/26/20 CHIEF COMPLAINT: Colon screen HISTORY OF PRESENT ILLNESS: The patient is a 65-year-old female who presents for colon screen. Lower endoscopy was offered for further evaluation and management. PAST MEDICAL HISTORY: Please see list. PAST SURGICAL HISTORY: Please see list. MEDICATIONS: Please see list. ALLERGIES: Please see list. SOCIAL HISTORY: No illicit drug use FAMILY HISTORY: No reports of Crohn disease or ulcerative colitis. REVIEW OF ORGAN SYSTEMS: CONSTITUTIONAL: No reports of fevers or chills. PHYSICAL EXAM: VITAL SIGNS: Stable GENERAL: Well-developed pleasant in no acute distress. HEENT: No scleral icterus. Extraocular movements grossly intact. Moist buccal mucosa. NECK: Supple without lymphadenopathy. CHEST: Unlabored respirations. Equal bilateral excursions. CARDIOVASCULAR: Regular rate and rhythm. Distal 2+ pulses. ABDOMEN: Soft, nontender, nondistended. MUSCULOSKELETAL: No clubbing, cyanosis, or edema. ASSESSMENT: 1. Colon screen. PLAN: 1. Recommend proceeding with a lower endoscopy Past Medical History Past Medical History: Asthma, Coronary Artery Disease (CAD), Cancer, COPD, Hyperlipidemia, Hypertension, Seizure Disorder Additional Past Medical History / Comment(s): Last seizure JUN 2018. Chronic pancreatitis. Kidney stones. Recurring hiatal hernia. Migraines. Heart murmur. Diverticulitis. Fatty liver. Pain clinic. Osteopenia. Cervical cancer history in 1988. History of Any Multi-Drug Resistant Organisms: None Reported Past Surgical History: Appendectomy, Bladder Surgery, Bowel Resection, Cholecystectomy, Heart Catheterization, Hysterectomy, Orthopedic Surgery Additional Past Surgical History / Comment(s): Surgery on right salivary gland. Right elbow nerve surgery. EGD. Colonoscopy. Justin fundoplasty. EMELYN 1988, bilateral oophorectomy 1989. Bladder sling procedure. Exploratory laparoscopies. Pain clinic procedures. laparoscopic adhesions Past Anesthesia/Blood Transfusion Reactions: Previous Problems w/ Anesthesia, Postoperative Nausea & Vomiting (PONV) Additional Past Anesthesia/Blood Transfusion Reaction / Comment(s): Takes long time to awaken. needs vein finder d/t difficult IV start Smoking Status: Former smoker - Past Family History Mother Sister(s) Family Medical History: Cancer Additional Family Medical History / Comment(s): COLON CANCER. GRANDFATHER ALSO HAD COLON CANCER Mother Family Medical History: Cancer Additional Family Medical History / Comment(s): Colon cancer Father Family Medical History: Hypertension Brother(s) Family Medical History: No Reported History Additional Family Medical History / Comment(s): Diverticulitis Sister(s) Family Medical History: Cancer Additional Family Medical History / Comment(s): Head and neck cancer, brain aneurysm Daughter(s) Family Medical History: No Reported History Son(s) Family Medical History: No Reported History Medications and Allergies Home Medications Medication Instructions Recorded Confirmed Type Brivaracetam [Briviact] 100 mg PO BID 08/12/16 12/26/20 History Montelukast [Singulair] 10 mg PO HS 09/17/17 12/26/20 History Nitroglycerin Sl Tabs [Nitrostat] 0.4 mg SUBLINGUAL Q5M PRN #25 tab 09/24/17 12/26/20 Rx Aspirin 81 mg PO DAILY 08/10/18 12/26/20 History Desvenlafaxine Succinate [Pristiq] 25 mg PO HS 08/10/18 12/26/20 History Fluticasone Nasal [place] [Flonase 2 spray EA NOSTRIL DAILY PRN 08/10/18 12/26/20 History Nasal [place]] Atorvastatin [Lipitor] 20 mg PO DAILY 11/22/18 12/26/20 History Potassium Chloride ER [K-Dur 10] 10 meq PO DAILY 07/04/19 12/26/20 History Albuterol Sulfate [Proair Hfa] 2 puff INHALATION RT-QID PRN 10/23/20 12/26/20 History Budesonide/Formoterol Fumarate 2 puff INHALATION RT-BID 10/23/20 12/26/20 History [Symbicort 160-4.5 Mcg Inhaler] Pantoprazole [Protonix] 40 mg PO BID 30 Days #60 tab 10/25/20 12/26/20 Rx Calcium Carbonate [Calcium] 600 mg PO DAILY 12/24/20 12/26/20 History Cholecalciferol [Vitamin D3 (25 50 mcg PO DAILY 12/24/20 12/26/20 History Mcg = 1000 Iu)] Cyanocobalamin (Vitamin B-12) 1,000 mcg PO DAILY 12/24/20 12/26/20 History [Vitamin B-12] Magnesium 200 mg PO DAILY 12/24/20 12/26/20 History Allergies Allergy/AdvReac Type Severity Reaction Status Date / Time adhesive Allergy Itching Verified 12/24/20 09:19 ciprofloxacin [From Cipro] Allergy Rash/Hives Verified 12/24/20 09:19 ciprofloxacin HCl Allergy Rash/Hives Verified 12/24/20 09:19 [From Cipro] clarithromycin [From Biaxin] Allergy Rash/Hives Verified 12/24/20 09:19 hydrocodone bitartrate Allergy Rash/Hives Verified 12/24/20 09:19 [From Vicodin] hydromorphone HCl Allergy Itching Verified 12/24/20 09:19 [From Dilaudid] levofloxacin [From Levaquin] Allergy Rash/Hives Verified 12/24/20 09:19 meloxicam [From Mobic] Allergy Rash/Hives Verified 12/24/20 09:19 oxycodone Allergy Rash/Hives Verified 12/24/20 09:19 Penicillins Allergy Swelling Verified 12/24/20 09:19 IN THROAT propoxyphene napsylate Allergy Rash/Hives Verified 12/24/20 09:19 [From Darvocet-N] dicyclomine [From Bentyl] AdvReac Confusion Verified 12/24/20 09:19 ipratropium [From Atrovent] AdvReac Chest Pain Verified 12/24/20 09:19 lorazepam [From Ativan] AdvReac seizures Verified 12/24/20 09:19 promethazine HCl AdvReac seizures Verified 12/24/20 09:19 [From Phenergan] tramadol HCl [From Ultram] AdvReac seizures Verified 12/24/20 09:19 DERMABOND Allergy Severe Rash/Hives Uncoded 12/24/20 09:19 Surgical - Exam Vital Signs Temp Pulse Resp BP Pulse Ox 97.2 F L 92 16 140/76 95 12/26/20 10:26 12/26/20 10:26 12/26/20 10:26 12/26/20 10:26 12/26/20 10:26
--- NOTE | 2020-12-26 11:16 | P.PCN ---
Date of Procedure: 12/26/20 Description of Procedure: PREOPERATIVE DIAGNOSIS: Colonoscopy screening. Personal history colon polyps POSTOPERATIVE DIAGNOSIS: Colonoscopy screening. Personal history colon polyps Diverticulosis, scattered. OPERATION: Colonoscopy to the cecum, ileocecal valve and appendiceal orifice. SURGEON: Nora Capellan MD. ANESTHESIA: MAC. INDICATIONS: The patient is a 65-year-old female who presents for colonoscopy screening. Benefits and risks were described and informed consent was obtained. DESCRIPTION OF PROCEDURE: The patient had undergone Sutab prep. The patient had been brought into the operating room and laid in the left lateral decubitus position. After adequate intravenous sedation, the rectum was examined with 2% lidocaine jelly. Eternal hemorrhoids were encountered. The rectal tone was within normal limits. No lesions were palpated in the rectal vault. An Olympus colonoscope was advanced until the cecum, ileocecal valve and appendiceal orifice were clearly viewed. The prep was excellent. Scattered diverticulosis was encountered. No colonic polyps were found. No evidence of focal colitis was found. Retroflexion of the scope demonstrated grade 1 internal hemorrhoids without active bleeding or inflammation. The colon was desufflated. The patient had tolerated the procedure well. Withdrawal time was over 6 minutes. FINDINGS: Aronchick preparation quality scale 1 (1-5) Internal hemorrhoids, grade 1 External prolapsed hemorrhoids, grade 1 No arteriovenous malformations. No adenomatous polyps. No focal colitis. RECOMMENDATIONS: Repeat colonoscopy in 5 years, 2025 Plan - Discharge Summary Discharge Rx Participant: No New Discharge Prescriptions: Continue Brivaracetam [Briviact] 100 mg PO BID Montelukast [Singulair] 10 mg PO HS Nitroglycerin Sl Tabs [Nitrostat] 0.4 mg SUBLINGUAL Q5M PRN #25 tab PRN Reason: Chest Pain Desvenlafaxine Succinate [Pristiq] 25 mg PO HS Fluticasone Nasal Reading [Flonase Nasal Reading] 2 spray EA NOSTRIL DAILY PRN PRN Reason: Allergy Symptoms Aspirin 81 mg PO DAILY Atorvastatin [Lipitor] 20 mg PO DAILY Potassium Chloride ER [K-Dur 10] 10 meq PO DAILY Budesonide/Formoterol Fumarate [Symbicort 160-4.5 Mcg Inhaler] 2 puff INHALATION RT-BID Magnesium 200 mg PO DAILY Cholecalciferol [Vitamin D3 (25 Mcg = 1000 Iu)] 50 mcg PO DAILY Cyanocobalamin (Vitamin B-12) [Vitamin B-12] 1,000 mcg PO DAILY Albuterol Sulfate [Proair Hfa] 2 puff INHALATION RT-QID PRN PRN Reason: Shortness Of Breath Pantoprazole [Protonix] 40 mg PO BID 30 Days #60 tab Calcium Carbonate [Calcium] 600 mg PO DAILY Discharge Medication List Brivaracetam [Briviact] 100 mg PO BID 08/12/16 [History] Montelukast [Singulair] 10 mg PO HS 09/17/17 [History] Nitroglycerin Sl Tabs [Nitrostat] 0.4 mg SUBLINGUAL Q5M PRN #25 tab 09/24/17 [Rx] Aspirin 81 mg PO DAILY 08/10/18 [History] Desvenlafaxine Succinate [Pristiq] 25 mg PO HS 08/10/18 [History] Fluticasone Nasal Reading [Flonase Nasal Reading] 2 spray EA NOSTRIL DAILY PRN 08/10/18 [History] Atorvastatin [Lipitor] 20 mg PO DAILY 11/22/18 [History] Potassium Chloride ER [K-Dur 10] 10 meq PO DAILY 07/04/19 [History] Albuterol Sulfate [Proair Hfa] 2 puff INHALATION RT-QID PRN 10/23/20 [History] Budesonide/Formoterol Fumarate [Symbicort 160-4.5 Mcg Inhaler] 2 puff INHALATION RT-BID 10/23/20 [History] Pantoprazole [Protonix] 40 mg PO BID 30 Days #60 tab 10/25/20 [Rx] Calcium Carbonate [Calcium] 600 mg PO DAILY 12/24/20 [History] Cholecalciferol [Vitamin D3 (25 Mcg = 1000 Iu)] 50 mcg PO DAILY 12/24/20 [History] Cyanocobalamin (Vitamin B-12) [Vitamin B-12] 1,000 mcg PO DAILY 12/24/20 [History] Magnesium 200 mg PO DAILY 12/24/20 [History] Follow up Appointment(s)/Referral(s): Nora Capellan MD [STAFF PHYSICIAN] - 1 Week Patient Instructions/Handouts: Diverticulosis Diet (GEN), Diverticulosis (DC) Activity/Diet/Wound Care/Special Instructions: Repeat colonoscopy 5 years, 2025 Discharge Disposition: HOME SELF-CARE
[2020-12-26 11:22] VITALS: BP 117/71; PULSE 87
== END 2020-12-26 11:58 | disposition home or self-care (01) ==
LOC: ORWHC2ENDO 09:47
PROVIDERS: ATTEND Surgery Plastic and Reconstructive Surgery
DX: Z12.11 Encounter for screening for malignant neoplasm of colon (principal); Z86.010 Personal history of colon polyps; K64.0 First degree hemorrhoids; K64.4 Residual hemorrhoidal skin tags; Z79.899 Other long term (current) drug therapy; Z79.82 Long term (current) use of aspirin; J44.9 Chronic obstructive pulmonary disease, unspecified; E78.5 Hyperlipidemia, unspecified; I10 Essential (primary) hypertension; I25.10 Atherosclerotic heart disease of native coronary artery without angina pectoris; G40.909 Epilepsy, unspecified, not intractable, without status epilepticus; K76.0 Fatty (change of) liver, not elsewhere classified; M85.80 Other specified disorders of bone density and structure, unspecified site; G43.909 Migraine, unspecified, not intractable, without status migrainosus; K44.9 Diaphragmatic hernia without obstruction or gangrene; K86.1 Other chronic pancreatitis; Z85.41 Personal history of malignant neoplasm of cervix uteri; Z87.891 Personal history of nicotine dependence; K57.90 Diverticulosis of intestine, part unspecified, without perforation or abscess without bleeding
CPT/HCPCS: 45378; J2704

== ENCOUNTER → 2021-01-31 | Outpatient (CLI) | payer MEDICARE, OTHER ==
--- NOTE | 2021-02-01 13:56 | MM ---
Reason for exam: screening (asymptomatic). Last mammogram was performed 1 year ago. History: Patient is postmenopausal and has history of other cancer at age 33. Benign excisional biopsy of the left breast, 2019. Took estrogen for 1 year beginning at age 33. Took progesterone for 1 year beginning at age 33. Physical Findings: A clinical breast exam by your physician is recommended on an annual basis and results should be correlated with mammographic findings. MG 3D Screening Mammo W/Cad Bilateral CC and MLO view(s) were taken. Prior study comparison: January 31, 2020, bilateral MG diagnostic mammo w CAD [place]. March 11, 2018, bilateral MG diagnostic mammo w CAD [facility]. There are scattered fibroglandular densities. There is chronic nodularity bilaterally. There is no discrete abnormality. ASSESSMENT: Benign, BI-RAD 2 RECOMMENDATION: Routine screening mammogram of both breasts in 1 year.
== END | disposition home or self-care (01) ==
LOC: RADMAMWWP 13:14
PROVIDERS: ATTEND Family Medicine
DX: Z12.31 Encounter for screening mammogram for malignant neoplasm of breast (principal); Z78.0 Asymptomatic menopausal state
CPT/HCPCS: 77063; 77067